=== PATIENT | female | born 1940 | race Caucasian/White ===

== ENCOUNTER 2017-06-21 09:21 | Outpatient (RCR) | payer MEDICARE, OTHER, SELFPAY ==
[2017-06-16 01:14] VITALS: BP 151/75; PULSE 62; RESP 16; TEMP 36.6
[2017-06-21 12:29] VITALS: BP 140/82; PULSE 66; RESP 18; TEMP 37
--- NOTE | 2017-06-21 14:23 | PCM.WC.PN ---
(1) Wound dehiscence, surgical Status: Chronic Current Visit: Yes Qualifiers: Encounter type: subsequent encounter (2) Wound, open, back Status: Chronic Current Visit: Yes Qualifiers: Encounter type: subsequent encounter Laterality: unspecified laterality Qualified Code(s): S21.209D - Unspecified open wound of unspecified back wall of thorax without penetration into thoracic cavity, subsequent encounter Code(s): S21.209A - Unspecified open wound of unspecified back wall of thorax without penetration into thoracic cavity, initial encounter Type of Wound Date of Service: 06/21/17 Chief Complaint: nonhealing surgical wound of lumbar spine History of Wound: Ijeoma is a 77 yo female that presents for evaluation and treatment of a nonhealing surgical wound dehiscence of her lumbar spine s/p spinal fusion revision on 04/25/17 at [facility]. Her recovery was complicated by anesthesia intolerance and development of pressure ulcers stage II on her buttocks as well as dehiscence of the wound with nonhealing at the distal end of the incision. She was transferred to inpatient Rehabilitation unit at [facility] after discharge from [facility] and discharged on 05/22/17 to home and will be getting continued care from Home Health for PT. The pressure ulcers healed during her stay at [facility] but the surgical wound did not. It was being treated with betadine and gauze. She was also started on Keflex 500 mg twice daily x 10 days and has two days left of treatment. Her denies any bleeding, only a small amount of drainage is present. Progress of Wound: Ijeoma is here in follow up for a surgical wound dehiscence. She tolerated the Natalee dressings and is healed today. She denies any fever or chills or drainage or erythema. - Physical Exam Vital Signs Temp Pulse Resp BP 98.6 F 66 18 140/82 H 06/21/17 12:29 06/21/17 12:29 06/21/17 12:29 06/21/17 12:29 General: Alert, Oriented x3, Cooperative, No apparent distress HEENT: Atraumatic, Normocephalic Oral: Moist Mucosa Skin: Ulcer/ Wound Wound Measurements and Assessment WC - Nurse 1 - General Ulcer Measurement Start: 06/21/17 12:29 Freq: Status: Active Protocol: Activity Type Activity Date Activity User E-Sign Co-Sign Detail Recorded Client Recorded Date Recorded By Document 06/21/17 12:29 [facility] [id number] 06/21/17 12:39 [facility] 06/21/17 12:29 Wound Center Nurse 1 [Ulcer Assessment Protocol: WC.WD.LOC] #1 LUMBAR INCISION DEHISCENCE -Combined with other wound No -Current Size (cm) - Length 0.1 -Current Size (cm) - Width 0.1 -Current Size (cm) - Depth 0.1 -Total Square Cm 0.01 -Epithelialization Large 67-100% -Tunneling No -Undermining/Tunneling No -Exudate Amt None Present (0 %) -Structure Exposed N/A -Texture (Kaitlin-wound Skin Appearance) Scarring -Moisture (Kaitlin-wound Skin Appearance Dry/Scaly ) -Color (Kaitlin-wound Skin Appearance) Assessed -Temperature (Kaitlin-wound Skin No Abnormality Appearance) (Pt Warm) -Tenderness on Palpation (Kaitlin-wound No Skin Appearance) -Ulcer Cleansing Rinsed/ Irrigated with Saline -Foul Odor after Cleansing No -Anesthetic Used 4% Lidocaine Solution - Nurse 2 - General Ulcer CM Notes Start: 06/21/17 12:29 Freq: Status: Active Protocol: Activity Type Activity Date Activity User E-Sign Co-Sign Detail Recorded Client Recorded Date Recorded By Document 06/21/17 12:56 [id number] 06/21/17 12:58 06/21/17 12:56 Wound Center Nurse 2 [Procedure/Treatment] -Time 12:57 -Correct Patient Yes -Correct Side, Site, Position Yes -Correct Procedure Yes -Procedure Performed Yes -Post Debridement Size (cm) - Length 0 -Post Debridement Size (cm) - Width 0 -Post Debridement Size (cm) - Depth 0 -Total Square Cm 0 -Wound/Ulcer Outcome Healed- Epithelialized -Ulcer Cleansing Rinsed/ Irrigated with Saline -Foul Odor after Cleansing No -Bioengineered Tissue No -Cetacaine [place] No -Topical Lidocaine (%) 5 -Bleeding Controlled with NA -Treatment Response Procedure Tolerated Well [See Physician Procedure note for Specifics] Pain Scale: 0-10 Numeric [Pain] -Is Patient Pain Free? Yes Psych/Mental Status: Normal Affect, Appropriate Debridement Note Post-Debridement Measurements/Treatment - Nurse 2 - General Ulcer CM Notes Start: 06/21/17 12:29 Freq: Status: Active Protocol: Activity Type Activity Date Activity User E-Sign Co-Sign Detail Recorded Client Recorded Date Recorded By Document 06/21/17 12:56 [id number] 06/21/17 12:58 06/21/17 12:56 Wound Center Nurse 2 #1 LUMBAR INCISION DEHISCENCE -Time 12:57 -Correct Patient Yes -Correct Side, Site, Position Yes -Correct Procedure Yes -Procedure Performed Yes -Post Debridement Size (cm) - Length 0 -Post Debridement Size (cm) - Width 0 -Post Debridement Size (cm) - Depth 0 -Total Square Cm 0 -Wound/Ulcer Outcome Healed- Epithelialized -Ulcer Cleansing Rinsed/ Irrigated with Saline -Foul Odor after Cleansing No -Bioengineered Tissue No -Cetacaine [place] No -Topical Lidocaine (%) 5 -Bleeding Controlled with NA -Treatment Response Procedure Tolerated Well Pain Scale: 0-10 Numeric Is Patient Pain Free? Yes Wound debrided: lumbar incision dehiscence Laterality: Not Applicable No debridement was completed today Assessment/Plan Active Problems Wound dehiscence, surgical (Chronic) Wound, open, back (Chronic) Assessment: surgical wound dehiscence of lumbar surgical wound Plan: Ijeoma'avery wound is healed today. Discussed using lotion to the area to avoid re-opening of the wound and advised her to call if she has any drainage or signs of dehiscence of the wound again. It has been a pleasure taking care of her. She will be discharged from the wound center and will return as needed.
--- NOTE | 2017-06-21 14:29 | PN.PCM_ITS ---
(1) Wound dehiscence, surgical Status: Chronic Current Visit: Yes Qualifiers: Encounter type: subsequent encounter (2) Wound, open, back Status: Chronic Current Visit: Yes Qualifiers: Encounter type: subsequent encounter Laterality: unspecified laterality Qualified Code(s): S21.209D - Unspecified open wound of unspecified back wall of thorax without penetration into thoracic cavity, subsequent encounter Code(s): S21.209A - Unspecified open wound of unspecified back wall of thorax without penetration into thoracic cavity, initial encounter Type of Wound Date of Service: 06/21/17 Chief Complaint: nonhealing surgical wound of lumbar spine History of Wound: Ijeoma is a 77 yo female that presents for evaluation and treatment of a nonhealing surgical wound dehiscence of her lumbar spine s/p spinal fusion revision on 04/25/17 at [facility]. Her recovery was complicated by anesthesia intolerance and development of pressure ulcers stage II on her buttocks as well as dehiscence of the wound with nonhealing at the distal end of the incision. She was transferred to inpatient Rehabilitation unit at [facility] after discharge from [facility] and discharged on 05/22/17 to home and will be getting continued care from Home Health for PT. The pressure ulcers healed during her stay at [facility] but the surgical wound did not. It was being treated with betadine and gauze. She was also started on Keflex 500 mg twice daily x 10 days and has two days left of treatment. Her denies any bleeding, only a small amount of drainage is present. Progress of Wound: Ijeoma is here in follow up for a surgical wound dehiscence. She tolerated the Natalee dressings and is healed today. She denies any fever or chills or drainage or erythema. - Physical Exam Vital Signs Temp Pulse Resp BP 98.6 F 66 18 140/82 H 06/21/17 12:29 06/21/17 12:29 06/21/17 12:29 06/21/17 12:29 General: Alert, Oriented x3, Cooperative, No apparent distress HEENT: Atraumatic, Normocephalic Oral: Moist Mucosa Skin: Ulcer/ Wound Wound Measurements and Assessment WC - Nurse 1 - General Ulcer Measurement Start: 06/21/17 12:29 Freq: Status: Active Protocol: Activity Type Activity Date Activity User E-Sign Co-Sign Detail Recorded Client Recorded Date Recorded By Document 06/21/17 12:29 [facility] [id number] 06/21/17 12:39 [facility] 06/21/17 12:29 Wound Center Nurse 1 [Ulcer Assessment Protocol: WC.WD.LOC] #1 LUMBAR INCISION DEHISCENCE -Combined with other wound No -Current Size (cm) - Length 0.1 -Current Size (cm) - Width 0.1 -Current Size (cm) - Depth 0.1 -Total Square Cm 0.01 -Epithelialization Large 67-100% -Tunneling No -Undermining/Tunneling No -Exudate Amt None Present (0 %) -Structure Exposed N/A -Texture (Kaitlin-wound Skin Appearance) Scarring -Moisture (Kaitlin-wound Skin Appearance Dry/Scaly ) -Color (Kaitlin-wound Skin Appearance) Assessed -Temperature (Kaitlin-wound Skin No Abnormality Appearance) (Pt Warm) -Tenderness on Palpation (Kaitlin-wound No Skin Appearance) -Ulcer Cleansing Rinsed/ Irrigated with Saline -Foul Odor after Cleansing No -Anesthetic Used 4% Lidocaine Solution - Nurse 2 - General Ulcer CM Notes Start: 06/21/17 12:29 Freq: Status: Active Protocol: Activity Type Activity Date Activity User E-Sign Co-Sign Detail Recorded Client Recorded Date Recorded By Document 06/21/17 12:56 [id number] 06/21/17 12:58 06/21/17 12:56 Wound Center Nurse 2 [Procedure/Treatment] -Time 12:57 -Correct Patient Yes -Correct Side, Site, Position Yes -Correct Procedure Yes -Procedure Performed Yes -Post Debridement Size (cm) - Length 0 -Post Debridement Size (cm) - Width 0 -Post Debridement Size (cm) - Depth 0 -Total Square Cm 0 -Wound/Ulcer Outcome Healed- Epithelialized -Ulcer Cleansing Rinsed/ Irrigated with Saline -Foul Odor after Cleansing No -Bioengineered Tissue No -Cetacaine [place] No -Topical Lidocaine (%) 5 -Bleeding Controlled with NA -Treatment Response Procedure Tolerated Well [See Physician Procedure note for Specifics] Pain Scale: 0-10 Numeric [Pain] -Is Patient Pain Free? Yes Psych/Mental Status: Normal Affect, Appropriate Debridement Note Post-Debridement Measurements/Treatment - Nurse 2 - General Ulcer CM Notes Start: 06/21/17 12:29 Freq: Status: Active Protocol: Activity Type Activity Date Activity User E-Sign Co-Sign Detail Recorded Client Recorded Date Recorded By Document 06/21/17 12:56 [id number] 06/21/17 12:58 06/21/17 12:56 Wound Center Nurse 2 #1 LUMBAR INCISION DEHISCENCE -Time 12:57 -Correct Patient Yes -Correct Side, Site, Position Yes -Correct Procedure Yes -Procedure Performed Yes -Post Debridement Size (cm) - Length 0 -Post Debridement Size (cm) - Width 0 -Post Debridement Size (cm) - Depth 0 -Total Square Cm 0 -Wound/Ulcer Outcome Healed- Epithelialized -Ulcer Cleansing Rinsed/ Irrigated with Saline -Foul Odor after Cleansing No -Bioengineered Tissue No -Cetacaine [place] No -Topical Lidocaine (%) 5 -Bleeding Controlled with NA -Treatment Response Procedure Tolerated Well Pain Scale: 0-10 Numeric Is Patient Pain Free? Yes Wound debrided: lumbar incision dehiscence Laterality: Not Applicable No debridement was completed today Assessment/Plan Active Problems Wound dehiscence, surgical (Chronic) Wound, open, back (Chronic) Assessment: surgical wound dehiscence of lumbar surgical wound Plan: Ijeoma'avery wound is healed today. Discussed using lotion to the area to avoid re-opening of the wound and advised her to call if she has any drainage or signs of dehiscence of the wound again. It has been a pleasure taking care of her. She will be discharged from the wound center and will return as needed.
== END 2017-07-14 23:59 ==
LOC: WC 09:21
PROVIDERS: Family Provider Family Medicine; PCP Family Medicine; Visit Provider Family Medicine
DX: T81.30XA Disruption of wound, unspecified, initial encounter (principal); Y83.8 Other surgical procedures as the cause of abnormal reaction of the patient, or of later complication, without mention of misadventure at the time of the procedure
CPT/HCPCS: 11042; 99213; G0463

== ENCOUNTER → 2017-09-19 15:33 | Outpatient (CLI) | payer MEDICARE, OTHER, SELFPAY ==
--- NOTE | 2017-09-19 15:36 | US_ITS ---
STUDY: SUPERFICIAL ULTRASOUND - LATERAL LEFT CALF REASON FOR EXAM: Female, 77 years old. Area of palpable mass/hardness in the lateral left calf. TECHNIQUE: A superficial ultrasound was performed with real-time and static alvarez-scale imaging. COMPARISON: None. FINDINGS: No discrete mass or fluid collection is demonstrated. Within the region of interest, there is fluid within the interstices of subcutaneous fat, consistent with edema. US/Ext Non Vasc Limited/Soft Tiss IMPRESSION: Subcutaneous edema in the area of interest. No discrete mass or fluid collection. Electronically Signed: Luís Pizarro MD at 4:36 EST , Service support ,
== END ==
PROVIDERS: Family Provider Family Medicine; PCP Family Medicine; Visit Provider Family Medicine
DX: R22.42 Localized swelling, mass and lump, left lower limb (principal)
CPT/HCPCS: 76882

== ENCOUNTER → 2017-10-30 09:58 | Outpatient (CLI) | payer MEDICARE, OTHER, SELFPAY ==
[2017-10-30 11:05] LABS: Absolute Lymphocyte Count 1.64 X10^3/ul (0.83-4.51); Absolute Neutrophil Count 3.9 X10^3/uL (2.0-7.7); Basophil# 0.04 X10^3/uL; Basophil% 0.6 % (0-1); Eosinophil# 0.25 X10^3/uL; Eosinophils% 3.7 % (0-5); Hematocrit 43.4 % (37-47); Lymphocyte # 1.64 X10^3/ul (4.0); Lymphocyte % 24.4 % (19-41); Mean Corp Hgb Conc 32.3 g/gl (32-36); Mean Corpuscular Hgb 29.8 pg (27.0-32.0); Mean Corpuscular Volume 92.3 fL (81-99); Mean Platelet Vol. 9.2 fl (6.2-12.0); Monocyte# 0.87 X10^3/uL; Monocyte% 12.9 % (0-10); Neutrophil # 3.86 X10^3/uL (2.7-7.7); Neutrophil % 57.4 % (47-70); Platelet Count 323 K/mm3 (150-450); RBC Distribution Width CV 16.5 % (11.6-14.6); RBC Distribution Width SD 54.6 fl (35.1-43.9); White Blood Count 6.7 K/mm3 (4.4-11.0)
[2017-10-30 11:07] LABS: POSITIVE COUNT NO; POSITIVE DIFFERENTIAL NO; POSITIVE MORPHOLOGY NO
[2017-10-30 11:28] LABS: Anion Gap 8 (5-15); BUN 25 mg/dL (7-18); BUN/Creat Ratio 20.5 RATIO (10-20); Calcium,Total 8.8 mg/dL (8.5-10.1); Chloride 110 mmol/L (98-107); Creatinine, Serum 1.22 mg/dL (0.55-1.02); EST Glomerular Filtration Rate 45 mL/min (>60); Est Glom Filt Rate - Afr Amer 55 mL/min (>60); Glucose 90 mg/dL (74-106); Iron 112 ug/dL (50-170); Potassium 3.9 mmol/L (3.5-5.1); Sodium Level 142 mmol/L (136-145)
== END ==
PROVIDERS: Family Provider Family Medicine; PCP Family Medicine; Visit Provider Family Medicine
DX: I10 Essential (primary) hypertension (principal); D50.9 Iron deficiency anemia, unspecified
CPT/HCPCS: 36415; 80048; 83540; 85025

== ENCOUNTER → 2017-11-14 13:19 | Outpatient (CLI) | payer MEDICARE, OTHER, SELFPAY ==
--- NOTE | 2017-11-14 13:21 | BI_ITS ---
MAMMOGRAPHY - BILATERAL SCREENING REASON FOR EXAM: Female, 77 years old. Routine annual screening examination. PERTINENT HISTORY: Daughter with breast cancer. TECHNIQUE: Digital bilateral breast emma (3D mammographic acquisition) in the CC and MLO projections. 2-D mediolateral oblique (MLO) and craniocaudad (CC) views of both breasts were obtained. CAD: Full Field Digital Mammography with Computer Added Detection was performed. COMPARISON: None. Baseline examination. FINDINGS: Breast Composition: The breasts are heterogeneously dense, which may obscure small masses. There are no dominant masses or suspicious calcifications. Small benign-appearing bilateral axillary lymph nodes. No other significant abnormalities are identified. BI/SCREENING MAMM (CAD), BILAT IMPRESSION: Negative screening mammogram. Yearly followup mammogram recommended. (A) ASSESSMENT CATEGORY: BIRADS Category 2: Benign. A letter regarding these results will be sent to the patient by the facility within 30 days. Approximately 10% of breast cancers are not detected by mammography. A normal mammogram should not delay biopsy of a clinically suspicious abnormality. [id number] Electronically Signed: Selvin Price MD at 10:09 EDT Tel [phone], Service support ,
--- NOTE | 2017-11-14 13:22 | BD_ITS ---
STUDY: DUAL ENERGY X-RAY ABSORPTIOMETRY / DXA REASON FOR EXAM: Female, 77 years old. Postmenopausal female. Smoking history. Takes Fosamax for 2 to 3 years. History of spinal fusion and left hip replacement. TECHNIQUE: Bone Mineral Density (BMD) measurements of bilateral forearm were obtained. COMPARISON: None. FINDINGS: Right Forearm: g/cm2 (0.790) / T-score (-1.1) / Z-score (1.6) Left Forearm: g/cm2 (0.799) / T-score (-1.0) / Z-score (1.7) BD/Dexa Bone Density/Append Skel IMPRESSION: The patient is considered osteopenic as outlined below according to World Joey Organization (WHO) criteria with a moderate fracture risk. Reference Information: The T-score is the number of standard deviations above or below the standard which is normal for young adults at their peak bone mineral density. The World Health Organization (WHO) interprets the T-scores as follows: Above -1 Normal bone density Between -1 and -2.5 Osteopenia Equal to / or below -2.5 Osteoporosis As a practical clinical guideline, osteopenia may be graded as follows: Mild -1 through -1.5 Moderate -1.6 through -2.0 Severe -2.1 through -2.4 The Z-score is the number of standard deviations above or below age-matched controls. A Z-score of less than -1.5 would be considered abnormal. References: 1. NIH Osteoporosis and Related Bone Diseases http://www.osteo.org 2. International Society for Clinical Densitometry http://www.iscd.org 3. National Osteoporosis Foundation http://www.nof.org Electronically Signed: Tato Garza DO at 9:05 EDT Tel [phone], Service support ,
== END ==
PROVIDERS: Family Provider Family Medicine; PCP Family Medicine; Visit Provider Nurse Practitioner Women's Health
DX: Z12.31 Encounter for screening mammogram for malignant neoplasm of breast (principal); N95.9 Unspecified menopausal and perimenopausal disorder
CPT/HCPCS: 77063; 77067; 77081

== ENCOUNTER 2017-12-20 10:00 | Outpatient (RCR) | payer MEDICARE, OTHER, SELFPAY ==
--- NOTE | 2017-11-06 16:27 | HP.PTEVAL_ITS ---
Patient's Visit Information DANAE KYLE is a 77 year old F referred to Physical Therapy by Out of Town Doctor with a diagnosis of POST LAMINECTOMY SYNDROME. Date of Evaluation: 11/06/17 Physical Therapist: Mirian Baeza - Visit Plan Frequency: 2-3x /Week Duration: 2 Weeks Plan: PATIENT IS 6 MONTHS PO LUMBAR FUSION T11 TO PELVIS. AQUATIC THERAPY FOR GAIT TRAINING, POSTURE CORRECTION/STRENGTHENING, INSTRUCTION IN APPROPRIATE BODY MECHANICS AND ACTIVITY MODIFICATIONS. DLS STARTING WITH A NEUTRAL SPINE PROGRESSING ROM TOLERATED. JUAN CARLOS LE ROM, STRETCHING AND STRENGTHENING. HEP INSTRUCTION. - Subjective Subjective: Diagnosis: POST LAMINECTOMY SYNDROME. Work/Leisure: RETIRED. Disability: NO. Present symptoms: LEFT KNEE PAIN. LOW BACK PAIN. LOW BACK DECREASED SENSATION/NUMBNESS. Present since: S/P 2ND LUMBAR SURGERY 05/03/[address] NARVAEZ. FIRST BACK SURGERY WAS [address] SWEETIE BURNS. Pain Scale: LBP: WORST 8/10, LEAST 0/10. LEFT KNEE: WORST 8/10, LEAST 0/10. Currently: LBP: 8/10, LEFT KNEE 0/10. Commenced as a result of: LOW BACK PROBLEMS AND LEFT KNEE PAIN STARTED FOR NO APPARENT REASON. DX'D WITH ARTHRITIS. Worse: GARDENING, UP AND DOWN STAIRS, CERTAIN LEG MVMTS, WALKING WITHOUT WALKER, BENDING, TWISTING. Better: SITTING IN STRAIGHT BACK CHAIR, SITTING ANYWHERE, LYING DOWN. MOIST HEAT. Disturbed sleep: NO. Previous history/Previous treatment: 2 BACK SURGERIES. PT. [facility]. NO PRIOR LEFT KNEE TREATMENTS. Coughing/sneezing/straining: NO. Gait: USING WALKER ALMOST ALL THE TIME BUT ROOM TO ROOM AT HOME WITHOUT IT SOMETIMES. TRIED CANE BUT LEFT LEG ISN'T STEADY ENOUGH TO USE CANE. LEFT KNEE FABIO. IT HURTS HER BACK AND KNEE TO WALK WITHOUT THE CANE. GETS OUT OF BREATH WALKING. Difficulty initiating urinatin: NO. Accidents: NO. Unexplained weight loss: NO. Imaging: X-RAYS OF BACK SINCE SURGERY AND SURGEON TOLD HER THAT HE SEES EXCELLENT HEALING. PMH: HTN, SLEEP APNEA, 2003 PATIENT HAD LYMPHOMA TREATED WITH CHEMO. NO RADIATION TREATMENT. RIGHT FOOT SURGERY. RIGHT TKR, LT, LEFT ARM FX. INCONTINENCE. OTHER: NO PAIN AFTER SURGERY UNTIL LAST WEEKEND WHEN SHE DID SOME GARDENING AND NOW SHE HAS LOW BACK PAIN. SOMETIMES THE PAIN IS SHARP. HAS NOT SEEN OR TALKED TO SURGEONS OFFICE SINCE. STATES SHE THINKS IT IS JUST MUSCLE PAIN. NOT TAKING ANY PAIN MEDICINE. LEFT KNEE NEEDS REPLACEMENT - MAYBE JANUARY. PATIENT HAS DONE WATER THERAPY IN THE PAST AND IS OPEN TO DOING IT AGAIN. PATIENT REPORTS HER LEFT LEG IS LONGER THAN THE RIGHT AND SHE IS HOPING THEY CAN FIX THAT WHEN SHE HAS THE LEFT KNEE REPLACED. - Objective Sitting Posture: POOR. Standing Posture: POOR. LLE LONGER THAN RIGHT. Lordosis: REDUCED. Active Correction of posture: NE. Other Observations: INDEP GAIT INTO PT WITH FWW. PATIENT IS SIGNIFICANTLY DEPENDENT ON WALKER FOR BALANCE. SHE WALKS WITHOUT AN ASSISTIVE DEVICE AT HOME SOME AND WHEN SHE AMBULATES IN THE TREATMENT ROOM WITHOUT AN ASSISTIVE DEVICE SHE IS VERY UNSAFE HAVING DIFFICULTY FULLY WEIGHT BEARING ON THE LLE. HER LLE BEING SIGNIFICANTLY LONGER THAN HER RIGHT CONTRIBUTES TO THE PROBLEM. SHE REPORTS SHE WAS WEARING A LIFT IN THE RIGHT SHOE BEFORE BACK SURGERY BUT SHE REMOVED IT AFTER SURGERY BECAUSE IT BECAME AWKWARD. Motor deficit: JUAN CARLOS LE STRENGTH IS GROSSLY 5/5 WITH MMT'ING EXCEPT HIPS GRADED 4-/5. Sensory deficit: JUAN CARLOS LE LIGHT TOUCH SENSATION IS INTACT AND SYMMETRICAL. ROM deficit: JUAN CARLOS LE ROM WFL. Dural Signs : NEGATIVE JUAN CARLOS LE DURAL SIGNS. Lumbar mvmt loss: flex - MOD. ext - YANDY. R SG - YANDY. L SG - YANDY. Core strength: POOR. Palpation: PATIENT HAS A LONG LOWER THORACIC, LUMBOSACRAL INCISION THAT IS WELL HEALED WITHOUT ANY SIGNS OF INFECTION. SHE IS NOT TENDER TO PALPATION. - Goals Goal 1:: DECREASE C/O LOW BACK AND LE SX'S. Goal Time Frame: 4-6 Weeks Goal 2:: IMPROVE STANDING, WALKING, ADL AND HOMEMAKING FUNCTION Goal Time Frame: 4-6 Weeks Goal 3:: INSTRUCT IN PROPHYLAXIS Goal Time Frame: 4-6 Weeks - Rehabilitation Potential Rehabilitation Potential: Fair - Anticipated Interventions Patient/Client Instruction: Educate patient on: Condition, Plan of Care, Risk Factors, Benefits of Fitness Program For the Purpose of:: To improve self management Therapeutic Exercise to Include: Strength training, Balance training, Body mechanics, Postural training, Gait and locomotor training, In an aquatic setting, Dynamic Lumbar Stabilization For the Purpose of:: To decrease pain, To improve muscle performance and motor function, To increase tolerance to activity/condition/position, To improve ability of physical actions for home/community/work/leisure, To improve gait and locomotor functions Thank you for the opportunity to evaluate your patient. For Medicare and Medicare HMO plans, please review the plan of care and approve it. It will need to be FAXED BACK to us at [phone] for Medicare purposes. Please let me know if there are questions or concerns regarding this plan of care. Physician Signature: Date:
--- NOTE | 2017-12-20 10:00 | DT_ITS ---
This patient was seen during an EMR downtime December 16, 2017 - December 23, 2017. This patient may have a combination of paper and electronic documentation or all paper documentation. All documentation is viewable within the e-chart portion of [facility] for each patient visit.
--- NOTE | 2018-01-08 14:28 | HP.PTDCSUM_ITS ---
HP - PT D/C Summary It has been my pleasure to treat DANAE KYLE under orders from Out of Town Doctor, for the diagnosis of POST LAMINECTOMY SYNDROME for a total of 6 visit(s) . Discharge Date: 01/08/18 Please see the following information for a summary of their discharge status. - Subjective Subjective: PATIENT REPORTS SHE IS SORE BUT NOT PAINFUL IN LOW BACK FROM WATER EX'S LAST VISIT. PATIENT REPORTS INCREASED POSTURAL AWARENESS/STRENGTH AND STRENGTH IN LEGS. LEFT TKR PENDING 12/24/17. - Overall Improvement % Improvement: 70 - Objective Objective/Function: THIS PATIENT DEMONSTRATES INDEP GAIT INTO PT WITH FWW. INDEP TRANSFER SIT TO STAND WITHOUT UE ASSIST. LUMBAR MVMT LOSS: FLEX - MIN, EXT - YANDY, LEFT SG - YANDY, RIGHT SG - MOD TO YANDY. PATIENT DENIES LBP WITH ROM TESTING SLS TESTING: ABLE TO BALANCE ON EA LE X > 10 SEC WITHOUT UE ASSIST - NO INCREASED PAIN REPORTED EVEN WITH SLS ON LLE TODAY. MMT: RIGHT LE 5/5 EXCEPT HIP GRADED 4/5. LLE 5/5 WITH MMT EXCEPT HIP 3+ TO 4-/5 AND LEFT KNEE ROM -8 DEG EXT TO 123 DEG FLEX IN SUPINE WITH A HEEL SLIDE. Due to electronic downtime procedure, the information from December 16 2017 through December 22 2017 was electronically scanned into the medical record - Goals Goal 1:: DECREASE C/O LOW BACK AND LE SX'S. Goal Progress: Goal Met Goal 2:: IMPROVE STANDING, WALKING, ADL AND HOMEMAKING FUNCTION Goal Progress: Goal Met Goal 3:: INSTRUCT IN PROPHYLAXIS Goal Progress: Goal Met - Plan Plan: D/C DUE TO L TKR PENDING 12/24/17. - D/C Information If there are questions or concerns regarding this patient's physical therapy, please feel free to call me at [phone]. Thank you for the referral of this patient. Sincerely, Mirian Baeza
== END 2017-12-20 19:00 | disposition home or self-care (01) ==
LOC: PT 10:00
PROVIDERS: Family Provider Family Medicine; PCP Family Medicine
DX: M96.1 Postlaminectomy syndrome, not elsewhere classified (principal)
CPT/HCPCS: 97113; 97162; 97164; 97530

== ENCOUNTER 2017-12-24 07:09 | Inpatient (IN) | payer MEDICARE, OTHER, SELFPAY ==
[2017-12-13 14:48] VITALS: BP 140/79; PULSE 53; RESP 18; TEMP 37; O2SAT 96; BMI 26.4
--- NOTE | 2017-12-13 14:54 | EKG12_ITS ---
Test Reason : Blood Pressure : / mmHG Vent. Rate : 047 BPM Atrial Rate : 047 BPM P-R Int : 192 ms QRS Dur : 086 ms QT Int : 474 ms P-R-T Axes : 051 039 052 degrees QTc Int : 419 ms Marked sinus bradycardia Possible Left atrial enlargement Abnormal ECG Confirmed by VERONICA FLORES ([id number]), society editor RASHAUN BURNS ([id number]) on 12/23/2017 6:47:59 PM Referred By: Anthony Barrios Confirmed By:VERONICA FLORES
[2017-12-24] VITALS (15 sets, daily range): BP systolic 134–156; BP diastolic 57–82; PULSE 46–74; RESP 16–18; TEMP 34.7–36.6; O2SAT 93–98; BMI 26.4
[2017-12-24] MEDS: oxyCODONE HCl Cr 10 MG Tablet PO (07:39)
[2017-12-24] MEDS: Acetaminophen 500 MG Tablet 1000 MG PO ×3 (07:39→21:50)
[2017-12-24] MEDS: Cefazolin 2 GM in 0.9% Normal Saline 100 ML IV (08:26)
--- NOTE | 2017-12-24 08:30 | RAD_ITS ---
STUDY: X-RAY - LEFT KNEE REASON FOR EXAM: Postop total knee replacement. TECHNIQUE: 2 view(s) of the knee. COMPARISON: Radiographs 05/16/2017. FINDINGS: There is a left total knee arthroplasty without evidence of complication. There is postoperative gas in the soft tissues. RAD/Knee 1 or 2 Views IMPRESSION: Uncomplicated left total knee arthroplasty. Electronically Signed: Miko Neville MD at 11:44 EDT Tel , Service support ,
[2017-12-24] MEDS: Famotidine 20 MG Tablet PO (12:35)
[2017-12-24] MEDS: Senna/Docusate Sodium 1 Tablet 2 TABLET PO ×2 (12:35→21:51)
[2017-12-24] MEDS: hydrALAZINE 25 MG Tablet PO ×2 (14:36→21:51)
[2017-12-24] MEDS: cloNIDine HCl 0.2 MG Tablet 0.1 MG PO ×2 (14:36→21:51)
[2017-12-24] MEDS: Gabapentin 600 MG Tablet PO ×2 (14:37→16:53)
[2017-12-24] MEDS: Tolterodine Tartrate 2 MG CAP.SA PO (14:37)
[2017-12-24] MEDS: Cefazolin 1 GM/50 ML BAG IV ×2 (15:40→23:13)
[2017-12-24] MEDS: oxyCODONE 5 MG Tablet PO ×2 (15:43→19:48)
[2017-12-24] MEDS: Atenolol 25 MG Tablet PO (21:51)
[2017-12-24] MEDS: Pantoprazole Sodium 20 MG Tablet PO (21:51)
[2017-12-25] VITALS (12 sets, daily range): BP systolic 132–195; BP diastolic 74–102; PULSE 45–60; RESP 16–18; TEMP 36.4–36.8; O2SAT 92–95
[2017-12-25] MEDS: oxyCODONE 5 MG Tablet PO ×4 (05:08→21:07)
[2017-12-25] MEDS: Acetaminophen 500 MG Tablet 1000 MG PO ×3 (05:08→21:06)
[2017-12-25 05:56] LABS: Hematocrit 37.4 % (37-47); Mean Corp Hgb Conc 32.1 g/gl (32-36); Mean Corpuscular Volume 93.5 fL (81-99); Mean Platelet Vol. 8.9 fl (6.2-12.0); Platelet Count 234 K/mm3 (150-450); RBC Distribution Width CV 14.4 % (11.6-14.6); RBC Distribution Width SD 49.4 fl (35.1-43.9); White Blood Count 9.2 K/mm3 (4.4-11.0)
[2017-12-25 06:03] LABS: Scan Indicated on CBC? Y/N NO
[2017-12-25 06:13] LABS: Anion Gap 8 (5-15); BUN 22 mg/dL (7-18); BUN/Creat Ratio 19.5 RATIO (10-20); Calcium,Total 8.4 mg/dL (8.5-10.1); Chloride 108 mmol/L (98-107); Creatinine, Serum 1.13 mg/dL (0.55-1.02); EST Glomerular Filtration Rate 49 mL/min (>60); Est Glom Filt Rate - Afr Amer 60 mL/min (>60); Estimated Creatinine Clearance 34.86 ml/min; Glucose 107 mg/dL (74-106); Potassium 4.1 mmol/L (3.5-5.1); Sodium Level 140 mmol/L (136-145)
[2017-12-25] MEDS: Senna/Docusate Sodium 1 Tablet 2 TABLET PO ×2 (08:33→21:06)
[2017-12-25] MEDS: Famotidine 20 MG Tablet PO (08:33)
[2017-12-25] MEDS: Pantoprazole Sodium 20 MG Tablet PO ×2 (08:33→21:06)
[2017-12-25] MEDS: Gabapentin 600 MG Tablet PO ×3 (08:33→16:21)
[2017-12-25] MEDS: Losartan Potassium 100 MG Tablet PO (08:33)
[2017-12-25] MEDS: Tolterodine Tartrate 2 MG CAP.SA PO (08:33)
[2017-12-25] MEDS: Multivitamins,Ther W-Minerals Tablet 1 TABLET PO (08:33)
[2017-12-25] MEDS: Aspirin 325 MG Tablet PO ×2 (08:33→16:21)
[2017-12-25] MEDS: Celecoxib 200 MG Capsule PO ×2 (08:33→21:07)
--- NOTE | 2017-12-25 09:28 | PCM.PN.ORT ---
Subjective: Patient is resting comfortably in chair at bedside during exam. No adverse events overnight. Pain has been well controlled in the left knee. She plans for discharge to home with her . She admits that she had some blood on her pad this morning. She denies any urinary burning, urgency, frequency. She is considering discharge to home today. Objective: Patient is alert and oriented ?3. No acute distress at rest. Breathing easily without respiratory distress. Inspection of left knee reveals a dressing with 1 spot of dry bloody drainage. Negative Anthony bilaterally. Sensation intact to light touch bilaterally. Pedal pulses present and equal bilaterally. Without signs of DVT. Neurovascularly intact. - Physical Exam Vital Signs Temp Pulse Resp BP Pulse Ox 97.6 F L 52 L 18 156/74 H 94 12/25/17 08:30 12/25/17 08:30 12/25/17 08:30 12/25/17 08:30 12/25/17 08:30 Oxygen Flow Rate (L/min) 3 Oxygen Delivery Method Room Air Weight: 69.7 kg Body Mass Index (BMI) 26.4 Intake and Output for Last 24 Hours 12/23/17 12/24/17 12/25/17 23:59 23:59 23:59 Intake Total 3529 / 3529 120 / 120 Output Total 1500 / 1500 Balance 2028 / 2028 120 / 120 Laboratory Tests Past 24 Hrs 12/25/17 12/25/17 05:30 05:30 WBC 9.2 RBC 4.00 L Hgb 12.0 Hct 37.4 MCV 93.5 MCH 30.0 MCHC 32.1 RDW 14.4 RDW Differential 49.4 H Plt Count 234 MPV 8.9 Sodium 140 Potassium 4.1 Chloride 108 H Carbon Dioxide 24.0 Anion Gap 8 BUN 22 H Creatinine 1.13 H Estim Creat Clear Calc 34.86 Est GFR (MDRD) Af Amer 60 Est GFR (MDRD) Non-Af 49 L BUN/Creatinine Ratio 19.5 Glucose 107 H Calcium 8.4 L Medical Necessity - Tobacco Use Smoking Status: Former smoker Assessment/Plan All Active Problems (Last Reviewed 11/06/17 @ 09:39 by Harriet Sanchez NP-C) Osteopenia (Acute) History of deep venous thrombosis (DVT) of distal vein of right lower extremity (Resolved) Postlaminectomy syndrome (Acute) 1. Status post left TKA; postop day #1 2. Continue OxyIR and Tylenol for pain control 3. DVT prophylaxis; bilateral teds, SCDs begin aspirin therapy 4. Begin PT/OT; weightbearing as tolerated left lower extremity with a walker 5. Encourage incentive spirometry 6. Continue discharge planning with case management. Consider discharge to home today if having adequate pain control moving well with physical therapy
--- NOTE | 2017-12-25 09:36 | PCM.DC.TKR ---
Discharge Diet: No Restrictions Discharge Activity: May Not Drive, May not drive while taking narcotic pain medications., Use Walker May shower in (days): 2 - Okay to shower over Mepilex dressing Ice area for (Minutes): 20 - every hour while awake. Weight Bearing Status: Weight bearing as tolerated Elevate: Operative Extremity Additional Activity Instructions:: Wear elastic stockings for 2 weeks after your surgery. See postoperative pink sheet Call your doctor if your incision/area has: Continuous Slow Oozing, Sudden Increased Bleeding, Increased Pain/ Swelling, Increased Redness, Foul Smelling Discharge Call your doctor if you observe: Fever of 101 or Higher, Coldness, Increased Pain, Numbness or Tingling, Change in Color, Calf discomfort, Uncontrolled pain Remove Dressing in (days):: 5 Cleanse incision/area with: Soap & Water Additional Dressing/Incision Instructions:: See postoperative pink sheet Allergies/Adverse Reactions: Allergies bisoprolol Allergy (Verified 12/13/17 14:22) Unknown levofloxacin [From Levaquin] Allergy (Verified 12/13/17 14:22) Unknown meloxicam Allergy (Verified 12/13/17 14:22) Unknown Sulfa (Sulfonamide Antibiotics) Allergy (Verified 12/13/17 14:22) Unknown CODEINE COUGH SYRUP Adverse Reaction (Uncoded 12/13/17 14:22) Other BP ELEVATION. PT STATES ABLE TO TAKE PAIN MEDS WITH CODEINE WITHOUT TROUBLES Medications to take at Discharge Atenolol [Tenormin (beta varun)] 25 mg PO QHS 05/10/14 Clonidine HCl [Catapres] 0.1 mg PO TID 05/10/14 Alendronate Sodium [Fosamax] 70 mg PO QWEEK 02/28/15 Cyanocobalamin [Vitamin B12] 1,000 mcg PO DAILY@0800 02/28/15 Gabapentin [Neurontin] 600 mg PO TID 02/28/15 Losartan Potassium [Cozaar] 100 mg PO DAILY 02/28/15 Multivitamins,Ther W-Minerals [Multivitamin With Minerals] 1 tab PO DAILY 02/28/15 Omeprazole [Prilosec] 20 mg PO BID 02/28/15 hydrALAZINE [Apresoline] 25 mg PO TID 02/28/15 furosemide 20 mg tablet 20 mg PO PRN PRN 07/04/17 antiarthritic combination no.2 900 mg tablet 1 mg PO BID 10/09/17 biotin 10,000 mcg capsule 10,000 mcg PO QDAY cap 11/06/17 estradiol 0.01% (0.1 mg/gram) vaginal cream 1 g VAGINAL .COMPLEX PRN g 11/06/17 Oxybutynin Chloride [Ditropan Xl] 5 mg PO QDAY 12/13/17 Acetaminophen [Tylenol] 1,000 mg PO Q8 #60 tab 12/25/17 Aspirin 325 mg PO BIDCM #28 tab 12/25/17 Oxycodone [Oxyir] 5 - 10 mg PO Q4H PRN PRN 7 Days #56 tablet 12/25/17 Senna/Docusate Sodium [Senokot-S] 2 tab PO BID #30 tab 12/25/17 The following prescriptions were given: Oxycodone [Oxyir] 5 - 10 mg PO Q4H PRN PRN 7 Days #56 tablet PRN Reason: Mod-Severe Pain (4-1010) Acetaminophen [Tylenol] 1,000 mg PO Q8 #60 tab Aspirin 325 mg PO BIDCM #28 tab Senna/Docusate Sodium [Senokot-S] 2 tab PO BID #30 tab Primary Care Physician: Jason Chinchilla MD [Primary Care Provider] -
--- NOTE | 2017-12-25 10:45 | CASEMGMT ---
HOMER GOODWIN Face to Face with patient for initial transition planning/care coordination assessment. HOMER GOODWIN introduced self and role at [facility]. Patient sitting in chair, alert and oriented. Patient willing to participate in assessment and is able to answer all questions appropriately. Care providers, pharmacy, and demographics verified. Patient lives with in 1 story home with 3 steps to enter home. Patient states she has a shower chair, raised toilet seat, cane, walker, grab bars, hip kit, and BiPap at home. Patient wishes to discharge home and is wanting outpatient therapy setup for at [facility]. HOMER GOODWIN called [facility] and requested order be faxed to [facility] for outpatient therapy. Patient states she has no further needs or concerns at this time. CM to follow for discharge planning needs that may arise. Disposition Plan: Patient to discharge home with outpatient therapy, family support, and follow-up plans in place.
[2017-12-25] MEDS: hydrALAZINE 25 MG Tablet PO ×2 (14:15→21:06)
[2017-12-25] MEDS: cloNIDine HCl 0.2 MG Tablet 0.1 MG PO ×2 (14:15→21:07)
--- NOTE | 2017-12-25 17:50 | NURSING ---
PT WITH HIGH BP SINCE 1410. BP MEDS GIVEN AT THIS TIME AND BP RECHECKED AND REMAINS HIGH. MOST RECENT BP 195/91 AROUND 1715. BABAR FRAZIER PAGE AND NOTIFIED. SHE ORDERED HOSPITALIST CONSULT FOR BP MANAGEMENT. ADMITTING HOSPITALIST PAGER PAGED DIRECTOR OF SOCIAL WORK. OZIEL CALLED BACK AROUND 1730. NOTIFIED OF CONSULT. HE WANTED TO KNOW IF IT WAS ROUTINE OR URGENT CONSULT. THIS RN UNSURE SINCE THIS WAS NOT CLARIFIED BY AIME FRAZIER. OZIEL STATED IF THIS IS ROUTINE THEN I HAVE 24 HOURS TO SEE PTS. IF IT IS URGENT THEN THE DOCTOR ORDERING THE CONSULT HAS TO CALL THE CONSULT DIRECTLY TO ANOTHER PHYSICIAN. AIME FRAZIER UPDATED AND WANTS TO KEEP CONSULT ROUTINE AND WILL UPDATE DR. WISE. IF FRANYD WANTS TO CHANGE THE CONSULT TO URGENT, HIMSELF OR AIME WILL CALL OZIEL. TELESALES PROFESSIONAL AND PATIENT UPDATED.
[2017-12-25] MEDS: hydrALAZINE 20 MG/ML Vial 10 MG IV (19:04)
[2017-12-25] MEDS: 0.9% NaCl Peripheral Flush Adult/Peds IV (19:04)
--- NOTE | 2017-12-25 19:05 | PCM.PROGNOTE ---
Subjective: Chief complaint: Consultation for elevated blood pressure postoperatively without a call from the admitting physician. Patient seen and examined. She denies any significant complaints except left knee pain. Denied headache or blurry vision. Denied chest pain shortness of breath. Denied abdominal pain, nausea vomiting. She did mention that usually, her blood pressures under control. According to nursing staff, her morning dose of clonidine was held because of bradycardia. At this time, blood pressure is 192/102, heart rate is 60. - Physical Exam General: Alert, Oriented x3, Cooperative, No apparent distress HEENT: Atraumatic, PERRLA, EOMI, Normocephalic Oral: Moist Mucosa, No Gingival or Mucosal Lesions/ Ulcerations Neck: Supple, No JVD, Negative Carotid Bruits, Trachea Midline, Thyroid Normal Size and Texture Lungs: Clear to auscultation, Normal air movement, No rhonchi, No wheeze, No rales Cardiovascular: Regular rate, Regular Rhythm, Normal S1, Normal S2, No murmurs Abdomen: Bowel Sounds Present, Soft, Non Tender, Non-Distended, No Hepato-splenomegaly Extremities: No clubbing, No cyanosis, No edema Skin: No rashes, No breakdown Lymphatic: No Cervical, Supraclavicular, or Inguinal Adenopathy Neurological: Cranial nerves II-XII grossly intact, Motor Exam 5/5 strength throughout Psych/Mental Status: Normal Affect, Appropriate, Alert and oriented to time, place, person, mood and affect Vital Signs Temp Pulse Resp BP Pulse Ox 97.6 F L 60 18 195/91 H 92 12/25/17 14:10 12/25/17 19:04 12/25/17 16:22 12/25/17 17:17 12/25/17 16:22 Oxygen Flow Rate (L/min) 3 Oxygen Delivery Method Room Air Weight: 153 lb 10.595 oz Body Mass Index (BMI) 26.4 Intake and Output for Last 24 Hours 12/23/17 12/24/17 12/25/17 23:59 23:59 23:59 Intake Total 3529 / 3529 840 / 840 Output Total 1500 / 1500 300 / 300 Balance 2028 / 2028 540 / 540 Laboratory Tests Past 24 Hrs 12/25/17 12/25/17 05:30 05:30 WBC 9.2 RBC 4.00 L Hgb 12.0 Hct 37.4 MCV 93.5 MCH 30.0 MCHC 32.1 RDW 14.4 RDW Differential 49.4 H Plt Count 234 MPV 8.9 Sodium 140 Potassium 4.1 Chloride 108 H Carbon Dioxide 24.0 Anion Gap 8 BUN 22 H Creatinine 1.13 H Estim Creat Clear Calc 34.86 Est GFR (MDRD) Af Amer 60 Est GFR (MDRD) Non-Af 49 L BUN/Creatinine Ratio 19.5 Glucose 107 H Calcium 8.4 L Medical Necessity - Tobacco Use Smoking Status: Former smoker Assessment/Plan This is a 77 years old female patient admitted for elective total knee replacement for osteoarthritis and I am seeing this patient in consultation postoperatively for elevated blood pressure. #1 uncontrolled hypertension: At this time, blood pressure is more than 190 systolic. She is asymptomatic. Denied headache chest pain shortness of breath, denied focal deficit. According to nursing staff, morning dose of clonidine was held and this is likely causing rebound hypertension. Also, left knee pain may be contributing to her elevated blood pressure. She is back on her home doses of clonidine as well as atenolol, hydralazine and losartan. Plan: We will give 1 dose of IV hydralazine 10 mg ?1, start IV hydralazine 10 mg every 4 hours as needed for systolic more than 160. #2 bradycardia: This is chronic, heart rate has been in the 50s. I think we can continue atenolol and clonidine unless heart rate dropped below 40 bpm or patient starts to have symptoms. #3 peripheral vascular disease: Continue aspirin. 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 #5 DVT prophylaxis: Continue full dose aspirin twice daily. This note was generated with [employer] dictation software. It may contain incorrect words, spelling, and punctuation that were not noted in checking the note before signing. Code Visit Inpatient E&M: 24183 Subs Hosp L2
[2017-12-25] MEDS: Atenolol 25 MG Tablet PO (21:07)
[2017-12-26] VITALS (7 sets, daily range): BP systolic 124–151; BP diastolic 72–84; PULSE 48–58; RESP 18; TEMP 36.4–36.5; O2SAT 90–95
[2017-12-26] MEDS: hydrALAZINE 25 MG Tablet PO ×2 (05:51→13:44)
[2017-12-26] MEDS: cloNIDine HCl 0.2 MG Tablet 0.1 MG PO ×2 (05:51→13:44)
[2017-12-26] MEDS: oxyCODONE 5 MG Tablet PO ×2 (05:51→12:27)
[2017-12-26] MEDS: Acetaminophen 500 MG Tablet 1000 MG PO ×2 (05:51→13:45)
[2017-12-26 06:14] LABS: Hematocrit 38.8 % (37-47); Hemoglobin 12.4 g/dl (12.0-15.0); Mean Corpuscular Hgb 30.4 pg (27.0-32.0); Mean Corpuscular Volume 95.1 fL (81-99); Mean Platelet Vol. 8.9 fl (6.2-12.0); Platelet Count 258 K/mm3 (150-450); RBC Distribution Width CV 14.6 % (11.6-14.6); RBC Distribution Width SD 49.2 fl (35.1-43.9); Red Blood Count 4.08 M/mm3 (4.2-5.4); White Blood Count 7.1 K/mm3 (4.4-11.0)
[2017-12-26 06:56] LABS: Scan Indicated on CBC? Y/N NO
--- NOTE | 2017-12-26 07:49 | PCM.PN.ORT ---
Subjective: Patient sitting at bedside eating breakfast. Patient has no complaints. Denies chest pain, shortness breath, calf pain, nausea vomiting. Patient states she is ready for discharge home. Objective: Dressings clean dry intact, vital signs labs within normal limits. Patient is afebrile neurovascular intact. Negative signs and symptoms of DVT. - Physical Exam General: Alert, Oriented x3, Cooperative HEENT: PERRLA Oral: Moist Mucosa Neurological: Cranial nerves II-XII grossly intact Psych/Mental Status: Normal Affect, Alert and oriented to time, place, person, mood and affect Vital Signs Temp Pulse Resp BP Pulse Ox 97.7 F L 57 L 18 126/84 H 94 12/26/17 05:48 12/26/17 05:51 12/26/17 05:48 12/26/17 05:48 12/26/17 05:48 Oxygen Flow Rate (L/min) 3 Oxygen Delivery Method CPAP Weight: 69.7 kg Body Mass Index (BMI) 26.4 Intake and Output for Last 24 Hours 12/24/17 12/25/17 12/26/17 23:59 23:59 23:59 Intake Total 3529 / 3529 1540 / 1540 240 / 240 Output Total 1500 / 1500 1500 / 1500 Balance 2028 / 2028 40 / 40 240 / 240 Laboratory Tests Past 24 Hrs 12/26/17 05:50 WBC 7.1 RBC 4.08 L Hgb 12.4 Hct 38.8 MCV 95.1 MCH 30.4 MCHC 32.0 RDW 14.6 RDW Differential 49.2 H Plt Count 258 MPV 8.9 Medical Necessity - Tobacco Use Smoking Status: Former smoker Assessment/Plan Status post left total knee Postop uncontrolled hypertension\well controlled\resolved Plan 1. Continue all pain medications as prescribed 2. Aspirin 325 mg 1 p.o. every 12 hours ?30 days for postop DVT prophylaxis 3. Continue with physical therapy outpatient 4. Follow-up as scheduled 5. Discharge home today
[2017-12-26] MEDS: Losartan Potassium 100 MG Tablet PO (08:03)
[2017-12-26] MEDS: Pantoprazole Sodium 20 MG Tablet PO (08:03)
[2017-12-26] MEDS: Famotidine 20 MG Tablet PO (08:03)
[2017-12-26] MEDS: Tolterodine Tartrate 2 MG CAP.SA PO (08:03)
[2017-12-26] MEDS: Multivitamins,Ther W-Minerals Tablet 1 TABLET PO (08:03)
[2017-12-26] MEDS: Aspirin 325 MG Tablet PO (08:03)
[2017-12-26] MEDS: Gabapentin 600 MG Tablet PO ×2 (08:03→12:27)
[2017-12-26] MEDS: Celecoxib 200 MG Capsule PO (08:03)
--- NOTE | 2017-12-26 13:16 | PCA ---
pt in therapy
== END 2017-12-26 13:51 | disposition home or self-care (01) | DRG 470 ==
PROVIDERS: Admitting Provider Orthopaedic Surgery; Family Provider Family Medicine; PCP Family Medicine; Visit Provider Internal Medicine
PROC: 0SRD0J9 Replacement of Left Knee Joint with Synthetic Substitute, Cemented, Open Approach (ICD-10-PCS; CPT 27447; principal; 2017-12-24 08:50)
DX: M17.12 Unilateral primary osteoarthritis, left knee (principal); C83.30 Diffuse large B-cell lymphoma, unspecified site; R00.1 Bradycardia, unspecified; I73.9 Peripheral vascular disease, unspecified; I10 Essential (primary) hypertension; M81.0 Age-related osteoporosis without current pathological fracture; K21.9 Gastro-esophageal reflux disease without esophagitis; G47.30 Sleep apnea, unspecified; Z87.891 Personal history of nicotine dependence; Z86.718 Personal history of other venous thrombosis and embolism; Z92.21 Personal history of antineoplastic chemotherapy; Z98.1 Arthrodesis status
CPT/HCPCS: 36415; 73560; 80048; 85027; 87081; 93005; 97116; 97162; 97165; 97530; 97535; 97802; C1776; J7120; A4216; J2405

== ENCOUNTER → 2018-03-18 08:09 | Outpatient (CLI) | payer MEDICARE, OTHER, SELFPAY ==
[2018-03-18 08:51] LABS: Absolute Lymphocyte Count 1.62 X10^3/ul (0.83-4.51); Absolute Neutrophil Count 3.2 X10^3/uL (2.0-7.7); Basophil# 0.04 X10^3/uL; Basophil% 0.7 % (0-1); Eosinophil# 0.27 X10^3/uL; Eosinophils% 4.7 % (0-5); Hematocrit 42.5 % (37-47); Hemoglobin 13.3 g/dl (12.0-15.0); Lymphocyte # 1.62 X10^3/ul (4.0); Lymphocyte % 28.2 % (19-41); Mean Corp Hgb Conc 31.3 g/gl (32-36); Mean Corpuscular Hgb 29.4 pg (27.0-32.0); Mean Platelet Vol. 8.9 fl (6.2-12.0); Monocyte# 0.64 X10^3/uL; Monocyte% 11.1 % (0-10); Neutrophil # 3.15 X10^3/uL (2.7-7.7); Platelet Count 260 K/mm3 (150-450); RBC Distribution Width CV 15.2 % (11.6-14.6); RBC Distribution Width SD 51.8 fl (35.1-43.9); Red Blood Count 4.52 M/mm3 (4.2-5.4); White Blood Count 5.7 K/mm3 (4.4-11.0)
[2018-03-18 08:54] LABS: POSITIVE COUNT NO; POSITIVE DIFFERENTIAL NO; POSITIVE MORPHOLOGY NO
[2018-03-18 09:24] LABS: Anion Gap 9 (5-15); BUN 24 mg/dL (7-18); BUN/Creat Ratio 23.8 RATIO (10-20); Chloride 107 mmol/L (98-107); Cholesterol 225 mg/dL (200); Creatinine, Serum 1.01 mg/dL (0.55-1.02); EST Glomerular Filtration Rate 56 mL/min (>60); Est Glom Filt Rate - Afr Amer 68 mL/min (>60); Ferritin 14 ng/mL (8-252); Glucose 91 mg/dL (74-106); High Density Lipoprotein 58 mg/dL; Iron 66 ug/dL (50-170); Sodium Level 143 mmol/L (136-145); Triglycerides 175 mg/dL; Very Low Density Lipoprotein 35 mg/dL (5-40)
[2018-03-19 08:41] LABS: Vitamin D,25 Hydroxy 28.9 ng/mL (29.95-100.01)
== END ==
PROVIDERS: Family Provider Family Medicine; PCP Family Medicine; Visit Provider Family Medicine
DX: I10 Essential (primary) hypertension (principal); E78.5 Hyperlipidemia, unspecified; D50.9 Iron deficiency anemia, unspecified; M81.0 Age-related osteoporosis without current pathological fracture
CPT/HCPCS: 36415; 80048; 80061; 82306; 82728; 83540; 85025

== ENCOUNTER 2018-04-07 19:00 | Emergency (ER) | payer MEDICARE, OTHER, SELFPAY ==
[2018-04-07 19:02] VITALS: BP 164/80; PULSE 58; RESP 19; TEMP 36.1; O2SAT 99; BMI 25.2
--- NOTE | 2018-04-07 20:20 | RAD_ITS ---
STUDY: X-RAY - LEFT KNEE REASON FOR EXAM: Female, 78 years old. Trauma, left knee pain TECHNIQUE: 2 view(s) of the knee. COMPARISON: Previous study of 12/24/2017 FINDINGS: Status post total left knee replacement changes are seen with implants appearing in good position. There is no evidence of implant loosening or new associated fracture or dislocation. RAD/Knee 1 or 2 Views IMPRESSION: Status post total left knee replacement changes seen with implants appearing in good position. There is no evidence of implant loosening or new associated fracture or dislocation. Electronically Signed: Anson Milian MD at 20:42 EDT , Service support ,
--- NOTE | 2018-04-07 20:20 | RAD_ITS ---
STUDY: X-RAY - RIGHT KNEE REASON FOR EXAM: Female, 78 years old. Trauma TECHNIQUE: 2 view(s) of the knee. COMPARISON: Prior study of 03/15/2015 FINDINGS: Status post total right knee replacement changes are seen with implants appearing in good position. There is no evidence of implant loosening or no associated fracture or dislocation. RAD/Knee 1 or 2 Views IMPRESSION: Status post total right knee replacement changes seen with implants appearing in good position. There is no evidence of implant loosening or no associated fracture or dislocation. Electronically Signed: Anson Milian MD at 20:59 EDT , Service support ,
--- NOTE | 2018-04-07 20:30 | RAD_ITS ---
STUDY: X-RAY CHEST REASON FOR EXAM: Female, 78 years old. Trauma, right-sided rib pain TECHNIQUE: PA and lateral views of the chest. COMPARISON: Prior study of 07/24/2016 FINDINGS: The lungs are clear and expanded. There is no demonstrated pleural abnormality. There is mild cardiac enlargement. Normal mediastinum and jonas. Normal visualized pulmonary arteries. Normal visualized aortic arch and descending thoracic aorta. Orthopedic hardware is seen in the visualized lower thoracic/upper lumbar region. There are several old bilateral healed rib fractures. No acute rib fracture is seen. There is no demonstrated abnormality of the visualized soft tissue structures of the upper abdomen. RAD/Chest PA and Lateral IMPRESSION: 1. Mild cardiomegaly. 2. Several old bilateral rib fractures are noted. 3. Orthopedic hardware seen in the visualized thoracolumbar spinal region. 4. There is no evidence of acute rib fracture, edema or pneumothorax, or pulmonary contusion. If an acute rib injury is clinically suspected, specific rib views are recommended for further evaluation. Electronically Signed: Anson Milian MD at 20:52 EDT , Service support ,
--- NOTE | 2018-04-07 21:44 | ED.VISSUMM ---
- ER Visit Summary Date of Service: 04/07/18 Chief Complaint: Fall History of Present Illness: The patient is a 78 F who presents after a fall that occurred today. Patient states she tripped and fell. Patient states she landed on her knees and also hit her right ribs. Patient states her pain is aching. Patient states she was able to stand and ambulate after the fall. Patient denies any shortness of breath. Patient denies any nausea or vomiting. Patient denies any paresthesias or weakness. Patient denies any other injuries. Patient denies any head injury or loss of consciousness. Physical Examination: Vital signs are stable. Patient is afebrile. Patient is in no acute distress. Oral mucosa is pink and moist. Neck is supple. Trachea is midline. There is no JVD noted. Heart was regular rate and rhythm. Lungs are clear and equal bilateral. There is good respiratory effort noted. There is tenderness over the right chest wall. There is no bony crepitance or step-off noted. Cranial nerves II through XII are intact. There are no focal motor or sensory deficits noted. Musculoskeletal exam reveals tenderness over the knees bilaterally. There are no effusions noted. There is no deformity noted. There is good range of motion of the knees bilaterally. The remaining physical exam is within normal limits. Test Results: X-rays of the knees bilaterally were obtained and did not show any acute fracture. PA and lateral chest x-ray was obtained. There is no acute rib fracture or pneumothorax. Emergency Department Course and Treatment: Patient was instructed to take Tylenol or ibuprofen as needed for any pain. Patient was instructed to continue using ice to the areas. Patient was instructed to follow-up with her primary care physician in 7-10 days. Patient understood and was agreeable with the plan. All questions were answered. Disposition: Discharged home Impression: Bilateral knee contusion, thoracic contusion This note was generated with [employer] dictation software. It may contain incorrect words, spelling, and punctuation that were not noted in review of the chart prior to signing ED Disposition - Plan for ED Patient: Disposition: Home or Assisted Living Chief Complaint: Fall Diagnosis: Contusion of left knee, initial encounter, Contusion of right knee, initial encounter, Contusion of thoracic wall Instructions: ED Contusion Lower Ext, ED Contusion Chest Wall, ED Mechanical Fall Referrals: Jason Chinchilla MD [Primary Care Provider] -
--- NOTE | 2018-04-07 21:47 | ED.DCSUM_ITS ---
- ER Visit Summary Date of Service: 04/07/18 Chief Complaint: Fall History of Present Illness: The patient is a 78 F who presents after a fall that occurred today. Patient states she tripped and fell. Patient states she landed on her knees and also hit her right ribs. Patient states her pain is aching. Patient states she was able to stand and ambulate after the fall. Patient denies any shortness of breath. Patient denies any nausea or vomiting. Patient denies any paresthesias or weakness. Patient denies any other injuries. Patient denies any head injury or loss of consciousness. Physical Examination: Vital signs are stable. Patient is afebrile. Patient is in no acute distress. Oral mucosa is pink and moist. Neck is supple. Trachea is midline. There is no JVD noted. Heart was regular rate and rhythm. Lungs are clear and equal bilateral. There is good respiratory effort noted. There is tenderness over the right chest wall. There is no bony crepitance or step- off noted. Cranial nerves II through XII are intact. There are no focal motor or sensory deficits noted. Musculoskeletal exam reveals tenderness over the knees bilaterally. There are no effusions noted. There is no deformity noted. There is good range of motion of the knees bilaterally. The remaining physical exam is within normal limits. Test Results: X-rays of the knees bilaterally were obtained and did not show any acute fracture. PA and lateral chest x-ray was obtained. There is no acute rib fracture or pneumothorax. Emergency Department Course and Treatment: Patient was instructed to take Tylenol or ibuprofen as needed for any pain. Patient was instructed to continue using ice to the areas. Patient was instructed to follow-up with her primary care physician in 7-10 days. Patient understood and was agreeable with the plan. All questions were answered. Disposition: Discharged home Impression: Bilateral knee contusion, thoracic contusion This note was generated with [employer] dictation software. It may contain incorrect words, spelling, and punctuation that were not noted in review of the chart prior to signing ED Disposition - Plan for ED Patient: Disposition: Home or Assisted Living Chief Complaint: Fall Diagnosis: Contusion of left knee, initial encounter, Contusion of right knee, initial encounter, Contusion of thoracic wall Instructions: ED Contusion Lower Ext, ED Contusion Chest Wall, ED Mechanical Fall Referrals: Jason Chinchilla MD [Primary Care Provider] -
== END 2018-04-07 21:59 | disposition home or self-care (01) ==
PROVIDERS: Emergency Provider Emergency Medicine; Family Provider Family Medicine; PCP Family Medicine
DX: S80.02XA Contusion of left knee, initial encounter (principal); S80.01XA Contusion of right knee, initial encounter; S20.221A Contusion of right back wall of thorax, initial encounter; W01.0XXA Fall on same level from slipping, tripping and stumbling without subsequent striking against object, initial encounter; Y93.89 Activity, other specified; Y92.89 Other specified places as the place of occurrence of the external cause; Y99.8 Other external cause status
CPT/HCPCS: 71046; 73560; 99282

== ENCOUNTER 2018-04-09 10:00 | Outpatient (RCR) | payer MEDICARE, OTHER, SELFPAY ==
--- NOTE | 2018-01-08 14:15 | HP.PTEVAL_ITS ---
Patient's Visit Information DANAE KYLE is a 77 year old F referred to Physical Therapy by Eunice Bowie with a diagnosis of S/P LEFT TKR 12/24/17. Date of Evaluation: 01/08/18 Physical Therapist: Mirian Baeza - Visit Plan Frequency: 2-3x /Week Duration: 4-6 Weeks Plan: *HISTORY OF MULTIPLE BACK SURGERIES*. CHECK INCISION. POSTURE CORRECTION /STRENGTHENING, INSTRUCTION IN APPROPRIATE BODY MECHANICS AND ACTIVITY MODIFICATIONS. GAIT TRAINING. CORE STRENGTHENING. JUAN CARLOS LLE ROM, STRETCHING AND STRENGTHENING. VASO. CP. HEP INSTRUCTION. - Subjective Subjective: PATIENT REPORTS HAVING HER KNEE SURGERY 12/24/17. SHE REPORTS SHE HAS HAD A LOT OF PROBLEMS WITH SWELLING. STATES SHE HAS BEEN DOING HER HEP WITH DIFFICULTY TWICE A DAY. DR. SILVESTRE DOES NOT SEEM TO BE CONCERNED ABOUT THE SWELLING PER PATIENT REPORT. PATIENT REPORTS SHE HAS A SPOT AT THE TOP OF HER INCISION THAT HAS BEEN VERY SORE SINCE SHE TWISTED ON HER KNEE SATURDAY NIGHT. SHE REPORTS SHE HAS NOT HAD ANY FEVER OR DRAINAGE FROM HER INCISION. LEFT KNEE PAIN RANGING 5/10 TO 8/10. SHE REPORTS DECREASED PAIN SITTING IN THE RECLINER AND PUTTING HER LEG UP AND THE PAIN MEDICINE HELPS. INCREASED PAIN WITH TWISTING AND WALKING AROUND A LOT AND DOING HER EX'S. PATIENT STATES MY BACK STILL FEELS GREAT. PMH: HTN, MOST RECENT BACK SURGERY WAS APR 2017. LEFT THR 2013. RIGHT TKR 2014. LYMPHOMA 2004. SOCIAL: LIVING WITH IN A HOME WITH EVERYTHING SHE NEEDS ON ONE FLOOR AND 3 STEPS INTO THE HOUSE. STATES SHE IS DOING FINE AT HOME WITH THE HELP OF HER . - Objective THIS PATIENT AMBULATES INDEP'LY INTO PT WITH A FWW SET JUST A LITTLE BIT TOO LOW FOR HER. SHE WALKS WITH DECREASED WEIGHT BEARING TIME ON THE LLE AND IS DEPENDENT ON THE WALKER FOR BALANCE. THIS PT RAISED HER WALKER ONE NOTCH AND PATIENT REPORTED A HUGE IMPROVEMENT WITH THE CHANGE. SHE DEMONSTRATED IMPROVED POSTURE WITH THE CHANGE. SHE REQUIES UE ASSIST TO TRANSFER FROM SIT TO STAND SAFELY. INDEP TRANSFER SIT TO SUPINE AND REVERSE BUT PATIENT HAS TO ASSIST THE LLE A LITTLE BIT WITH HER UE TO GET IT ON THE TABLE. LEFT KNEE ROM IN SUPINE WITH A HEEL SLIDE IS -9 DEG EXT TO 63 DEG FLEX. PASSIVE LEFT KNEE FLEXION IN SITTING = 68 DEG. SHE REALLY STRUGGLES TO DO A HEEL SLIDE. LEFT KNEE GIRTH MEASUREMENTS: 17.25 INCHES MID PATELLA, 14.25 AT DISTAL INCISION AND 17 INCHES AT PROXIMAL INCISION. LLE LIGHT TOUCH SENSATION APPEARS TO BE INTACT WITH TESTING BUT NOT TESTED DIRECTLY OVER INCISION. STRENGTH: RIGHT LE STRENGTH IS WFL. LLE STRENGTH: HIP 3-/5, KNEE EXT 2+/5, KNEE FLEX 2/5, ANKLE DORSIFLEX 4/5 , EHL 5/5. OTHER: NO OBVIOUS SIGNS OF INFECTION. LEFT KNEE IS WARM BUT NOT HOT TO THE TOUCH. INCISION COVERED. TREATMENT: PATIENT WAS SEEN TODAY FOR HEP PROGRESSION AND CHECK IN ADDITION TO EVAL. SHE DEMONSTRATES FAIR TECHNIQUE WITH AP'S, HS'S, QS'S, SLR'S, SEATED LAE'S AND SEATED KNEE FLEXION. CUEING NEEDED TO HOLD QUAD SET LONGER (5S), BEND OPPOSITE KNEE DURING SLR AND KEEP KNEE STRAIGHT POSSIBLE WITH SLR. INSTRUCTED PATIENT TO INCREASE HEP FROM 10 REPS 2 TIMES A DAY TO 2 SETS OF 10 3 TIMES A DAY TOLERATED. UP TO 74 DEG RIGHT KNEE FLEXION BY THE END OF THIS SESSION. - Goals Goal 1:: INDEP AND SAFE GAIT WITH LEAST ASSISTIVE DEVICE AND DEVIATIONS ON LEVEL SURFACES AND UP AND DOWN STEPS. Goal Time Frame: 4-6 Weeks Goal 2:: DECREASE LLE EDEMA Goal Time Frame: 4-6 Weeks Goal 3:: IMPROVE LLE FUNCTIONAL ROM Goal Time Frame: 4-6 Weeks Goal 4:: IMPROVE LLE FUNCTIONAL STRENGTH Goal Time Frame: 4-6 Weeks Goal 5:: DECREASE C/O LEFT KNEE PAIN Goal 6:: PATIENT WILL BE INDEP WITH A HEP FOR CONTINUED IMPROVEMENT ONCE FORMAL PT CONCLUDES. Goal Time Frame: 4-6 Weeks - Rehabilitation Potential Rehabilitation Potential: Good - Anticipated Interventions Patient/Client Instruction: Educate patient on: Condition, Plan of Care, Risk Factors, Benefits of Fitness Program For the Purpose of:: To improve self management Therapeutic Exercise to Include: Strength training, Body mechanics, Postural training, Flexibilty training, Gait and locomotor training, In an aquatic setting, Passive ROM, Active ROM Comment: AQUATIC THERAPY WHEN OK'D BY SURGEON. For the Purpose of:: To decrease pain, To increase ROM, To improve muscle performance and motor function, To increase tolerance to activity/condition/ position, To improve performance and independence with ADL's, To improve ability of physical actions for home/community/work/leisure, To improve gait and locomotor functions Manual Therapy Techniques to Include: Passive ROM For the Purpose of:: To increase ROM Cryotherapy (ice pack, ice massage): Yes Vasopneumatic device: Yes For the Purpose of:: To decrease pain, To decrease swelling/inflammation Thank you for the opportunity to evaluate your patient. For Medicare and Medicare HMO plans, please review the plan of care and approve it. It will need to be FAXED BACK to us at [phone] for Medicare purposes. Please let me know if there are questions or concerns regarding this plan of care. Physician Signature: Date:
--- NOTE | 2018-02-10 12:22 | HP.PTREVAL ---
Eunice Bowie, It has been my pleasure to treat DANAE KYLE over the last 10 visits for S/P LEFT TKR 12/24/17. Please see the progress note below for an update on the physical therapy plan of care! Subjective: PATIENT REPORTS SHE IS DOING BETTER BUT SHE WANTS TO BE ABLE TO WALK WITHOUT A CANE OR WALKER. PATIENT REPORTS SHE WENT BACK TO THE SURGEONS OFFICE LAST SATURDAY AND EUNICE THINKS EVERYTHING LOOKS GREAT. GENIA BANDAGE RECOMMENDED FOR SWELLING. OK TO GET IN WATER NOW. OK TO DRIVE. PATIENT REPORTS SHE HAS USED [facility] IN THE PAST FOR A RIGHT SHOE LIFT (09/19) BUT STOPPED USING IT AFTER BACK SURGERY BECAUSE DIDN'T FEEL SHE NEEDED IT. STATES SHE THINKS SHE MIGHT NEED A SHOE LIFT AGAIN AND TOLD EUNICE. STATES SHE WAS DIAGNOSSED WITH LEFT HIP BURSITIS AND EUNICE TOLD HER TO CALL FOR AN INJECTION NEEDED. PATIENT REPORTS SHE HAS BEEN USING A WALKER SINCE 2012. SHE REPORTS SHE FELT OK USING THE CANE WITH US IN HERE BUT IS AFRAID TO USE IT ON HER OWN YET. LEFT THIGH, KNEE AND LEG PAIN UP TO 10 AT ITS WORST NOW. A COUPLE TIMES IT HAS BEEN HARD TO GET TO SLEEP - IT CAN GET REALLY ACHY. Objective/Function: THIS PATIENT AMBULATES INDEP'LY INTO PT WITH A FWW AND GOOD BALANCE WITH THE WALKER. SHE HAS A SIGNIFICANT LEG LENGTH DISCREPANCY WITH HER LEFT LEG LONGER THAN THE RIGHT CAUSING HER TO HAVE A LIMP. IN STANDING SHE FREQUENTLY BENDS THE LEFT KNEE TO ACCOMODATE THE LEG LENGTH DISCREPANCY AND I BROUGHT THIS TO HER ATTENTION WE ARE TRYING TO GET FULL LEFT KNEE EXTENSION. SHE WALKED AROUND THE TREATMENT ROOM SLOWLY FURNITURE WALKING WITH GOOD BALANCE. LEFT KNEE ROM = -2 DEG EXT TO 103 DEG FLEX IN SUPINE WITH A HEEL SLIDE. LLE STRENGTH: HIP 3+/5, KNEE EXT 3-/5, KNEE FLEX 3-/5, ANKLE DORSIFLEX 5/5. HER INCISION LOOKS GOOD. SWELLING CONTINUES AND I ENCOURAGED HER TO TAKE EUNICE'S ADVICE AND START GENIA WRAPPING HER LEG SHE HAS NOT STARTED TO DO THIS YET. PATIENT IS MAKING GOOD PROGRESS TOWARD ALL PT GOALS. PATIENT REPORTS DR. CAIN REFERRED HER TO [facility] IN THE PAST FOR HER SHOE LIFT AND I ENCOURAGED HER TO DISCUSS WHEN AND IF TO CORRECT AGAIN WITH HIM. Plan Plan: CONTINUE PT DECREASING TO 2X'S A WEEK ENCOURAGING COMPLIANCE WITH HEP AND CONTINUING TO PROGRESS TOLERATED. *HISTORY OF MULTIPLE BACK SURGERIES*. POSTURE CORRECTION/STRENGTHENING, INSTRUCTION IN APPROPRIATE BODY MECHANICS AND ACTIVITY MODIFICATIONS. GAIT TRAINING. CORE STRENGTHENING. JUAN CARLOS LLE ROM, STRETCHING AND STRENGTHENING. VASO. CP. HEP INSTRUCTION. PATIENT WAS AGREEABLE TO THIS POC. Goals Goal 1:: INDEP AND SAFE GAIT WITH LEAST ASSISTIVE DEVICE AND DEVIATIONS ON LEVEL SURFACES AND UP AND DOWN STEPS. Goal Time Frame: 4-6 Weeks Goal Progress: Progressing Goal 2:: DECREASE LLE EDEMA Goal Time Frame: 4-6 Weeks Goal Progress: Progressing Goal 3:: IMPROVE LLE FUNCTIONAL ROM Goal Time Frame: 4-6 Weeks Goal Progress: Progressing Goal 4:: IMPROVE LLE FUNCTIONAL STRENGTH Goal Time Frame: 4-6 Weeks Goal Progress: Progressing Goal 5:: DECREASE C/O LEFT KNEE PAIN Goal Progress: Progressing Goal 6:: PATIENT WILL BE INDEP WITH A HEP FOR CONTINUED IMPROVEMENT ONCE FORMAL PT CONCLUDES. Goal Time Frame: 4-6 Weeks Goal Progress: Progressing Anticipated Interventions Patient/Client Instruction: Educate patient on: Condition, Plan of Care, Risk Factors, Benefits of Fitness Program For the Purpose of:: To improve self management Therapeutic Exercise to Include: Strength training, Body mechanics, Postural training, Flexibilty training, Gait and locomotor training, In an aquatic setting, Passive ROM, Active ROM Comment: AQUATIC THERAPY WHEN OK'D BY SURGEON. For the Purpose of:: To decrease pain, To increase ROM, To improve muscle performance and motor function, To increase tolerance to activity/condition/position, To improve performance and independence with ADL's, To improve ability of physical actions for home/community/work/leisure, To improve gait and locomotor functions Manual Therapy Techniques to Include: Passive ROM For the Purpose of:: To increase ROM Cryotherapy (ice pack, ice massage): Yes Vasopneumatic device: Yes For the Purpose of:: To decrease pain, To decrease swelling/inflammation Please do not hesitate to contact me at [phone] by phone or if you have questions or concerns regarding this new plan of care! Sincerely, Mirian Baeza
--- NOTE | 2018-03-13 11:10 | HP.PTREVAL_ITS ---
Eunice Bowie, It has been my pleasure to treat DANAE KYLE over the last 16 visits for S/ P LEFT TKR 12/24/17. Please see the progress note below for an update on the physical therapy plan of care! Subjective: PATIENT REPORTS SHE IS GETTING MUCH BETTER. SHE REPORTS HER STABILITY, HER ABILITY TO BEND HER KNEE, BEING ABLE TO DO STEPS WITH LESS PAIN AND WALKING WITHOUT THE WALKER OR EVEN THE CANE IS GETTING BETTER. PATIENT REPORTS SHE DOESN'T HAVE ANY CONCERNS. SHE IS GOING TO GO TO [email or web address] IN [place] WITH A PRESCRIPTION FOR HEEL LIFT TODAY. PATIENT REPORTS THAT THIS IS THE MOST STABLE SHE HAS FELT SINCE ABOUT 2012. SHE REPORTS SHE ISN'T USING THE CANE OR THE WALKER IN THE HOUSE NOW EXCEPT WHEN SHE GETS UP AT NIGHT. F/U SCHEDULE WITH KNEE SURGEON NEXT MONTH. LEFT KNEE PAIN AT WORST NOW IS 5/10. THE PAIN IS USUALLY ZERO. PATIENT REPORTS COMPLIANCE WITH HEP NOW. 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 HAS NOT HAD LEG LENGTH CORRECTION FOR ABOUT A YEAR NOW. Objective/Function: THIS PATIENT AMBULATES INDEP'LY INTO PT WITH A STRAIGHT CANE WITHOUT MUCH DEPENDENCE ON IT AND GOOD BALANCE. SHE STILL HAS A SIGNIFICANT LEG LENGTH DISCREPANCY WITH HER LEFT LEG LONGER THAN THE RIGHT CAUSING HER TO HAVE A LIMP BUT THIS IS BEING ADDRESSED AT [facility] TODAY. IN STANDING SHE FREQUENTLY BENDS THE LEFT KNEE TO ACCOMODATE THE LEG LENGTH DISCREPANCY BUT SHE IS MORE AWARE OF THIS NOW AND CORRECTS ABLE. SHE WALKED AROUND THE TREATMENT ROOM WITHOUT HER CANE WITH GOOD POSTURE AND WITH GOOD BALANCE (NOT REACHING FOR EXTERNAL SUPPORT). LEFT KNEE ROM = FULL EXT TO 106 DEG FLEX IN SUPINE WITH A HEEL SLIDE. RIGHT KNEE FLEX MEASURES 109 DEG FLEX TODAY. LLE STRENGTH: HIP 4-/5, KNEE EXT 3/5, KNEE FLEX 4-/5 (IN AVAILABLE ROM) , ANKLE DORSIFLEX 5/5. HER INCISION LOOKS GOOD. SHE HAS MODERATE SWELLING IN HER LEFT KNEE BUT THE SWELLING IN HER LOWER LEG IS MUCH IMPROVED. PATIENT IS MAKING GOOD PROGRESS TOWARD ALL PT GOALS AND IS MORE INDEP WITH HER EX PROGRAM NOW. SHE WOULD BENEFIT FROM CONTINUED PT 1X/WK X 4 WEEKS FOR EX PROGRESSION NEEDED PER CURRENT POC WORKING TOWARD SAME GOALS AND ALSO SHE ADJUSTS TO NEWLY CORRECTED LEG LENGTH DISCREPENCY AGAIN. Plan Plan: DECREASE TO 1X/WEEK X 4 WEEKS. Indep Exercise log in protocol folder.* *. CONTINUE TO PROGRESS TOLERATED. *HISTORY OF MULTIPLE BACK SURGERIES*. POSTURE CORRECTION/STRENGTHENING, INSTRUCTION IN APPROPRIATE BODY MECHANICS AND ACTIVITY MODIFICATIONS. GAIT TRAINING. CORE STRENGTHENING. JUAN CARLOS LLE ROM, STRETCHING AND STRENGTHENING. CP. HEP INSTRUCTION. PATIENT WAS AGREEABLE TO THIS POC. Goals Goal 1:: INDEP AND SAFE GAIT WITH LEAST ASSISTIVE DEVICE AND DEVIATIONS ON LEVEL SURFACES AND UP AND DOWN STEPS. Goal Time Frame: 4-6 Weeks Goal Progress: Progressing Goal 2:: DECREASE LLE EDEMA Goal Time Frame: 4-6 Weeks Goal Progress: Progressing Goal 3:: IMPROVE LLE FUNCTIONAL ROM Goal Time Frame: 4-6 Weeks Goal Progress: Progressing Goal 4:: IMPROVE LLE FUNCTIONAL STRENGTH Goal Time Frame: 4-6 Weeks Goal Progress: Progressing Goal 5:: DECREASE C/O LEFT KNEE PAIN Goal Progress: Progressing Goal 6:: PATIENT WILL BE INDEP WITH A HEP FOR CONTINUED IMPROVEMENT ONCE FORMAL PT CONCLUDES. Goal Time Frame: 4-6 Weeks Goal Progress: Progressing Anticipated Interventions Patient/Client Instruction: Educate patient on: Condition, Plan of Care, Risk Factors, Benefits of Fitness Program For the Purpose of:: To improve self management Therapeutic Exercise to Include: Strength training, Body mechanics, Postural training, Flexibilty training, Gait and locomotor training, In an aquatic setting, Passive ROM, Active ROM Comment: AQUATIC THERAPY WHEN OK'D BY SURGEON. For the Purpose of:: To decrease pain, To increase ROM, To improve muscle performance and motor function, To increase tolerance to activity/condition/ position, To improve performance and independence with ADL's, To improve ability of physical actions for home/community/work/leisure, To improve gait and locomotor functions Manual Therapy Techniques to Include: Passive ROM For the Purpose of:: To increase ROM Cryotherapy (ice pack, ice massage): Yes Vasopneumatic device: Yes For the Purpose of:: To decrease pain, To decrease swelling/inflammation Please do not hesitate to contact me at [phone] by phone or Fax: if you have questions or concerns regarding this new plan of care! Sincerely, Mirian Baeza
--- NOTE | 2018-04-09 11:28 | HP.PTDCSUM ---
HP - PT D/C Summary It has been my pleasure to treat DANAE KYLE under orders from Eunice Bowie, for the diagnosis of S/P LEFT TKR 12/24/17 for a total of 20 visit(s). Discharge Date: 04/09/18 Please see the following information for a summary of their discharge status. - Subjective Subjective: RIGHT SHOULDER AND CHEST ARE REALLY SORE SINCE TAKING A FALL SATURDAY AT HOME. STATES SHE GOT TANGLED UP IN HER CANE - SHE REPORTS SHE WAS IN A HURRY AND WASN'T PAYING ATTENTION AND SHE THINKS SHE GOT THE CANE TOO CLOSE TO HER FOOT. SHE REPORTS THIS HAPPENED AFTER HER HIP SURGERY TOO. WENT TO THE ED. REPORTS NOTHING IS BROKEN. PATIENT REPORTS SHE FEELS BETTER WALKING WITH THE LIFT ON HER SHOE NOW. PATIENT REPORTS SHE WAS HAVING A LOT OF KNEE PAIN BEFORE HER KNEE REPLACEMENT AND SHE REALLY ISN'T HAVING ANY PAIN NOW. STEPS ARE GOING GOOD WITH ONE HAND RAIL AND HER KNEE FEELS A LOT MORE STABLE NOW THAN IT DID BEFORE SURGERY. PATIENT REPORTS SHE REPORTS SHE DOES NOT WANT TO USE A WALKER. SHE REPORTS SHE FEEL WITH THE CANE THAT ISN'T STURDY AND SHE IS GOING TO PUT IT AWAY AND USE THE OTHER ONE. - Pain LEFT KNEE Pain Intensity (Out of 10): 0 - Overall Improvement % Improvement: 88 - Objective Objective/Function: ALL GOALS MET. UPON EXAM TODAY, PATIENT ANDREW'S INDEP AND SAFE GAIT WITH STRAIGHT CANE. SHE IS ABLE TO SLS ON EACH LEG WITHOUT UE ASSIST X >20 SEC AND WITHOUT C/O PAIN. SHE IS ABLE TO INDEP'LY TRANSFER FROM SIT TO STAND WITHOUT UE ASSIST AND DEMO'S INDEP GAIT IN THE TREATMENT ROOM WITHOUT AD WITHOUT LOB. SHE HAS FULL LEFT KNEE EXTENSION ROM TO 110 DEG FLEX IN SUPINE WITH A HEEL SLIDE. RIGHT LE STRENGTH IS WFL. LLE STRENGTH: HIP 4/5, KNEE EXT 4-/5, KNEE FLEX 4/5 (WITH MMT AT 80 DEG FLEX), ANKLE DORSIFLEX 5/5. MILD LEFT KNEE AND LEG EDEMA. LEFS SCORE HAS IMPROVED FROM 49 TO 54. SHE IS INDEP WITH HOME AND GYM EX PROGRAMS (WRITTEN INSTRUCTION GIVEN). - Goals Goal 1:: INDEP AND SAFE GAIT WITH LEAST ASSISTIVE DEVICE AND DEVIATIONS ON LEVEL SURFACES AND UP AND DOWN STEPS. Goal Progress: Goal Met Goal 2:: DECREASE LLE EDEMA Goal Progress: Goal Met Goal 3:: IMPROVE LLE FUNCTIONAL ROM Goal Progress: Progressing Goal 4:: IMPROVE LLE FUNCTIONAL STRENGTH Goal Progress: Goal Met Goal 5:: DECREASE C/O LEFT KNEE PAIN Goal Progress: Goal Met Goal 6:: PATIENT WILL BE INDEP WITH A HEP FOR CONTINUED IMPROVEMENT ONCE FORMAL PT CONCLUDES. Goal Progress: Goal Met - Plan Plan: D/C TO INDEP EX. PATIENT AGREEABLE. - D/C Information If there are questions or concerns regarding this patient's physical therapy, please feel free to call me at [phone]. Thank you for the referral of this patient. Sincerely, Mirian Baeza
== END 2018-04-09 19:00 | disposition home or self-care (01) ==
LOC: PT 10:00
PROVIDERS: Family Provider Family Medicine; PCP Family Medicine; Visit Provider Physician Assistant
DX: M17.12 Unilateral primary osteoarthritis, left knee (principal)
CPT/HCPCS: 97110; 97162; 97164; 97530

== ENCOUNTER → 2018-04-29 13:43 | Outpatient (CLI) | payer MEDICARE, OTHER, SELFPAY ==
--- NOTE | 2018-04-29 13:45 | ECHOD_ITS ---
Reason For Study: DYSPNEA Procedure This was a 2D Doppler, Color Flow transthoracic echocardiogram. The exam was of adequate technical quality. Exam performed in department. Left Ventricle Normal LV size. Moderate concentric left ventricular hypertrophy. Left ventricular systolic function is normal. The estimated ejection fraction is 65 %. There is evidence of diastolic dysfunction. No regional wall motion abnormalities noted. Right Ventricle Normal RV size. Normal systolic function. Atria The left atrium is severely enlarged. The right atrium is mildly enlarged. No doppler evidence for ASD. Mitral Valve There is no mitral annular calcification. Mild focal mitral valve calcification of the anterior leaflet. The mitral papillary muscle appears thickened and/or calcified. Mild (1+) mitral valve insufficiency. Tricuspid Valve Normal tricuspid valve. Mild tricuspid valve insufficiency. Right ventricular systolic pressure estimated to be 53 mmHg. Aortic Valve Trisinus/trileaflet aortic valve. Mild focal aortic valve calcification. Aortic valve sclerosis / mild aortic valve stenosis. Pulmonic Valve The pulmonic valve is not well visualized. Mild (1+) pulmonic valve insufficiency. Great Vessels Normal sized aortic root. Pericardium/Pleural No pericardial effusion. MMode/2D Measurements & Calculations LVIDd: 4.2 cm IVSd: 1.4 cm LVOT diam: 2.0 cm LVIDs: 3.1 cm LVPWd: 1.6 cm LVOT area: 3.1 cm2 RVDd: 3.2 cm FS: 27.0 % Ao root diam: 3.6 cm LAV(MOD-bp): 106.9 ml LVAd ap4: 31.1 cm2 LA dimension: 4.2 cm LAV(MOD-bp) Indexed: 60.6 ml/m2 EDV(MOD-sp4): 100.0 ml LAV(MOD-sp2): 104.1 ml EDV(sp4-el): 102.4 ml LAV(MOD-sp4): 109.7 ml LVAs ap4: 17.4 cm2 ESV(MOD-sp4): 37.6 ml ESV(sp4-el): 37.3 ml EF(MOD-sp4): 62.5 % EF(sp4-el): 63.6 % SV(MOD-sp4): 62.5 ml SV(sp4-el): 65.1 ml LA A4 area: 30.7 cm2 RA A4 area: 19.9 cm2 Time Measurements MV dec time: 0.39 sec Doppler Measurements & Calculations MV E max tremaine: 63.5 cm/sec Lat Peak E' Tremaine: 4.5 cm/sec Med Peak E' Tremaine: 3.0 cm/sec MV A max tremaine: 110.7 cm/sec E/E' lat: 14.3 E/E' med: 20.9 MV E/A: 0.57 Ao V2 max: 172.4 cm/sec LV V1 max: 110.5 cm/sec PA V2 max: 92.2 cm/sec Ao max P.9 mmHg LV V1 max P.9 mmHg CAROLIN(V,D): 2.0 cm2 TR max tremaine: 351.3 cm/sec TR max P.6 mmHg Interpretation Summary Left ventricular systolic function is normal. The estimated ejection fraction is 65 %. Moderate concentric left ventricular hypertrophy. The left atrium is severely enlarged. The right atrium is mildly enlarged. Mild focal mitral valve calcification of the anterior leaflet. The mitral papillary muscle appears thickened and/or calcified. Mild (1+) mitral valve insufficiency. Mild tricuspid valve insufficiency. Aortic valve sclerosis / mild aortic valve stenosis. Mild (1+) pulmonic valve insufficiency. Right ventricular systolic pressure estimated to be 53 mmHg. There is evidence of diastolic dysfunction. Ordering Physician: Lars Jameson/Trent Rosa Referring Physician: LOGAN EDMOND Performed By: Rosanne Tenorio, CHERYCS, RVT
== END ==
PROVIDERS: Family Provider Family Medicine; PCP Family Medicine; Referring Provider Nurse Practitioner Family; Visit Provider Nurse Practitioner Family
DX: I34.0 Nonrheumatic mitral (valve) insufficiency (principal); I35.0 Nonrheumatic aortic (valve) stenosis; R06.09 Other forms of dyspnea
CPT/HCPCS: 93306

== ENCOUNTER → 2018-05-12 12:46 | Outpatient (CLI) | payer MEDICARE, OTHER, SELFPAY ==
[2018-05-14 04:10] LABS: Cytoplasmic Ab (C-ANCA) <1:20 titer (Neg:<1:20)
[2018-05-14 10:23] LABS: CCP IgG Antibodies 5 units (0-19); Perinuclear Ab (P-ANCA) <1:20 titer (Neg:<1:20)
[2018-05-14 10:30] LABS: ANTINUCLEAR ANTIBODIES DIRECT Negative (Negative)
== END ==
PROVIDERS: Family Provider Family Medicine; PCP Family Medicine; Referring Provider Nurse Practitioner Acute Care; Visit Provider Nurse Practitioner Acute Care
DX: I27.20 Pulmonary hypertension, unspecified (principal)
CPT/HCPCS: 36415; 86038; 86200; 86225; 86235; 86256; 86431

== ENCOUNTER → 2018-05-16 09:53 | Outpatient (CLI) | payer MEDICARE, OTHER, SELFPAY ==
--- NOTE | 2018-05-16 09:56 | US_ITS ---
STUDY: RENAL ULTRASOUND - COMPLETE REASON FOR EXAM: Female, 78 years old. Urinary retention and incontinence TECHNIQUE: Ultrasound evaluation of the kidneys was performed with real-time and static busby-scale imaging. COMPARISON: None. FINDINGS: RIGHT KIDNEY: Normal location of the right kidney, which is normal in size. The right kidney measures 9.0 x 4.6 x 3.9 cm. There is a normal cortex of the right kidney. The renal cortex measures 1.1 cm. There is no right renal mass or cyst. There are no right renal calculi. There is no right hydronephrosis. DISTAL RIGHT URETER: There is non-visualization of the distal right ureter. There is no demonstrated right ureterovesical junction calculus. There is no demonstrated right ureteral jet. LEFT KIDNEY: Normal location of the left kidney, which is normal in size. The left kidney measures 9.2 x 5.5 x 4.6 cm. There is a normal cortex of the left kidney. The renal cortex measures 1.2 cm. There is no left renal mass or cyst. There are no left renal calculi. There is no left hydronephrosis. Bilateral small hyperechoic foci are present in both kidneys without associated shadowing. These may be nonobstructing renal stones measuring up to 4 mm on the right. DISTAL LEFT URETER: There is non-visualization of the distal left ureter. There is no demonstrated left ureterovesical junction calculus. There is a visualized left ureteral jet. BLADDER: The distended urinary bladder has a volume of 538.16 ml. The empty urinary bladder has a volume of 272.1 ml. There is a normal wall thickness of the distended urinary bladder. There is no demonstrated mass within the urinary bladder. There are no demonstrated bladder calculi. US/Kidney and Bladder IMPRESSION: Small bilateral nonobstructing renal calculi cannot be excluded. No hydronephrosis. Large post void residual in the bladder. Electronically Signed: Sam Jade MD at 1:29 EDT Tel , Service support ,
== END ==
PROVIDERS: Family Provider Family Medicine; PCP Family Medicine; Referring Provider Urology; Visit Provider Urology
DX: N39.41 Urge incontinence (principal); R33.9 Retention of urine, unspecified
CPT/HCPCS: 76770

== ENCOUNTER → 2018-05-22 10:38 | Outpatient (CLI) | payer MEDICARE, OTHER, SELFPAY ==
[2018-05-22 11:21] VITALS: PULSE 50; PULSE 51; PULSE 73; PULSE 74; PULSE 75; PULSE 77; O2SAT 90; O2SAT 91; O2SAT 94; O2SAT 96
--- NOTE | 2018-05-22 13:05 | PCM.PSN.6M ---
PSN 6 Minute Walk Test - 6 Minute Walk Test 6 Minute Walk Test: 6 Minute Walk Test PSN:6-Minute Walk Test Start: 05/22/18 11:21 Freq: Status: Active Protocol: RESP.6MINW Document 05/22/18 11:21 [facility] (Rec: 05/22/18 11:23 [facility] [id number]) 6 Minute Walk Test Date Performed 05/22/18 Time Performed 11:01 Height 5 ft 5 in Weight: 153 lb Weight in Pounds 153.[address]: Harriet Sanchez Assistive device used: Cane Pre-test Oxygen Delivery Method Room Air Pulse Ox (%) 96 Pulse Rate (60-100 beats/min) 50 L Dyspnea Tae Scale (0-10) 0 Exertion Tae Scale (6-20) 11 1st minute Oxygen Delivery Method Room Air Pulse Ox (%) 94 Pulse Rate (60-100 beats/min) 74 2nd minute Oxygen Delivery Method Room Air Pulse Ox (%) 91 Pulse Rate (60-100 beats/min) 77 3rd minute Oxygen Delivery Method Room Air Pulse Ox (%) 90 Pulse Rate (60-100 beats/min) 75 4th minute Oxygen Delivery Method Room Air Pulse Ox (%) 90 Pulse Rate (60-100 beats/min) 73 5th minute Oxygen Delivery Method Room Air Pulse Ox (%) 90 Pulse Rate (60-100 beats/min) 75 6th minute Oxygen Delivery Method Room Air Pulse Ox (%) 91 Pulse Rate (60-100 beats/min) 77 Post-test Oxygen Delivery Method Room Air Pulse Ox (%) 96 Pulse Rate (60-100 beats/min) 51 L Dyspnea Tae Scale (0-10) 0.5 Exertion Tae Scale (6-20) 13 Full Laps Walked 10 Partial Lap, Number of Tiles Walked 12 Total Distance Walked (ft) 602 - Interpretation Interpretation: The patient ambulated 602 feet over the course of 6 minutes beginning on room air with use of a cane. Pretesting oxygen saturation was noted to be 96% on room air. With ambulation, the emily oxygen saturation was 90%. This represents a significant exertional oxygen desaturation with a pulmonary limitation to exercise tolerance. - Recommendations Recommendations: There is no indication for the use of supplemental oxygen at this time. However, close interval follow-up is recommended, given the degree of oxygen desaturation noted during this study.
--- NOTE | 2018-06-03 12:34 | WT_ITS ---
PSN 6 Minute Walk Test - 6 Minute Walk Test 6 Minute Walk Test: 6 Minute Walk Test PSN:6-Minute Walk Test Start: 05/22/18 11:21 Freq: Status: Active Protocol: RESP.6MINW Document 05/22/18 11:21 [facility] (Rec: 05/22/18 11:23 [facility] [id number]) 6 Minute Walk Test Date Performed 05/22/18 Time Performed 11:01 Height 5 ft 5 in Weight: 153 lb Weight in Pounds 153.[address]: Harriet Sanchez Assistive device used: Cane Pre-test Oxygen Delivery Method Room Air Pulse Ox (%) 96 Pulse Rate (60-100 beats/min) 50 L Dyspnea Tae Scale (0-10) 0 Exertion Tae Scale (6-20) 11 1st minute Oxygen Delivery Method Room Air Pulse Ox (%) 94 Pulse Rate (60-100 beats/min) 74 2nd minute Oxygen Delivery Method Room Air Pulse Ox (%) 91 Pulse Rate (60-100 beats/min) 77 3rd minute Oxygen Delivery Method Room Air Pulse Ox (%) 90 Pulse Rate (60-100 beats/min) 75 4th minute Oxygen Delivery Method Room Air Pulse Ox (%) 90 Pulse Rate (60-100 beats/min) 73 5th minute Oxygen Delivery Method Room Air Pulse Ox (%) 90 Pulse Rate (60-100 beats/min) 75 6th minute Oxygen Delivery Method Room Air Pulse Ox (%) 91 Pulse Rate (60-100 beats/min) 77 Post-test Oxygen Delivery Method Room Air Pulse Ox (%) 96 Pulse Rate (60-100 beats/min) 51 L Dyspnea Tae Scale (0-10) 0.5 Exertion Tae Scale (6-20) 13 Full Laps Walked 10 Partial Lap, Number of Tiles Walked 12 Total Distance Walked (ft) 602 - Interpretation Interpretation: The patient ambulated 602 feet over the course of 6 minutes beginning on room air with use of a cane. Pretesting oxygen saturation was noted to be 96% on room air. With ambulation, the emily oxygen saturation was 90%. This represents a significant exertional oxygen desaturation with a pulmonary limitation to exercise tolerance. - Recommendations Recommendations: There is no indication for the use of supplemental oxygen at this time. However, close interval follow-up is recommended, given the degree of oxygen desaturation noted during this study.
== END ==
PROVIDERS: Family Provider Family Medicine; PCP Family Medicine; Referring Provider Nurse Practitioner Acute Care; Visit Provider Nurse Practitioner Acute Care
DX: I27.20 Pulmonary hypertension, unspecified (principal)
CPT/HCPCS: 94618

== ENCOUNTER → 2018-11-28 | Outpatient (CLI) | payer MEDICARE, OTHER, SELFPAY ==
[2018-10-06 13:41] VITALS: BMI 24.1
--- NOTE | 2018-11-28 12:27 | RAD_ITS ---
STUDY: X-RAY CHEST REASON FOR EXAM: Female, 78 years old. Shortness of breath, cough TECHNIQUE: PA and lateral views of the chest. COMPARISON: 07/24/2016 and 04/07/2018 FINDINGS: There is hyperinflation of the lungs consistent with chronic obstructive lung disease (COPD). No airspace consolidation. There is no demonstrated pleural abnormality. There is mild cardiac enlargement. Normal mediastinum and jonas. Normal visualized pulmonary arteries. Aortic stent graft is similar. There is demineralization of the osseous structures. Operative changes of the thoracolumbar spine again identified. Healed bilateral posterior rib fractures are again demonstrated. There are degenerative changes of the left shoulder. There is no demonstrated abnormality of the visualized soft tissue structures of the upper abdomen. Right renal artery stent is suspected. RAD/Chest PA and Lateral IMPRESSION: 1. Stable exam. No acute cardiopulmonary process. 2. Operative changes including thoracic aortic stent graft. Electronically Signed: Kai Chaudhary MD at 11:33 EDT , Service support ,
[2018-11-28 13:27] LABS: Anion Gap 5 (5-15); BUN 33 mg/dL (7-18); Calcium,Total 8.9 mg/dL (8.5-10.1); Chloride 110 mmol/L (98-107); EST Glomerular Filtration Rate 35 mL/min (>60); Est Glom Filt Rate - Afr Amer 43 mL/min (>60); Glucose 100 mg/dL (74-106); Potassium 3.5 mmol/L (3.5-5.1); Sodium Level 141 mmol/L (136-145)
== END | disposition home or self-care (01) ==
PROVIDERS: Family Provider Family Medicine; PCP Family Medicine; Referring Provider Family Medicine; Visit Provider Family Medicine
DX: R06.00 Dyspnea, unspecified (principal); I10 Essential (primary) hypertension; R05 Cough; I71.01 Dissection of thoracic aorta
CPT/HCPCS: 36415; 71046; 80048; 83880; 97110

== ENCOUNTER → 2018-12-10 | Outpatient (CLI) | payer MEDICARE, OTHER, SELFPAY ==
[2018-12-02 09:24] VITALS: BMI 24.1
[2018-12-10 18:17] LABS: Anion Gap 8 (5-15); BUN 51 mg/dL (7-18); BUN/Creat Ratio 28.7 RATIO (10-20); Calcium,Total 8.6 mg/dL (8.5-10.1); Chloride 108 mmol/L (98-107); Creatinine, Serum 1.78 mg/dL (0.55-1.02); EST Glomerular Filtration Rate 29 mL/min (>60); Est Glom Filt Rate - Afr Amer 35 mL/min (>60); Glucose 92 mg/dL (74-106); Potassium 3.6 mmol/L (3.5-5.1); Sodium Level 139 mmol/L (136-145)
[2018-12-10 18:26] LABS: BNP,B-Type NATRIURETIC PEPTIDE 121.2 pg/mL (0-100)
== END | disposition home or self-care (01) ==
LOC: LAB 16:56
PROVIDERS: Family Provider Family Medicine; PCP Family Medicine; Referring Provider Internal Medicine Cardiovascular Disease; Visit Provider Internal Medicine Cardiovascular Disease
DX: R06.00 Dyspnea, unspecified (principal)
CPT/HCPCS: 36415; 80048; 83880

== ENCOUNTER → 2018-12-24 | Outpatient (CLI) | payer MEDICARE, OTHER, SELFPAY ==
[2018-10-06 13:41] VITALS: BMI 24.1
[2018-12-02 09:24] VITALS: BMI 24.1
--- NOTE | 2018-12-24 14:27 | BI_ITS ---
MAMMOGRAPHY - BILATERAL SCREENING REASON FOR EXAM: Female, 78 years old. Routine annual screening examination. PERTINENT HISTORY: Daughter with breast cancer. History of lymphoma. TECHNIQUE: Digital bilateral breast dionicio (3D mammographic acquisition) in the CC and MLO projections. 2-D mediolateral oblique (MLO) and craniocaudad (CC) views of both breasts were obtained. CAD: Full Field Digital Mammography with Computer Added Detection was performed. COMPARISON: Comparison is made with prior examination dated November 14, 2017. FINDINGS: Breast Composition: The breasts are heterogeneously dense, which may obscure small masses. There are no dominant masses or suspicious calcifications. Stable scattered bilateral secretory calcification. No other significant abnormalities are identified. There has been no significant change since the prior study. BI/SCREEN MAMM (CAD) W/DIONICIO BILAT IMPRESSION: Stable bilateral screening mammogram. Yearly follow-up mammogram recommended. (A) ASSESSMENT CATEGORY: BIRADS Category 2: Benign. A letter regarding these results will be sent to the patient by the facility within 30 days. Approximately 10% of breast cancers are not detected by mammography. A normal mammogram should not delay biopsy of a clinically suspicious abnormality. [id number] Electronically Signed: Selvin Price, at 15:22 EDT , Service support ,
== END | disposition home or self-care (01) ==
LOC: OPBI 14:24
PROVIDERS: Family Provider Family Medicine; PCP Family Medicine; Referring Provider Obstetrics & Gynecology; Visit Provider Obstetrics & Gynecology
DX: Z12.31 Encounter for screening mammogram for malignant neoplasm of breast (principal); I71.01 Dissection of thoracic aorta
CPT/HCPCS: 77063; 77067; 97140; 97530

== ENCOUNTER → 2018-12-26 | Outpatient (CLI) | payer MEDICARE, OTHER, SELFPAY ==
[2018-12-02 09:24] VITALS: BMI 24.1
[2018-12-26 15:05] LABS: Anion Gap 8 (5-15); BUN 34 mg/dL (7-18); BUN/Creat Ratio 22.2 RATIO (10-20); Calcium,Total 9.1 mg/dL (8.5-10.1); Chloride 109 mmol/L (98-107); Creatinine, Serum 1.53 mg/dL (0.55-1.02); EST Glomerular Filtration Rate 35 mL/min (>60); Est Glom Filt Rate - Afr Amer 42 mL/min (>60); Glucose 111 mg/dL (74-106); Potassium 3.8 mmol/L (3.5-5.1); Sodium Level 141 mmol/L (136-145)
== END | disposition home or self-care (01) ==
LOC: LAB 14:18
PROVIDERS: Family Provider Family Medicine; PCP Family Medicine; Referring Provider Internal Medicine Cardiovascular Disease; Visit Provider Internal Medicine Cardiovascular Disease
DX: I34.0 Nonrheumatic mitral (valve) insufficiency (principal); I35.0 Nonrheumatic aortic (valve) stenosis
CPT/HCPCS: 36415; 80048

== ENCOUNTER → 2018-12-29 | Outpatient (CLI) | payer MEDICARE, OTHER, SELFPAY ==
[2018-12-02 09:24] VITALS: BMI 24.1
--- NOTE | 2018-12-29 10:10 | ECHOD_ITS ---
Reason For Study: Dyspnea/SOB Procedure This was a 2D Doppler, Color Flow transthoracic echocardiogram. Myocardial strain analysis was performed in this exam to aid in the assessment of cardiac function. Contrast injection was performed. Exam performed in department. Left Ventricle Normal LV size. Moderate concentric left ventricular hypertrophy. Left ventricular systolic function is normal. The estimated ejection fraction is 65 %. There is evidence of diastolic dysfunction. No regional wall motion abnormalities noted. Right Ventricle Normal RV size. Normal systolic function. Atria The left atrium is moderately enlarged. The right atrium is mildly enlarged. No doppler evidence for ASD. Mitral Valve There is no mitral annular calcification. Mild focal mitral valve calcification of the anterior leaflet. Trivial mitral valve insufficiency. Tricuspid Valve Normal tricuspid valve. Mild tricuspid valve insufficiency. Right ventricular systolic pressure estimated to be 49 mmHg. Aortic Valve Trisinus/trileaflet aortic valve. Mild diffuse aortic valve thickening. Mild focal aortic valve calcification. Aortic sclerosis, no stenosis. Pulmonic Valve The pulmonic valve is not well visualized. Trivial pulmonic valve insufficiency. Great Vessels Normal sized aortic root. Pericardium/Pleural No pericardial effusion. MMode/2D Measurements & Calculations LVIDd: 4.1 cm IVSd: 1.5 cm LVOT diam: 2.0 cm LVIDs: 2.4 cm LVPWd: 1.6 cm LVOT area: 3.0 cm2 RVDd: 3.3 cm FS: 41.5 % Ao root diam: 3.7 cm LAV(MOD-bp): 59.1 ml LA A4 area: 18.8 cm2 LA dimension: 4.2 cm LAV(MOD-bp) Indexed: 34.1 ml/m2 LAV(MOD-sp2): 77.3 ml LAV(MOD-sp4): 46.8 ml RA A4 area: 18.8 cm2 Time Measurements MV dec time: 0.42 sec Doppler Measurements & Calculations MV E max tremaine: 54.5 cm/sec Lat Peak E' Tremaine: 3.7 cm/sec Med Peak E' Tremaine: 4.4 cm/sec MV A max tremaine: 103.0 cm/sec E/E' lat: 14.5 E/E' med: 12.4 MV E/A: 0.53 MV V2 max: 143.4 cm/sec MV P1/2t max tremaine: 77.0 cm/sec Ao V2 max: 172.1 cm/sec MV max P.2 mmHg MV P1/2t: 181.0 msec Ao max P.8 mmHg MV V2 mean: 59.3 cm/sec MV dec slope: 124.7 cm/sec2 CAROLIN(V,D): 2.2 cm2 MV mean P.7 mmHg MV V2 VTI: 43.9 cm MVA(P1/2t): 1.2 cm2 LV V1 max: 123.7 cm/sec PA V2 max: 111.1 cm/sec PI end-d tremaine: 138.0 cm/sec LV V1 max P.1 mmHg TR max tremaine: 339.7 cm/sec TR max P.2 mmHg Interpretation Summary Left ventricular systolic function is normal. The estimated ejection fraction is 65 %. Moderate concentric left ventricular hypertrophy. The left atrium is moderately enlarged. The right atrium is mildly enlarged. Mild focal mitral valve calcification of the anterior leaflet. Trivial mitral valve insufficiency. Mild tricuspid valve insufficiency. Aortic sclerosis, no stenosis. Trivial pulmonic valve insufficiency. Right ventricular systolic pressure estimated to be 49 mmHg. There is evidence of diastolic dysfunction. Ordering Physician: Trent Rosa Referring Physician: Trent Rosa Performed By: Washington Starr RCS
== END | disposition home or self-care (01) ==
LOC: CVS 10:09
PROVIDERS: Family Provider Family Medicine; PCP Family Medicine; Referring Provider Internal Medicine Cardiovascular Disease; Visit Provider Internal Medicine Cardiovascular Disease
DX: I71.01 Dissection of thoracic aorta (principal)
CPT/HCPCS: 93306

== ENCOUNTER 2019-01-28 13:00 | Outpatient (RCR) | payer MEDICARE, OTHER, SELFPAY ==
[2018-08-15 11:42] VITALS: BMI 22.9
--- NOTE | 2018-09-26 10:50 | HP.PTEVAL ---
Patient's Visit Information DANAE KYLE is a 78 year old F referred to Physical Therapy by MICHELLE DEVINE with a diagnosis of aortic dissection. Date of Evaluation: 09/26/18 Physical Therapist: Newton Fong, MANT, OCS, CSCS - Visit Plan Frequency: 3x /Week Duration: 4-6 Weeks Plan: 3x/week for 4-6 weeks for : 1. teach gastroc and HS stretches for HEP. 2. Strengthen LE, posture and progress back to machines at . 3. Balance/gait increasing volume as back pain allows. Had stents in aorta via catheterization mid august and is weak form that and previous problems in July. 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 it was fixed adn in ICU for 14 days at [facility]. Also put stent in the aorta on 09/04. In and out of hospital last couple months. Home from hospital on 09/08/18. Now needs to be stronger and better balance. Using wh walker now but not needed prior (used cane). she had two TKA and back surgeries over the last 4 years. Feels like balance is off but no falls. Feels weak. Gets out of breath easy and cannot walk far. Has back pain when standing up too long. Had CT scan showing stent in aorta was fine. likely inflammed in back form stents. Standing is limited to 10 minutes due to back pain. Sleeping is good. Sitting is not painful. Sleeps about 7 hours which is normal for her. Takes meds 9x per day. Now lives with on one story, three steps to enter with railing and not difficult. Has basement with craft supplies and gets down there OK but very fatiguing especially to breathing. 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 Wants to get back to working out at , walking for fun/fitness. Active socially prior to these incidents. Is limtied in going out. Not driving yet due to weakness which makes her leary. Basic aDLS dress, shower, bathroom OK. Little bit of cleaing, avoiding lifting over 8 #(milk) due to precautions. Sees surgeon in December. Dr Rosa in October. Precautions are none except living heavy things. no dizzyness, no neuropathy. - Pain back pain Pain Intensity (Out of 10): 0 Pain Intensity Range: 0, 7 - Objective Trasnfers out of chair without UE, slowly. Hesitant walking and slow but does well even without walker, limited to about 300 feet without AD before needs to take a break due to fatiuge and mid back pain. Steps are reciprocal with one rail today. Slow and careful. LB AROM max limited in all motions(history of fusion) but not painful. C/S AROM WFL adn without pain today. reflexes patella and achilles 2/3. Sensation LE WNL to gross light touch. Strength LE 4-/5 without pain. HS and gastroc mod tight. UE AROM WFL and 4/5 strength without pain. coordination to reciprocal toe tap is slight deficits approp for age. OVERALL FATIGUES VERY EASILY AND FEELS UNSTEADY WITH AMBULATION AND QUICKER MOVEMENTS. - Balance Scores Functional Gait Assessment Score: 21 % Disability: 30.0000 CATSIB Score (Max score 120 seconds): 85 - Goals Goal 1:: Patient ambulate 600 feet with or without AD safe and I without back pain. Goal Time Frame: 4-6 Weeks Goal 2:: FGA score of 25/30 to diminish fall risk Goal Time Frame: 4-6 Weeks Goal 3:: Patient feel back to 90% normal activities including walking socailly and workout at [facility]. Goal Time Frame: 4-6 Weeks Goal 4:: <20% disability on LB oswestry. Goal Time Frame: 4-6 Weeks - Rehabilitation Potential Physical Therapy Diagnosis: weakness and imbalance after aortic dissection downtime frim catheterization. Rehabilitation Potential: Good - Anticipated Interventions Patient/Client Instruction: Educate patient on: Condition, Plan of Care For the Purpose of:: To decrease pain, To improve muscle performance and motor function, To improve ability to perform ADL's, To improve ability of physical actions for home/community/work/leisure Therapeutic Exercise to Include: Strength training, Balance training, Flexibilty training, Gait and locomotor training, Active ROM For the Purpose of:: To decrease pain, To improve muscle performance and motor function, To increase tolerance to activity/condition/position, To improve balance, To assume or resume ADL's Thank you for the opportunity to evaluate your patient. For Medicare and Medicare HMO plans, please review the plan of care and approve it. It will need to be FAXED BACK to us at [phone] for Medicare purposes. For Medicare only, by signing this I certify the plan of care. Please let me know if there are questions or concerns regarding this plan of care. Physician Signature: Date:
--- NOTE | 2018-10-17 13:20 | HP.PTREVAL ---
MICHELLE DEVINE, It has been my pleasure to treat DANAE KYLE over the last 10 visits for aortic dissection. Please see the progress note below for an update on the physical therapy plan of care! Subjective: Making progress. Things getting easier to do at home. Energy level is slowly improving but still has long way to go. Back pain not as bad but still hurts if stand too long, gone with NWB. Doing laundry and cleaning a little bit at home. taking 2 days to do laundry but I did it. HEP: Counter adn stretches and walking daily. No AD in small rooms at home, wh walker out except stores whcih require electric cart. Objective/Function: sit to stadn without arms slow btu I. FGA improving. SOB after 250 feet mild today. Toelrated the FGA today and no LOB, moving better adn SOB still main factor holding her back. Plan Plan: continue 3x/week for 3 weeks for LE postural strength and function progressing gait distances and steps. Goals Goal 1:: Patient ambulate 600 feet with or without AD safe and I without back pain. Goal Time Frame: 4-6 Weeks Goal Progress: 300 feet today. Goal 2:: FGA score of 25/30 to diminish fall risk Goal Time Frame: 4-6 Weeks Goal Progress: Progressing Goal 3:: Patient feel back to 90% normal activities including walking socailly and workout at I. Goal Time Frame: 4-6 Weeks Goal Progress: Progressing Goal 4:: <20% disability on LB oswestry. Goal Time Frame: 4-6 Weeks Goal Progress: Progressing slowly! Anticipated Interventions Patient/Client Instruction: Educate patient on: Condition, Plan of Care For the Purpose of:: To decrease pain, To improve muscle performance and motor function, To improve ability to perform ADL's, To improve ability of physical actions for home/community/work/leisure Therapeutic Exercise to Include: Strength training, Balance training, Flexibilty training, Gait and locomotor training, Active ROM For the Purpose of:: To decrease pain, To improve muscle performance and motor function, To increase tolerance to activity/condition/position, To improve balance, To assume or resume ADL's Please do not hesitate to contact me at [phone] by phone or if you have questions or concerns regarding this new plan of care! Sincerely, Newton Fong, DPT, OCS, CSCS
--- NOTE | 2018-11-12 11:27 | HP.PTREVAL ---
MICHELLE DEVINE, It has been my pleasure to treat DANAE KYLE over the last 19 visits for aortic dissection. Please see the progress note below for an update on the physical therapy plan of care! Subjective: Getting better. Feeling stronger because weights are improving. Activities are going well, less SOB. starting to walk in the house without walker. Standing can cause back pain if greater than 20 minutes. Sleep is fine. Still feels like she needs to be stronger adn get improved balance. Using wh walker all the time at home due to back pain more than balance. No back pain prior to this incident since back surgery years ago. walking and stretching at home and leg exercises at counter. No back exercises. Objective/Function: Walks slow but I without AD on firm surface, improving FGA. back pain is limiting factor after about 250 feet today including steps. steps require rail and reciprocal. Pt stays hunched over and this worsens as she walks further. Much better with walker. Stilla voids FW weight shift with function. LB aROM very limited in ext adn SB, full flexion, no motion reporoduces back pain which alleviates with sitting. MUCH BETTER OVERALL , PROGRESS LIMITED BY BACK PAIN AND APPROPRIATE TO CONTINUE WITH FAIR PROGNOSIS TO GAO. Plan Plan: 3x/week for 3-6 more weeks... 1. LB ROM progressing to HEP, NS DLS. 2. As back allows, functional progression of gait without AD, steps and balance with weight shifts. Goals Goal 1:: Patient ambulate 600 feet with or without AD safe and I without back pain. Goal Time Frame: 4-6 Weeks Goal Progress: met but pain limits. Goal 2:: FGA score of 25/30 to diminish fall risk Goal Time Frame: 4-6 Weeks Goal Progress: Progressing, approp Goal 3:: Patient feel back to 90% normal activities including walking socailly and workout at [facility]. Goal Time Frame: 4-6 Weeks Goal Progress: Progressing, approp. Goal 4:: <20% disability on LB oswestry. Goal Time Frame: 4-6 Weeks Goal Progress: not progress,LEFS today. Goal 5:: LBP limited to 1/10 with 600 feet walking and able to go in and out of PT without AD. Goal Time Frame: 2-4 Weeks Goal Progress: NEW GOAL Goal 6:: I approp LB HEP to limit problems with standing walking back pain. Goal Time Frame: 4-6 Weeks Goal Progress: NEW GOAL Anticipated Interventions Patient/Client Instruction: Educate patient on: Condition, Plan of Care For the Purpose of:: To decrease pain, To improve muscle performance and motor function, To improve ability to perform ADL's, To improve ability of physical actions for home/community/work/leisure Therapeutic Exercise to Include: Strength training, Balance training, Flexibilty training, Gait and locomotor training, Active ROM For the Purpose of:: To decrease pain, To improve muscle performance and motor function, To increase tolerance to activity/condition/position, To improve balance, To assume or resume ADL's Please do not hesitate to contact me at [phone] by phone or if you have questions or concerns regarding this new plan of care! Sincerely, Newton Fong, DPT, OCS, CSCS
--- NOTE | 2018-12-24 13:35 | HP.PTREVAL_ITS ---
MICHELLE DEVINE, It has been my pleasure to treat DANAE KYLE over the last 26 visits for aortic dissection. Please see the progress note below for an update on the physical therapy plan of care! Subjective: Fell a couple weeks ago after getting shoe on R foot with 3/4 inch lift. Shoe flipped her adn she tumbled down 5 [address] to [address]. No breaks , just bruises. Getting used to R shoe lif now. Was not using walker at the time but still is most of the time. Uses grocery cart at store. can walk short distances without it at home. Sleep is OK. Doing all activities outside of heavy house cleaning. Has to use swiffer to mop. Has to vaccuum in short spurts. Wants to be able to get back to walking for exercise and other good workouts. Balance and strength could still be better. Doing supine adn sitting and standing strength and stretches all tries 3x/week. Aff to [place] for visit [facility] next week. January 06 will see surgeon. Would love to have some more therapy. Objective/Function: Walks with L slight trrendelenberg. Able without AD but slow. Walks Mod I with wh walker. Trasnfers out of chair I. FGA is +1 over the last month despite her fall and shoe lift. Quads feel tight to patient but otherwise not painful. Exercises really helped this in the past. PT DOING WELL BUT HAD SET BACK WITH FALL. Goals appropriate with fair prognosis. Plan Plan: 3x/week for 3 weeks to teach machine based strengthening and progress to I with list.. Also continue gait balance. Goals Goal 1:: Patient ambulate 600 feet with or without AD safe and I without back pain. Goal Time Frame: 4-6 Weeks Goal Progress: setback with fall, approp Goal 2:: FGA score of 25/30 to diminish fall risk Goal Time Frame: 4-6 Weeks Goal Progress: Progressing, slowly. Goal 3:: Patient feel back to 90% normal activities including walking socailly and workout at I. Goal Time Frame: 4-6 Weeks Goal Progress: Progressing Goal 4:: <20% disability on LB oswestry. Goal Time Frame: 4-6 Weeks Goal Progress: not progress,LEFS today. Goal 5:: LBP limited to 1/10 with 600 feet walking and able to go in and out of PT without AD. Goal Time Frame: 2-4 Weeks Goal Progress: not yet due to set back Goal 6:: I approp LB HEP to limit problems with standing walking back pain. Goal Time Frame: 4-6 Weeks Goal Progress: Progressing, needs lo Anticipated Interventions Patient/Client Instruction: Educate patient on: Condition, Plan of Care For the Purpose of:: To decrease pain, To improve muscle performance and motor function, To improve ability to perform ADL's, To improve ability of physical actions for home/community/work/leisure Therapeutic Exercise to Include: Strength training, Balance training, Flexibilty training, Gait and locomotor training, Active ROM For the Purpose of:: To decrease pain, To improve muscle performance and motor function, To increase tolerance to activity/condition/position, To improve balance, To assume or resume ADL's Please do not hesitate to contact me at [phone] by phone or if you have questions or concerns regarding this new plan of care! Sincerely, Newton Fong, DPT, OCS, CSCS
--- NOTE | 2019-01-28 14:26 | HP.PTDCSUM ---
HP - PT D/C Summary It has been my pleasure to treat DANAE KYLE under orders from MICHELLE DEVINE, for the diagnosis of aortic dissection for a total of 36 visit(s). Discharge Date: 01/28/19 Please see the following information for a summary of their discharge status. - Subjective Subjective: I can do it on my own now. I still have some issues but should be able to contiue with ex I. Breathing difficulty is the hardest thing. LBP still requires rest for 5-10 minutes. Is doing everything she needs to do at home with meals, laundry, cleaning.Frequent rests required. Can't walk 1/4 mile yet. - Pain back pain Pain Intensity (Out of 10): 0 - Overall Improvement % Improvement: 50 - Objective Objective/Function: Walks I withotu AD limited to 150 feet by short breath and thigh fatigue, back doing OK. Needs UE on steps but does so reciprocally. Standing balance good. Slightly neuropathic gait pattern. Walks faster with the walker. - Goals Goal 1:: Patient ambulate 600 feet with or without AD safe and I without back pain. Goal Progress: limited by breath 150 ft Goal 2:: FGA score of 25/30 to diminish fall risk Goal Progress: Goal Met Goal 3:: Patient feel back to 90% normal activities including walking socailly and workout at [facility]. Goal Progress: Progressing Goal 4:: <20% disability on LB oswestry. Goal Progress: not met Goal 5:: LBP limited to 1/10 with 600 feet walking and able to go in and out of PT without AD. Goal Progress: Not Progressing, back Goal 6:: I approp LB HEP to limit problems with standing walking back pain. Goal Progress: met bola martinez. - Plan Plan: d/c - D/C Information Discharge Comments: Pt doing well with improved balance and gait. Will cotninue via [employer]. If there are questions or concerns regarding this patient's physical therapy, please feel free to call me at [phone]. Thank you for the referral of this patient. Sincerely, Newton Fong, DPT, OCS, CSCS
== END 2019-01-28 19:00 | disposition home or self-care (01) ==
LOC: PT 13:00
PROVIDERS: Family Provider Family Medicine; PCP Family Medicine
DX: I71.01 Dissection of thoracic aorta (principal)
CPT/HCPCS: 97110; 97140; 97162; 97530

== ENCOUNTER → 2019-01-28 | Outpatient (CLI) | payer MEDICARE, OTHER, SELFPAY ==
[2018-12-02 09:24] VITALS: BMI 24.1
[2019-01-28 17:07] LABS: Anion Gap 6 (5-15); BUN 25 mg/dL (7-18); Calcium,Total 9.1 mg/dL (8.5-10.1); Chloride 107 mmol/L (98-107); Creatinine, Serum 1.47 mg/dL (0.55-1.02); EST Glomerular Filtration Rate 36 mL/min (>60); Est Glom Filt Rate - Afr Amer 44 mL/min (>60); Glucose 86 mg/dL (74-106); Potassium 3.7 mmol/L (3.5-5.1); Sodium Level 138 mmol/L (136-145)
== END | disposition home or self-care (01) ==
LOC: LAB 15:00
PROVIDERS: Family Provider Family Medicine; PCP Family Medicine; Referring Provider Internal Medicine Cardiovascular Disease; Visit Provider Internal Medicine Cardiovascular Disease
DX: I10 Essential (primary) hypertension (principal); I71.01 Dissection of thoracic aorta
CPT/HCPCS: 36415; 80048; 97110; 97530

== ENCOUNTER → 2019-02-16 | Outpatient (CLI) | payer MEDICARE, OTHER, SELFPAY ==
[2018-12-02 09:24] VITALS: BMI 24.1
[2019-02-16 09:22] VITALS: PULSE 68; PULSE 70; PULSE 75; PULSE 76; PULSE 77; PULSE 78; PULSE 80; O2SAT 92; O2SAT 93; O2SAT 94; O2SAT 95
--- NOTE | 2019-02-16 10:01 | PCM.PSN.6M ---
PSN 6 Minute Walk Test - 6 Minute Walk Test 6 Minute Walk Test: 6 Minute Walk Test PSN:6-Minute Walk Test Start: 02/16/19 09:22 Freq: Status: Active Protocol: RESP.6MINW Document 02/16/19 09:22 LIZBETH (Rec: 02/16/19 09:24 LIZBETH [id number]) 6 Minute Walk Test Date Performed 02/16/19 Time Performed 09:00 Height 5 ft 5 in Weight: 67.132 kg Weight in Pounds 148.[address]: Jareth Joseph Assistive device used: Walker Pre-test Oxygen Delivery Method Room Air Pulse Ox (%) 94 Pulse Rate (60-100 beats/min) 68 Dyspnea Tae Scale (0-10) 0 Exertion Tae Scale (6-20) 6 1st minute Oxygen Delivery Method Room Air Pulse Ox (%) 95 Pulse Rate (60-100 beats/min) 80 2nd minute Oxygen Delivery Method Room Air Pulse Ox (%) 93 Pulse Rate (60-100 beats/min) 78 3rd minute Oxygen Delivery Method Room Air Pulse Ox (%) 92 Pulse Rate (60-100 beats/min) 75 4th minute Oxygen Delivery Method Room Air Pulse Ox (%) 92 Pulse Rate (60-100 beats/min) 77 5th minute Oxygen Delivery Method Room Air Pulse Ox (%) 94 Pulse Rate (60-100 beats/min) 76 6th minute Oxygen Delivery Method Room Air Pulse Ox (%) 92 Pulse Rate (60-100 beats/min) 77 Dyspnea Tae Scale (0-10) 2 Exertion Tae Scale (6-20) 13 Post-test Oxygen Delivery Method Room Air Pulse Ox (%) 94 Pulse Rate (60-100 beats/min) 70 Full Laps Walked 9 Partial Lap, Number of Tiles Walked 10 Total Distance Walked (ft) 541 - Interpretation Interpretation: The patient was able to ambulate only 541 feet over the course of 6 minutes on room air with the assistance of a walker and no breaks. The patient did desaturate as low as 92%, but no tachycardia was noted. These findings are consistent with a musculoskeletal limitation exercise tolerance. - Recommendations Recommendations: No supplemental oxygen is indicated at this time.
== END | disposition home or self-care (01) ==
LOC: PSN 09:03
PROVIDERS: Family Provider Family Medicine; PCP Family Medicine; Referring Provider Nurse Practitioner Acute Care; Visit Provider Nurse Practitioner Acute Care
DX: R06.00 Dyspnea, unspecified (principal)
CPT/HCPCS: 94618

== ENCOUNTER → 2019-02-17 | Outpatient (CLI) | payer MEDICARE, OTHER, SELFPAY ==
[2018-12-02 09:24] VITALS: BMI 24.1
--- NOTE | 2019-02-17 13:07 | PFTCOMP_ITS ---
COMPLETE PULMONARY FUNCTION TEST INTERPRETATION Brief HPI: Patient is an 79 year old female, currently under the care of myself, who presents to [facility] for complete pulmonary function tests secondary to diagnosis of dyspnea. Respiratory therapist reports good effort and reproducible results. Interpretation: Forced expiration spirometry shows a mild large airways obstructive ventilatory defect with an FEV1 of 86% predicted. There is no significant bronchodilator response by strict ATS criteria. Spirograms are of good quality and plateau slowly, indicating slowly emptying areas of the lungs. The respiratory flow volume loop shows decreased expiratory flow rates at all lung volumes consistent with airway obstruction. Lung volumes by body plethysmography show a normal total lung capacity at 5.29 L, 105% predicted. All other lung volumes are within normal limits. Diffusion capacity by carbon monoxide is at the lower limit of normal at 64% predicted. The airway resistance is elevated. No previous pulmonary function tests were available for review. Impression: Irreversible mild large airways obstructive ventilatory defect with a symmetric reduction diffusion capacity, and a pattern consistent with COPD.
== END | disposition home or self-care (01) ==
LOC: PSN 09:58
PROVIDERS: Family Provider Family Medicine; PCP Family Medicine; Referring Provider Nurse Practitioner Acute Care; Visit Provider Nurse Practitioner Acute Care
DX: R60.0 Localized edema (principal)
CPT/HCPCS: 94060; 94726; 94729

== ENCOUNTER → 2019-02-24 09:23 | Outpatient (CLI) | payer MEDICARE, OTHER, SELFPAY ==
[2018-12-02 09:24] VITALS: BMI 24.1
[2019-02-24 11:42] LABS: Anion Gap 8 (5-15); BUN 27 mg/dL (7-18); BUN/Creat Ratio 19.1 RATIO (10-20); Calcium,Total 8.9 mg/dL (8.5-10.1); Chloride 109 mmol/L (98-107); Creatinine, Serum 1.41 mg/dL (0.55-1.02); EST Glomerular Filtration Rate 38 mL/min (>60); Est Glom Filt Rate - Afr Amer 46 mL/min (>60); Glucose 110 mg/dL (74-106); Potassium 3.6 mmol/L (3.5-5.1); Sodium Level 143 mmol/L (136-145)
== END ==
PROVIDERS: Family Provider Family Medicine; PCP Family Medicine; Referring Provider Internal Medicine Cardiovascular Disease; Visit Provider Internal Medicine Cardiovascular Disease
DX: I34.0 Nonrheumatic mitral (valve) insufficiency (principal); I35.0 Nonrheumatic aortic (valve) stenosis
CPT/HCPCS: 36415; 80048

== ENCOUNTER 2019-02-27 17:57 | Emergency (ER) | payer MEDICARE, OTHER, SELFPAY ==
[2018-12-02 09:24] VITALS: BMI 24.1
[2019-02-27 17:59] VITALS: BP 149/72; PULSE 71; RESP 20; TEMP 36.6; O2SAT 94; BMI 24.6
--- NOTE | 2019-02-27 19:04 | ED.VIS.GEN ---
History of Present Illness Chief Complaint: Upper Extremity Injury Detail of Chief Complaint: Left wrist fracture Informant: Patient Onset: Yesterday Current Severity: Mild Maximum Severity: Mild Narrative: Patient had a trip and fall last evening and put her left hand out to catch herself. She called her PCP today who phoned in an order for left wrist x-ray. Patient received a phone call tonight that her wrist was broken and she needed to go to the emergency room. She denies any other injury from the fall. She is right-hand dominant. Past Medical History - Allergies and Home Meds Allergies/Adverse Reactions: Allergies bisoprolol Allergy (Verified 02/27/19 17:58) Unknown levofloxacin [From Levaquin] Allergy (Verified 02/27/19 17:58) Unknown meloxicam Allergy (Verified 02/27/19 17:58) Unknown Sulfa (Sulfonamide Antibiotics) Allergy (Verified 02/27/19 17:58) Unknown CODEINE COUGH SYRUP Adverse Reaction (Uncoded 02/27/19 17:58) Other BP ELEVATION. PT STATES ABLE TO TAKE PAIN MEDS WITH CODEINE WITHOUT TROUBLES Primary Care Physician: Jason Chinchilla MD [Primary Care Provider] - Doctors: Kendy Prior records reviewed: Yes Past Medical History: - - Reviewed Surgical History: - - Lumbar laminectomy/fusion 2014 Right carpal tunnel release Right total knee arthroplasty Left total hip arthroplasty, s/p revision lumbar laminectomy revision 04/25/17 Smoking Status: Former smoker - Family History Maternal Family History: Family History (Last Reviewed 12/02/18 @ 17:10 by KELLIE Ortiz) Mother CAD (coronary artery disease) Daughter Breast cancer Sister Breast cancer Father Brain aneurysm Family History: Reports: No pertinent history Paternal Family History: Family History (Last Reviewed 12/02/18 @ 17:10 by KELLIE Ortiz) Mother CAD (coronary artery disease) Daughter Breast cancer Sister Breast cancer Father Brain aneurysm Family History: Reports: No pertinent history Review of Systems General: Denies: Chills, Fever Eyes: Denies: Visual changes - bilaterally ENT: Denies: Bilateral ear pain Cardiovascular: Denies: Chest pain Respiratory: Denies: Dyspnea Gastrointestinal: Denies: Abdominal pain Genitourinary: Denies: Dysuria Musculoskeletal: Reports: Arthralgias, Extremity Pain Skin: Denies: Wounds Neurological: Denies: Headache, Weakness, Parasthesia Psych: Denies: Depression, Anxiety Hematologic: Denies: Easy bruising Allergy: Denies: Uticaria Physical Exam Vital Signs/Narrative: Vital Signs Temp Pulse Resp BP Pulse Ox 02/27/19 17:59 97.8 F 71 20 H 149/72 H 94 Inital Vital Signs reviewed: Yes General: Well nourished, Well developed Head: Normocephalic ENT: Moist mucous membranes Neck: Nontender Cardiovascular: Regular rate, Regular rhythm Respiratory: No distress Abdomen: Soft, Nontender Extremities: - - Tenderness to palpation along the radial aspect of the left wrist. Normal range of motion of all digits. Normal cap refill and sensation. No tenderness of the elbow or shoulder. Skin: Normal color Neurological: Alert, Oriented x3, Normal Strength, Normal Sensation Psychological: Normal affect Diagnostic/Tx/Re-eval - Medical Decision Making Outpatient x-rays are reviewed. There is a nondisplaced fracture of the distal radial metaphysis. AP Ortho-Glass splint is placed by myself. Following splint application patient has good cap refill distally and can wiggle fingers. She will follow up with [facility] whom she has seen in the past. Procedures - Upper Extremity Splints Upper Extremity Splint: Orthoglass Splint Fabrication: Fabricated Location: Left ED Disposition - Plan for ED Patient: Disposition: Home or Assisted Living Diagnosis: Left wrist fracture Instructions: FRACTURE, Wrist [General] Referrals: Scotty Anthony DO [STAFF PHYSICIAN] - 1 Week
== END 2019-02-27 19:10 | disposition home or self-care (01) ==
PROVIDERS: Emergency Provider Emergency Medicine; Family Provider Family Medicine; PCP Family Medicine
DX: S52.592A Other fractures of lower end of left radius, initial encounter for closed fracture (principal); M25.532 Pain in left wrist; Z87.891 Personal history of nicotine dependence; W01.0XXA Fall on same level from slipping, tripping and stumbling without subsequent striking against object, initial encounter; Y93.89 Activity, other specified; Y92.89 Other specified places as the place of occurrence of the external cause; Y99.8 Other external cause status
CPT/HCPCS: 29125; 73110; 99282

== ENCOUNTER → 2019-02-27 | Outpatient (CLI) | payer MEDICARE, OTHER, SELFPAY ==
[2018-12-02 09:24] VITALS: BMI 24.1
--- NOTE | 2019-02-27 14:11 | RAD_ITS ---
STUDY: X-RAY - LEFT WRIST REASON FOR EXAM: Female, 79 years old. Pain and swelling following a fall. TECHNIQUE: 3 view(s) of the wrist were obtained. COMPARISON: None. FINDINGS: There is evidence of a nondisplaced transverse fracture of the distal radial metaphysis with extension to the articular surface. Normal radiocarpal articulation. Normal distal radioulnar articulation. Normal carpal bones. Normal carpal articulations. There is degenerative arthrosis of the carpometacarpal articulation of the thumb. Normal second through fifth carpometacarpal articulations. Normal visualized metacarpal bones. Soft tissue swelling. RAD/Wrist min 3 Views IMPRESSION: Nondisplaced fracture of the distal radial metaphysis with extension to the articular surface. Soft tissue swelling. Electronically Signed: Selvin Price, at 14:32 EDT , Service support ,
== END | disposition home or self-care (01) ==
LOC: RAD 13:55
PROVIDERS: Family Provider Family Medicine; PCP Family Medicine; Referring Provider Family Medicine; Visit Provider Family Medicine
DX: M25.532 Pain in left wrist (principal)
CPT/HCPCS: 73110

== ENCOUNTER → 2019-04-01 | Outpatient (CLI) | payer MEDICARE, OTHER, SELFPAY ==
[2019-03-30 14:04] VITALS: BMI 25.0
[2019-04-01 14:27] LABS: Anion Gap 8 (5-15); BUN 27 mg/dL (7-18); BUN/Creat Ratio 19.7 RATIO (10-20); Calcium,Total 9.2 mg/dL (8.5-10.1); Chloride 109 mmol/L (98-107); Creatinine, Serum 1.37 mg/dL (0.55-1.02); EST Glomerular Filtration Rate 39 mL/min (>60); Est Glom Filt Rate - Afr Amer 48 mL/min (>60); Glucose 136 mg/dL (74-106); Potassium 3.6 mmol/L (3.5-5.1); Sodium Level 142 mmol/L (136-145)
== END | disposition home or self-care (01) ==
LOC: LAB 13:12
PROVIDERS: Family Provider Family Medicine; PCP Family Medicine; Referring Provider Internal Medicine Cardiovascular Disease; Visit Provider Internal Medicine Cardiovascular Disease
DX: I10 Essential (primary) hypertension (principal); I34.0 Nonrheumatic mitral (valve) insufficiency; I35.0 Nonrheumatic aortic (valve) stenosis
CPT/HCPCS: 36415; 80048

== ENCOUNTER 2019-04-13 17:44 | Emergency (ER) | payer MEDICARE, OTHER, SELFPAY ==
[2019-03-30 14:04] VITALS: BMI 25.0
[2019-04-13 17:45] VITALS: BP 152/69; PULSE 69; RESP 17; TEMP 36.4; O2SAT 96; BMI 24.5
--- NOTE | 2019-04-13 18:13 | ED.VISSUMM ---
- ER Visit Summary Date of Service: 04/13/19 Chief Complaint: The patient History of Present Illness: The patient is a 79 F who presents with constipation and rectal pain for the past 2 hours. Patient states that she has a history of rectal prolapse and is afraid to try and strain. Patient states she feels like she has a fecal impaction. Patient denies abdominal pain. Patient denies any nausea or vomiting. Patient denies any dysuria or hematuria. Patient has not tried any enemas at home. Physical Examination: Vital signs are stable. Patient is afebrile. Patient is in no acute distress. Oral mucosa is pink and moist. Neck is supple. Trachea is midline. There is no JVD noted. Heart was regular rate and rhythm. Lungs are clear and equal bilaterally. Abdomen is soft. Bowel sounds are normal. There is no tenderness. There is no guarding noted. Cranial nerves II through XII are intact. There are no focal motor or sensory deficits noted. Emergency Department Course and Treatment: Patient was disimpacted. Patient still felt the urge to defecate. Patient was given a soapsuds enema here in the emergency department. Patient was able to pass a little more stool. Patient was feeling better after this. She was instructed to follow-up with her primary care physician in 5 to 7 days. Patient was instructed to take stool softeners. Patient understood and was agreeable with the plan. All questions were answered. Disposition: Discharge home Impression: Fecal impaction This note was generated with [employer] dictation software. It may contain incorrect words, spelling, and punctuation that were not noted in review of the chart prior to signing ED Disposition - Plan for ED Patient: Disposition: Home or Assisted Living Diagnosis: Fecal impaction Instructions: FECAL IMPACTION, Treated, CONSTIPATION (Adult) Referrals: Jason Chinchilla MD [Primary Care Provider] - 5-7 Days Additional Instructions: You may take a stool softener such as Colace as needed.
[2019-04-13 19:47] VITALS: BP 145/76; PULSE 83; RESP 14; O2SAT 97
== END 2019-04-13 19:47 | disposition home or self-care (01) ==
PROVIDERS: Emergency Provider Emergency Medicine; Family Provider Family Medicine; PCP Family Medicine
DX: K56.41 Fecal impaction (principal); J44.9 Chronic obstructive pulmonary disease, unspecified; I10 Essential (primary) hypertension
CPT/HCPCS: 99284

== ENCOUNTER → 2019-05-15 | Outpatient (CLI) | payer MEDICARE, OTHER, SELFPAY ==
[2019-05-15 13:15] LABS: Anion Gap 8 (5-15); BUN 28 mg/dL (7-18); BUN/Creat Ratio 20.4 RATIO (10-20); Calcium,Total 9.1 mg/dL (8.5-10.1); Chloride 109 mmol/L (98-107); Creatinine, Serum 1.37 mg/dL (0.55-1.02); EST Glomerular Filtration Rate 39 mL/min (>60); Est Glom Filt Rate - Afr Amer 48 mL/min (>60); Glucose 101 mg/dL (74-106); Potassium 3.8 mmol/L (3.5-5.1); Sodium Level 140 mmol/L (136-145)
== END | disposition home or self-care (01) ==
LOC: LAB 11:36
PROVIDERS: Family Provider Family Medicine; PCP Family Medicine; Referring Provider Internal Medicine Cardiovascular Disease; Visit Provider Internal Medicine Cardiovascular Disease
DX: I10 Essential (primary) hypertension (principal); I34.0 Nonrheumatic mitral (valve) insufficiency; I35.0 Nonrheumatic aortic (valve) stenosis
CPT/HCPCS: 36415; 80048

== ENCOUNTER 2019-05-28 13:04 | Outpatient (RCR) | payer MEDICARE, OTHER, SELFPAY ==
[2019-05-18 10:51] VITALS: BMI 24.3
--- NOTE | 2019-05-28 13:53 | HP.PTEVAL_ITS ---
Patient's Visit Information DANAE KYLE is a 79 year old F referred to Physical Therapy by Out of Town Doctor with a diagnosis of Back pain. Date of Evaluation: 05/28/19 Physical Therapist: Newton Fong, MANT, OCS, CSCS - Visit Plan Frequency: 2x /Week Duration: 4-6 Weeks Plan: 2x/week for 4-6 weeks for pool therapy for. balance with gait. HS and gastroc stretching. LB spinal ROM as able. core and LE strength with posture adn progress to I. - Subjective Findings: Has back pain and surgeon thinks it is at top of fusion(2017) where aortic stent was placed and degenerative in nature. Has back pain daily 4/10 a nd can sit for 10 minutes adn it eases to 0/10 Comfortable at rest. Pain is worse on feet adn can only go 200-300 feet before it starts. 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 Pain is across mid back. Is fused up to T12. No specific back exercises. In gym working out 3x/week which does not make her worse. Legs feel really tight on the top and feel weak. July was in ICU for 14 days and legs have been weak since. Sleep is OK. Lives with , on one story with 3 to enter with rail and can do them. Uses wh walker most of time, not as much in small house and early in the day. Not employed. Spends day doing house chores adn grocery shop whcih takes forever. Basic ADLS are OK just slow adn can be painful if on feet. No numbness or neuropathy or dizzyness. Wears lift in R shoe as L leg is longer from hip surgery. - Pain Mid low back Pain Intensity (Out of 10): 4 Pain Intensity Range: 0, 4 - Objective L hip weak. Ambulates with wh walker mod I, without walker has unstable pelvis and SBA. SOB after 200 feet today. Steps are reciprocal with obviosu weakness in R hip and needs railing to pull on. Trasnfer chair and table I. Ankle and knee and hip aROM WFL. reflexes 2/3 patella and achilles. [place] LE WNL to gross light touch. Strength is 4/5 ankles, 4- knees adn 3+ hip ext adn flexion adn 4- abd B. LB AROM max limited in ext adn flexion in L/S(fully fused), SB max limited, none are tremendously painful. - Balance Scores Functional Gait Assessment Score: 20 % Disability: 33.3400 - Goals Goal 1:: I appropr HEP to minimize future problems with back pain. Goal Time Frame: 4-6 Weeks Goal 2:: LBP 2/10 at worst and walk 400 feet without increased pain. Goal Time Frame: 4-6 Weeks Goal 3:: Pt feel 50% better in overall pain level 10% better on oswestry disability Goal Time Frame: 4-6 Weeks - Rehabilitation Potential Physical Therapy Diagnosis: back pain Rehabilitation Potential: Fair - Anticipated Interventions Patient/Client Instruction: Educate patient on: Condition, Plan of Care For the Purpose of:: To decrease pain, To improve muscle performance and motor function, To increase tolerance to activity/condition/position, To improve ability of physical actions for home/community/work/leisure Therapeutic Exercise to Include: Strength training, Flexibilty training, Gait and locomotor training, In an aquatic setting, Passive ROM, Active ROM For the Purpose of:: To decrease pain, To increase ROM, To improve muscle performance and motor function, To improve ability of physical actions for home/community/work/leisure, To improve gait and locomotor functions Thank you for the opportunity to evaluate your patient. For Medicare and Medicare HMO plans, please review the plan of care and approve it. It will need to be FAXED BACK to us at [phone] for Medicare purposes. For Medicare only, by signing this I certify the plan of care. Please let me know if there are questions or concerns regarding this plan of care. Physician Signature: Date:
--- NOTE | 2019-07-23 09:52 | HP.PTDCNRP_ITS ---
HP - Discharge Summary (1) - Patient Information DANAE KYLE was seen in my office for initial evaluation on 05/28/19. The following Plan of Care was established for this patient: Initial Frequency: 2x /Week Initial Duration: 4-6 Weeks - Anticipated Interventions Patient/Client Instruction: Educate patient on: Condition, Plan of Care For the Purpose of:: To decrease pain, To improve muscle performance and motor f unction, To increase tolerance to activity/condition/position, To improve ability of physical actions for home/community/work/leisure Therapeutic Exercise to Include: Strength training, Flexibilty training, Gait and locomotor training, In an aquatic setting, Passive ROM, Active ROM For the Purpose of:: To decrease pain, To increase ROM, To improve muscle performance and motor function, To improve ability of physical actions for home/community/work/leisure, To improve gait and locomotor functions This patient was last seen in our office 05/28/19. Pertinent comments regarding their Physical therapy will appear below: Pt seen one visit and then cancelled due to being in hospital with pneumonia. Has been sent back with another chart and is being treated under that chart currently and will discontinue current chart. At this point I will be discontinuing this patient from physical therapy. I would be happy to see this patient again in the future if found appropriate by the physician. Thank you! Newton Fong, DPT, OCS, CSCS
== END 2019-05-28 19:00 | disposition home or self-care (01) ==
LOC: PT 13:04
PROVIDERS: Family Provider Family Medicine; PCP Family Medicine
DX: Z98.1 Arthrodesis status (principal)
CPT/HCPCS: 97162

== ENCOUNTER → 2019-06-04 12:19 | Outpatient (CLI) | payer MEDICARE, OTHER, SELFPAY ==
[2019-03-30 14:04] VITALS: BMI 25.0
[2019-05-18 10:51] VITALS: BMI 24.3
== END ==
PROVIDERS: Family Provider Family Medicine; PCP Family Medicine; Referring Provider Obstetrics & Gynecology; Visit Provider Obstetrics & Gynecology
DX: Z12.31 Encounter for screening mammogram for malignant neoplasm of breast (principal)

== ENCOUNTER → 2019-06-04 13:39 | Outpatient (CLI) | payer MEDICARE, OTHER, SELFPAY ==
[2019-06-04 13:00] VITALS: BMI 24.1
[2019-06-04 14:19] LABS: Absolute Lymphocyte Count 1.32 X10^3/uL (0.83-4.51); Absolute Neutrophil Count 7.2 X10^3/uL (2.0-7.7); Basophil# 0.08 X10^3/uL; Basophil% 0.8 % (0-1); Eosinophil# 0.18 X10^3/uL; Eosinophils% 1.8 % (0-5); Hematocrit 35.9 % (37-47); Hemoglobin 11.9 g/dL (12.0-15.0); Lymphocyte # 1.32 X10^3/ul (4.0); Lymphocyte % 13.1 % (19-41); Mean Corp Hgb Conc 33.1 g/dL (32-36); Mean Corpuscular Hgb 32.5 pg (27.0-32.0); Mean Corpuscular Volume 98.1 fL (81-99); Mean Platelet Vol. 8.5 fl (6.2-12.0); Monocyte# 0.95 X10^3/uL; Monocyte% 9.4 % (0-10); NRBC Flagged by Analyzer 0 % (0-5); Neutrophil # 7.16 X10^3/uL (2.7-7.7); Neutrophil % 70.7 % (47-70); Platelet Count 232 K/mm3 (150-450); RBC Distribution Width CV 14.8 % (11.6-14.6); Red Blood Count 3.66 M/mm3 (4.2-5.4); White Blood Count 10.1 K/mm3 (4.4-11.0)
[2019-06-04 14:37] LABS: ALB/GLOB Ratio 0.7 RATIO (0.9-2.4); AST(SGOT) 18 U/L (15-37); Alanine Aminotransfer ALT/SGPT 28 U/L (13-56); Albumin, Serum 2.9 g/dL (3.2-5.0); Alkaline Phosphatase 67 U/L (45-117); Amylase 49 U/L (25-115); Anion Gap 7 (5-15); BUN 29 mg/dL (7-18); BUN/Creat Ratio 21.2 RATIO (10-20); Calcium,Total 9.3 mg/dL (8.5-10.1); Chloride 111 mmol/L (98-107); Creatinine, Serum 1.37 mg/dL (0.55-1.02); EST Glomerular Filtration Rate 39 mL/min (>60); Est Glom Filt Rate - Afr Amer 48 mL/min (>60); Glucose 99 mg/dL (74-106); Lipase 145 U/L (73-393); Potassium 3.7 mmol/L (3.5-5.1); Protein, Total 6.9 g/dL (6.4-8.2); Sodium Level 142 mmol/L (136-145)
[2019-06-04 14:38] LABS: T4 Free Direct 0.89 ng/dL (0.76-1.46); Thyroid Stim Hormone (TSH) 1.37 uIU/mL (0.358-3.74)
== END ==
PROVIDERS: Family Provider Family Medicine; PCP Family Medicine; Referring Provider Obstetrics & Gynecology; Visit Provider Obstetrics & Gynecology
DX: R14.0 Abdominal distension (gaseous) (principal)
CPT/HCPCS: 36415; 80053; 82150; 82378; 83690; 84439; 84443; 85025; 86304

== ENCOUNTER 2019-06-08 11:29 | Inpatient (IN) | payer MEDICARE, OTHER, SELFPAY ==
[2019-06-04 13:00] VITALS: BMI 24.1
[2019-06-08] VITALS (15 sets, daily range): BP systolic 116–144; BP diastolic 57–72; PULSE 59–83; RESP 17–30; TEMP 36.8–38.5; O2SAT 88–96; BMI 24.3; BMI 23.9
--- NOTE | 2019-06-08 12:59 | EKG12_ITS ---
Test Reason : SOB Blood Pressure : / mmHG Vent. Rate : 063 BPM Atrial Rate : 063 BPM P-R Int : 158 ms QRS Dur : 092 ms QT Int : 422 ms P-R-T Axes : 040 054 054 degrees QTc Int : 431 ms Normal sinus rhythm Normal ECG Confirmed by NAUN RODRIGUEZ, TONI ([id number]), city editor MALLORIE LOGAN ([id number]) on 06/10/2019 11:27:31 AM Referred By: Newton Phillips Confirmed By:TONI MAGALLON MD
--- NOTE | 2019-06-08 13:03 | ED.VIS.DYS ---
History of Present Illness Chief Complaint: Cough Informant: Patient Onset: Days - 10 Timing: Continuous Quality: Dyspnea on exertion, Wheezing Associated Symptoms: Cough. Negative for: Green sputum, Post-nasal drainage, Rhinorrhea, Sore throat Chest Pain: None Narrative: Patient is an 79 year old female with extensive past medical history including COPD, HTN, aortic dissection, and HLD presenting with worsening shortness of breath. Patient states that she has had a cough for the past 10 days. It has been nonproductive. She was placed on a 10 day course of Cefdiner by her PCP as well as a medrol dose pack. She finished the antibiotics 2 days ago and the steroids 1 week ago. Today her shortness of breath significantly worsened. She also developed a fever. She was 89% on room air when she arrived. Patient does not wear O2 at baseline. Past Medical History - Allergies and Home Meds Allergies/Adverse Reactions: Allergies bisoprolol Allergy (Verified 06/08/19 11:30) Unknown levofloxacin [From Levaquin] Allergy (Verified 06/08/19 11:30) Unknown meloxicam Allergy (Verified 06/08/19 11:30) Unknown Sulfa (Sulfonamide Antibiotics) Allergy (Verified 06/08/19 11:30) Unknown CODEINE COUGH SYRUP Adverse Reaction (Uncoded 06/08/19 11:30) Other BP ELEVATION. PT STATES ABLE TO TAKE PAIN MEDS WITH CODEINE WITHOUT TROUBLES Past Medical History: - - COPD, HTN, aortic dissection, HLD, cystocele, rectocele, DARRIUS Surgical History: - - Lumbar laminectomy/fusion 2013 Right carpal tunnel release Right total knee arthroplasty Left total hip arthroplasty, s/p revision lumbar laminectomy revision 04/25/17 Lives: Spouse/ Significant Other Smoking Status: Former smoker - Family History Maternal Family History: Family History (Last Reviewed 06/08/19 @ 16:34 by Newton Phillips DO) Mother CAD (coronary artery disease) Daughter Breast cancer Sister Breast cancer Father Brain aneurysm Family History: Reports: No pertinent history Paternal Family History: Family History (Last Reviewed 06/08/19 @ 16:34 by Newton Phillips DO) Mother CAD (coronary artery disease) Daughter Breast cancer Sister Breast cancer Father Brain aneurysm Family History: Reports: No pertinent history Review of Systems General: Reports: Chills, Fever, Malaise. Denies: Sweats Eyes: Denies: Visual changes - bilaterally, Diplopia ENT: Denies: Rhinorrhea, Sore throat Cardiovascular: Denies: Chest pain, Palpitations Respiratory: Reports: Dyspnea, Cough. Denies: Sputum, Dyspnea on exertion Gastrointestinal: Denies: Abdominal pain, Nausea, Vomiting, Diarrhea, Melena, Hematochezia Genitourinary: Denies: Dysuria, Hematuria, Frequency Musculoskeletal: Denies: Back pain, Extremity Pain Skin: Denies: Rash, Wounds Neurological: Reports: Headache. Denies: Weakness, Numbness Physical Exam Vital Signs/Narrative: Vital Signs Temp Pulse Resp BP Pulse Ox 06/08/19 12:05 101.2 F H 76 28 H 125/72 H 94 06/08/19 11:30 101.3 F H 83 30 H 116/59 L 90 Inital Vital Signs reviewed: Yes General: Well nourished, Well developed, No Acute Distress Head: Normocephalic, Atraumatic Eyes: Perrl, EOMI ENT: Moist mucous membranes, No rhinorrhea Neck: Supple, Nontender, No JVD Cardiovascular: Regular rate, Regular rhythm, No murmurs Respiratory: No distress, Chest nontender, Rhonchi - bases, Wheezing, Decreased Air Movement. Negative for: Retractions Abdomen: Soft, Nontender, Nondistended, Normal bowel sounds Back: Nontender, Normal Inspection Extremities: Nontender, No edema Skin: Normal color, No rash Neurological: Alert, Oriented x3, Cranial nerves II-XII grossly intact, Normal Strength, Normal Sensation Psychological: Normal affect, Normal Mood Diagnostic/Tx/Re-eval Chest X-Ray - ED: 2 View, Read by ED Physician, Read by Radiologist, Right Infiltrate Clinical Impression(s) from Imaging Studies Chest X-Ray 06/08/19 13:42 IMPRESSION: Bilateral hilar adenopathy with patchy changes involving both bases new since the last study. Electronically Signed: Maci Cantor, at 14:37 EST Tel , Service support , Laboratory Data 06/08/19 06/08/19 06/08/19 12:00 12:00 12:00 WBC 16.3 H RBC 3.57 L Hgb 11.5 L Hct 34.9 L MCV 97.8 MCH 32.2 H MCHC 33.0 RDW Std Deviation 53.7 H RDW Coeff of Tom 14.8 H Plt Count 250 MPV 9.0 Immature Gran % (Auto) 3.100 H Neut % (Auto) 78.8 H Lymph % (Auto) 8.0 L Arroyo % (Auto) 9.1 Eos % (Auto) 0.4 Baso % (Auto) 0.6 Absolute Neuts (auto) 12.9 H Absolute Lymphs (auto) 1.30 Nucleated RBC % 0 PT 12.6 INR 1.0 APTT 22.9 L Sodium 142 Potassium 3.4 L Chloride 111 H Carbon Dioxide 23.0 Anion Gap 8 BUN 29 H Creatinine 1.51 H Estim Creat Clear Calc 26.29 Est GFR (MDRD) Af Amer 43 L Est GFR (MDRD) Non-Af 35 L BUN/Creatinine Ratio 19.2 Glucose 94 Lactic Acid Calcium 8.7 Total Bilirubin 0.50 AST 20 ALT 30 Alkaline Phosphatase 72 Total Protein 6.9 Albumin 2.9 L Globulin 4.0 Albumin/Globulin Ratio 0.7 L Urine Color Urine Clarity Urine pH Ur Specific [place] Urine Protein Urine Glucose (UA) Urine Ketones Urine Occult Blood Urine Nitrite Urine Bilirubin Urine Urobilinogen Ur Leukocyte Esterase Urine RBC Urine WBC Ur Squamous Epith Cells Urine Bacteria Urine Mucus 06/08/19 06/08/19 12:00 14:30 WBC RBC Hgb Hct MCV MCH MCHC RDW Std Deviation RDW Coeff of Tom Plt Count MPV Immature Gran % (Auto) Neut % (Auto) Lymph % (Auto) Arroyo % (Auto) Eos % (Auto) Baso % (Auto) Absolute Neuts (auto) Absolute Lymphs (auto) Nucleated RBC % PT INR APTT Sodium Potassium Chloride Carbon Dioxide Anion Gap BUN Creatinine Estim Creat Clear Calc Est GFR (MDRD) Af Amer Est GFR (MDRD) Non-Af BUN/Creatinine Ratio Glucose Lactic Acid 1.9 Calcium Total Bilirubin AST ALT Alkaline Phosphatase Total Protein Albumin Globulin Albumin/Globulin Ratio Urine Color Yellow Urine Clarity Clear Urine pH 5.0 Ur Specific Mesa 1.010 Urine Protein Negative Urine Glucose (UA) Normal Urine Ketones Negative Urine Occult Blood Negative Urine Nitrite Negative Urine Bilirubin Negative Urine Urobilinogen Normal Ur Leukocyte Esterase Negative Urine RBC 0 SEEN Urine WBC 0 SEEN Ur Squamous Epith Cells 0-5 SEEN Urine Bacteria 0 SEEN Urine Mucus 0 SEEN - Rhythm Strip Rhythm Strip: Sinus Rhythm Rate: 63 Ectopy: None - EKG Initial EKG Interpretation: Sinus Rhythm, - - Normal sinus rhythm at a rate of 63Normal intervalsNormal ST segmentsNormal axisNo significant change compared to prior EKG on 12/13/2017 Treatment - Dyspnea: Oxygen, Albuterol, Atrovent, Antibiotics, Steroid Repeat Evaluation: Improved - Medical Decision Making Patient is evaluated for fever and worsening shortness of breath. She is acutely hypoxic and requiring 4L NC. She does not wear O2 at home. She is wheezing so she is given aerosols and solumedrol. Patient has a leukocytosis, but is not clear if it is from her recent steroids or elevated due to infection. Lactate is normal. Creatine is elevated but at her baseline. Patient has multilobar pneumonia on CXR which fits her clinical picture. As she just completed a 10 day course of Cefdinir 2 days ago, she is placed on broad spectrum antibiotics (Vanc/Zosyn). She is admitted to medicine for further respiratory monitoring and treatment. She is agreeable with this plan. ED Disposition - Plan for ED Patient: Disposition: Acute Care Hospital [facility] Diagnosis: Pneumonia, COPD exacerbation, Hypoxia
[2019-06-08 13:17] LABS: Absolute Neutrophil Count 12.9 X10^3/uL (2.0-7.7); Basophil# 0.09 X10^3/uL; Basophil% 0.6 % (0-1); Eosinophil# 0.07 X10^3/uL; Eosinophils% 0.4 % (0-5); Hematocrit 34.9 % (37-47); Hemoglobin 11.5 g/dL (12.0-15.0); Mean Corpuscular Hgb 32.2 pg (27.0-32.0); Mean Corpuscular Volume 97.8 fL (81-99); Monocyte# 1.49 X10^3/uL; Monocyte% 9.1 % (0-10); NRBC Flagged by Analyzer 0 % (0-5); Neutrophil # 12.85 X10^3/uL (2.7-7.7); Neutrophil % 78.8 % (47-70); Platelet Count 250 K/mm3 (150-450); RBC Distribution Width CV 14.8 % (11.6-14.6); RBC Distribution Width SD 53.7 fl (35.1-43.9); Red Blood Count 3.57 M/mm3 (4.2-5.4); White Blood Count 16.3 K/mm3 (4.4-11.0)
[2019-06-08 13:20] LABS: Prothrombin Time (Protime)PT. 12.6 SECONDS (11.7-14.9)
[2019-06-08] MEDS: Ipratropium/Albuterol Sulfate 3 ML AMPUL.NEB INHALATION ×2 (13:20→23:43)
[2019-06-08] MEDS: Albuterol 2.5 MG/3 ML VIAL.NEB. INHALATION (13:20)
[2019-06-08 13:21] LABS: Partial Thromboplast Time 22.9 Seconds (24.1-36.2)
[2019-06-08 13:27] LABS: ALB/GLOB Ratio 0.7 RATIO (0.9-2.4); AST(SGOT) 20 U/L (15-37); Alanine Aminotransfer ALT/SGPT 30 U/L (13-56); Albumin, Serum 2.9 g/dL (3.2-5.0); Alkaline Phosphatase 72 U/L (45-117); Anion Gap 8 (5-15); BUN 29 mg/dL (7-18); BUN/Creat Ratio 19.2 RATIO (10-20); Calcium,Total 8.7 mg/dL (8.5-10.1); Chloride 111 mmol/L (98-107); Creatinine, Serum 1.51 mg/dL (0.55-1.02); EST Glomerular Filtration Rate 35 mL/min (>60); Est Glom Filt Rate - Afr Amer 43 mL/min (>60); Estimated Creatinine Clearance 26.29 ml/min; Glucose 94 mg/dL (74-106); Potassium 3.4 mmol/L (3.5-5.1); Protein, Total 6.9 g/dL (6.4-8.2); Sodium Level 142 mmol/L (136-145)
[2019-06-08 13:29] LABS: Lactic Acid 1.9 mmol/L (0.4-2.0)
[2019-06-08] MEDS: MethylPREDNISolone 125 MG/2 ML Vial IV (13:29)
[2019-06-08] MEDS: Acetaminophen 325 MG Tablet 650 MG PO (13:29)
--- NOTE | 2019-06-08 13:42 | RAD_ITS ---
STUDY: X-RAY CHEST REASON FOR EXAM: Female, 79 years old. TECHNIQUE: 2 views COMPARISON: November 28, 2018. FINDINGS: There are patchy changes involving both bases a new finding since the previous examination. The upper lung doherty are otherwise clear. There are enlarged hilar lymph nodes. This are more prominent than before. Aortic stent is seen from the midportion of the arch down to the level of diaphragm. No pleural effusion or pneumothorax identified. There are hardware transfixing the thoracolumbar spine. RAD/Chest PA and Lateral IMPRESSION: Bilateral hilar adenopathy with patchy changes involving both bases new since the last study. Electronically Signed: Maci Cantor, at 14:37 EST Tel , Service support ,
[2019-06-08 14:43] LABS: Bacteria 0 SEEN /hpf (None Seen); Mucous, Urine 0 SEEN /hpf (<or=2+); Red Blood Cells-Urine 0 SEEN /hpf (0-5); White Blood Cells 0 SEEN /hpf (0-5)
[2019-06-08 14:52] LABS: Color, Urine Yellow (Yellow); Glucose, Dipstick Normal (Normal); Ketone-Dipstick Negative (Negative); Leukocyte Esterase-Dipstick Negative /ul (Negative); Nitrite-Dipstick Negative (Negative); Occult Blood-Urine Negative /ul (Negative); Protein-Dipstick Negative (Negative); Urine Bilirubin Dipstick Negative (Negative); Urine Clarity Clear (Clear); Urine Urobilinogen Normal (Normal)
[2019-06-08 15:03] LABS: Squamous Epithelial Cells - UA 0-5 SEEN /hpf (5-10)
--- NOTE | 2019-06-08 15:27 | HP.PCM_ITS ---
<Marzena Reyes - Last Filed: 06/08/19 15:56> Problem List (1) Abdominal mass Status: Chronic Comment: check cbc cmp amylase lipase tsh free t4 ca [address] abdomen pelvis (2) Abdominal distension Status: Chronic Comment: check labs and imaging (3) Dissection of thoracic aorta Status: Chronic Comment: Status post TEVAR on 09/04/2018 at [facility] (4) Stage 1 mild COPD by GOLD classification Status: Chronic (5) History of stent insertion of renal artery Status: Chronic Comment: Bilateral 07/30/18 @ [facility] (6) Pulmonary hypertension Status: Acute Comment: RVSP 53 mmHg (7) Bilateral carotid bruits Status: Acute (8) Incontinence Status: Chronic Qualifiers: Incontinence type: urinary Urinary Incontinence type: mixed stress and urge incontinence Qualified Code(s): N39.46 - Mixed incontinence (9) Bradycardia Status: Chronic (10) Renal artery stenosis Status: Chronic Comment: Status post bilateral renal artery stenting on 07/30/2018 at [facility]; (11) Peripheral vascular disease Status: Chronic (12) Hyperlipemia, mixed Status: Chronic (13) Nonrheumatic mitral valve insufficiency Status: Chronic (14) Nonrheumatic aortic valve stenosis Status: Chronic (15) Essential (primary) hypertension Status: Chronic (16) GERD (gastroesophageal reflux disease) Status: Chronic Qualifiers: Esophagitis presence: without esophagitis Qualified Code(s): K21.9 - Gastro-esophageal reflux disease without esophagitis (17) DARRIUS (obstructive sleep apnea) Status: Chronic Comment: BiPAP 14/10 centimeters of water (18) 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 Comment: Status post R CHOP ?6 and maintenance rituximab ?5 years, now in remission (19) Nonhealing surgical wound Status: Resolved Qualifiers: Encounter type: subsequent encounter Qualified Code(s): T81.89XD - Other complications of procedures, not elsewhere classified, subsequent encounter (20) Wound dehiscence, surgical Status: Resolved Qualifiers: Encounter type: subsequent encounter Qualified Code(s): T81.31XD - Disruption of external operation (surgical) wound, not elsewhere classified, subsequent encounter (21) Wound, open, back Status: Resolved Qualifiers: Encounter type: subsequent encounter Laterality: unspecified laterality Qualified Code(s): S21.209D - Unspecified open wound of unspecified back wall of thorax without penetration into thoracic cavity, subsequent encounter History of Present Illness Date of Admission: 06/08/19 Chief Complaint: Shortness of breath, fever, cough. The patient is a 79 year old F who presents emergency room due to shortness of breath, fever and cough. Patient reports her symptoms have been ongoing for 10 days. Her breathing became much worse last evening. She reports her has had an upper respiratory infection for the past month. She recently completed 10-day course of cefdinir and prednisone however her symptoms have not improved. Patient reports she has been following with PSYCHIATRIC REGISTERED NURSE for abdominal distention. She denies abdominal pain or change in bowel habits. She reports her stomach has been distended for the past 2 years and is not worse from her baseline. She has a past medical history of hypertension, hyperlipidemia, DARRIUS, history of diffuse large cell lymphoma in remission, mild COPD, aortic diss ection, GERD. Past Medical History Past Medical History (Chronic Problems): Chronic Problems (Last Reviewed 06/04/19 @ 12:56 by Keri Covarrubias) COPD exacerbation (Chronic) Abdominal mass (Chronic) check cbc cmp amylase lipase tsh free t4 ca [address] abdomen pelvis Abdominal distension (Chronic) check labs and imaging Dissection of thoracic aorta (Chronic ~09/04/18) Status post TEVAR on 09/04/2018 at [facility] Stage 1 mild COPD by GOLD classification (Chronic) History of stent insertion of renal artery (Chronic ~07/30/18) Bilateral 07/30/18 @ [facility] Incontinence (Chronic) Bradycardia (Chronic) Renal artery stenosis (Chronic) Status post bilateral renal artery stenting on 07/30/2018 at [facility]; Peripheral vascular disease (Chronic) Hyperlipemia, mixed (Chronic) Nonrheumatic mitral valve insufficiency (Chronic) Nonrheumatic aortic valve stenosis (Chronic) Essential (primary) hypertension (Chronic) GERD (gastroesophageal reflux disease) (Chronic) DARRIUS (obstructive sleep apnea) (Chronic) BiPAP 14/10 centimeters of water 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) Status post R CHOP ?6 and maintenance rituximab ?5 years, now in remission Medical History: Medical History (Last Reviewed 06/04/19 @ 12:56 by Keri Covarrubias) Dissection of thoracic aorta (Acute) Onset Date: ~09/04/18 I71.01 Status post TEVAR on 09/04/2018 at [facility] History of stent insertion of renal artery (Chronic) Onset Date: ~07/30/18 Z98.890 Bilateral 07/30/18 @ [facility] Bilateral carotid bruits (Acute) R09.89 Incontinence (Chronic) R32 Bradycardia (Chronic) R00.1 Renal artery stenosis (Chronic) I70.1 Status post bilateral renal artery stenting on 07/30/2018 at [facility]; Peripheral vascular disease (Chronic) I73.9 Hyperlipemia, mixed (Chronic) E78.2 Nonrheumatic mitral valve insufficiency (Chronic) I34.0 Nonrheumatic aortic valve stenosis (Chronic) I35.0 Essential (primary) hypertension (Chronic) I10 GERD (gastroesophageal reflux disease) (Chronic) K21.9 DARRIUS (obstructive sleep apnea) (Chronic) G47.33 BiPAP 14/10 centimeters of water 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) Z85.72 Status post R CHOP ?6 and maintenance rituximab ?5 years, now in remission Nonhealing surgical wound (Chronic) T81.89XA Wound dehiscence, surgical (Chronic) Wound, open, back (Chronic) S21.209A Postlaminectomy syndrome M96.1 Status post T12, ileum fusion and L2, 3 decompression with drain placement on T12016 at [facility] Status post lumbar laminectomy fusion 2014 complicated by postlaminectomy syndrome Carotid bruit R09.89 History of deep venous thrombosis (DVT) of distal vein of right lower extremity Z86.718 Provoked in the setting of foot surgery, status post 6 months NOAC Allergies bisoprolol Allergy (Verified 06/08/19 11:30) Unknown levofloxacin [From Levaquin] Allergy (Verified 06/08/19 11:30) Unknown meloxicam Allergy (Verified 06/08/19 11:30) Unknown Sulfa (Sulfonamide Antibiotics) Allergy (Verified 06/08/19 11:30) Unknown CODEINE COUGH SYRUP Adverse Reaction (Uncoded 06/08/19 11:30) Other BP ELEVATION. PT STATES ABLE TO TAKE PAIN MEDS WITH CODEINE WITHOUT TROUBLES Home Medications: Ambulatory Orders Medication Instructions Recorded Alendronate Sodium [Fosamax] 70 mg PO PATINO 02/28/15 Multivitamins,Ther W-Minerals 1 tab PO DAILY 02/28/15 [Multivitamin With Minerals] biotin 10,000 mcg capsule 10,000 mcg PO TID cap 11/06/17 aspirin 81 mg tablet,delayed 81 mg PO DAILY 08/13/18 release clonidine HCl 0.3 mg tablet 0.3 mg PO TID tab 08/13/18 docusate sodium 100 mg tablet 100 mg PO DAILY 08/13/18 glucosamine 500 1 cap PO BID cap 08/13/18 av-fgypvpudn-enyaslnp comp 400 mg-D3 667 unit-C-Mn cap hydralazine 100 mg tablet 100 mg PO Q6H tab 08/13/18 labetalol 200 mg tablet 300 mg PO TID tab 08/13/18 nifedipine ER 90 mg 90 mg PO BID tab 08/13/18 tablet,extended release omega-3 fatty acids 1,000 mg 2,000 mg PO TID 08/13/18 capsule lorazepam 0.5 mg tablet 0.5 mg PO QHS PRN 10/06/18 lisinopril 10 mg tablet 10 mg PO DAILY@1200 12/01/18 vitamin B complex tablet 1 tab PO DAILY 12/01/18 Cyanocobalamin (Vitamin B-12) 5,000 mcg PO DAILY 06/08/19 [Vitamin B-12] Methylcellulose (with Sugar) 850 gm PO BID 06/08/19 [Citrucel Powder] Omeprazole 20 mg PO DAILY@1200 06/08/19 Surgical History: Surgical History (Last Reviewed 06/08/19 @ 15:52 by Marzena Reyes, ADAM-C) History of bunionectomy of right great toe Z98.890 History of left hip replacement Z96.642 History of partial hysterectomy Z98.890, Z90.710 [facility]A History of carpal tunnel release Z98.890 right hand, 08/2015 History of left knee replacement Z96.652 12/2017 Previous back surgery Z98.890 04/2017, redid previous fusion (S1-S4) and fused S1-T12, Dr. Aleksandar Moore at [facility] S/P lumbar fusion Z98.1 Status post right knee replacement Z96.651 Surgical History: - - Lumbar laminectomy/fusion 2013 Right carpal tunnel release Right total knee arthroplasty Left total hip arthroplasty, s/p revision lumbar laminectomy revision 04/25/17 Psychiatric History: No pertinent psych hx [employer] CHIEF History: No pertinent [employer] CHIE[employer] history Lives: Spouse/ Significant Other Smoking Status: Former smoker Alcohol: None Drugs: None - *Family History Maternal Family History: Family History (Last Reviewed 06/04/19 @ 12:56 by Keri Covarrubias) Mother CAD (coronary artery disease) Daughter Breast cancer Sister Breast cancer Father Brain aneurysm History Items: Hypertension Paternal Family History: Family History (Last Reviewed 06/04/19 @ 12:56 by Keri Covarrubias) Mother CAD (coronary artery disease) Daughter Breast cancer Sister Breast cancer Father Brain aneurysm History Items: Heart Disease Review of Systems Constitutional: Reports: Chills, Fever, Malaise HEENT: Denies: Head Aches, Sinus Congestion, Sinus Drainage Cardiovascular: Denies: Chest Pain, Edema, Palpitations, Syncope Respiratory: Reports: Cough, Shortness of Breath, Wheezing. Denies: Sputum production Gastrointestinal: Reports: - - Abdominal distention. Denies: Abdominal Pain, Nausea, Vomiting Genitourinary: Denies: Dysuria Musculoskeletal: Denies: Joint Pain, Joint Tenderness Skin: Denies: Rash, Wounds Neurological: Denies: Numbness, Tingling, Focal weakness Psychiatric: Denies: Anxiety, Depression, Homicidal Ideations, Suicidal Ideations Hematologic/ Lymphatic: Denies: Easy Bruising, Easy Bleeding VTE Information - Inpt Only VTE Present on Admission: No VTE Mechan Device Prophylaxis: None VTE Pharm Prophylaxis ordered?: Yes Patient Problems: Active and Suspected Problems (Last Reviewed 06/04/19 @ 12:56 by Keri Covarrubias) Pneumonia (Acute) - Physical Exam Vitals/I&O's: Vital Signs Temp Pulse Resp BP Pulse Ox 100.9 F H 68 25 H 128/59 H 94 06/08/19 15:00 06/08/19 15:00 06/08/19 15:00 06/08/19 15:00 06/08/19 15:00 Oxygen Flow Rate (L/min) 3 Oxygen Delivery Method Nasal Cannula Weight: 146 lb Body Mass Index (BMI) 24.3 General: Alert, Oriented x3, Cooperative HEENT: Atraumatic, PERRLA, EOMI, Normocephalic Oral: Dry Mucosa Neck: Supple, No JVD, Negative Carotid Bruits Lungs: Diminished, Rhonchi, Wheezes Cardiovascular: Regular rate, Regular Rhythm, Normal S1, Normal S2, No murmurs Abdomen: Bowel Sounds Present, Soft, Non Tender, Distended Extremities: No clubbing, No cyanosis, No edema, Capillary Refill Less than 3 Seconds Skin: No rashes, No breakdown Musculoskeletal: No Tenderness to Palpation of Joints or Extremities Neurological: Cranial nerves II-XII grossly intact, Neuro grossly intact Psych/Mental Status: Normal Affect, Appropriate Microbiology Past 72 Hours 06/08/19 14:00 Mucosa - Nose Influenza Types A,B Direct FA (MONIE) - Final Laboratory Results 06/08/19 12:00: WBC 16.3 H, RBC 3.57 L, Hgb 11.5 L, Hct 34.9 L, MCV 97.8, MCH 32.2 H, MCHC 33.0, RDW Std Deviation 53.7 H, RDW Coeff of Tom 14.8 H, Plt Count 250, MPV 9.0, Immature Gran % (Auto) 3.100 H, Neut % (Auto) 78.8 H, Lymph % (Auto) 8.0 L, [place] % (Auto) 9.1, Eos % (Auto) 0.4, Baso % (Auto) 0.6, Absolute Neuts (auto) 12.9 H, Absolute Lymphs (auto) 1.30, Nucleated RBC % 0 06/08/19 12:00: PT 12.6, INR 1.0, APTT 22.9 L 06/08/19 12:00: Sodium 142, Potassium 3.4 L, Chloride 111 H, Carbon Dioxide 23.0, Anion Gap 8, BUN 29 H, Creatinine 1.51 H, Estim Creat Clear Calc 26.29, Est GFR (MDRD) Af Amer 43 L, Est GFR (MDRD) Non-Af 35 L, BUN/Creatinine Ratio 19.2, Glucose 94, Calcium 8.7, Total Bilirubin 0.50, AST 20, ALT 30, Alkaline Phosphatase 72, Total Protein 6.9, Albumin 2.9 L, Globulin 4.0, Albumin/Globulin Ratio 0.7 L 06/08/19 12:00: Lactic Acid 1.9 06/08/19 14:30: Urine Color Yellow, Urine Clarity Clear, Urine pH 5.0, Ur Specific [place] 1.010, Urine Protein Negative, Urine Glucose (UA) Normal, Urine Ketones Negative, Urine Occult Blood Negative, Urine Nitrite Negative, Urine Bilirubin Negative, Urine Urobilinogen Normal, Ur Leukocyte Esterase Negative, Urine RBC 0 SEEN, Urine WBC 0 SEEN, Ur Squamous Epith Cells 0-5 SEEN, Urine Bacteria 0 SEEN, Urine Mucus 0 SEEN Current Medications Piperacillin Sod/Tazobactam (Sod 3.375 gm/ Sodium Chloride) 50 mls @ 100 mls/hr IV X1 ONE Stop: 06/08/19 15:28 Vancomycin HCl (Vancomycin) 1,000 mg in 200 mls @ 200 mls/hr IV X1 ONE Stop: 06/08/19 16:29 Assessment/Plan All Active Problems (Last Reviewed 06/04/19 @ 12:56 by Keri Covarrubias) Pneumonia (Acute) Pulmonary hypertension (Acute) Bilateral carotid bruits (Acute) Nonhealing surgical wound (Resolved) Wound dehiscence, surgical (Resolved) Wound, open, back (Resolved) 1. Acute sepsis secondary to community acquired pneumonia and exacerbation of COPD with associated acute hypoxic respiratory insufficiency-chest x-ray admission demonstrated bilateral pneumonia. IV azithromycin and IV Rocephin. Albuterol and DuoNeb aerosols. Check urine for strep and Legionella. Send sputum for culture. Blood cultures drawn in ER. Continue supplement oxygen to maintain O2 at or above 90%. Check respiratory panel. IV Solu-Medrol. 2. Abdominal distention-undergoing evaluation by PSYCHIATRIC REGISTERED NURSE. 3. Hypertension-stable, continue nifedipine, lisinopril, hydralazine, clonidine regimen. 4. Hyperlipidemia-continue statin. 5. Chronic kidney disease stage III-slightly above baseline, no acute kidney injury. IV fluids, trend BMP. 6. GERD-continue omeprazole regimen. 7. Osteoporosis-on Fosamax. 8. History of diffuse large cell lymphoma-In remission. 9. DARRIUS-continue home BiPAP regimen. 10. History of thoracic aortic dissection DVT prophylaxis-Lovenox subcu This patient was seen by KELLIE Escalera under the supervision of Dr. Phillips. <Newton Phillips - Last Filed: 06/08/19 16:42> Problem List (1) Pneumonia Status: Acute Qualifiers: Pneumonia type: due to unspecified organism Laterality: right Lung location: lower lobe of lung Qualified Code(s): J18.9 - Pneumonia, unspecified organism (2) COPD exacerbation Status: Chronic History of Present Illness The patient is a 79 year old F resents with a 1 day history of shortness of breath. Patient has been coughing for a month. Patient explained to the course of Ceftin ear as well as prednisone and not getting better but felt more short of breath this morning. Presented to the emergency room and had chest x-ray that showed infiltrates. [] Past Medical History Medical History: Medical History (Last Reviewed 06/08/19 @ 16:34 by Newton Phillips DO) Dissection of thoracic aorta (Chronic) Onset Date: ~09/04/18 I71.01 Status post TEVAR on 09/04/2018 at [facility] History of stent insertion of renal artery (Chronic) Onset Date: ~07/30/18 Z98.890 Bilateral 07/30/18 @ [facility] Bilateral carotid bruits (Acute) R09.89 Incontinence (Chronic) R32 Bradycardia (Chronic) R00.1 Renal artery stenosis (Chronic) I70.1 Status post bilateral renal artery stenting on 07/30/2018 at [facility]; Peripheral vascular disease (Chronic) I73.9 Hyperlipemia, mixed (Chronic) E78.2 Nonrheumatic mitral valve insufficiency (Chronic) I34.0 Nonrheumatic aortic valve stenosis (Chronic) I35.0 Essential (primary) hypertension (Chronic) I10 GERD (gastroesophageal reflux disease) (Chronic) K21.9 DARRIUS (obstructive sleep apnea) (Chronic) G47.33 BiPAP 14/10 centimeters of water 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) Z85.72 Status post R CHOP ?6 and maintenance rituximab ?5 years, now in remission Postlaminectomy syndrome M96.1 Status post T12, ileum fusion and L2, 3 decompression with drain placement on T12016 at [facility] Status post lumbar laminectomy fusion 2014 complicated by postlaminectomy syndrome Carotid bruit R09.89 History of deep venous thrombosis (DVT) of distal vein of right lower extremity Z86.718 Provoked in the setting of foot surgery, status post 6 months NOAC Nonhealing surgical wound (Resolved) T81.89XA Wound dehiscence, surgical (Resolved) Wound, open, back (Resolved) S21.209A Allergies bisoprolol Allergy (Verified 06/08/19 11:30) Unknown levofloxacin [From Levaquin] Allergy (Verified 06/08/19 11:30) Unknown meloxicam Allergy (Verified 06/08/19 11:30) Unknown Sulfa (Sulfonamide Antibiotics) Allergy (Verified 06/08/19 11:30) Unknown CODEINE COUGH SYRUP Adverse Reaction (Uncoded 06/08/19 11:30) Other BP ELEVATION. PT STATES ABLE TO TAKE PAIN MEDS WITH CODEINE WITHOUT TROUBLES Surgical History: Surgical History (Last Reviewed 06/08/19 @ 16:34 by Newton Phillips DO) History of bunionectomy of right great toe Z98.890 History of left hip replacement Z96.642 History of partial hysterectomy Z98.890, Z90.710 [facility]MEN[place]A History of carpal tunnel release Z98.890 right hand, 08/2015 History of left knee replacement Z96.652 12/2017 Previous back surgery Z98.890 04/2017, redid previous fusion (S1-S4) and fused S1-T12, Dr. Aleksandar Moore at [facility] S/P lumbar fusion Z98.1 Status post right knee replacement Z96.651 Surgical History: - Psychiatric History: No pertinent psych hx [employer] CHIEF History: No pertinent [employer]OOKB[employer] CHIEF history Lives: Spouse/ Significant Other Smoking Status: Former smoker Alcohol: None Drugs: None - *Family History Maternal Family History: Family History (Last Reviewed 06/08/19 @ 16:34 by Newton Phillips DO) Mother CAD (coronary artery disease) Daughter Breast cancer Sister Breast cancer Father Brain aneurysm Paternal Family History: Family History (Last Reviewed 06/08/19 @ 16:34 by Newton Phillips DO) Mother CAD (coronary artery disease) Daughter Breast cancer Sister Breast cancer Father Brain aneurysm Review of Systems Constitutional: Reports: Chills, Fever. Denies: Malaise HEENT: Denies: Head Aches, Sinus Congestion, Sinus Drainage Cardiovascular: Denies: Chest Pain, Edema, Palpitations, Syncope Respiratory: Reports: Cough, Shortness of Breath, Wheezing. Denies: Sputum production Gastrointestinal: Reports: -. Denies: Abdominal Pain, Nausea, Vomiting Genitourinary: Denies: Dysuria Musculoskeletal: Denies: Joint Pain, Joint Tenderness Skin: Denies: Rash, Wounds Neurological: Denies: Focal weakness, Numbness, Tingling Psychiatric: Denies: Anxiety, Depression, Homicidal Ideations, Suicidal Ideations Hematologic/ Lymphatic: Denies: Easy Bruising, Easy Bleeding Comment: All review systems otherwise negative except for as mentioned above and in HPI. VTE Information - Inpt Only VTE Present on Admission: No VTE Mechan Device Prophylaxis: None VTE Pharm Prophylaxis ordered?: Yes - Physical Exam Vitals/I&O's: Vital Signs Temp Pulse Resp BP Pulse Ox 38.3 C H 68 25 H 128/59 H 94 06/08/19 15:00 06/08/19 15:00 06/08/19 15:00 06/08/19 15:00 06/08/19 15:00 Oxygen Flow Rate (L/min) 3 Oxygen Delivery Method Nasal Cannula Weight: 66.224 kg Body Mass Index (BMI) 24.3 Intake and Output for Last 24 Hours 06/06/19 06/07/19 06/08/19 23:59 23:59 23:59 Intake Total 50 / 50 Balance 50 / 50 General: Alert, Oriented x3, Cooperative, - - On oxygen. No conversational dyspnea. No respiratory distress. HEENT: Atraumatic, Normocephalic Oral: Dry Mucosa Neck: No Nodes, Trachea Midline Lungs: Diminished, Rhonchi, Wheezes Cardiovascular: Regular rate, Regular Rhythm, Normal S1, Normal S2, No murmurs Abdomen: Bowel Sounds Present, Soft, Non Tender, Non-Distended Extremities: No edema, No Calf Tenderness Skin: No rashes, No breakdown Neurological: Muscle tone normal, Coordination normal Psych/Mental Status: Normal Affect, Appropriate Microbiology Past 72 Hours 06/08/19 14:00 Mucosa - Nose Influenza Types A,B Direct FA (MONIE) - Final Laboratory Results 06/08/19 12:00: WBC 16.3 H, RBC 3.57 L, Hgb 11.5 L, Hct 34.9 L, MCV 97.8, MCH 32.2 H, MCHC 33.0, RDW Std Deviation 53.7 H, RDW Coeff of Tom 14.8 H, Plt Count 250, MPV 9.0, Immature Gran % (Auto) 3.100 H, Neut % (Auto) 78.8 H, Lymph % (Auto) 8.0 L, [place] % (Auto) 9.1, Eos % (Auto) 0.4, Baso % (Auto) 0.6, Absolute Neuts (auto) 12.9 H, Absolute Lymphs (auto) 1.30, Nucleated RBC % 0 06/08/19 12:00: PT 12.6, INR 1.0, APTT 22.9 L 06/08/19 12:00: Sodium 142, Potassium 3.4 L, Chloride 111 H, Carbon Dioxide 23.0, Anion Gap 8, BUN 29 H, Creatinine 1.51 H, Estim Creat Clear Calc 26.29, Est GFR (MDRD) Af Amer 43 L, Est GFR (MDRD) Non-Af 35 L, BUN/Creatinine Ratio 19.2, Glucose 94, Calcium 8.7, Total Bilirubin 0.50, AST 20, ALT 30, Alkaline Phosphatase 72, Total Protein 6.9, Albumin 2.9 L, Globulin 4.0, Albumin/Globulin Ratio 0.7 L 06/08/19 12:00: Lactic Acid 1.9 06/08/19 14:30: Urine Color Yellow, Urine Clarity Clear, Urine pH 5.0, Ur Specific [place] 1.010, Urine Protein Negative, Urine Glucose (UA) Normal, Urine Ketones Negative, Urine Occult Blood Negative, Urine Nitrite Negative, Urine Bilirubin Negative, Urine Urobilinogen Normal, Ur Leukocyte Esterase Negative, Urine RBC 0 SEEN, Urine WBC 0 SEEN, Ur Squamous Epith Cells 0-5 SEEN, Urine Bacteria 0 SEEN, Urine Mucus 0 SEEN Chest x-ray reviewed and showed right pulmonary infiltrates. Assessment/Plan Patient seen and examined independently. Data reviewed. I agree with the above note by the nurse practitioner. Assessment: 1. Sepsis, present on admission: Met 3 of 4 Sirs criteria 2. Suspected pneumococcal pneumonia 3. Acute exacerbation of COPD 4. Abdominal distention, chronic 5. CKD 3 stable Plan: 1. Patient received vancomycin and Pipracil and/tazobactam in the emergency room. Patient has not been hospitalized. Patient did receive antibiotics as outpatient but we will treat her with azithromycin and ceftriaxone. 2. For COPD, patient will be on bronchodilators as well as methylprednisolone. 3. On oxygen, wean as tolerated. If patient still requiring oxygen when she is ready for discharge, check an amatory pulse ox to see if she would qualify for home oxygen. 4. Patient has been following with Dr. Bassett for the abdominal distention. On the , patient had a Ca1 25 and CEA performed, results of which are still pending. Patient states that she had a colonoscopy about 5 years ago that was normal but had something that was removed but apparently was not cancerous. 5. We will request records from Dr. Hamilton's office who performed the test. Patient is not sure about the follow-up offhand. Addressed CODE STATUS with the patient. Patient wishes to be full CODE STATUS and is okay with intubation for short-term purposes. 6. Check urinary antigens for Streptococcus Legionella. Check sputum culture. Respiratory viral panel. Code Visit Inpatient E&M: [id number] Init Hosp L3
--- NOTE | 2019-06-08 15:32 | NURSING ---
MED SURG JOPPERI PNEUMONIA, COPD EXAC
[2019-06-08] MEDS: Vancomycin IV 1,000 MG/200 ML BAG 200 MG IV (16:19)
[2019-06-08] MEDS: hydrALAZINE 50 MG Tablet 100 MG PO ×2 (18:26→23:03)
[2019-06-08] MEDS: cloNIDine HCl 0.2 MG Tablet 0.3 MG PO (22:58)
[2019-06-08] MEDS: guaiFENesin 1,200 MG Tablet 1200 MG PO (23:00)
[2019-06-08] MEDS: NIFEdipine 90 MG Tablet PO (23:00)
[2019-06-08] MEDS: Labetalol 200 MG Tablet 300 MG PO (23:01)
[2019-06-08] MEDS: 0.9% Saline Lock 10 ML Syringe IV (23:01)
[2019-06-09] VITALS (17 sets, daily range): BP systolic 109–126; BP diastolic 45–68; PULSE 60–81; RESP 18–20; TEMP 36.3–37.1; O2SAT 88–97
[2019-06-09] MEDS: Pantoprazole Sodium 20 MG Tablet PO ×2 (00:07→12:08)
[2019-06-09] MEDS: LORazepam 0.5 MG Tablet PO ×2 (00:08→21:00)
[2019-06-09 06:18] LABS: Absolute Lymphocyte Count 0.92 X10^3/uL (0.83-4.51); Absolute Neutrophil Count 17.5 X10^3/uL (2.0-7.7); Basophil# 0.05 X10^3/uL; Basophil% 0.3 % (0-1); Eosinophil# 0.13 X10^3/uL; Eosinophils% 0.7 % (0-5); Hematocrit 33.6 % (37-47); Lymphocyte # 0.92 X10^3/ul (4.0); Lymphocyte % 4.6 % (19-41); Mean Corp Hgb Conc 32.7 g/dL (32-36); Mean Corpuscular Volume 97.7 fL (81-99); Mean Platelet Vol. 8.8 fl (6.2-12.0); Monocyte# 0.92 X10^3/uL; Monocyte% 4.6 % (0-10); NRBC Flagged by Analyzer 0 % (0-5); Neutrophil # 17.48 X10^3/uL (2.7-7.7); Neutrophil % 87.5 % (47-70); POSITIVE MORPHOLOGY YES; Platelet Count 231 K/mm3 (150-450); RBC Distribution Width CV 14.9 % (11.6-14.6); RBC Distribution Width SD 53.5 fl (35.1-43.9); Red Blood Count 3.44 M/mm3 (4.2-5.4)
[2019-06-09 06:20] LABS: Differential Indicated SCAN CRITERIA MET
[2019-06-09 06:29] LABS: Anion Gap 9 (5-15); BUN 26 mg/dL (7-18); BUN/Creat Ratio 17.2 RATIO (10-20); Calcium,Total 8.4 mg/dL (8.5-10.1); Chloride 108 mmol/L (98-107); Creatinine, Serum 1.51 mg/dL (0.55-1.02); EST Glomerular Filtration Rate 35 mL/min (>60); Est Glom Filt Rate - Afr Amer 43 mL/min (>60); Estimated Creatinine Clearance 26.29 ml/min; Glucose 147 mg/dL (74-106); Magnesium 2.2 mg/dL (1.6-2.6); Potassium 3.8 mmol/L (3.5-5.1); Sodium Level 139 mmol/L (136-145)
[2019-06-09] MEDS: hydrALAZINE 50 MG Tablet 100 MG PO ×4 (06:40→23:30)
[2019-06-09] MEDS: cloNIDine HCl 0.2 MG Tablet 0.3 MG PO ×3 (06:41→21:00)
[2019-06-09] MEDS: Labetalol 200 MG Tablet 300 MG PO ×3 (06:42→21:00)
[2019-06-09] MEDS: 0.9% Saline Lock 10 ML Syringe IV ×2 (06:43→14:39)
[2019-06-09] MEDS: Enoxaparin 30 MG/0.3 ML Syringe SC (07:37)
[2019-06-09] MEDS: guaiFENesin 1,200 MG Tablet 1200 MG PO ×2 (07:38→21:00)
[2019-06-09] MEDS: Aspirin E.C. 81 MG Tablet PO (07:38)
[2019-06-09] MEDS: Vitamin B Comp W-C Capsule 1 CAP PO (07:38)
[2019-06-09] MEDS: Docusate Sodium 100 MG Capsule PO (07:38)
[2019-06-09] MEDS: Multivitamins,Ther W-Minerals Tablet 1 TABLET PO (07:38)
[2019-06-09] MEDS: NIFEdipine 90 MG Tablet PO ×2 (07:39→21:02)
[2019-06-09] MEDS: Ipratropium/Albuterol Sulfate 3 ML AMPUL.NEB INHALATION ×4 (07:52→19:30)
--- NOTE | 2019-06-09 09:27 | PCM.PROGNOTE ---
<Marzena Reyes - Last Filed: 06/09/19 09:56> Patient Problems: Active and Suspected Problems (Last Reviewed 06/08/19 @ 16:34 by Newton Phillips DO) Pneumonia (Acute) Hypoxia (Acute) Subjective: Patient seen and examined. Reports persistent nonproductive cough. Denies fever, chills overnight. Shortness of breath mildly improved. - Physical Exam Vitals/I&O's: Vital Signs Temp Pulse Resp BP Pulse Ox 97.9 F 66 20 H 126/66 H 97 06/09/19 06:46 06/09/19 07:53 06/09/19 07:53 06/09/19 06:46 06/09/19 06:46 Oxygen Flow Rate (L/min) 3 Oxygen Delivery Method Nasal Cannula Weight: 144 lb Body Mass Index (BMI) 23.9 Intake and Output for Last 24 Hours 06/07/19 06/08/19 06/09/19 23:59 23:59 23:59 Intake Total 400 / 400 655 / 655 Balance 400 / 400 655 / 655 General: Alert, Oriented x3, Cooperative HEENT: Atraumatic, PERRLA, EOMI, Normocephalic Oral: Dry Mucosa Neck: Supple, No JVD, Negative Carotid Bruits Lungs: Diminished, Rhonchi, Wheezes Cardiovascular: Regular rate, Regular Rhythm, Normal S1, Normal S2, No murmurs Abdomen: Bowel Sounds Present, Soft, Non Tender, Non-Distended Extremities: No clubbing, No cyanosis, No edema, Capillary Refill Less than 3 Seconds Skin: No rashes, No breakdown Musculoskeletal: No Tenderness to Palpation of Joints or Extremities Neurological: Cranial nerves II-XII grossly intact, Neuro grossly intact Psych/Mental Status: Normal Affect, Appropriate Microbiology Past 72 Hours 06/08/19 14:30 Urine, Clean Catch Legionella Antigen - Final 06/08/19 14:30 Urine Catheter - Catheter Streptococcus pneumoniae Antigen (M - Final 06/08/19 14:00 Mucosa - Nose Influenza Types A,B Direct FA (MONIE) - Final Laboratory Results 06/08/19 12:00: WBC 16.3 H, RBC 3.57 L, Hgb 11.5 L, Hct 34.9 L, MCV 97.8, MCH 32.2 H, MCHC 33.0, RDW Std Deviation 53.7 H, RDW Coeff of Tom 14.8 H, Plt Count 250, MPV 9.0, Immature Gran % (Auto) 3.100 H, Neut % (Auto) 78.8 H, Lymph % (Auto) 8.0 L, [place] % (Auto) 9.1, Eos % (Auto) 0.4, Baso % (Auto) 0.6, Absolute Neuts (auto) 12.9 H, Absolute Lymphs (auto) 1.30, Nucleated RBC % 0 06/08/19 12:00: PT 12.6, INR 1.0, APTT 22.9 L 06/08/19 12:00: Sodium 142, Potassium 3.4 L, Chloride 111 H, Carbon Dioxide 23.0, Anion Gap 8, BUN 29 H, Creatinine 1.51 H, Estim Creat Clear Calc 26.29, Est GFR (MDRD) Af Amer 43 L, Est GFR (MDRD) Non-Af 35 L, BUN/Creatinine Ratio 19.2, Glucose 94, Calcium 8.7, Total Bilirubin 0.50, AST 20, ALT 30, Alkaline Phosphatase 72, Total Protein 6.9, Albumin 2.9 L, Globulin 4.0, Albumin/Globulin Ratio 0.7 L 06/08/19 12:00: Lactic Acid 1.9 06/08/19 14:30: Urine Color Yellow, Urine Clarity Clear, Urine pH 5.0, Ur Specific [place] 1.010, Urine Protein Negative, Urine Glucose (UA) Normal, Urine Ketones Negative, Urine Occult Blood Negative, Urine Nitrite Negative, Urine Bilirubin Negative, Urine Urobilinogen Normal, Ur Leukocyte Esterase Negative, Urine RBC 0 SEEN, Urine WBC 0 SEEN, Ur Squamous Epith Cells 0-5 SEEN, Urine Bacteria 0 SEEN, Urine Mucus 0 SEEN 06/09/19 05:55: WBC 20.0 H, RBC 3.44 L, Hgb 11.0 L, Hct 33.6 L, MCV 97.7, MCH 32.0, MCHC 32.7, RDW Std Deviation 53.5 H, RDW Coeff of Tom 14.9 H, Plt Count 231, MPV 8.8, Immature Gran % (Auto) 2.300 H, Neut % (Auto) 87.5 H, Lymph % (Auto) 4.6 L, [place] % (Auto) 4.6, Eos % (Auto) 0.7, Baso % (Auto) 0.3, Absolute Neuts (auto) 17.5 H, Absolute Lymphs (auto) 0.92, Nucleated RBC % 0 06/09/19 05:55: Sodium 139, Potassium 3.8, Chloride 108 H, Carbon Dioxide 22.0, Anion Gap 9, BUN 26 H, Creatinine 1.51 H, Estim Creat Clear Calc 26.29, Est GFR (MDRD) Af Amer 43 L, Est GFR (MDRD) Non-Af 35 L, BUN/Creatinine Ratio 17.2, Glucose 147 H, Calcium 8.4 L, Magnesium 2.2 Current Medications Acetaminophen (Tylenol) 650 mg PO Q6H PRN PRN PRN Reason: Pain Score 1-3/Temp > 100.7 F Albuterol Sulfate (Ventolin Aerosols) 2.5 mg INHALATION Q2H PRN PRN PRN Reason: SHORTNESS OF BREATH Albuterol/Ipratropium (Duoneb) 3 ml INHALATION Q4H.RT [facility] Last Admin: 06/09/19 07:52 Dose: 3 ml Documented by: Alendronate Sodium (Fosamax) 70 mg PO PATINO [facility] Aspirin (Ecotrin) 81 mg PO DAILY@0800 [facility] Last Admin: 06/09/19 07:38 Dose: 81 mg Documented by: Clonidine (Catapres) 0.3 mg PO TID [facility] Last Admin: 06/09/19 06:41 Dose: 0.3 mg Documented by: Dextrose (D50w Syringe) 0 gm IV X1 PRN; Protocol PRN Reason: Hypoglycemia Docusate Sodium (Colace) 100 mg PO DAILY [facility] Last Admin: 06/09/19 07:38 Dose: 100 mg Documented by: Enoxaparin Sodium (Lovenox) 30 mg SC DAILY@1000 [facility] Last Admin: 06/09/19 07:37 Dose: 30 mg Documented by: Glucagon () 1 mg IM .X1 PRN PRN Reason: Hypoglycemia Guaifenesin (Mucinex) 1,200 mg PO BID [facility] Last Admin: 06/09/19 07:38 Dose: 1,200 mg Documented by: Hydralazine HCl (Apresoline) 100 mg PO Q6 [facility] Last Admin: 06/09/19 06:40 Dose: 100 mg Documented by: Azithromycin 500 mg/ Dextrose 255 mls @ 250 mls/hr IV Q24H [facility] Last Infusion: 06/09/19 00:07 Dose: Infused Documented by: Ceftriaxone Sodium 2 gm/ (Sodium Chloride) 50 mls @ 100 mls/hr IV Q24@1999 [facility] Last Infusion: 06/08/19 21:06 Dose: Infused Documented by: Labetalol HCl (Trandate) 300 mg PO TID [facility] Last Admin: 06/09/19 06:42 Dose: 300 mg Documented by: Lisinopril (Zestril) 10 mg PO DAILY@1200 [facility] Lorazepam (Ativan) 0.5 mg PO QHS PRN PRN Reason: ANXIETY Last Admin: 06/09/19 00:08 Dose: 0.5 mg Documented by: Methylcellulose (Citrucel) 2 gm PO BID [facility] Methylprednisolone (Solu-Medrol) 40 mg IV Q8 [facility] Last Admin: 06/09/19 06:43 Dose: 40 mg Documented by: Multivitamins (Allbee W/C Caplet, Thera B Comp/C) 1 capsule PO DAILY [facility] Last Admin: 06/09/19 07:38 Dose: 1 capsule Documented by: Multivitamins/Minerals (Multivitamin With Minerals) 1 tablet PO DAILYCM [facility] Last Admin: 06/09/19 07:38 Dose: 1 tablet Documented by: Nifedipine (Procardia Xl) 90 mg PO BID [facility] Last Admin: 06/09/19 07:39 Dose: 90 mg Documented by: Ondansetron HCl (Zofran) 4 mg IV Q8H PRN PRN PRN Reason: NAUSEA/VOMITING Pantoprazole Sodium (Protonix) 20 mg PO DAILY@1200 [facility] Last Admin: 06/09/19 00:07 Dose: 20 mg Documented by: Sodium Chloride () 10 - 40 ml IV UD PRN PRN Reason: SALINE FLUSH Last Admin: 06/09/19 06:43 Dose: 10 ml Documented by: Medical Necessity - Tobacco Use Smoking Status: Former smoker Tobacco Use: Cigarettes Assessment/Plan All Active Problems (Last Reviewed 06/08/19 @ 16:34 by Newton Phillips DO) Pneumonia (Acute) Hypoxia (Acute) Pulmonary hypertension (Acute) Bilateral carotid bruits (Acute) Nonhealing surgical wound (Resolved) Wound dehiscence, surgical (Resolved) Wound, open, back (Resolved) 1. Acute sepsis secondary to community acquired pneumonia and exacerbation of COPD with associated acute hypoxic respiratory insufficiency-chest x-ray admission demonstrated bilateral pneumonia. IV azithromycin and IV Rocephin. Albuterol and DuoNeb aerosols. Urine for strep and Legionella negative. Send sputum for culture. Blood cultures pending. Continue supplement oxygen to maintain O2 at or above 90%. Respiratory panel negative. Continue IV Solu-Medrol. Ambulatory pulse ox prior to discharge. PRN Tessalon Perles added for cough. 2. 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 Denies acute symptoms. Continue outpatient follow-up. 3. Hypertension-stable, continue nifedipine, lisinopril, hydralazine, clonidine regimen. 4. Hyperlipidemia-continue statin. 5. Chronic kidney disease stage III-slightly above baseline, no acute kidney injury. Trend BMP. 6. GERD-continue omeprazole regimen. 7. Osteoporosis-on Fosamax. 8. History of diffuse large cell lymphoma-In remission. 9. DARRIUS-continue home BiPAP regimen. 10. History of thoracic aortic dissection DVT prophylaxis-Lovenox subcu This patient was seen by KELLIE Escalera under the supervision of Dr. Sanchez. <Froy Sanchez F - Last Filed: 06/09/19 15:03> - Physical Exam Vitals/I&O's: Vital Signs Temp Pulse Resp BP Pulse Ox 98.6 F 76 20 H 115/45 L 94 06/09/19 12:04 06/09/19 14:49 06/09/19 14:49 06/09/19 12:04 06/09/19 12:04 Oxygen Flow Rate (L/min) 3 Oxygen Delivery Method Nasal Cannula Weight: 143 lb 15.39 oz Body Mass Index (BMI) 23.9 Intake and Output for Last 24 Hours 06/07/19 06/08/19 06/09/19 23:59 23:59 23:59 Intake Total 400 / 400 655 / 655 Balance 400 / 400 655 / 655 Microbiology Past 72 Hours 06/08/19 14:30 Urine, Clean Catch Urine Culture - Preliminary Culture exhibits no growth. 06/08/19 23:50 Mucosa - Nasopharyngeal Respiratory Panel (PCR) - Final 06/08/19 14:30 Urine, Clean Catch Legionella Antigen - Final 06/08/19 14:30 Urine Catheter - Catheter Streptococcus pneumoniae Antigen (M - Final 06/08/19 14:00 Mucosa - Nose Influenza Types A,B Direct FA (MONIE) - Final Laboratory Results 06/08/19 14:30: Urine RBC 0 SEEN, Urine WBC 0 SEEN, Ur Squamous Epith Cells 0-5 SEEN, Urine Bacteria 0 SEEN, Urine Mucus 0 SEEN 06/09/19 05:55: WBC 20.0 H, RBC 3.44 L, Hgb 11.0 L, Hct 33.6 L, MCV 97.7, MCH 32.0, MCHC 32.7, RDW Std Deviation 53.5 H, RDW Coeff of Tom 14.9 H, Plt Count 231, MPV 8.8, Immature Gran % (Auto) 2.300 H, Neut % (Auto) 87.5 H, Lymph % (Auto) 4.6 L, [place] % (Auto) 4.6, Eos % (Auto) 0.7, Baso % (Auto) 0.3, Absolute Neuts (auto) 17.5 H, Absolute Lymphs (auto) 0.92, Nucleated RBC % 0 06/09/19 05:55: Sodium 139, Potassium 3.8, Chloride 108 H, Carbon Dioxide 22.0, Anion Gap 9, BUN 26 H, Creatinine 1.51 H, Estim Creat Clear Calc 26.29, Est GFR (MDRD) Af Amer 43 L, Est GFR (MDRD) Non-Af 35 L, BUN/Creatinine Ratio 17.2, Glucose 147 H, Calcium 8.4 L, Magnesium 2.2 Current Medications Acetaminophen (Tylenol) 650 mg PO Q6H PRN PRN PRN Reason: Pain Score 1-3/Temp > 100.7 F Albuterol Sulfate (Ventolin Aerosols) 2.5 mg INHALATION Q2H PRN PRN PRN Reason: SHORTNESS OF BREATH Albuterol/Ipratropium (Duoneb) 3 ml INHALATION Q4H.RT [facility] Last Admin: 06/09/19 14:48 Dose: 3 ml Documented by: Alendronate Sodium (Fosamax) 70 mg PO PATINO [facility] Aspirin (Ecotrin) 81 mg PO DAILY@0800 [facility] Last Admin: 06/09/19 07:38 Dose: 81 mg Documented by: Benzonatate (Tessalon Perle) 100 mg PO TID PRN PRN PRN Reason: COUGH Last Admin: 06/09/19 10:10 Dose: 100 mg Documented by: Clonidine (Catapres) 0.3 mg PO TID [facility] Last Admin: 06/09/19 14:40 Dose: 0.3 mg Documented by: Dextrose (D50w Syringe) 0 gm IV X1 PRN; Protocol PRN Reason: Hypoglycemia Docusate Sodium (Colace) 100 mg PO DAILY [facility] Last Admin: 06/09/19 07:38 Dose: 100 mg Documented by: Enoxaparin Sodium (Lovenox) 30 mg SC DAILY@1000 [facility] Last Admin: 06/09/19 07:37 Dose: 30 mg Documented by: Glucagon () 1 mg IM .X1 PRN PRN Reason: Hypoglycemia Guaifenesin (Mucinex) 1,200 mg PO BID [facility] Last Admin: 06/09/19 07:38 Dose: 1,200 mg Documented by: Hydralazine HCl (Apresoline) 100 mg PO Q6 [facility] Last Admin: 06/09/19 13:06 Dose: 100 mg Documented by: Azithromycin 500 mg/ Dextrose 255 mls @ 250 mls/hr IV Q24H [facility] Last Infusion: 06/09/19 00:07 Dose: Infused Documented by: Ceftriaxone Sodium 2 gm/ (Sodium Chloride) 50 mls @ 100 mls/hr IV Q24@2000 [facility] Last Infusion: 06/08/19 21:06 Dose: Infused Documented by: Labetalol HCl (Trandate) 300 mg PO TID [facility] Last Admin: 06/09/19 14:39 Dose: 300 mg Documented by: Lisinopril (Zestril) 10 mg PO DAILY@1200 [facility] Last Admin: 06/09/19 12:12 Dose: 10 mg Documented by: Lorazepam (Ativan) 0.5 mg PO QHS PRN PRN Reason: ANXIETY Last Admin: 06/09/19 00:08 Dose: 0.5 mg Documented by: Methylcellulose (Citrucel) 2 gm PO BID [facility] Last Admin: 06/09/19 10:10 Dose: 2 gm Documented by: Methylprednisolone (Solu-Medrol) 40 mg IV Q8 [facility] Last Admin: 06/09/19 14:39 Dose: 40 mg Documented by: Multivitamins (Allbee W/C Caplet, Thera B Comp/C) 1 capsule PO DAILY [facility] Last Admin: 06/09/19 07:38 Dose: 1 capsule Documented by: Multivitamins/Minerals (Multivitamin With Minerals) 1 tablet PO DAILYCM [facility] Last Admin: 06/09/19 07:38 Dose: 1 tablet Documented by: Nifedipine (Procardia Xl) 90 mg PO BID [facility] Last Admin: 06/09/19 07:39 Dose: 90 mg Documented by: Ondansetron HCl (Zofran) 4 mg IV Q8H PRN PRN PRN Reason: NAUSEA/VOMITING Pantoprazole Sodium (Protonix) 20 mg PO DAILY@1200 [facility] Last Admin: 06/09/19 12:08 Dose: 20 mg Documented by: Sodium Chloride () 10 - 40 ml IV UD PRN PRN Reason: SALINE FLUSH Last Admin: 06/09/19 14:39 Dose: 10 ml Documented by: Code Visit Addendum: Dr. Sanchez I personally examined the patient and reviewed the chart. I agree with the above. 79-year-old female who presented to the hospital with shortness of breath. She had completed a course of Cefdinir and prednisone however her symptoms did not improve. She is currently being treated with azithromycin and Rocephin as well as prednisone for a COPD exacerbation. Chest x-ray shows new lower lobe infiltrates versus scarring as well as hilar adenopathy on both sides. On presentation she had a fever as well as leukocytosis and is currently being for an infectious etiology. She also has some URI-like symptoms with a runny nose and sneezing, however her respiratory panel is negative. We will continue to monitor on her current therapy and make adjustments as necessary. Inpatient E&M: 14620 [facility] Hosp L2
[2019-06-09] MEDS: Benzonatate 100 MG Capsule PO ×2 (10:10→17:38)
[2019-06-09] MEDS: Methylcellulose 2 GM Bottle PO ×2 (10:10→21:04)
--- NOTE | 2019-06-09 11:04 | CASEMGMT ---
Social Work Note SW completed Palliative Care Screening tool and spoke with pt regarding Palliative Care. SW educated pt on Palliative Care. Pt states interest in reviewing the information, denied referral at this time. Adrienne Mcclelland WELDER REPAIR, FORM BUILDING SUPERVISOR
--- NOTE | 2019-06-09 11:45 | CASEMGMT ---
RN CHRISTA Face to Face with patient for initial transition planning/care coordination assessment. RN CM introduced self and role at [facility]. Patient sitting in chair, alert and oriented, at bedside. Patient willing to participate in assessment and is able to answer all questions appropriately. Care providers, pharmacy, and demographics verified. Patient wishes to discharge home, denies need for home health at this time. Patient states she has no further needs or concerns at this time. CM to follow for discharge planning needs that may arise. 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 Patient independent at home. Transportation: self/ DME/HHC: Patient states she has shower chair, raised toilet, cane, walker, and bipap at home. Will monitor for home oxygen for at discharge. Disposition Plan: Patient to discharge home with family support and follow-up plans in place. Adrienne PICKERING, RN, CM
[2019-06-09] MEDS: Lisinopril 10 MG Tablet PO (12:12)
--- NOTE | 2019-06-09 14:09 | CHAPLAIN ---
Type of Pastoral Visit _x__ Initial Visit ___ Follow-up Visit ___ On-call Visit ___ General Patient Visit ___ Spiritual Assessment ___ Family Conference ___ Bereavement ___ Rapid Response ___ Code Blue ___ Other (describe below) Pastoral Care Referral From _x__ Patient ___ Family ___ Nurse ___ Physician ___ Ordnance Technician ___ Gang Tailer ___ Other (describe below) Sacrament/Intervention _x__ Active listening ___ Anointing ___ Anglican ___ Bereavement ___ Communion ___ Tawanna exploration ___ ___ Life review ___ Prayer ___ Reconciliation ___ Sacrament of Sick ___ Supportive presence ___ Wedding ___ Other (describe below) Pastoral Comments
--- NOTE | 2019-06-09 21:13 | CPS ---
Pt. has her own CPAP machine
[2019-06-10] VITALS (16 sets, daily range): BP systolic 99–135; BP diastolic 47–74; PULSE 61–78; RESP 16–20; TEMP 36.3–36.9; O2SAT 91–95
[2019-06-10 06:36] LABS: Hematocrit 32.4 % (37-47); Hemoglobin 10.5 g/dL (12.0-15.0); Mean Corp Hgb Conc 32.4 g/dL (32-36); Mean Corpuscular Hgb 31.9 pg (27.0-32.0); Mean Corpuscular Volume 98.5 fL (81-99); Mean Platelet Vol. 9.1 fl (6.2-12.0); Platelet Count 243 K/mm3 (150-450); RBC Distribution Width SD 54.8 fl (35.1-43.9); Red Blood Count 3.29 M/mm3 (4.2-5.4); White Blood Count 16.9 K/mm3 (4.4-11.0)
[2019-06-10] MEDS: hydrALAZINE 50 MG Tablet 100 MG PO ×3 (06:38→23:03)
[2019-06-10] MEDS: cloNIDine HCl 0.2 MG Tablet 0.3 MG PO ×3 (06:38→21:04)
[2019-06-10] MEDS: Labetalol 200 MG Tablet 300 MG PO ×3 (06:38→21:02)
[2019-06-10 06:54] LABS: Anion Gap 8 (5-15); BUN 34 mg/dL (7-18); BUN/Creat Ratio 22.7 RATIO (10-20); Calcium,Total 8.2 mg/dL (8.5-10.1); Chloride 115 mmol/L (98-107); EST Glomerular Filtration Rate 35 mL/min (>60); Est Glom Filt Rate - Afr Amer 43 mL/min (>60); Estimated Creatinine Clearance 26.47 ml/min; Glucose 144 mg/dL (74-106); Sodium Level 141 mmol/L (136-145)
[2019-06-10] MEDS: Ipratropium/Albuterol Sulfate 3 ML AMPUL.NEB INHALATION ×5 (07:00→23:00)
[2019-06-10] MEDS: Aspirin E.C. 81 MG Tablet PO (09:34)
[2019-06-10] MEDS: Multivitamins,Ther W-Minerals Tablet 1 TABLET PO (09:34)
[2019-06-10] MEDS: Vitamin B Comp W-C Capsule 1 CAP PO (09:34)
[2019-06-10] MEDS: Methylcellulose 2 GM Bottle PO ×2 (09:34→21:00)
[2019-06-10] MEDS: Docusate Sodium 100 MG Capsule PO (09:35)
[2019-06-10] MEDS: NIFEdipine 90 MG Tablet PO ×2 (09:35→21:03)
[2019-06-10] MEDS: Enoxaparin 30 MG/0.3 ML Syringe SC (09:35)
[2019-06-10] MEDS: guaiFENesin 1,200 MG Tablet 1200 MG PO (09:35)
[2019-06-10] MEDS: Benzonatate 100 MG Capsule PO (09:58)
[2019-06-10] MEDS: LORazepam 0.5 MG Tablet PO ×2 (09:58→20:59)
--- NOTE | 2019-06-10 10:27 | PN_ITS ---
Patient Problems: Active and Suspected Problems (Last Reviewed 06/08/19 @ 16:34 by Newton Phillips DO) Pneumonia (Acute) Hypoxia (Acute) Subjective: Feels lsightly better than yesterday, still with a nonproductive cough Vitals/I&O's: Vital Signs Temp Pulse Resp BP Pulse Ox 97.4 F L 70 18 116/67 91 06/10/19 08:28 06/10/19 10:23 06/10/19 10:23 06/10/19 08:28 06/10/19 10:23 Oxygen Flow Rate (L/min) 3 Oxygen Delivery Method Nasal Cannula Weight: 143 lb 15.39 oz Body Mass Index (BMI) 23.9 Intake and Output for Last 24 Hours 06/08/19 06/09/19 06/10/19 23:59 23:59 23:59 Intake Total 400 / 400 960 / 1550 640 / 640 Output Total 200 / 200 Balance 400 / 400 960 / 1550 440 / 440 General: Alert, Oriented x3, Cooperative, No apparent distress HEENT: Atraumatic, PERRLA, EOMI, Normocephalic Oral: Moist Mucosa Neck: Supple, No JVD Lungs: Diminished, Rhonchi, Wheezes Cardiovascular: Regular rate, Regular Rhythm, Normal S1, Normal S2, No murmurs Abdomen: Soft, Non Tender, Non-Distended, No Hepato-splenomegaly Extremities: No edema, Capillary Refill Less than 3 Seconds Skin: No rashes, No breakdown Neurological: Neuro grossly intact, Sensory exam intact to light touch and pain Psych/Mental Status: Normal Affect, Appropriate Microbiology Past 72 Hours 06/08/19 14:30 Urine, Clean Catch Urine Culture - Preliminary Culture exhibits no growth. 06/08/19 23:50 Mucosa - Nasopharyngeal Respiratory Panel (PCR) - Final 06/08/19 14:30 Urine, Clean Catch Legionella Antigen - Final 06/08/19 14:30 Urine Catheter - Catheter Streptococcus pneumoniae Antigen (M - Final 06/08/19 14:00 Mucosa - Nose Influenza Types A,B Direct FA (MONIE) - Final Laboratory Results 06/10/19 06:18: WBC 16.9 H, RBC 3.29 L, Hgb 10.5 L, Hct 32.4 L, MCV 98.5, MCH 31.9, MCHC 32.4, RDW Std Deviation 54.8 H, RDW Coeff of Tom 15.0 H, Plt Count 243, MPV 9.1 06/10/19 06:18: Sodium 141, Potassium 4.0, Chloride 115 H, Carbon Dioxide 18.0 L , Anion Gap 8, BUN 34 H, Creatinine 1.50 H, Estim Creat Clear Calc 26.47, Est GFR (MDRD) Af Amer 43 L, Est GFR (MDRD) Non-Af 35 L, BUN/Creatinine Ratio 22.7 H , Glucose 144 H, Calcium 8.2 L Current Medications Acetaminophen (Tylenol) 650 mg PO Q6H PRN PRN PRN Reason: Pain Score 1-3/Temp > 100.7 F Albuterol Sulfate (Ventolin Aerosols) 2.5 mg INHALATION Q2H PRN PRN PRN Reason: SHORTNESS OF BREATH Albuterol/Ipratropium (Duoneb) 3 ml INHALATION Q4H.RT [facility] Last Admin: 06/10/19 10:23 Dose: 3 ml Documented by: Alendronate Sodium (Fosamax) 70 mg PO PATINO [facility] Aspirin (Ecotrin) 81 mg PO DAILY@0800 [facility] Last Admin: 06/10/19 09:34 Dose: 81 mg Documented by: Benzonatate (Tessalon Perle) 100 mg PO TID PRN PRN PRN Reason: COUGH Last Admin: 06/10/19 09:58 Dose: 100 mg Documented by: Clonidine (Catapres) 0.3 mg PO TID [facility] Last Admin: 06/10/19 06:38 Dose: 0.3 mg Documented by: Dextrose (D50w Syringe) 0 gm IV X1 PRN; Protocol PRN Reason: Hypoglycemia Docusate Sodium (Colace) 100 mg PO DAILY [facility] Last Admin: 06/10/19 09:35 Dose: 100 mg Documented by: Enoxaparin Sodium (Lovenox) 30 mg SC DAILY@1000 [facility] Last Admin: 06/10/19 09:35 Dose: 30 mg Documented by: Glucagon () 1 mg IM .X1 PRN PRN Reason: Hypoglycemia Guaifenesin (Mucinex) 1,200 mg PO BID [facility] Last Admin: 06/10/19 09:35 Dose: 1,200 mg Documented by: Hydralazine HCl (Apresoline) 100 mg PO Q6 [facility] Last Admin: 06/10/19 06:38 Dose: 100 mg Documented by: Azithromycin 500 mg/ Dextrose 255 mls @ 250 mls/hr IV Q24H [facility] Last Infusion: 06/09/19 22:06 Dose: Infused Documented by: Ceftriaxone Sodium 2 gm/ (Sodium Chloride) 50 mls @ 100 mls/hr IV Q24@2000 [facility] Last Infusion: 06/09/19 20:23 Dose: Infused Documented by: Labetalol HCl (Trandate) 300 mg PO TID [facility] Last Admin: 06/10/19 06:38 Dose: 300 mg Documented by: Lisinopril (Zestril) 10 mg PO DAILY@1200 [facility] Last Admin: 06/09/19 12:12 Dose: 10 mg Documented by: Lorazepam (Ativan) 0.5 mg PO QHS PRN PRN Reason: ANXIETY Last Admin: 06/10/19 09:58 Dose: 0.5 mg Documented by: Methylcellulose (Citrucel) 2 gm PO BID [facility] Last Admin: 06/10/19 09:34 Dose: 2 gm Documented by: Methylprednisolone (Solu-Medrol) 40 mg IV Q8 [facility] Last Admin: 06/10/19 06:39 Dose: 40 mg Documented by: Multivitamins (Allbee W/C Caplet, Thera B Comp/C) 1 capsule PO DAILY [facility] Last Admin: 06/10/19 09:34 Dose: 1 capsule Documented by: Multivitamins/Minerals (Multivitamin With Minerals) 1 tablet PO DAILYCM [facility] Last Admin: 06/10/19 09:34 Dose: 1 tablet Documented by: Nifedipine (Procardia Xl) 90 mg PO BID [facility] Last Admin: 06/10/19 09:35 Dose: 90 mg Documented by: Ondansetron HCl (Zofran) 4 mg IV Q8H PRN PRN PRN Reason: NAUSEA/VOMITING Pantoprazole Sodium (Protonix) 20 mg PO DAILY@1200 [facility] Last Admin: 06/09/19 12:08 Dose: 20 mg Documented by: Sodium Chloride () 10 - 40 ml IV UD PRN PRN Reason: SALINE FLUSH Last Admin: 06/09/19 14:39 Dose: 10 ml Documented by: STROKE Vital Signs/Narrative: Vital Signs Temp Pulse Resp BP BP Pulse Ox 06/10/19 10:23 70 18 91 11/27/19 08:28 97.4 F L 61 18 116/67 95 06/10/19 07:00 65 18 93 06/10/19 06:38 71 135/72 H 06/10/19 06:37 71 135/72 H 95 Medical Necessity - Tobacco Use Smoking Status: Former smoker Tobacco Use: Cigarettes Assessment/Plan All Active Problems (Last Reviewed 06/08/19 @ 16:34 by Newton Phillips DO) Pneumonia (Acute) Hypoxia (Acute) Pulmonary hypertension (Acute) Bilateral carotid bruits (Acute) Nonhealing surgical wound (Resolved) Wound dehiscence, surgical (Resolved) Wound, open, back (Resolved) 1. Sepsis 2/2 CAP/Acute hypoxic resp insufficiency 2/2 to CAP and COPD exacerbation - C/w IV steroids - C/w rocephin and azithromycin - C/w duonebs - Blood cultures pending, urine ags are negative - C/w mucinex and tessalon perles 2. HTN/HLD - SBP is stable - C/w home medications 3. CKD 3 - Renal function is stable - will monitor 4. GERD - stable - c/w PPI 5. Osteoporosis - Stable - C/w fosamax DVT: Lovenox Code Visit Inpatient E&M: 54133 Subs Hosp L2
[2019-06-10] MEDS: Pantoprazole Sodium 20 MG Tablet PO (12:08)
[2019-06-10] MEDS: Acetaminophen 325 MG Tablet 650 MG PO (13:09)
--- NOTE | 2019-06-10 13:50 | CASEMGMT ---
LW/POA forms not on file. SW notified pt, asked her to bring them in as able after she is discharged from the hospital. Pt states understanding. HUSSAIN Nolasco
[2019-06-10] MEDS: guaiFENesin/Codeine 5 ML UDC PO (17:12)
--- NOTE | 2019-06-10 21:52 | NURSING ---
pt returned from the bathroom. pt becomes sob with min exertion
[2019-06-11] VITALS (16 sets, daily range): BP systolic 125–144; BP diastolic 55–75; PULSE 68–94; RESP 18–20; TEMP 36.7–36.9; O2SAT 88–96
[2019-06-11] MEDS: hydrALAZINE 50 MG Tablet 100 MG PO ×3 (05:15→18:15)
[2019-06-11] MEDS: Labetalol 200 MG Tablet 300 MG PO ×3 (05:15→21:54)
[2019-06-11] MEDS: cloNIDine HCl 0.2 MG Tablet 0.3 MG PO ×3 (05:17→21:52)
[2019-06-11 06:05] LABS: Absolute Lymphocyte Count 1.05 X10^3/uL (0.83-4.51); Absolute Neutrophil Count 13.5 X10^3/uL (2.0-7.7); Basophil# 0.03 X10^3/uL; Basophil% 0.2 % (0-1); Hematocrit 32.4 % (37-47); Hemoglobin 10.4 g/dL (12.0-15.0); Lymphocyte # 1.05 X10^3/ul (4.0); Lymphocyte % 6.6 % (19-41); Mean Corp Hgb Conc 32.1 g/dL (32-36); Mean Corpuscular Hgb 31.7 pg (27.0-32.0); Mean Corpuscular Volume 98.8 fL (81-99); Mean Platelet Vol. 9.1 fl (6.2-12.0); Monocyte# 0.63 X10^3/uL; Monocyte% 3.9 % (0-10); NRBC Flagged by Analyzer 0 % (0-5); Neutrophil # 13.54 X10^3/uL (2.7-7.7); Neutrophil % 84.5 % (47-70); Platelet Count 270 K/mm3 (150-450); RBC Distribution Width CV 15.1 % (11.6-14.6); RBC Distribution Width SD 55.1 fl (35.1-43.9); Red Blood Count 3.28 M/mm3 (4.2-5.4)
[2019-06-11 06:27] LABS: Anion Gap 9 (5-15); BUN 45 mg/dL (7-18); BUN/Creat Ratio 27.6 RATIO (10-20); Calcium,Total 8.1 mg/dL (8.5-10.1); Chloride 114 mmol/L (98-107); Creatinine, Serum 1.63 mg/dL (0.55-1.02); EST Glomerular Filtration Rate 32 mL/min (>60); Est Glom Filt Rate - Afr Amer 39 mL/min (>60); Estimated Creatinine Clearance 24.36 ml/min; Glucose 137 mg/dL (74-106); Potassium 3.9 mmol/L (3.5-5.1); Sodium Level 143 mmol/L (136-145)
[2019-06-11] MEDS: Ipratropium/Albuterol Sulfate 3 ML AMPUL.NEB INHALATION ×4 (07:10→19:56)
--- NOTE | 2019-06-11 08:27 | PCM.PN.HOSP ---
Patient Problems: Active and Suspected Problems (Last Reviewed 06/08/19 @ 16:34 by Newton Phillips DO) Pneumonia (Acute) Hypoxia (Acute) Reason for Visit: Follow-up; community-acquired pneumonia and COPD with acute exacerbation Subjective: Patient is an 79-year-old lady with multiple comorbidities admitted with progressive shortness of breath and assessment of sepsis secondary to a combination of community-acquired pneumonia as well as COPD made admitted to regular nursing floor for subsequent management Objective: GENERAL: cooperative HEENT: Atraumatic; EYES; Anicteric, Normal Conjunctiva NECK; supple, normal thyroid, RESPIRATORY: Diminished to auscultation CARDIOVASCULAR: Regular S1 S2, GI: soft, normoactive bowel sounds, : No Renal angle tenderness; EXTREMITIES: No edema, no clubbing, MUSCULOSKELETAL: no muscle waisting NEURO: Awake; no lateralizing signs. SKIN: No Rash PSYCH; Flat affect Vitals/I&O's: Vital Signs Temp Pulse Resp BP Pulse Ox 98.1 F 72 18 143/71 H 94 06/11/19 05:03 06/11/19 05:15 06/11/19 05:03 06/11/19 05:03 06/11/19 05:03 Oxygen Flow Rate (L/min) 3 Oxygen Delivery Method CPAP Weight: 65.3 kg Body Mass Index (BMI) 23.9 Intake and Output for Last 24 Hours 06/09/19 06/10/19 06/11/19 23:59 23:59 23:59 Intake Total 960 / 1550 1845 / 1845 840 / 840 Output Total 200 / 200 Balance 960 / 1550 1645 / 1645 840 / 840 Microbiology Past 72 Hours 06/08/19 14:30 Urine, Clean Catch Urine Culture - Final Culture exhibits no growth. 06/08/19 12:00 Blood Culture (Wb) - Right Forearm Blood Culture - Preliminary No growth in 48 hours. 06/08/19 12:00 Blood Culture (Wb) - Anticubital Left Blood Culture - Preliminary No growth in 48 hours. 06/08/19 23:50 Mucosa - Nasopharyngeal Respiratory Panel (PCR) - Final 06/08/19 14:30 Urine, Clean Catch Legionella Antigen - Final 06/08/19 14:30 Urine Catheter - Catheter Streptococcus pneumoniae Antigen (M - Final 06/08/19 14:00 Mucosa - Nose Influenza Types A,B Direct FA (MONIE) - Final Laboratory Results 06/11/19 05:25: WBC 16.0 H, RBC 3.28 L, Hgb 10.4 L, Hct 32.4 L, MCV 98.8, MCH 31.7, MCHC 32.1, RDW Std Deviation 55.1 H, RDW Coeff of Tom 15.1 H, Plt Count 270, MPV 9.1, Immature Gran % (Auto) 4.800 H, Neut % (Auto) 84.5 H, Lymph % (Auto) 6.6 L, Cecil % (Auto) 3.9, Eos % (Auto) 0.0, Baso % (Auto) 0.2, Absolute Neuts (auto) 13.5 H, Absolute Lymphs (auto) 1.05, Nucleated RBC % 0 06/11/19 05:25: Sodium 143, Potassium 3.9, Chloride 114 H, Carbon Dioxide 20.0 L, Anion Gap 9, BUN 45 H, Creatinine 1.63 H, Estim Creat Clear Calc 24.36, Est GFR (MDRD) Af Amer 39 L, Est GFR (MDRD) Non-Af 32 L, BUN/Creatinine Ratio 27.6 H, Glucose 137 H, Calcium 8.1 L Current Medications Acetaminophen (Tylenol) 650 mg PO Q6H PRN PRN PRN Reason: Pain Score 1-3/Temp > 100.7 F Last Admin: 06/10/19 13:09 Dose: 650 mg Documented by: Albuterol Sulfate (Ventolin Aerosols) 2.5 mg INHALATION Q2H PRN PRN PRN Reason: SHORTNESS OF BREATH Albuterol/Ipratropium (Duoneb) 3 ml INHALATION Q4H.RT [facility] Last Admin: 06/11/19 07:10 Dose: 3 ml Documented by: Alendronate Sodium (Fosamax) 70 mg PO PATINO SYL Aspirin (Ecotrin) 81 mg PO DAILY@0800 [facility] Last Admin: 06/10/19 09:34 Dose: 81 mg Documented by: Benzonatate (Tessalon Perle) 100 mg PO TID PRN PRN PRN Reason: COUGH Last Admin: 06/10/19 09:58 Dose: 100 mg Documented by: Clonidine (Catapres) 0.3 mg PO TID [facility] Last Admin: 06/11/19 05:17 Dose: 0.3 mg Documented by: Dextrose (D50w Syringe) 0 gm IV X1 PRN; Protocol PRN Reason: Hypoglycemia Docusate Sodium (Colace) 100 mg PO DAILY [facility] Last Admin: 06/10/19 09:35 Dose: 100 mg Documented by: Enoxaparin Sodium (Lovenox) 30 mg SC DAILY@1000 [facility] Last Admin: 06/10/19 09:35 Dose: 30 mg Documented by: Glucagon () 1 mg IM .X1 PRN PRN Reason: Hypoglycemia Guaifenesin/Codeine Phosphate (Robitussin Ac) 5 ml PO Q6H PRN PRN PRN Reason: COUGH Last Admin: 06/10/19 17:12 Dose: 5 ml Documented by: Hydralazine HCl (Apresoline) 100 mg PO Q6 [facility] Last Admin: 06/11/19 05:15 Dose: 100 mg Documented by: Azithromycin 500 mg/ Dextrose 255 mls @ 250 mls/hr IV Q24H [facility] Last Infusion: 06/10/19 22:04 Dose: Infused Documented by: Ceftriaxone Sodium 2 gm/ (Sodium Chloride) 50 mls @ 100 mls/hr IV Q24@2000 [facility] Last Infusion: 06/10/19 20:06 Dose: Infused Documented by: Labetalol HCl (Trandate) 300 mg PO TID [facility] Last Admin: 06/11/19 05:15 Dose: 300 mg Documented by: Lisinopril (Zestril) 10 mg PO DAILY@1200 [facility] Last Admin: 06/10/19 11:40 Dose: Not Given Documented by: Lorazepam (Ativan) 0.5 mg PO QHS PRN PRN Reason: ANXIETY Last Admin: 06/10/19 09:58 Dose: 0.5 mg Documented by: Methylcellulose (Citrucel) 2 gm PO BID [facility] Last Admin: 06/10/19 21:00 Dose: 2 gm Documented by: Methylprednisolone (Solu-Medrol) 40 mg IV Q8 [facility] Last Admin: 06/11/19 05:18 Dose: 40 mg Documented by: Multivitamins (Allbee W/C Caplet, Thera B Comp/C) 1 capsule PO DAILY [facility] Last Admin: 06/10/19 09:34 Dose: 1 capsule Documented by: Multivitamins/Minerals (Multivitamin With Minerals) 1 tablet PO DAILYCM [facility] Last Admin: 06/10/19 09:34 Dose: 1 tablet Documented by: Nifedipine (Procardia Xl) 90 mg PO BID [facility] Last Admin: 06/10/19 21:03 Dose: 90 mg Documented by: Ondansetron HCl (Zofran) 4 mg IV Q8H PRN PRN PRN Reason: NAUSEA/VOMITING Pantoprazole Sodium (Protonix) 20 mg PO DAILY@1200 [facility] Last Admin: 06/10/19 12:08 Dose: 20 mg Documented by: Sodium Chloride () 10 - 40 ml IV UD PRN PRN Reason: SALINE FLUSH Last Admin: 06/09/19 14:39 Dose: 10 ml Documented by: STROKE Vital Signs/Narrative: Vital Signs Temp Pulse Resp BP Pulse Ox 06/11/19 05:15 72 06/11/19 05:03 98.1 F 72 18 143/71 H 94 Medical Necessity - Tobacco Use Smoking Status: Former smoker Tobacco Use: Cigarettes Assessment/Plan All Active Problems (Last Reviewed 06/08/19 @ 16:34 by Newton Phillips DO) Pneumonia (Acute) Hypoxia (Acute) Pulmonary hypertension (Acute) Bilateral carotid bruits (Acute) Nonhealing surgical wound (Resolved) Wound dehiscence, surgical (Resolved) Wound, open, back (Resolved) Patient is an 79-year-old lady with multiple comorbidities admitted with progressive shortness of breath and assessment of sepsis secondary to a combination of community-acquired pneumonia as well as COPD made admitted to regular nursing floor for subsequent management 1. Sepsis secondary to pneumonia ~ Suspected to be secondary to streptococci pneumonia, Blood and sputum cultures sent. Patient placed on Rocephin and Zithromax and placed on oxygen titrated to keep also is greater than 90 2. COPD with acute exacerbation ~Precipitated by above management as described above in addition to systemic steroids and aerosol treatment 3. Acute respiratory insufficiency ~Secondary to #1 and #2 patient currently on supplemental oxygen which is being weaned off 4. Hypertension ~ blood pressure controlled, home medications continued with dose adjustment as needed 5. Dyslipidemia ~patient is on statin therapy, continued at home dose 6. Peripheral vascular disease ~Patient currently on aspirin 7. History of diffuse large cell lymphoma ~ with previous chemo currently in remission 8. Osteoporosis ~On Fosamax 9. Obstructive sleep apnea ~Patient is on BiPAP at home 10. Thoracic aortic dissection in August 2018 ~Currently stable 11. Physical deconditioning Secondary to above requested for PT OT eval and protective services social worker to assist with discharge planning. Had a discussion with patient regarding disposition her preference will be either to rehab or to TCU 12. DVT prophylaxis ~ on enoxaparin Active Medications Acetaminophen (Tylenol) 650 mg PO Q6H PRN PRN PRN Reason: Pain Score 1-3/Temp > 100.7 F Last Admin: 06/10/19 13:09 Dose: 650 mg Documented by: Albuterol Sulfate (Ventolin Aerosols) 2.5 mg INHALATION Q2H PRN PRN PRN Reason: SHORTNESS OF BREATH Albuterol/Ipratropium (Duoneb) 3 ml INHALATION Q4H.RT [facility] Last Admin: 06/11/19 07:10 Dose: 3 ml Documented by: Alendronate Sodium (Fosamax) 70 mg PO PATINO SYL Aspirin (Ecotrin) 81 mg PO DAILY@0800 [facility] Last Admin: 06/11/19 08:57 Dose: 81 mg Documented by: Benzonatate (Tessalon Perle) 100 mg PO TID PRN PRN PRN Reason: COUGH Last Admin: 06/11/19 09:06 Dose: 100 mg Documented by: Clonidine (Catapres) 0.3 mg PO TID [facility] Last Admin: 06/11/19 05:17 Dose: 0.3 mg Documented by: Dextrose (D50w Syringe) 0 gm IV X1 PRN; Protocol PRN Reason: Hypoglycemia Docusate Sodium (Colace) 100 mg PO DAILY [facility] Last Admin: 06/11/19 08:58 Dose: 100 mg Documented by: Enoxaparin Sodium (Lovenox) 30 mg SC DAILY@1000 [facility] Last Admin: 06/11/19 08:58 Dose: 30 mg Documented by: Glucagon () 1 mg IM .X1 PRN PRN Reason: Hypoglycemia Guaifenesin/Codeine Phosphate (Robitussin Ac) 5 ml PO Q6H PRN PRN PRN Reason: COUGH Last Admin: 06/11/19 09:06 Dose: 5 ml Documented by: Hydralazine HCl (Apresoline) 100 mg PO Q6 [facility] Last Admin: 06/11/19 05:15 Dose: 100 mg Documented by: Azithromycin 500 mg/ Dextrose 255 mls @ 250 mls/hr IV Q24H [facility] Last Infusion: 06/10/19 22:04 Dose: Infused Documented by: Ceftriaxone Sodium 2 gm/ (Sodium Chloride) 50 mls @ 100 mls/hr IV Q24@2000 [facility] Last Infusion: 06/10/19 20:06 Dose: Infused Documented by: Labetalol HCl (Trandate) 300 mg PO TID [facility] Last Admin: 06/11/19 05:15 Dose: 300 mg Documented by: Lisinopril (Zestril) 10 mg PO DAILY@1200 [facility] Last Admin: 06/10/19 11:40 Dose: Not Given Documented by: Lorazepam (Ativan) 0.5 mg PO QHS PRN PRN Reason: ANXIETY Last Admin: 06/10/19 09:58 Dose: 0.5 mg Documented by: Methylcellulose (Citrucel) 2 gm PO BID [facility] Last Admin: 06/11/19 08:57 Dose: 2 gm Documented by: Methylprednisolone (Solu-Medrol) 40 mg IV Q8 [facility] Last Admin: 06/11/19 05:18 Dose: 40 mg Documented by: Multivitamins (Allbee W/C Caplet, Thera B Comp/C) 1 capsule PO DAILY [facility] Last Admin: 06/11/19 08:57 Dose: 1 capsule Documented by: Multivitamins/Minerals (Multivitamin With Minerals) 1 tablet PO DAILYCM [facility] Last Admin: 06/11/19 08:57 Dose: 1 tablet Documented by: Nifedipine (Procardia Xl) 90 mg PO BID [facility] Last Admin: 06/11/19 08:58 Dose: 90 mg Documented by: Ondansetron HCl (Zofran) 4 mg IV Q8H PRN PRN PRN Reason: NAUSEA/VOMITING Pantoprazole Sodium (Protonix) 20 mg PO DAILY@1200 [facility] Last Admin: 06/10/19 12:08 Dose: 20 mg Documented by: Sodium Chloride () 10 - 40 ml IV UD PRN PRN Reason: SALINE FLUSH Last Admin: 06/09/19 14:39 Dose: 10 ml Documented by: Clinical Impression(s) from Imaging Studies Chest X-Ray 06/08/19 13:42 IMPRESSION: Bilateral hilar adenopathy with patchy changes involving both bases new since the last study. Electronically Signed: Maci Cantor, at 14:37 EST Tel , Service support , Code Visit Inpatient E&M: 71211 Subs Hosp L2
[2019-06-11] MEDS: Methylcellulose 2 GM Bottle PO ×2 (08:57→21:54)
[2019-06-11] MEDS: Multivitamins,Ther W-Minerals Tablet 1 TABLET PO (08:57)
[2019-06-11] MEDS: Aspirin E.C. 81 MG Tablet PO (08:57)
[2019-06-11] MEDS: Vitamin B Comp W-C Capsule 1 CAP PO (08:57)
[2019-06-11] MEDS: Docusate Sodium 100 MG Capsule PO (08:58)
[2019-06-11] MEDS: NIFEdipine 90 MG Tablet PO ×2 (08:58→21:52)
[2019-06-11] MEDS: Enoxaparin 30 MG/0.3 ML Syringe SC (08:58)
[2019-06-11] MEDS: Benzonatate 100 MG Capsule PO (09:06)
[2019-06-11] MEDS: guaiFENesin/Codeine 5 ML UDC PO ×2 (09:06→18:18)
[2019-06-11] MEDS: Lisinopril 10 MG Tablet PO (12:56)
[2019-06-11] MEDS: Pantoprazole Sodium 20 MG Tablet PO (12:56)
[2019-06-11] MEDS: 0.9% Saline Lock 10 ML Syringe IV (14:55)
[2019-06-11] MEDS: Acetaminophen 325 MG Tablet 650 MG PO (18:20)
[2019-06-11] MEDS: LORazepam 0.5 MG Tablet PO (22:36)
[2019-06-12] VITALS (11 sets, daily range): BP systolic 118–138; BP diastolic 55–76; PULSE 71–88; RESP 18–20; TEMP 36.8; O2SAT 90–98
[2019-06-12] MEDS: hydrALAZINE 50 MG Tablet 100 MG PO ×3 (00:18→12:43)
[2019-06-12 06:02] LABS: Hematocrit 33.3 % (37-47); Hemoglobin 10.6 g/dL (12.0-15.0); Mean Corp Hgb Conc 31.8 g/dL (32-36); Mean Corpuscular Hgb 31.4 pg (27.0-32.0); Mean Corpuscular Volume 98.5 fL (81-99); Mean Platelet Vol. 8.9 fl (6.2-12.0); POSITIVE COUNT YES; POSITIVE MORPHOLOGY YES; Platelet Count 294 K/mm3 (150-450); RBC Distribution Width CV 15.1 % (11.6-14.6); RBC Distribution Width SD 54.6 fl (35.1-43.9); Red Blood Count 3.38 M/mm3 (4.2-5.4); White Blood Count 13.3 K/mm3 (4.4-11.0)
[2019-06-12 06:20] LABS: Anion Gap 9 (5-15); BUN 37 mg/dL (7-18); BUN/Creat Ratio 27.2 RATIO (10-20); Calcium,Total 8.5 mg/dL (8.5-10.1); Chloride 112 mmol/L (98-107); Creatinine, Serum 1.36 mg/dL (0.55-1.02); EST Glomerular Filtration Rate 40 mL/min (>60); Est Glom Filt Rate - Afr Amer 48 mL/min (>60); Estimated Creatinine Clearance 29.19 ml/min; Glucose 121 mg/dL (74-106); Magnesium 2.3 mg/dL (1.6-2.6); Potassium 4.2 mmol/L (3.5-5.1); Sodium Level 142 mmol/L (136-145)
[2019-06-12] MEDS: Labetalol 200 MG Tablet 300 MG PO ×2 (06:42→13:43)
[2019-06-12] MEDS: cloNIDine HCl 0.2 MG Tablet 0.3 MG PO ×2 (06:43→13:44)
[2019-06-12] MEDS: Ipratropium/Albuterol Sulfate 3 ML AMPUL.NEB INHALATION ×2 (06:54→10:53)
[2019-06-12 07:00] LABS: Lymphocyte 14 % (19-41); Metamyelocyte 6 % (0-1); Monocyte 5 % (0-10); Myelocyte 1 (0-0); Neutrophil-Band 9 % (0-5); Neutrophil-Segmented 65 % (47-70); Total Cells Counted 100 (MANUAL DIFF)
[2019-06-12 07:01] LABS: Differential Indicated MANUAL DIFF
[2019-06-12 07:02] LABS: Absolute Neutrophil Count 9.8 X10^3/uL (2.0-7.7); Neutrophil # 9.84 X10^3/uL (2.7-7.7)
[2019-06-12 07:03] LABS: Absolute Lymphocyte Count 1.86 X10^3/uL (0.83-4.51); Lymphocyte # 1.86 X10^3/ul (4.0); Platelet Estimate ADEQUATE (ADEQ); Red Cell Morphology NORM C+C NORMAL (NORM C&C)
--- NOTE | 2019-06-12 07:24 | PCM.PN.HOSP ---
Patient Problems: Active and Suspected Problems (Last Reviewed 06/08/19 @ 16:34 by Newton Phillips DO) Pneumonia (Acute) Hypoxia (Acute) Reason for Visit: Follow-up community-acquired pneumonia Subjective: Patient seen admits to some improvement in her overall condition. However still remains on oxygen. Did discuss with patient once more regarding disposition her preference will be to go to either the rehab unit or the TCU. Consult subsequently placed to case management Objective: GENERAL: cooperative HEENT: Atraumatic; EYES; Anicteric, Normal Conjunctiva NECK; supple, normal thyroid, RESPIRATORY: Diminished to auscultation CARDIOVASCULAR: Regular S1 S2, GI: soft, normoactive bowel sounds, : No Renal angle tenderness; EXTREMITIES: No edema, no clubbing, MUSCULOSKELETAL: no muscle waisting NEURO: Awake; no lateralizing signs. SKIN: No Rash PSYCH; Flat affect Vitals/I&O's: Vital Signs Temp Pulse Resp BP Pulse Ox 98.3 F 76 18 138/73 H 96 06/12/19 03:40 06/12/19 06:43 06/12/19 03:40 06/12/19 06:43 06/12/19 03:40 Oxygen Flow Rate (L/min) 2 Oxygen Delivery Method Room Air Weight: 65.3 kg Body Mass Index (BMI) 23.9 Intake and Output for Last 24 Hours 06/10/19 06/11/19 06/12/19 23:59 23:59 23:59 Intake Total 1845 / 1845 2185 / 2185 500 / 500 Output Total 200 / 200 Balance 1645 / 1645 2185 / 2185 500 / 500 Microbiology Past 72 Hours 06/08/19 14:30 Urine, Clean Catch Urine Culture - Final Culture exhibits no growth. 06/08/19 12:00 Blood Culture (Wb) - Right Forearm Blood Culture - Preliminary No growth in 48 hours. 06/08/19 12:00 Blood Culture (Wb) - Anticubital Left Blood Culture - Preliminary No growth in 48 hours. 06/08/19 23:50 Mucosa - Nasopharyngeal Respiratory Panel (PCR) - Final Laboratory Results 06/12/19 05:30: WBC 13.3 H, RBC 3.38 L, Hgb 10.6 L, Hct 33.3 L, MCV 98.5, MCH 31.4, MCHC 31.8 L, RDW Std Deviation 54.6 H, RDW Coeff of Tom 15.1 H, Plt Count 294, MPV 8.9, Neut % (Auto) Not Reportable, Absolute Neuts (auto) 9.8 H, Absolute Lymphs (auto) 1.86, Total Counted 100, Neutrophils % (Manual) 65, Band Neutrophils % 9 H, Lymphocytes % (Manual) 14 L, Monocytes % (Manual) 5, Metamyelocytes % 6 H, Myelocytes % 1 H, Diff Path Review November, Platelet Estimate ADEQUATE, RBC Morphology NORM C+C 06/12/19 05:30: Sodium 142, Potassium 4.2, Chloride 112 H, Carbon Dioxide 21.0, Anion Gap 9, BUN 37 H, Creatinine 1.36 H, Estim Creat Clear Calc 29.19, Est GFR (MDRD) Af Amer 48 L, Est GFR (MDRD) Non-Af 40 L, BUN/Creatinine Ratio 27.2 H, Glucose 121 H, Calcium 8.5, Magnesium 2.3 Current Medications Acetaminophen (Tylenol) 650 mg PO Q6H PRN PRN PRN Reason: Pain Score 1-3/Temp > 100.7 F Last Admin: 06/11/19 18:20 Dose: 650 mg Documented by: Albuterol Sulfate (Ventolin Aerosols) 2.5 mg INHALATION Q2H PRN PRN PRN Reason: SHORTNESS OF BREATH Albuterol/Ipratropium (Duoneb) 3 ml INHALATION Q4H.RT [facility] 234 BEDS AT [facility] Last Admin: 06/12/19 06:54 Dose: 3 ml Documented by: Alendronate Sodium (Fosamax) 70 mg PO PATINO [facility] 234 BEDS AT [facility] Aspirin (Ecotrin) 81 mg PO DAILY@0800 [facility] 234 BEDS AT [facility] Last Admin: 06/11/19 08:57 Dose: 81 mg Documented by: Benzonatate (Tessalon Perle) 100 mg PO TID PRN PRN PRN Reason: COUGH Last Admin: 06/11/19 09:06 Dose: 100 mg Documented by: Clonidine (Catapres) 0.3 mg PO TID [facility] 234 BEDS AT [facility] Last Admin: 06/12/19 06:43 Dose: 0.3 mg Documented by: Dextrose (D50w Syringe) 0 gm IV X1 PRN; Protocol PRN Reason: Hypoglycemia Docusate Sodium (Colace) 100 mg PO DAILY [facility] 234 B[facility]S [facility] Last Admin: 06/11/19 08:58 Dose: 100 mg Documented by: Enoxaparin Sodium (Lovenox) 30 mg SC DAILY@1000 [facility] 234 [facility]S [facility] Last Admin: 06/11/19 08:58 Dose: 30 mg Documented by: Glucagon () 1 mg IM .X1 PRN PRN Reason: Hypoglycemia Guaifenesin/Codeine Phosphate (Robitussin Ac) 5 ml PO Q6H PRN PRN PRN Reason: COUGH Last Admin: 06/11/19 18:18 Dose: 5 ml Documented by: Hydralazine HCl (Apresoline) 100 mg PO Q6 [facility] 234 [facility]S [facility] Last Admin: 06/12/19 06:43 Dose: 100 mg Documented by: Azithromycin 500 mg/ Dextrose 255 mls @ 250 mls/hr IV Q24H [facility] 234 BEDS AT [facility] Last Infusion: 06/11/19 23:40 Dose: Infused Documented by: Ceftriaxone Sodium 2 gm/ (Sodium Chloride) 50 mls @ 100 mls/hr IV Q24@2000 [facility] 234 BEDS AT [facility] Last Infusion: 06/11/19 20:50 Dose: Infused Documented by: Labetalol HCl (Trandate) 300 mg PO TID [facility] 234 [facility]S [facility] Last Admin: 06/12/19 06:42 Dose: 300 mg Documented by: Lisinopril (Zestril) 10 mg PO DAILY@1200 [facility] 234 [facility]S [facility] Last Admin: 06/11/19 12:56 Dose: 10 mg Documented by: Lorazepam (Ativan) 0.5 mg PO QHS PRN PRN Reason: ANXIETY Last Admin: 06/11/19 22:36 Dose: 0.5 mg Documented by: Methylcellulose (Citrucel) 2 gm PO BID [facility] 234 BEDS [facility] Last Admin: 06/11/19 21:54 Dose: 2 gm Documented by: Methylprednisolone (Solu-Medrol) 40 mg IV Q8 [facility] 234 B[facility]S AT [facility] Last Admin: 06/12/19 06:42 Dose: 40 mg Documented by: Multivitamins (Allbee W/C Caplet, Thera B Comp/C) 1 capsule PO DAILY [facility] 234 [facility]S [facility] Last Admin: 06/11/19 08:57 Dose: 1 capsule Documented by: Multivitamins/Minerals (Multivitamin With Minerals) 1 tablet PO DAILYCM [facility] 234 BEDS AT [facility] Last Admin: 06/11/19 08:57 Dose: 1 tablet Documented by: Nifedipine (Procardia Xl) 90 mg PO BID [facility] 234 BEDS AT [facility] Last Admin: 06/11/19 21:52 Dose: 90 mg Documented by: Ondansetron HCl (Zofran) 4 mg IV Q8H PRN PRN PRN Reason: NAUSEA/VOMITING Pantoprazole Sodium (Protonix) 20 mg PO DAILY@1200 [facility] Last Admin: 06/11/19 12:56 Dose: 20 mg Documented by: Sodium Chloride () 10 - 40 ml IV UD PRN PRN Reason: SALINE FLUSH Last Admin: 06/11/19 14:55 Dose: 10 ml Documented by: STROKE Vital Signs/Narrative: Vital Signs Temp Pulse Resp BP BP Pulse Ox 06/12/19 06:43 76 138/73 H 06/12/19 06:41 76 138/73 H 06/12/19 03:40 98.3 F 72 18 133/71 H 96 Medical Necessity - Tobacco Use Smoking Status: Former smoker Tobacco Use: Cigarettes Assessment/Plan All Active Problems (Last Reviewed 06/08/19 @ 16:34 by Newton Phillips DO) Pneumonia (Acute) Hypoxia (Acute) Pulmonary hypertension (Acute) Bilateral carotid bruits (Acute) Nonhealing surgical wound (Resolved) Wound dehiscence, surgical (Resolved) Wound, open, back (Resolved) Patient is an 79-year-old lady with multiple comorbidities admitted with progressive shortness of breath and assessment of sepsis secondary to a combination of community-acquired pneumonia as well as COPD made admitted to regular nursing floor for subsequent management 1. Sepsis secondary to pneumonia ~ Suspected to be secondary to streptococci pneumonia, Blood and sputum cultures sent. Patient placed on Rocephin and Zithromax and placed on oxygen titrated to keep also is greater than 90 ?06/12/2019: Patient improving clinically however still remains on oxygen 2. COPD with acute exacerbation ~Precipitated by above management as described above in addition to systemic steroids and aerosol treatment 3. Acute respiratory insufficiency ~Secondary to #1 and #2 patient currently on supplemental oxygen which is being weaned off 4. Hypertension ~ blood pressure controlled, home medications continued with dose adjustment as needed 5. Dyslipidemia ~patient is on statin therapy, continued at home dose 6. Peripheral vascular disease ~Patient currently on aspirin 7. History of diffuse large cell lymphoma ~ with previous chemo currently in remission 8. Osteoporosis ~On Fosamax 9. Obstructive sleep apnea ~Patient is on BiPAP at home 10. Thoracic aortic dissection in August 2018 ~Currently stable 11. Physical deconditioning Secondary to above requested for PT OT eval and social worker palliative care to assist with discharge planning. Had a discussion with patient regarding disposition her preference will be either to rehab or to TCU 12. DVT prophylaxis ~ on enoxaparin Code Visit Inpatient E&M: [id number] Subs Hosp L2
[2019-06-12] MEDS: Multivitamins,Ther W-Minerals Tablet 1 TABLET PO (08:09)
[2019-06-12] MEDS: Enoxaparin 30 MG/0.3 ML Syringe SC (08:09)
[2019-06-12] MEDS: Vitamin B Comp W-C Capsule 1 CAP PO (08:09)
[2019-06-12] MEDS: NIFEdipine 90 MG Tablet PO (08:09)
[2019-06-12] MEDS: Docusate Sodium 100 MG Capsule PO (08:10)
[2019-06-12] MEDS: Aspirin E.C. 81 MG Tablet PO (08:10)
--- NOTE | 2019-06-12 09:37 | CASEMGMT ---
Addendum entered by Adrienne Mcclelland 06/12/19 10:37: SW received message from Kamilla stating pt is bale to discharge to TCU today. Physician updated. Pt updated. Plan: TCU today FAYE Tong Original Note: Social Work Note SW received consult that pt is interested in RU or TCU. Pt doesn't have qualifying diagnosis for RU and TCU does have a bed available today. KAT placed a call to Kamilla with TCU and provided referral. Kamilla states she will need to review pt's medications. SW in to speak with pt. Pt states she prefers RU. SW explained that for RU pt has to have qualifying diagnosis and pt doesn't have a qualifying diagnosis. Pt agreeable to TCU. KAT informed pt that this worker made referral to TCU and is waiting to hear back if they are able to accept pt. Pt states understanding. Plan: TCU pending acceptance FAYE Tong
--- NOTE | 2019-06-12 10:03 | DS.PCM_ITS ---
Discharge Date and Diagnosis - Problem List Patient Problems: Active and Suspected Problems (Last Reviewed 06/08/19 @ 16:34 by Newton Phillips DO) Pneumonia (Acute) Hypoxia (Acute) Date of Admission: 06/08/19 Date of Discharge: 06/12/19 - Primary Discharge Diagnosis Active and Suspected Problems (Last Reviewed 06/08/19 @ 16:34 by Newton Phillips DO) Pneumonia (Acute) Hypoxia (Acute) - Secondary Discharge Diagnosis Chronic Problems (Last Reviewed 06/08/19 @ 16:34 by Newton Phillips DO) COPD exacerbation (Chronic) Abdominal mass (Chronic) check cbc cmp amylase lipase tsh free t4 ca [address] abdomen pelvis Abdominal distension (Chronic) check labs and imaging Dissection of thoracic aorta (Chronic ~09/04/18) Status post TEVAR on 09/04/2018 at [facility] Stage 1 mild COPD by GOLD classification (Chronic) History of stent insertion of renal artery (Chronic ~07/30/18) Bilateral 07/30/18 @ [facility] Incontinence (Chronic) Bradycardia (Chronic) Renal artery stenosis (Chronic) Status post bilateral renal artery stenting on 07/30/2018 at [facility]; Peripheral vascular disease (Chronic) Hyperlipemia, mixed (Chronic) Nonrheumatic mitral valve insufficiency (Chronic) Nonrheumatic aortic valve stenosis (Chronic) Essential (primary) hypertension (Chronic) GERD (gastroesophageal reflux disease) (Chronic) DARRIUS (obstructive sleep apnea) (Chronic) BiPAP 14/10 centimeters of water 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 Electronically Signed: Ariasnany Sakshi, at 14:37 EST Tel , Service support , Summary of Care Provided: Patient is an 79-year-old lady with multiple comorbidities admitted with progressive shortness of breath and assessment of sepsis secondary to a combination of community-acquired pneumonia as well as COPD made admitted to regular nursing floor for subsequent management 1. Sepsis secondary to pneumonia ~ Suspected to be secondary to streptococci pneumonia, Blood and sputum cultures sent. Patient placed on Rocephin and Zithromax and placed on oxygen titrated to keep also is greater than 90 and did improve clinically was discharged to halfway facility once insurance precertification was obtained. 2. COPD with acute exacerbation ~Precipitated by above management as described above in addition to systemic steroids and aerosol treatment 3. Acute respiratory insufficiency ~Secondary to #1 and #2 oxygen titrated to keep saturation greater than 90 4. Hypertension ~ blood pressure controlled, home medications continued with dose adjustment as needed 5. Dyslipidemia ~patient is on statin therapy, continued at home dose 6. Peripheral vascular disease ~Patient currently on aspirin 7. History of diffuse large cell lymphoma ~ with previous chemo currently in remission 8. Osteoporosis ~On Fosamax 9. Obstructive sleep apnea ~Patient is on BiPAP at home 10. Thoracic aortic dissection in August 2018 ~Currently stable 11. Physical deconditioning Secondary to above; transferred to halfway facility to continue with her recovery 12. DVT prophylaxis ~ on enoxaparin Patient Problems: Active and Suspected Problems (Last Reviewed 06/08/19 @ 16:34 by Newton Phililps DO) Pneumonia (Acute) Hypoxia (Acute) Objective: GENERAL: cooperative HEENT: Atraumatic; EYES; Anicteric, Normal Conjunctiva NECK; supple, normal thyroid, RESPIRATORY: Diminished to auscultation CARDIOVASCULAR: Regular S1 S2, GI: soft, normoactive bowel sounds, : No Renal angle tenderness; EXTREMITIES: No edema, no clubbing, MUSCULOSKELETAL: no muscle waisting NEURO: Awake; no lateralizing signs. SKIN: No Rash PSYCH; Flat affect - Physical Exam Vitals/I&O's: Vital Signs Temp Pulse Resp BP Pulse Ox 98.3 F 80 20 H 138/73 H 90 06/12/19 03:40 06/12/19 07:58 06/12/19 07:20 06/12/19 06:43 06/12/19 07:34 Oxygen Flow Rate (L/min) 2 Oxygen Delivery Method Nasal Cannula Weight: 65.3 kg Body Mass Index (BMI) 23.9 Intake and Output for Last 24 Hours 06/10/19 06/11/19 06/12/19 23:59 23:59 23:59 Intake Total 1845 / 1845 2185 / 2185 500 / 500 Output Total 200 / 200 Balance 1645 / 1645 2185 / 2185 500 / 500 Microbiology Past 72 Hours 06/08/19 14:30 Urine, Clean Catch Urine Culture - Final Culture exhibits no growth. 06/08/19 12:00 Blood Culture (Wb) - Right Forearm Blood Culture - Preliminary No growth in 48 hours. 06/08/19 12:00 Blood Culture (Wb) - Anticubital Left Blood Culture - Preliminary No growth in 48 hours. 06/08/19 23:50 Mucosa - Nasopharyngeal Respiratory Panel (PCR) - Final Laboratory Results 06/12/19 05:30: WBC 13.3 H, RBC 3.38 L, Hgb 10.6 L, Hct 33.3 L, MCV 98.5, MCH 31.4, MCHC 31.8 L, RDW Std Deviation 54.6 H, RDW Coeff of Tom 15.1 H, Plt Count 294, MPV 8.9, Neut % (Auto) Not Reportable, Absolute Neuts (auto) 9.8 H, Absolute Lymphs (auto) 1.86, Total Counted 100, Neutrophils % (Manual) 65, Band Neutrophils % 9 H, Lymphocytes % (Manual) 14 L, Monocytes % (Manual) 5, Metamyelocytes % 6 H, Myelocytes % 1 H, Diff Path Review November, Platelet Estimate ADEQUATE, RBC Morphology NORM C+C 06/12/19 05:30: Sodium 142, Potassium 4.2, Chloride 112 H, Carbon Dioxide 21.0, Anion Gap 9, BUN 37 H, Creatinine 1.36 H, Estim Creat Clear Calc 29.19, Est GFR (MDRD) Af Amer 48 L, Est GFR (MDRD) Non-Af 40 L, BUN/Creatinine Ratio 27.2 H, Glucose 121 H, Calcium 8.5, Magnesium 2.3 Current Medications Acetaminophen (Tylenol) 650 mg PO Q6H PRN PRN PRN Reason: Pain Score 1-3/Temp > 100.7 F Last Admin: 06/11/19 18:20 Dose: 650 mg Documented by: Albuterol Sulfate (Ventolin Aerosols) 2.5 mg INHALATION Q2H PRN PRN PRN Reason: SHORTNESS OF BREATH Albuterol/Ipratropium (Duoneb) 3 ml INHALATION Q4H.RT SYL Last Admin: 06/12/19 06:54 Dose: 3 ml Documented by: Alendronate Sodium (Fosamax) 70 mg PO PATINO [facility] Aspirin (Ecotrin) 81 mg PO DAILY@0800 [facility] Last Admin: 06/12/19 08:10 Dose: 81 mg Documented by: Benzonatate (Tessalon Perle) 100 mg PO TID PRN PRN PRN Reason: COUGH Last Admin: 06/11/19 09:06 Dose: 100 mg Documented by: Clonidine (Catapres) 0.3 mg PO TID [facility] Last Admin: 06/12/19 06:43 Dose: 0.3 mg Documented by: Dextrose (D50w Syringe) 0 gm IV X1 PRN; Protocol PRN Reason: Hypoglycemia Docusate Sodium (Colace) 100 mg PO DAILY [facility] Last Admin: 06/12/19 08:10 Dose: 100 mg Documented by: Enoxaparin Sodium (Lovenox) 30 mg SC DAILY@1000 [facility] Last Admin: 06/12/19 08:09 Dose: 30 mg Documented by: Glucagon () 1 mg IM .X1 PRN PRN Reason: Hypoglycemia Guaifenesin/Codeine Phosphate (Robitussin Ac) 5 ml PO Q6H PRN PRN PRN Reason: COUGH Last Admin: 06/11/19 18:18 Dose: 5 ml Documented by: Hydralazine HCl (Apresoline) 100 mg PO Q6 [facility] Last Admin: 06/12/19 06:43 Dose: 100 mg Documented by: Azithromycin 500 mg/ Dextrose 255 mls @ 250 mls/hr IV Q24H [facility] Last Infusion: 06/11/19 23:40 Dose: Infused Documented by: Ceftriaxone Sodium 2 gm/ (Sodium Chloride) 50 mls @ 100 mls/hr IV Q24@2000 [facility] Last Infusion: 06/11/19 20:50 Dose: Infused Documented by: Labetalol HCl (Trandate) 300 mg PO TID [facility] Last Admin: 06/12/19 06:42 Dose: 300 mg Documented by: Lisinopril (Zestril) 10 mg PO DAILY@1200 [facility] Last Admin: 06/11/19 12:56 Dose: 10 mg Documented by: Lorazepam (Ativan) 0.5 mg PO QHS PRN PRN Reason: ANXIETY Last Admin: 06/11/19 22:36 Dose: 0.5 mg Documented by: Methylcellulose (Citrucel) 2 gm PO BID [facility] Last Admin: 06/11/19 21:54 Dose: 2 gm Documented by: Methylprednisolone (Solu-Medrol) 40 mg IV Q8 [facility] Last Admin: 06/12/19 06:42 Dose: 40 mg Documented by: Multivitamins (Allbee W/C Caplet, Thera B Comp/C) 1 capsule PO DAILY [facility] Last Admin: 06/12/19 08:09 Dose: 1 capsule Documented by: Multivitamins/Minerals ([facility] Minerals) [facility] Last Admin: 06/12/19 08:09 Dose: 1 tablet Documented by: Nifedipine (Procardia Xl) 90 mg PO BID [facility] Last Admin: 06/12/19 08:09 Dose: 90 mg Documented by: Ondansetron HCl (Zofran) 4 mg IV Q8H PRN PRN PRN Reason: NAUSEA/VOMITING Pantoprazole Sodium (Protonix) 20 mg PO DAILY@1200 [facility] Last Admin: 06/11/19 12:56 Dose: 20 mg Documented by: Sodium Chloride () 10 - 40 ml IV UD PRN PRN Reason: SALINE FLUSH Last Admin: 06/11/19 14:55 Dose: 10 ml Documented by: Discharge Diet: Low fat/ Low Cholesterol Discharge Activity: Return to Normal Activity Home Medications: Medications to take at Discharge Alendronate Sodium [Fosamax] 70 mg PO PATINO 02/28/15 Multivitamins,Ther W-Minerals [Multivitamin With Minerals] 1 tab PO DAILY 02/28/15 biotin 10,000 mcg capsule 10,000 mcg PO TID cap 11/06/17 aspirin 81 mg tablet,delayed release 81 mg PO DAILY 08/13/18 clonidine HCl 0.3 mg tablet 0.3 mg PO TID tab 08/13/18 docusate sodium 100 mg tablet 100 mg PO DAILY 08/13/18 glucosamine 500 [id number] comp 400 mg-D3 667 unit-C-Mn cap 1 cap PO BID cap 08/13/18 hydralazine 100 mg tablet 100 mg PO Q6H tab 08/13/18 labetalol 200 mg tablet 300 mg PO TID tab 08/13/18 nifedipine ER 90 mg tablet,extended release 90 mg PO BID tab 08/13/18 omega-3 fatty acids 1,000 mg capsule 2,000 mg PO TID 08/13/18 lisinopril 10 mg tablet 10 mg PO DAILY@1200 0520/19 vitamin B complex tablet 1 tab PO DAILY 12/01/18 Cyanocobalamin (Vitamin B-12) [Vitamin B-12] 5,000 mcg PO DAILY 06/08/19 Methylcellulose (with Sugar) [Citrucel Powder] 850 gm PO BID 06/08/19 Omeprazole 20 mg PO DAILY@1200 06/08/19 Acetaminophen [Tylenol Tablet] 650 mg PO Q6H PRN PRN tab 06/12/19 Albuterol Aerosols [Ventolin Aerosols] 2.5 mg INHALATION Q2H PRN PRN vial.neb. 06/12/19 Benzonatate [Tessalon Perle] 100 mg PO TID PRN PRN cap 06/12/19 Cefdinir [Omnicef [equiv]] 300 mg PO Q12H #14 cap 06/12/19 Docusate Sodium [Colace] 100 mg PO DAILY cap 06/12/19 Guaifenesin/Codeine [Robitussin AC] 5 ml PO Q6H PRN PRN udc 06/12/19 Lorazepam [Ativan] 0.5 mg PO QHS PRN 5 Days #5 tab 06/12/19 Prednisone 20 mg PO BID #10 tab 06/12/19 Following Prescrptions Were Given to Patient: Lorazepam [Ativan] 0.5 mg PO QHS PRN 5 Days #5 tab PRN Reason: Anxiety Prescription Printed Cefdinir [Omnicef [equiv]] 300 mg PO Q12H #14 cap Prescription Printed Prednisone 20 mg PO BID #10 tab Prescription Printed Primary Care Physician: Jason Chinchilla MD [Primary Care Provider] - Please follow up with your Primary Care Physician in: IN 1-2 WEEKS Disposition: Care Home facility Minutes spent on discharge:: 45 Patient Condition:: Stable Medical Necessity - Tobacco Use Smoking Status: Former smoker Tobacco Use: Cigarettes Meaningful Use Info Meaningful Use Diagnoses (Choose all that apply): None applicable Code Visit Inpatient E&M: 01972 Disch Hosp
--- NOTE | 2019-06-12 10:03 | PCM.TXEXTCAR ---
- Diet 06/08/19 17:31 Diet: Regular Diet Food consistency:: Regular Liquid Consistency:: Regular/Thin - Routine Orders/Code Status O2 Frequency: PRN Keep PO Greater than or Equal to (%): 90 Code Status: Full Code - Therapies Physical Therapy: Eval and Treat Occupational Therapy: Eval and Treat - Allergies/Procedures Done in Hospital Allergies/Adverse Reactions: Allergies bisoprolol Allergy (Verified 06/08/19 11:30) Unknown levofloxacin [From Levaquin] Allergy (Verified 06/08/19 11:30) Unknown meloxicam Allergy (Verified 06/08/19 11:30) Unknown Sulfa (Sulfonamide Antibiotics) Allergy (Verified 06/08/19 11:30) Unknown CODEINE COUGH SYRUP Adverse Reaction (Uncoded 06/08/19 11:30) Other BP ELEVATION. PT STATES ABLE TO TAKE PAIN MEDS WITH CODEINE WITHOUT TROUBLES - Type of Care/Length of Stay Estimated LOS: Convalescent Care Less Than 30 days Type of Care Needed: Skilled Rehab Potential: Good Prognosis: Good - Additional Orders/Day of Discharge Day of Discharge: 06/12/19 - Dietary and Speech Recommendations Dietitian Recommendations/Changes: Cardiac/low sodium diet as needed. - Follow Up Care Primary Care Physician: Jason Chinchilla MD [Primary Care Provider] - Please follow up with your Primary Care Physician in: IN 2 WEEKS
[2019-06-12] MEDS: Methylcellulose 2 GM Bottle PO (10:29)
--- NOTE | 2019-06-12 11:07 | NURSING ---
Report called to [facility]ab[facility] CORONEL in TCU.
[2019-06-12] MEDS: Lisinopril 10 MG Tablet PO (12:40)
[2019-06-12] MEDS: Pantoprazole Sodium 20 MG Tablet PO (12:41)
[2019-06-12] MEDS: 0.9% Saline Lock 10 ML Syringe IV (13:46)
[2019-06-12 14:23] LABS: Pathologist Review Reviewed
== END 2019-06-12 14:07 | disposition skilled nursing facility (03) | DRG 871 ==
LOC: ED 12:15 → MS3 16:21
PROVIDERS: Family Medicine; Nurse Practitioner Family; Emergency Provider Emergency Medicine; Family Provider Family Medicine; PCP Family Medicine; Visit Provider Internal Medicine
DX: A41.9 Sepsis, unspecified organism (principal); J15.4 Pneumonia due to other streptococci; J44.1 Chronic obstructive pulmonary disease with (acute) exacerbation; C83.30 Diffuse large B-cell lymphoma, unspecified site; J44.0 Chronic obstructive pulmonary disease with (acute) lower respiratory infection; N18.3 Chronic kidney disease, stage 3 (moderate); I12.9 Hypertensive chronic kidney disease with stage 1 through stage 4 chronic kidney disease, or unspecified chronic kidney disease; M81.0 Age-related osteoporosis without current pathological fracture; G47.33 Obstructive sleep apnea (adult) (pediatric); R09.02 Hypoxemia; R06.89 Other abnormalities of breathing; I73.9 Peripheral vascular disease, unspecified; E78.2 Mixed hyperlipidemia; K21.9 Gastro-esophageal reflux disease without esophagitis; Z79.83 Long term (current) use of bisphosphonates; Z87.891 Personal history of nicotine dependence; Z86.79 Personal history of other diseases of the circulatory system; Z79.82 Long term (current) use of aspirin; Z98.1 Arthrodesis status
CPT/HCPCS: 36415; 71046; 80048; 80053; 81001; 83605; 83735; 85025; 85027; 85610; 85730; 87040; 87086; 87449; 87633; 87804; 93005; 94640; 97110; 97116; 97162; 97166; 97530; 99251; 99283; J7030; A4216; G0463; J0696

== ENCOUNTER 2019-06-12 14:38 | Inpatient (IN) | payer MEDICARE, OTHER, SELFPAY ==
[2019-06-08 16:46] VITALS: BMI 23.9
[2019-06-12 14:40] VITALS: O2SAT 95
[2019-06-12 15:00] VITALS: BP 147/75; PULSE 81; RESP 16; TEMP 37.1; O2SAT 91; BMI 25.5; BMI 25.6
--- NOTE | 2019-06-12 15:24 | NURSING ---
Pt arrived at 14:20 from [facility]
[2019-06-12 17:44] VITALS: PULSE 81
[2019-06-12] MEDS: Methylcellulose 2 GM Bottle PO (17:44)
[2019-06-12] MEDS: predniSONE 20 MG Tablet PO (17:44)
[2019-06-12] MEDS: hydrALAZINE 50 MG Tablet 100 MG PO ×2 (17:44→23:11)
[2019-06-12] MEDS: Cefdinir 300 MG Capsule PO (17:44)
[2019-06-12] MEDS: NIFEdipine 90 MG Tablet PO (17:46)
[2019-06-12] MEDS: guaiFENesin/Codeine 5 ML UDC PO (20:34)
[2019-06-12 20:35] VITALS: PULSE 78
--- NOTE | 2019-06-12 20:50 | HP.PCM_ITS ---
<Axel Payne - Last Filed: 06/13/19 12:42> Problem List (1) Debility Status: Acute (2) Pneumonia Status: Acute (3) COPD exacerbation Status: Chronic (4) Hypoxia Status: Acute (5) Abdominal mass Status: Chronic Comment: check cbc cmp amylase lipase tsh free t4 ca [address] abdomen pelvis (6) Dissection of thoracic aorta Status: Chronic Comment: Status post TEVAR on 09/04/2018 at [facility] (7) Stage 1 mild COPD by GOLD classification Status: Chronic (8) History of stent insertion of renal artery Status: Chronic Comment: Bilateral 07/30/18 @ [facility] (9) Pulmonary hypertension Status: Acute Comment: RVSP 53 mmHg (10) Bilateral carotid bruits Status: Acute (11) Incontinence Status: Chronic (12) Hyperlipemia, mixed Status: Chronic (13) Nonrheumatic mitral valve insufficiency Status: Chronic (14) Nonrheumatic aortic valve stenosis Status: Chronic (15) Essential (primary) hypertension Status: Chronic (16) GERD (gastroesophageal reflux disease) Status: Chronic (17) DARRIUS (obstructive sleep apnea) Status: Chronic Comment: BiPAP 14/10 centimeters of water (18) 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 Comment: Status post R CHOP ?6 and maintenance rituximab ?5 years, now in remission History of Present Illness Date of Admission: 06/12/19 Chief Complaint: Here for rehabilitation, strengthening, prior to discharge home with The patient is a 79 year old F with below past medical history who presented to [facility] emergency department on 06/08/2019 with complaints of shortness of breath. 06-08-2019?chest x-ray showed bilateral hilar adenopathy with patchy changes involving both bases which is new when compared to prior study. Assessment of sepsis secondary to combination of community acquired pneumonia as well as COPD. Blood and sputum cultures sent and patient managed on the regular nursing floor with Rocephin and Zithromax and placed on oxygen to keep saturations greater than 90. Routine aerosols and systemic steroids given for COPD exacerbation. Acute respiratory insufficiency secondary to pneumonia and COPD exacerbation, patient placed on supplemental O2 06-08-2019?respiratory panel negative, Legionella antigen negative, strep pneumo antigen negative, urine culture negative, blood culture negative. 06-12-2019 patient admitted to TCU with debility, here for rehabilitation and strengthening prior to being discharged home with . Patient currently denies any acute concerns, states that she is still short of breath and having a nonproductive cough, however her symptoms are gradually improving. Does note that an abdominal mass was found by her [employer] [facility] and that a CT is ordered to be performed as an outpatient in the next couple of weeks. Past Medical History Past Medical History (Chronic Problems): Chronic Problems (Last Reviewed 06/08/19 @ 16:34 by Newton Phillips DO) COPD exacerbation (Chronic) Abdominal mass (Chronic) check cbc cmp amylase lipase tsh free t4 ca [address] abdomen pelvis Abdominal distension (Chronic) check labs and imaging Dissection of thoracic aorta (Chronic ~09/04/18) Status post TEVAR on 09/04/2018 at [facility] Stage 1 mild COPD by GOLD classification (Chronic) History of stent insertion of renal artery (Chronic ~07/30/18) Bilateral 07/30/18 @ [facility] Incontinence (Chronic) Bradycardia (Chronic) Renal artery stenosis (Chronic) Status post bilateral renal artery stenting on 07/30/2018 at [facility]; Peripheral vascular disease (Chronic) Hyperlipemia, mixed (Chronic) Nonrheumatic mitral valve insufficiency (Chronic) Nonrheumatic aortic valve stenosis (Chronic) Essential (primary) hypertension (Chronic) GERD (gastroesophageal reflux disease) (Chronic) DARRIUS (obstructive sleep apnea) (Chronic) BiPAP 14/10 centimeters of water 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) Status post R CHOP ?6 and maintenance rituximab ?5 years, now in remission Medical History: Medical History (Last Reviewed 06/08/19 @ 16:34 by Newton Phillips DO) Dissection of thoracic aorta (Chronic) Onset Date: ~09/04/18 I71.01 Status post TEVAR on 09/04/2018 at [facility] History of stent insertion of renal artery (Chronic) Onset Date: ~07/30/18 Z98.890 Bilateral 07/30/18 @ [facility] Bilateral carotid bruits (Acute) R09.89 Incontinence (Chronic) R32 Bradycardia (Chronic) R00.1 Renal artery stenosis (Chronic) I70.1 Status post bilateral renal artery stenting on 07/30/2018 at [facility]; Peripheral vascular disease (Chronic) I73.9 Hyperlipemia, mixed (Chronic) E78.2 Nonrheumatic mitral valve insufficiency (Chronic) I34.0 Nonrheumatic aortic valve stenosis (Chronic) I35.0 Essential (primary) hypertension (Chronic) I10 GERD (gastroesophageal reflux disease) (Chronic) K21.9 DARRIUS (obstructive sleep apnea) (Chronic) G47.33 BiPAP 14/10 centimeters of water 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) Z85.72 Status post R CHOP ?6 and maintenance rituximab ?5 years, now in remission Postlaminectomy syndrome M96.1 Status post T12, ileum fusion and L2, 3 decompression with drain placement on T12016 at [facility] Status post lumbar laminectomy fusion 2013 complicated by postlaminectomy syndrome Carotid bruit R09.89 History of deep venous thrombosis (DVT) of distal vein of right lower extremity Z86.718 Provoked in the setting of foot surgery, status post 6 months NOAC Nonhealing surgical wound (Resolved) T81.89XA Wound dehiscence, surgical (Resolved) Wound, open, back (Resolved) S21.209A Allergies bisoprolol Allergy (Verified 06/08/19 11:30) Unknown levofloxacin [From Levaquin] Allergy (Verified 06/08/19 11:30) Unknown meloxicam Allergy (Verified 06/08/19 11:30) Unknown Sulfa (Sulfonamide Antibiotics) Allergy (Verified 06/08/19 11:30) Unknown CODEINE COUGH SYRUP Adverse Reaction (Uncoded 06/08/19 11:30) Other BP ELEVATION. PT STATES ABLE TO TAKE PAIN MEDS WITH CODEINE WITHOUT TROUBLES Home Medications: Ambulatory Orders Medication Instructions Recorded Alendronate Sodium [Fosamax] 70 mg PO PATINO 02/28/15 Multivitamins,Ther W-Minerals 1 tab PO DAILY 02/28/15 [Multivitamin With Minerals] biotin 10,000 mcg capsule 10,000 mcg PO TID cap 11/06/17 aspirin 81 mg tablet,delayed 81 mg PO DAILY 08/13/18 release clonidine HCl 0.3 mg tablet 0.3 mg PO TID tab 08/13/18 docusate sodium 100 mg tablet 100 mg PO DAILY 08/13/18 glucosamine 500 1 cap PO BID cap 08/13/18 kt-[id number] comp 400 mg-D3 667 unit-C-Mn cap hydralazine 100 mg tablet 100 mg PO Q6H tab 08/13/18 labetalol 200 mg tablet 300 mg PO TID tab 08/13/18 nifedipine ER 90 mg 90 mg PO BID tab 08/13/18 tablet,extended release omega-3 fatty acids 1,000 mg 2,000 mg PO TID 08/13/18 capsule lisinopril 10 mg tablet 10 mg PO DAILY@1200 12/01/18 vitamin B complex tablet 1 tab PO DAILY 12/01/18 Cyanocobalamin (Vitamin B-12) 5,000 mcg PO DAILY 06/08/19 [Vitamin B-12] Methylcellulose (with Sugar) 850 gm PO BID 06/08/19 [Citrucel Powder] Omeprazole 20 mg PO DAILY@1200 06/08/19 Acetaminophen [Tylenol Tablet] 650 mg PO Q6H PRN PRN tab 06/12/19 Albuterol Aerosols [Ventolin 2.5 mg INHALATION Q2H PRN PRN 06/12/19 Aerosols] vial.neb. Benzonatate [Tessalon Perle] 100 mg PO TID PRN PRN cap 06/12/19 Cefdinir [Omnicef [equiv]] 300 mg PO Q12H 06/12/19 Docusate Sodium [Colace] 100 mg PO DAILY 06/12/19 Guaifenesin/Codeine [Robitussin AC] 5 ml PO Q6H PRN PRN udc 06/12/19 Lorazepam [Ativan] 0.5 mg PO QHS PRN 5 Days #5 tab 06/12/19 Prednisone 20 mg PO BID 06/12/19 Surgical History: Surgical History (Last Reviewed 06/08/19 @ 16:34 by Newton Phillips DO) History of bunionectomy of right great toe Z98.890 History of left hip replacement Z96.642 History of partial hysterectomy Z98.890, Z90.710 [facility] History of carpal tunnel release Z98.890 right hand, 08/2015 History of left knee replacement Z96.652 12/2017 Previous back surgery Z98.890 04/2017, redid previous fusion (S1-S4) and fused S1-T12, Dr. 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 Smoking Status: Former smoker - *Family History Maternal Family History: Family History (Last Reviewed 06/08/19 @ 16:34 by Newton Phillips DO) Mother CAD (coronary artery disease) Daughter Breast cancer Sister Breast cancer Father Brain aneurysm History Items: Hypertension Paternal Family History: Family History (Last Reviewed 06/08/19 @ 16:34 by Newton Phillips DO) Mother CAD (coronary artery disease) Daughter Breast cancer Sister Breast cancer Father Brain aneurysm History Items: Heart Disease Review of Systems Constitutional: Denies: Anorexia, Chills, Fever, Malaise, Weight Change HEENT: Denies: Head Aches, Sinus Congestion, Sinus Drainage Cardiovascular: Denies: Chest Pain, Orthopnea, Palpitations Respiratory: Reports: Cough, Shortness of Breath, Shortness of breath upon exertion. Denies: Shortness of breath at rest, Sputum production, Wheezing Gastrointestinal: Denies: Abdominal Pain, Nausea, Vomiting Genitourinary: Denies: Dysuria Musculoskeletal: Reports: - - generalized weakness. Denies: Joint Pain, Joint Tenderness Skin: Denies: Rash, Wounds Neurological: Denies: Numbness, Tingling, Focal weakness Psychiatric: Denies: Anxiety, Depression, Homicidal Ideations, Suicidal Ideations Hematologic/ Lymphatic: Denies: Easy Bruising, Easy Bleeding VTE Information - Inpt Only VTE Present on Admission: No VTE Mechan Device Prophylaxis: None VTE Pharm Prophylaxis ordered?: Yes Patient Problems: Active and Suspected Problems (Last Reviewed 06/08/19 @ 16:34 by Newton Phillips DO) Debility (Acute) - Physical Exam Vitals/I&O's: Vital Signs Temp Pulse Resp BP Pulse Ox 98.8 F 81 16 147/75 H 91 06/12/19 15:00 06/12/19 17:44 06/12/19 15:00 06/12/19 15:00 06/12/19 15:00 Oxygen Delivery Method Room Air Weight: 153 lb 10.595 oz Body Mass Index (BMI) 25.5 Intake and Output for Last 24 Hours 06/10/19 06/11/19 06/12/19 23:59 23:59 23:59 Intake Total 240 / 240 Balance 240 / 240 General: Alert, Oriented x3, Cooperative, No apparent distress HEENT: Atraumatic, PERRLA, EOMI, Normocephalic Oral: Moist Mucosa Neck: Supple, No JVD, Negative Carotid Bruits Lungs: No rhonchi, No rales, Diminished - bilateral bases, Wheezes - expiratory wheezing Cardiovascular: Regular rate, Normal S1, Normal S2, No murmurs Abdomen: Bowel Sounds Present, Soft, Non Tender, Distended, Hernia - Umbilicus Extremities: Capillary Refill Less than 3 Seconds, Edema - +1 pitting bilateral lower extremities Skin: No rashes, No breakdown Musculoskeletal: No Tenderness to Palpation of Joints or Extremities Lymphatic: No Cervical, Supraclavicular, or Inguinal Adenopathy Neurological: Cranial nerves II-XII grossly intact, Neuro grossly intact Psych/Mental Status: Normal Affect, Appropriate Current Medications Acetaminophen (Tylenol) 650 mg PO Q6H PRN PRN PRN Reason: Pain Score 1-3/Temp > 100.7 F Albuterol Sulfate (Ventolin Aerosols) 2.5 mg INHALATION Q2H PRN PRN PRN Reason: SHORTNESS OF BREATH Alendronate Sodium (Fosamax) 70 mg PO Patino@0600 [facility] Aspirin (Ecotrin) 81 mg PO DAILY [facility] Benzonatate (Tessalon Perle) 100 mg PO TID PRN PRN PRN Reason: COUGH Cefdinir (Omnicef [Equiv]) 300 mg PO Q12H [facility] Stop: 06/19/19 06:01 Last Admin: 06/12/19 17:44 Dose: 300 mg Documented by: Clonidine (Catapres) 0.3 mg PO 0600,1400,2200 [facility] Docusate Sodium (Colace) 100 mg PO DAILY [facility] Guaifenesin/Codeine Phosphate (Robitussin Ac) 5 ml PO Q6H PRN PRN PRN Reason: COUGH Last Admin: 06/12/19 20:34 Dose: 5 ml Documented by: Hydralazine HCl (Apresoline) 100 mg PO Q6 [facility] Last Admin: 06/12/19 17:44 Dose: 100 mg Documented by: Labetalol HCl (Trandate) 300 mg PO 0600,1400,2200 [facility] Lisinopril (Zestril) 10 mg PO DAILY@1200 [facility] Lorazepam (Ativan) 0.5 mg PO QHS PRN PRN Reason: ANXIETY Methylcellulose (Citrucel) 2 gm PO BID [facility] Last Admin: 06/12/19 17:44 Dose: 2 gm Documented by: Multivitamins/Minerals (Multivitamin With Minerals) 1 tablet PO DAILY@0800 [facility] Nifedipine (Procardia Xl) 90 mg PO BID [facility] Last Admin: 06/12/19 17:46 Dose: 90 mg Documented by: Pantoprazole Sodium (Protonix) 20 mg PO 1200 SYL Prednisone () 20 mg PO BID [facility] Stop: 06/17/19 06:01 Last Admin: 06/12/19 17:44 Dose: 20 mg Documented by: Tuberculin PPD (Tubersol, Aplisol, Ppd) 5 tu ID [id number] ONE Stop: 06/13/19 10:01 Tuberculin PPD (Tubersol, Aplisol, Ppd) 5 tu ID X1 ONE Stop: 06/20/19 10:01 Assessment/Plan All Active Problems (Last Reviewed 06/08/19 @ 16:34 by Newton Phillips, ) Pneumonia (Acute) Hypoxia (Acute) Debility (Acute) Pulmonary hypertension (Acute) Bilateral carotid bruits (Acute) Nonhealing surgical wound (Resolved) Wound dehiscence, surgical (Resolved) Wound, open, back (Resolved) This is an 79 year old female with below past medical history hospitalized for CAP, sepsis, and COPD exacerbation will be admitted to TCU with debility, here for rehabilitation, strengthening, prior to being discharged home with . * Debility?PT/OT. * Pain?acetaminophen 650 every 6 hours as needed pain (1?10) * Bowel?MiraLAX, senna, Dulcolax as needed * Adult immunization?administered Prevnar 13, Pneumovax 23, Fluzone as necessary * DVT prophylaxis?Lovenox 30 mg due to history CKD * Sepsis secondary to pneumonia?Omnicef, monitor periodic CBCs, recent blood cultures negative. * COPD with acute exacerbation?continue prednisone, as needed DuoNeb aerosols, PRN Tessalon and cough syrup with codeine * Acute respiratory insufficiency?supplemental O2 to keep sats greater than 90% * Obstructive sleep apnea?continue home BiPAP therapy * Hypertension?continue current home regimen of current antihypertensives * Peripheral vascular disease?continue aspirin, does take as needed furosemide at home for lower extremity edema, will order if edema worsens * History of diffuse large cell lymphoma?with previous chemo currently in remission * Osteoporosis?continue with Fosamax * Thoracic aortic dissection August 2018?currently stable without any complaints at this time * Anxiety?PRN lorazepam * GERD?continue with PPI pantoprazole. * Abdominal distention?CT ordered by [employer] [facility] to be done as an outpatient Discussed patient and plan of care with Dr. Jenkins and she agrees. <Isrrael Carty Chi - Last Filed: 06/15/19 08:21> History of Present Illness The patient is a 79 year old F [] Past Medical History Medical History: Medical History (Last Reviewed 06/08/19 @ 16:34 by Newton Phillips DO) Dissection of thoracic aorta (Chronic) Onset Date: ~09/04/18 I71.01 Status post TEVAR on 09/04/2018 at [facility] History of stent insertion of renal artery (Chronic) Onset Date: ~07/30/18 Z98.890 Bilateral 07/30/18 @ [facility] Bilateral carotid bruits (Acute) R09.89 Incontinence (Chronic) R32 Bradycardia (Chronic) R00.1 Renal artery stenosis (Chronic) I70.1 Status post bilateral renal artery stenting on 07/30/2018 at [facility]; Peripheral vascular disease (Chronic) I73.9 Hyperlipemia, mixed (Chronic) E78.2 Nonrheumatic mitral valve insufficiency (Chronic) I34.0 Nonrheumatic aortic valve stenosis (Chronic) I35.0 Essential (primary) hypertension (Chronic) I10 GERD (gastroesophageal reflux disease) (Chronic) K21.9 DARRIUS (obstructive sleep apnea) (Chronic) G47.33 BiPAP 14/10 centimeters of water 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) Z85.72 Status post R CHOP ?6 and maintenance rituximab ?5 years, now in remission Postlaminectomy syndrome M96.1 Status post T12, ileum fusion and L2, 3 decompression with drain placement on T12016 at [facility] Status post lumbar laminectomy fusion 2013 complicated by postlaminectomy syndrome Carotid bruit R09.89 History of deep venous thrombosis (DVT) of distal vein of right lower extremity Z86.718 Provoked in the setting of foot surgery, status post 6 months NOAC Nonhealing surgical wound (Resolved) T81.89XA Wound dehiscence, surgical (Resolved) Wound, open, back (Resolved) S21.209A Allergies bisoprolol Allergy (Verified 06/08/19 11:30) Unknown levofloxacin [From Levaquin] Allergy (Verified 06/08/19 11:30) Unknown meloxicam Allergy (Verified 06/08/19 11:30) Unknown Sulfa (Sulfonamide Antibiotics) Allergy (Verified 06/08/19 11:30) Unknown CODEINE COUGH SYRUP Adverse Reaction (Uncoded 06/08/19 11:30) Other BP ELEVATION. PT STATES ABLE TO TAKE PAIN MEDS WITH CODEINE WITHOUT TROUBLES Surgical History: Surgical History (Last Reviewed 06/08/19 @ 16:34 by Newton Phillips DO) History of bunionectomy of right great toe Z98.890 History of left hip replacement Z96.642 History of partial hysterectomy Z98.890, Z90.710 [facility] History of carpal tunnel release Z98.890 right hand, 08/2015 History of left knee replacement Z96.652 12/2017 Previous back surgery Z98.890 04/2017, redid previous fusion (S1-S4) and fused S1-T12, Dr. Aleksandar Moore at [facility] S/P lumbar fusion Z98.1 Status post right knee replacement Z96.651 - *Family History Maternal Family History: Family History (Last Reviewed 06/08/19 @ 16:34 by Newton Phillips DO) Mother CAD (coronary artery disease) Daughter Breast cancer Sister Breast cancer Father Brain aneurysm Paternal Family History: Family History (Last Reviewed 06/08/19 @ 16:34 by Newton Phillips DO) Mother CAD (coronary artery disease) Daughter Breast cancer Sister Breast cancer Father Brain aneurysm - Physical Exam Vitals/I&O's: Vital Signs Temp Pulse Resp BP Pulse Ox 98.4 F 76 18 141/74 H 92 06/14/19 14:06 06/15/19 06:17 06/14/19 19:15 06/15/19 06:17 06/14/19 20:44 Oxygen Flow Rate (L/min) 92 Oxygen Delivery Method Room Air Weight: 69.7 kg Body Mass Index (BMI) 25.5 Intake and Output for Last 24 Hours 06/13/19 06/14/19 06/15/19 23:59 23:59 23:59 Intake Total 380 / 380 960 / 960 Balance 380 / 380 960 / 960 Current Medications Acetaminophen (Tylenol) 650 mg PO Q6H PRN PRN PRN Reason: Pain Score 1-3/Temp > 100.7 F Albuterol Sulfate (Ventolin Aerosols) 2.5 mg INHALATION Q2H PRN PRN PRN Reason: SHORTNESS OF BREATH Last Admin: 06/13/19 15:24 Dose: 2.5 mg Documented by: Albuterol/Ipratropium (Duoneb) 3 ml INHALATION Q6H.RT [facility] Last Admin: 06/15/19 07:30 Dose: Not Given Documented by: Alendronate Sodium (Fosamax) 70 mg PO Patino@0600 [facility] Last Admin: 06/14/19 05:41 Dose: 70 mg Documented by: Aspirin (Ecotrin) 81 mg PO DAILY [facility] Last Admin: 06/15/19 06:17 Dose: 81 mg Documented by: Benzonatate (Tessalon Perle) 100 mg PO TID PRN PRN PRN Reason: COUGH Bisacodyl (Dulcolax) 10 mg PO DAILY PRN PRN Reason: Constipation Calamine/Phenol (Calmoseptine Ointment) 1 applic TOPICAL 0600,2200 [facility]; Protocol Last Admin: 06/15/19 06:20 Dose: 1 applicatio Documented by: Cefdinir (Omnicef [Equiv]) 300 mg PO Q12H [facility] Stop: 06/19/19 06:01 Last Admin: 06/15/19 06:17 Dose: 300 mg Documented by: Clonidine (Catapres) 0.3 mg PO 0600,1400,2200 [facility] Last Admin: 06/15/19 06:17 Dose: 0.3 mg Documented by: Enoxaparin Sodium (Lovenox) 40 mg SC DAILY [facility] Last Admin: 06/15/19 06:20 Dose: 40 mg Documented by: Guaifenesin/Codeine Phosphate (Robitussin Ac) 5 ml PO Q6H PRN PRN PRN Reason: COUGH Last Admin: 06/14/19 17:21 Dose: 5 ml Documented by: Hydralazine HCl (Apresoline) 100 mg PO Q6 [facility] Last Admin: 06/15/19 06:17 Dose: 100 mg Documented by: Labetalol HCl (Trandate) 300 mg PO 0600,1400,2200 [facility] Last Admin: 06/15/19 06:16 Dose: 300 mg Documented by: Lisinopril (Zestril) 10 mg PO DAILY@1200 [facility] Last Admin: 06/14/19 11:39 Dose: 10 mg Documented by: Lorazepam (Ativan) 0.5 mg PO QHS PRN PRN Reason: ANXIETY Last Admin: 06/14/19 23:42 Dose: 0.5 mg Documented by: Methylcellulose (Citrucel) 2 gm PO BID [facility] Last Admin: 06/15/19 06:14 Dose: 2 gm Documented by: Multi-Ingredient Cream (Eucerin) 1 applic TOPICAL QHS [facility]; Protocol Last Admin: 06/14/19 21:06 Dose: 1 applicatio Documented by: Multivitamins/Minerals (Multivitamin With Minerals) 1 tablet PO DAILY@0800 [facility] Last Admin: 06/14/19 07:47 Dose: 1 tablet Documented by: Nifedipine (Procardia Xl) 90 mg PO BID [facility] Last Admin: 06/15/19 06:17 Dose: 90 mg Documented by: Nystatin (Mycostatin Powder) 1 applic TOPICAL 0600,2200 [facility]; Protocol Last Admin: 06/15/19 06:21 Dose: 1 applicatio Documented by: Pantoprazole Sodium (Protonix) 20 mg PO 1200 [facility] Last Admin: 06/14/19 11:39 Dose: 20 mg Documented by: Prednisone () 20 mg PO BID [facility] Stop: 06/17/19 06:01 Last Admin: 06/15/19 06:17 Dose: 20 mg Documented by: Senna (Senokot) 1 tablet PO BID [facility] Last Admin: 06/15/19 06:17 Dose: 1 tablet Documented by: Tuberculin PPD (Tubersol, Aplisol, Ppd) 5 tu ID [id number] ONE Stop: 06/20/19 10:01 Assessment/Plan I interviewed and examined resident independently and agree with plan as documented above.
[2019-06-12] MEDS: Labetalol 200 MG Tablet 300 MG PO (21:05)
[2019-06-12] MEDS: cloNIDine HCl 0.2 MG Tablet 0.3 MG PO (21:05)
--- NOTE | 2019-06-12 22:51 | NURSING ---
Admission information reviewed with PRE PRESS PROOFER, N.O. entered.
[2019-06-12 23:11] VITALS: BP 132/74; PULSE 70
[2019-06-12] MEDS: LORazepam 0.5 MG Tablet PO (23:11)
[2019-06-13] VITALS (9 sets, daily range): BP systolic 125–164; BP diastolic 61–69; PULSE 69–86; RESP 18–22; TEMP 37; O2SAT 90–93
[2019-06-13] MEDS: NIFEdipine 90 MG Tablet PO ×2 (06:25→17:39)
[2019-06-13] MEDS: Methylcellulose 2 GM Bottle PO ×2 (06:25→17:39)
[2019-06-13] MEDS: predniSONE 20 MG Tablet PO ×2 (06:26→17:39)
[2019-06-13] MEDS: cloNIDine HCl 0.2 MG Tablet 0.3 MG PO ×3 (06:26→21:00)
[2019-06-13] MEDS: Cefdinir 300 MG Capsule PO ×2 (06:26→17:39)
[2019-06-13] MEDS: Labetalol 200 MG Tablet 300 MG PO ×3 (06:27→21:00)
[2019-06-13] MEDS: hydrALAZINE 50 MG Tablet 100 MG PO ×3 (06:27→17:39)
[2019-06-13] MEDS: Senna Tablet 1 TABLET PO ×2 (06:33→17:39)
[2019-06-13] MEDS: Enoxaparin 30 MG/0.3 ML Syringe SC (06:34)
[2019-06-13] MEDS: Aspirin E.C. 81 MG Tablet PO (06:35)
[2019-06-13 07:21] LABS: Hematocrit 35.5 % (37-47); Hemoglobin 11.6 g/dL (12.0-15.0); Mean Corp Hgb Conc 32.7 g/dL (32-36); Mean Corpuscular Hgb 32.1 pg (27.0-32.0); Mean Corpuscular Volume 98.3 fL (81-99); Mean Platelet Vol. 8.8 fl (6.2-12.0); POSITIVE COUNT YES; POSITIVE MORPHOLOGY YES; Platelet Count 308 K/mm3 (150-450); RBC Distribution Width CV 14.7 % (11.6-14.6); RBC Distribution Width SD 53.3 fl (35.1-43.9); Red Blood Count 3.61 M/mm3 (4.2-5.4); White Blood Count 15.3 K/mm3 (4.4-11.0)
[2019-06-13 07:33] LABS: Differential Indicated MANUAL DIFF
[2019-06-13 07:57] LABS: Lymphocyte 10 % (19-41); Metamyelocyte 3 % (0-1); Monocyte 5 % (0-10); Myelocyte 7 (0-0); Neutrophil-Band 2 % (0-5); Neutrophil-Segmented 72 % (47-70); Platelet Estimate ADEQUATE (ADEQ); Promyelocyte 1 (0-0); Red Cell Morphology NORM C+C NORMAL (NORM C&C); Total Cells Counted 100 (MANUAL DIFF)
[2019-06-13 08:00] LABS: Absolute Lymphocyte Count 1.53 X10^3/uL (0.83-4.51); Absolute Neutrophil Count 11.3 X10^3/uL (2.0-7.7)
[2019-06-13 08:03] LABS: Anion Gap 10 (5-15); BUN 34 mg/dL (7-18); BUN/Creat Ratio 26.8 RATIO (10-20); Calcium,Total 8.8 mg/dL (8.5-10.1); Chloride 108 mmol/L (98-107); Creatinine, Serum 1.27 mg/dL (0.55-1.02); EST Glomerular Filtration Rate 43 mL/min (>60); Est Glom Filt Rate - Afr Amer 52 mL/min (>60); Estimated Creatinine Clearance 31.26 ml/min; Glucose 147 mg/dL (74-106); Potassium 3.9 mmol/L (3.5-5.1); Sodium Level 140 mmol/L (136-145)
[2019-06-13] MEDS: Menthol/Lanolin/Calamine/Znox 113 GM Tube 1 APPLIC TOPICAL ×2 (09:17→21:02)
[2019-06-13] MEDS: Multivitamins,Ther W-Minerals Tablet 1 TABLET PO (09:17)
[2019-06-13] MEDS: Nystatin Powder 15gm Bottle 1 APPLIC TOPICAL ×2 (09:17→21:02)
[2019-06-13] MEDS: Tuberculin,Purif.prot.deriv. 50 TU/ML Vial 5 ML ID (11:07)
[2019-06-13] MEDS: Pantoprazole Sodium 20 MG Tablet PO (11:11)
[2019-06-13] MEDS: Lisinopril 10 MG Tablet PO (11:11)
[2019-06-13] MEDS: Ipratropium/Albuterol Sulfate 3 ML AMPUL.NEB INHALATION ×2 (11:48→19:51)
[2019-06-13] MEDS: guaiFENesin/Codeine 5 ML UDC PO ×2 (11:59→19:46)
[2019-06-13] MEDS: Albuterol 2.5 MG/3 ML VIAL.NEB. INHALATION (15:24)
--- NOTE | 2019-06-13 15:52 | NURSING ---
per resp therapy pt sat 88% on RA, crackles to bilat bases. oxygen applied at 1 liter, Axel Payne NP updated, new order to make duonebs scheduled. Pickle and I.S. given. pt able to demonstrate correct use of both.
[2019-06-13] MEDS: LORazepam 0.5 MG Tablet PO (21:53)
[2019-06-14] VITALS (10 sets, daily range): BP systolic 121–157; BP diastolic 63–76; PULSE 65–92; RESP 16–20; TEMP 36.9; O2SAT 90–92
[2019-06-14] MEDS: hydrALAZINE 50 MG Tablet 100 MG PO ×5 (00:06→23:42)
[2019-06-14] MEDS: Aspirin E.C. 81 MG Tablet PO (05:40)
[2019-06-14] MEDS: NIFEdipine 90 MG Tablet PO ×2 (05:40→17:20)
[2019-06-14] MEDS: Methylcellulose 2 GM Bottle PO ×2 (05:40→17:20)
[2019-06-14] MEDS: predniSONE 20 MG Tablet PO ×2 (05:40→17:20)
[2019-06-14] MEDS: Enoxaparin 30 MG/0.3 ML Syringe SC (05:40)
[2019-06-14] MEDS: Senna Tablet 1 TABLET PO ×2 (05:41→17:20)
[2019-06-14] MEDS: Labetalol 200 MG Tablet 300 MG PO ×3 (05:41→21:04)
[2019-06-14] MEDS: cloNIDine HCl 0.2 MG Tablet 0.3 MG PO ×3 (05:41→21:03)
[2019-06-14] MEDS: Cefdinir 300 MG Capsule PO ×2 (05:41→17:20)
[2019-06-14] MEDS: Alendronate Sodium 70 MG Tablet PO (05:41)
[2019-06-14] MEDS: Nystatin Powder 15gm Bottle 1 APPLIC TOPICAL ×2 (05:47→21:06)
[2019-06-14] MEDS: Menthol/Lanolin/Calamine/Znox 113 GM Tube 1 APPLIC TOPICAL ×2 (05:47→21:05)
[2019-06-14 05:58] LABS: Hematocrit 34.7 % (37-47); Hemoglobin 11.3 g/dL (12.0-15.0); Mean Corp Hgb Conc 32.6 g/dL (32-36); Mean Corpuscular Hgb 31.9 pg (27.0-32.0); Mean Platelet Vol. 8.8 fl (6.2-12.0); POSITIVE COUNT YES; POSITIVE MORPHOLOGY YES; Platelet Count 298 K/mm3 (150-450); RBC Distribution Width CV 14.7 % (11.6-14.6); RBC Distribution Width SD 53.7 fl (35.1-43.9); Red Blood Count 3.54 M/mm3 (4.2-5.4); White Blood Count 17.1 K/mm3 (4.4-11.0)
[2019-06-14 06:24] LABS: Differential Indicated MANUAL DIFF
[2019-06-14 06:41] LABS: Basophil 1 % (0-1); Lymphocyte 13 % (19-41); Metamyelocyte 4 % (0-1); Monocyte 3 % (0-10); Myelocyte 3 (0-0); Neutrophil-Band 4 % (0-5); Neutrophil-Segmented 72 % (47-70); Total Cells Counted 100 (MANUAL DIFF)
[2019-06-14 06:42] LABS: Platelet Estimate ADEQUATE (ADEQ); Red Cell Morphology NORM C+C NORMAL (NORM C&C)
[2019-06-14 06:44] LABS: Absolute Lymphocyte Count 2.22 X10^3/uL (0.83-4.51); Lymphocyte # 2.22 X10^3/ul (4.0)
[2019-06-14 06:45] LABS: Neutrophil # 13.02 X10^3/uL (2.7-7.7)
[2019-06-14] MEDS: Ipratropium/Albuterol Sulfate 3 ML AMPUL.NEB INHALATION ×3 (07:35→19:15)
--- NOTE | 2019-06-14 07:35 | CPS ---
Patient working on PEP therapy on own.
[2019-06-14] MEDS: Multivitamins,Ther W-Minerals Tablet 1 TABLET PO (07:47)
[2019-06-14] MEDS: guaiFENesin/Codeine 5 ML UDC PO ×2 (09:57→17:21)
[2019-06-14] MEDS: Pantoprazole Sodium 20 MG Tablet PO (11:39)
[2019-06-14] MEDS: Lisinopril 10 MG Tablet PO (11:39)
--- NOTE | 2019-06-14 20:37 | NURSING ---
Axel Payne NP called into unit. NO to increase Lovenox to 40 daily.
--- NOTE | 2019-06-14 22:46 | PCA ---
patient did not want to get washed up tonight stating she is getting a shower in the morning with therapy. She did brush teeth
[2019-06-14] MEDS: LORazepam 0.5 MG Tablet PO (23:42)
[2019-06-15] VITALS (8 sets, daily range): BP systolic 112–142; BP diastolic 52–74; PULSE 67–86; RESP 18–20; TEMP 36.5; O2SAT 94
[2019-06-15] MEDS: Methylcellulose 2 GM Bottle PO ×2 (06:14→17:34)
[2019-06-15] MEDS: Labetalol 200 MG Tablet 300 MG PO ×3 (06:16→21:26)
[2019-06-15] MEDS: cloNIDine HCl 0.2 MG Tablet 0.3 MG PO ×3 (06:17→21:25)
[2019-06-15] MEDS: hydrALAZINE 50 MG Tablet 100 MG PO ×3 (06:17→17:35)
[2019-06-15] MEDS: predniSONE 20 MG Tablet PO ×2 (06:17→17:35)
[2019-06-15] MEDS: NIFEdipine 90 MG Tablet PO ×2 (06:17→17:36)
[2019-06-15] MEDS: Aspirin E.C. 81 MG Tablet PO (06:17)
[2019-06-15] MEDS: Senna Tablet 1 TABLET PO ×2 (06:17→17:37)
[2019-06-15] MEDS: Cefdinir 300 MG Capsule PO ×2 (06:17→17:34)
[2019-06-15] MEDS: Menthol/Lanolin/Calamine/Znox 113 GM Tube 1 APPLIC TOPICAL ×2 (06:20→21:31)
[2019-06-15] MEDS: Enoxaparin 40 MG/0.4 ML Syringe SC (06:20)
[2019-06-15] MEDS: Nystatin Powder 15gm Bottle 1 APPLIC TOPICAL ×2 (06:21→21:30)
[2019-06-15] MEDS: Multivitamins,Ther W-Minerals Tablet 1 TABLET PO (08:45)
[2019-06-15] MEDS: Pantoprazole Sodium 20 MG Tablet PO (11:17)
[2019-06-15] MEDS: Lisinopril 10 MG Tablet PO (11:17)
[2019-06-15 12:30] LABS: Pathologist Review Reviewed
[2019-06-15 12:32] LABS: Pathologist Review Reviewed
[2019-06-15] MEDS: guaiFENesin/Codeine 5 ML UDC PO (13:41)
--- NOTE | 2019-06-15 13:43 | NURSING ---
CALLED RT FOR BREATHING TREATMENT
[2019-06-15] MEDS: Ipratropium/Albuterol Sulfate 3 ML AMPUL.NEB INHALATION ×2 (13:51→18:49)
[2019-06-15] MEDS: LORazepam 0.5 MG Tablet PO (21:24)
[2019-06-16] VITALS (10 sets, daily range): BP systolic 128–165; BP diastolic 56–71; PULSE 66–79; RESP 16–24; TEMP 37.1; O2SAT 90–94
[2019-06-16] MEDS: hydrALAZINE 50 MG Tablet 100 MG PO ×5 (00:19→22:49)
[2019-06-16] MEDS: Senna Tablet 1 TABLET PO (06:00)
[2019-06-16] MEDS: NIFEdipine 90 MG Tablet PO ×2 (06:00→16:55)
[2019-06-16] MEDS: Enoxaparin 40 MG/0.4 ML Syringe SC (06:00)
[2019-06-16] MEDS: Cefdinir 300 MG Capsule PO ×2 (06:00→16:54)
[2019-06-16] MEDS: predniSONE 20 MG Tablet PO ×2 (06:00→16:55)
[2019-06-16] MEDS: Aspirin E.C. 81 MG Tablet PO (06:01)
[2019-06-16] MEDS: Labetalol 200 MG Tablet 300 MG PO ×3 (06:01→22:47)
[2019-06-16] MEDS: cloNIDine HCl 0.2 MG Tablet 0.3 MG PO ×3 (06:01→22:48)
[2019-06-16] MEDS: Nystatin Powder 15gm Bottle 1 APPLIC TOPICAL ×2 (06:02→22:49)
[2019-06-16] MEDS: Menthol/Lanolin/Calamine/Znox 113 GM Tube 1 APPLIC TOPICAL ×2 (06:03→22:49)
[2019-06-16] MEDS: Ipratropium/Albuterol Sulfate 3 ML AMPUL.NEB INHALATION ×3 (06:50→20:25)
--- NOTE | 2019-06-16 06:50 | CPS ---
Patient working on PEP therapy on own.
[2019-06-16] MEDS: Multivitamins,Ther W-Minerals Tablet 1 TABLET PO (08:02)
[2019-06-16] MEDS: Methylcellulose 2 GM Bottle PO (11:23)
[2019-06-16] MEDS: Pantoprazole Sodium 20 MG Tablet PO (11:24)
[2019-06-16] MEDS: Lisinopril 10 MG Tablet PO (11:25)
--- NOTE | 2019-06-16 13:30 | CPS ---
Patient working on PEP therapy on own.
--- NOTE | 2019-06-16 14:26 | PHA.CONS_ITS ---
<Kelli Banks - Last Filed: 06/16/19 14:26> Progress Note - Pharmacy Subjective: TCU Admission Objective: Allergies bisoprolol Allergy (Verified 06/08/19 11:30) Unknown levofloxacin [From Levaquin] Allergy (Verified 06/08/19 11:30) Unknown meloxicam Allergy (Verified 06/08/19 11:30) Unknown Sulfa (Sulfonamide Antibiotics) Allergy (Verified 06/08/19 11:30) Unknown CODEINE COUGH SYRUP Adverse Reaction (Uncoded 06/08/19 11:30) Other BP ELEVATION. PT STATES ABLE TO TAKE PAIN MEDS WITH CODEINE WITHOUT TROUBLES Current Medications Generic Name Dose Route Start Last Admin Trade Name Freq PRN Reason Stop Dose Admin Acetaminophen 650 mg 06/12/19 15:27 Tylenol PO Q6H PRN PRN Pain Score 1-3/Temp > 100.7 F Albuterol Sulfate 2.5 mg 06/12/19 22:14 06/13/19 15:24 Ventolin Aerosols INHALATION 2.5 mg Q2H PRN PRN Administration SHORTNESS OF BREATH Albuterol/Ipratropium 3 ml 06/13/19 19:00 06/16/19 13:30 Duoneb INHALATION 3 ml Q6H.RT SYL Administration Alendronate Sodium 70 mg 06/14/19 06:00 06/14/19 05:41 Fosamax PO 70 mg Hernandes@0600 SYL Administration Aspirin 81 mg 06/13/19 06:00 06/16/19 06:01 Ecotrin PO 81 mg DAILY SYL Administration Benzonatate 100 mg 06/12/19 15:27 Tessalon Perle PO TID PRN PRN COUGH Bisacodyl 10 mg 06/12/19 22:02 Dulcolax PO DAILY PRN Constipation Calamine/Phenol 1 applic 06/13/19 06:00 06/16/19 06:03 Calmoseptine Ointment TOPICAL 1 applicatio 0600,2200 SYL Administration Protocol Cefdinir 300 mg 06/12/19 18:00 06/16/19 06:00 Omnicef [Equiv] PO 06/19/19 06:01 300 mg Q12H SYL Administration Clonidine 0.3 mg 06/12/19 22:00 06/16/19 13:51 Catapres PO 0.3 mg 0600,1400,2200 SYL Administration Enoxaparin Sodium 40 mg 06/15/19 06:00 06/16/19 06:00 Lovenox SC 40 mg DAILY SYL Administration Guaifenesin/Codeine Phosphate 5 ml 06/12/19 15:27 06/15/19 13:41 Robitussin Ac PO 5 ml Q6H PRN PRN Administration COUGH Hydralazine HCl 100 mg 06/12/19 18:00 06/16/19 11:23 Apresoline PO 100 mg Q6 SYL Administration Labetalol HCl 300 mg 06/12/19 22:00 06/16/19 13:52 Trandate PO 300 mg 0600,1400,2200 SYL Administration Lisinopril 10 mg 06/13/19 12:00 06/16/19 11:25 Zestril PO 10 mg DAILY@1200 SYL Administration Lorazepam 0.5 mg 06/12/19 15:27 06/15/19 21:24 Ativan PO 0.5 mg QHS PRN Administration ANXIETY Methylcellulose 2 gm 06/12/19 18:00 06/16/19 11:23 Citrucel PO 2 gm BID SYL Administration Multi-Ingredient Cream 1 applic 06/13/19 22:00 06/15/19 21:30 Eucerin TOPICAL 1 applicatio QHS [facility] Administration Protocol Multivitamins/Minerals 1 tablet 06/13/19 08:00 06/16/19 08:02 Multivitamin With Minerals PO 1 tablet DAILY@0800 SYL Administration Nifedipine 90 mg 06/12/19 18:00 06/16/19 06:00 Procardia Xl PO 90 mg BID SYL Administration Nutritional Formula (Lactose Free) 120 ml 06/16/19 06:00 06/16/19 06:00 Ensure Enlive PO 120 ml DAILY SYL Administration Nystatin 1 applic 06/13/19 06:00 06/16/19 06:02 Mycostatin Powder TOPICAL 1 applicatio 599,0 [facility] Administration Protocol Pantoprazole Sodium 20 mg 06/13/19 12:00 06/16/19 11:24 Protonix PO 20 mg 1200 SYL Administration Prednisone 20 mg 06/12/19 18:00 06/16/19 06:00 PO 06/17/19 06:01 20 mg BID SYL Administration Senna 1 tablet 06/13/19 06:00 06/16/19 13:49 Senokot PO Not Given BID SYL Tuberculin PPD 5 tu 06/20/19 10:00 Tubersol, Aplisol, Ppd ID 06/20/19 10:01 X1 ONE Problem List (Last Reviewed 06/08/19 @ 16:34 by Newton Phillips DO) Debility (Acute) Vital Signs Temp Pulse Resp BP Pulse Ox 97.7 F L 79 18 145/65 H 90 06/15/19 15:50 06/16/19 13:53 06/16/19 13:30 06/16/19 13:53 06/16/19 13:30 Oxygen Flow Rate (L/min) 1 Oxygen Delivery Method Room Air Weight: 69.7 kg Body Mass Index (BMI) 25.5 Sodium 140 mmol/L (136-145) 06/13/19 06:56 Potassium 3.9 mmol/L (3.5-5.1) 06/13/19 06:56 Chloride 108 mmol/L (98-107) H 06/13/19 06:56 Carbon Dioxide 22.0 mmol/L (21.0-32.0) 06/13/19 06:56 Anion Gap 10 (5-15) 06/13/19 06:56 BUN 34 mg/dL (7-18) H 06/13/19 06:56 Creatinine 1.27 mg/dL (0.55-1.02) H 06/13/19 06:56 Est GFR (MDRD) Af Amer 52 mL/min (>60) L 06/13/19 06:56 Est GFR (MDRD) Non-Af 43 mL/min (>60) L 06/13/19 06:56 BUN/Creatinine Ratio 26.8 RATIO (10-20) H 06/13/19 06:56 Glucose 147 mg/dL (74-106) H 06/13/19 06:56 Assessment/Plan: *1. Pain: acetaminophen 650mg PO Q6H PRN pain (1-3/10) or Temp >100.7F. Please consider increasing pain scale to include 4-10. Thanks. 2. Sepsis secondary to pneumonia: cefdinir 300mg PO Q12H thru 06/19/19. Please continue to monitor for S/S of infection and renal function. *3. COPD with acute exacerbation: prednisone 20mg PO BID thru 06/17/19, ipratropium/albuterol nebulized solution 3mL inhalation Q6H.RT, albuterol nebulized solution 2.5mg inhalation Q2H PRN SOB/wheezing, benzonatate 100mg PO TID PRN cough, and guaifenesin/codeine 5mL PO Q6H PRN cough. Patient is refusing Duoneb doses during the night so please consider changing to Q6HWA.RT. Please add instructions on if benzonatate or guaifenesin/codeine should be given first or second line for cough. Thanks. Please continue to monitor for wheezing and increased blood glucose. 4. DVT prophylaxis: enoxaparin 30mg SC daily. Please continue to monitor for S/S of bleeding, platelets and renal function. 5. Hypertension: hydralazine 100mg PO Q6H, labetalol 300mg PO TID, lisinopril 10mg PO daily, clonidine 0.3mg PO TID, nifedipine 90mg PO BID. Please continue to monitor BP, HR and renal function. 6. Peripheral vascular disease: aspirin 81mg PO DAILYCM. Please continue to mo nitor for S/S of bleeding. 7. Osteoporosis: alendronate 70mg PO on Saturday. Please continue to monitor for jaw pain and GI disturbance. 8. GERD: pantoprazole 20mg PO daily. Please continue to monitor for S/S of GERD. 9. Overall nutrition: multivitamin 1T PO DAILYCM. Please continue to monitor. Psychotropic Medications: *1. Anxiety: lorazepam 0.5mg PO QHS PRN anxiety. Patient has received 4/4 possible doses. Please consider scheduling QHS if clinically appropriate. Please consider GDR by 01/01 if clinically appropriate. *Unnecessary Medications: methylcellulose 2gm PO BID. I did not see a documented indication for this medication. Please consider D/C if clinically appropriate. Bowel Regimen: senna 1T PO BID and bisacodyl 10mg PO daily PRN constipation. Please continue to monitor for constipation and PRN usage. Date of Note:: 06/16/19 - Provider Comments Provider responsibility: Provider responsible to enter orders to implement recommendations <Isrrael Carty Chi - Last Filed: 06/16/19 17:26> Progress Note - Pharmacy Subjective: [] Objective: Allergies bisoprolol Allergy (Verified 06/08/19 11:30) Unknown levofloxacin [From Levaquin] Allergy (Verified 06/08/19 11:30) Unknown meloxicam Allergy (Verified 06/08/19 11:30) Unknown Sulfa (Sulfonamide Antibiotics) Allergy (Verified 06/08/19 11:30) Unknown CODEINE COUGH SYRUP Adverse Reaction (Uncoded 06/08/19 11:30) Other BP ELEVATION. PT STATES ABLE TO TAKE PAIN MEDS WITH CODEINE WITHOUT TROUBLES Current Medications Generic Name Dose Route Start Last Admin Trade Name Freq PRN Reason Stop Dose Admin Acetaminophen 650 mg 06/12/19 15:27 Tylenol PO Q6H PRN PRN Pain Score 1-3/Temp > 100.7 F Albuterol Sulfate 2.5 mg 06/12/19 22:14 06/13/19 15:24 Ventolin Aerosols INHALATION 2.5 mg Q2H PRN PRN Administration SHORTNESS OF BREATH Albuterol/Ipratropium 3 ml 06/13/19 19:00 06/16/19 13:30 Duoneb INHALATION 3 ml Q6H.RT SYL Administration Alendronate Sodium 70 mg 06/14/19 06:00 06/14/19 05:41 Fosamax PO 70 mg Hernandes@0600 SYL Administration Aspirin 81 mg 06/13/19 06:00 06/16/19 06:01 Ecotrin PO 81 mg DAILY SYL Administration Benzonatate 100 mg 06/12/19 15:27 Tessalon Perle PO TID PRN PRN COUGH Bisacodyl 10 mg 06/12/19 22:02 Dulcolax PO DAILY PRN Constipation Calamine/Phenol 1 applic 06/13/19 06:00 06/16/19 06:03 Calmoseptine Ointment TOPICAL 1 applicatio 0600,2200 SYL Administration Protocol Cefdinir 300 mg 06/12/19 18:00 06/16/19 16:54 Omnicef [Equiv] PO 06/19/19 06:01 300 mg Q12H SYL Administration Clonidine 0.3 mg 06/12/19 22:00 06/16/19 13:51 Catapres PO 0.3 mg 0600,1400,2200 SYL Administration Enoxaparin Sodium 40 mg 06/15/19 06:00 06/16/19 06:00 Lovenox SC 40 mg DAILY SYL Administration Guaifenesin/Codeine Phosphate 5 ml 06/12/19 15:27 06/16/19 16:58 Robitussin Ac PO 5 ml Q6H PRN PRN Administration COUGH Hydralazine HCl 100 mg 06/12/19 18:00 06/16/19 16:55 Apresoline PO 100 mg Q6 SYL Administration Labetalol HCl 300 mg 06/12/19 22:00 06/16/19 13:52 Trandate PO 300 mg 0600,1400,2200 SYL Administration Lisinopril 10 mg 06/13/19 12:00 06/16/19 11:25 Zestril PO 10 mg DAILY@1200 SYL Administration Lorazepam 0.5 mg 06/12/19 15:27 06/15/19 21:24 Ativan PO 0.5 mg QHS PRN Administration ANXIETY Methylcellulose 2 gm 06/12/19 18:00 06/16/19 16:53 Citrucel PO Not Given BID [facility] Multi-Ingredient Cream 1 applic 06/13/19 22:00 06/15/19 21:30 Eucerin TOPICAL 1 applicatio QHS [facility] Administration Protocol Multivitamins/Minerals 1 tablet 06/13/19 08:00 06/16/19 08:02 Multivitamin With Minerals PO 1 tablet DAILY@0800 SYL Administration Nifedipine 90 mg 06/12/19 18:00 06/16/19 16:55 Procardia Xl PO 90 mg BID SYL Administration Nutritional Formula (Lactose Free) 120 ml 06/16/19 06:00 06/16/19 06:00 Ensure Enlive PO 120 ml DAILY [facility] Administration Nystatin 1 applic 06/13/19 06:00 06/16/19 06:02 Mycostatin Powder TOPICAL 1 applicatio 0600,2200 [facility] Administration Protocol Pantoprazole Sodium 20 mg 06/13/19 12:00 06/16/19 11:24 Protonix PO 20 mg 1200 SYL Administration Prednisone 20 mg 06/12/19 18:00 06/16/19 16:55 PO 06/17/19 06:01 20 mg BID SYL Administration Senna 1 tablet 06/13/19 06:00 06/16/19 13:49 Senokot PO Not Given BID [facility] Tuberculin PPD 5 tu 06/20/19 10:00 Tubersol, Aplisol, Ppd ID 06/20/19 10:01 X1 ONE Problem List (Last Reviewed 06/08/19 @ 16:34 by Newton Phillips DO) Debility (Acute) Vital Signs Temp Pulse Resp BP Pulse Ox 98.8 F 75 24 H 165/63 H 91 06/16/19 16:00 06/16/19 16:55 06/16/19 16:00 06/16/19 16:00 06/16/19 16:00 Oxygen Flow Rate (L/min) 1 Oxygen Delivery Method Room Air Weight: 69.7 kg Body Mass Index (BMI) 25.5 Sodium 140 mmol/L (136-145) 06/13/19 06:56 Potassium 3.9 mmol/L (3.5-5.1) 06/13/19 06:56 Chloride 108 mmol/L (98-107) H 06/13/19 06:56 Carbon Dioxide 22.0 mmol/L (21.0-32.0) 06/13/19 06:56 Anion Gap 10 (5-15) 06/13/19 06:56 BUN 34 mg/dL (7-18) H 06/13/19 06:56 Creatinine 1.27 mg/dL (0.55-1.02) H 06/13/19 06:56 Est GFR (MDRD) Af Amer 52 mL/min (>60) L 06/13/19 06:56 Est GFR (MDRD) Non-Af 43 mL/min (>60) L 06/13/19 06:56 BUN/Creatinine Ratio 26.8 RATIO (10-20) H 06/13/19 06:56 Glucose 147 mg/dL (74-106) H 06/13/19 06:56 Assessment/Plan: Psychotropic Medications: Unnecessary Medications: Bowel Regimen: - Provider Comments Provider responsibility: Provider responsible to enter orders to implement recommendations Provider Comments to Recommendations by Pharmacy: Agree
--- NOTE | 2019-06-16 16:20 | NURSING ---
PER THERAPY, PT ALLOWED UP AB [facility]OTT IN ROOM. IN HALLS AND STAFF IS ALLOWED TO WALK PT. REPORTED TO HOMER AREVALO
[2019-06-16] MEDS: guaiFENesin/Codeine 5 ML UDC PO (16:58)
[2019-06-16] MEDS: LORazepam 0.5 MG Tablet PO (23:23)
[2019-06-17] VITALS (11 sets, daily range): BP systolic 112–156; BP diastolic 54–76; PULSE 60–77; RESP 16; TEMP 37.1; O2SAT 90–94
[2019-06-17] MEDS: hydrALAZINE 50 MG Tablet 100 MG PO ×4 (06:02→23:08)
[2019-06-17] MEDS: predniSONE 20 MG Tablet PO (06:03)
[2019-06-17] MEDS: NIFEdipine 90 MG Tablet PO ×2 (06:03→17:27)
[2019-06-17] MEDS: cloNIDine HCl 0.2 MG Tablet 0.3 MG PO ×3 (06:03→21:07)
[2019-06-17] MEDS: Aspirin E.C. 81 MG Tablet PO (06:03)
[2019-06-17] MEDS: Cefdinir 300 MG Capsule PO ×2 (06:03→17:26)
[2019-06-17] MEDS: Menthol/Lanolin/Calamine/Znox 113 GM Tube 1 APPLIC TOPICAL ×2 (06:04→21:11)
[2019-06-17] MEDS: Enoxaparin 40 MG/0.4 ML Syringe SC (06:05)
[2019-06-17] MEDS: Nystatin Powder 15gm Bottle 1 APPLIC TOPICAL ×2 (06:05→21:09)
[2019-06-17] MEDS: Labetalol 200 MG Tablet 300 MG PO ×3 (06:06→21:07)
[2019-06-17] MEDS: Multivitamins,Ther W-Minerals Tablet 1 TABLET PO (07:58)
--- NOTE | 2019-06-17 11:18 | CASEMGMT ---
Addendum entered by Cinda Morley 06/17/19 16:53: Pt discharging home on aerosols. Ordered nebulizer through [employer]. Will deliver to home. Original Note: Social Work IDT met with patient and for care plan meeting. Discussed patient's progress in therapy. Pt is adlib in room, independent with all ADLs, modified independence for walking 300 ft FWW, SBA with 5 steps. Pt lives at home with and the plan is for pt to continue to travel. Pt praises staff and great stay in TCU. Explained Medicare coverage. Pt is ready to DC home - IDT agreeable to DC 06/18 and return to [facility] for outpatient PT. No DME needs. Plan: DC home 06/18 with [facility] outpatient PT NIKHIL PorterW
[2019-06-17] MEDS: Lisinopril 10 MG Tablet PO (11:26)
[2019-06-17] MEDS: Pantoprazole Sodium 20 MG Tablet PO (11:27)
[2019-06-17] MEDS: Ipratropium/Albuterol Sulfate 3 ML AMPUL.NEB INHALATION ×2 (12:46→19:14)
--- NOTE | 2019-06-17 20:23 | DCINST_ITS ---
- Discharge Diagnoses Current Active Problems: Current Active and Chronic Problems (Last Reviewed 06/08/19 @ 16:34 by Newton Phillips DO) Debility (Acute) You will use the following diet at home:: No restrictions, Regular Your food should be the consistency of: Regular Your liquids should be the consistency of: Regular/Thin Discharge Activity: Return to Normal Activity, May Shower, Use Walker Weight Bearing Status: Weight bearing as tolerated Call your doctor if you observe: Fever of 101 or Higher, Inability to urinate, Inability to have a bowel movement, Shortness of breath, Chest pain, U ncontrolled pain Allergies/Adverse Reactions: Allergies bisoprolol Allergy (Verified 06/08/19 11:30) Unknown levofloxacin [From Levaquin] Allergy (Verified 06/08/19 11:30) Unknown meloxicam Allergy (Verified 06/08/19 11:30) Unknown Sulfa (Sulfonamide Antibiotics) Allergy (Verified 06/08/19 11:30) Unknown CODEINE COUGH SYRUP Adverse Reaction (Uncoded 06/08/19 11:30) Other BP ELEVATION. PT STATES ABLE TO TAKE PAIN MEDS WITH CODEINE WITHOUT TROUBLES Medications to take at Discharge Alendronate Sodium [Fosamax] 70 mg PO PATINO 02/28/15 Multivitamins,Ther W-Minerals [Multivitamin With Minerals] 1 tab PO DAILY 02/28/15 biotin 10,000 mcg capsule 10,000 mcg PO TID cap 11/06/17 aspirin 81 mg tablet,delayed release 81 mg PO DAILY 08/13/18 clonidine HCl 0.3 mg tablet 0.3 mg PO TID tab 08/13/18 docusate sodium 100 mg tablet 100 mg PO DAILY 08/13/18 glucosamine 500 [id number] comp 400 mg-D3 667 unit-C-Mn cap 1 cap PO BID cap 08/13/18 hydralazine 100 mg tablet 100 mg PO Q6H tab 08/13/18 labetalol 200 mg tablet 300 mg PO TID tab 08/13/18 nifedipine ER 90 mg tablet,extended release 90 mg PO BID tab 08/13/18 omega-3 fatty acids 1,000 mg capsule 2,000 mg PO TID 08/13/18 lisinopril 10 mg tablet 10 mg PO DAILY@1200 12/01/18 vitamin B complex tablet 1 tab PO DAILY 12/01/18 Cyanocobalamin (Vitamin B-12) [Vitamin B-12] 5,000 mcg PO DAILY 06/08/19 Methylcellulose (with Sugar) [Citrucel Powder] 850 gm PO BID 06/08/19 Omeprazole 20 mg PO DAILY@1200 06/08/19 Acetaminophen [Tylenol Tablet] 650 mg PO Q6H PRN PRN tab 06/12/19 Docusate Sodium [Colace] 100 mg PO DAILY 06/12/19 Lorazepam [Ativan] 0.5 mg PO QHS PRN 5 Days #5 tab 06/12/19 Cefdinir [Omnicef [equiv]] 300 mg PO Q12H #3 cap 06/17/19 Guaifenesin/Codeine [Robitussin AC] 5 ml PO Q6H PRN PRN #250 ml 06/17/19 Menthol/Lanolin/Calamine/Znox [Calmoseptine Ointment] 1 applic TOPICAL 0600,2200 tube 06/17/19 Mineral Oil/Petrolatum,White [Eucerin] 1 applic TOPICAL QHS jar 06/17/19 Nystatin Powder [Mycostatin Powder] 1 applic TOPICAL 0600,2200 bottle 06/17/19 The following prescriptions were given: Cefdinir [Omnicef [equiv]] 300 mg PO Q12H #3 cap Transmission Status: Pending to [facility]/pharmacy #[id number] Guaifenesin/Codeine [Robitussin AC] 5 ml PO Q6H PRN PRN #250 ml PRN Reason: Cough Transmission Status: Received by [facility]/pharmacy #[id number] Primary Care Physician: Jason Chinchilla MD [Primary Care Provider] - Please follow up with your Primary Care Physician in: 1 week. Test Results: Test results from this visit will be discussed in further detail at your follow- up appointment, if applicable. Proposed Discharge Date: 06/18/19
[2019-06-17 20:24] LABS: Hematocrit 34.2 % (37-47); Hemoglobin 11.1 g/dL (12.0-15.0); Mean Corp Hgb Conc 32.5 g/dL (32-36); Mean Corpuscular Hgb 31.8 pg (27.0-32.0); Mean Platelet Vol. 8.7 fl (6.2-12.0); POSITIVE COUNT YES; POSITIVE MORPHOLOGY YES; Platelet Count 317 K/mm3 (150-450); RBC Distribution Width SD 53.8 fl (35.1-43.9); Red Blood Count 3.49 M/mm3 (4.2-5.4); White Blood Count 14.9 K/mm3 (4.4-11.0)
--- NOTE | 2019-06-17 20:24 | PCM.DC.SUM ---
Discharge Date and Diagnosis - Problem List Patient Problems: Active and Suspected Problems (Last Reviewed 06/08/19 @ 16:34 by Newton Phillips DO) Debility (Acute) Date of Admission: 06/12/19 Date of Discharge: 06/18/19 - Primary Discharge Diagnosis Active and Suspected Problems (Last Reviewed 06/08/19 @ 16:34 by Newton Phillips DO) Debility (Acute) - Secondary Discharge Diagnosis Chronic Problems (Last Reviewed 06/08/19 @ 16:34 by Newton Phillips DO) COPD exacerbation (Chronic) Abdominal mass (Chronic) check cbc cmp amylase lipase tsh free t4 ca [address] abdomen pelvis Abdominal distension (Chronic) check labs and imaging Dissection of thoracic aorta (Chronic ~09/04/18) Status post TEVAR on 09/04/2018 at [facility] Stage 1 mild COPD by GOLD classification (Chronic) History of stent insertion of renal artery (Chronic ~07/30/18) Bilateral 07/30/18 @ [facility] Incontinence (Chronic) Bradycardia (Chronic) Renal artery stenosis (Chronic) Status post bilateral renal artery stenting on 07/30/2018 at [facility]; Peripheral vascular disease (Chronic) Hyperlipemia, mixed (Chronic) Nonrheumatic mitral valve insufficiency (Chronic) Nonrheumatic aortic valve stenosis (Chronic) Essential (primary) hypertension (Chronic) GERD (gastroesophageal reflux disease) (Chronic) DARRIUS (obstructive sleep apnea) (Chronic) BiPAP 14/10 centimeters of water 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) Status post R CHOP ?6 and maintenance rituximab ?5 years, now in remission Hospital Course and Treatment Imaging Results: 06/12/19 15:35 Diet: Regular Diet Food consistency:: Regular Liquid Consistency:: Regular/Thin Labs (Last 48 Hours) 06/17/19 06/17/19 18:26 20:10 WBC Cancelled Pending Corrected WBC Cancelled RBC Cancelled Pending Hgb Cancelled Pending Hct Cancelled Pending MCV Cancelled Pending MCH Cancelled Pending MCHC Cancelled Pending RDW Std Deviation Cancelled Pending RDW Coeff of Tom Cancelled Pending Plt Count Cancelled Pending MPV Cancelled Immature Gran % (Auto) Cancelled Neut % (Auto) Cancelled Pending Lymph % (Auto) Cancelled Graves % (Auto) Cancelled Eos % (Auto) Cancelled Baso % (Auto) Cancelled Absolute Neuts (auto) Cancelled Pending Absolute Lymphs (auto) Cancelled Total Counted Cancelled Neutrophils % (Manual) Cancelled Band Neutrophils % Cancelled Lymphocytes % (Manual) Cancelled Monocytes % (Manual) Cancelled Eosinophils % (Manual) Cancelled Basophils % (Manual) Cancelled Metamyelocytes % Cancelled Myelocytes % Cancelled Promyelocytes % Cancelled Blast Cells % Cancelled Plasma Cell % (Manual) Cancelled Other Cells % Cancelled Nucleated RBC % Cancelled Nucleated RBCs/100 WBC Cancelled Differential Comment Cancelled Diff Path Review Cancelled Hypersegmented Neuts Cancelled Atypical Lymphocytes Cancelled Reactive Lymphocytes Cancelled Smudge Cells Cancelled Toxic Granulation Cancelled Toxic Vacuolation Cancelled Dohle Bodies Cancelled Michael Rods Cancelled Platelet Estimate Cancelled Plt Morphology Comment Cancelled RBC Morphology Cancelled Polychromasia Cancelled Hypochromasia Cancelled Poikilocytosis Cancelled Basophilic Stippling Cancelled Anisocytosis Cancelled Microcytosis Cancelled Macrocytosis Cancelled Spherocytes Cancelled Sickle Cells Cancelled Target Cells Cancelled Tear Drop Cells Cancelled Ovalocytes Cancelled Stomatocytes Cancelled Mcdonald-La Sal Bodies Cancelled Paolo Cells Cancelled Bite Cells Cancelled Crenated Cell Cancelled Acanthocytes (Spur) Cancelled Rouleaux Cancelled Schistocytes Cancelled Operations: None Procedures: None Summary of Care Provided: The patient is a 79 year old Female with below past medical history hospitalized for CAP, sepsis, and COPD exacerbation will be admitted to TCU with debility, here for rehabilitation, strengthening, prior to being discharged home with . Discharge home with , outpatient PT at [facility]. Patient Problems: Active and Suspected Problems (Last Reviewed 06/08/19 @ 16:34 by Newton Phillips DO) Debility (Acute) - Physical Exam Vitals/I&O's: Vital Signs Temp Pulse Resp BP Pulse Ox 98.8 F 70 16 153/70 H 90 06/17/19 15:18 06/17/19 19:15 06/17/19 19:15 06/17/19 17:26 06/17/19 19:15 Oxygen Flow Rate (L/min) 1 Oxygen Delivery Method Room Air Weight: 66.366 kg Body Mass Index (BMI) 25.5 Intake and Output for Last 24 Hours 06/15/19 06/16/19 06/17/19 23:59 23:59 23:59 Intake Total 480 / 480 600 / 600 820 / 820 Balance 480 / 480 600 / 600 820 / 820 Laboratory Results 06/17/19 18:26: WBC Cancelled, Corrected WBC Cancelled, RBC Cancelled, Hgb Cancelled, Hct Cancelled, MCV Cancelled, MCH Cancelled, MCHC Cancelled, RDW Std Deviation Cancelled, RDW Coeff of Tom Cancelled, Plt Count Cancelled, MPV Cancelled, Immature Gran % (Auto) Cancelled, Neut % (Auto) Cancelled, Lymph % (Auto) Cancelled, Graves % (Auto) Cancelled, Eos % (Auto) Cancelled, Baso % (Auto) Cancelled, Absolute Neuts (auto) Cancelled, Absolute Lymphs (auto) Cancelled, Total Counted Cancelled, Neutrophils % (Manual) Cancelled, Band Neutrophils % Cancelled, Lymphocytes % (Manual) Cancelled, Monocytes % (Manual) Cancelled, Eosinophils % (Manual) Cancelled, Basophils % (Manual) Cancelled, Metamyelocytes % Cancelled, Myelocytes % Cancelled, Promyelocytes % Cancelled, Blast Cells % Cancelled, Plasma Cell % (Manual) Cancelled, Other Cells % Cancelled, Nucleated RBC % Cancelled, Nucleated RBCs/100 WBC Cancelled, Differential Comment Cancelled, Diff Path Review Cancelled, Hypersegmented Neuts Cancelled, Atypical Lymphocytes Cancelled, Reactive Lymphocytes Cancelled, Smudge Cells Cancelled, Toxic Granulation Cancelled, Toxic Vacuolation Cancelled, Dohle Bodies Cancelled, Michael Rods Cancelled, Platelet Estimate Cancelled, Plt Morphology Comment Cancelled, RBC Morphology Cancelled, Polychromasia Cancelled, Hypochromasia Cancelled, Poikilocytosis Cancelled, Basophilic Stippling Cancelled, Anisocytosis Cancelled, Microcytosis Cancelled, Macrocytosis Cancelled, Spherocytes Cancelled, Sickle Cells Cancelled, Target Cells Cancelled, Tear Drop Cells Cancelled, Ovalocytes Cancelled, Stomatocytes Cancelled, Mcdonald-La Sal Bodies Cancelled, Paolo Cells Cancelled, Bite Cells Cancelled, Crenated Cell Cancelled, Acanthocytes (Spur) Cancelled, Rouleaux Cancelled, Schistocytes Cancelled 06/17/19 20:10: WBC Pending, RBC Pending, Hgb Pending, Hct Pending, MCV Pending, MCH Pending, MCHC Pending, RDW Std Deviation Pending, RDW Coeff of Tom Pending, Plt Count Pending, Neut % (Auto) Pending, Absolute Neuts (auto) Pending Current Medications Acetaminophen (Tylenol) 650 mg PO Q6H PRN PRN PRN Reason: Pain Score 1-3/Temp > 100.7 F Albuterol Sulfate (Ventolin Aerosols) 2.5 mg INHALATION Q2H PRN PRN PRN Reason: SHORTNESS OF BREATH Last Admin: 06/13/19 15:24 Dose: 2.5 mg Documented by: Albuterol/Ipratropium (Duoneb) 3 ml INHALATION Q6H.RT [facility] Last Admin: 06/17/19 19:14 Dose: 3 ml Documented by: Alendronate Sodium (Fosamax) 70 mg PO Patino@0600 [facility] Last Admin: 06/14/19 05:41 Dose: 70 mg Documented by: Aspirin (Ecotrin) 81 mg PO DAILY [facility] Last Admin: 06/17/19 06:03 Dose: 81 mg Documented by: Benzonatate (Tessalon Perle) 100 mg PO TID PRN PRN PRN Reason: COUGH Bisacodyl (Dulcolax) 10 mg PO DAILY PRN PRN Reason: Constipation Calamine/Phenol (Calmoseptine Ointment) 1 applic TOPICAL 0600,2200 [facility]; Protocol Last Admin: 06/17/19 06:04 Dose: 1 applicatio Documented by: Cefdinir (Omnicef [Equiv]) 300 mg PO Q12H [facility] Stop: 06/19/19 06:01 Last Admin: 06/17/19 17:26 Dose: 300 mg Documented by: Clonidine (Catapres) 0.3 mg PO 0600,1400,2200 [facility] Last Admin: 06/17/19 15:02 Dose: 0.3 mg Documented by: Enoxaparin Sodium (Lovenox) 40 mg SC DAILY [facility] Last Admin: 06/17/19 06:05 Dose: 40 mg Documented by: Guaifenesin/Codeine Phosphate (Robitussin Ac) 5 ml PO Q6H PRN PRN PRN Reason: COUGH Last Admin: 06/16/19 16:58 Dose: 5 ml Documented by: Hydralazine HCl (Apresoline) 100 mg PO Q6 [facility] Last Admin: 06/17/19 17:26 Dose: 100 mg Documented by: Labetalol HCl (Trandate) 300 mg PO 0600,1400,2200 [facility] Last Admin: 06/17/19 15:01 Dose: 300 mg Documented by: Lisinopril (Zestril) 10 mg PO DAILY@1200 [facility] Last Admin: 06/17/19 11:26 Dose: 10 mg Documented by: Lorazepam (Ativan) 0.5 mg PO QHS PRN PRN Reason: ANXIETY Last Admin: 06/16/19 23:23 Dose: 0.5 mg Documented by: Methylcellulose (Citrucel) 2 gm PO BID [facility] Last Admin: 06/17/19 18:24 Dose: Not Given Documented by: Multi-Ingredient Cream (Eucerin) 1 applic TOPICAL QHS [facility]; Protocol Last Admin: 06/16/19 22:48 Dose: 1 applicatio Documented by: Multivitamins/Minerals (Multivitamin With Minerals) 1 tablet PO DAILY@0800 [facility] Last Admin: 06/17/19 07:58 Dose: 1 tablet Documented by: Nifedipine (Procardia Xl) 90 mg PO BID [facility] Last Admin: 06/17/19 17:27 Dose: 90 mg Documented by: Nutritional Formula (Lactose Free) (Ensure Enlive) 120 ml PO DAILY [facility] Last Admin: 06/17/19 06:06 Dose: 120 ml Documented by: Nystatin (Mycostatin Powder) 1 applic TOPICAL 0600,2200 [facility]; Protocol Last Admin: 06/17/19 06:05 Dose: 1 applicatio Documented by: Pantoprazole Sodium (Protonix) 20 mg PO 1200 [facility] Last Admin: 06/17/19 11:27 Dose: 20 mg Documented by: Senna (Senokot) 1 tablet PO BID [facility] Last Admin: 06/17/19 17:27 Dose: Not Given Documented by: Tuberculin PPD (Tubersol, Aplisol, Ppd) 5 tu ID X1 ONE Stop: 06/20/19 10:01 Discharge Diet: No Restrictions Discharge Activity: Return to Normal Activity, May Shower, Use Walker Weight Bearing Status: Weight bearing as tolerated Call your doctor if you observe: Fever of 101 or Higher, Inability to urinate, Inability to have a bowel movement, Shortness of breath, Chest pain, Uncontrolled pain Home Medications: Medications to take at Discharge Alendronate Sodium [Fosamax] 70 mg PO PATINO 02/28/15 Multivitamins,Ther W-Minerals [Multivitamin With Minerals] 1 tab PO DAILY 02/28/15 biotin 10,000 mcg capsule 10,000 mcg PO TID cap 11/06/17 aspirin 81 mg tablet,delayed release 81 mg PO DAILY 08/13/18 clonidine HCl 0.3 mg tablet 0.3 mg PO TID tab 08/13/18 docusate sodium 100 mg tablet 100 mg PO DAILY 08/13/18 glucosamine 500 we-zfvgugnxq-kqleiror comp 400 mg-D3 667 unit-C-Mn cap 1 cap PO BID cap 08/13/18 hydralazine 100 mg tablet 100 mg PO Q6H tab 08/13/18 labetalol 200 mg tablet 300 mg PO TID tab 08/13/18 nifedipine ER 90 mg tablet,extended release 90 mg PO BID tab 08/13/18 omega-3 fatty acids 1,000 mg capsule 2,000 mg PO TID 08/13/18 lisinopril 10 mg tablet 10 mg PO DAILY@1200 12/01/18 vitamin B complex tablet 1 tab PO DAILY 12/01/18 Cyanocobalamin (Vitamin B-12) [Vitamin B-12] 5,000 mcg PO DAILY 06/08/19 Methylcellulose (with Sugar) [Citrucel Powder] 850 gm PO BID 06/08/19 Omeprazole 20 mg PO DAILY@1200 06/08/19 Acetaminophen [Tylenol Tablet] 650 mg PO Q6H PRN PRN tab 06/12/19 Docusate Sodium [Colace] 100 mg PO DAILY 06/12/19 Lorazepam [Ativan] 0.5 mg PO QHS PRN 5 Days #5 tab 06/12/19 Cefdinir [Omnicef [equiv]] 300 mg PO Q12H #3 cap 06/17/19 Guaifenesin/Codeine [Robitussin AC] 5 ml PO Q6H PRN PRN #250 ml 06/17/19 Menthol/Lanolin/Calamine/Znox [Calmoseptine Ointment] 1 applic TOPICAL 0600,2200 tube 06/17/19 Mineral Oil/Petrolatum,White [Eucerin] 1 applic TOPICAL QHS jar 12/04/19 Nystatin Powder [Mycostatin Powder] 1 applic TOPICAL 0600,2200 bottle 06/17/19 Following Prescrptions Were Given to Patient: Cefdinir [Omnicef [equiv]] 300 mg PO Q12H #3 cap Transmission Status: Pending to [id number] Guaifenesin/Codeine [Robitussin AC] 5 ml PO Q6H PRN PRN #250 ml PRN Reason: Cough Transmission Status: Received by [id number] Primary Care Physician: Jason Chinchilla MD [Primary Care Provider] - Please follow up with your Primary Care Physician in: 1 week. Disposition: Home Minutes spent on discharge:: 30 Patient Condition:: Stable Medical Necessity - Tobacco Use Smoking Status: Former smoker Meaningful Use Info Meaningful Use Diagnoses (Choose all that apply): None applicable
[2019-06-17 20:31] LABS: Differential Indicated MANUAL DIFF
[2019-06-17 21:07] LABS: Differential Comment SCANNED
[2019-06-17 21:12] LABS: Eosinophil 1 % (0-5); Lymphocyte 14 % (19-41); Monocyte 6 % (0-10); Neutrophil-Band 6 % (0-5); Neutrophil-Segmented 73 % (47-70); Total Cells Counted 100 (MANUAL DIFF)
[2019-06-17 21:13] LABS: Platelet Estimate ADEQUATE (ADEQ); Red Cell Morphology NORM C+C NORMAL (NORM C&C)
[2019-06-17 21:17] LABS: Absolute Lymphocyte Count 2.09 X10^3/uL (0.83-4.51); Absolute Neutrophil Count 11.8 X10^3/uL (2.0-7.7)
[2019-06-17] MEDS: LORazepam 0.5 MG Tablet PO (21:17)
[2019-06-18] MEDS: cloNIDine HCl 0.2 MG Tablet 0.3 MG PO (06:20)
[2019-06-18] MEDS: Methylcellulose 2 GM Bottle PO (06:20)
[2019-06-18] MEDS: Labetalol 200 MG Tablet 300 MG PO (06:20)
[2019-06-18] MEDS: Cefdinir 300 MG Capsule PO (06:20)
[2019-06-18] MEDS: NIFEdipine 90 MG Tablet PO (06:20)
[2019-06-18] MEDS: Aspirin E.C. 81 MG Tablet PO (06:20)
[2019-06-18] MEDS: Menthol/Lanolin/Calamine/Znox 113 GM Tube 1 APPLIC TOPICAL (06:21)
[2019-06-18 06:22] VITALS: BP 138/64; PULSE 66
[2019-06-18] MEDS: hydrALAZINE 50 MG Tablet 100 MG PO (06:22)
[2019-06-18] MEDS: Nystatin Powder 15gm Bottle 1 APPLIC TOPICAL (06:23)
[2019-06-18 07:20] VITALS: PULSE 59; RESP 18; O2SAT 90
[2019-06-18] MEDS: Ipratropium/Albuterol Sulfate 3 ML AMPUL.NEB INHALATION (07:20)
[2019-06-18] MEDS: Multivitamins,Ther W-Minerals Tablet 1 TABLET PO (07:53)
[2019-06-18 09:37] LABS: Pathologist Review Reviewed
[2019-06-18 10:04] VITALS: BP 101/54; PULSE 66; RESP 16; TEMP 36.7; O2SAT 95
[2019-06-18 10:28] VITALS: PULSE 66; RESP 16; O2SAT 95
--- NOTE | 2019-06-24 08:42 | MDS.RN ---
Information for the mds was obtained from review of the clinical record, interview of resident, staff, and direct observation of resident's care.
== END 2019-06-18 11:14 | disposition home or self-care (01) | DRG 190 ==
LOC: TCU 14:46
PROVIDERS: Nurse Practitioner Family; Admitting Provider Family Medicine Geriatric Medicine; Family Provider Family Medicine; PCP Family Medicine; Referring Provider Family Medicine Geriatric Medicine; Visit Provider Family Medicine Geriatric Medicine
DX: J44.0 Chronic obstructive pulmonary disease with (acute) lower respiratory infection (principal); J18.9 Pneumonia, unspecified organism; C83.30 Diffuse large B-cell lymphoma, unspecified site; J44.1 Chronic obstructive pulmonary disease with (acute) exacerbation; I27.20 Pulmonary hypertension, unspecified; E78.2 Mixed hyperlipidemia; I10 Essential (primary) hypertension; K21.9 Gastro-esophageal reflux disease without esophagitis; G47.33 Obstructive sleep apnea (adult) (pediatric); I73.9 Peripheral vascular disease, unspecified; Z87.891 Personal history of nicotine dependence; F41.9 Anxiety disorder, unspecified; R19.00 Intra-abdominal and pelvic swelling, mass and lump, unspecified site
CPT/HCPCS: 36415; 80048; 85025; 94640; 94667; 94668; 97110; 97116; 97162; 97165; 97530; 97535; 97802; 99251; G0463

== ENCOUNTER → 2019-06-24 12:09 | Outpatient (CLI) | payer MEDICARE, OTHER, SELFPAY ==
[2019-06-12 15:00] VITALS: BMI 25.5
[2019-06-24 12:56] LABS: Anion Gap 8 (5-15); BUN 28 mg/dL (7-18); BUN/Creat Ratio 18.2 RATIO (10-20); Calcium,Total 9.4 mg/dL (8.5-10.1); Chloride 110 mmol/L (98-107); Creatinine, Serum 1.54 mg/dL (0.55-1.02); EST Glomerular Filtration Rate 34 mL/min (>60); Est Glom Filt Rate - Afr Amer 42 mL/min (>60); Glucose 104 mg/dL (74-106); Potassium 3.5 mmol/L (3.5-5.1); Sodium Level 142 mmol/L (136-145)
== END ==
PROVIDERS: Family Provider Family Medicine; PCP Family Medicine; Referring Provider Internal Medicine Cardiovascular Disease; Visit Provider Internal Medicine Cardiovascular Disease
DX: I10 Essential (primary) hypertension (principal)
CPT/HCPCS: 36415; 80048

== ENCOUNTER → 2019-06-25 16:46 | Outpatient (CLI) | payer MEDICARE, OTHER, SELFPAY ==
[2019-06-08 16:46] VITALS: BMI 23.9
[2019-06-12 15:00] VITALS: BMI 25.5
--- NOTE | 2019-06-25 16:47 | CT_ITS ---
STUDY: CT ABDOMEN AND PELVIS WITH CONTRAST REASON FOR EXAM: Female, 79 years old. Abdominal distention. RADIATION DOSAGE (If Supplied By Facility): CTDIvol = ( 19.63 ) mGy, DLP = ( 1032.25 ) mGycm TECHNIQUE: Transaxial images were obtained from the dome of the diaphragm to the symphysis pubis with oral contrast. 100ML ISOVUE 370 AND ORAL was administered. Sagittal and coronal images were reconstructed. Individualized dose optimization techniques were used for this CT. COMPARISON: Comparison is made with prior examination dated July 21, 2014. FINDINGS: Minimal increased markings at the lung bases suggests mild scarring. The patient is status post covered stenting of the distal thoracic aorta and proximal abdominal aorta at the level of the diaphragmatic hiatus. The visualized portions of the heart are within normal limits. Stable 5 cm x 3.3 cm cyst with dense calcification along its medial wall. Sludge or small gallstones seen within the dependent portion of the gallbladder. Normal spleen. Normal pancreas. Normal bilateral adrenal glands. New 1.4 cm cyst in the lateral midportion of the right kidney as well as a 1 cm cyst inferiorly. Normal left kidney. Residual food particles are seen within the stomach. Normal small intestine. Large amount of fecal material is seen throughout the colon. The appendix is visualized and appears normal. There is diffuse atherosclerotic calcification of the abdominal aorta, without a demonstrated aneurysm. Normal inferior vena cava. Normal retroperitoneum. Distended urinary bladder. There is absence of the uterus consistent with a prior hysterectomy. Normal abdominal wall. The patient is status post interpedicular screw and one fixation involving entire lumbar spine with persistent anterior listhesis of L3 on L4. The patient is also status post left hip replacement. CT/Abdomen/Pelvis WITH Contrast IMPRESSION: Small gallstones versus sludge in the dependent portion of the gallbladder lumen. Large amount of fecal material is seen throughout the colon. Prior fusion involving the lumbar spine. Small right renal cysts. Electronically Signed: Selvin Price, at 13:55 EST , Service support ,
== END ==
PROVIDERS: Family Provider Family Medicine; PCP Family Medicine; Referring Provider Obstetrics & Gynecology; Visit Provider Obstetrics & Gynecology
DX: R14.0 Abdominal distension (gaseous) (principal)
CPT/HCPCS: 74177; Q9967; A4216

== ENCOUNTER → 2019-07-31 11:16 | Outpatient (CLI) | payer MEDICARE, OTHER, SELFPAY ==
[2019-06-12 15:00] VITALS: BMI 25.5
[2019-07-31 12:05] LABS: Anion Gap 7 (5-15); BUN 28 mg/dL (7-18); BUN/Creat Ratio 20.4 RATIO (10-20); Calcium,Total 9.3 mg/dL (8.5-10.1); Chloride 107 mmol/L (98-107); Creatinine, Serum 1.37 mg/dL (0.55-1.02); EST Glomerular Filtration Rate 39 mL/min (>60); Est Glom Filt Rate - Afr Amer 48 mL/min (>60); Glucose 101 mg/dL (74-106); Potassium 3.9 mmol/L (3.5-5.1); Sodium Level 139 mmol/L (136-145)
== END ==
PROVIDERS: PCP Family Medicine; Referring Provider Internal Medicine Cardiovascular Disease; Visit Provider Internal Medicine Cardiovascular Disease
DX: I34.0 Nonrheumatic mitral (valve) insufficiency (principal); I35.0 Nonrheumatic aortic (valve) stenosis
CPT/HCPCS: 36415; 80048

== ENCOUNTER → 2019-08-19 14:01 | Outpatient (CLI) | payer MEDICARE, OTHER, SELFPAY ==
[2019-06-12 15:00] VITALS: BMI 25.5
[2019-08-21 15:19] LABS: Cancer Antigen 125 22.8 U/mL (0.0-38.1); Carcinoembryonic Antigen 4.1 ng/mL (0.0-4.7)
== END ==
PROVIDERS: PCP Family Medicine; Referring Provider Obstetrics & Gynecology; Visit Provider Obstetrics & Gynecology
DX: R97.0 Elevated carcinoembryonic antigen [CEA] (principal); R53.81 Other malaise
CPT/HCPCS: 36415; 82378; 86304; 97110

== ENCOUNTER 2019-08-26 10:30 | Outpatient (RCR) | payer MEDICARE, OTHER, SELFPAY ==
[2019-06-12 15:00] VITALS: BMI 25.5
--- NOTE | 2019-06-30 12:48 | HP.PTEVAL ---
Patient's Visit Information DANAE KYLE is a 79 year old F referred to Physical Therapy by Isrrael Carty MD with a diagnosis of Debility. Date of Evaluation: 06/30/19 Physical Therapist: Newton Fong, DPT, OCS, CSCS - Visit Plan Frequency: 2-3x /Week Duration: 4-6 Weeks Plan: 2-3x/week for 4- weeks but patient will be out of town for two weeks at the holidays. Will start with 3 visits prior to her departure to try adn get her I with a standing ex protocol for LE and core with pics as safety allows prior to leaving as wella s gastroc and HS stretches..(She will do seated exercise she learned at the [facility] immediately and I added seated VOR to that regimen 60 sec 2x/day. I will recheck balance and status upon return and consider progressing to gym ex or possibly pool if back pain has returned after vacation. - Subjective Findings: Previous therapy got interrupted as she spent 11 days in hospital with pneumonia. Got out Jun 18. Been home making Pik[employer] and [employer] cards and staying busy walking. No pain. Feels weak in legs. This limits her activity. Next day after on feet tooo much is exhausted adn gets jittery. Sleeping well. Using wh walker all the time. Was in therapy last month for back pain after seeing surgeon adn recommending water therapy but those were mostly cancelled due to pneumonia. Back pain hurts mostly if stadn too long 4/10 in LBP. Gone with sitting. Balance is not great and she needs it for 4 years due to balance. Basic ADLs are getting done just fatiguing. Has three steps into house and a basement with 14 steps with wears her out coming up. Has not been doing exercises at home but was given sitting LE exercises and pulling on band in hosptial. Is a [employer] gym member adn wants to get back to that gym workout.(bike, hip machines, leg press, knee flexion adn ext, BOSU ball, step ups and stretches, row and pull down.) Does nto feel like she can do them completely safely on her own yet. - Objective L hip still slightly higher than R despite heel lift on R. Walks 250 feet today without walker but is slow and labored adn gets fatigued easy without walker. Does much better and safe with wh walker another 200 feet today. Chitra out of chair needing UE. steps require two rails whcih she has at home and SOB at top of 10 steps. LE strength in hips 4-, knees 4/5 adn ankles 4-. tightness present in gastroc and HS moderately. Sensation normal to gross light touch in LE but has somewhat of a neuropathic gait pattern not liking to shift weight through forefoot. reflexes 1/3 patella and achilles B. LB AROM limited more by balance then motion and not painful today. - Balance Scores Functional Gait Assessment Score: 16 % Disability: 46.6700 CATSIB Score (Max score 120 seconds): 82 - Goals Goal 1:: FGA to diminish fall risk Goal Time Frame: 4-6 Weeks Goal 2:: Pt climb steps without SOB and using one railing safely. Goal Time Frame: 4-6 Weeks Goal 3:: Pt feel 50% better in ability to get around Goal Time Frame: 4-6 Weeks Goal 4:: Pt back to I gym based workout without back pain. Goal Time Frame: 4-6 Weeks - Rehabilitation Potential Physical Therapy Diagnosis: Weakness and imbalance. Rehabilitation Potential: Good - Anticipated Interventions Patient/Client Instruction: Educate patient on: Condition, Plan of Care For the Purpose of:: To increase tolerance to activity/condition/position, To improve ability of physical actions for home/community/work/leisure, To improve gait and locomotor functions Therapeutic Exercise to Include: Strength training, Flexibilty training, Gait and locomotor training, Passive ROM, Active ROM For the Purpose of:: To improve muscle performance and motor function, To increase tolerance to activity/condition/position, To improve ability of physical actions for home/community/work/leisure, To improve safety Thank you for the opportunity to evaluate your patient. For Medicare and Medicare HMO plans, please review the plan of care and approve it. It will need to be FAXED BACK to us at [phone] for Medicare purposes. For Medicare only, by signing this I certify the plan of care. Please let me know if there are questions or concerns regarding this plan of care. Physician Signature: Date:
--- NOTE | 2019-07-30 11:50 | HP.PTREVAL ---
Isrrael Carty MD, It has been my pleasure to treat DANAE KYLE over the last 4 visits for Debility. Please see the progress note below for an update on the physical therapy plan of care! Subjective: Still gets out of breath easily. Takes frequent breaks with counter exercises whcih she did while on vacation Objective/Function: Pts vaation has caused her to not be in therapy regularly. She has been doing HEP and has made some small improvements with feeling more steady and less tired but still fatigues way too easy. +3 on FGA but still super tired at end of testing especially steps. Recovers quickly from SOB. Appropriate to continue P[facility] fair prognosis Plan Plan: 3x/week x 3 weeks for. gait and balance for conditioning including steps. please add one or two LE/postural gym machines per visit to wean back to her previous gym workout. Goals Goal 1:: FGA to diminish fall risk Goal Time Frame: 4-6 Weeks Goal Progress: Progressing Goal 2:: Pt climb steps without SOB and using one railing safely. Goal Time Frame: 4-6 Weeks Goal Progress: one rail, still SOB Goal 3:: Pt feel 50% better in ability to get around Goal Time Frame: 4-6 Weeks Goal Progress: Progressing Goal 4:: Pt back to I gym based workout without back pain. Goal Time Frame: 4-6 Weeks Goal Progress: not yet. Anticipated Interventions Patient/Client Instruction: Educate patient on: Condition, Plan of Care For the Purpose of:: To increase tolerance to activity/condition/position, To improve ability of physical actions for home/community/work/leisure, To improve gait and locomotor functions Therapeutic Exercise to Include: Strength training, Flexibilty training, Gait and locomotor training, Passive ROM, Active ROM For the Purpose of:: To improve muscle performance and motor function, To increase tolerance to activity/condition/position, To improve ability of physical actions for home/community/work/leisure, To improve safety Please do not hesitate to contact me at [phone] by phone or if you have questions or concerns regarding this new plan of care! Sincerely, Newton Fong, DPT, OCS, CSCS
--- NOTE | 2019-10-20 13:36 | HP.PT.NRP ---
DANAE KYLE was seen in my office for initial evaluation on 06/30/19. The following Plan of Care was established for this patient: Initial Frequency: 2-3x /Week Initial Duration: 4-6 Weeks Patient/Client Instruction: Educate patient on: Condition, Plan of Care For the Purpose of:: To increase tolerance to activity/condition/position, To improve ability of physical actions for home/community/work/leisure, To improve gait and locomotor functions Therapeutic Exercise to Include: Strength training, Flexibilty training, Gait and locomotor training, Passive ROM, Active ROM For the Purpose of:: To improve muscle performance and motor function, To increase tolerance to activity/condition/position, To improve ability of physical actions for home/community/work/leisure, To improve safety This patient was last seen in our office 08/26/19. Pertinent comments regarding their Physical therapy will appear below: Pt seen 12 visits of POC but cancelled the last 4 without rescheduling. At this point, it has been nearly two months adn I will discontinue due to nonattendance. At this point I will be discontinuing this patient from physical therapy. I would be happy to see this patient again in the future if found appropriate by the physician. Thank you! Newton Fong, DPT, OCS, CSCS
== END 2019-08-26 19:00 | disposition home or self-care (01) ==
LOC: PT 10:30
PROVIDERS: Family Provider Family Medicine; PCP Family Medicine; Referring Provider Family Medicine Geriatric Medicine; Visit Provider Family Medicine Geriatric Medicine
DX: R53.81 Other malaise (principal)
CPT/HCPCS: 97110; 97116; 97162; 97530

== ENCOUNTER → 2019-08-27 | Outpatient (CLI) | payer MEDICARE, OTHER, SELFPAY ==
[2019-06-12 15:00] VITALS: BMI 25.5
--- NOTE | 2019-08-27 16:37 | MRI_ITS ---
STUDY: MRI LUMBAR SPINE WITHOUT CONTRAST REASON FOR EXAM: Female, 79 years old. Incontinence TECHNIQUE: Standardized fat and water weighted pulse sequences were obtained in the sagittal and axial planes. COMPARISON: 25 June 2019, 23 September 2015 FINDINGS: #Is intact. There is grade 1 degenerative anterolisthesis of L4 on L5, less than 5 mm. There are multilevel pedicular screws from T12 to S1 bilaterally. There are decompression laminectomies from L1 through S1. There is a large dorsal CSF signal fluid collection measuring 8-9 cm extending at the levels of from L1 to L4. Conus medullaris terminates at L1. Cauda equina is normal. Thecal sac is widely patent at all levels. There are multilevel various degree foraminal stenoses which are difficult to evaluate due to metallic hardware. MRI/Spine Lumbar (Routine) IMPRESSION: 1. L1-S1 pedicular hardware fusion. 2. L1-L4 decompressive laminectomies with patent thecal sac. 3. 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 Numerous surgical referral is advised. Electronically Signed: Juan Vazquez, at 17:53 EST Tel , Service support ,
== END | disposition home or self-care (01) ==
LOC: MRI 16:19
PROVIDERS: PCP Family Medicine; Referring Provider Urology; Visit Provider Urology
DX: N39.41 Urge incontinence (principal); R19.5 Other fecal abnormalities; Z98.1 Arthrodesis status
CPT/HCPCS: 72148

== ENCOUNTER → 2019-09-11 | Outpatient (CLI) | payer MEDICARE, OTHER, SELFPAY ==
[2019-08-31 10:16] VITALS: BMI 25.5
--- NOTE | 2019-09-11 12:40 | RAD_ITS ---
STUDY: X-RAY CHEST REASON FOR EXAM: Female, 79 years old. Fever and cough TECHNIQUE: PA and lateral views of the chest. COMPARISON: 06/08/2019 FINDINGS: There is hyperinflation of the lungs consistent with chronic obstructive lung disease (COPD). There is no demonstrated pleural abnormality. Normal size heart. Normal mediastinum and jonas. Normal visualized pulmonary arteries. Aortic stent graft noted Degenerative and postsurgical changes noted in the thoracic and lumbar spine. Normal visualized ribs, clavicles, and shoulders. There is no demonstrated abnormality of the visualized soft tissue structures of the upper abdomen. RAD/Chest PA and Lateral IMPRESSION: Hyperexpanded lungs, no superimposed acute pulmonary process Electronically Signed: Lexx Luciano MD at 13:57 EST , Service support ,
== END | disposition home or self-care (01) ==
LOC: RAD 12:26
PROVIDERS: PCP Family Medicine; Referring Provider Family Medicine; Visit Provider Family Medicine
DX: B34.9 Viral infection, unspecified (principal)
CPT/HCPCS: 71046

== ENCOUNTER → 2020-03-01 | Outpatient (CLI) | payer MEDICARE, OTHER, SELFPAY ==
[2019-08-31 10:16] VITALS: BMI 25.5
--- NOTE | 2020-03-01 14:21 | US_ITS ---
HISTORY: URINARY RETENTION ADDITIONAL HISTORY: None provided. COMPARISON: CT 06/25/2019. Ultrasound 05/16/2018 TECHNIQUE: Ultrasound of the kidneys and bladder performed with grayscale and color Doppler imaging. FINDINGS: RIGHT KIDNEY: 9.6 x 3.3 x 3.6 cm LEFT KIDNEY: 7.6 x 3.9 x 4.2 cm. Posterior medial left renal atrophy. ECHOGENICITY: Unremarkable. HYDRONEPHROSIS: None. CALCULI: None. RENAL LESIONS: 16 mm simple appearing right renal cyst. No further evaluation or follow-up warranted based upon consensus guidelines. BLADDER: Decompressed and therefore not evaluated. URETERAL JETS: Not visualized. US/Kidney and Bladder IMPRESSION: No acute renal abnormality is sonographically apparent. Left renal atrophy similar to previous CT. Right renal cyst. at 2339 Reported and signed by: Gila Manley MD Electronically Signed: Gila Manley MD at 23:39 EDT Tel , Service support ,
[2020-03-01 15:36] LABS: Hematocrit 34.7 % (37-47); Hemoglobin 10.9 g/dL (12.0-15.0); Mean Corp Hgb Conc 31.4 g/dL (32-36); Mean Corpuscular Hgb 30.4 pg (27.0-32.0); Mean Corpuscular Volume 96.9 fL (81-99); Mean Platelet Vol. 8.8 fl (6.2-12.0); Platelet Count 282 K/mm3 (150-450); RBC Distribution Width CV 14.9 % (11.6-14.6); RBC Distribution Width SD 52.2 fl (35.1-43.9); Red Blood Count 3.58 M/mm3 (4.2-5.4); White Blood Count 8.1 K/mm3 (4.4-11.0)
[2020-03-01 16:33] LABS: Anion Gap 6 (5-15); BUN 22 mg/dL (7-18); BUN/Creat Ratio 15.4 RATIO (10-20); Calcium,Total 9.3 mg/dL (8.5-10.1); Chloride 111 mmol/L (98-107); Creatinine, Serum 1.43 mg/dL (0.55-1.02); EST Glomerular Filtration Rate 37 mL/min (>60); Est Glom Filt Rate - Afr Amer 45 mL/min (>60); Glucose 93 mg/dL (74-106); Potassium 3.9 mmol/L (3.5-5.1); Sodium Level 141 mmol/L (136-145)
== END | disposition home or self-care (01) ==
PROVIDERS: PCP Family Medicine; Referring Provider Urology; Visit Provider Urology
DX: R33.9 Retention of urine, unspecified (principal)
CPT/HCPCS: 36415; 76770; 80048; 85027

== ENCOUNTER → 2020-03-29 11:00 | Outpatient (CLI) | payer MEDICARE, OTHER, SELFPAY ==
[2019-08-31 10:16] VITALS: BMI 25.5
[2020-03-07 10:42] VITALS: BMI 25.5
--- NOTE | 2020-03-29 12:10 | EKG12_ITS ---
Test Reason : PRE OP Blood Pressure : / mmHG Vent. Rate : 057 BPM Atrial Rate : 057 BPM P-R Int : 204 ms QRS Dur : 098 ms QT Int : 442 ms P-R-T Axes : 056 056 048 degrees QTc Int : 430 ms Sinus bradycardia Otherwise normal ECG Confirmed by AUDIE RODRIGUEZ, CODI ([id number]), image editor MARCELLA BEYER ([id number]) on 03/30/2020 11:13:46 AM Referred By: Vivian Cross Confirmed By:CODI BRONSON MD
[2020-03-29 13:16] LABS: AST(SGOT) 27 U/L (15-37); Alanine Aminotransfer ALT/SGPT 36 U/L (13-56); Albumin, Serum 3.2 g/dL (3.2-5.0); Alkaline Phosphatase 76 U/L (45-117); Bilirubin, Direct 0.09 mg/dL (0.00-0.30); Globulin 4.2 g/dL (2.2-4.2); Protein, Total 7.4 g/dL (6.4-8.2)
[2020-03-29 13:23] LABS: International Normalized Ratio 0.9; Partial Thromboplast Time 25.8 Seconds (24.1-36.2); Prothrombin Time (Protime)PT. 11.9 SECONDS (11.7-14.9)
== END ==
PROVIDERS: Anesthesiology; PCP Family Medicine; Referring Provider Urology; Visit Provider Urology
DX: Z11.59 Encounter for screening for other viral diseases (principal)
CPT/HCPCS: 36415; 80076; 85610; 85730; 87635; 93005; C9803; U0003

== ENCOUNTER 2020-05-28 07:33 | Emergency (ER) | payer MEDICARE, OTHER, SELFPAY ==
[2020-03-07 10:42] VITALS: BMI 25.5
[2020-05-28 07:35] VITALS: BP 207/79; PULSE 63; RESP 15; TEMP 36.3; O2SAT 97; BMI 25.4
--- NOTE | 2020-05-28 08:00 | RAD_ITS ---
STUDY: X-RAY CHEST REASON FOR EXAM: Female, 80 years old. patient states and quot;pill went down the wrong pipe and quot;, is having hard time catching breath TECHNIQUE: Single AP portable view of the chest. COMPARISON: 09/03/2019 FINDINGS: The lungs are clear and expanded. There is no demonstrated pleural abnormality. There is moderate cardiac enlargement. Normal mediastinum and jonas. Normal visualized pulmonary arteries. Stent graft in the descending thoracic aorta. Normal visualized thoracic spine. There is degenerative osteoarthritis of the bilateral shoulders. There is no demonstrated abnormality of the visualized soft tissue structures of the upper abdomen. RAD/Chest 1 View IMPRESSION: No change from 09/11/2019. Electronically Signed: Kyler Fuller MD at 8:21 EST Tel , Service support ,
--- NOTE | 2020-05-28 08:00 | ED.VIS.GEN ---
History of Present Illness Chief Complaint: Foreign Body Narrative: Patient presents with history of choking, she was taking 2 of her blood pressure medications this morning and felt the medications did not go down correctly. She then started coughing. She called the ambulance. Her symptoms have now resolved. She has no change in her voice she has no shortness of breath she has no abdominal pain no nausea or vomiting. She did cough or gag the pill fragments out. Review of systems: General: No loss of consciousness ENT: No dry mouth, no change in voice Cardiovascular: Denies: Chest pain, Palpitations Respiratory: Denies: Dyspnea, Cough Gastrointestinal: No Abdominal pain, Nausea, or vomiting Neurological: Denies: Headache, Weakness Physical exam General: Well nourished, Well developed, No Acute Distress, slightly anxious appearing Head: Normocephalic, Atraumatic Eyes: Conjunctiva not pale ENT: Moist mucous membranes, normal voice Neck: Supple, Nontender, No lymphadenopathy Cardiovascular: Regular rate, Regular rhythm Respiratory: No distress, CTA bilaterally Abdomen: Soft, Nontender, Nondistended Back: Nontender, Normal Inspection. Negative for: CVA tenderness Extremities: Nontender, No edema Skin: Normal color, No rash Neurological: Alert, Normal Strength, Normal Sensation Past Medical History - Allergies and Home Meds Allergies/Adverse Reactions: Allergies bisoprolol Allergy (Verified 05/28/20 07:40) Unknown levofloxacin [From Levaquin] Allergy (Verified 05/28/20 07:40) Unknown meloxicam Allergy (Verified 05/28/20 07:40) Unknown Sulfa (Sulfonamide Antibiotics) Allergy (Verified 05/28/20 07:40) Unknown CODEINE COUGH SYRUP Adverse Reaction (Uncoded 05/28/20 07:40) Other BP ELEVATION. PT STATES ABLE TO TAKE PAIN MEDS WITH CODEINE WITHOUT TROUBLES Primary Care Physician: Jason Chinchilla MD [Primary Care Provider] - Past Medical History: - - Hypertension, GERD, history of descending aortic dissection Surgical History: - Smoking Status: Former smoker - Family History Maternal Family History: Family History (Last Reviewed 03/07/20 @ 09:53 by Andreia Wolf) Mother CAD (coronary artery disease) Daughter Breast cancer Sister Breast cancer Father Brain aneurysm Family History: Reports: Hypertension Paternal Family History: Family History (Last Reviewed 03/07/20 @ 09:53 by Andreia Wolf) Mother CAD (coronary artery disease) Daughter Breast cancer Sister Breast cancer Father Brain aneurysm Family History: Reports: Heart Disease Physical Exam Vital Signs/Narrative: Vital Signs Temp Pulse Resp BP Pulse Ox 05/28/20 07:35 97.3 F L 63 15 207/79 H 97 Diagnostic/Tx/Re-eval Chest X-Ray - ED: 1 View, Read by ED Physician, - - Chest x-ray read by emergency doctor shows prior hardware in her lumbar spine. There is a descending aortic stent. The lung doherty are normal. - Medical Decision Making Patient has a normal emergency department x-ray she appears well she is able to drink water she has clear lungs bilaterally. I reassured her and I will discharge her in stable condition. ED Disposition - Plan for ED Patient: Disposition: Home or Assisted Living Diagnosis: Choking episode Instructions: ED Choking Adult Referrals: Jason Chinchilla MD [Primary Care Provider] - 1 Week
[2020-05-28 08:25] VITALS: BP 199/78; PULSE 62; RESP 15; O2SAT 96
== END 2020-05-28 08:46 | disposition home or self-care (01) ==
LOC: ED 08:15
PROVIDERS: Emergency Provider Emergency Medicine; PCP Family Medicine
DX: R09.89 Other specified symptoms and signs involving the circulatory and respiratory systems (principal); K21.9 Gastro-esophageal reflux disease without esophagitis; I10 Essential (primary) hypertension; Z79.899 Other long term (current) drug therapy; Z87.891 Personal history of nicotine dependence
CPT/HCPCS: 71045; 99284

== ENCOUNTER → 2020-06-17 13:56 | Outpatient (CLI) | payer MEDICARE, OTHER, SELFPAY ==
[2020-03-07 10:42] VITALS: BMI 25.5
[2020-06-15 13:53] VITALS: BMI 24.6
--- NOTE | 2020-06-17 13:58 | BI_ITS ---
MAMMOGRAPHY - BILATERAL SCREENING REASON FOR EXAM: Female, 80 years old. Routine annual screening examination. PERTINENT HISTORY: Daughter with breast cancer. TECHNIQUE: Digital bilateral breast dionicio (3D mammographic acquisition) in the CC and MLO projections. 2-D mediolateral oblique (MLO) and craniocaudad (CC) views of both breasts were obtained. CAD: Full Field Digital Mammography with Computer Added Detection was performed. COMPARISON: Comparison is made with prior study dated 12/24/2018 and 11/14/2017. FINDINGS: Breast Composition: The breasts are heterogeneously dense, which may obscure small masses. There are no dominant masses or suspicious calcifications. Stable benign-appearing bilateral axillary lymph nodes. No other significant abnormalities are identified. There has been no significant change since the prior study. BI/SCREEN MAMM (CAD) W/DIONICIO BILAT IMPRESSION: Stable bilateral screening mammogram. Yearly follow-up mammogram recommended. (A) ASSESSMENT CATEGORY: BIRADS Category 2: Benign. A letter regarding these results will be sent to the patient by the facility within 30 days. Approximately 10% of breast cancers are not detected by mammography. A normal mammogram should not delay biopsy of a clinically suspicious abnormality. [id number] Electronically Signed: Selvin Price, at 14:41 EST , Service support ,
== END ==
PROVIDERS: PCP Family Medicine; Referring Provider Obstetrics & Gynecology; Visit Provider Obstetrics & Gynecology
DX: Z12.31 Encounter for screening mammogram for malignant neoplasm of breast (principal)
CPT/HCPCS: 77063; 77067

== ENCOUNTER 2020-08-04 13:44 | Outpatient (RCR) | payer MEDICARE, OTHER, SELFPAY ==
[2020-06-15 13:53] VITALS: BMI 24.6
== END 2020-08-04 23:59 ==
LOC: IMMUN 13:44
PROVIDERS: PCP Family Medicine; Visit Provider Family Medicine
DX: Z23 Encounter for immunization (principal)
CPT/HCPCS: 0011A; 0012A; 91301

== ENCOUNTER 2020-11-14 11:00 | Outpatient (RCR) | payer MEDICARE, OTHER, SELFPAY ==
[2020-06-15 13:53] VITALS: BMI 24.6
--- NOTE | 2020-10-26 10:12 | HP.OTEVAL_ITS ---
Patient's Visit Information DANAE KYLE is a 80 year old F, referred to Occupational Therapy by Dr. Elias Kwok MD, with a diagnosis of right primary osterarthritis cmc joint. Date of Evaluation: 10/26/20 Occupational Therapist: Guera Cedeño, OTR/[place], CHT - Subjective This 80 year old female was seen for OT eval with dx of right unilateral primary osteoarthritis of first carpometacarpal joint. pt states the last month she has had increased pain, thumb contimes to be painful at night. pt states she does get pain and numbness with leaning on her UE and she needs to do this for support due to her back and LE weakness. pt would like to know what she can do to limit pain if her right hand with ADLs and IADsl - ADLs Dressing: Pants, Shoes Fasteners: Zippers Bathing: Squeeze shampoo bottle Kitchen: Peel fruits & vegetables, Open jars, Open bottle caps - Pain right hand 0 Pain Intensity Range: 6 - ROM Wrist: right 45/30 left 55/50 CMC: right 15 left 20 MP: right 45 left 50 IP: right 60 left 65 - Strength Chief Cardiopulmonary Technologist: right 30# left 40# Lateral Pinch: right 10# left 12# Tripod Pinch: right 4# left 6# - Special Tests CMC Grind: positive - Quick DASH-Disab of Arm,Shoulder& Hand Quick DASH Score: 63.6350 - Goals Goal:: pt will demo a increase in right wrist ROM by 15* or greater to increase pts ind. with ADls and IADls by d/c Goal:: pt will report pain no greater than 1/10 with use of right UE with ADls and IADls by d/c Goal:: pt will demo understanding of joint protection by d/c to decrease stress on joints with daily tasks. pt will demo understanding of ad. eq. to use with A DLs to increase pts ind. with daily tasks as cooking/cleaning etc. Goal:: Pt will demo ind. Donning/doffing of custom orthosis by end of 1st session. Pt will demonstrate understanding of orthosis use and precautions by end of 1st session and demonstrate knowledge of returning to clinic if orthosis needs adj. to increase comfort by end of 1st session. - Rehabilitation General Assessment: pt demo with limited ROM/weakness and pain of right wrist/hand limiting pts ind. with ADls and IADls. Pt demo with right CMC shoulder sign with MP hyper-ext. pt would benefit from skilled OT services 1x week for 3 weeks to ensure orthosis is providing protection and support for daily tasks, as well as ed. pt on joint protection and ad. eq. to incrase her ind. with bathing/dressing and cooking tasks. Today therapist river. custom right hand thumb spica- ed. pt on use and care- pt demo understanding and agree to POC. Rehabilitation Potential: Good - Anticipated Interventions A/AAROM/PROM, Strengthening, Triggerpoint Release, Modalities, Orthoses, Joint Protection/Energy Conservation, Ergonomic Education, ADL Training, Education re assistive Equipment, Education re Diagnosis - Visit Plan Frequency: 1-2x /Week Duration: 4 Weeks TEXT: Thank you for the opportunity to evaluate your patient. For Medicare and Medicare HMO plans, please review the plan of care and approve it. It will need to be FAXED BACK to us at [phone] for Medicare purposes. Please let me know if there are questions or concerns regarding this plan of care. Physician Signature: Date:
== END 2020-11-14 19:00 | disposition home or self-care (01) ==
LOC: OT 11:00
PROVIDERS: PCP Family Medicine; Referring Provider Specialist; Visit Provider Specialist
DX: M18.11 Unilateral primary osteoarthritis of first carpometacarpal joint, right hand (principal); M19.032 Primary osteoarthritis, left wrist; M19.031 Primary osteoarthritis, right wrist
CPT/HCPCS: 97035; 97166; 97530; 97760; 97763

== ENCOUNTER → 2020-11-14 12:05 | Outpatient (CLI) | payer MEDICARE, OTHER, SELFPAY ==
[2020-06-15 13:53] VITALS: BMI 24.6
--- NOTE | 2020-11-14 12:12 | RAD_ITS ---
STUDY: X-RAY - LEFT SHOULDER REASON FOR EXAM: Left shoulder pain, no specific injury. TECHNIQUE: 5 view(s) of the shoulder. COMPARISON: None. FINDINGS: There are marginal osteophytes, subchondral eburnation and severe joint space narrowing of the glenohumeral articulation. There is acromioclavicular arthrosis. Normal acromion. Normal humeral head and visualized proximal humerus. There is an intra-articular body in the axillary bursa. There is a stent graft in the thoracic aorta. RAD/Shoulder min 2 Views IMPRESSION: Glenohumeral arthrosis with intra-articular body. Acromioclavicular arthrosis. Electronically Signed: Miko Neville MD at 13:16 EDT Tel , Service support ,
== END ==
PROVIDERS: PCP Family Medicine; Referring Provider Family Medicine; Visit Provider Family Medicine
DX: M25.512 Pain in left shoulder (principal)
CPT/HCPCS: 73030

== ENCOUNTER → 2020-12-05 14:31 | Outpatient (CLI) | payer MEDICARE, OTHER, SELFPAY ==
[2020-06-15 13:53] VITALS: BMI 24.6
--- NOTE | 2020-12-05 14:34 | RAD_ITS ---
STUDY: X-RAY CHEST REASON FOR EXAM: Female, 80 years old. COUGH TECHNIQUE: PA and lateral views of the chest. COMPARISON: 05/28/2020 FINDINGS: The lungs are clear and expanded. There is no demonstrated pleural abnormality. Normal size heart. Normal mediastinum and jonas. Normal visualized pulmonary arteries. Stent graft in the descending thoracic aorta. Normal visualized thoracic spine. Normal visualized ribs, clavicles, and shoulders. There is no demonstrated abnormality of the visualized soft tissue structures of the upper abdomen. RAD/Chest PA and Lateral IMPRESSION: No active disease. Electronically Signed: Kyler Fullre MD at 8:06 EDT Tel , Service support ,
== END ==
PROVIDERS: PCP Family Medicine; Referring Provider Family Medicine; Visit Provider Family Medicine
DX: J45.909 Unspecified asthma, uncomplicated (principal)
CPT/HCPCS: 71046

== ENCOUNTER → 2020-12-27 08:56 | Outpatient (CLI) | payer MEDICARE, OTHER, SELFPAY ==
[2020-06-15 13:53] VITALS: BMI 24.6
--- NOTE | 2020-12-27 09:30 | RAD_ITS ---
PROCEDURE: Fluoroscopic guided left shoulder Injection DATE: 12/27/2020. INDICATION: Female, 80 years old. Chronic left shoulder pain. PHYSICIAN: Selvin Price M.D. MEDICATIONS: 12 mg of BETAMETHASONE and 4 cc of 1% LIDOCAINE. 2% Lidocaine administered subcutaneously for local anesthesia. ACCESS SITE: Left shoulder. NEEDLE: 22-gauge spinal needle. FLUOROSCOPY TIME (if supplied): (0:46) minutes/seconds. One image was obtained. FINDINGS: The risks, benefits, and alternatives to the procedure were explained to the patient. The specific risks of bleeding, infection, and neurovascular injury were detailed and accepted. Witnessed informed consent was obtained. A 22-gauge spinal needle was positioned under radiographic fluoroscopic localization. Approximately 2 cc of ISOVUE-300 instilled for localization purposes. Medication was then injected. The patient tolerated the procedure well without any immediate complications. RAD/Inj/Asp Marito Jt Should/Hip/Knee IMPRESSION: 1. Successful fluoroscopic guided left shoulder injection. Electronically Signed: Selvin Price MD at 10:18 EDT , Service support ,
== END ==
PROVIDERS: PCP Family Medicine; Referring Provider Specialist; Visit Provider Specialist
DX: M19.012 Primary osteoarthritis, left shoulder (principal)
CPT/HCPCS: 20610; 77002; Q9967; J0702

== ENCOUNTER 2021-01-19 17:00 | Outpatient (RCR) | payer MEDICARE, OTHER, SELFPAY ==
[2020-06-15 13:53] VITALS: BMI 24.6
--- NOTE | 2020-11-22 11:51 | HP.PTEVAL ---
Patient's Visit Information DANAE KYLE is a 80 year old F referred to Physical Therapy by Juancarlos Lazcano PA-C with a diagnosis of L shoulder OA. Date of Evaluation: 11/22/20 Physical Therapist: Newton Fong, DPT, OCS, CSCS - Visit Plan Frequency: 2x /Week Duration: 4-6 Weeks Plan: 2x/week for 4-6 weeks(3 to start) for. instruction and monitor of non damaging ROM exerciss to shoulder and mobs as needed for pain. Stretch pectorals. strengthen RC and posture without pain and progressing to HEP. MH, mobs Es if needed for pain. - Subjective Uses walker for gait. Is here for shoulder L as she has OA. Certain movements cause pain to L shoulder reaching out or back. Is comfortable at rest in neutral position. Pain to 6/10 with reaching and lingers sometimes if she overdoes it. using cream to ehp with pain. Use MH which helps. Is R handed. L shoulder has been hurting for a couple months. Doctor gave cortisone shot which helped a little for a day or two. Needs shoulder replacement but not desired at this point. Basic ADLs are modified to dress but can do it unless real irritated. Cooks and showers I. Cleaning house is interrupted as she cannto vaccuum easily but can sweep and dust with R UE. Not employed. Hobbies include scrap booking and cardmaking which she can do for an hour then needs a break. - Pain L shoulder Pain Intensity (Out of 10): 0 Pain Intensity Range: 0, 6 - Objective Walks mod I with walker mostly pushing it into PT . Transitions I. Scapular ROM WFL and symmetrical. Posture is FW head and slightly anterior protracted scap. Tender at G-H joint line anteriorlya dn posteiorly. Cervical aROM wFL and painfree. Shoulder AROM R WNL, L is 145 flexion and 145 abd with slight discomfort. Ext rotation is 45 L and 60 R. Ir is slightly painful L and L5 vs L2 R. reflexes 2/3 bi and tri. Sensation UE WNL to gross lgiht touch. Strength shoulders 3+ IR/ER B without pain. flexion 3+ B. abd 3 L and 3+ R with L pain. bi and tric 4- B without pain. - ext rotation lag test. - sulcus. - drop arm. slight + L scour of shoulder. - Goals Goal 1:: I approp HEp to manage OA of L houlder Goal Time Frame: 4-6 Weeks Goal 2:: Pt feel 505 better in L shoulder with pain no worse than 3/10 Goal Time Frame: 4-6 Weeks Goal 3:: Hobbies at home without increased pain Goal Time Frame: 4-6 Weeks - Rehabilitation Potential Physical Therapy Diagnosis: L shoulder OA with some pain. Rehabilitation Potential: Fair - Anticipated Interventions Patient/Client Instruction: Educate patient on: Condition, Plan of Care For the Purpose of:: To decrease pain, To increase ROM Therapeutic Exercise to Include: Strength training, Postural training, Flexibilty training, Passive ROM, Active ROM, Scapular Strength/Stabilization For the Purpose of:: To decrease pain, To increase ROM, To improve muscle performance and motor function, To increase tolerance to activity/condition/position Manual Therapy Techniques to Include: Mobilization For the Purpose of:: To decrease pain, To increase ROM TENS: Yes Thermo therapy (hot pack): Yes For the Purpose of:: To decrease pain Thank you for the opportunity to evaluate your patient. For Medicare and Medicare HMO plans, please review the plan of care and approve it. It will need to be FAXED BACK to us at [phone] for Medicare purposes. For Medicare only, by signing this I certify the plan of care. Please let me know if there are questions or concerns regarding this plan of care. Physician Signature: Date:
--- NOTE | 2020-12-21 13:17 | HP.PTREVAL ---
Juancarlos Lazcano PA-C, It has been my pleasure to treat DANAE KYLE over the last 7 visits for L shoulder OA. Please see the progress note below for an update on the physical therapy plan of care! Subjective: Getting better. Motion in L shoulder feels much better. Less pain and moving better. Still limited in lifting heavy up high. Can get hand behind back now. Doing exercises at home with stick and circles on wall and shoulder rolls all for ROM. Has band at home. Wants to continue more therapy. Objective/Function: 160 AROM L shouldr flexion 60 ext rotation adn to L4 IR. Srength is 4-/5 in shoulder with pain with abduction adn slightly flexion at 90. Otherwsie looking adn feeling much better. Plan Plan: continue HEP, f/u 3 weeks for d/c if doing well, may need to progress to elevation ex. Call prior if worsens. Will have injection with doctor prior. Goals Goal 1:: I approp HEp to manage OA of L chantal Goal Time Frame: 4-6 Weeks Goal Progress: Goal Met Goal 2:: Pt feel 505 better in L shoulder with pain no worse than 3/10 Goal Time Frame: 4-6 Weeks Goal Progress: Goal Met Goal 3:: Hobbies at home without increased pain Goal Time Frame: 4-6 Weeks Goal Progress: Progressing Anticipated Interventions Patient/Client Instruction: Educate patient on: Condition, Plan of Care For the Purpose of:: To decrease pain, To increase ROM Therapeutic Exercise to Include: Strength training, Postural training, Flexibilty training, Passive ROM, Active ROM, Scapular Strength/Stabilization For the Purpose of:: To decrease pain, To increase ROM, To improve muscle performance and motor function, To increase tolerance to activity/condition/position Manual Therapy Techniques to Include: Mobilization For the Purpose of:: To decrease pain, To increase ROM TENS: Yes Thermo therapy (hot pack): Yes For the Purpose of:: To decrease pain Please do not hesitate to contact me at [phone] by phone or if you have questions or concerns regarding this new plan of care! Sincerely, Newton Fong, DPT, OCS, CSCS
--- NOTE | 2021-01-19 17:21 | HP.PTDCSUM ---
It has been my pleasure to treat DANAE KYLE referred by Juancarlos Lazcano PA-C, with the diagnosis of L shoulder OA for a total of 8 visit(s). Discharge Date: 01/19/21 Please see the following information for a summary of their discharge status. Subjective: Got an injection in shoulder and that has helped. Was sore yesterday but that may have been due to weather. Otherwise it has been pretty good. Exercises are going well at home. Soreness range form 5 /10 in L shouder and most days 0-1/10. sleep is good. No appointment with doctor soon. Activities at home are ot limited due to shoulder. Back does limit her at times if can't hold on to walker. Exercises 2x15 with exercises daily. L shoulder Pain Intensity (Out of 10): 0 % Improvement: 95 Objective/Function: Full aROM with just some slowness with abd L shoulder. strength 4-/5 without increased pain flexion, er, ir, ext, abd but abd does have some crepitus. Walking well and safe with walker pushing vs WB. Goal 1:: I approp HEp to manage OA of L houlder Goal Progress: Goal Met Goal 2:: Pt feel 505 better in L shoulder with pain no worse than 3/10 Goal Progress: Goal Met Goal 3:: Hobbies at home without increased pain Goal Progress: Goal Met shoulder. Plan: d/c to HEP If there are questions or concerns regarding this patient's physical therapy, please feel free to call me at [phone]. Thank you for the referral of this patient. Sincerely, Newton Fong, DPT, OCS, CSCS
== END 2021-01-19 19:00 | disposition home or self-care (01) ==
LOC: PT 17:00
PROVIDERS: PCP Family Medicine; Referring Provider Physician Assistant; Visit Provider Physician Assistant
DX: M19.012 Primary osteoarthritis, left shoulder (principal)
CPT/HCPCS: 97110; 97161; 97164; 97530

== ENCOUNTER → 2021-07-13 13:43 | Outpatient (CLI) | payer MEDICARE, OTHER, SELFPAY ==
--- NOTE | 2021-07-13 13:44 | BI_ITS ---
MAMMOGRAPHY - BILATERAL SCREENING 3-D TOMOSYNTHESIS REASON FOR EXAM: Female, 81 years old. screening for breast cancer PERTINENT HISTORY: No significant family history. TECHNIQUE: 2-D mammograms and 3-D Tomosynthesis of the breast (s) were performed. CAD was performed. COMPARISON: 06/17/2020 FINDINGS: The breast composition is heterogeneously dense that can obscure small breast masses. Scattered benign calcifications are seen. No dense spiculated masses or suspicious microcalcifications are identified. No architectural distortion is identified. There is no skin thickening or retraction. There has been no significant change since the prior study. BI/SCRN MAMM (CAD)W/DIONICIO BILAT IMPRESSION: No mammographic signs of malignancy. Routine yearly mammograms recommended. ASSESSMENT CATEGORY: BIRADS Category 1: Negative. A letter regarding these results will be sent to the patient by the facility within 30 days. FOLLOW UP RECOMMENDATION: Yearly follow up mammogram recommended. (A) Approximately 10% of breast cancers are not detected by mammography. A normal mammogram should not delay biopsy of a clinically suspicious abnormality. Electronically Signed: Kyler Fuller MD at 15:02 EST Tel , Service support ,
--- NOTE | 2021-07-13 14:06 | BD_ITS ---
STUDY: DUAL ENERGY X-RAY ABSORPTIOMETRY / DXA REASON FOR EXAM: Female, 81 years old. hx osteopenia TECHNIQUE: Bone Mineral Density (BMD) measurements of right hip and right wrist were obtained. COMPARISON: Comparison is made with prior study dated 11/14/2017. FINDINGS: Right Femur Total: g/cm2 (0.636) / T-score (-2.5) / Z-score (-0.3) Right Femoral Neck: g/cm2 (0.541) / T-score (-2.8) / Z-score (-0.3) Right Forearm: g/cm2 (0.532) / T-score (-0.9) / Z-score (2.5) The T-Scores on the most recent prior examination were: Right Femur Total: which represents an improvement of 6.3%. BD/Dexa Bone Density Study IMPRESSION: The patient is considered osteoporotic as outlined below according to World Joey Organization (WHO) criteria with a high fracture risk. There has been worsening of bone density since the previous examination. Reference Information: The T-score is the number of standard deviations above or below the standard which is normal for young adults at their peak bone mineral density. The World Health Organization (WHO) interprets the T-scores as follows: Above -1 Normal bone density Between -1 and -2.5 Osteopenia Equal to / or below -2.5 Osteoporosis As a practical clinical guideline, osteopenia may be graded as follows: Mild -1 through -1.5 Moderate -1.6 through -2.0 Severe -2.1 through -2.4 The Z-score is the number of standard deviations above or below age-matched controls. A Z-score of less than -1.5 would be considered abnormal. References: 1. NIH Osteoporosis and Related Bone Diseases www osteo.org 2. International Society for Clinical Densitometry www iscd.org 3. National Osteoporosis Foundation www nof.org Electronically Signed: Selvin Price MD at 9:42 EST , Service support ,
== END ==
PROVIDERS: PCP Family Medicine; Visit Provider Nurse Practitioner Women's Health
DX: Z12.31 Encounter for screening mammogram for malignant neoplasm of breast (principal); Z78.0 Asymptomatic menopausal state; M81.0 Age-related osteoporosis without current pathological fracture
CPT/HCPCS: 77063; 77067; 77080

== ENCOUNTER → 2021-12-06 | Outpatient (CLI) | payer MEDICARE, SELFPAY ==
--- NOTE | 2021-12-06 12:06 | US_ITS ---
INDICATION: NODULES ON CT EXAMINATION: Ultrasound US Thyroid (eg thyroid, parathyroid, parotid) TECHNIQUE: Anderson scale and color doppler imaging was performed of the thyroid gland. COMPARISON: None. FINDINGS: RIGHT THYROID LOBE: 4.9 x 2.5 x 2.5 cm. Heterogeneous echotexture with normal vascularity. [Multiple thyroid nodules. 2 largest as follow: * 2.6 x 1.9 x 1.7 cm right upper pole thyroid nodule is predominantly solid, hyperechoic, wider than tall, has smooth margins, no calcifications and internal vascularity (TIRADS 3). * 1.1 x 1.0 x 0.6 cm right mid to lower thyroid nodule is mixed cystic and solid, anechoic, wider than tall, has smooth margins, no calcifications and no internal vascularity (TIRADS 1). LEFT THYROID LOBE: 5.3 x 1.4 x 2.2 cm. Heterogeneous echotexture with normal vascularity. [Multiple thyroid nodules. 2 largest as follow: * 0.9 x 0.7 x 0.8 cm left mid thyroid nodule is mixed cystic and solid, anechoic, wider than tall, has smooth margins, no calcifications, and no internal vascularity (TIRADS 1). * 1.7 x 1.5 x 1.6 cm left mid to lower thyroid nodule is mixed cystic and solid with isoechoic solid components. It is minimally taller than wide, has smooth borders, no calcifications, no internal vascularity (TIRADS 4). ISTHMUS: 2 m. No thyroid nodules are present. US/Thyroid IMPRESSION: Multiple bilateral thyroid nodules as detailed above. Although findings likely related to a multinodular goiter, biopsy of the the right TIRADS 3 and left TIRADS 4 nodule is recommended per TIRADS criteria. Electronically Signed: Win Angel, at 9:19 EDT ,
== END | disposition home or self-care (01) ==
PROVIDERS: PCP Family Medicine; Referring Provider Family Medicine; Visit Provider Family Medicine
DX: E04.2 Nontoxic multinodular goiter (principal)
CPT/HCPCS: 76536

== ENCOUNTER 2021-12-08 09:27 | Outpatient (RCR) | payer MEDICARE, SELFPAY ==
--- NOTE | 2021-12-08 10:16 | HP.PTEVAL_ITS ---
Patient's Visit Information DANAE KYLE is a 81 year old F referred to Physical Therapy by MARSHAL DAVIES with a diagnosis of Lumbar and thoracic stenosis. Date of Evaluation: 12/08/21 Physical Therapist: Newton Fong, MANT, OCS, CSCS - Visit Plan Frequency: 3x /Week Duration: 4-6 Weeks Plan: 3x/week for 3-4 weeks for. 1. teach and progress back ROM and LE quad and HS stretching ex. 2. Gym based core adn LE and postural strengtheing taught for I silver sneakers usage. - Subjective My back brings me here. Had aortic disection and put stent in aorta. Had f/u with vascular doctor and catscan said all is fine but had back pain history r elieved by surgery(fusion t12) in 2017 but stent caused back pain to return. Referred to spine surgeon. she saw nurse practitioner who ordered CT myelogram and results were a screw loose, surgeon said there is a loose screw but not surgical in his opinion. Gave order for PT to see if it would help. Was already on hemp gummy nightly and oxycodone 5 mg nightly. Pain is worse at end of day, standing long time makes her worse. Lying on MH for 20 minutes helps. Pain is in mid back under shoulder blades and gets up to 7/10. uses walker to get around as it helps her get further. Does not use wh walker all the time at home. No arm or leg symptoms. No numbness or tingling. No falls. Sleep is good. Not employed. Spends day hanging/walking puppy down the street. Enjoys making cards and scrapbooking all in sitting. No regular exercises for back - Pain mid back pain Pain Intensity (Out of 10): 0 Pain Intensity Range: 0, 7 - Objective Uses wh walker to get around most of time, trasnfers I, I with gait modified. Steps recirpocal with two rails mod I.Can walk short distances without walker safely wihtout pain today.Lb AROM into thoracic is max limited in extension, min limited in flexion, SB and rotations max limited. No tenderness in soft tissue of spine but stiff feeeling and PA pressure to lumbar and thoracic vertebrae are slightly uncomfortable. quads and hip flexors and HS all max tight. with a -40 90/90 test B. - slump and - SLR test. core strength is 3/5 and much difficulty rolling due to weakness vs pain. LE strength 4/5 without myotomal problems. reflexes 2/3 B patella and achilles. Sensation WNL to gross light touch in LE. - Balance/Special Test Scores Functional Gait Assessment Score: 23 % Disability: 23.3400 Oswestry Low Back Score: 10 - Goals Goal 1:: Pain 2/10 at worst and 75% better. Goal Time Frame: 4-6 Weeks Goal 2:: I management of condition for HEp to minimize pain(gym and NS) Goal Time Frame: 4-6 Weeks Goal 3:: Stadn to do dishes at home without increased pain. Goal Time Frame: 4-6 Weeks Goal 4:: < 5/10 score on oswestry Goal Time Frame: 4-6 Weeks - Rehabilitation Potential Physical Therapy Diagnosis: Degenerative changes in spine leading to pain, stiffness and diminished funciton. Rehabilitation Potential: Fair - Anticipated Interventions Patient/Client Instruction: Educate patient on: Condition, Plan of Care For the Purpose of:: To decrease pain, To decrease swelling/inflammation, To improve muscle performance and motor function, To improve ability to perform ADL's Therapeutic Exercise to Include: Strength training, Postural training, Flexibilty training, Passive ROM, Active ROM, Dynamic Lumbar Stabilization, Scapular Strength/Stabilization For the Purpose of:: To decrease pain, To increase ROM, To improve muscle performance and motor function, To increase tolerance to activity/condition/position, To improve ability of physical actions for home/community/work/leisure Thank you for the opportunity to evaluate your patient. For Medicare and Medicare HMO plans, please review the plan of care and approve it. It will need to be FAXED BACK to us at [phone] for Medicare purposes. For Medicare only, by signing this I certify the plan of care. Please let me know if there are questions or concerns regarding this plan of care. Physician Signature: Da te:
--- NOTE | 2022-01-18 16:28 | HP.PT.NRP ---
DANAE KYLE was seen in my office for initial evaluation on 12/08/21. The following Plan of Care was established for this patient: Initial Frequency: 3x /Week Initial Duration: 4-6 Weeks Patient/Client Instruction: Educate patient on: Condition, Plan of Care For the Purpose of:: To decrease pain, To decrease swelling/inflammation, To improve muscle performance and motor function, To improve ability to perform ADL's Therapeutic Exercise to Include: Strength training, Postural training, Flexibilty training, Passive ROM, Active ROM, Dynamic Lumbar Stabilization, Scapular Strength/Stabilization For the Purpose of:: To decrease pain, To increase ROM, To improve muscle performance and motor function, To increase tolerance to activity/condition/position, To improve ability of physical actions for home/community/work/leisure This patient was last seen in our office 12/08/21. Pertinent comments regarding their Physical therapy will appear below: Pt seen for initial evaluation and POC was established. Approval received but patient did not return calls to schedule visits. at this point, it has been over 5 weeks and I will discontinue due to nonattendance. At this point I will be discontinuing this patient from physical therapy. I would be happy to see this patient again in the future if found appropriate by the physician. Thank you! Newton Fong, DPT, OCS, CSCS Balance/Gait/Functional tests - Balance/Special Test Scores Functional Gait Assessment Score: 23 % Disability: 23.3400 Oswestry Low Back Score: 10
== END 2021-12-08 19:00 | disposition home or self-care (01) ==
LOC: PT 09:27
PROVIDERS: PCP Family Medicine
DX: M48.02 Spinal stenosis, cervical region (principal); M48.04 Spinal stenosis, thoracic region; M48.061 Spinal stenosis, lumbar region without neurogenic claudication; T84.216D Breakdown (mechanical) of internal fixation device of vertebrae, subsequent encounter; X58.XXXD Exposure to other specified factors, subsequent encounter; M41.125 Adolescent idiopathic scoliosis, thoracolumbar region
CPT/HCPCS: 97162

== ENCOUNTER 2021-12-25 18:22 | Emergency (ER) | payer MEDICARE, SELFPAY ==
[2021-12-25] VITALS (8 sets, daily range): BP systolic 143–160; BP diastolic 62–72; PULSE 65–82; RESP 14–22; TEMP 37.2–37.7; O2SAT 88–96; BMI 25.3
--- NOTE | 2021-12-25 19:40 | EKG12_ITS ---
Test Reason : EXTREMITY PAIN Blood Pressure : / mmHG Vent. Rate : 068 BPM Atrial Rate : 068 BPM P-R Int : 182 ms QRS Dur : 086 ms QT Int : 394 ms P-R-T Axes : 041 037 047 degrees QTc Int : 418 ms Normal sinus rhythm Normal ECG Confirmed by AUDIE RODRIGUEZ, CODI ([id number]), publishing editor MARCELLA BEYER ([id number]) on 12/27/2021 9:58:33 AM Referred By: BB Confirmed By:CODI BRONSON MD
--- NOTE | 2021-12-25 19:42 | EX.ED.UPPERE ---
HPI History of Present Illness Chief Complaint: Upper Extremity Injury Informant: patient and spouse/S.O. Onset/Context/Timing Onset: Yesterday Context: Gradual Onset Timing: Continuous Quality of Pain: Aching Location: L shoulder Current Severity: Severe Maximum Severity: Severe Worsened by: movement Relieved by: oxycodone a little Associated Symptoms Associated Symptoms: Positive for Loss of Funtion; Negative for Parasthesia and Weakness Narrative Narrative: Patient was spontaneous onset of pain in her left shoulder yesterday that has progressively gotten worse. She states she rode in the car to [place] which is less than an hour away, was holding their dog with her arm, but she did not have severe pain yesterday just became more severe today as it has progressed. She developed a fever today somewhere between 100-101, she denies any other symptoms. She did not take anything for the temperature which is down now. She states the only issue she has had with the left shoulder was some arthritis she was diagnosed with 2 or 3 years ago when she had an issue in that shoulder and went to see orthopedics Dr. Kwok but she has had no issues since then until now. Siavz-dcgc-vemxhbzo. No injuries to it. 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) Essential (primary) hypertension GERD (gastroesophageal reflux disease) History of deep venous thrombosis (DVT) of distal vein of right lower extremity History of stent insertion of renal artery (~07/30/18) Hyperlipemia, mixed Incontinence Nonhealing surgical wound Nonrheumatic aortic valve stenosis Nonrheumatic mitral valve insufficiency DARRIUS (obstructive sleep apnea) Osteoporosis Peripheral vascular disease Postlaminectomy syndrome Renal artery stenosis Wound dehiscence, surgical Wound, open, back Home Medications alendronate 70 mg PO PATINO 02/28/15 [History Last Taken 06/07/19] multivitamin,bn-sgqo-jnhjhdot 1 tab PO DAILY 02/28/15 [History Last Taken 06/08/19] biotin 10,000 mcg capsule 10,000 mcg PO TID cap 11/06/17 [History Last Taken 06/08/19] aspirin 81 mg tablet,delayed release 81 mg PO DAILY 08/13/18 [History Last Taken 06/08/19] clonidine HCl 0.3 mg tablet 0.3 mg PO TID tab 08/13/18 [History Last Taken 06/08/19] docusate sodium 100 mg tablet 100 mg PO DAILY 08/13/18 [History Last Taken 06/08/19] glucosamine 500 gx-icvzthtlq-hwunqrab comp 400 mg-D3 667 unit-C-Mn cap 1 cap PO BID cap 08/13/18 [History Last Taken 06/08/19] hydralazine 100 mg tablet 100 mg PO Q6H tab 08/13/18 [History Last Taken 06/08/19] labetalol 200 mg tablet 300 mg PO TID tab 08/13/18 [History Last Taken 06/08/19] omega-3 fatty acids 1,000 mg capsule 2,000 mg PO TID 08/13/18 [History Last Taken 06/08/19] lisinopril 10 mg tablet 10 mg PO DAILY@1200 12/01/18 [History Last Taken 06/07/19] cyanocobalamin (vitamin B-12) 5,000 mcg PO DAILY 06/08/19 [History Last Taken 06/08/19] omeprazole 20 mg PO DAILY@1200 06/08/19 [History Last Taken 06/07/19] lorazepam 0.5 mg PO QHS PRN 5 Days #5 tab 06/12/19 [Rx Last Taken Unknown] acetaminophen 650 mg PO Q6H PRN PRN 03/29/20 [History Last Taken Unknown] tramadol 50 mg PO Q6H PRN PRN 03/29/20 [History Last Taken Unknown] ascorbate calcium (vitamin C) 500 mg tablet 500 mg PO DAILY 06/19/21 [History Last Taken Unknown] cholecalciferol (vitamin D3) 50 mcg (2,000 unit) capsule 50 mcg PO DAILY 06/19/21 [History Last Taken Unknown] estradiol 1 g VAGINAL 2XW 06/19/21 [History Last Taken Unknown] furosemide 20 mg tablet 20 mg PO BID PRN 06/19/21 [History Last Taken Unknown] methylcellulose (with sugar) oral powder 850 g PO BID 06/19/21 [History Last Taken Unknown] zinc 50 mg tablet 50 mg PO DAILY 06/19/21 [History Last Taken Unknown] amlodipine 10 mg tablet See Rx Instructions .ROUTE .COMPLEX #90 tablet 09/14/21 [Rx Last Taken Unknown] oxycodone 5 mg PO 12/25/21 [History Last Taken Unknown] Allergy/AdvReac Type Severity Reaction Status Date / Time bisoprolol Allergy bleeding Verified 12/25/21 18:25 levofloxacin [From Levaquin] Allergy anxiety Verified 12/25/21 18:25 meloxicam Allergy bleeding Verified 12/25/21 18:25 Sulfa (Sulfonamide Allergy hives Verified 12/25/21 18:25 Antibiotics) CODEINE COUGH SYRUP AdvReac Other Uncoded 12/25/21 18:25 Family History Mother CAD (coronary artery disease) <65 Daughter Breast cancer Sister Breast cancer Father , at age 53 Brain aneurysm Surgical History History of bunionectomy of right great toe History of carpal tunnel release History of left hip replacement History of left knee replacement History of partial hysterectomy Previous back surgery S/P lumbar fusion Status post right knee replacement Social History Smoking Status: Former smoker alcohol intake: current alcohol intake frequency: a few times a month substance use type: does not use caffeine: Yes Type: coffee Number of servings: 1 what type of physical activity do you participate in: walking and weight training frequency: 3-4 times per week duration: 60-90 minutes/day seatbelt use: always do you feel safe at home: Yes additional social history: -Matthew CRISTAL BEE ED Constitutional Constitutional ED: Reports as per HPI, chills, fever(s) and malaise Eyes Eyes: Denies change in vision or diplopia ENT ENT ED: Denies rhinorrhea or sore throat Cardiovascular Cardiovascular: Denies chest pain or palpitations Respiratory/Chest Respiratory/Chest: Denies cough or dyspnea Gastrointestinal Gastrointestinal: Denies abdominal pain, diarrhea, nausea or vomiting Genitourinary Genitourinary ED: Denies dysuria or hematuria Musculoskeletal Musculoskeletal: Reports extremity pain; Denies neck pain Integumentary Denies Abrasions, rash or wounds Neurologic Neurologic: Denies paresthesias or weakness Psychiatric Psychiatric: Denies anxiety or suicidal thoughts EXAM Physical Exam Const Vital Signs: 12/25/21 18:28 12/25/21 19:33 Temperature 99.6 F H Temperature Source Oral Pulse Rate 82 Respiratory Rate 18 14 Blood Pressure 146/62 H Blood Pressure Mean 90 Pulse Ox 93 Oxygen Delivery Method Room Air Positive well nourished and well developed General Appearance ED: well developed and NAD HEENT Reports moist mucous membranes normocephalic and atraumatic Eyes PERRL and EOMs intact bilaterally Neck full ROM and supple Resp normal respiratory effort and clear to auscultation bilaterally Cardio regular rate, regular rhythm and no murmurs GI non-tender and non-distended Auscultation: normoactive bowel sounds Palpation: soft Back/Spine normal ROM and normal to inspection General Back: other FROM Extremity normal to inspection Extremity Narrative: Left shoulder: Very limited range of motion in all directions due to pain, even very little movement causes discomfort. Shoulder is warm but not excessively so. No overlying erythema. Most of the tenderness is subacromial. She also has anterior tenderness, less over the acromion and clavicle and AC joint. Neurovascularly intact distally. General Extremety ED: Yes tenderness; Negative for edema or pulses abnormal General Extremity: Negative for edema or pulses abnormal Neuro oriented x3, no focal motor deficits and no sensory deficits noted Sensorium / Orientation: alert Motor Exam: strength 5/5 throughout Psych mental status grossly normal and thought process normal Skin no wounds Rashes: no rashes MDM MDM MDM Narrative Medical decision making narrative: As I discussed with this patient, I would advise ruling out septic arthritis given the context and no obvious etiology of the discomfort. This involves an arthrocentesis of the left shoulder which we discussed would be from a subacromial approach. Discussed all the risks and benefits with her she was amenable to it and consented. No fluid was able to be obtained, and 2 view x-ray of the left shoulder my interpretation shows nothing acute, with a narrow joint space and nothing distended, both of which are inconsistent with an acute septic arthritis. She was given morphine for pain which helped temporarily. The rest of her work-up was noted, she does not have a leukocytosis, her CRP is a little elevated, however with an ESR of 10 within normal limits, this is 98% sensitive ruling out acute septic arthritis, and given this and comfortable sending the patient home, she already has oxycodone to use at home, supportive care advised and follow-up with orthopedics, I also did a urinalysis and a 1 view chest x-ray which on my interpretation is negative for any acute infiltrates/abnormality, radiology in agreement, looking for reasons for her fever that she had earlier. They were both normal. I was going to place the patient on 1 week of meloxicam to see if that also would help her left shoulder pain, however it is on her allergy list. Lab Data Attestation: I reviewed the patient's lab results. Rhythm Strip Rhythm Strip: Sinus Rhythm Rate: 70 Ectopy: None EKG Initial EKG: Attestation: I personally reviewed and interpreted this EKG as follows: Interpretation: Sinus Rhythm and No Acute Injury Pattern Comments: Normal EKG Procedures Other Procedures Procedure(s): Left shoulder arthrocentesis: After informed consent from the patient, sterile freezing spray was used at the surface at the posterior aspect of the subacromial area, after Betadine prep. A inserted a 1 inch 21-gauge needle in several different directions including hitting bone, there was no fluid to be aspirated. Tolerated well no complications. Discharge Plan Triage Chief Complaint: Upper Extremity Injury ED Provider: Yusuf Beavers Dx/Rx/DC Orders Clinical Impression: Acute pain of left shoulder, Fever Instructions: ED Shoulder Pain, Uncertain Cause Prescriptions: No Action biotin 10,000 mcg capsule 10,000 mcg PO TID RF: 0 docusate sodium 100 mg tablet 100 mg PO DAILY RF: 0 aspirin [Adult Low Dose Aspirin] 81 mg tablet,delayed release (DR/EC) 81 mg PO DAILY RF: 0 labetalol 200 mg tablet 300 mg PO TID RF: 0 clonidine HCl 0.3 mg tablet 0.3 mg PO TID RF: 0 hydralazine 100 mg tablet 100 mg PO Q6H RF: 0 omega-3 fatty acids [Fish Oil Concentrate] 1,000 mg capsule 2,000 mg PO TID RF: 0 glucosamine 500 zh-mvkmjxukp-xnozhgst comp 400 mg-D3 667 unit-C-Mn cap 500-400-667 mg-mg-unit capsule 1 cap PO BID RF: 0 lisinopril 10 mg tablet 10 mg PO DAILY@1200 RF: 0 furosemide 20 mg tablet 20 mg PO BID PRNRF: 0 estradiol [Estrace] 0.01 % (0.1 mg/gram) cream 1 g vaginal 2XW RF: 0 zinc 50 mg tablet 50 mg PO DAILY RF: 0 cholecalciferol (vitamin D3) 50 mcg (2,000 unit) capsule 50 mcg PO DAILY RF: 0 ascorbate calcium (vitamin C) 500 mg tablet 500 mg PO DAILY RF: 0 alendronate 70 MG tablet 70 mg PO PATINO RF: 0 multivitamin,xr-enns-ovuychfs 1 TABLET tablet 1 tab PO DAILY RF: 0 omeprazole 20 MG capsule,delayed release(DR/EC) 20 mg PO DAILY@1200 RF: 0 cyanocobalamin (vitamin B-12) 5,000 MCG capsule 5,000 mcg PO DAILY RF: 0 lorazepam 0.5 mg tablet 0.5 mg PO QHS PRN (Reason: Anxiety) 5 Days Qty: 5 RF: 0 methylcellulose (with sugar) Powder 850 g PO BID RF: 0 acetaminophen 325 MG tablet 650 mg PO Q6H PRN PRN (Reason: Pain Or Fever) RF: 0 tramadol 50 MG tablet 50 mg PO Q6H PRN PRN (Reason: Pain Or Fever) RF: 0 oxycodone 5 mg tablet 5 mg PO RF: 0 amlodipine 10 mg tablet See Rx Instructions .ROUTE .COMPLEX Qty: 90 RF: 3 Primary Care Provider: Jason Chinchilla Referrals: Federico Guthrie MD [STAFF PHYSICIAN] - 3-5 Days Jason Chinchilla MD [Primary Care Provider] - Disposition Disposition: Home, Self Care
[2021-12-25 20:07] LABS: Absolute Lymphocyte Count 1.47 X10^3/uL (0.83-4.51); Absolute Neutrophil Count 7.6 X10^3/uL (2.0-7.7); Basophil# 0.05 X10^3/uL; Basophil% 0.5 % (0-1); Eosinophil# 0.39 X10^3/uL; Eosinophils% 3.6 % (0-5); Hematocrit 35.2 % (37-47); Hemoglobin 11.6 g/dL (12.0-15.0); Lymphocyte # 1.47 X10^3/ul (0.83-4.51); Lymphocyte % 13.5 % (19-41); Mean Corpuscular Hgb 30.8 pg (27.0-32.0); Mean Corpuscular Volume 93.4 fL (81-99); Mean Platelet Vol. 8.5 fl (6.2-12.0); Monocyte# 1.32 X10^3/uL; Monocyte% 12.2 % (0-10); NRBC Flagged by Analyzer 0 % (0-5); Neutrophil # 7.55 X10^3/uL (2.7-7.7); Neutrophil % 69.5 % (47-70); Platelet Count 297 K/mm3 (150-450); RBC Distribution Width CV 14.2 % (11.6-14.6); RBC Distribution Width SD 48.7 fl (35.1-43.9); Red Blood Count 3.77 M/mm3 (4.2-5.4); White Blood Count 10.9 K/mm3 (4.4-11.0)
[2021-12-25 20:22] LABS: International Normalized Ratio 0.9; Prothrombin Time (Protime)PT. 11.6 SECONDS (11.7-14.9)
[2021-12-25 20:30] LABS: ALB/GLOB Ratio 0.7 RATIO (0.9-2.4); AST(SGOT) 20 U/L (15-37); Alanine Aminotransfer ALT/SGPT 32 U/L (13-56); Albumin, Serum 2.9 g/dL (3.2-5.0); Alkaline Phosphatase 71 U/L (45-117); Anion Gap 6 (5-15); BUN 27 mg/dL (7-18); BUN/Creat Ratio 20.3 RATIO (10-20); Calcium,Total 8.9 mg/dL (8.5-10.1); Chloride 110 mmol/L (98-107); Creatinine, Serum 1.33 mg/dL (0.55-1.02); EST Glomerular Filtration Rate 40 mL/min (>60); Est Glom Filt Rate - Afr Amer 49 mL/min (>60); Estimated Creatinine Clearance 26.51 ml/min; Globulin 4.3 g/dL (2.2-4.2); Glucose 101 mg/dL (74-106); Potassium 3.7 mmol/L (3.5-5.1); Protein, Total 7.2 g/dL (6.4-8.2); Sodium Level 140 mmol/L (136-145)
[2021-12-25 20:43] LABS: Lactic Acid 0.8 mmol/L (0.4-1.9)
--- NOTE | 2021-12-25 21:15 | RAD_ITS ---
STUDY: XR Shoulder Min 2 Views REASON FOR EXAM: Female, 81 years old. pain TECHNIQUE: XR Shoulder Min 2 Views LEFT COMPARISON: None. FINDINGS: There is severe degenerative arthrosis of the glenohumeral articulation. There is degenerative arthrosis of the acromioclavicular joint without inferior osseous spur formation. Normal acromion. Normal humeral head and visualized proximal humerus. The soft tissue structures are unremarkable. Normal visualized pulmonary apex. RAD/Shoulder min 2 Views IMPRESSION: There are no acute findings of the shoulder. Electronically Signed: Mejia Hayes MD at 21:47 EDT ,
--- NOTE | 2021-12-25 21:15 | RAD_ITS ---
STUDY: X-RAY CHEST REASON FOR EXAM: Female, 81 years old. fever TECHNIQUE: XR Chest 1 View COMPARISON: 5.24. FINDINGS: Thoracic stent graft. Thoracolumbar spinal fixation hardware. Normal size heart. Normal mediastinum and jonas. Normal visualized pulmonary arteries. There is atherosclerotic calcification of the aortic arch with tortuosity. There are diffuse degenerative changes of the visualized thoracic spine. There is degenerative osteoarthritis of the bilateral shoulders. There is no demonstrated abnormality of the visualized soft tissue structures of the upper abdomen. RAD/Chest 1 View (Portable) IMPRESSION: There are no acute findings. Electronically Signed: Mejia Hayes MD at 21:49 EDT ,
[2021-12-25 21:53] LABS: Erythrocyte Sedimentation Rate 20 mm/hr (0-30)
[2021-12-25] MEDS: Morphine 2 MG/ML Syringe IV ×2 (22:01→23:03)
[2021-12-25 22:36] LABS: Mucous, Urine 0 SEEN /hpf (<or=2+); Red Blood Cells-Urine 0 SEEN /hpf (0-5)
[2021-12-25 22:45] LABS: Color, Urine Yellow (Yellow); Glucose, Dipstick Normal (Normal); Ketone-Dipstick Negative (Negative); Leukocyte Esterase-Dipstick 25 /ul (Negative); Nitrite-Dipstick Negative (Negative); Occult Blood-Urine Negative /ul (Negative); Protein-Dipstick 15 mg/dl (Negative); Urine Bilirubin Dipstick Negative (Negative); Urine Clarity Clear (Clear); Urine Urobilinogen Normal (Normal)
[2021-12-25 23:06] LABS: Bacteria RARE /hpf (None Seen); Squamous Epithelial Cells - UA 0-5 SEEN /hpf (5-10); White Blood Cells 0-5 SEEN /hpf (0-5); Yeast-Urine RARE /hpf (None Seen)
== END 2021-12-25 23:51 | disposition home or self-care (01) ==
PROVIDERS: Emergency Provider Emergency Medicine; PCP Family Medicine; Visit Provider Emergency Medicine
DX: M25.512 Pain in left shoulder (principal); R50.9 Fever, unspecified; I10 Essential (primary) hypertension; G47.33 Obstructive sleep apnea (adult) (pediatric); Z87.891 Personal history of nicotine dependence; Z79.899 Other long term (current) drug therapy; Z86.718 Personal history of other venous thrombosis and embolism
CPT/HCPCS: 71045; 73030; 80053; 81001; 83605; 85025; 85610; 85652; 86140; 87040; 93005; 96374; 96376; 99284; A4216

== ENCOUNTER → 2022-01-11 | Outpatient (CLI) | payer MEDICARE, SELFPAY ==
--- NOTE | 2022-01-11 08:05 | ASPS_PTH ---
PATIENT: DANAE KYLE LOC: [facility] U#:[id number] AGE/SX: 81/F ROOM: RE01/11/[address]: Dr. Jung Pineda MD : [id number] BED: DIS: 01/11/2022 SPEC #: [id number] RECD: 01/11/22 11:21 STATUS: ESSIE SHULTZHever #: [id number] ALLISON: 01/11/22 08:[address]: Jung Pineda DEPT: CYTOLOGY RECD BY: María Puente ENTERED: 01/11/22 12:06 SP TYPE: ASPIRATION OTHR DR: Dr. Jason Chinchilla MD Tissues: A - Thyroid gland, NOS B - Thyroid gland, NOS Procedures: Special Stain Group II Cytology Other HEADER OPERATION: Bilateral thyroid fine needle aspiration PRE-OP DIAGNOSIS: Bilateral thyroid nodules TISSUE SUBMITTED: A ? Right thyroid x6 slides, B ? Left thyroid x6 slides DIAGNOSIS CYTOLOGY A. Right thyroid nodule, fine needle aspiration (smears): Consistent with benign follicular/colloid nodule with focal cystic changes (Tipton category II). Adequate for evaluation. B. Left thyroid nodule, fine needle aspiration (smears): Consistent with benign follicular/colloid nodule with focal cystic changes (Tipton category II). Adequate for evaluation. CHRISTOPHER:teri 01/12/2022 COMMENT Correlation with clinical, radiologic findings and appropriate follow up are necessary. CYTOLOGY STUDY Slides are reviewed. CYTOLOGY GROSS A - Received are six smears labeled with the patient's name and designated per the requisition as right thyroid. Submitted for staining. B - Received are six smears labeled with the patient's name and designated per the requisition as left thyroid. Submitted for staining. / teri 01/11/2022 TC:5 CPT: 53880 x2
== END | disposition home or self-care (01) ==
LOC: LABSPEC 11:33
PROVIDERS: PCP Family Medicine; Visit Provider Surgery
DX: E04.2 Nontoxic multinodular goiter (principal)
CPT/HCPCS: 88161; 88313

== ENCOUNTER 2022-06-20 14:00 | Outpatient (RCR) | payer MEDICARE, SELFPAY ==
--- NOTE | 2022-05-14 11:41 | HP.PTEVAL ---
Patient's Visit Information DANAE KYLE is a 82 year old F referred to Physical Therapy by PARAG DAVIES with a diagnosis of Chronic Low back pain. Date of Evaluation: 05/14/22 Physical Therapist: Newton Fong, DPT, OCS, CSCS - Visit Plan Frequency: 2-3x /Week Duration: 4-6 Weeks Plan: 3x/we3ek for 4-6 for. 1. NS LB posture and strengthening core and LE, rollout and stretch B quads. 2. stretch LB flexion, MH, TENs , Lossings traction. 3. General strength to tolerance with NS position. - Subjective Back for LBP. Therapy interrupted in November due to toe infection, Same pain she was here for 5 months ago. Pain is up to 7/10 in LB, worse with stand and walk, dishes laundry. Wh walker cuts down on pain and uses it for balance as well as pain. Pain is in mid back undeer shoulder blades, no arm or leg synmptoms. L shoulder also hurts as it is bone on bone and it needs an injection. She will call on that today. Sleep is great. With hemp gummy. Spends day cleaning up around house, cooking breakfast. Takes care of puppy and feeds him. Reads and does craft sitting. No exercises at home except for her shoulder. Live with and he is home most of time. Basic ADLs are getting done on her own. Pain is 0/10 sitting or lying. Has railing at home and does steps. - Pain back Pain Intensity (Out of 10): 0 Pain Intensity Range: 0, 8 - Objective Walks with a wh walker I today. Trasnfers I bed and chair. Walks short distances without walker safely but more painful. LB AROM extension painful and max limited, flexion mod limited, max limited SB. reflexes 1/3 patella and achilles. Quads mod tight. Sensation feet is diminished to gross light touch but good from ankles up. Strength LE 4-/5 without myotomal abnormalities. Tender to PA pressure [id number]. Soft tissue is not bad. - SLR, - SLump - Balance/Special Test Scores Oswestry Low Back Score: 13 - Goals Goal 1:: Pt I in management of condition with ex to limit pain Goal Time Frame: 4-6 Weeks Goal 2:: Pain 0-3/10 with dishes and ambulation 50 feet Goal Time Frame: 4-6 Weeks Goal 3:: Pt feel 50% better over all in activity and back pain Goal Time Frame: 4-6 Weeks Goal 4:: Oswestry score 8 or better. Goal Time Frame: 4-6 Weeks - Rehabilitation Potential Physical Therapy Diagnosis: Likely stenosis in nature with pain limiting WB funciton Rehabilitation Potential: Fair - Anticipated Interventions Patient/Client Instruction: Educate patient on: Condition, Plan of Care For the Purpose of:: To decrease pain, To increase ROM, To improve muscle performance and motor function, To increase tolerance to activity/condition/position, To improve ability of physical actions for home/community/work/leisure, To improve gait and locomotor functions Therapeutic Exercise to Include: Strength training, Postural training, Flexibilty training, Dynamic Lumbar Stabilization For the Purpose of:: To decrease pain, To increase ROM, To improve muscle performance and motor function, To increase tolerance to activity/condition/position, To improve ability of physical actions for home/community/work/leisure, To improve gait and locomotor functions Manual Therapy Techniques to Include: Mobilization, Soft tissue mobilization For the Purpose of:: To decrease pain, To increase ROM, To improve muscle performance and motor function TENS: Yes Thermo therapy (hot pack): Yes Pelvic traction supine: Yes For the Purpose of:: To increase ROM, To improve muscle performance and motor function Thank you for the opportunity to evaluate your patient. For Medicare and Medicare HMO plans, please review the plan of care and approve it. It will need to be FAXED BACK to us at [phone] for Medicare purposes. For Medicare only, by signing this I certify the plan of care. Please let me know if there are questions or concerns regarding this plan of care. Physician Signature: Date:
--- NOTE | 2022-06-20 14:30 | HP.PTREVAL_ITS ---
PARAG DAVIES, It has been my pleasure to treat DANAE KYLE over the last 13 visits for Chronic Low back pain. Please see the progress note below for an update on the physical therapy plan of care! Subjective: Doing well and much improved back pain but legs still feel stiff and thinks she needs more therapy. Side press ex hurt her shoulder and back last time. Back 50% better and still gets some pain with activities. Sitting is OK and walking with walker is not bad. HEP: doing regularly and stretches legs, NS exercises. No f/u with doctor scheduled. sleeping is not an issue. 2/3/4 toes on L foot are painful when standing too long. Using walker much of time later in day, mornings are a little better in am. Wants to work on gym p [place]. Objective/Function: LB AROM ext mod limited and pianful centrally, flexion and SB are full and without pain but still stiff especially in legs. Walking mod I with wh walker today and trasnfers I. Goals still appropriate and fair prognosis to I workout in gym Plan Plan: 2x/week x 2-4 weeks to work toward I gym program for core, LE adn postural strength with NS position. Balance/Gait/Functional tests - Balance/Special Test Scores Oswestry Low Back Score: 9 Goals Goal 1:: Pt I in management of condition with ex to limit pain Goal Time Frame: 4-6 Weeks Goal Progress: Progressing Goal 2:: Pain 0-3/10 with dishes and ambulation 50 feet Goal Time Frame: 4-6 Weeks Goal Progress: Progressing Goal 3:: Pt feel 50% better over all in activity and back pain Goal Time Frame: 4-6 Weeks Goal Progress: Goal Met Goal 4:: Oswestry score 8 or better. Goal Time Frame: 4-6 Weeks Goal Progress: Progressing Goal 5:: Pt compliant with daily workout at home and to I workout in gym for strengthening. Goal Time Frame: 2-4 Weeks Goal Progress: NEW GOAL Anticipated Interventions Patient/Client Instruction: Educate patient on: Condition, Plan of Care For the Purpose of:: To decrease pain, To increase ROM, To improve muscle performance and motor function, To increase tolerance to activity/condition/position, To improve ability of physical actions for home/community/work/leisure, To improve gait and locomotor functions Therapeutic Exercise to Include: Strength training, Postural training, Flexibilty training, Dynamic Lumbar Stabilization For the Purpose of:: To decrease pain, To increase ROM, To improve muscle performance and motor function, To increase tolerance to activity/condition/position, To improve ability of physical actions for home/community/work/leisure, To improve gait and locomotor functions Manual Therapy Techniques to Include: Mobilization, Soft tissue mobilization For the Purpose of:: To decrease pain, To increase ROM, To improve muscle performance and motor function TENS: Yes Thermo therapy (hot pack): Yes Pelvic traction supine: Yes For the Purpose of:: To increase ROM, To improve muscle performance and motor function Please do not hesitate to contact me at [phone] by phone or if you have questions or concerns regarding this new plan of care! Sincerely, Newton Fong, DPT, OCS, CSCS
--- NOTE | 2022-09-24 08:42 | HP.PT.NRP ---
DANAE KYLE was seen in my office for initial evaluation on 05/14/22. The following Plan of Care was established for this patient: Initial Frequency: 2-3x /Week Initial Duration: 4-6 Weeks Patient/Client Instruction: Educate patient on: Condition, Plan of Care For the Purpose of:: To decrease pain, To increase ROM, To improve muscle performance and motor function, To increase tolerance to activity/condition/position, To improve ability of physical actions for home/community/work/leisure, To improve gait and locomotor functions Therapeutic Exercise to Include: Strength training, Postural training, Flexibilty training, Dynamic Lumbar Stabilization For the Purpose of:: To decrease pain, To increase ROM, To improve muscle performance and motor function, To increase tolerance to activity/condition/position, To improve ability of physical actions for home/community/work/leisure, To improve gait and locomotor functions Manual Therapy Techniques to Include: Mobilization, Soft tissue mobilization For the Purpose of:: To decrease pain, To increase ROM, To improve muscle performance and motor function TENS: Yes Thermo therapy (hot pack): Yes Pelvic traction supine: Yes For the Purpose of:: To increase ROM, To improve muscle performance and motor function This patient was last seen in our office 06/20/22. Pertinent comments regarding their Physical therapy will appear below: Pt seen 13 visits and was 50% better. She did not attend any further visits but has been sent back and is currently being treated with a new chart. I will disocnitnue this chart at this time. At this point I will be discontinuing this patient from physical therapy. I would be happy to see this patient again in the future if found appropriate by the physician. Thank you! Newton Fong, DPT, OCS, CSCS Balance/Gait/Functional tests - Balance/Special Test Scores Oswestry Low Back Score: 9
== END 2022-06-20 19:00 | disposition home or self-care (01) ==
LOC: PT 14:00
PROVIDERS: PCP Family Medicine
DX: M54.50 Low back pain, unspecified (principal); G89.29 Other chronic pain
CPT/HCPCS: 97110; 97162; 97164

== ENCOUNTER 2022-07-24 12:05 | Inpatient (IN) | payer MEDICARE, SELFPAY ==
[2022-07-24] VITALS (21 sets, daily range): BP systolic 129–177; BP diastolic 64–113; PULSE 71–91; RESP 12–33; TEMP 36.4–37.9; O2SAT 21–98; BMI 28.6; BMI 23.8
--- NOTE | 2022-07-24 12:36 | ED.VIS.DYS ---
HPI History of Present Illness Chief Complaint: Shortness of Breath Detail of Chief Complaint: Cough and URI symptoms for 4 days. Informant: patient and spouse/S.O. Onset/Context/Timing Onset: Days Context: gradual Timing: Continuous Current Severity: Moderate Maximum Severity: Moderate Worsened by: Coughing Associated Symptoms cough, fever and chills Chest Pain: Positive for None Narrative Narrative: 82-year-old female history of aortic dissection for which she needed a stent also renal stents. Mild COPD and prior history of DVT years ago after surgery. She is not on any home oxygen she uses BiPAP at night for sleep apnea. Both her and her have had recent URI symptoms. They were COVID-negative at home. He had an ER visit was discharged home. She has now had symptoms last 4 days. And has become short of breath. Fevers in the low 100s. Nausea and vomiting today. No diarrhea or dysuria. Nonproductive cough. No chest pain or hemoptysis. No leg pain or swelling. 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) Essential (primary) hypertension GERD (gastroesophageal reflux disease) History of deep venous thrombosis (DVT) of distal vein of right lower extremity History of stent insertion of renal artery (~07/30/18) History of stent insertion of renal artery Hyperlipemia, mixed Incontinence Multinodular goiter (nontoxic) Nonhealing surgical wound Nonrheumatic aortic valve stenosis Nonrheumatic mitral valve insufficiency DARRIUS (obstructive sleep apnea) Osteoporosis Peripheral vascular disease Postlaminectomy syndrome Renal artery stenosis Wound dehiscence, surgical Wound, open, back Home Medications biotin 10,000 mcg capsule 10,000 mcg PO TID SUPPLEMENT 11/06/17 [History Last Taken 07/23/22] aspirin 81 mg tablet,delayed release (Adult Low Dose Aspirin) 81 mg PO DAILY HEART HEALTH 08/13/18 [History Last Taken 07/23/22] clonidine HCl 0.3 mg tablet 0.3 mg PO TID BLOOD PRESSURE 08/13/18 [History Last Taken 07/23/22] docusate sodium 100 mg tablet 100 mg PO 4X/DAY Constipation 08/13/18 [History Last Taken 07/23/22] hydralazine 100 mg tablet 100 mg PO Q6H BLOOD PRESSURE 08/13/18 [History Last Taken 07/24/22] labetalol 200 mg tablet 300 mg PO TID BLOOD PRESSURE 08/13/18 [History Last Taken 07/23/22] lisinopril 10 mg tablet 10 mg PO DAILY blood pressure 12/01/18 [History Last Taken 07/23/22] cyanocobalamin (vitamin B-12) 5,000 mcg capsule 5,000 mcg PO DAILY supplement 06/08/19 [History Last Taken 07/23/22] omeprazole 20 mg capsule,delayed release 20 mg PO DAILY acid reflux 06/08/19 [History Last Taken 07/23/22] lorazepam 0.5 mg tablet 0.5 mg PO QHS PRN Anxiety 5 days #5 tabs 06/12/19 [Rx Last Taken Unknown] ascorbate calcium (vitamin C) 500 mg tablet 500 mg PO DAILY SUPPLEMENT 06/19/21 [History Last Taken 07/23/22] cholecalciferol (vitamin D3) 50 mcg (2,000 unit) capsule 50 mcg PO DAILY SUPPLEMENT 06/19/21 [History Last Taken 07/23/22] estradiol 0.01% (0.1 mg/gram) vaginal cream (Estrace) 1 g vaginal SUWE 06/19/21 [History Last Taken 07/15/22] methylcellulose (with sugar) oral powder 850 g PO BID constipation 06/19/21 [History Last Taken 07/23/22] zinc 50 mg tablet 50 mg PO DAILY SUPPLEMENT 06/19/21 [History Last Taken 07/23/22] oxycodone 5 mg tablet 5 mg PO QHS PAIN 12/25/21 [History Last Taken 07/23/22] alendronate 70 mg tablet 70 mg PO PATINO BONES 12/29/21 [History Last Taken 07/22/22] Glucosamine Chondroitin 1 tab PO/SL BID supplement 07/24/22 [History Last Taken 07/24/22] acetaminophen 650 mg tablet,extended release 650 mg PO Q8H PRN Pain 07/24/22 [History Last Taken Unknown] amlodipine 10 mg tablet 10 mg PO DAILY BLOOD PRESSURE 07/24/22 [History Last Taken 07/23/22] multivitamin 1 tab PO DAILY HEALTH MAINTENANCE 07/24/22 [History Last Taken 07/24/22] omega-3 fatty acids 1,000 mg capsule 5,000 mg PO DAILY SUPPLEMENT 07/24/22 [History Last Taken 07/23/22] turmeric root extract 500 mg tablet 500 mg PO DAILY SUPPLEMENT 07/24/22 [History Last Taken 07/24/22] vibegron 75 mg tablet (Gemtesa) 75 mg PO DAILY 07/24/22 [History Last Taken 07/23/22] Allergy/AdvReac Type Severity Reaction Status Date / Time bisoprolol Allergy bleeding Verified 07/24/22 12:06 levofloxacin [From Levaquin] Allergy anxiety Verified 07/24/22 12:06 meloxicam Allergy bleeding Verified 07/24/22 12:06 Sulfa (Sulfonamide Allergy hives Verified 07/24/22 12:06 Antibiotics) codeine AdvReac Other Verified 07/24/22 12:06 Family History Mother CAD (coronary artery disease) <65 Daughter Breast cancer Sister Breast cancer Father , at age 53 Brain aneurysm Heart disease Daughter Cancer Thyroid Cancer Surgical History History of bunionectomy of right great toe History of carpal tunnel release History of cataract surgery History of left hip replacement History of left knee replacement History of open reduction and internal fixation (ORIF) procedure History of partial hysterectomy Previous back surgery S/P lumbar fusion S/P thyroid biopsy (~12/2021) Status post right knee replacement Social History Smoking Status: Former smoker alcohol intake: current alcohol intake frequency: a few times a month substance use type: does not use caffeine: Yes Type: coffee Number of servings: 1 what type of physical activity do you participate in: walking and weight training frequency: 3-4 times per week duration: 60-90 minutes/day seatbelt use: always do you feel safe at home: Yes additional social history: -Matthew BEE ROS ED ROS Narrative Cough. Fever. Chills. Shortness of breath. Review of Systems ROS Unobtainable: Denies due to encephalopathy Constitutional Constitutional ED: Reports chills and fever(s) Eyes Eyes: Denies blurry vision Cardiovascular Cardiovascular: Denies chest pain Respiratory/Chest Respiratory/Chest: Reports cough and dyspnea Gastrointestinal Gastrointestinal: Reports nausea and vomiting; Denies abdominal pain, constipation, diarrhea or melena Genitourinary Genitourinary ED: Denies dysuria or hematuria Musculoskeletal Musculoskeletal: Denies arthralgias Integumentary Denies abscess Neurologic Neurologic: Denies headache(s) Psychiatric Psychiatric: Denies anxiety Endocrine Endocrinology: Denies cold intolerance Hematologic/Lymphatic Hematologic/Lymphatic: Denies easy bleeding Allergic/Immunologic Allergic/Immunologic ED: Denies mouth swelling or tongue swelling EXAM Physical Exam Narrative Exam Narrative: 82-year-old female blood pressure 177 113. Pulse of 91. Her pulse ox on room air is only 83% on 4 L is 90%. She is obviously hypoxic on room air and even on oxygen. H EENT exam unremarkable. Neck nontender. No JVD. Lungs coarse breath sounds bilaterally. Expiratory wheezes bilaterally. No rales or rhonchi. Heart regular rhythm rate about 90. No murmur. Abdomen soft nontender. Normal bowel sounds no peritoneal signs. Moving all 4 extremities. Calves nontender without edema or cords. Neurologically she is awake and alert with no focal motor deficits. Answering questions following commands. Clinically patient looks like she has a viral syndrome possibly influenza or COVID versus pneumonia. Const Vital Signs: 07/24/22 12:06 07/24/22 12:10 07/24/22 12:13 Temperature 99.2 F H Temperature Source Temporal Pulse Rate 91 87 Respiratory Rate 16 24 H Respiratory Effort Respiratory Pattern Blood Pressure 177/113 H Blood Pressure Mean 134 Pulse Ox 83 90 Oxygen Delivery Method Room Air Nasal Cannula Oxygen Flow Rate (L/min) 4 07/24/22 12:17 07/24/22 12:45 07/24/22 12:57 Temperature Temperature Source Pulse Rate 77 74 Respiratory Rate 24 H 21 H Respiratory Effort Short of Breath Respiratory Pattern Tachypnea Blood Pressure 135/83 H Blood Pressure Mean 100 Pulse Ox 89 Oxygen Delivery Method Nasal Cannula Oxygen Flow Rate (L/min) 5 07/24/22 13:33 07/24/22 15:00 Temperature 97.6 F L Temperature Source Temporal Pulse Rate 79 83 Respiratory Rate 18 28 H Respiratory Effort Respiratory Pattern Blood Pressure 162/92 H 151/69 H Blood Pressure Mean 115 96 Pulse Ox 94 84 Oxygen Delivery Method Nasal Cannula Nasal Cannula Oxygen Flow Rate (L/min) 6 6 Positive well nourished and well developed; Negative for obese, cachectic, contractures or unkempt General Appearance ED: well developed and NAD; Negative for unkempt, cachectic, contractures or pallor Nutritional Appearance: Negative for cachectic or obese HEENT Reports moist mucous membranes Negative for atraumatic, trauma or tenderness Eyes PERRL and EOMs intact bilaterally General Eye ED: Negative for pale conjunctiva or scleral icterus Neck no lymphadenopathy, supple, no meningeal signs and no JVD General: Negative for tenderness Lymph Lymphatic: Negative for other Chest Wall Chest: Negative for other Resp normal respiratory effort and No clear to auscultation bilaterally Auscultation: wheezes; Negative for rales or rhonchi Cardio regular rate, regular rhythm, S1 normal heart sound, S2 normal heart sound and no murmurs Rate: Negative for bradycardia or tachycardic Rhythm: Negative for abnormal rhythm GI non-tender, non-distended and no masses Inspection: Negative for other Auscultation: normoactive bowel sounds Palpation: soft; Negative for tender or guarding Back/Spine no CVA tenderness and normal to inspection General Back: Negative for CVA tenderness Extremity normal to inspection General Extremety ED: Negative for edema or tenderness General Extremity: Negative for edema Neuro oriented x3 and CN's II-XII intact bilaterally Sensorium / Orientation: alert, oriented to person, oriented to place and oriented to time; Negative for orientation impaired, confused, lethargic or stuporous Speech: speech normal Motor Exam: strength 5/5 throughout Psych Appearance: Negative for unkempt Attitude: No agitated Mood & Affect: Negative for depressed or anxious Thought Process: normal thought process Skin no wounds General Skin Exam: Negative for jaundice or pallor Lesions: no lesions Rashes: no rashes Trauma: Negative for abrasion or laceration MDM MDM MDM Narrative Medical decision making narrative: 82-year-old female URI symptoms differential include pneumonia, COVID, influenza versus other viral syndromes. Rule out cardiac etiology which clinically I do not think that is the case. She has had fever, chills and a cough. Chest x-ray and labs are being obtained along with a COVID and influenza swab. She is wheezing she will be treated with IV Solu-Medrol DuoNeb and albuterol aerosols. Patient is hypoxic and may need to be admitted. She is also being treated with IV fluids because she had nausea and vomiting today. Repeat exam at 230 patient doing well. Improved post aerosol and steroids. I went over all test results of both her and her . Given her age, her leukocytosis, and her hypoxia with her diagnosis of right upper lobe pneumonia I think she needs to be admitted. She will be treated with IV Rocephin and Zithromax. Hospitalist is on page. Lab Data Attestation: I reviewed the patient's lab results. Lab results narrative: CBC shows a white count of 25,000. H&H 13 and 41. Platelets 339. 85% neutrophils. Electrolytes show a gap of 18. BUN 31 creatinine 1.69. Glucose 105. Lactic acid is normal 1.4. Chest x-ray shows a right upper lobe pneumonia. Rapid COVID-negative. Influenza swab negative. Labs: Laboratory Results - last 24 hr 07/24/22 07/24/22 07/24/22 12:45 12:45 12:50 WBC 25.6 H RBC 4.26 Hgb 13.2 Hct 41.1 MCV 96.5 MCH 31.0 MCHC 32.1 RDW Std Deviation 51.5 H RDW Coeff of Tom 14.6 Plt Count 339 MPV 9.1 Immature Gran % (Auto) 2.600 H Neut % (Auto) 85.0 H Lymph % (Auto) 5.2 L [place] % (Auto) 6.4 Eos % (Auto) 0.5 Baso % (Auto) 0.3 Absolute Neuts (auto) 21.7 H Absolute Lymphs (auto) 1.34 Nucleated RBC % 0 Differential Comment SCANNED Diff Path Review May foll Sodium 136 Potassium 3.8 Chloride 105 Carbon Dioxide 23.0 Anion Gap 8 BUN 31 H Creatinine 1.69 H Estim Creat Clear Calc 17.80 Est GFR (MDRD) Af Amer 37 L Est GFR (MDRD) Non-Af 31 L BUN/Creatinine Ratio 18.3 Glucose 105 Lactic Acid 1.4 Calcium 10.0 Radiography Chest X-Ray - ED: 1 View, 2 View, Read by ED Physician, Heart, Mediastinum, Bony Structures, Chronic Changes and Right Infiltrate Diagnostic Testing: Clinical Impression(s) from Imaging Studies Chest X-Ray 07/24/22 13:35 IMPRESSION: New opacity in the right upper lobe suggestive of a pneumonic infiltration. Radiographic follow-up is recommended. Electronically Signed: Selvin Price MD at 14:13 EST , Chest x-ray, portable, single view interpreted by myself the radiologist shows a right upper lobe density consistent with a right upper lobe pneumonia. Prior aortic stenting from her prior detox from the dissection. Rhythm Strip Rhythm Strip: Sinus Rhythm Rate: 83 Ectopy: PVC(s) EKG Initial EKG: Attestation: I personally reviewed and interpreted this EKG as follows: Interpretation: Sinus Rhythm and No Acute Injury Pattern Comments: Normal sinus rhythm rate 83. PVCs. No signs of ST elevation DC Discharge Plan Dx/Rx/DC Orders Clinical Impression: Pneumonia, Hypoxia, Leukocytosis, History of aortic dissection Disposition Disposition: Acute Care Hospital [facility]
[2022-07-24] MEDS: 0.9% Normal Saline 1,000 ML 999 ML IV (12:44)
[2022-07-24] MEDS: MethylPREDNISolone 125 MG/2 ML Vial IV (12:44)
[2022-07-24] MEDS: Ipratropium/Albuterol Sulfate 3 ML AMPUL.NEB INHALATION ×2 (12:55→21:51)
[2022-07-24] MEDS: Albuterol 2.5 MG/3 ML VIAL.NEB. INHALATION (12:55)
[2022-07-24 12:58] LABS: Absolute Lymphocyte Count 1.34 X10^3/uL (0.83-4.51); Absolute Neutrophil Count 21.7 X10^3/uL (2.0-7.7); Basophil# 0.07 X10^3/uL; Basophil% 0.3 % (0-1); Eosinophil# 0.13 X10^3/uL; Eosinophils% 0.5 % (0-5); Hematocrit 41.1 % (37-47); Hemoglobin 13.2 g/dL (12.0-15.0); Lymphocyte # 1.34 X10^3/ul (0.83-4.51); Lymphocyte % 5.2 % (19-41); Mean Corp Hgb Conc 32.1 g/dL (32-36); Mean Corpuscular Volume 96.5 fL (81-99); Mean Platelet Vol. 9.1 fl (6.2-12.0); Monocyte# 1.63 X10^3/uL; Monocyte% 6.4 % (0-10); NRBC Flagged by Analyzer 0 % (0-5); Neutrophil # 21.72 X10^3/uL (2.7-7.7); POSITIVE DIFFERENTIAL YES; Platelet Count 339 K/mm3 (150-450); RBC Distribution Width CV 14.6 % (11.6-14.6); RBC Distribution Width SD 51.5 fl (35.1-43.9); Red Blood Count 4.26 M/mm3 (4.2-5.4); White Blood Count 25.6 K/mm3 (4.4-11.0)
[2022-07-24 13:02] LABS: Differential Indicated SCAN CRITERIA MET
[2022-07-24 13:04] LABS: Anion Gap 8 (5-15); BUN 31 mg/dL (7-18); BUN/Creat Ratio 18.3 RATIO (10-20); Chloride 105 mmol/L (98-107); Creatinine, Serum 1.69 mg/dL (0.55-1.02); EST Glomerular Filtration Rate 31 mL/min (>60); Est Glom Filt Rate - Afr Amer 37 mL/min (>60); Glucose 105 mg/dL (74-106); Potassium 3.8 mmol/L (3.5-5.1); Sodium Level 136 mmol/L (136-145)
[2022-07-24 13:29] LABS: Lactic Acid 1.4 mmol/L (0.4-1.9)
--- NOTE | 2022-07-24 13:35 | RAD_ITS ---
STUDY: X-RAY CHEST REASON FOR EXAM: Female, 82 years old. Hypoxia . Nausea and body aches. General illness. TECHNIQUE: Single AP portable view of the chest. COMPARISON: Comparison is made with prior study dated 12/25/2021. FINDINGS: EKG electrodes are seen. New opacity seen in the right upper lobe. This most likely represents consolidation in the right upper lobe. Radiographic follow-up is recommended. There is no demonstrated pleural abnormality. There is mild cardiac enlargement. Normal mediastinum and jonas. There is prominence of the pulmonary hilar arteries without peripheral pulmonary vascular congestion, suggesting pulmonary hypertension. Endoluminal stent grafting of the aortic knob and the descending thoracic aorta. There are diffuse degenerative changes of the visualized thoracic spine. Prior fusion of the lower thoracic and upper lumbar spines. There is degenerative osteoarthritis of the bilateral shoulders. There is no demonstrated abnormality of the visualized soft tissue structures of the upper abdomen. RAD/Chest 1 View (Portable) IMPRESSION: New opacity in the right upper lobe suggestive of a pneumonic infiltration. Radiographic follow-up is recommended. Electronically Signed: Selvin Price MD at 14:13 EST ,
[2022-07-24 13:51] LABS: Differential Comment SCANNED
[2022-07-24] MEDS: Ceftriaxone 1 GM/50 ML BAG IV (14:55)
--- NOTE | 2022-07-24 15:00 | HP.PCM.HOS_ITS ---
HPI - General General Date of Admission: 07/24/22 Date of Service: 07/24/22 Chief Complaint: Dyspnea, recent URI type symptoms, worsening. 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, Diffuse large cell lymphoma in remission, DARRIUS on BIPAP q HS, PVD, Former tobacco use, Hx Multinodular nontoxic goiter, COPD who presents to the [facility] ED on 07/24/22 with history of persistent cough and URI type symptoms (low-grade temperatures, chills, sore throat, frontal mild headache, cough without marked sputum, body aches, nausea, emesis, diarrhea) x 4 days with fever and chills with also her having similar symptoms with home negative COVID testings with recent ED evaluations with discharge to home however she has become increasingly short of breath with fevers low-grade with a ssociated nausea and emesis and no marked productive sputum but given ongoing prompted ED evaluation. Work-up in the ED included T99.2, heart rate initially 91 with most recent repeat 79, BP 177/113 initially with most recent repeat 160/92, respiratory rate initially 16 with 83% on room air eventually requiring 6 L nasal cannula to maintain 94% oxygenation and upon evaluation transitioning to 15 L high flow, CBC with WC 25.6, hemoglobin 13.2, platelet 339 with significant left shift, BMP with BUN/current 31/1.69, lactic acid 1.4 otherwise unremarkable, rapid COVID and influenza antigens negative, chest x-ray with new opacity in the right upper lobe suggestive of pneumonic infiltration, EKG with sinus rhythm with PVCs with no acute evidence of ischemia. In the ED patient ministered Solu-Medrol 125 mg IV x1, DuoNeb therapy as well as albuterol, 1 L normal saline bolus, azithromycin and Rocephin therapies. PENDING SALE TO [facility] Medical History Bilateral carotid bruits Bradycardia Carotid bruit Diffuse large cell lymphoma in remission Dissection of thoracic aorta (~09/04/18) Essential (primary) hypertension GERD (gastroesophageal reflux disease) History of deep venous thrombosis (DVT) of distal vein of right lower extremity History of stent insertion of renal artery (~07/30/18) History of stent insertion of renal artery Hyperlipemia, mixed Incontinence Multinodular goiter (nontoxic) Nonhealing surgical wound Nonrheumatic aortic valve stenosis Nonrheumatic mitral valve insufficiency DARRIUS (obstructive sleep apnea) Osteoporosis Peripheral vascular disease Postlaminectomy syndrome Renal artery stenosis Wound dehiscence, surgical Wound, open, back Home Medications biotin 10,000 mcg capsule 10,000 mcg PO TID SUPPLEMENT 11/06/17 [History Last Taken 07/23/22] aspirin 81 mg tablet,delayed release (Adult Low Dose Aspirin) 81 mg PO DAILY HEART HEALTH 08/13/18 [History Last Taken 07/23/22] clonidine HCl 0.3 mg tablet 0.3 mg PO TID BLOOD PRESSURE 08/13/18 [History Last Taken 07/23/22] docusate sodium 100 mg tablet 100 mg PO 4X/DAY Constipation 08/13/18 [History Last Taken 07/23/22] hydralazine 100 mg tablet 100 mg PO Q6H BLOOD PRESSURE 08/13/18 [History Last Taken 07/24/22] labetalol 200 mg tablet 300 mg PO TID BLOOD PRESSURE 08/13/18 [History Last Taken 07/23/22] lisinopril 10 mg tablet 10 mg PO DAILY blood pressure 12/01/18 [History Last Taken 07/23/22] cyanocobalamin (vitamin B-12) 5,000 mcg capsule 5,000 mcg PO DAILY supplement 1 08/08/18 [History Last Taken 07/23/22] omeprazole 20 mg capsule,delayed release 20 mg PO DAILY acid reflux 06/08/19 [History Last Taken 07/23/22] lorazepam 0.5 mg tablet 0.5 mg PO QHS PRN Anxiety 5 days #5 tabs 06/12/19 [Rx Last Taken Unknown] ascorbate calcium (vitamin C) 500 mg tablet 500 mg PO DAILY SUPPLEMENT 06/19/21 [History Last Taken 07/23/22] cholecalciferol (vitamin D3) 50 mcg (2,000 unit) capsule 50 mcg PO DAILY SUPPLEMENT 06/19/21 [History Last Taken 07/23/22] estradiol 0.01% (0.1 mg/gram) vaginal cream (Estrace) 1 g vaginal SUWE 06/19/21 [History Last Taken 07/15/22] methylcellulose (with sugar) oral powder 850 g PO BID constipation 06/19/21 [History Last Taken 07/23/22] zinc 50 mg tablet 50 mg PO DAILY SUPPLEMENT 06/19/21 [History Last Taken 07/23/22] oxycodone 5 mg tablet 5 mg PO QHS PAIN 12/25/21 [History Last Taken 07/23/22] alendronate 70 mg tablet 70 mg PO PATINO BONES 12/29/21 [History Last Taken 07/22/22] Glucosamine Chondroitin 1 tab PO/SL BID supplement 07/24/22 [History Last Taken 07/24/22] acetaminophen 650 mg tablet,extended release 650 mg PO Q8H PRN Pain 07/24/22 [History Last Taken Unknown] amlodipine 10 mg tablet 10 mg PO DAILY BLOOD PRESSURE 07/24/22 [History Last Taken 07/23/22] multivitamin 1 tab PO DAILY HEALTH MAINTENANCE 07/24/22 [History Last Taken 07/24/22] omega-3 fatty acids 1,000 mg capsule 5,000 mg PO DAILY SUPPLEMENT 07/24/22 [History Last Taken 07/23/22] turmeric root extract 500 mg tablet 500 mg PO DAILY SUPPLEMENT 07/24/22 [History Last Taken 07/24/22] Allergy/AdvReac Type Severity Reaction Status Date / Time bisoprolol Allergy bleeding Verified 07/24/22 12:06 levofloxacin [From Levaquin] Allergy anxiety Verified 07/24/22 12:06 meloxicam Allergy bleeding Verified 07/24/22 12:06 Sulfa (Sulfonamide Allergy hives Verified 07/24/22 12:06 Antibiotics) codeine AdvReac Other Verified 07/24/22 12:06 Family History Mother CAD (coronary artery disease) <65 Daughter Breast cancer Sister Breast cancer Father , at age 53 Brain aneurysm Heart disease Daughter Cancer Thyroid Cancer Surgical History History of bunionectomy of right great toe History of carpal tunnel release History of cataract surgery History of left hip replacement History of left knee replacement History of open reduction and internal fixation (ORIF) procedure History of partial hysterectomy Previous back surgery S/P lumbar fusion S/P thyroid biopsy (~12/2021) Status post right knee replacement Social History Smoking Status: Former smoker alcohol intake: current alcohol intake frequency: a few times a month substance use type: does not use caffeine: Yes Type: coffee Number of servings: 1 what type of physical activity do you participate in: walking and weight training frequency: 3-4 times per week duration: 60-90 minutes/day seatbelt use: always do you feel safe at home: Yes additional social history: -Matthew BEE Narrative Admission Review of Systems: CONSTITUTIONAL: No weight loss, + fever, chills, weakness or fatigue. HEENT: + Congestion, rhinorrhea, sore throat. Eyes: No visual loss, blurred vision, double vision or yellow sclerae. Ears, Nose, Throat: No hearing loss, sneezing. SKIN: No rash or itching, lesions, wounds. CARDIOVASCULAR: No chest pain, chest pressure or chest discomfort, palpitations, edema, orthopnea, syncopal events. RESPIRATORY:+ shortness of breath, cough without marked sputum, wheezing, No hemoptysis. GASTROINTESTINAL: + anorexia, nausea, vomiting, diarrhea, No abdominal pain, melena, BRBPR. GENITOURINARY: No dysuria, frequency, urgency or retention. NEUROLOGICAL: + headache, No dizziness, syncope, paralysis, ataxia, numbness or tingling in the extremities, focal weakness, change in bowel or bladder control, seizure. MUSCULOSKELETAL: + muscle, back pain, joint pain or stiffness. HEMATOLOGIC: No anemia, bleeding or bruising. LYMPHATICS: No enlarged nodes. No history of splenectomy. PSYCHIATRIC: No history of depression or anxiety. ENDOCRINOLOGIC: No reports of sweating, cold or heat intolerance. No polyuria or polydipsia. ALLERGIES: + history of hives, rhinitis. Vital Signs Vital Signs Vital Signs: 07/24/22 12:06 07/24/22 12:10 07/24/22 12:13 Temperature 99.2 F H Temperature Source Temporal Pulse Rate 91 87 Respiratory Rate 16 24 H Respiratory Effort Respiratory Pattern Blood Pressure 177/113 H Blood Pressure Mean 134 Pulse Ox 83 90 Oxygen Delivery Method Room Air Nasal Cannula Oxygen Flow Rate (L/min) 4 07/24/22 12:17 07/24/22 12:45 07/24/22 12:57 Temperature Temperature Source Pulse Rate 77 74 Respiratory Rate 24 H 21 H Respiratory Effort Short of Breath Respiratory Pattern Tachypnea Blood Pressure 135/83 H Blood Pressure Mean 100 Pulse Ox 89 Oxygen Delivery Method Nasal Cannula Oxygen Flow Rate (L/min) 5 07/24/22 13:33 Temperature Temperature Source Pulse Rate 79 Respiratory Rate 18 Respiratory Effort Respiratory Pattern Blood Pressure 162/92 H Blood Pressure Mean 115 Pulse Ox 94 Oxygen Delivery Method Nasal Cannula Oxygen Flow Rate (L/min) 6 Weight Weight: 146 lb 12.8 oz Body Mass Index (BMI) 28.6 Physical Exam Narrative Physical Examination: General: Awake, alert, oriented x 3 and cooperative, seated upright in the ED bed, fatigued and ill-appearing, increased respiratory rate with accessory muscle usage, currently requesting RT to place on continuous BiPAP given worsening status has had transition just recently to 15 L high flow. Skin: Normal color, normal turgor, no icterus, no cyanosis except occasional staged ecchymoses. HEENT: AT/NC, EOMI, PERRLA, dry MM, no carotid bruits or JVD noted. Lungs: Significantly diminished, greater bases, mildly coarse upper airway, right greater than left, diffuse mild soft and expiratory wheezing but more than anything very poor air movement, increased respiratory rate with some accessory muscle usage, evidence of distress, currently placing on BiPAP. Heart: Tachycardic with regular rhythm; no gallop, rub audible. Abdomen: Soft, NTTP, ND, distant normal BS, no HSM. Extremities: No cyanosis, clubbing, or edema. Neurological: Patient awake, alert, oriented as noted, cognitive function intact; pupils equally reactive to light and accommodation, cranial nerves II- XII grossly normal, moving all 4 extremities, no focal deficits, strength severely global decrease secondary to acute presentation as noted. Psychiatric: Affect appears fatigued, ill-appearing, worsening respiratory status, no acute evidence of depressive or anxiety feelings. Results Lab / Micro Data Result Diagrams: 07/24/22 12:45 07/24/22 12:45 Labs: Laboratory Results - last 24 hr 07/24/22 12:45: WBC 25.6 H, RBC 4.26, Hgb 13.2, Hct 41.1, MCV 96.5, MCH 31.0, MCHC 32.1, RDW Std Deviation 51.5 H, RDW Coeff of Tom 14.6, Plt Count 339, MPV 9.1, Immature Gran % (Auto) 2.600 H, Neut % (Auto) 85.0 H, Lymph % (Auto) 5.2 L, [place] % (Auto) 6.4, Eos % (Auto) 0.5, Baso % (Auto) 0.3, Absolute Neuts (auto) 21.7 H, Absolute Lymphs (auto) 1.34, Nucleated RBC % 0, Differential Comment SCANNED, Diff Path Review November07/24/22 12:45: Sodium 136, Potassium 3.8, Chloride 105, Carbon Dioxide 23.0, Anion Gap 8, BUN 31 H, Creatinine 1.69 H, Estim Creat Clear Calc 17.80, Est GFR (MDRD) Af Amer 37 L, Est GFR (MDRD) Non-Af 31 L, BUN/Creatinine Ratio 18.3, Glucose 105, Calcium 10.0 07/24/22 12:50: Lactic Acid 1.4 Micro: Microbiology 07/24/22 12:45 Nasal Secretion SARS-CoV-2 & FLU Antigen (Rapid) - Final Rhythm Strip Rhythm Strip: Sinus Rhythm Rate: 83 Ectopy: PVC(s) Radiology Impression Chest X-Ray 07/24/22 13:35 IMPRESSION: New opacity in the right upper lobe suggestive of a pneumonic infiltration. Radiographic follow-up is recommended. 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, Diffuse large cell lymphoma in remission, DARRIUS on BIPAP q HS, PVD, Former tobacco use, Hx Multinodular nontoxic goiter, [employer] who presents to the [facility] ED on 07/24/22 with history of persistent cough and URI type symptoms (low-grade temperatures, chills, sore throat, frontal mild headache, cough without marked sputum, body aches, nausea, emesis, diarrhea) x 4 days with fever and chills with also her having similar symptoms with home negative COVID testings with recent ED evaluations with discharge to home however she has become increasingly short of breath with fevers low-grade with associated nausea and emesis and no marked productive sputum but given ongoing prompted ED evaluation. #1. Acute Hypoxic Respiratory Failure secondary to Acute RUL Pneumonia and Acute on Chronic COPD Exacerbation: Will admit to PCU given high oxygen usage in case of transition to BIPAP needs and was concerning appearance upon ED presentation, placing on BiPAP now following ED evaluation, ABG requested, continue ATC duonebs, PRN albuterol, maintained on IV Rocephin and Azithromycin, HOB, IS parameters w/ pending sputum culture, full respiratory viral panel, COVID PCR and urine antigens. Bld cx x 2 obtained in the ED. #2. Chronic Kidney Disease Stage III, unclear subtype: Admission BUN/Cr 31/1.69, baseline renal function 1.3-1.6, repeat BMP in AM. #3. Hypertension: Continue home regimen including amlodipine, clonidine, hydralazine, labetalol, lisinopril, PRN hydralazine. #4. Hyperlipidemia: Not on statin therapy, defer to outpatient. #5. History of renal artery stenosis: Status post PCI, continue aspirin, hypertensive regimen, currently not on statin therapy per list, awaiting clarification. #6. History of VTE: Patient with history DVT right lower extremity, not currently chronic anticoagulant therapy, notes were used remotely. #7. DARRIUS: BiPAP nightly however currently using continuous given acute presentation, worsening. #8. History diffuse large cell lymphoma: Considered in remission, encourage continued outpatient follow-up with oncology as previously arranged for continued monitoring. #9. Anxiety: We will can you patient home low-dose as needed lorazepam however given her advanced age certainly potentially an SSRI or alternate regimen might be more appropriate. #10. GERD: We will continue patient home PPI. #11. DVT prophylaxis: SCDs, Lovenox. #12. CODE status: Patient HCPOA is patient's and potentially her daughter Stacy as well secondary and living will is currently in place. Discussed CODE status at length including difference between FULL code, DNR-CCA and DNR-CC status. Following discussions about the differences in these status, requested Full. Advanced Care Planning Face to Face Time: 18 minutes. Admission Evaluation Time spent evaluating chart, patient history, patient evaluation, care planning and discussion with specialists: 75 minutes. Charges/Coding Visit Charges Inpatient E&M: 77733 Init Hosp L3 Procedures Hospitalists Procedures: 70611 Advncd Care Plan 30 Min
--- NOTE | 2022-07-24 15:01 | NURSING ---
DR POE FOR DR SANDOVAL
--- NOTE | 2022-07-24 15:09 | NURSING ---
PCU WHITE HYPOXIA, PNEUMONIA, COPD FLARE
--- NOTE | 2022-07-24 15:21 | ED.RN ---
Dr. Rust stated no need for blood cultures ordered.
[2022-07-24 15:46] LABS: Allen Test Positive; Base Excess -4 mmol/L (-2 to +2); Bicarbonate 20.7 mmol/L (22-26); Blood Gas Specimen Type ART; Comment 24/12; FI02 70; Mode BiLevel; O2 Delivery Device BiPAP; PEEP 7; PO2 55 mmHG (75-100); RR 12; SITE L Radial; SO2 89 % (95-99); Total Carbon Dioxide 22 mmol/L; Vt 450; pCO2 30.7 mmHg (35-45); pH 7.44 (7.35-7.45)
[2022-07-24 17:45] LABS: Procalcitonin 3.54 ng/mL (0.00-0.09)
[2022-07-24] MEDS: hydrALAZINE 50 MG Tablet 100 MG PO ×2 (17:52→22:59)
[2022-07-24] MEDS: Docusate Sodium 100 MG Capsule PO ×2 (17:53→22:41)
[2022-07-24] MEDS: Acetaminophen 325 MG Tablet 650 MG PO (17:57)
[2022-07-24] MEDS: LORazepam 0.5 MG Tablet PO (17:57)
[2022-07-24] MEDS: Labetalol 100 MG Tablet 300 MG PO (22:41)
[2022-07-24] MEDS: Methylcellulose 2 GM Bottle PO (22:41)
[2022-07-24] MEDS: guaiFENesin 1,200 MG Tablet 1200 MG PO (22:41)
[2022-07-24] MEDS: cloNIDine HCl 0.1 MG Tablet 0.3 MG PO (22:42)
[2022-07-24] MEDS: oxyCODONE 5 MG Tablet PO (22:44)
[2022-07-25] VITALS (20 sets, daily range): BP systolic 110–135; BP diastolic 55–72; PULSE 64–73; RESP 12–28; TEMP 36.2–37.6; O2SAT 92–97
[2022-07-25] MEDS: 0.9% Saline Lock 10 ML Syringe IV ×2 (05:47→21:46)
[2022-07-25] MEDS: Labetalol 100 MG Tablet 300 MG PO ×3 (05:47→21:45)
[2022-07-25] MEDS: hydrALAZINE 50 MG Tablet 100 MG PO ×2 (05:47→17:23)
[2022-07-25] MEDS: cloNIDine HCl 0.1 MG Tablet 0.3 MG PO ×3 (05:47→21:45)
[2022-07-25 06:42] LABS: Absolute Neutrophil Count 16.9 X10^3/uL (2.0-7.7); Basophil# 0.05 X10^3/uL; Basophil% 0.3 % (0-1); Eosinophil# 0.18 X10^3/uL; Eosinophils% 0.9 % (0-5); Hemoglobin 11.2 g/dL (12.0-15.0); Lymphocyte % 5.1 % (19-41); Mean Corp Hgb Conc 32.9 g/dL (32-36); Mean Corpuscular Hgb 31.5 pg (27.0-32.0); Mean Corpuscular Volume 95.8 fL (81-99); Mean Platelet Vol. 8.8 fl (6.2-12.0); Monocyte# 0.96 X10^3/uL; Monocyte% 4.9 % (0-10); NRBC Flagged by Analyzer 0 % (0-5); Neutrophil # 16.89 X10^3/uL (2.7-7.7); Neutrophil % 86.4 % (47-70); Platelet Count 260 K/mm3 (150-450); RBC Distribution Width CV 14.5 % (11.6-14.6); RBC Distribution Width SD 51.6 fl (35.1-43.9); Red Blood Count 3.55 M/mm3 (4.2-5.4); White Blood Count 19.6 K/mm3 (4.4-11.0)
[2022-07-25] MEDS: Ipratropium/Albuterol Sulfate 3 ML AMPUL.NEB INHALATION ×4 (07:06→19:32)
[2022-07-25 07:10] LABS: ALB/GLOB Ratio 0.4 RATIO (0.9-2.4); AST(SGOT) 31 U/L (15-37); Alanine Aminotransfer ALT/SGPT 60 U/L (13-56); Albumin, Serum 2.1 g/dL (3.2-5.0); Alkaline Phosphatase 128 U/L (45-117); Anion Gap 6 (5-15); BUN 31 mg/dL (7-18); Calcium,Total 8.9 mg/dL (8.5-10.1); Chloride 105 mmol/L (98-107); Creatinine, Serum 1.35 mg/dL (0.55-1.02); EST Glomerular Filtration Rate 40 mL/min (>60); Est Glom Filt Rate - Afr Amer 48 mL/min (>60); Estimated Creatinine Clearance 27.91 ml/min; Globulin 4.7 g/dL (2.2-4.2); Glucose 135 mg/dL (74-106); Potassium 3.6 mmol/L (3.5-5.1); Protein, Total 6.8 g/dL (6.4-8.2); Sodium Level 135 mmol/L (136-145)
[2022-07-25] MEDS: guaiFENesin 1,200 MG Tablet 1200 MG PO ×2 (08:47→21:45)
[2022-07-25] MEDS: Lisinopril 10 MG Tablet PO (08:47)
[2022-07-25] MEDS: Methylcellulose 2 GM Bottle PO ×2 (08:47→21:46)
[2022-07-25] MEDS: Enoxaparin 30 MG/0.3 ML Syringe SC (08:47)
[2022-07-25] MEDS: Aspirin E.C. 81 MG Tablet PO (08:47)
[2022-07-25] MEDS: Pantoprazole Sodium 20 MG Tablet PO (08:47)
[2022-07-25] MEDS: amLODIPine 10 MG Tablet PO (08:47)
[2022-07-25] MEDS: Docusate Sodium 100 MG Capsule PO ×4 (08:47→21:45)
[2022-07-25] MEDS: Ceftriaxone 1 GM/50 ML BAG IV (08:48)
--- NOTE | 2022-07-25 10:00 | CASEMGMT ---
RN CHRISTA Face to Face with patient for initial transition planning/care coordination assessment. RN CM introduced self and role at [facility]. Patient lying in bed, alert and oriented. Patient willing to participate in assessment and is able to answer all questions appropriately. Care providers, pharmacy, and demographics verified. Patient wishes to discharge home, will monitor for HHC. Patient states he has no further needs or concerns at this time. CM to follow for discharge planning needs that may arise. PCP: [facility] Specialists: Jake, pulmonologis; Shelley, jesseist Preferred Pharmacy: [facility] Insurance: [employer] Prescription Benefit: yes Living Will/HPOA: yes, Matthew Yanes LNOK: Living Arrangements: Patient lives with in a 2 story home with bed and bath on first floor, 3 steps to enter the home. Patient states she is independent at home. Transportation: self, DME/HHC: Patient has shower chair, raised toilet, cane, walker, grab bars, bipap, and pulse ox at home. Discussed possible home oxygen at discharge and DME agencies, patient prefers [employer]. No previous HHC or SNF. Disposition Plan: Patient to discharge home with family support and follow-up plans in place. Will monitor for possible HHC and home oxygen at discharge. Adrienne PICKERING, RN, CM
--- NOTE | 2022-07-25 10:30 | PN.HOSP_ITS ---
Subjective Subjective Follow-up pneumonia ? Patient is an 82-year-old lady admitted with shortness of breath imaging studies obtained on admission did show New opacity in the right upper lobe suggestive of a pneumonic infiltration.. Admitted to a monitored bed for subsequent management Objective Data Objective Data Vital Signs: Vital Signs Temp Pulse Resp BP Pulse Ox O2 Del Method O2 Flow Rate 97.9 F 71 22 H 128/64 H 94 Bi-pap 6 07/25/22 04:00 07/25/22 07:09 07/25/22 07:09 07/25/22 05:47 07/25/22 07:09 07/25/22 04:00 07/24/22 15:00 FiO2 50 07/25/22 07:09 Oxygen Flow Rate (L/min) 6 Oxygen Delivery Method Bi-pap Weight: 65.9 kg Body Mass Index (BMI) 23.8 Intake & Output: Intake and Output for Last 24 Hours 07/23/22 07/24/22 07/25/22 23:59 23:59 23:59 Intake Total 1305 / 1305 50 / 50 Output Total 250 / 250 Balance 1305 / 1305 -200 / -200 Lab / Micro Data Result Diagrams: 07/25/22 06:20 07/25/22 06:20 Labs: Laboratory Results - last 24 hr 07/24/22 12:45: WBC 25.6 H, RBC 4.26, Hgb 13.2, Hct 41.1, MCV 96.5, MCH 31.0, MCHC 32.1, RDW Std Deviation 51.5 H, RDW Coeff of Tom 14.6, Plt Count 339, MPV 9.1, Immature Gran % (Auto) 2.600 H, Neut % (Auto) 85.0 H, Lymph % (Auto) 5.2 L, [place] % (Auto) 6.4, Eos % (Auto) 0.5, Baso % (Auto) 0.3, Absolute Neuts (auto) 21.7 H, Absolute Lymphs (auto) 1.34, Nucleated RBC % 0, Differential Comment SCANNED, Diff Path Review November07/24/22 12:45: Sodium 136, Potassium 3.8, Chloride 105, Carbon Dioxide 23.0, Anion Gap 8, BUN 31 H, Creatinine 1.69 H, Estim Creat Clear Calc 17.80, Est GFR (MDRD) Af Amer 37 L, Est GFR (MDRD) Non-Af 31 L, BUN/Creatinine Ratio 18.3, Glucose 105, Calcium 10.0 07/24/22 12:50: Lactic Acid 1.4 07/24/22 16:20: COVID-19 (PATIT) Not Detected 07/24/22 16:39: Procalcitonin 3.54 H 07/25/22 06:20: WBC 19.6 H, RBC 3.55 L, Hgb 11.2 L, Hct 34.0 L, MCV 95.8, MCH 31.5, MCHC 32.9, RDW Std Deviation 51.6 H, RDW Coeff of Tom 14.5, Plt Count 260, MPV 8.8, Immature Gran % (Auto) 2.400 H, Neut % (Auto) 86.4 H, Lymph % (Auto) 5.1 L, [place] % (Auto) 4.9, Eos % (Auto) 0.9, Baso % (Auto) 0.3, Absolute Neuts (auto) 16.9 H, Absolute Lymphs (auto) 1.00, Nucleated RBC % 0 07/25/22 06:20: Sodium 135 L, Potassium 3.6, Chloride 105, Carbon Dioxide 24.0, Anion Gap 6, BUN 31 H, Creatinine 1.35 H, Estim Creat Clear Calc 27.91, Est GFR (MDRD) Af Amer 48 L, Est GFR (MDRD) Non-Af 40 L, BUN/Creatinine Ratio 23.0 H, Glucose 135 H, Calcium 8.9, Total Bilirubin 0.50, AST 31, ALT 60 H, Alkaline Phosphatase 128 H, Total Protein 6.8, Albumin 2.1 L, Globulin 4.7 H, Albumin/Globulin Ratio 0.4 L Micro: Microbiology 07/25/22 01:14 Urine, Clean Catch Streptococcus pneumoniae Antigen (M - Final Streptococcus pneumonia Ag 07/25/22 01:14 Urine, Clean Catch Legionella Antigen - Final 07/24/22 16:20 Mucosa - Nasopharyngeal Respiratory Panel (PCR) - Final 07/24/22 12:45 Nasal Secretion SARS-CoV-2 & FLU Antigen (Rapid) - Final ABG Data ABG results: ABG 07/24/22 15:38 Specimen Type ART Sample Site L Radial pH 7.44 Bicarbonate Actual 20.7 L Total CO2 22 Base Excess -4 L O2 Saturation 89 L O2 % 70 ABG pCO2 30.7 L ABG pO2 55 L Jaylon Test Positive Respiration Rate 12 O2 Delivery Device BiPAP Vent Mode BiLevel Tidal Volume 450 POC PEEP 7 Clinical Comments 07/07 Radiography Diagnostic Testing: Radiology Impression Chest X-Ray 07/24/22 13:35 IMPRESSION: New opacity in the right upper lobe suggestive of a pneumonic infiltration. Radiographic follow-up is recommended. Electronically Signed: Selvin Price MD at 14:13 EST , Rhythm Strip Rhythm Strip: Sinus Rhythm Rate: 83 Ectopy: PVC(s) Physical Exam Narrative GENERAL: cooperative HEENT: Atraumatic; normocephalic EYES; Anicteric, Normal Conjunctiva NECK; supple, normal thyroid, RESPIRATORY: Diminished to auscultation CARDIOVASCULAR: Regular S1 S2, GI: soft, normoactive bowel sounds, : No Renal angle tenderness; EXTREMITIES: No edema, no clubbing, MUSCULOSKELETAL: no muscle wasting NEURO: Awake; no lateralizing signs. SKIN: No Rash PSYCH; Flat affect Assessment & Plan Assessment/Plan (1) Pneumonia: (2) Hypoxia: PLAN: Plan Patient is an 82-year-old lady admitted with shortness of breath imaging studies obtained on admission did show New opacity in the right upper lobe suggestive of a pneumonic infiltration.. Admitted to a monitored bed for subsequent management 1. Acute hypoxia secondary to combination of COPD and pneumonia ? Patient was placed on BiPAP admitted to a monitored bed BiPAP has since been weand off 2. Pneumonia - Suspected to be secondary to streptococcal pneumonia, Blood and sputum cultures sent. Patient placed on Rocephin and Zithromax and placed on oxygen t itrated to keep Pulse Ox greater than 90 3. COPD with acute exacerbation ? Patient was managed with noninvasive ventilation as stated above in addition to systemic steroid and bronchodilator treatment 4. Essential hypertension ? Patient blood pressure controlled on amlodipine, labetalol and lisinopril did continue 5. GERD ? Patient is on omeprazole substituted with Protonix in the hospital 6. Obstructive sleep apnea ? 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 Renal artery stenosis ? With previous PCI currently stable 1. Previous history of aortic dissection ? Status post intervention which he states 9. History of diffuse large cell lymphoma - currently in remission 10. DVT prophylaxis ? SC Lovenox Time spent in the patient's overall evaluation,decision-making process, review of diagnostic data, adjustment of management, discussion with other providers, nursing nursing and ancillary staff involved in patient's care documentation, 40 Minutes
[2022-07-25] MEDS: Ensure Plus High Protein 120 ML LIQUID PO ×2 (12:03→17:22)
[2022-07-25] MEDS: oxyCODONE 5 MG Tablet PO (21:45)
[2022-07-25] MEDS: MELATONIN 3 MG TABLET PO (22:38)
[2022-07-26] VITALS (20 sets, daily range): BP systolic 112–150; BP diastolic 51–94; PULSE 59–83; RESP 12–28; TEMP 36.3–36.8; O2SAT 91–96
[2022-07-26] MEDS: hydrALAZINE 50 MG Tablet 100 MG PO ×5 (00:05→23:41)
[2022-07-26] MEDS: cloNIDine HCl 0.1 MG Tablet 0.3 MG PO ×3 (05:23→22:16)
[2022-07-26] MEDS: Labetalol 100 MG Tablet 300 MG PO ×3 (05:23→22:17)
[2022-07-26] MEDS: 0.9% Saline Lock 10 ML Syringe IV ×3 (05:24→13:22)
[2022-07-26] MEDS: Ipratropium/Albuterol Sulfate 3 ML AMPUL.NEB INHALATION ×4 (07:03→19:10)
--- NOTE | 2022-07-26 07:56 | CPS ---
removed from bipap and placed on 5 lpm nc.
[2022-07-26 09:21] LABS: Pathologist Review Reviewed
[2022-07-26] MEDS: Ceftriaxone 1 GM/50 ML BAG IV (09:40)
[2022-07-26] MEDS: Ensure Plus High Protein 120 ML LIQUID PO ×3 (09:44→18:16)
[2022-07-26] MEDS: Methylcellulose 2 GM Bottle PO ×2 (09:44→22:16)
[2022-07-26] MEDS: amLODIPine 10 MG Tablet PO (09:45)
[2022-07-26] MEDS: Enoxaparin 30 MG/0.3 ML Syringe SC (09:45)
[2022-07-26] MEDS: Docusate Sodium 100 MG Capsule PO ×4 (09:45→22:16)
[2022-07-26] MEDS: guaiFENesin 1,200 MG Tablet 1200 MG PO ×2 (09:45→22:17)
[2022-07-26] MEDS: Aspirin E.C. 81 MG Tablet PO (09:45)
[2022-07-26] MEDS: Lisinopril 10 MG Tablet PO (09:46)
[2022-07-26] MEDS: Pantoprazole Sodium 20 MG Tablet PO (09:46)
--- NOTE | 2022-07-26 10:05 | PCM.PN.HOSP ---
Subjective Subjective Follow-up pneumonia ? Patient seen still requiring supplemental oxygen currently 5 L/min flow to maintain adequate saturation. Patient urine antigen test came back positive for streptococcal pneumonia. Objective Data Objective Data Vital Signs: Vital Signs Temp Pulse Resp BP Pulse Ox O2 Del Method O2 Flow Rate 97.7 F L 59 L 18 124/51 H 96 Nasal Cannula 5 07/26/22 09:00 07/26/22 09:00 07/26/22 09:00 07/26/22 09:00 07/26/22 09:00 07/26/22 09:00 07/26/22 09:00 FiO2 35 07/26/22 05:19 Oxygen Flow Rate (L/min) 5 Oxygen Delivery Method Nasal Cannula Weight: 64.9 kg Body Mass Index (BMI) 23.8 Intake & Output: Intake and Output for Last 24 Hours 07/24/22 07/25/22 07/26/22 23:59 23:59 23:59 Intake Total 1305 / 1305 305 / 545 240 / 240 Output Total 250 / 650 400 / 400 Balance 1305 / 1305 55 / -105 -160 / -160 Lab / Micro Data Result Diagrams: 07/25/22 06:20 07/25/22 06:20 Labs: Laboratory Results - last 24 hr 07/24/22 12:45: Diff Path Review Reviewed Micro: Microbiology 07/25/22 01:14 Urine, Clean Catch Streptococcus pneumoniae Antigen (M - Final Streptococcus pneumonia Ag 07/25/22 01:14 Urine, Clean Catch Legionella Antigen - Final 07/24/22 16:20 Mucosa - Nasopharyngeal Respiratory Panel (PCR) - Final 07/24/22 12:45 Nasal Secretion SARS-CoV-2 & FLU Antigen (Rapid) - Final Rhythm Strip Rhythm Strip: Sinus Rhythm Rate: 83 Ectopy: PVC(s) Physical Exam Narrative GENERAL: cooperative HEENT: Atraumatic; normocephalic EYES; Anicteric, Normal Conjunctiva NECK; supple, normal thyroid, RESPIRATORY: Diminished to auscultation CARDIOVASCULAR: Regular S1 S2, GI: soft, normoactive bowel sounds, : No Renal angle tenderness; EXTREMITIES: No edema, no clubbing, MUSCULOSKELETAL: no muscle wasting NEURO: Awake; no lateralizing signs. SKIN: No Rash PSYCH; Flat affect Assessment & Plan Assessment/Plan (1) Pneumonia: (2) Hypoxia: PLAN: Plan Patient is an 82-year-old lady admitted with shortness of breath imaging studies obtained on admission did show New opacity in the right upper lobe suggestive of a pneumonic infiltration.. Admitted to a monitored bed for subsequent management 1. Acute hypoxia secondary to combination of COPD and pneumonia ? Patient was placed on BiPAP admitted to a monitored bed BiPAP has since been weand off -07/26/2022; Patient seen still requiring supplemental oxygen currently 5 L/min flow to maintain adequate saturation. Patient urine antigen test came back positive for streptococcal pneumonia. 2. Pneumonia pneumonia with streptococcal pneumonia - Suspected to be secondary to streptococcal pneumonia, Blood and sputum cultures sent. Patient placed on Rocephin and Zithromax and placed on oxygen titrated to keep Pulse Ox greater than 90 ? 07/26/2022; patient tested positive for streptococcal pneumonia antigen 3. COPD with acute exacerbation ? Patient was managed with noninvasive ventilation as stated above in addition to systemic steroid and bronchodilator treatment 4. Essential hypertension ? Patient blood pressure controlled on amlodipine, labetalol and lisinopril did continue 5. GERD ? Patient is on omeprazole substituted with Protonix in the hospital 6. Obstructive sleep apnea ? 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 Renal artery stenosis ? With previous PCI currently stable 1. Previous history of aortic dissection ? Status post intervention which he states 9. History of diffuse large cell lymphoma - currently in remission 10. DVT prophylaxis ? SC Lovenox Time spent in the patient's overall evaluation,decision-making process, review of diagnostic data, adjustment of management, discussion with other providers, nursing nursing and ancillary staff involved in patient's care documentation, 38 Minutes Charges/Coding Visit Charges Inpatient E&M: 95263 Subs Hosp L2
[2022-07-26] MEDS: Acetaminophen 325 MG Tablet 650 MG PO (22:17)
[2022-07-26] MEDS: oxyCODONE 5 MG Tablet PO (22:17)
[2022-07-26] MEDS: cycloBENZAPRine HCl 10 MG Tablet PO (23:40)
[2022-07-26] MEDS: LORazepam 0.5 MG Tablet PO (23:43)
[2022-07-27] VITALS (15 sets, daily range): BP systolic 119–161; BP diastolic 66–75; PULSE 68–80; RESP 18–21; TEMP 36.5–36.7; O2SAT 92–95
[2022-07-27] MEDS: cloNIDine HCl 0.1 MG Tablet 0.3 MG PO ×3 (04:59→20:47)
[2022-07-27] MEDS: Labetalol 100 MG Tablet 300 MG PO ×3 (04:59→20:49)
[2022-07-27] MEDS: hydrALAZINE 50 MG Tablet 100 MG PO ×3 (04:59→17:04)
[2022-07-27] MEDS: 0.9% Saline Lock 10 ML Syringe IV ×2 (05:00→20:49)
[2022-07-27] MEDS: Ipratropium/Albuterol Sulfate 3 ML AMPUL.NEB INHALATION ×4 (07:05→19:42)
[2022-07-27] MEDS: Lisinopril 10 MG Tablet PO (09:26)
[2022-07-27] MEDS: Pantoprazole Sodium 20 MG Tablet PO (09:26)
[2022-07-27] MEDS: guaiFENesin 1,200 MG Tablet 1200 MG PO ×2 (09:27→20:47)
[2022-07-27] MEDS: Enoxaparin 30 MG/0.3 ML Syringe SC (09:27)
[2022-07-27] MEDS: Ensure Plus High Protein 120 ML LIQUID PO ×2 (09:27→17:05)
[2022-07-27] MEDS: Methylcellulose 2 GM Bottle PO ×2 (09:27→20:47)
[2022-07-27] MEDS: Aspirin E.C. 81 MG Tablet PO (09:27)
[2022-07-27] MEDS: amLODIPine 10 MG Tablet PO (09:27)
[2022-07-27] MEDS: Docusate Sodium 100 MG Capsule PO ×4 (09:27→20:47)
--- NOTE | 2022-07-27 10:23 | PCM.PN.HOSP ---
Subjective Subjective F/U Acute hypoxia Patient seen still remains significantly hypoxic. Order CT of the chest for further evaluation. Case was discussed with patient's daughter who did express concern about possible mold in the house. Also requested consultation with pulmonary medicine consult has been placed Objective Data Objective Data Vital Signs: Vital Signs Temp Pulse Resp BP Pulse Ox O2 Del Method O2 Flow Rate 97.9 F 68 18 153/74 H 93 Nasal Cannula 4 07/27/22 08:27 07/27/22 08:27 07/27/22 08:27 07/27/22 08:27 07/27/22 08:40 07/27/22 08:40 07/27/22 08:40 FiO2 35 07/26/22 23:02 Oxygen Flow Rate (L/min) 4 Oxygen Delivery Method Nasal Cannula Weight: 63.7 kg Body Mass Index (BMI) 23.8 Intake & Output: Intake and Output for Last 24 Hours 07/25/22 07/26/22 07/27/22 23:59 23:59 23:59 Intake Total 305 / 545 1305 / 1305 120 / 120 Output Total 250 / 650 1000 / 1000 350 / 350 Balance 55 / -105 305 / 305 -230 / -230 Lab / Micro Data Result Diagrams: 07/25/22 06:20 07/25/22 06:20 Micro: Microbiology 07/25/22 01:14 Urine, Clean Catch Streptococcus pneumoniae Antigen (M - Final Streptococcus pneumonia Ag 07/25/22 01:14 Urine, Clean Catch Legionella Antigen - Final 07/24/22 16:20 Mucosa - Nasopharyngeal Respiratory Panel (PCR) - Final 07/24/22 12:45 Nasal Secretion SARS-CoV-2 & FLU Antigen (Rapid) - Final Rhythm Strip Rhythm Strip: Sinus Rhythm Rate: 83 Ectopy: PVC(s) Physical Exam Narrative GENERAL: cooperative but appears ill looking HEENT: Atraumatic; normocephalic EYES; Anicteric, Normal Conjunctiva NECK; supple, normal thyroid, RESPIRATORY: Diminished to auscultation CARDIOVASCULAR: Regular S1 S2, GI: soft, normoactive bowel sounds, : No Renal angle tenderness; EXTREMITIES: No edema, no clubbing, MUSCULOSKELETAL: no muscle wasting NEURO: Awake; no lateralizing signs. SKIN: No Rash PSYCH; Flat affect Assessment & Plan Assessment/Plan (1) Pneumonia: (2) Hypoxia: PLAN: Plan Patient is an 82-year-old lady admitted with shortness of breath imaging studies obtained on admission did show New opacity in the right upper lobe suggestive of a pneumonic infiltration.. Admitted to a monitored bed for subsequent management 1. Acute hypoxia secondary to combination of COPD and pneumonia ? Patient was placed on BiPAP admitted to a monitored bed BiPAP has since been weand off -07/26/2022; Patient seen still requiring supplemental oxygen currently 5 L/min flow to maintain adequate saturation. Patient urine antigen test came back positive for streptococcal pneumonia. -07/27/2022; Patient seen still remains significantly hypoxic. Order CT of the chest for further evaluation. Case was discussed with patient's daughter who did express concern about possible mold in the house. Also requested consultation with pulmonary medicine consult has been placed 2. Pneumonia pneumonia with streptococcal pneumonia - Suspected to be secondary to streptococcal pneumonia, Blood and sputum cultures sent. Patient placed on Rocephin and Zithromax and placed on oxygen titrated to keep Pulse Ox greater than 90 ? 07/26/2022; patient tested positive for streptococcal pneumonia antigen 3. COPD with acute exacerbation ? Patient was managed with noninvasive ventilation as stated above in addition to systemic steroid and bronchodilator treatment 4. Essential hypertension ? Patient blood pressure controlled on amlodipine, labetalol and lisinopril did continue 5. GERD ? Patient is on omeprazole substituted with Protonix in the hospital 6. Obstructive sleep apnea ? 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 Renal artery stenosis ? With previous PCI currently stable 1. Previous history of aortic dissection ? Status post intervention which he states 9. History of diffuse large cell lymphoma - currently in remission 10. DVT prophylaxis ? SC Lovenox 11. Physical deconditioning - Requested for PT OT eval and social sciences lecturer to assist with discharge planning Time spent in the patient's overall evaluation,decision-making process, review of diagnostic data, adjustment of management, discussion with other providers, nursing nursing and ancillary staff involved in patient's care documentation, 40 Minutes Charges/Coding Visit Charges Inpatient E&M: 91429 Subs Hosp L2
--- NOTE | 2022-07-27 11:00 | CASEMGMT ---
RN CM in to discuss possible HHC. A list of HHC providers including quality and resource use data and consistent with the patient?s preferred geographical region, medical needs, and insurance network were provided from the [facility] Guide. Patient to review list and provide preferences. CM will continue to follow this patient and plan for a safe discharge.
[2022-07-27] MEDS: Ceftriaxone 1 GM/50 ML BAG IV (11:22)
--- NOTE | 2022-07-27 13:14 | CT_ITS ---
INDICATION: Fever and cough, history of large cell lymphoma and thoracic aortic dissection EXAMINATION: CT CHEST WITHOUT CONTRAST - CT Chest W/O Contrast Injection TECHNIQUE: Helically acquired images were obtained of the chest. A radiation dose optimization technique was used for this scan. IV Contrast dosage and agent: None. COMPARISON: Chest x-ray from 07/24/2022, previous CT scan from 2014 FINDINGS: LUNGS, PLEURA AND LARGE AIRWAYS: Lung windows show the lungs to be hyperexpanded. There is a poorly defined pleural-based opacification in the right upper lobe. There are air bronchograms suggesting this may be an inflammatory process but a neoplastic process needs to be excluded. This could easily represent a neoplasm with postobstructive infiltrate or atelectasis. There is also a suspicious pleural-based noncalcified nodule in the superior medial right lower lobe on axial image 52 measuring 1.54 x 1.20 cm. Linear atelectatic changes noted in the lung bases. No demonstrated effusion or pneumothorax. THYROID: Stable low-density thyroid nodules, larger on the right than the left. HEART AND PERICARDIUM: Heart size is normal. No pericardial effusion. CORONARY ARTERIES: Coronary artery calcification is seen. VESSELS: There is aneurysmal dilatation of the ascending thoracic aorta at 4.0 cm. I cannot assess for dissection without IV contrast. There is a small amount of low-density fluid around the ascending aorta as well. A stent has been placed in the aortic arch and descending thoracic aorta, no complications are noted. MEDIASTINUM AND SANDRA: There are enlarged mediastinal and perihilar lymph nodes measuring up to 1.22 cm in short axis dimension. These have increased in both size and number since the previous study. Esophagus is unremarkable. No hiatal hernia. UPPER ABDOMEN: Limited cuts through the upper abdomen do not show a suspicious abnormality. There is diffuse atherosclerosis and the hepatic flexure projects between the anterior edge of the liver and the peritoneal surface. BONES: Bony structures show degenerative change, surgical hardware in the lumbar spine and free of complication CT/Chest without Contrast IMPRESSION: Poorly-defined pleural-based opacification in the right upper lobe with air bronchograms. This could represent an infiltrate perhaps due to aspiration, but in a patient with known lymphoma, a metastatic lesion needs to be excluded. Suspicious 1.5 x 1.20 cm pleural-based nodule in the medial superior right lower lobe concerning for metastasis Mildly hyperexpanded lungs with chronic interstitial changes and bibasilar atelectasis. 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 I cannot assess for endoleak or dissection without IV contrast Borderline-enlarged mediastinal and perihilar lymph nodes measuring up to 1.22 cm in short axis dimension. These have increased in size and number since the previous study. Degenerative bony changes Electronically Signed: Lexx Luciano MD at 14:24 EST ,
--- NOTE | 2022-07-27 13:26 | CASEMGMT ---
Physician spoke with patient's daughter and she feels patient would benefit from going somewhere. SW met with patient. Introduced self and role at [facility]. SW asked patient if she feels she will be okay at home or if she needs to go somewhere short term for rehab. Patient said she thinks she will be fine at home. SW explained to patient that her daughter is concerned about her going home and she would like her to go somewhere for rehab. Patient said she knows why her daughter thinks that. They are trying to figure out if they have black mold. Patient said she will talk with her daughter. Gisell JARVIS
[2022-07-27] MEDS: BENZOCAINE/MENTHOL 1 LOZENGE MUCOUS MEM (15:13)
[2022-07-27] MEDS: oxyCODONE 5 MG Tablet PO (20:47)
[2022-07-27] MEDS: Acetaminophen 325 MG Tablet 650 MG PO (20:50)
[2022-07-27] MEDS: cycloBENZAPRine HCl 10 MG Tablet PO (20:51)
[2022-07-27] MEDS: MELATONIN 3 MG TABLET PO (20:51)
--- NOTE | 2022-07-27 23:45 | CPS ---
on home Bipap
[2022-07-28] VITALS (18 sets, daily range): BP systolic 119–171; BP diastolic 51–85; PULSE 46–79; RESP 15–20; TEMP 36.4–36.9; O2SAT 90–100
[2022-07-28] MEDS: hydrALAZINE 50 MG Tablet 100 MG PO ×5 (00:05→23:40)
[2022-07-28] MEDS: cloNIDine HCl 0.1 MG Tablet 0.3 MG PO ×3 (06:40→20:27)
[2022-07-28] MEDS: Labetalol 100 MG Tablet 300 MG PO ×3 (06:40→20:27)
[2022-07-28] MEDS: Ipratropium/Albuterol Sulfate 3 ML AMPUL.NEB INHALATION ×4 (07:20→20:32)
--- NOTE | 2022-07-28 07:22 | EX.PCM.CONCC ---
Assessment & Plan Assessment/Plan (1) Pneumonia: (2) Hypoxia: PLAN: Plan RECOMMENDATIONS: 1. Continue ceftriaxone as ordered. 2. Continue scheduled bronchodilators and steroids. 3. Wean supplemental oxygen to maintain saturations at or above 90%. 4. Encourage incentive spirometer use and mobilize patient as tolerated. 5. Perform walking oximetry prior to consideration for discharge home. 6. Recommend follow-up chest imaging in 6 to 8 weeks after completion of antibiotic treatment course. 7. Follow-up in the pulmonary medicine clinic within 2 weeks of discharge. IMPRESSIONS: 1. Shortness of breath and hypoxemia secondary to pneumococcal pneumonia The patient has a known history of mild obstructive lung disease, but does not have a supplemental oxygen requirement at her baseline. Her chest imaging did demonstrate a right upper lobe infiltrate with a positive streptococcal urinary antigen. The patient has been maintained on antimicrobials along with bronchodilators and steroids. She is clinically improving, currently only requiring 3 L/min of supplemental oxygen. I would not change any medical therapy at this time. I would, however, recommend follow-up chest imaging be completed 6 to 8 weeks post completion of her antibiotic treatment course. 2. History of obstructive sleep apnea Continue nocturnal Pap therapy per home regimen. 3. Hypertension/hyperlipidemia/history of diffuse large B-cell lymphoma in remission/GERD/anxiety Complicates care, management, recovery and prognosis. Continue home medications as indicated. This note was generated with [employer] dictation software. It may contain incorrect words, spelling, and punctuation that were not noted in checking the note before signing. HPI Consult Data Date of Consult: 07/29/22 HPI Narrative Reason for Consultation: Pneumonia with hypoxemia HPI Narrative: The patient is an 82-year-old female, with a history as outlined below, who presented to the emergency department via EMS on July 24 with productive cough, shortness of breath, nausea and vomiting. The patient has a reported history of mild obstructive lung disease and sleep apnea. On presentation to the emergency department, the patient was documented to have a temperature of 99.2 ?F. She was otherwise hemodynamically stable. Initial laboratory evaluation revealed an elevated white blood cell count of 25,000. Chemistry profile was notable for a creatinine of 1.69. Lactate was within normal limits. COVID testing was negative. Initial chest x-ray demonstrated a right upper lobe infiltrate. The patient was placed on antimicrobials, bronchodilators and steroids. She was admitted to the progressive care unit for further management. CT imaging of the chest completed on July 27 demonstrated a right upper lobe opacification with air bronchograms. There was also a noncalcified nodule in the medial right lower lobe measuring approximately 1.5 cm. Atelectasis static changes were noted in the left lung base. [facility] [place] Medical History Bilateral carotid bruits Bradycardia Carotid bruit Diffuse large cell lymphoma in remission Dissection of thoracic aorta (~09/04/18) Essential (primary) hypertension GERD (gastroesophageal reflux disease) History of deep venous thrombosis (DVT) of distal vein of right lower extremity History of stent insertion of renal artery (~07/30/18) History of stent insertion of renal artery Hyperlipemia, mixed Incontinence Multinodular goiter (nontoxic) Nonhealing surgical wound Nonrheumatic aortic valve stenosis Nonrheumatic mitral valve insufficiency DARRIUS (obstructive sleep apnea) Osteoporosis Peripheral vascular disease Postlaminectomy syndrome Renal artery stenosis Wound dehiscence, surgical Wound, open, back Home Medications biotin 10,000 mcg capsule 10,000 mcg PO TID SUPPLEMENT 11/06/17 [History Last Taken 07/23/22] aspirin 81 mg tablet,delayed release (Adult Low Dose Aspirin) 81 mg PO DAILY HEART HEALTH 08/13/18 [History Last Taken 07/23/22] clonidine HCl 0.3 mg tablet 0.3 mg PO TID BLOOD PRESSURE 08/13/18 [History Last Taken 07/23/22] docusate sodium 100 mg tablet 100 mg PO 4X/DAY Constipation 08/13/18 [History Last Taken 07/23/22] hydralazine 100 mg tablet 100 mg PO Q6H BLOOD PRESSURE 08/13/18 [History Last Taken 07/24/22] labetalol 200 mg tablet 300 mg PO TID BLOOD PRESSURE 08/13/18 [History Last Taken 07/23/22] lisinopril 10 mg tablet 10 mg PO DAILY blood pressure 12/01/18 [History Last Taken 07/23/22] cyanocobalamin (vitamin B-12) 5,000 mcg capsule 5,000 mcg PO DAILY supplement 06/08/19 [History Last Taken 07/23/22] omeprazole 20 mg capsule,delayed release 20 mg PO DAILY acid reflux 06/08/19 [History Last Taken 07/23/22] lorazepam 0.5 mg tablet 0.5 mg PO QHS PRN Anxiety 5 days #5 tabs 06/12/19 [Rx Last Taken Unknown] ascorbate calcium (vitamin C) 500 mg tablet 500 mg PO DAILY SUPPLEMENT 06/19/21 [History Last Taken 07/23/22] cholecalciferol (vitamin D3) 50 mcg (2,000 unit) capsule 50 mcg PO DAILY SUPPLEMENT 06/19/21 [History Last Taken 07/23/22] estradiol 0.01% (0.1 mg/gram) vaginal cream (Estrace) 1 g vaginal SUWE 06/19/21 [History Last Taken 07/15/22] methylcellulose (with sugar) oral powder 850 g PO BID constipation 06/19/21 [History Last Taken 07/23/22] zinc 50 mg tablet 50 mg PO DAILY SUPPLEMENT 06/19/21 [History Last Taken 07/23/22] oxycodone 5 mg tablet 5 mg PO QHS PAIN 12/25/21 [History Last Taken 07/23/22] alendronate 70 mg tablet 70 mg PO PATINO BONES 12/29/21 [History Last Taken 07/22/22] Glucosamine Chondroitin 1 tab PO/SL BID supplement 07/24/22 [History Last Taken 07/24/22] acetaminophen 650 mg tablet,extended release 650 mg PO Q8H PRN Pain 07/24/22 [History Last Taken Unknown] amlodipine 10 mg tablet 10 mg PO DAILY BLOOD PRESSURE 07/24/22 [History Last Taken 07/23/22] multivitamin 1 tab PO DAILY HEALTH MAINTENANCE 07/24/22 [History Last Taken 07/24/22] omega-3 fatty acids 1,000 mg capsule 5,000 mg PO DAILY SUPPLEMENT 07/24/22 [History Last Taken 07/23/22] turmeric root extract 500 mg tablet 500 mg PO DAILY SUPPLEMENT 07/24/22 [History Last Taken 07/24/22] Allergy/AdvReac Type Severity Reaction Status Date / Time bisoprolol Allergy bleeding Verified 07/24/22 12:06 levofloxacin [From Levaquin] Allergy anxiety Verified 07/24/22 12:06 meloxicam Allergy bleeding Verified 07/24/22 12:06 Sulfa (Sulfonamide Allergy hives Verified 07/24/22 12:06 Antibiotics) codeine AdvReac Other Verified 07/24/22 12:06 Family History Mother CAD (coronary artery disease) <65 Daughter Breast cancer Sister Breast cancer Father , at age 53 Brain aneurysm Heart disease Daughter Cancer Thyroid Cancer Surgical History History of bunionectomy of right great toe History of carpal tunnel release History of cataract surgery History of left hip replacement History of left knee replacement History of open reduction and internal fixation (ORIF) procedure History of partial hysterectomy Previous back surgery S/P lumbar fusion S/P thyroid biopsy (~12/2021) Status post right knee replacement Social History Smoking Status: Former smoker alcohol intake: current alcohol intake frequency: a few times a month substance use type: does not use caffeine: Yes Type: coffee Number of servings: 1 what type of physical activity do you participate in: walking and weight training frequency: 3-4 times per week duration: 60-90 minutes/day seatbelt use: always do you feel safe at home: Yes additional social history: -Matthew Physical Exam Const alert, oriented x3 and no apparent distress General Appearance: cooperative HEENT normocephalic and head/scalp atraumatic Eyes PERRL, EOMs intact bilaterally and conjunctivae normal Neck supple General: trachea midline Chest inspection of chest normal Resp normal respiratory effort Auscultation: diminished lung sounds; Negative for rales, rhonchi or wheezes Cardio regular rate and regular rhythm GI normal to inspection, nondistended, normoactive bowel sounds Extremity no clubbing, cyanosis or edema Skin no rashes or lesions noted Neuro oriented x3, CN's II-XII intact bilaterally, moves all extremities and no focal motor deficits Psych cooperative and affect normal Lab / Micro Data Result Diagrams: 07/28/22 06:33 07/28/22 06:33 Rhythm Strip Rhythm Strip: Sinus Rhythm Rate: 83 Ectopy: PVC(s) Radiology Impression Chest CT 07/27/22 13:14 IMPRESSION: Poorly-defined pleural-based opacification in the right upper lobe with air bronchograms. This could represent an infiltrate perhaps due to aspiration, but in a patient with known lymphoma, a metastatic lesion needs to be excluded. Suspicious 1.5 x 1.20 cm pleural-based nodule in the medial superior right lower lobe concerning for metastasis Mildly hyperexpanded lungs with chronic interstitial changes and bibasilar atelectasis. 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 I cannot assess for endoleak or dissection without IV contrast Borderline-enlarged mediastinal and perihilar lymph nodes measuring up to 1.22 cm in short axis dimension. These have increased in size and number since the previous study. Degenerative bony changes Electronically Signed: Lexx Luciano MD at 14:24 EST , Charges/Coding Visit Charges Inpatient E&M: 24926 Init Hosp L3
[2022-07-28 08:13] LABS: Hematocrit 37.7 % (37-47); Hemoglobin 11.9 g/dL (12.0-15.0); Mean Corp Hgb Conc 31.6 g/dL (32-36); Mean Corpuscular Hgb 30.4 pg (27.0-32.0); Mean Corpuscular Volume 96.2 fL (81-99); Mean Platelet Vol. 8.8 fl (6.2-12.0); POSITIVE COUNT YES; POSITIVE MORPHOLOGY YES; Platelet Count 331 K/mm3 (150-450); RBC Distribution Width CV 13.9 % (11.6-14.6); RBC Distribution Width SD 50.1 fl (35.1-43.9); Red Blood Count 3.92 M/mm3 (4.2-5.4); White Blood Count 10.3 K/mm3 (4.4-11.0)
[2022-07-28 08:28] LABS: Anion Gap 9 (5-15); BUN 41 mg/dL (7-18); BUN/Creat Ratio 35.3 RATIO (10-20); Calcium,Total 8.8 mg/dL (8.5-10.1); Chloride 107 mmol/L (98-107); Creatinine, Serum 1.16 mg/dL (0.55-1.02); EST Glomerular Filtration Rate 47 mL/min (>60); Est Glom Filt Rate - Afr Amer 57 mL/min (>60); Estimated Creatinine Clearance 32.49 ml/min; Glucose 109 mg/dL (74-106); Magnesium 2.2 mg/dL (1.6-2.6); Potassium 3.8 mmol/L (3.5-5.1); Sodium Level 139 mmol/L (136-145)
[2022-07-28 08:54] LABS: Differential Indicated MANUAL DIFF
[2022-07-28 09:06] LABS: Lymphocyte 9 % (19-41); Metamyelocyte 10 % (0-1); Monocyte 7 % (0-10); Myelocyte 17 % (0-0); Neutrophil-Segmented 57 % (47-70); Total Cells Counted 100 (MANUAL DIFF)
[2022-07-28 09:08] LABS: Platelet Estimate ADEQUATE (ADEQ)
[2022-07-28 09:11] LABS: Absolute Lymphocyte Count 0.93 X10^3/uL (0.83-4.51); Absolute Neutrophil Count 5.9 X10^3/uL (2.0-7.7)
[2022-07-28] MEDS: Pantoprazole Sodium 20 MG Tablet PO (09:17)
[2022-07-28] MEDS: Docusate Sodium 100 MG Capsule PO ×4 (09:17→20:27)
[2022-07-28] MEDS: Aspirin E.C. 81 MG Tablet PO (09:17)
[2022-07-28] MEDS: guaiFENesin 1,200 MG Tablet 1200 MG PO ×2 (09:17→20:27)
[2022-07-28] MEDS: Lisinopril 10 MG Tablet PO (09:18)
[2022-07-28] MEDS: Methylcellulose 2 GM Bottle PO ×2 (09:18→20:31)
[2022-07-28] MEDS: Enoxaparin 30 MG/0.3 ML Syringe SC (09:18)
[2022-07-28] MEDS: amLODIPine 10 MG Tablet PO (09:18)
[2022-07-28] MEDS: Ceftriaxone 1 GM/50 ML BAG IV (09:27)
[2022-07-28] MEDS: Ensure Plus High Protein 120 ML LIQUID PO ×3 (09:28→17:33)
[2022-07-28 09:29] LABS: Red Cell Morphology NORM C+C NORMAL (NORM C&C)
--- NOTE | 2022-07-28 11:01 | NURSING ---
Stacy and Anita can information regarding patient.
--- NOTE | 2022-07-28 12:45 | PN.HOSP_ITS ---
Subjective Subjective Follow-up pneumonia Patient seen clinical condition continues to improve. Was seen in consultation by Dr. Pettit with pulmonary medicine is noted recommendations reviewed. Case was also discussed with patient and her daughter patient is agreeable to being discharged to a fpc facility when medically ready given how physically deconditioned she is Objective Data Objective Data Vital Signs: Vital Signs Temp Pulse Resp BP Pulse Ox O2 Del Method O2 Flow Rate 98.4 F 77 20 H 164/75 H 94 Nasal Cannula 3 07/28/22 09:10 07/28/22 11:10 07/28/22 11:10 07/28/22 09:10 07/28/22 09:10 07/28/22 09:10 07/28/22 09:10 FiO2 35 07/26/22 23:02 Oxygen Flow Rate (L/min) 3 Oxygen Delivery Method Nasal Cannula Weight: 64.8 kg Body Mass Index (BMI) 23.8 Intake & Output: Intake and Output for Last 24 Hours 07/26/22 07/27/22 07/28/22 23:59 23:59 23:59 Intake Total 1305 / 1305 845 / 965 290 / 290 Output Total 1000 / 1000 750 / 1200 600 / 600 Balance 305 / 305 95 / -235 -310 / -310 Lab / Micro Data Result Diagrams: 07/28/22 06:33 07/28/22 06:33 Labs: Laboratory Results - last 24 hr 07/28/22 06:33: WBC 10.3, RBC 3.92 L, Hgb 11.9 L, Hct 37.7, MCV 96.2, MCH 30.4, MCHC 31.6 L, RDW Std Deviation 50.1 H, RDW Coeff of Tom 13.9, Plt Count 331, MPV 8.8, Neut % (Auto) Not Reportable, Absolute Neuts (auto) 5.9, Absolute Lymphs (auto) 0.93, Total Counted 100, Neutrophils % (Manual) 57, Lymphocytes % (Manual) 9 L, Monocytes % (Manual) 7, Metamyelocytes % 10 H, Myelocytes % 17 H, Diff Path Review May foll, Platelet Estimate ADEQUATE, RBC Morphology NORM C+C 07/28/22 06:33: Sodium 139, Potassium 3.8, Chloride 107, Carbon Dioxide 23.0, Anion Gap 9, BUN 41 H, Creatinine 1.16 H, Estim Creat Clear Calc 32.49, Est GFR (MDRD) Af Amer 57 L, Est GFR (MDRD) Non-Af 47 L, BUN/Creatinine Ratio 35.3 H, Glucose 109 H, Calcium 8.8, Phosphorus 2.0 L, Magnesium 2.2 Micro: Microbiology 07/25/22 01:14 Urine, Clean Catch Streptococcus pneumoniae Antigen (M - Final Streptococcus pneumonia Ag 07/25/22 01:14 Urine, Clean Catch Legionella Antigen - Final 07/24/22 16:20 Mucosa - Nasopharyngeal Respiratory Panel (PCR) - Final 07/24/22 12:45 Nasal Secretion SARS-CoV-2 & FLU Antigen (Rapid) - Final Radiography Diagnostic Testing: Radiology Impression Chest CT 07/27/22 13:14 IMPRESSION: Poorly-defined pleural-based opacification in the right upper lobe with air bronchograms. This could represent an infiltrate perhaps due to aspiration, but in a patient with known lymphoma, a metastatic lesion needs to be excluded. Suspicious 1.5 x 1.20 cm pleural-based nodule in the medial superior right lower lobe concerning for metastasis Mildly hyperexpanded lungs with chronic interstitial changes and bibasilar atelectasis. 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 I cannot assess for endoleak or dissection without IV contrast Borderline-enlarged mediastinal and perihilar lymph nodes measuring up to 1.22 cm in short axis dimension. These have increased in size and number since the previous study. Degenerative bony changes Electronically Signed: Lexx Luciano MD at 14:24 EST , Rhythm Strip Rhythm Strip: Sinus Rhythm Rate: 83 Ectopy: PVC(s) Physical Exam Narrative GENERAL: cooperative but appears ill looking HEENT: Atraumatic; normocephalic EYES; Anicteric, Normal Conjunctiva NECK; supple, normal thyroid, RESPIRATORY: Diminished to auscultation CARDIOVASCULAR: Regular S1 S2, GI: soft, normoactive bowel sounds, : No Renal angle tenderness; EXTREMITIES: No edema, no clubbing, MUSCULOSKELETAL: no muscle wasting NEURO: Awake; no lateralizing signs. SKIN: No Rash PSYCH; Flat affect Assessment & Plan Assessment/Plan (1) Pneumonia: (2) Hypoxia: PLAN: Plan Patient is an 82-year-old lady admitted with shortness of breath imaging branden dies obtained on admission did show New opacity in the right upper lobe suggestive of a pneumonic infiltration.. Admitted to a monitored bed for subsequent management 1. Acute hypoxia secondary to combination of COPD and pneumonia ? Patient was placed on BiPAP admitted to a monitored bed BiPAP has since been weand off -07/26/2022; Patient seen still requiring supplemental oxygen currently 5 L/min flow to maintain adequate saturation. Patient urine antigen test came back positive for streptococcal pneumonia. -07/27/2022; Patient seen still remains significantly hypoxic. Order CT of the chest for further evaluation. Case was discussed with patient's daughter who did express concern about possible mold in the house. Also requested consultation with pulmonary medicine consult has been placed -07/28/2022 patient seen clinical condition continues to improve. Was seen in consultation by Dr. Pettit with pulmonary medicine is noted recommendations reviewed. Patient down to 3 L flow per minute oxygen 2. Pneumonia pneumonia with streptococcal pneumonia - Suspected to be secondary to streptococcal pneumonia, Blood and sputum cultures sent. Patient placed on Rocephin and Zithromax and placed on oxygen titrated to keep Pulse Ox greater than 90 ? 07/26/2022; patient tested positive for streptococcal pneumonia antigen 3. COPD with acute exacerbation ? Patient was managed with noninvasive ventilation as stated above in addition to systemic steroid and bronchodilator treatment 4. Essential hypertension ? Patient blood pressure controlled on amlodipine, labetalol and lisinopril did continue 5. GERD ? Patient is on omeprazole substituted with Protonix in the hospital 6. Obstructive sleep apnea ? 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 Renal artery stenosis ? With previous PCI currently stable 1. Previous history of aortic dissection ? Status post intervention which he states 9. History of diffuse large cell lymphoma - currently in remission 10. DVT prophylaxis ? SC Lovenox 11. Physical deconditioning - Requested for PT OT eval and social media strategist to assist with discharge planning Time spent in the patient's overall evaluation,decision-making process, review of diagnostic data, adjustment of management, discussion with other providers, nursing nursing and ancillary staff involved in patient's care documentation, 38 Minutes Charges/Coding Visit Charges Inpatient E&M: 63757 Subs Hosp L2
--- NOTE | 2022-07-28 15:09 | CASEMGMT ---
KAT Note KAT met with patient and introduced herself and role as [facility] Active Directory Engineer. KAT inquired about patient's plan for discharge. Patient was alert and sitting in her chair and participated in conversation. Patient stated she talked to her family about SNF and was interested in [facility] TCU. KAT explained TCU admission's staff would need to be contacted to verify bed availability. KAT provided patient with a list of SNFs in [facility] in network with patient's insurance. Patient was receptive but explained she would need time to review the list to select her second choice as TCU was the only SNF she discussed with her family. KAT will continue to follow. KAT Roberts left for admissions staff of TCU to determine bed availability. Plan: SNF pending acceptance and precert, first choice TCU Yen TEJEDA, MATHEUS
[2022-07-28] MEDS: Acetaminophen 325 MG Tablet 650 MG PO (20:26)
[2022-07-28] MEDS: oxyCODONE 5 MG Tablet PO (20:26)
[2022-07-28] MEDS: cycloBENZAPRine HCl 10 MG Tablet PO (20:27)
[2022-07-28] MEDS: MELATONIN 3 MG TABLET PO (20:27)
[2022-07-28] MEDS: 0.9% Saline Lock 10 ML Syringe IV (20:28)
[2022-07-29] VITALS (16 sets, daily range): BP systolic 142–180; BP diastolic 73–86; PULSE 58–79; RESP 16–20; TEMP 36.4–36.9; O2SAT 93–97
[2022-07-29] MEDS: Methylcellulose 2 GM Bottle PO (05:11)
[2022-07-29] MEDS: hydrALAZINE 50 MG Tablet 100 MG PO ×4 (05:11→23:15)
[2022-07-29] MEDS: 0.9% Saline Lock 10 ML Syringe IV ×2 (05:12→20:23)
[2022-07-29] MEDS: Labetalol 100 MG Tablet 300 MG PO ×3 (05:12→20:24)
[2022-07-29] MEDS: cloNIDine HCl 0.1 MG Tablet 0.3 MG PO ×3 (05:12→20:24)
[2022-07-29] MEDS: Ipratropium/Albuterol Sulfate 3 ML AMPUL.NEB INHALATION ×4 (07:15→20:18)
[2022-07-29 07:33] LABS: Hematocrit 36.2 % (37-47); Hemoglobin 11.5 g/dL (12.0-15.0); Mean Corp Hgb Conc 31.8 g/dL (32-36); Mean Corpuscular Hgb 30.7 pg (27.0-32.0); Mean Corpuscular Volume 96.5 fL (81-99); Mean Platelet Vol. 8.8 fl (6.2-12.0); POSITIVE COUNT YES; POSITIVE MORPHOLOGY YES; Platelet Count 349 K/mm3 (150-450); RBC Distribution Width CV 13.8 % (11.6-14.6); RBC Distribution Width SD 49.1 fl (35.1-43.9); Red Blood Count 3.75 M/mm3 (4.2-5.4); White Blood Count 13.8 K/mm3 (4.4-11.0)
--- NOTE | 2022-07-29 07:38 | PN.CC_ITS ---
Assessment & Plan Assessment/Plan (1) Pneumonia: (2) Hypoxia: PLAN: Plan RECOMMENDATIONS: 1. Continue ceftriaxone as ordered. 2. Continue scheduled bronchodilators and steroids. 3. Wean supplemental oxygen to maintain saturations at or above 90%. 4. Encourage incentive spirometer use and mobilize patient as tolerated. 5. Perform walking oximetry prior to consideration for discharge home. 6. Recommend follow-up chest imaging in 6 to 8 weeks after completion of antibiotic treatment course. 7. Follow-up in the pulmonary medicine clinic within 2 weeks of discharge. IMPRESSIONS: 1. Shortness of breath and hypoxemia secondary to pneumococcal pneumonia The patient has a known history of mild obstructive lung disease, but does not have a supplemental oxygen requirement at her baseline. Her chest imaging did demonstrate a right upper lobe infiltrate with a positive streptococcal urinary antigen. The patient has been maintained on antimicrobials along with bronchodilators and steroids. She is clinically improving, currently only requiring 3 L/min of supplemental oxygen. I would not change any medical therapy at this time. I would, however, recommend follow-up chest imaging be completed 6 to 8 weeks post completion of her antibiotic treatment course. 2. History of obstructive sleep apnea Continue nocturnal Pap therapy per home regimen. 3. Hypertension/hyperlipidemia/history of diffuse large B-cell lymphoma in remission/GERD/anxiety Complicates care, management, recovery and prognosis. Continue home medications as indicated. This note was generated with [employer] dictation software. It may contain incorrect words, spelling, and punctuation that were not noted in checking the note before signing. Subjective Subjective The patient was seen and examined at the bedside this morning. Events from the last 24 hours have been reviewed. The patient is currently afebrile, he modynamically stable and maintaining appropriate oxygen saturations on 3 L/min via nasal cannula. Overall, the patient feels much improved from a respiratory perspective. Objective Data Objective Data The patient's most recent lab work, culture data and imaging studies have all been personally reviewed. Urinary antigen for Streptococcus pneumonia was positive on July 25. Vital Signs: Vital Signs Temp Pulse Resp BP Pulse Ox O2 Del Method O2 Flow Rate 98.5 F 61 20 H 165/79 H 96 CPAP 3 07/29/22 05:09 07/29/22 05:11 07/29/22 05:09 07/29/22 05:09 07/29/22 05:09 07/29/22 05:09 07/29/22 05:09 FiO2 35 07/26/22 23:02 Oxygen Flow Rate (L/min) 3 Oxygen Delivery Method CPAP Weight: 143 lb 4.807 oz Body Mass Index (BMI) 23.8 Intake & Output: Intake and Output for Last 24 Hours 07/27/22 07/28/22 07/29/22 23:59 23:59 23:59 Intake Total 845 / 965 1210 / 1210 Output Total 750 / 1200 1350 / 1350 Balance 95 / -235 -140 / -140 Lab / Micro Data Attestation: I reviewed the patient's lab results. Result Diagrams: 07/29/22 06:52 07/28/22 06:33 Labs: Laboratory Results - last 24 hr 07/28/22 06:33: WBC 10.3, RBC 3.92 L, Hgb 11.9 L, Hct 37.7, MCV 96.2, MCH 30.4, MCHC 31.6 L, RDW Std Deviation 50.1 H, RDW Coeff of Tom 13.9, Plt Count 331, MPV 8.8, Neut % (Auto) Not Reportable, Absolute Neuts (auto) 5.9, Absolute Lymphs (auto) 0.93, Total Counted 100, Neutrophils % (Manual) 57, Lymphocytes % (Manual) 9 L, Monocytes % (Manual) 7, Metamyelocytes % 10 H, Myelocytes % 17 H, Diff Path Review November, Platelet Estimate ADEQUATE, RBC Morphology NORM C+C 07/28/22 06:33: Sodium 139, Potassium 3.8, Chloride 107, Carbon Dioxide 23.0, Anion Gap 9, BUN 41 H, Creatinine 1.16 H, Estim Creat Clear Calc 32.49, Est GFR (MDRD) Af Amer 57 L, Est GFR (MDRD) Non-Af 47 L, BUN/Creatinine Ratio 35.3 H, Glucose 109 H, Calcium 8.8, Phosphorus 2.0 L, Magnesium 2.2 Micro: Microbiology 07/25/22 01:14 Urine, Clean Catch Streptococcus pneumoniae Antigen (M - Final Streptococcus pneumonia Ag 07/25/22 01:14 Urine, Clean Catch Legionella Antigen - Final 07/24/22 16:20 Mucosa - Nasopharyngeal Respiratory Panel (PCR) - Final 07/24/22 12:45 Nasal Secretion SARS-CoV-2 & FLU Antigen (Rapid) - Final Rhythm Strip Rhythm Strip: Sinus Rhythm Rate: 83 Ectopy: PVC(s) Physical Exam Const alert, oriented x3 and no apparent distress General Appearance: cooperative HEENT normocephalic and head/scalp atraumatic Eyes PERRL, EOMs intact bilaterally and conjunctivae normal Neck supple General: trachea midline Chest inspection of chest normal Resp normal respiratory effort Auscultation: diminished lung sounds; Negative for rales, rhonchi or wheezes Cardio regular rate and regular rhythm GI normal to inspection, nondistended, normoactive bowel sounds Extremity no clubbing, cyanosis or edema Skin no rashes or lesions noted Neuro oriented x3, CN's II-XII intact bilaterally, moves all extremities and no focal motor deficits Psych cooperative and affect normal Charges/Coding Visit Charges Inpatient E&M: 80958 Subs Hosp L2
[2022-07-29 07:52] LABS: Differential Indicated MANUAL DIFF
--- NOTE | 2022-07-29 07:52 | PN.HOSP_ITS ---
Subjective Subjective Follow-up pneumonia Patient seen continues to improve clinically oxygen requirement down to 2 L/min flow rate WBC count remains elevated Objective Data Objective Data Vital Signs: Vital Signs Temp Pulse Resp BP Pulse Ox O2 Del Method O2 Flow Rate 98.5 F 61 20 H 165/79 H 96 CPAP 3 07/29/22 05:09 07/29/22 05:11 07/29/22 05:09 07/29/22 05:09 07/29/22 05:09 07/29/22 05:09 07/29/22 05:09 FiO2 35 07/26/22 23:02 Oxygen Flow Rate (L/min) 3 Oxygen Delivery Method CPAP Weight: 65 kg Body Mass Index (BMI) 23.8 Intake & Output: Intake and Output for Last 24 Hours 07/27/22 07/28/22 07/29/22 23:59 23:59 23:59 Intake Total 845 / 965 1210 / 1210 Output Total 750 / 1200 1350 / 1350 Balance 95 / -235 -140 / -140 Lab / Micro Data Result Diagrams: 07/29/22 06:52 07/29/22 06:52 Labs: Laboratory Results - last 24 hr 07/28/22 06:33: WBC 10.3, RBC 3.92 L, Hgb 11.9 L, Hct 37.7, MCV 96.2, MCH 30.4, MCHC 31.6 L, RDW Std Deviation 50.1 H, RDW Coeff of Tom 13.9, Plt Count 331, MPV 8.8, Neut % (Auto) Not Reportable, Absolute Neuts (auto) 5.9, Absolute Lymphs (auto) 0.93, Total Counted 100, Neutrophils % (Manual) 57, Lymphocytes % (Manual) 9 L, Monocytes % (Manual) 7, Metamyelocytes % 10 H, Myelocytes % 17 H, Diff Path Review November, Platelet Estimate ADEQUATE, RBC Morphology NORM C+C 07/28/22 06:33: Sodium 139, Potassium 3.8, Chloride 107, Carbon Dioxide 23.0, Anion Gap 9, BUN 41 H, Creatinine 1.16 H, Estim Creat Clear Calc 32.49, Est GFR (MDRD) Af Amer 57 L, Est GFR (MDRD) Non-Af 47 L, BUN/Creatinine Ratio 35.3 H, Glucose 109 H, Calcium 8.8, Phosphorus 2.0 L, Magnesium 2.2 07/29/22 06:52: WBC 13.8 H, RBC 3.75 L, Hgb 11.5 L, Hct 36.2 L, MCV 96.5, MCH 30.7, MCHC 31.8 L, RDW Std Deviation 49.1 H, RDW Coeff of Tom 13.8, Plt Count 349, MPV 8.8, Neut % (Auto) Not Reportable Micro: Microbiology 07/25/22 01:14 Urine, Clean Catch Streptococcus pneumoniae Antigen (M - Final Streptococcus pneumonia Ag 07/25/22 01:14 Urine, Clean Catch Legionella Antigen - Final 07/24/22 16:20 Mucosa - Nasopharyngeal Respiratory Panel (PCR) - Final 07/24/22 12:45 Nasal Secretion SARS-CoV-2 & FLU Antigen (Rapid) - Final Rhythm Strip Rhythm Strip: Sinus Rhythm Rate: 83 Ectopy: PVC(s) Physical Exam Narrative GENERAL: cooperative but appears ill looking HEENT: Atraumatic; normocephalic EYES; Anicteric, Normal Conjunctiva NECK; supple, normal thyroid, RESPIRATORY: Diminished to auscultation CARDIOVASCULAR: Regular S1 S2, GI: soft, normoactive bowel sounds, : No Renal angle tenderness; EXTREMITIES: No edema, no clubbing, MUSCULOSKELETAL: no muscle wasting NEURO: Awake; no lateralizing signs. SKIN: No Rash PSYCH; Flat affect Assessment & Plan Assessment/Plan (1) Pneumonia: (2) Hypoxia: PLAN: Plan Patient is an 82-year-old lady admitted with shortness of breath imaging studies obtained on admission did show New opacity in the right upper lobe suggestive of a pneumonic infiltration.. Admitted to a monitored bed for subsequent management 1. Acute hypoxia secondary to combination of COPD and pneumonia ? Patient was placed on BiPAP admitted to a monitored bed BiPAP has since been weand off -07/26/2022; Patient seen still requiring supplemental oxygen currently 5 L/min flow to maintain adequate saturation. Patient urine antigen test came back positive for streptococcal pneumonia. -07/27/2022; Patient seen still remains significantly hypoxic. Order CT of the chest for further evaluation. Case was discussed with patient's daughter who did express concern about possible mold in the house. Also requested consultation with pulmonary medicine consult has been placed -07/28/2022 patient seen clinical condition continues to improve. Was seen in consultation by Dr. Pettit with pulmonary medicine is noted recommendations reviewed. Patient down to 3 L flow per minute oxygen -07/29/2022 Patient seen continues to improve clinically oxygen requirement down to 2 L/min flow rate WBC count remains elevated 2. Pneumonia pneumonia with streptococcal pneumonia - Suspected to be secondary to streptococcal pneumonia, Blood and sputum cultures sent. Patient placed on Rocephin and Zithromax and placed on oxygen titrated to keep Pulse Ox greater than 90 ? 07/26/2022; patient tested positive for streptococcal pneumonia antigen 3. COPD with acute exacerbation ? Patient was managed with noninvasive ventilation as stated above in addition to systemic steroid and bronchodilator treatment 4. Essential hypertension ? Patient blood pressure controlled on amlodipine, labetalol and lisinopril did continue 5. GERD ? Patient is on omeprazole substituted with Protonix in the hospital 6. Obstructive sleep apnea ? 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 Renal artery stenosis ? With previous PCI currently stable 1. Previous history of aortic dissection ? Status post intervention with a stent in the thoracic aorta 9. History of diffuse large cell lymphoma - currently in remission; did discuss CT findings (Poorly-defined pleural-based opacification in the right upper lobe with air bronchograms. This could represent an infiltrate perhaps due to aspiration,but in a patient with known lymphoma, a metastatic lesion needs to beexcluded. Suspicious 1.5 x 1.20 cm pleural-based nodule in the medial superior right lower lobe concerning for metastasis)with patient's daughter and the need to follow-up for further work-up as outpatient 10. DVT prophylaxis ? SC Lovenox 11. Physical deconditioning - Requested for PT OT eval and nursing home social worker to assist with discharge planning Time spent in the patient's overall evaluation,decision-making process, review of diagnostic data, adjustment of management, discussion with other providers, nursing nursing and ancillary staff involved in patient's care documentation, 38 Minutes Charges/Coding Visit Charges Inpatient E&M: 74577 Subs Hosp L2
[2022-07-29 07:57] LABS: Anion Gap 8 (5-15); BUN 37 mg/dL (7-18); BUN/Creat Ratio 35.9 RATIO (10-20); Calcium,Total 8.2 mg/dL (8.5-10.1); Chloride 105 mmol/L (98-107); Creatinine, Serum 1.03 mg/dL (0.55-1.02); EST Glomerular Filtration Rate 54 mL/min (>60); Est Glom Filt Rate - Afr Amer 66 mL/min (>60); Estimated Creatinine Clearance 36.59 ml/min; Glucose 145 mg/dL (74-106); Potassium 3.9 mmol/L (3.5-5.1); Sodium Level 135 mmol/L (136-145)
[2022-07-29] MEDS: Aspirin E.C. 81 MG Tablet PO (08:34)
[2022-07-29] MEDS: Docusate Sodium 100 MG Capsule PO ×4 (08:35→20:24)
[2022-07-29] MEDS: Ensure Plus High Protein 120 ML LIQUID PO ×3 (08:35→17:07)
[2022-07-29] MEDS: guaiFENesin 1,200 MG Tablet 1200 MG PO ×2 (08:35→20:24)
[2022-07-29] MEDS: Enoxaparin 30 MG/0.3 ML Syringe SC (08:35)
[2022-07-29] MEDS: Pantoprazole Sodium 20 MG Tablet PO (08:36)
[2022-07-29] MEDS: amLODIPine 10 MG Tablet PO (08:36)
[2022-07-29] MEDS: Lisinopril 10 MG Tablet PO (08:37)
[2022-07-29] MEDS: Ceftriaxone 1 GM/50 ML BAG IV (10:06)
[2022-07-29 10:16] LABS: Lymphocyte 15 % (19-41); Metamyelocyte 2 % (0-1); Monocyte 10 % (0-10); Myelocyte 9 % (0-0); Neutrophil-Segmented 64 % (47-70); Total Cells Counted 100 (MANUAL DIFF)
[2022-07-29 10:18] LABS: Platelet Estimate ADEQUATE (ADEQ); Red Cell Morphology NORM C+C NORMAL (NORM C&C)
[2022-07-29 10:19] LABS: Absolute Neutrophil Count 8.8 X10^3/uL (2.0-7.7)
[2022-07-29 10:20] LABS: Absolute Lymphocyte Count 2.07 X10^3/uL (0.83-4.51)
[2022-07-29] MEDS: oxyCODONE 5 MG Tablet PO (20:24)
[2022-07-29] MEDS: MELATONIN 3 MG TABLET PO (20:24)
[2022-07-29] MEDS: Acetaminophen 325 MG Tablet 650 MG PO (20:25)
[2022-07-29] MEDS: cycloBENZAPRine HCl 10 MG Tablet PO (20:25)
[2022-07-30] VITALS (19 sets, daily range): BP systolic 118–179; BP diastolic 75–86; PULSE 60–82; RESP 16–21; TEMP 36.5–36.8; O2SAT 87–95
[2022-07-30] MEDS: Methylcellulose 2 GM Bottle PO ×2 (05:00→20:38)
[2022-07-30] MEDS: cloNIDine HCl 0.1 MG Tablet 0.3 MG PO ×3 (05:00→20:39)
[2022-07-30] MEDS: hydrALAZINE 50 MG Tablet 100 MG PO ×4 (05:00→23:22)
[2022-07-30] MEDS: Labetalol 100 MG Tablet 300 MG PO ×3 (05:00→20:39)
[2022-07-30] MEDS: 0.9% Saline Lock 10 ML Syringe IV (05:00)
[2022-07-30 06:37] LABS: Hematocrit 36.3 % (37-47); Hemoglobin 11.8 g/dL (12.0-15.0); Mean Corp Hgb Conc 32.5 g/dL (32-36); Mean Corpuscular Hgb 31.1 pg (27.0-32.0); Mean Corpuscular Volume 95.5 fL (81-99); Mean Platelet Vol. 8.8 fl (6.2-12.0); POSITIVE COUNT YES; POSITIVE MORPHOLOGY YES; Platelet Count 378 K/mm3 (150-450); RBC Distribution Width CV 13.8 % (11.6-14.6); White Blood Count 16.7 K/mm3 (4.4-11.0)
[2022-07-30 06:53] LABS: Differential Indicated MANUAL DIFF
[2022-07-30 07:02] LABS: Anion Gap 7 (5-15); BUN 36 mg/dL (7-18); BUN/Creat Ratio 30.8 RATIO (10-20); Calcium,Total 8.5 mg/dL (8.5-10.1); Chloride 107 mmol/L (98-107); Creatinine, Serum 1.17 mg/dL (0.55-1.02); EST Glomerular Filtration Rate 47 mL/min (>60); Est Glom Filt Rate - Afr Amer 57 mL/min (>60); Estimated Creatinine Clearance 32.21 ml/min; Glucose 148 mg/dL (74-106); Platelet Estimate ADEQUATE (ADEQ); Potassium 4.1 mmol/L (3.5-5.1); Red Cell Morphology NORM C+C NORMAL (NORM C&C); Sodium Level 137 mmol/L (136-145)
[2022-07-30 07:04] LABS: Absolute Lymphocyte Count 2.01 X10^3/uL (0.83-4.51); Absolute Neutrophil Count 10.9 X10^3/uL (2.0-7.7); Lymphocyte 12 % (19-41); Metamyelocyte 1 % (0-1); Monocyte 9 % (0-10); Myelocyte 11 % (0-0); Neutrophil-Band 3 % (0-5); Neutrophil-Segmented 62 % (47-70); Promyelocyte 1 % (0-0); Total Cells Counted 100 (MANUAL DIFF)
[2022-07-30] MEDS: Ipratropium/Albuterol Sulfate 3 ML AMPUL.NEB INHALATION ×4 (07:19→19:43)
--- NOTE | 2022-07-30 08:28 | PCM.PN.INT ---
Assessment & Plan Assessment/Plan (1) Pneumonia: (2) Hypoxia: PLAN: Plan RECOMMENDATIONS: 1. Continue ceftriaxone as ordered. Complete a 7 to 10-day course of antibiotics 2. Continue scheduled bronchodilators. Transition to p.o. prednisone and wean over 12 to 14 days 3. Obtain a walking oximetry today 4. Encourage incentive spirometer use and mobilize patient as tolerated. 5. Recommend follow-up chest imaging in 6 to 8 weeks after completion of antibiotic treatment course. 6. Potential discharge. Follow-up in the pulmonary medicine clinic within 2 weeks of discharge. IMPRESSIONS: 1. Acute hypoxic respiratory insufficiency secondary to pneumococcal pneumonia The patient has a known history of mild obstructive lung disease, but does not have a supplemental oxygen requirement at her baseline. Her chest imaging did demonstrate a right upper lobe infiltrate with a positive streptococcal urinary antigen. The patient has been maintained on antimicrobials along with bronchodilators. Transition to p.o. prednisone and wean over 12 to 14 days. Patient likely requires a 7 to 10-day course of antibiotics in total given dense infiltrate. I would, however, recommend follow-up chest imaging be completed 6 to 8 weeks post completion of her antibiotic treatment course. 2. History of obstructive sleep apnea Continue nocturnal Pap therapy per home regimen. 3. Hypertension/hyperlipidemia/history of diffuse large B-cell lymphoma in remission/GERD/anxiety Complicates care, management, recovery and prognosis. Continue home medications as indicated. This note was generated with [employer] dictation software. It may contain incorrect words, spelling, and punctuation that were not noted in checking the note before signing. Subjective Subjective Patient feels much improved compared to previous. Patient has been able to be weaned to room air overnight and did not require oxygen bleed into her BiPAP. Objective Data Objective Data Vital Signs: Vital Signs Temp Pulse Resp BP Pulse Ox O2 Del Method O2 Flow Rate 36.5 C L 71 18 179/81 H 95 Room Air 1 07/30/22 04:50 07/30/22 07:35 07/30/22 07:35 07/30/22 04:50 07/30/22 08:11 07/30/22 08:11 07/29/22 20:25 FiO2 35 07/26/22 23:02 Oxygen Flow Rate (L/min) 1 Oxygen Delivery Method Room Air Weight: 64.4 kg Body Mass Index (BMI) 23.8 Intake & Output: Intake and Output for Last 24 Hours 07/28/22 07/29/22 07/30/22 23:59 23:59 23:59 Intake Total 1210 / 1210 1530 / 1530 120 / 120 Output Total 1350 / 1350 550 / 550 250 / 250 Balance -140 / -140 980 / 980 -130 / -130 Lab / Micro Data Attestation: I reviewed the patient's lab results. Result Diagrams: 07/30/22 05:55 07/30/22 05:55 Labs: Laboratory Results - last 24 hr 07/29/22 06:52: Absolute Neuts (auto) 8.8 H, Absolute Lymphs (auto) 2.07, Total Counted 100, Neutrophils % (Manual) 64, Lymphocytes % (Manual) 15 L, Monocytes % (Manual) 10, Metamyelocytes % 2 H, Myelocytes % 9 H, Diff Path Review May mehran, Platelet Estimate ADEQUATE, RBC Morphology NORM C+C 07/30/22 05:55: WBC 16.7 H, RBC 3.80 L, Hgb 11.8 L, Hct 36.3 L, MCV 95.5, MCH 31.1, MCHC 32.5, RDW Std Deviation 49.0 H, RDW Coeff of Otm 13.8, Plt Count 378, MPV 8.8, Neut % (Auto) Not Reportable, Absolute Neuts (auto) 10.9 H, Absolute Lymphs (auto) 2.01, Total Counted 100, Neutrophils % (Manual) 62, Band Neutrophils % 3, Lymphocytes % (Manual) 12 L, Monocytes % (Manual) 9, Metamyelocytes % 1, Myelocytes % 11 H, Promyelocytes % 1 H, Diff Path Review May mehran, Platelet Estimate ADEQUATE, RBC Morphology NORM C+C 07/30/22 05:55: Sodium 137, Potassium 4.1, Chloride 107, Carbon Dioxide 23.0, Anion Gap 7, BUN 36 H, Creatinine 1.17 H, Estim Creat Clear Calc 32.21, Est GFR (MDRD) Af Amer 57 L, Est GFR (MDRD) Non-Af 47 L, BUN/Creatinine Ratio 30.8 H, Glucose 148 H, Calcium 8.5 Micro: Microbiology 07/25/22 01:14 Urine, Clean Catch Streptococcus pneumoniae Antigen (M - Final Streptococcus pneumonia Ag 07/25/22 01:14 Urine, Clean Catch Legionella Antigen - Final 07/24/22 16:20 Mucosa - Nasopharyngeal Respiratory Panel (PCR) - Final 07/24/22 12:45 Nasal Secretion SARS-CoV-2 & FLU Antigen (Rapid) - Final Rhythm Strip Rhythm Strip: Sinus Rhythm Rate: 60 Ectopy: None Physical Exam Const alert, oriented x3 and no apparent distress General Appearance: cooperative HEENT normocephalic and head/scalp atraumatic HEENT Narrative: On room air during my evaluation. No conversational dyspnea. Eyes PERRL, EOMs intact bilaterally and conjunctivae normal Neck supple General: trachea midline Chest inspection of chest normal Resp normal respiratory effort Auscultation: diminished lung sounds; Negative for rales, rhonchi or wheezes Cardio regular rate, regular rhythm, S1 normal heart sound, S2 normal heart sound, no murmurs, no rub and no gallops GI normal to inspection, nondistended, normoactive bowel sounds Extremity no clubbing, cyanosis or edema Skin no rashes or lesions noted Neuro oriented x3, CN's II-XII intact bilaterally, moves all extremities and no focal motor deficits Psych cooperative and affect normal Charges/Coding Visit Charges Inpatient E&M: 17309 Subs Hosp L2
[2022-07-30] MEDS: Enoxaparin 40 MG/0.4 ML Syringe SC (09:12)
[2022-07-30] MEDS: Pantoprazole Sodium 20 MG Tablet PO (09:13)
[2022-07-30] MEDS: guaiFENesin 1,200 MG Tablet 1200 MG PO ×2 (09:13→20:39)
[2022-07-30] MEDS: Docusate Sodium 100 MG Capsule PO ×4 (09:13→20:38)
[2022-07-30] MEDS: amLODIPine 10 MG Tablet PO (09:13)
[2022-07-30] MEDS: Aspirin E.C. 81 MG Tablet PO (09:13)
[2022-07-30] MEDS: predniSONE 20 MG Tablet 40 MG PO (09:13)
[2022-07-30] MEDS: Lisinopril 10 MG Tablet PO (09:13)
[2022-07-30] MEDS: Ceftriaxone 1 GM/50 ML BAG IV (09:20)
--- NOTE | 2022-07-30 11:49 | PN.HOSP_ITS ---
Subjective Subjective Doing well, no issues overnight, doing better than when she came in. Objective Data Objective Data Vital Signs: Vital Signs Temp Pulse Resp BP Pulse Ox O2 Del Method O2 Flow Rate 97.9 F 82 19 H 141/75 H 92 Room Air 2 07/30/22 09:00 07/30/22 10:58 07/30/22 10:58 07/30/22 09:00 07/30/22 09:00 07/30/22 09:00 07/30/22 08:28 FiO2 35 07/26/22 23:02 Oxygen Flow Rate (L/min) [ 2 AMBULATING with Oxygen #2] Oxygen Flow Rate (L/min) [ 2 AMBULATING with Oxygen #1] Oxygen Flow Rate (L/min) 1 Oxygen Delivery Method Room Air Weight: 141 lb 15.643 oz Body Mass Index (BMI) 23.8 Intake & Output: Intake and Output for Last 24 Hours 07/29/22 07/30/22 07/31/22 03:59 03:59 03:59 Intake Total 1090 / 1090 1530 / 1530 170 / 170 Output Total 900 / 900 550 / 550 250 / 250 Balance 190 / 190 980 / 980 -80 / -80 Lab / Micro Data Result Diagrams: 07/30/22 05:55 07/30/22 05:55 Labs: Laboratory Results - last 24 hr 07/30/22 05:55: WBC 16.7 H, RBC 3.80 L, Hgb 11.8 L, Hct 36.3 L, MCV 95.5, MCH 31.1, MCHC 32.5, RDW Std Deviation 49.0 H, RDW Coeff of Tom 13.8, Plt Count 378, MPV 8.8, Neut % (Auto) Not Reportable, Absolute Neuts (auto) 10.9 H, Absolute Lymphs (auto) 2.01, Total Counted 100, Neutrophils % (Manual) 62, Band Neutrophils % 3, Lymphocytes % (Manual) 12 L, Monocytes % (Manual) 9, Metamyelocytes % 1, Myelocytes % 11 H, Promyelocytes % 1 H, Diff Path Review November, Platelet Estimate ADEQUATE, RBC Morphology NORM C+C 07/30/22 05:55: Sodium 137, Potassium 4.1, Chloride 107, Carbon Dioxide 23.0, Anion Gap 7, BUN 36 H, Creatinine 1.17 H, Estim Creat Clear Calc 32.21, Est GFR (MDRD) Af Amer 57 L, Est GFR (MDRD) Non-Af 47 L, BUN/Creatinine Ratio 30.8 H, G lucose 148 H, Calcium 8.5 Micro: Microbiology 07/25/22 01:14 Urine, Clean Catch Streptococcus pneumoniae Antigen (M - F inal Streptococcus pneumonia Ag 07/25/22 01:14 Urine, Clean Catch Legionella Antigen - Final 07/24/22 16:20 Mucosa - Nasopharyngeal Respiratory Panel (PCR) - Final 07/24/22 12:45 Nasal Secretion SARS-CoV-2 & FLU Antigen (Rapid) - Final Rhythm Strip Rhythm Strip: Sinus Rhythm Rate: 60 Ectopy: None Physical Exam Narrative General: Alert, Oriented x3, Cooperative, No apparent distress HEENT: Atraumatic, PERRLA, EOMI, Normocephalic Oral: Moist Mucosa Neck: Supple, No JVD Lungs: Diminished, Normal air movement, No rhonchi, No wheeze, No rales Cardiovascular: Regular rate, Regular Rhythm, Normal S1, Normal S2, No murmurs Abdomen: Soft, Non Tender, Non-Distended, No Hepato-splenomegaly Extremities: No edema, Capillary Refill Less than 3 Seconds Skin: No rashes, No breakdown Musculoskeletal: No Tenderness to Palpation of Joints or Extremities Neurological: Cranial nerves II-XII grossly intact, Motor Exam 5/5 strength throughout, Sensory exam intact to light touch and pain Psych/Mental Status: Normal Affect, Appropriate Assessment & Plan Assessment/Plan (1) Pneumonia: (2) Hypoxia: PLAN: Plan 1. Acute hypoxia secondary to combination of COPD exacerbation and streptococcal pneumonia/DARRIUS ? Patient was placed on BiPAP admitted to a monitored bed BiPAP has since been weand off -07/26/2022; Patient seen still requiring supplemental oxygen currently 5 L/min flow to maintain adequate saturation. Patient urine antigen test came back positive for streptococcal pneumonia. -07/27/2022; Patient seen still remains significantly hypoxic. Order CT of the chest for further evaluation. Case was discussed with patient's daughter who did express concern about possible mold in the house. Also requested consultation with pulmonary medicine consult has been placed -07/28/2022 patient seen clinical condition continues to improve. Was seen in consultation by Dr. Pettit with pulmonary medicine is noted recommendations reviewed. Patient down to 3 L flow per minute oxygen -07/29/2022 Patient seen continues to improve clinically oxygen requirement down to 2 L/min flow rate WBC count remains elevated 07/30/2022: Continue with antibiotics for streptococcal pneumonia, she is current ly on room air at rest and needs 2 L with ambulation, continue with prednisone appreciate pulmonology's input. Continue with her BiPAP. Patient by PT/OT, possible discharge to SNF pending pre-CERT 2. HTN/renal artery stenosis/history of aortic dissection ? She did have a previous PCI to her renal artery as well as repair of her aorta ? Continue with her blood pressure medications 3. GERD ? Stable ? Continue with PPI 4. History of VTE ? She did have a DVT in her right lower extremity, she has completed Elase and 5. History of diffuse large cell lymphoma - currently in remission; did discuss CT findings (Poorly-defined pleural-based opacification in the right upper lobe with air bronchograms. This could represent an infiltrate perhaps due to aspiration,but in a patient with known l ymphoma, a metastatic lesion needs to beexcluded. Suspicious 1.5 x 1.20 cm pleural-based nodule in the medial superior right lower lobe concerning for metastasis) with patient's daughter and the need to follow-up for further work- up as outpatient DVT: Link Charges/Coding Visit Charges Inpatient E&M: 50081 Subs Hosp L2
[2022-07-30] MEDS: Ensure Plus High Protein 120 ML LIQUID PO ×2 (13:16→19:00)
[2022-07-30 13:35] LABS: Pathologist Review Reviewed
--- NOTE | 2022-07-30 13:35 | CASEMGMT ---
SW was notified by Emilie with TCU that she will not have a bed for patient. KAT met with patient and let her know that there are no beds in TCU. Patient's next choice was [place] [facility]. KAT explained to patient that SW will make a referral to [place] [facility]. KAT also explained to patient that it is possible her insurance could deny her to go to a [place] [facility] facility. Patient verbalized understanding. Patient feels if she gets denied she will probably be okay to go home. KAT sent a referral to [place] [facility]. Gisell Brown POLL WATCHER MATHEUS
[2022-07-30 13:36] LABS: Pathologist Review Reviewed
--- NOTE | 2022-07-30 13:55 | CASEMGMT ---
Addendum entered by Gisell Brown 07/30/22 14:13: SW notified patient of TCU bed availability. Gisell JARVIS Original Note: SW received a call from Emilie and she will have a bed in TCU. KAT asked [facility] to disregard referral. SW will notify patient that TCU does have a bed for her. Plan: [facility] TCU pending insurance approval. Gisell JARVIS
[2022-07-30] MEDS: cycloBENZAPRine HCl 10 MG Tablet PO (20:42)
[2022-07-30] MEDS: oxyCODONE 5 MG Tablet PO (20:42)
[2022-07-30] MEDS: MELATONIN 3 MG TABLET PO (20:42)
[2022-07-30] MEDS: Acetaminophen 325 MG Tablet 650 MG PO (20:43)
[2022-07-31] VITALS (13 sets, daily range): BP systolic 141–173; BP diastolic 72–84; PULSE 58–75; RESP 16–18; TEMP 36.9; O2SAT 89–95
--- NOTE | 2022-07-31 00:46 | CPS ---
Pt on own cpap machine from home, Room air. No o2 needed. 93% on room air.
[2022-07-31] MEDS: hydrALAZINE 50 MG Tablet 100 MG PO ×2 (05:43→13:54)
[2022-07-31] MEDS: cloNIDine HCl 0.1 MG Tablet 0.3 MG PO ×2 (05:44→13:54)
[2022-07-31] MEDS: Labetalol 100 MG Tablet 300 MG PO ×2 (05:45→13:56)
[2022-07-31 06:44] LABS: Anion Gap 8 (5-15); BUN 39 mg/dL (7-18); BUN/Creat Ratio 32.8 RATIO (10-20); Calcium,Total 8.8 mg/dL (8.5-10.1); Chloride 106 mmol/L (98-107); Creatinine, Serum 1.19 mg/dL (0.55-1.02); EST Glomerular Filtration Rate 46 mL/min (>60); Est Glom Filt Rate - Afr Amer 56 mL/min (>60); Estimated Creatinine Clearance 31.67 ml/min; Glucose 111 mg/dL (74-106); Potassium 3.8 mmol/L (3.5-5.1); Sodium Level 138 mmol/L (136-145)
[2022-07-31] MEDS: Ipratropium/Albuterol Sulfate 3 ML AMPUL.NEB INHALATION ×2 (07:28→11:11)
--- NOTE | 2022-07-31 08:11 | PN.CC_ITS ---
Assessment & Plan Assessment/Plan (1) Pneumonia: (2) Hypoxia: PLAN: Plan RECOMMENDATIONS: 1. Continue ceftriaxone as ordered. Complete a 7 to 10-day course of antibiotics 2. Continue scheduled bronchodilators. Wean prednisone over 12 to 14 days 3. Obtain a walking oximetry today. Okay to discharge from a pulmonary perspective, with supplemental oxygen if indicated 4. Encourage incentive spirometer use and mobilize patient as tolerated. 5. Recommend follow-up chest imaging in 6 to 8 weeks after completion of antibiotic treatment course. 6. Potential discharge. Follow-up in the pulmonary medicine clinic within 2 weeks of discharge. IMPRESSIONS: 1. Acute hypoxic respiratory insufficiency secondary to pneumococcal pne umonia The patient has a known history of mild obstructive lung disease, but does not have a supplemental oxygen requirement at her baseline. Her chest imaging did demonstrate a right upper lobe infiltrate with a positive streptococcal urinary antigen. The patient has been maintained on antimicrobials along with bronchodilators. Transitioned to p.o. prednisone and wean over 12 to 14 days. Patient likely requires a 7 to 10-day course of antibiotics in total given dense infiltrate. I would, however, recommend follow-up chest imaging be completed 6 to 8 weeks post completion of her antibiotic treatment course. Patient can likely be discharged today from a pulmonary perspective, with supplemental oxygen if indicated. Cessation of oxygen can be arranged as an outpatient. 2. History of obstructive sleep apnea Continue nocturnal Pap therapy per home regimen. 3. Hypertension/hyperlipidemia/history of diffuse large B-cell lymphoma in remission/GERD/anxiety Complicates care, management, recovery and prognosis. Continue home medications as indicated. This note was generated with [employer] dictation software. It may contain incorrect words, spelling, and punctuation that were not noted in checking the note before signing. Subjective Subjective Patient did well overnight. Patient has been tolerating room air with did require 2 L/min with activity yesterday. Patient did tolerate BiPAP overnight. Patient's blood pressures have been on the higher side, but she is not reporting any headaches or focal neurologic deficits. Objective Data Objective Data Vital Signs: Vital Signs Temp Pulse Resp BP Pulse Ox O2 Del Method O2 Flow Rate 36.9 C 58 L 18 151/75 H 92 Bi-pap 2 07/31/22 07:35 07/31/22 07:35 07/31/22 07:35 07/31/22 07:35 07/31/22 07:35 07/31/22 07:35 07/30/22 08:28 FiO2 35 07/26/22 23:02 Oxygen Flow Rate (L/min) [ 2 AMBULATING with Oxygen #2] Oxygen Flow Rate (L/min) [ 2 AMBULATING with Oxygen #1] Oxygen Flow Rate (L/min) 1 Oxygen Delivery Method Bi-pap Weight: 64.2 kg Body Mass Index (BMI) 23.8 Intake & Output: Intake and Output for Last 24 Hours 07/29/22 07/30/22 07/31/22 23:59 23:59 23:59 Intake Total 1530 / 1530 1430 / 1430 Output Total 550 / 550 1100 / 1100 800 / 800 Balance 980 / 980 330 / 330 -800 / -800 Lab / Micro Data Attestation: I reviewed the patient's lab results. Result Diagrams: 07/30/22 05:55 07/31/22 05:45 Labs: Laboratory Results - last 24 hr 07/29/22 06:52: Diff Path Review Reviewed 07/30/22 05:55: Diff Path Review Reviewed 07/31/22 05:45: Sodium 138, Potassium 3.8, Chloride 106, Carbon Dioxide 24.0, Anion Gap 8, BUN 39 H, Creatinine 1.19 H, Estim Creat Clear Calc 31.67, Est GFR (MDRD) Af Amer 56 L, Est GFR (MDRD) Non-Af 46 L, BUN/Creatinine Ratio 32.8 H, Glucose 111 H, Calcium 8.8 Micro: Microbiology 07/25/22 01:14 Urine, Clean Catch Streptococcus pneumoniae Antigen (M - Final Streptococcus pneumonia Ag 07/25/22 01:14 Urine, Clean Catch Legionella Antigen - Final 07/24/22 16:20 Mucosa - Nasopharyngeal Respiratory Panel (PCR) - Final 07/24/22 12:45 Nasal Secretion SARS-CoV-2 & FLU Antigen (Rapid) - Final Rhythm Strip Rhythm Strip: Sinus Rhythm Rate: 60 Ectopy: None Physical Exam Const alert, oriented x3 and no apparent distress General Appearance: cooperative HEENT normocephalic and head/scalp atraumatic HEENT Narrative: On room air during my evaluation. No conversational dyspnea. Eyes PERRL, EOMs intact bilaterally and conjunctivae normal Neck supple General: trachea midline Chest inspection of chest normal Resp normal respiratory effort Auscultation: diminished lung sounds; Negative for rales, rhonchi or wheezes Cardio regular rate, regular rhythm, S1 normal heart sound, S2 normal heart sound, no murmurs, no rub and no gallops GI normal to inspection, nondistended, normoactive bowel sounds Extremity no clubbing, cyanosis or edema Skin no rashes or lesions noted Neuro oriented x3, CN's II-XII intact bilaterally, moves all extremities and no focal motor deficits Psych cooperative and affect normal Charges/Coding Visit Charges Inpatient E&M: 90991 Subs Hosp L2
[2022-07-31] MEDS: guaiFENesin 1,200 MG Tablet 1200 MG PO (08:23)
[2022-07-31] MEDS: Pantoprazole Sodium 20 MG Tablet PO (08:23)
[2022-07-31] MEDS: Docusate Sodium 100 MG Capsule PO ×2 (08:23→13:56)
[2022-07-31] MEDS: amLODIPine 10 MG Tablet PO (08:23)
[2022-07-31] MEDS: Aspirin E.C. 81 MG Tablet PO (08:24)
[2022-07-31] MEDS: Lisinopril 10 MG Tablet PO (08:24)
[2022-07-31] MEDS: Enoxaparin 40 MG/0.4 ML Syringe SC (08:24)
[2022-07-31] MEDS: predniSONE 20 MG Tablet 40 MG PO (08:24)
[2022-07-31 09:22] LABS: Pathologist Review Reviewed
--- NOTE | 2022-07-31 11:26 | CASEMGMT ---
Physician spoke with patient this am and patient would like to go home now. Physician told patient we will see how she does with therapy and decide. Patient walked 200' with PT at contact guard. SW went to patient's room. Patient confirmed she would prefer to go home with home health. Patient's was discharged with [facility] and she would also like [facility]. SW told her SW will check into it. SW notified Emilie in TCU to cancel referral. SW called [facility] and made a referral. SW also notified physician patient can be discharged home with home health. Await response from . Plan: d/c home with home health pending acceptance. Gisell JARVIS
--- NOTE | 2022-07-31 11:30 | DCINST_ITS ---
Discharge Instructions Diet Discharge Diet: Low fat / Low cholesterol Activity Discharge Activity: Return to Normal Activity Dressing / Incision Call your doctor if you observe: Fever of 101 or Higher, Shortness of breath, Dizziness, Fainting spells, Swelling in the ankles, Chest pain and Increased palpitations (irregular heartbeat) Follow Up Care Test Results: Test results from this visit will be discussed in further detail at your follow- up appointment, if applicable. Discharge Plan Admission Admit Date/Time: 07/24/22 15:02 Attending Provider: Froy Sanchez Primary Care Provider: Jason Chinchilla Consulting Providers: Madai Newsome ; Jareth Joseph ; Jai Pettit ; Gonzales Bradshaw ; Ramón Alarcon ; Harriet Sancehz NP ; Be Mejias Discharge Orders/Prescriptions Prescriptions: New prednisone 20 mg Tablet 40 mg PO BREAKFAST 5 Days Qty: 10 0RF cefdinir 300 mg capsule 300 mg PO BID 4 Days Qty: 8 0RF Continued biotin 10,000 mcg capsule 10,000 mcg PO TID docusate sodium 100 mg tablet 100 mg PO 4X/DAY aspirin [Adult Low Dose Aspirin] 81 mg tablet,delayed release (DR/EC) 81 mg PO DAILY labetalol 200 mg tablet 300 mg PO TID clonidine HCl 0.3 mg tablet 0.3 mg PO TID hydralazine 100 mg tablet 100 mg PO Q6H lisinopril 10 mg tablet 10 mg PO DAILY estradiol [Estrace] 0.01 % (0.1 mg/gram) cream 1 g vaginal SUWE zinc 50 mg tablet 50 mg PO DAILY cholecalciferol (vitamin D3) 50 mcg (2,000 unit) capsule 50 mcg PO DAILY ascorbate calcium (vitamin C) 500 mg tablet 500 mg PO DAILY alendronate 70 mg tablet 70 mg PO PATINO omeprazole 20 MG capsule,delayed release(DR/EC) 20 mg PO DAILY cyanocobalamin (vitamin B-12) 5,000 MCG capsule 5,000 mcg PO DAILY lorazepam 0.5 mg tablet 0.5 mg PO QHS PRN (Reason: Anxiety) 5 Days Qty: 5 0RF methylcellulose (with sugar) Powder 850 g PO BID oxycodone 5 mg tablet 5 mg PO QHS amlodipine 10 mg tablet 10 mg PO DAILY multivitamin Tablet 1 tab PO DAILY omega-3 fatty acids 1,000 mg Capsule 5,000 mg PO DAILY acetaminophen 650 mg Tablet Extended Release 650 mg PO Q8H PRN (Reason: Pain) turmeric root extract 500 mg Tablet 500 mg PO DAILY Glucosamine Chondroitin 1 tab PO/SL BID Referrals / Follow Up: Jason Chinchilla MD [Primary Care Provider] - Within 1 Week Disposition Disposition (needs filled in before D/C Order can be placed): Home Health Service
--- NOTE | 2022-07-31 12:30 | CASEMGMT ---
[facility] can accept patient and will be out tomorrow. SW notified patient and RN. Plan: d/c home with [facility] [place], PT, and OT Gisell JARVIS
--- NOTE | 2022-07-31 13:39 | DS.PCM_ITS ---
Providers Date of Admission: 07/24/22 Primary Care Physician: Dr. Jason Chinchilla MD Consultations 07/27/22 13:23 Consult: Customer Service Cashier / Pulmonary Medicine Routine Consulting Provider: Pulmonary Medicine rocio [place] Reason for Consult: HYPOXIA EMERGENT Consult: No MD Notified: Yes Date Notified: 07/27/22 Time Notified: 13:23 Method of Notification: Text Reason For Visit: RESPIRATORY FAILURE, COPD EXAC, PNA Diagnosis Discharge Diagnosis (1) Pneumonia: Status: Acute Code(s): J18.9 - Pneumonia, unspecified organism (2) Hypoxia: Status: Acute Code(s): R09.02 - Hypoxemia Plan 1. Acute hypoxia secondary to combination of COPD exacerbation and streptococcal pneumonia/DARRIUS ? Patient was placed on BiPAP admitted to a monitored bed BiPAP has since been weand off -07/26/2022; Patient seen still requiring supplemental oxygen currently 5 L/min flow to maintain adequate saturation. Patient urine antigen test came back positive for streptococcal pneumonia. -07/27/2022; Patient seen still remains significantly hypoxic. Order CT of the chest for further evaluation. Case was discussed with patient's daughter who did express concern about possible mold in the house. Also requested consultation with pulmonary medicine consult has been placed -07/28/2022 patient seen clinical condition continues to improve. Was seen in consultation by Dr. Pettit with pulmonary medicine is noted recommendations reviewed. Patient down to 3 L flow per minute oxygen -07/29/2022 Patient seen continues to improve clinically oxygen requirement down to 2 L/min flow rate WBC count remains elevated 07/30/2022: Continue with antibiotics for streptococcal pneumonia, she is currently on room air at rest and needs 2 L with ambulation, continue with prednisone appreciate pulmonology's input. Continue with her BiPAP. Patient by PT/OT, possible discharge to SNF pending pre-CERT 2. HTN/renal artery stenosis/history of aortic dissection ? She did have a previous PCI to her renal artery as well as repair of her aorta ? Continue with her blood pressure medications 3. GERD ? Stable ? Continue with PPI 4. History of VTE ? She did have a DVT in her right lower extremity, she has completed Elase and 5. History of diffuse large cell lymphoma - currently in remission; did discuss CT findings (Poorly-defined pleural-based opacification in the right upper lobe with air bronchograms. This could represent an infiltrate perhaps due to aspiration,but in a patient with known lymphoma, a metastatic lesion needs to beexcluded. Suspicious 1.5 x 1.20 cm pleural-based nodule in the medial superior right lower lobe concerning for metastasis) with patient's daughter and the need to follow-up for further work- up as outpatient DVT: Lovenox Medications at Discharge Home Medications biotin 10,000 mcg capsule 10,000 mcg PO TID SUPPLEMENT 11/06/17 aspirin 81 mg tablet,delayed release (Adult Low Dose Aspirin) 81 mg PO DAILY HEART HEALTH 08/13/18 clonidine HCl 0.3 mg tablet 0.3 mg PO TID BLOOD PRESSURE 08/13/18 docusate sodium 100 mg tablet 100 mg PO 4X/DAY Constipation 08/13/18 hydralazine 100 mg tablet 100 mg PO Q6H BLOOD PRESSURE 08/13/18 labetalol 200 mg tablet 300 mg PO TID BLOOD PRESSURE 08/13/18 lisinopril 10 mg tablet 10 mg PO DAILY blood pressure 12/01/18 cyanocobalamin (vitamin B-12) 5,000 mcg capsule 5,000 mcg PO DAILY supplement 06/08/19 omeprazole 20 mg capsule,delayed release 20 mg PO DAILY acid reflux 06/08/19 lorazepam 0.5 mg tablet 0.5 mg PO QHS PRN Anxiety 5 days #5 tabs 06/12/19 ascorbate calcium (vitamin C) 500 mg tablet 500 mg PO DAILY SUPPLEMENT 06/19/21 cholecalciferol (vitamin D3) 50 mcg (2,000 unit) capsule 50 mcg PO DAILY SUPPLEMENT 06/19/21 estradiol 0.01% (0.1 mg/gram) vaginal cream (Estrace) 1 g vaginal SUWE 06/19/21 methylcellulose (with sugar) oral powder 850 g PO BID constipation 06/19/21 zinc 50 mg tablet 50 mg PO DAILY SUPPLEMENT 06/19/21 oxycodone 5 mg tablet 5 mg PO QHS PAIN 12/25/21 alendronate 70 mg tablet 70 mg PO PATINO BONES 12/29/21 Glucosamine Chondroitin 1 tab PO/SL BID supplement 07/24/22 acetaminophen 650 mg tablet,extended release 650 mg PO Q8H PRN Pain 07/24/22 amlodipine 10 mg tablet 10 mg PO DAILY BLOOD PRESSURE 07/24/22 multivitamin 1 tab PO DAILY HEALTH MAINTENANCE 01/10/23 omega-3 fatty acids 1,000 mg capsule 5,000 mg PO DAILY SUPPLEMENT 07/24/22 turmeric root extract 500 mg tablet 500 mg PO DAILY SUPPLEMENT 07/24/22 cefdinir 300 mg capsule 300 mg PO BID 4 days #8 caps 07/31/22 prednisone 20 mg tablet 40 mg PO BREAKFAST 5 days #10 tabs 07/31/22 Hospital Course Operations None Procedures None Summary of Care Provided Minutes Spent on Discharge: 36 Hospital Course: Per HPI: The patient is an 82 y/o F w/ PMHx: CKD stage III unclear subtype, Hx VTE DVT RLE, Hx renal artery stenosis s/p PCI, HTN, HLD, Hx Dissection thoracic aortic status post intervention with stent, Diffuse large cell lymphoma in remission, DARRIUS on BIPAP q HS, PVD, Former tobacco use, Hx Multinodular nontoxic goiter, COPD who presents to the [facility] ED on 07/24/22 with history of persistent cough and URI type symptoms (low-grade temperatures, chills, sore throat, frontal mild headache, cough without marked sputum, body aches, nausea, emesis, diarrhea) x 4 days with fever and chills with also her having similar symptoms with home negative COVID testings with recent ED evaluations with discharge to home however she has become increasingly short of breath with fevers low-grade with associated nausea and emesis and no marked productive sputum but given ongoing prompted ED evaluation. Work-up in the ED included T99.2, heart rate initially 91 with most recent repeat 79, BP 177/113 initially with most recent repeat 160/92, respiratory rate initially 16 with 83% on room air eventually requiring 6 L nasal cannula to maintain 94% oxygenation and upon evaluation transitioning to 15 L high flow, CBC with WC 25.6, hemoglobin 13.2, platelet 339 with significant left shift, BMP with BUN/current 31/1.69, lactic acid 1.4 otherwise unremarkable, rapid COVID and influenza antigens negative, chest x-ray with new opacity in the right upper lobe suggestive of pneumonic infiltration, EKG with sinus rhythm with PVCs with no acute evidence of ischemia.? In the ED patient ministered Solu-Medrol 125 mg IV x1, DuoNeb therapy as well as albuterol, 1 L normal saline bolus, azithromycin and Rocephin therapies. Hospital Course: 1.? Acute hypoxia secondary to combination of COPD exacerbation and streptococcal pneumonia/DARRIUS ? Patient was placed on BiPAP admitted to a monitored bed BiPAP has since been weand off -07/26/2022; Patient seen still requiring supplemental oxygen currently 5 L/min flow to maintain adequate saturation.? Patient urine antigen test came back positive for streptococcal pneumonia. -07/27/2022; Patient seen still remains significantly hypoxic.? Order CT of the chest for further evaluation.? Case was discussed with patient's daughter who did express concern about possible mold in the house.? Also requested consultation with pulmonary medicine consult has been placed -07/28/2022 patient seen clinical condition continues to improve.? Was seen in consultation by Dr. Pettit with pulmonary medicine is noted recommendations reviewed.? Patient down to 3 L flow per minute oxygen -07/29/2022 Patient seen continues to improve clinically oxygen requirement down to 2 L/min flow rate WBC count remains elevated 07/30/2022: Continue with antibiotics for streptococcal pneumonia, she is currently on room air at rest and needs 2 L with ambulation, continue with prednisone appreciate pulmonology's input.? Continue with her BiPAP.? Patient by PT/OT, possible discharge to SNF pending pre-CERT ? 07/31/2022: She did not require any oxygen with ambulation today, and with physical therapy she did not require any placement at a SNF, she is able to go home with home health. Will complete a total of 10 days of antibiotics, and will transition her to cefdinir secondary to the strep urine antigen in her urine secondary to her streptococcal pneumonia. We will also give her 5 more days of p.o. prednisone given her admission for COPD exacerbation. I discussed with her the plan for discharge today and she expressed understanding of the risk benefits going home and would like to go home today. 2.? HTN/renal artery stenosis/history of aortic dissection ? She did have a previous PCI to her renal artery as well as repair of her aorta ? Continue with her blood pressure medications 3.? GERD ? Stable ? Continue with PPI 4.? History of VTE ? She did have a DVT in her right lower extremity, she has completed Eliquis 5.? History of diffuse large cell lymphoma - currently in remission; did discuss CT findings (Poorly-defined pleural-based opacification in the right upper lobe with air bronchograms. This could represent an infiltrate perhaps due to aspiration,but in a patient with known lymphoma, a metastatic lesion needs to beexcluded. Suspicious 1.5 x 1.20 cm pleural-based nodule in the medial superior right lower lobe concerning for metastasis) with patient's daughter and the need to follow-up for further work- up as outpatient Physical Exam Narrative General: Alert, Oriented x3, Cooperative, No apparent distress HEENT: Atraumatic, PERRLA, EOMI, Normocephalic Oral: Moist Mucosa Neck: Supple, No JVD Lungs: Diminished, Normal air movement, No rhonchi, No wheeze, No rales Cardiovascular: Regular rate, Regular Rhythm, Normal S1, Normal S2, No murmurs Abdomen: Soft, Non Tender, Non-Distended, No Hepato-splenomegaly Extremities: No edema, Capillary Refill Less than 3 Seconds Skin: No rashes, No breakdown Musculoskeletal: No Tenderness to Palpation of Joints or Extremities Neurological: Cranial nerves II-XII grossly intact, Motor Exam 5/5 strength throughout, Sensory exam intact to light touch and pain Psych/Mental Status: Normal Affect, Appropriate Weight / BMI Weight Weight: 141 lb 8.588 oz Body Mass Index (BMI) 23.8 ABG / Lab / Microbiology Data Result Diagrams: 07/30/22 05:55 07/31/22 05:45 Laboratory: Laboratory Results - last 24 hr 07/28/22 06:33: Diff Path Review Reviewed 07/31/22 05:45: Sodium 138, Potassium 3.8, Chloride 106, Carbon Dioxide 24.0, Anion Gap 8, BUN 39 H, Creatinine 1.19 H, Estim Creat Clear Calc 31.67, Est GFR (MDRD) Af Amer 56 L, Est GFR (MDRD) Non-Af 46 L, BUN/Creatinine Ratio 32.8 H, Glucose 111 H, Calcium 8.8 Microbiology: Microbiology 07/25/22 01:14 Urine, Clean Catch Streptococcus pneumoniae Antigen (M - Final Streptococcus pneumonia Ag 07/25/22 01:14 Urine, Clean Catch Legionella Antigen - Final 07/24/22 16:20 Mucosa - Nasopharyngeal Respiratory Panel (PCR) - Final 07/24/22 12:45 Nasal Secretion SARS-CoV-2 & FLU Antigen (Rapid) - Final D/C Instructions Discharge Diet: Low fat / Low cholesterol Call your doctor if you observe: Fever of 101 or Higher, Shortness of breath, Dizziness, Fainting spells, Swelling in the ankles, Chest pain and Increased palpitations (irregular heartbeat) Meaningful Use Info Meaningful Use Diagnoses (Choose all that apply): None applicable Discharge Plan Admission Admit Date/Time: 07/24/22 15:02 Attending Provider: Froy Sanchez Primary Care Provider: Jason Chinchilla Consulting Providers: Madai Newsome ; Jareth Joseph ; Jai Pettit ; Gonzales Bradshaw ; Ramón Alarcon ; Harriet Sanchez NP ; Be Mejias Discharge Orders/Prescriptions Prescriptions: New prednisone 20 mg Tablet 40 mg PO BREAKFAST 5 Days Qty: 10 0RF cefdinir 300 mg capsule 300 mg PO BID 4 Days Qty: 8 0RF Continued biotin 10,000 mcg capsule 10,000 mcg PO TID docusate sodium 100 mg tablet 100 mg PO 4X/DAY aspirin [Adult Low Dose Aspirin] 81 mg tablet,delayed release (DR/EC) 81 mg PO DAILY labetalol 200 mg tablet 300 mg PO TID clonidine HCl 0.3 mg tablet 0.3 mg PO TID hydralazine 100 mg tablet 100 mg PO Q6H lisinopril 10 mg tablet 10 mg PO DAILY estradiol [Estrace] 0.01 % (0.1 mg/gram) cream 1 g vaginal SUWE zinc 50 mg tablet 50 mg PO DAILY cholecalciferol (vitamin D3) 50 mcg (2,000 unit) capsule 50 mcg PO DAILY ascorbate calcium (vitamin C) 500 mg tablet 500 mg PO DAILY alendronate 70 mg tablet 70 mg PO PATINO omeprazole 20 MG capsule,delayed release(DR/EC) 20 mg PO DAILY cyanocobalamin (vitamin B-12) 5,000 MCG capsule 5,000 mcg PO DAILY lorazepam 0.5 mg tablet 0.5 mg PO QHS PRN (Reason: Anxiety) 5 Days Qty: 5 0RF methylcellulose (with sugar) Powder 850 g PO BID oxycodone 5 mg tablet 5 mg PO QHS amlodipine 10 mg tablet 10 mg PO DAILY multivitamin Tablet 1 tab PO DAILY omega-3 fatty acids 1,000 mg Capsule 5,000 mg PO DAILY acetaminophen 650 mg Tablet Extended Release 650 mg PO Q8H PRN (Reason: Pain) turmeric root extract 500 mg Tablet 500 mg PO DAILY Glucosamine Chondroitin 1 tab PO/SL BID Referrals / Follow Up: Jason Chinchilla MD [Primary Care Provider] - Within 1 Week (Please call office to schedule an appt with Dr. Chinchilla. ) Disposition Disposition (needs filled in before D/C Order can be placed): Home Health Service Charges/Coding Visit Charges Inpatient E&M: 32531 Disch Hosp >30min
[2022-07-31] MEDS: Ensure Plus High Protein 120 ML LIQUID PO (13:53)
[2022-07-31] MEDS: Cefdinir 300 MG Capsule PO (13:55)
--- NOTE | 2022-07-31 15:11 | PHA.DC.MC ---
Pharmacy Service has performed discharge medication reconciliation and counseling for this patient. 1. CEFDINIR 300MG PO BID X 4 DAYS 2. PREDNISONE 40MG PO DAILY X 5 DAYS The patient's discharge medication list was reviewed for discrepancies and discrepancies were resolved. Home Medications biotin 10,000 mcg capsule 10,000 mcg PO TID SUPPLEMENT 11/06/17 aspirin 81 mg tablet,delayed release (Adult Low Dose Aspirin) 81 mg PO DAILY HEART HEALTH 08/13/18 clonidine HCl 0.3 mg tablet 0.3 mg PO TID BLOOD PRESSURE 08/13/18 docusate sodium 100 mg tablet 100 mg PO 4X/DAY Constipation 08/13/18 hydralazine 100 mg tablet 100 mg PO Q6H BLOOD PRESSURE 08/13/18 labetalol 200 mg tablet 300 mg PO TID BLOOD PRESSURE 08/13/18 lisinopril 10 mg tablet 10 mg PO DAILY blood pressure 12/01/18 cyanocobalamin (vitamin B-12) 5,000 mcg capsule 5,000 mcg PO DAILY supplement 06/08/19 omeprazole 20 mg capsule,delayed release 20 mg PO DAILY acid reflux 06/08/19 lorazepam 0.5 mg tablet 0.5 mg PO QHS PRN Anxiety 5 days #5 tabs 06/12/19 ascorbate calcium (vitamin C) 500 mg tablet 500 mg PO DAILY SUPPLEMENT 06/19/21 cholecalciferol (vitamin D3) 50 mcg (2,000 unit) capsule 50 mcg PO DAILY SUPPLEMENT 06/19/21 estradiol 0.01% (0.1 mg/gram) vaginal cream (Estrace) 1 g vaginal SUWE 06/19/21 methylcellulose (with sugar) oral powder 850 g PO BID constipation 06/19/21 zinc 50 mg tablet 50 mg PO DAILY SUPPLEMENT 06/19/21 oxycodone 5 mg tablet 5 mg PO QHS PAIN 12/25/21 alendronate 70 mg tablet 70 mg PO PATINO BONES 12/29/21 Glucosamine Chondroitin 1 tab PO/SL BID supplement 07/24/22 acetaminophen 650 mg tablet,extended release 650 mg PO Q8H PRN Pain 07/24/22 amlodipine 10 mg tablet 10 mg PO DAILY BLOOD PRESSURE 07/24/22 multivitamin 1 tab PO DAILY HEALTH MAINTENANCE 07/24/22 omega-3 fatty acids 1,000 mg capsule 5,000 mg PO DAILY SUPPLEMENT 07/24/22 turmeric root extract 500 mg tablet 500 mg PO DAILY SUPPLEMENT 07/24/22 cefdinir 300 mg capsule 300 mg PO BID 4 days #8 caps 07/31/22 prednisone 20 mg tablet 40 mg PO BREAKFAST 5 days #10 tabs 07/31/22 The patient was counseled on the following discharge medications and changes in medications for homegoing were reviewed. The Reason for Use, instructions for use, and potential side effects were reviewed for all new medications. The patient's questions regarding all of their medications were answered. The patient was able to verbally demonstrate an understanding of their discharge medications.
== END 2022-07-31 15:41 | disposition home health service (06) | DRG 193 ==
LOC: ED 14:42 → PCU 15:42
PROVIDERS: Internal Medicine; Admitting Provider Family Medicine; Emergency Provider Emergency Medicine; PCP Family Medicine; Visit Provider Family Medicine
DX: J13 Pneumonia due to Streptococcus pneumoniae (principal); J96.01 Acute respiratory failure with hypoxia; J44.0 Chronic obstructive pulmonary disease with (acute) lower respiratory infection; J44.1 Chronic obstructive pulmonary disease with (acute) exacerbation; N18.30 Chronic kidney disease, stage 3 unspecified; I70.1 Atherosclerosis of renal artery; I12.9 Hypertensive chronic kidney disease with stage 1 through stage 4 chronic kidney disease, or unspecified chronic kidney disease; E78.2 Mixed hyperlipidemia; K21.9 Gastro-esophageal reflux disease without esophagitis; G47.33 Obstructive sleep apnea (adult) (pediatric); F41.9 Anxiety disorder, unspecified; Z20.822 Contact with and (suspected) exposure to COVID-19; Z79.83 Long term (current) use of bisphosphonates; Z87.891 Personal history of nicotine dependence; Z79.82 Long term (current) use of aspirin; Z85.72 Personal history of non-Hodgkin lymphomas
CPT/HCPCS: 36415; 36600; 71045; 71250; 80048; 80053; 82803; 83605; 83735; 84100; 84145; 85025; 87428; 87449; 87633; 87635; 93005; 94002; 94003; 94640; 94667; 94668; 94762; 97110; 97116; 97162; 97166; 97530; 97535; 97802; 99285; J7030; J7040; J7050; A4216; U0003; U0005

== ENCOUNTER → 2022-08-13 | Outpatient (CLI) | payer MEDICARE, SELFPAY ==
--- NOTE | 2022-08-13 14:59 | BI_ITS ---
MAMMOGRAPHY - BILATERAL SCREENING REASON FOR EXAM: Female, 82 years old. Routine annual screening examination. PERTINENT HISTORY: Daughter with breast cancer. Sister with breast cancer. TECHNIQUE: Digital bilateral breast dionicio (3D mammographic acquisition) in the CC and MLO projections. 2-D mediolateral oblique (MLO) and craniocaudad (CC) views of both breasts were obtained. CAD: Full Field Digital Mammography with Computer Added Detection was performed. COMPARISON: Comparison is made with prior study dated 07/13/2021 and 06/17/2020. FINDINGS: Breast Composition: The breasts are heterogeneously dense, which may obscure small masses. There are no dominant masses or suspicious calcifications. Stable secretory calcification. Stable benign-appearing bilateral axillary lymph nodes. No other significant abnormalities are identified. There has been no significant change since the prior study. BI/SCRN MAMM (CAD)W/DIONICIO BILAT IMPRESSION: Stable bilateral screening mammogram. Yearly follow-up mammogram recommended. (A) ASSESSMENT CATEGORY: BIRADS Category 2: Benign. A letter regarding these results will be sent to the patient by the facility within 30 days. Approximately 10% of breast cancers are not detected by mammography. A normal mammogram should not delay biopsy of a clinically suspicious abnormality. [id number] Electronically Signed: Selvin Price MD at 15:34 EST ,
== END | disposition home or self-care (01) ==
LOC: OPBI 14:58
PROVIDERS: PCP Family Medicine; Visit Provider Nurse Practitioner Women's Health
DX: Z12.31 Encounter for screening mammogram for malignant neoplasm of breast (principal); Z80.3 Family history of malignant neoplasm of breast
CPT/HCPCS: 77063; 77067

== ENCOUNTER → 2022-08-30 | Outpatient (CLI) | payer MEDICARE, SELFPAY ==
--- NOTE | 2022-08-30 14:59 | CT_ITS ---
STUDY: CT CHEST WITHOUT CONTRAST REASON FOR EXAM: Female, 82 years old. Follow multiple nodules RADIATION DOSAGE (If Supplied By Facility): CTDIvol = ( 6.47 ) mGy, DLP = ( 218.68 ) mGycm TECHNIQUE: Transaxial imaging was performed without the administration of intravenous contrast material. Multiplanar coronal and sagittal images were reformatted. Individualized dose optimization techniques were used for this CT. COMPARISON: Comparison is made with prior study dated 07/27/2022. FINDINGS: CHEST Heterogeneous enlargement of the right lobe of the thyroid with no focal calcifications. Mild linear scarring in the upper lobes. There is a 5.6 mm noncalcified nodule in the right upper lobe as seen on axial image #61. The previously seen infiltrates in the posterior aspect of the right upper lobe as well as in both lower lobes have resolved. No new infiltrate is seen. There is no demonstrated pleural abnormality. There are calcifications of the coronary arteries. There are multiple small lymph nodes within the mediastinum, which are normal in size and morphology most compatible with reactive lymph hyperplasia. Normal hilar regions. Normal unenhanced pulmonary arteries. There is atherosclerotic calcification of the aortic arch with tortuosity and elongation of the aortic arch and descending thoracic aorta. Endoluminal stent graft is seen at the level of the aortic arch and descending thoracic aorta. This is unchanged. There are multi-level degenerative changes of the thoracic spine. Multiple gallstones. CT/Chest without Contrast IMPRESSION: 5.6 mm noncalcified nodule in the right upper lobe as seen on axial image #61. The previously seen infiltrates have resolved. Minimal residual linear scarring persist in both upper lobes. Electronically Signed: Selvin Price MD at 14:25 EST ,
== END | disposition home or self-care (01) ==
LOC: CT 14:54
PROVIDERS: PCP Internal Medicine; Referring Provider Nurse Practitioner Acute Care; Visit Provider Nurse Practitioner Acute Care
DX: R91.8 Other nonspecific abnormal finding of lung field (principal)
CPT/HCPCS: 71250

== ENCOUNTER → 2022-09-19 | Outpatient (CLI) | payer MEDICARE, SELFPAY ==
--- NOTE | 2022-09-19 06:24 | ECHOD_ITS ---
Reason For Study: SAUCEDO Procedure This was a 2D Doppler, Color Flow transthoracic echocardiogram. Exam performed in department. Left Ventricle Moderate concentric left ventricular hypertrophy. Normal LV size. The left ventricular ejection fraction is 65 %. Stage 2 diastolic dysfunction. Right Ventricle Normal right ventricle. Atria The left atrium is moderately enlarged. Normal right atrium. Mitral Valve Mild diffuse mitral valve thickening. Trivial mitral valve insufficiency. Tricuspid Valve Mild tricuspid valve insufficiency. Right ventricular systolic pressure estimated to be 55 mmHg. Moderate pulmonary hypertension. Aortic Valve Moderate focal aortic valve calcification. Mild (1+) aortic valve insufficiency. Pulmonic Valve The pulmonic valve is not well visualized. Great Vessels Mildly dilated aortic root. Pericardium/Pleural Trivial pericardial effusion. MMode/2D Measurements & Calculations LVIDd: 4.4 cm IVSd: 1.7 cm LVOT diam: 2.0 cm LVIDs: 2.7 cm LVPWd: 1.8 cm LVOT area: 3.1 cm2 RVDd: 3.4 cm FS: 37.5 % Ao root diam: 3.5 cm LAV(MOD-sp4): 88.2 ml LVAd ap4: 22.1 cm2 LVLd ap4: 7.4 cm EDV(MOD-sp4): 54.5 ml EDV(sp4-el): 56.2 ml LVAs ap4: 11.4 cm2 LVLs ap4: 6.0 cm ESV(MOD-sp4): 20.0 ml ESV(sp4-el): 18.5 ml EF(MOD-sp4): 63.2 % EF(sp4-el): 67.1 % SV(MOD-sp4): 34.4 ml SV(sp4-el): 37.7 ml LA A4 area: 27.8 cm2 LA dimension(2D): 4.6 cm RA A4 area: 21.0 cm2 Time Measurements MV dec time: 0.32 sec Doppler Measurements & Calculations MV E max tremaine: 68.1 cm/sec Lat Peak E' Tremaine: 4.4 cm/sec Med Peak E' Tremaine: 2.5 cm/sec MV A max tremaine: 128.1 cm/sec E/E' lat: 15.6 E/E' med: 27.0 MV E/A: 0.53 MV V2 max: 120.8 cm/sec Ao V2 max: 188.3 cm/sec MV max P.8 mmHg MV dec slope: 211.5 cm/sec2 Ao max P.2 mmHg MV V2 mean: 57.4 cm/sec Ao V2 mean: 125.3 cm/sec MV mean P.6 mmHg Ao mean P.9 mmHg MV V2 VTI: 37.6 cm Ao V2 VTI: 40.7 cm AV (velocity ratio): 0.79 MVA(VTI): 2.7 cm2 CAROLIN(I,D): 2.5 cm2 CAROLIN(V,D): 2.2 cm2 LV V1 max: 131.9 cm/sec SV(LVOT): 100.3 ml PA V2 max: 140.2 cm/sec LV V1 max P.0 mmHg PA V2 mean: 87.3 cm/sec LV V1 mean P.4 mmHg LV V1 mean: 85.1 cm/sec LV V1 VTI: 32.3 cm TR max tremaine: 335.6 cm/sec TR max P.1 mmHg ECHO/Echo Complete Interpretation Summary Moderate concentric left ventricular hypertrophy. The left ventricular ejection fraction is 65 %. Stage 2 diastolic dysfunction. The left atrium is moderately enlarged. Mild diffuse mitral valve thickening. Right ventricular systolic pressure estimated to be 55 mmHg. Moderate pulmonary hypertension. Mild (1+) aortic valve insufficiency. Mildly dilated aortic root. Trivial pericardial effusion. Ordering Physician: Roberta Ayala Referring Physician: Roberta Ayala Performed By: Araceli Aleman RCS
[2022-09-19 07:14] LABS: Absolute Lymphocyte Count 1.85 X10^3/uL (0.83-4.51); Absolute Neutrophil Count 4.4 X10^3/uL (2.0-7.7); Basophil# 0.07 X10^3/uL; Basophil% 0.9 % (0-1); Eosinophil# 0.25 X10^3/uL; Eosinophils% 3.4 % (0-5); Hematocrit 39.7 % (37-47); Hemoglobin 12.5 g/dL (12.0-15.0); Lymphocyte # 1.85 X10^3/ul (0.83-4.51); Lymphocyte % 25.1 % (19-41); Mean Corp Hgb Conc 31.5 g/dL (32-36); Mean Corpuscular Hgb 30.4 pg (27.0-32.0); Mean Corpuscular Volume 96.6 fL (81-99); Mean Platelet Vol. 8.8 fl (6.2-12.0); Monocyte# 0.72 X10^3/uL; Monocyte% 9.8 % (0-10); NRBC Flagged by Analyzer 0 % (0-5); Neutrophil # 4.39 X10^3/uL (2.7-7.7); Neutrophil % 59.4 % (47-70); Platelet Count 289 K/mm3 (150-450); RBC Distribution Width CV 14.8 % (11.6-14.6); RBC Distribution Width SD 52.6 fl (35.1-43.9); Red Blood Count 4.11 M/mm3 (4.2-5.4); White Blood Count 7.4 K/mm3 (4.4-11.0)
[2022-09-19 07:37] LABS: Cholesterol 221 mg/dL (200); High Density Lipoprotein 62 mg/dL; Triglycerides 167 mg/dL; Very Low Density Lipoprotein 33 mg/dL (5-40)
[2022-09-19 08:30] LABS: Vitamin D,25 Hydroxy 82.4 ng/mL
--- NOTE | 2022-09-19 09:50 | STRESSREP_ITS ---
Stress Test Report Date: 09/19/2022 Procedure: Pharmacologic stress nuclear imaging study Indications: Dyspnea on exertion Consent: Per the patient Procedure: The patient underwent pharmacologic (Regadenoson 0.4mg ) evaluation with a peak heart rate of 93 beats per minute (68%predicted maximal heart rate) and a peak blood pressure of 168/80 mmHg. The baseline ECG demonstrated normal sinus. The peak pharmacologic ECG demonstrated no ischemic changes. There were no cardiac dysrhythmias pretest, during pharmacologic infusion, or recovery. There was no complaint of chest discomfort during pharmacologic infusion or recovery. The patient was injected with 11.5 millicuries of technetium 99m Cardiolite and subsequently rest SPECT Cardiolite nuclear imaging was obtained in the horizontal long, vertical long, and short axis views. The patient underwent pharmacologic (Regadenoson) evaluation. The patient was injected with 35 millicuries of technetium 99m Cardiolite and subsequently stress SPECT Cardiolite nuclear imaging was obtained in the horizontal long, vertical long, and short axis views. A gated Cardiolite study at peak stress was obtained. The examination was stopped secondary to completion of protocol. Rest and stress SPECT Cardiolite nuclear imaging status post realignment, normalization, and attenuation correction demonstrate uniform tracer uptake. There is end systolic thickening and brightening. The gated Cardiolite study demonstrates myocardial thickening and inward wall motion. The reported LVEF is 72%. Impression: 1. Pharmacologic (Regadenoson) evaluation 2. Peak pharmacologic ECG with no ischemic changes. 3. There were no cardiac dysrhythmias pretest, during pharmacologic infusion, or recovery. 5. No fixed or reversible perfusion defects noted. 6. The gated Cardiolite study reports an LVEF of 72%. This note was generated with [employer] software. It may contain incorrect words, spelling, and punctuation that were not noted in checking the note before signing.
== END | disposition home or self-care (01) ==
PROVIDERS: PCP Internal Medicine; Referring Provider Internal Medicine Cardiovascular Disease; Visit Provider Internal Medicine Cardiovascular Disease
DX: I10 Essential (primary) hypertension (principal); I71.019 Dissection of thoracic aorta, unspecified; I70.1 Atherosclerosis of renal artery; E78.5 Hyperlipidemia, unspecified; I70.90 Unspecified atherosclerosis; M81.0 Age-related osteoporosis without current pathological fracture; I35.0 Nonrheumatic aortic (valve) stenosis; I34.0 Nonrheumatic mitral (valve) insufficiency; R06.02 Shortness of breath; R09.89 Other specified symptoms and signs involving the circulatory and respiratory systems; R00.1 Bradycardia, unspecified
CPT/HCPCS: 36415; 78452; 80061; 82306; 85025; 93017; 93306; A9500; A4216; J2785

== ENCOUNTER 2022-10-01 13:30 | Outpatient (RCR) | payer MEDICARE, SELFPAY ==
--- NOTE | 2022-08-27 10:41 | HP.PTEVAL_ITS ---
Patient's Visit Information DANAE KYLE is a 82 year old F referred to Physical Therapy by Dr. Jason Chinchilla MD with a diagnosis of weakness and reduced mobility. Date of Evaluation: 08/27/22 Physical Therapist: Newton Fong DPT, OCS, CSCS - Visit Plan Frequency: 3x /Week Duration: 4-6 Weeks Plan: 3x/week for 4 weeks for. 1. teach home based strength for LE adn progress to I. 2. walking balance steps and without walker to work on funcitonal balance(likely will not progress away from walker funcitonally). 3. gym ex as time allows to work toward I gym program for LE and postural strengvth and conditioning. Ensure O2 sats stay good or give rest as patient has COPD. - Subjective Got pneumonia in July, In hospital 8 days.. had PT last May and did well and got to HEP. Pneumonia took it out of her. Now legs feel weak and gets SOB quickly. Mildly unsteady. using wh walker all the time except in kitchen and needed it prior. Sleeping is good. No pain. No falls. Have neuropathy but not sure why. Longstanding. Activities include making cards and scrap book and can still do those. Has 14 steps to craft room with two railing. Can do it but is SOB coming up and does it one step at a t jas. Basic ADLs are going i ncluding dressing and shower and bathroom. Had home PT for 3 weeks after d/c - Objective rest so2 sat is 93% and 78 HR. after walk and steps 89% and 93 HR. Back to baseline at 2.5 minutes rest. Walks with wh walker mod I. Steps with two rails reciprocally and SOB after session but able. Trasnfers are I. LE AROM WFL, sensation in feet at deficit to gross light touch and two point discrimination. reflexes 0/3 achilles and 1/3 patella. 11 sec on FTSTS - Balance/Special Test Scores Functional Gait Assessment Score: 21 % Disability: 30.0000 Lower Extremity Functional Score: 39 TUG Test Time Seconds: 16 30 Second Chair Rise Test Seconds: 10 - Goals Goal 1:: FGA without walker. Goal Time Frame: 4-6 Weeks Goal 2:: 12 on 30 sec sit to stand and 10.5 on FSSTS test to be in line with others her age mobiliity emmanuel. Goal Time Frame: 4-6 Weeks Goal 3:: Pt feel back to baseline strength adn mobility as prior to pneumonia Goal Time Frame: 4-6 Weeks - Rehabilitation Potential Physical Therapy Diagnosis: deconditioned form pneumonia making thing slower at home and more labored. Rehabilitation Potential: Good - Anticipated Interventions Patient/Client Instruction: Educate patient on: Condition, Plan of Care For the Purpose of:: To improve muscle performance and motor function, To increase tolerance to activity/condition/position, To improve gait and locomotor functions Therapeutic Exercise to Include: Strength training, Endurance training, Balance training, Postural training, Gait and locomotor training, Passive ROM, Active ROM For the Purpose of:: To improve muscle performance and motor function, To increase tolerance to activity/condition/position, To improve ability of physical actions for home/community/work/leisure, To improve gait and locomotor functions, To improve balance, To improve safety with gait Thank you for the opportunity to evaluate your patient. For Medicare and Medicare HMO plans, please review the plan of care and approve it. It will need to be FAXED BACK to us at [phone] for Medicare purposes. For Medicare only, by signing this I certify the plan of care. Please let me know if there are questions or concerns regarding this plan of care. Physician Signature: Date:
--- NOTE | 2022-10-01 14:15 | HP.PTDCSUM ---
It has been my pleasure to treat DANAE KYLE referred by Dr. Jason Chinchilla MD, with the diagnosis of weakness and reduced mobility for a total of 13 visit(s). Discharge Date: 10/01/22 Please see the following information for a summary of their discharge status. Subjective: I pulled muscle in my back yesterday. Getting back to normal. 60%. Still needs to continue workout at home and she knows that. Will also come 2x/week for Silver sneakers. % Improvement: 60 Objective/Function: FTSTS adn 30 sec sit to stand not done today due to back pain from last night. Pt declined and treated with TENS and MH to LB in sitting for pain. Pt wishes to be done with PT and will continue via HEP and gym and contact doctor if back pain does not get better. Goal 1:: FGA without walker. Goal Progress: Not Progressing Goal 2:: 12 on 30 sec sit to stand and 10.5 on FSSTS test to be in line with others her age mobiliity emmanuel. Goal Progress: NOt tested Goal 3:: Pt feel back to baseline strength adn mobility as prior to pneumonia Goal Progress: 60%, ready to be on own Plan: d/c If there are questions or concerns regarding this patient's physical therapy, please feel free to call me at [phone]. Thank you for the referral of this patient. Sincerely, Newton Fong, DPT, OCS, CSCS Balance/Gait/Functional tests - Balance/Special Test Scores Functional Gait Assessment Score: 21 % Disability: 30.0000 Lower Extremity Functional Score: 44 TUG Test Time Seconds: 16 Tug Test: <20 sec.=mostly independent 30 Second Chair Rise Test Seconds: 10
== END 2022-10-01 19:00 | disposition home or self-care (01) ==
LOC: PT 13:30
PROVIDERS: PCP Family Medicine; Referring Provider Family Medicine; Visit Provider Family Medicine
DX: R53.1 Weakness (principal); R68.89 Other general symptoms and signs; Z74.09 Other reduced mobility
CPT/HCPCS: 97110; 97162; 97164

== ENCOUNTER 2022-10-02 10:20 | Emergency (ER) | payer MEDICARE, SELFPAY ==
[2022-10-02 10:22] VITALS: BP 189/108; PULSE 67; RESP 18; TEMP 36.1; O2SAT 98
--- NOTE | 2022-10-02 10:37 | CT_ITS ---
INDICATION: BACK PAIN WITH HISTORY OF AORTIC SURGERY EXAMINATION: CTA CHEST, ABDOMEN AND PELVIS WITH CONTRAST - TECHNIQUE: A CTA of the chest, abdomen, and pelvis is obtained with sagittal and coronal reconstructed MIP views. Three-dimensional surface rendered sequence of the thoracic and abdominal aorta was obtained. A radiation dose optimization technique was used for this scan. 100 mL of Isovue-370. Oral contrast: None. COMPARISON: CT dated July 27, 2022 FINDINGS: CT CHEST: THORACIC AORTA: There is a stable dense within the aortic arch and descending thoracic aorta There is atheromatous disease. ABDOMINAL AORTA: No aneurysm or dissection. There is atheromatous disease. There are opacified bilateral renal artery stents in place. The iliac arteries are unremarkable. LUNGS: There is minimal stable atelectasis and/or scarring within the right middle lobe. There is no new focal consolidation. MEDIASTINUM: The thyroid gland is normal. No mediastinal or hilar adenopathy. The pulmonary arteries are enlarged. HEART: Heart is normal size. No pericardial effusion. There are coronary artery calcifications. CT ABDOMEN AND PELVIS: LIVER: There is a stable round low attenuation focus with coarse peripheral calcifications within the right hepatic lobe. There is an additional 6 stable subcentimeter low-attenuation focus within the right hepatic lobe. GALLBLADDER: The CBD is normal. Normal gallbladder. SPLEEN: Normal. PANCREAS: No masses or inflammation. ADRENAL GLANDS: There is stable prominence of the adrenal gland may be secondary to hypertrophy. KIDNEYS AND URETERS: There are bilateral renal cysts. No hydronephrosis or nephrolithiasis. STOMACH: Normal. SMALL BOWEL: No abnormal distention of the small bowel. MESENTERY: No mesenteric inflammation. No ascites. COLON: There is a moderate amount of stool throughout the colon. No significant diverticulosis, masses or inflammation. The colon otherwise is normal. There is a large fatty ileocecal valve. APPENDIX: The appendix is visualized and normal. IVC: Normal. RETROPERITONEUM: No retroperitoneal lymphadenopathy. PELVIC STRUCTURES: Normal bladder. There is a pessary in place. SOFT TISSUES ABDOMEN: The anterior abdominal wall is normal. SOFT TISSUE CHEST: The extrathoracic soft tissues are normal. BONES: There are degenerative changes of the thoracic and lumbar spine. There are bilateral pedicle screws and posterior spinal rods at T12-S1. The vertebral body heights are preserved. The alignment is anatomic. No suspicious bony lesions are seen. There is a left total hip arthroplasty in place. CT/CTA Chst, Abd, Pel W and/or WO IMPRESSION: Enlarged pulmonary arteries, may be secondary to pulmonary artery hypertension. Stable thoracic aorta stent. Atherosclerosis. Moderate amount of stool throughout the colon. Degenerative changes of the thoracic and lumbar spine. Postsurgical changes of the thoracic and lumbar spine. Electronically Signed: Kelle Amador MD at 12:51 EDT ,
[2022-10-02 10:40] VITALS: BMI 24.6
--- NOTE | 2022-10-02 10:44 | EDS_ITS ---
HPI History of Present Illness Chief Complaint: Back Narrative Narrative: Patient presents with back pain that started yesterday. She tells me it is quite intense. It is nontraumatic. She has no abdominal pain, she has chronic urinary frequency which has not changed. She has no diarrhea or constipation. She has no radiation of the pain to her legs, no weakness in her legs or numbness. 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) Essential (primary) hypertension GERD (gastroesophageal reflux disease) History of deep venous thrombosis (DVT) of distal vein of right lower extremity Incontinence Multinodular goiter (nontoxic) Nonhealing surgical wound Nonrheumatic aortic valve stenosis Nonrheumatic mitral valve insufficiency DARRIUS (obstructive sleep apnea) Osteoporosis Peripheral vascular disease Pessary maintenance Postlaminectomy syndrome Pulmonary hypertension Renal artery stenosis Stage 1 mild COPD by GOLD classification Thoracic spondylosis without myelopathy Thyroid nodule Wound dehiscence, surgical Wound, open, back Home Medications aspirin 81 mg tablet,delayed release (Adult Low Dose Aspirin) 81 mg PO DAILY HEART HEALTH 08/13/18 [History Last Taken 07/23/22] clonidine HCl 0.3 mg tablet 0.3 mg PO TID BLOOD PRESSURE 08/13/18 [History Last Taken 07/23/22] hydralazine 100 mg tablet 100 mg PO Q6H BLOOD PRESSURE 08/13/18 [History Last Taken 07/24/22] labetalol 200 mg tablet 300 mg PO TID BLOOD PRESSURE 08/13/18 [History Last Taken 07/23/22] lisinopril 10 mg tablet 10 mg PO DAILY blood pressure 12/01/18 [History Last Taken 07/23/22] cyanocobalamin (vitamin B-12) 5,000 mcg capsule 5,000 mcg PO DAILY supplement 06/08/19 [History Last Taken 07/23/22] omeprazole 20 mg capsule,delayed release 20 mg PO DAILY acid reflux 06/08/19 [History Last Taken 07/23/22] cholecalciferol (vitamin D3) 50 mcg (2,000 unit) capsule 50 mcg PO DAILY SUPPLEMENT 06/19/21 [History Last Taken 07/23/22] zinc 50 mg tablet 50 mg PO DAILY SUPPLEMENT 06/19/21 [History Last Taken 07/23/22] oxycodone 5 mg tablet 5 mg PO QHS PAIN 12/25/21 [History Last Taken 07/23/22] alendronate 70 mg tablet 70 mg PO PATINO BONES 12/29/21 [History Last Taken 07/22/22] amlodipine 10 mg tablet 10 mg PO DAILY BLOOD PRESSURE 07/24/22 [History Last Taken 07/23/22] multivitamin 1 tab PO DAILY HEALTH MAINTENANCE 07/24/22 [History Last Taken 07/24/22] turmeric root extract 500 mg tablet 500 mg PO DAILY SUPPLEMENT 07/24/22 [History Last Taken 07/24/22] acetaminophen 650 mg tablet,extended release 650 mg PO Q6H PRN Pain 09/11/22 [History Last Taken Unknown] calcium citrate 250 mg PO BID 09/11/22 [History Last Taken Unknown] docusate sodium 100 mg tablet 100 mg PO 4X/DAY PRN Constipation 09/11/22 [History Last Taken Unknown] furosemide 20 mg tablet (Lasix) 20 mg PO DAILY PRN edema 09/11/22 [History Last Taken Unknown] lorazepam 0.5 mg tablet 0.5 mg PO DAILY PRN Anxiety 09/11/22 [History Last Taken Unknown] methylcellulose (laxative) (Citrucel Sugar Free oral powder) 2 g PO BID 09/11/22 [History Last Taken Unknown] omega-3 fatty acids 1,000 mg capsule 1,000 mg PO TID SUPPLEMENT 09/11/22 [History Last Taken Unknown] Delta 8 Hemp Gummy PO DAILY 09/12/22 [History Last Taken Unknown] antiarthritic combination no.2 900 mg tablet (glucosamine-chondroitin) 900 mg PO BID 09/12/22 [History Last Taken Unknown] biotin 10,000 mcg capsule 10,000 mcg PO TID SUPPLEMENT 09/12/22 [History Last Taken Unknown] hydrocodone-acetaminophen 5-325mg 5mg-325mg 1 tab PO Q4H PRN PRN Pain 3 days #12 TABLETS 10/02/22 [Rx Last Taken Unknown] Allergy/AdvReac Type Severity Reaction Status Date / Time bisoprolol Allergy bleeding Verified 10/02/22 10:25 levofloxacin [From Levaquin] Allergy anxiety Verified 10/02/22 10:25 meloxicam Allergy bleeding Verified 10/02/22 10:25 Sulfa (Sulfonamide Allergy hives Verified 10/02/22 10:25 Antibiotics) codeine AdvReac Other Verified 10/02/22 10:25 Family History Mother CAD (coronary artery disease) <65 Daughter Breast cancer Sister Breast cancer Father , at age 53 Brain aneurysm Heart disease Daughter Cancer Thyroid Cancer Uncle Myocardial infarction Uncle Myocardial infarction Surgical History History of bunionectomy of right great toe History of carpal tunnel release History of cataract surgery History of left hip replacement History of left knee replacement History of open reduction and internal fixation (ORIF) procedure History of partial hysterectomy History of stent insertion of renal artery (~07/30/18) Hx of repair of dissecting thoracic aortic aneurysm, Micah type B (~09/04/18) Previous back surgery S/P lumbar fusion S/P thyroid biopsy (~12/2021) Status post right knee replacement Social History household members: spouse current occupational status: 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 Smoking Status: Former smoker quit date: 07/15/74 pack-years: 9 Electronic Cigarette Use: not used alcohol intake: current alcohol intake frequency: a few times a month substance use type: does not use caffeine: Yes Type: coffee Number of servings: 1 what type of physical activity do you participate in: walking and weight training frequency: 3-4 times per week duration: 60-90 minutes/day seatbelt use: always do you feel safe at home: Yes additional social history: -Matthew BEE [facility]RI[facility] ED ROS Narrative Past medical history: Reviewed Medications: Reviewed Social history: Lives with her Review of systems: All systems negative except as indicated General: No fever Neck: No neck pain Cardiovascular: No chest pain Respiratory: No shortness of breath or cough Gastrointestinal: No abdominal pain, nausea vomiting or diarrhea Genitourinary: No dysuria Musculoskeletal: Back pain as in HPI Skin: No rash Neurological: No memory loss, confusion or any focal weakness Psych: No recent behavioral changes EXAM Physical Exam Narrative Exam Narrative: Physical exam General: Patient appears somewhat uncomfortable Head: Normocephalic, Atraumatic Eyes: Conjunctiva not pale ENT: Moist mucous membranes Neck: Supple, Nontender, No lymphadenopathy Cardiovascular: Regular rate, Regular rhythm Respiratory: No distress, CTA bilaterally Abdomen: Soft, Nontender, Nondistended no mass. Back: Lower thoracic and upper lumbar pain its not midline its paraspinal I can somewhat reproduce it. Extremities: Nontender, No edema Skin: Normal color, No rash Neurological: Normal bilateral reflexes in patellar's and Achilles. Normal plantarflexion dorsiflexion both feet and great toes Psychological: Normal affect Const Vital Signs: 10/02/22 10:22 10/02/22 12:31 Temperature 96.9 F L Temperature Source Temporal Pulse Rate 67 Respiratory Rate 18 Blood Pressure 189/108 H Blood Pressure Mean 135 Pulse Ox 98 95 Oxygen Delivery Method Room Air Room Air MDM MDM MDM Narrative Medical decision making narrative: A. Problems addressed. Patient has nontraumatic back pain that is new and she has a history of dissection, I did think about aortic dissection and this was not found on the CT angiogram, I also thought about cauda equina however patient has no signs or symptoms with no red flags. She does not have a UTI or kidney stones. She has degenerative changes of the spine on CT and this is likely the cause of her pain. She has a normal neurological exam MRI is not warranted at this time. She improved with analgesia and I will give her analgesia for home. Her blood pressure was also elevated this could be due to pain however she is told to watch it and follow-up with her PCP. B. Amount and/or complexity of the data 1. CBC and CMP as well as urinalysis were interpreted by me I discussed the patient with her friend and neighbor who was in the room C. Risk of complications and/or morbidity Differential diagnosis: See above I have thought about admitting the patient, in fact I talked to her and her friend who is here also her neighbor in the room about some sort of rehab or inpatient and at this time she think she can be safely discharged as long as she has analgesia for home. This sounds reasonable. Lab Data Labs: Laboratory Results - last 24 hr 10/02/22 10/02/22 10/02/22 10:50 10:50 11:35 WBC 9.4 RBC 4.15 L Hgb 12.9 Hct 40.0 MCV 96.4 MCH 31.1 MCHC 32.3 RDW Std Deviation 51.3 H RDW Coeff of Tom 14.6 Plt Count 295 MPV 8.6 Immature Gran % (Auto) 2.200 H Neut % (Auto) 72.6 H Lymph % (Auto) 13.5 L [place] % (Auto) 8.9 Eos % (Auto) 2.4 Baso % (Auto) 0.4 Absolute Neuts (auto) 6.8 Absolute Lymphs (auto) 1.26 Nucleated RBC % 0 Differential Comment SCANNED Sodium 142 Potassium 3.4 L Chloride 108 H Carbon Dioxide 28.0 Anion Gap 6 BUN 23 H Creatinine 1.19 H Estim Creat Clear Calc 31.67 Est GFR (MDRD) Af Amer 56 L Est GFR (MDRD) Non-Af 46 L BUN/Creatinine Ratio 19.3 Glucose 125 H Calcium 9.7 Total Bilirubin 0.50 AST 18 ALT 28 Alkaline Phosphatase 61 Total Protein 7.5 Albumin 3.3 Globulin 4.2 Albumin/Globulin Ratio 0.8 L Urine Color Yellow Urine Clarity Clear Urine pH 7.0 Ur Specific [place] 1.010 Urine Protein 30 H Urine Glucose (UA) Normal Urine Ketones Negative Urine Occult Blood Negative Urine Nitrite Negative Urine Bilirubin Negative Urine Urobilinogen Normal Ur Leukocyte Esterase 25 H Urine RBC 0 SEEN Urine WBC 0-5 SEEN Ur Squamous Epith Cells 0-5 SEEN Urine Bacteria 0 SEEN Urine Mucus 0 SEEN Radiography Diagnostic Testing: Clinical Impression(s) from Imaging Studies Chest/Abdomen/Pelvis CTA 10/02/22 10:37 IMPRESSION: Enlarged pulmonary arteries, may be secondary to pulmonary artery hypertension. Stable thoracic aorta stent. Atherosclerosis. Moderate amount of stool throughout the colon. Degenerative changes of the thoracic and lumbar spine. Postsurgical changes of the thoracic and lumbar spine. Electronically Signed: Kelle Amador MD at 12:51 EDT , Discharge Plan Triage Chief Complaint: Back ED Provider: Trent Davis Dx/Rx/DC Orders Clinical Impression: Back pain, History of aortic dissection, Hypertension Instructions: Relieving Back Pain, Back Safety Bed, Medicine for Pain Prescriptions: New hydrocodone-acetaminophen 5-325 mg tablet 1 tab PO Q4H PRN PRN (Reason: Pain) 3 Days Qty: 12 0RF No Action biotin 10,000 mcg capsule 10,000 mcg PO TID aspirin [Adult Low Dose Aspirin] 81 mg tablet,delayed release (DR/EC) 81 mg PO DAILY labetalol 200 mg tablet 300 mg PO TID clonidine HCl 0.3 mg tablet 0.3 mg PO TID hydralazine 100 mg tablet 100 mg PO Q6H docusate sodium 100 mg tablet 100 mg PO 4X/DAY PRN (Reason: Constipation) lisinopril 10 mg tablet 10 mg PO DAILY zinc 50 mg tablet 50 mg PO DAILY cholecalciferol (vitamin D3) 50 mcg (2,000 unit) capsule 50 mcg PO DAILY furosemide [Lasix] 20 mg tablet 20 mg PO DAILY PRN (Reason: edema) calcium citrate 250 mg calcium tablet 250 mg PO BID Citrucel Sugar Free Powder 2 g PO BID lorazepam 0.5 mg tablet 0.5 mg PO DAILY PRN (Reason: Anxiety) glucosamine-chondroitin 900 mg tablet 900 mg PO BID Delta 8 Hemp Gummy PO DAILY alendronate 70 mg tablet 70 mg PO PATINO omeprazole 20 MG capsule,delayed release(DR/EC) 20 mg PO DAILY cyanocobalamin (vitamin B-12) 5,000 MCG capsule 5,000 mcg PO DAILY oxycodone 5 mg tablet 5 mg PO QHS amlodipine 10 mg tablet 10 mg PO DAILY multivitamin Tablet 1 tab PO DAILY turmeric root extract 500 mg Tablet 500 mg PO DAILY acetaminophen 650 mg tablet extended release 650 mg PO Q6H PRN (Reason: Pain) omega-3 fatty acids 1,000 mg capsule 1,000 mg PO TID Primary Care Provider: Natasha Louis Referrals: Natasha Louis MD [Primary Care Provider] - 3-5 Days Disposition Disposition: Home, Self Care
[2022-10-02] MEDS: Ondansetron 4 MG/2 ML Vial IV (10:57)
[2022-10-02] MEDS: Morphine 4 MG/ML Syringe IV (10:57)
[2022-10-02 10:59] LABS: Absolute Lymphocyte Count 1.26 X10^3/uL (0.83-4.51); Absolute Neutrophil Count 6.8 X10^3/uL (2.0-7.7); Basophil# 0.04 X10^3/uL; Basophil% 0.4 % (0-1); Eosinophil# 0.22 X10^3/uL; Eosinophils% 2.4 % (0-5); Hemoglobin 12.9 g/dL (12.0-15.0); Lymphocyte # 1.26 X10^3/ul (0.83-4.51); Lymphocyte % 13.5 % (19-41); Mean Corp Hgb Conc 32.3 g/dL (32-36); Mean Corpuscular Hgb 31.1 pg (27.0-32.0); Mean Corpuscular Volume 96.4 fL (81-99); Mean Platelet Vol. 8.6 fl (6.2-12.0); Monocyte# 0.83 X10^3/uL; Monocyte% 8.9 % (0-10); NRBC Flagged by Analyzer 0 % (0-5); Neutrophil % 72.6 % (47-70); POSITIVE MORPHOLOGY YES; Platelet Count 295 K/mm3 (150-450); RBC Distribution Width CV 14.6 % (11.6-14.6); RBC Distribution Width SD 51.3 fl (35.1-43.9); Red Blood Count 4.15 M/mm3 (4.2-5.4); White Blood Count 9.4 K/mm3 (4.4-11.0)
[2022-10-02 11:00] LABS: Differential Indicated SCAN CRITERIA MET
[2022-10-02 11:13] LABS: ALB/GLOB Ratio 0.8 RATIO (0.9-2.4); AST(SGOT) 18 U/L (15-37); Alanine Aminotransfer ALT/SGPT 28 U/L (13-56); Albumin, Serum 3.3 g/dL (3.2-5.0); Alkaline Phosphatase 61 U/L (45-117); Anion Gap 6 (5-15); BUN 23 mg/dL (7-18); BUN/Creat Ratio 19.3 RATIO (10-20); Calcium,Total 9.7 mg/dL (8.5-10.1); Chloride 108 mmol/L (98-107); Creatinine, Serum 1.19 mg/dL (0.55-1.02); EST Glomerular Filtration Rate 46 mL/min (>60); Est Glom Filt Rate - Afr Amer 56 mL/min (>60); Estimated Creatinine Clearance 31.67 ml/min; Globulin 4.2 g/dL (2.2-4.2); Glucose 125 mg/dL (74-106); Potassium 3.4 mmol/L (3.5-5.1); Protein, Total 7.5 g/dL (6.4-8.2); Sodium Level 142 mmol/L (136-145)
[2022-10-02 11:33] LABS: Differential Comment SCANNED
[2022-10-02 11:41] LABS: Bacteria 0 SEEN /hpf (None Seen); Mucous, Urine 0 SEEN /hpf (<or=2+); Red Blood Cells-Urine 0 SEEN /hpf (0-5)
[2022-10-02 11:47] LABS: Color, Urine Yellow (Yellow); Glucose, Dipstick Normal (Normal); Ketone-Dipstick Negative (Negative); Leukocyte Esterase-Dipstick 25 /ul (Negative); Nitrite-Dipstick Negative (Negative); Occult Blood-Urine Negative /ul (Negative); Protein-Dipstick 30 mg/dl (Negative); Urine Bilirubin Dipstick Negative (Negative); Urine Clarity Clear (Clear); Urine Urobilinogen Normal (Normal)
[2022-10-02 11:57] LABS: Squamous Epithelial Cells - UA 0-5 SEEN /hpf (5-10); White Blood Cells 0-5 SEEN /hpf (0-5)
[2022-10-02 12:31] VITALS: O2SAT 95
[2022-10-02 13:32] VITALS: BP 181/72; PULSE 68; RESP 18; O2SAT 94
== END 2022-10-02 13:32 | disposition home or self-care (01) ==
PROVIDERS: Emergency Provider Emergency Medicine; PCP Internal Medicine; Visit Provider Emergency Medicine
DX: M54.9 Dorsalgia, unspecified (principal); J44.9 Chronic obstructive pulmonary disease, unspecified; M47.816 Spondylosis without myelopathy or radiculopathy, lumbar region; M47.814 Spondylosis without myelopathy or radiculopathy, thoracic region; I10 Essential (primary) hypertension; Z87.891 Personal history of nicotine dependence
CPT/HCPCS: 71275; 74174; 80053; 81001; 85025; 96361; 96374; 96375; 99285; J7030; Q9967; A4216; J2405

== ENCOUNTER 2022-12-30 12:40 | Emergency (ER) | payer MEDICARE, SELFPAY ==
[2022-12-30 12:40] VITALS: BP 109/86; PULSE 67; RESP 16; TEMP 36.6; O2SAT 95
[2022-12-30 12:42] VITALS: BMI 26.4
--- NOTE | 2022-12-30 13:09 | EX.ED.GENINJ ---
HPI <EMILEE Chaudhari - Last Filed: 12/30/22 13:33> History of Present Illness Chief Complaint: Laceration Narrative Narrative: Patient presenting today due to a wound on her left guido that she got after she was playing with her dog yesterday and the dog accidentally scratched her leg. She did clean the area really well last night but wanted to come in to be evaluated. She reports her tetanus is not up-to-date. She is not on any blood thinners. She denies any other injury. 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) Essential (primary) hypertension GERD (gastroesophageal reflux disease) History of deep venous thrombosis (DVT) of distal vein of right lower extremity Incontinence Multinodular goiter (nontoxic) Nonhealing surgical wound Nonrheumatic aortic valve stenosis Nonrheumatic mitral valve insufficiency DARRIUS (obstructive sleep apnea) Osteoporosis Peripheral vascular disease Pessary maintenance Postlaminectomy syndrome Pulmonary hypertension Renal artery stenosis Stage 1 mild COPD by GOLD classification Thoracic spondylosis without myelopathy Thyroid nodule Wound dehiscence, surgical Wound, open, back Home Medications aspirin 81 mg tablet,delayed release (Adult Low Dose Aspirin) 81 mg PO DAILY HEART HEALTH 08/13/18 [History Last Taken 07/23/22] clonidine HCl 0.3 mg tablet 0.3 mg PO TID BLOOD PRESSURE 08/13/18 [History Last Taken 07/23/22] hydralazine 100 mg tablet 100 mg PO Q6H BLOOD PRESSURE 08/13/18 [History Last Taken 07/24/22] labetalol 200 mg tablet 300 mg PO TID BLOOD PRESSURE 08/13/18 [History Last Taken 07/23/22] lisinopril 10 mg tablet 10 mg PO DAILY blood pressure 12/01/18 [History Last Taken 07/23/22] cyanocobalamin (vitamin B-12) 5,000 mcg capsule 5,000 mcg PO DAILY supplement 06/08/19 [History Last Taken 07/23/22] omeprazole 20 mg capsule,delayed release 20 mg PO DAILY acid reflux 06/08/19 [History Last Taken 07/23/22] cholecalciferol (vitamin D3) 50 mcg (2,000 unit) capsule 50 mcg PO DAILY SUPPLEMENT 06/19/21 [History Last Taken 07/23/22] zinc 50 mg tablet 50 mg PO DAILY SUPPLEMENT 06/19/21 [History Last Taken 07/23/22] alendronate 70 mg tablet 70 mg PO PATINO BONES 12/29/21 [History Last Taken 07/22/22] amlodipine 10 mg tablet 10 mg PO DAILY BLOOD PRESSURE 07/24/22 [History Last Taken 07/23/22] multivitamin 1 tab PO DAILY HEALTH MAINTENANCE 07/24/22 [History Last Taken 07/24/22] turmeric root extract 500 mg tablet 500 mg PO DAILY SUPPLEMENT 07/24/22 [History Last Taken 07/24/22] acetaminophen 650 mg tablet,extended release 650 mg PO Q6H PRN Pain 09/11/22 [History Last Taken Unknown] calcium citrate 250 mg PO BID 09/11/22 [History Last Taken Unknown] docusate sodium 100 mg tablet 100 mg PO 4X/DAY PRN Constipation 09/11/22 [History Last Taken Unknown] furosemide 20 mg tablet (Lasix) 20 mg PO DAILY PRN edema 09/11/22 [History Last Taken Unknown] lorazepam 0.5 mg tablet 0.5 mg PO DAILY PRN Anxiety 09/11/22 [History Last Taken Unknown] methylcellulose (laxative) (Citrucel Sugar Free oral powder) 2 g PO BID 09/11/22 [History Last Taken Unknown] omega-3 fatty acids 1,000 mg capsule 1,000 mg PO TID SUPPLEMENT 09/11/22 [History Last Taken Unknown] Delta 8 Hemp Gummy PO DAILY 09/12/22 [History Last Taken Unknown] antiarthritic combination no.2 900 mg tablet (glucosamine-chondroitin) 900 mg PO BID 09/12/22 [History Last Taken Unknown] biotin 10,000 mcg capsule 10,000 mcg PO TID SUPPLEMENT 09/12/22 [History Last Taken Unknown] cyclobenzaprine 10 mg tablet 10 mg PO TID PRN muscle spasm #30 tabs 10/10/22 [Rx Last Taken Unknown] dexamethasone 0.5 mg/5 mL oral elixir 0.5 mg (5 mL) PO TID #237 mL 12/13/22 [Rx Last Taken Unknown] cephalexin 500 mg capsule 500 mg PO Q6 5 days #20 CAPSULES 12/30/22 [Rx Last Taken Unknown] Allergy/AdvReac Type Severity Reaction Status Date / Time bisoprolol Allergy bleeding Verified 12/30/22 12:43 levofloxacin [From Levaquin] Allergy anxiety Verified 12/30/22 12:43 meloxicam Allergy bleeding Verified 12/30/22 12:43 Sulfa (Sulfonamide Allergy hives Verified 12/30/22 12:43 Antibiotics) codeine AdvReac Other Verified 12/30/22 12:43 Family History Mother CAD (coronary artery disease) <65 Daughter Breast cancer Sister Breast cancer Father , at age 53 Brain aneurysm Heart disease Daughter Cancer Thyroid Cancer Uncle Myocardial infarction Uncle Myocardial infarction Surgical History History of bunionectomy of right great toe History of carpal tunnel release History of cataract surgery History of left hip replacement History of left knee replacement History of open reduction and internal fixation (ORIF) procedure History of partial hysterectomy History of stent insertion of renal artery (~07/30/18) Hx of repair of dissecting thoracic aortic aneurysm, [place] type B (~09/04/18) Previous back surgery S/P lumbar fusion S/P thyroid biopsy (~12/2021) Status post right knee replacement Social History household members: spouse current occupational status: 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 Smoking Status: Former smoker quit date: 07/15/74 pack-years: 9 Electronic Cigarette Use: not used alcohol intake: current alcohol intake frequency: a few times a month substance use type: does not use caffeine: Yes Type: coffee Number of servings: 1 what type of physical activity do you participate in: walking and weight training frequency: 3-4 times per week duration: 60-90 minutes/day seatbelt use: always do you feel safe at home: Yes additional social history: -Matthew BEE <EMILEE Chaudhari - Last Filed: 12/30/22 13:33> [facility] ED Constitutional Constitutional ED: Denies chills or fever(s) Cardiovascular Cardiovascular: Denies chest pain Respiratory/Chest Respiratory/Chest: Denies cough or dyspnea Gastrointestinal Gastrointestinal: Denies abdominal pain, nausea or vomiting Musculoskeletal Musculoskeletal: Denies arthralgias or myalgias Integumentary Reports laceration EXAM <EMILEE Chaudhari - Last Filed: 12/30/22 13:33> Physical Exam Const Vital Signs: 12/30/22 12:40 Temperature 98 F Temperature Source Temporal Pulse Rate 67 Respiratory Rate 16 Blood Pressure 109/86 H Blood Pressure Mean 93 Pulse Ox 95 Oxygen Delivery Method Room Air Positive well nourished, well developed and no apparent distress General Appearance ED: well developed HEENT Reports normocephalic and head/scalp atraumatic Mouth ED: Yes moist mucous membranes normal Eyes PERRL and EOMs intact bilaterally Neck full ROM and supple Chest Wall inspection of chest normal Resp normal respiratory effort and clear to auscultation bilaterally Cardio regular rate and regular rhythm GI soft to palpation, non-tender, non-distended and no masses Back/Spine normal ROM and normal to inspection Extremity full ROM Extremity Narrative: Skin tear to the anterior aspect of the L guido. About 4 inches in length. Neuro oriented x3, CN's II-XII intact bilaterally, moves all extremities, no focal motor deficits and no sensory deficits noted Sensorium / Orientation: awake and alert Psych mental status grossly normal and thought process normal Skin no rashes or lesions noted and no wounds <Dr. Joey Couch, DO - Last Filed: 12/30/22 22:35> Physical Exam Const Vital Signs: 12/30/22 12:40 Temperature 98 F Temperature Source Temporal Pulse Rate 67 Respiratory Rate 16 Blood Pressure 109/86 H Blood Pressure Mean 93 Pulse Ox 95 Oxygen Delivery Method Room Air MDM <EMILEE Chaudhari - Last Filed: 12/30/22 13:33> [facility] Narrative Medical decision making narrative: Patient presenting with a skin tear on her left guido that she got from her dog's nails when they were playing yesterday. She is not on any blood thinners, the area is not actively bleeding. It is about 4 inches in length. Area was cleaned with chlorhexidine and irrigated. Bacitracin ointment was applied and the wound was bandaged. I have educated patient on signs of infection to look out for. Because the wound was made from a dog's nails, I will place her on a few days of Keflex to prevent infection. Tetanus has been updated here. She will be discharged home in stable condition and is comfortable with plan. She is to follow-up with PCP <Dr. Joey Couch, DO - Last Filed: 12/30/22 22:35> [facility] Narrative Medical decision making narrative: Patient presenting with a skin tear on her left guido that she got from her dog's nails when they were playing yesterday. She is not on any blood thinners, the area is not actively bleeding. It is about 4 inches in length. Area was cleaned with chlorhexidine and irrigated. Bacitracin ointment was applied and the wound was bandaged. I have educated patient on signs of infection to look out for. Because the wound was made from a dog's nails, I will place her on a few days of Keflex to prevent infection. Tetanus has been updated here. She will be discharged home in stable condition and is comfortable with plan. She is to follow-up with PCP This patient was seen with a PA/[employer] WORK[employer] Individually assessed they patient including history and physical. I have reviewed everything on the chart that is available and agree with the documentation provided by the PA/[employer] WORKER including discussion about the assessment, treatment plan, discussion, and return precautions. Patient with bleeding wound that is been there overnight. Patient has a skin tear that would be amenable to sutures, however it is also been since yesterday so we would likely be able to place that he. The wound was irrigated and cleaned and a dressing was placed. She is given wound care directions and return precautions. Discharge Plan Triage Chief Complaint: Laceration ED Midlevel Provider: Mei Landers ED Provider: Joey Couch Dx/Rx/DC Orders Clinical Impression: Skin tear Instructions: ED Laceration Extremity Prescriptions: New cephalexin 500 mg capsule 500 mg PO Q6 5 Days Qty: 20 0RF No Action biotin 10,000 mcg capsule 10,000 mcg PO TID aspirin [Adult Low Dose Aspirin] 81 mg tablet,delayed release (DR/EC) 81 mg PO DAILY labetalol 200 mg tablet 300 mg PO TID clonidine HCl 0.3 mg tablet 0.3 mg PO TID hydralazine 100 mg tablet 100 mg PO Q6H docusate sodium 100 mg tablet 100 mg PO 4X/DAY PRN (Reason: Constipation) lisinopril 10 mg tablet 10 mg PO DAILY zinc 50 mg tablet 50 mg PO DAILY cholecalciferol (vitamin D3) 50 mcg (2,000 unit) capsule 50 mcg PO DAILY furosemide [Lasix] 20 mg tablet 20 mg PO DAILY PRN (Reason: edema) calcium citrate 250 mg calcium tablet 250 mg PO BID Citrucel Sugar Free Powder 2 g PO BID lorazepam 0.5 mg tablet 0.5 mg PO DAILY PRN (Reason: Anxiety) glucosamine-chondroitin 900 mg tablet 900 mg PO BID Delta 8 Hemp Gummy PO DAILY cyclobenzaprine 10 mg tablet 10 mg PO TID PRN (Reason: muscle spasm) Qty: 30 0RF dexamethasone 0.5 mg/5 mL elixir 0.5 mg PO TID Qty: 237 0RF Rx Instructions: 5 mL swish and spit three to four times daily. Keep the medication in the mouth for five minutes prior to spitting it out. Do not rinse afterward and avoid eating or drinking for 30 minutes. alendronate 70 mg tablet 70 mg PO PATINO omeprazole 20 MG capsule,delayed release(DR/EC) 20 mg PO DAILY cyanocobalamin (vitamin B-12) 5,000 MCG capsule 5,000 mcg PO DAILY amlodipine 10 mg tablet 10 mg PO DAILY multivitamin Tablet 1 tab PO DAILY turmeric root extract 500 mg Tablet 500 mg PO DAILY acetaminophen 650 mg tablet extended release 650 mg PO Q6H PRN (Reason: Pain) omega-3 fatty acids 1,000 mg capsule 1,000 mg PO TID Primary Care Provider: Natasha Louis Referrals: Natasha Louis MD [Primary Care Provider] - 5-7 Days Activity Restrictions/Additional Instructions: When out in public, keep area covered with antibiotic ointment and bandage. You can leave it open to air at home. Wash it daily with soap and water. Follow-up with PCP and return for any concerns for infection. Take antibiotic as prescribed. Disposition Disposition: Home, Self Care Discharge Date/Time: 12/30/22 13:41
[2022-12-30] MEDS: Diphth,Pertuss(Acell),Tet Vac 0.5 ML Vial IM (13:22)
== END 2022-12-30 13:41 | disposition home or self-care (01) ==
PROVIDERS: Emergency Provider Student in an Organized Health Care Education/Training Program; PCP Internal Medicine; Visit Provider Student in an Organized Health Care Education/Training Program
DX: S81.812A Laceration without foreign body, left lower leg, initial encounter (principal); J44.9 Chronic obstructive pulmonary disease, unspecified; I10 Essential (primary) hypertension; Z87.891 Personal history of nicotine dependence; Z23 Encounter for immunization; W26.8XXA Contact with other sharp object(s), not elsewhere classified, initial encounter
CPT/HCPCS: 90471; 90715; 99282

== ENCOUNTER → 2023-01-09 | Outpatient (CLI) | payer MEDICARE, SELFPAY ==
--- NOTE | 2023-01-09 11:34 | US_ITS ---
STUDY: SUPERFICIAL ULTRASOUND - LEFT ANTERIOR TIBIA. REASON FOR EXAM: Female, 82 years old. Leg injury, assess for abscess TECHNIQUE: A superficial ultrasound was performed with real-time and static alvarez-scale imaging. COMPARISON: None. FINDINGS: A superficial wound is seen at the site of concern. There is a 1.4 cm x 0.9 cm x 0.3 cm irregular fluid collection in the medial to the overlying wound. This may represent either resolving hematoma or possible abscess. US/Ext Non Vasc Limited/Soft Tiss IMPRESSION: 1.4 cm x 0.9 cm x 0.3 cm irregular fluid collection in the medial aspect of the wound. This may represent either a resolving hematoma or possible early abscess. Electronically Signed: Selvin Price MD at 15:26 EDT ,
== END | disposition home or self-care (01) ==
LOC: US 11:33
PROVIDERS: PCP Internal Medicine; Referring Provider Internal Medicine; Visit Provider Internal Medicine
DX: S89.92XA Unspecified injury of left lower leg, initial encounter (principal); X58.XXXA Exposure to other specified factors, initial encounter
CPT/HCPCS: 76882

== ENCOUNTER → 2023-01-11 | Outpatient (CLI) | payer MEDICARE, SELFPAY ==
--- NOTE | 2023-01-11 10:02 | VDLE_ITS ---
Reason For Study: Left leg pain RIGHT LEFT CFV is compressible, spontaneous, phasic, GSV is normal. competent and demonstrates normal CFV is compressible, spontaneous, phasic, augmentation. competent, and demonstrates normal Procedure augmentation. This is a venous duplex using B-mode, color FV is compressible, spontaneous, phasic, flow and spectral Doppler. competent and demonstrates normal Exam performed in department. augmentation. A preliminary report was called and/or faxed POP V is compressible, spontaneous, phasic, to Wendy CORONEL. competent and demonstrates normal augmentation. T/P Trunk is compressible. PTV is compressible. LT PerV is compressible. Acute deep vein thrombosis is noted in the Soleus V. It is dilated and NONCOMPRESSIBLE. VL/Venous Duplex US, Unilateral Interpretation Summary Acute deep venous thrombosis left soleus vein Patent and compressible left great saphenous vein Normal flow patterns right common femoral vein Ordering Physician: Natasha Louis Referring Physician: Natasha Louis Performed By: Adrienne Andrews RVT
== END | disposition home or self-care (01) ==
LOC: CVS 10:01
PROVIDERS: PCP Internal Medicine; Visit Provider Internal Medicine
DX: M79.605 Pain in left leg (principal)
CPT/HCPCS: 93971

== ENCOUNTER 2023-01-18 17:04 | Emergency (ER) | payer MEDICARE, SELFPAY ==
[2023-01-18 17:04] VITALS: BP 151/83; PULSE 65; RESP 22; TEMP 36.5; O2SAT 96; BMI 25.4
--- NOTE | 2023-01-18 17:24 | EDS_ITS ---
HPI History of Present Illness HPI Narrative: Patient presents with redness and swelling to her left lower leg that has been constant for the last 10 days. Patient states that her dog scratched her 10 days ago. Patient states she came to the emergency department the day after it occurred because it occurred late at night. Patient states that it was too old to be sutured at that time. Patient was given a tetanus booster at that time. Patient followed up with her primary care physician after that and was given a prescription for doxycycline. Patient states she completed the doxycycline. Patient states the swelling and redness became worse after finishing the doxycycline. Patient denies any fevers or chills. Patient denies any discharge or drainage. Patient describes her pain as burning. Patient states it is worse with walking. 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) Essential (primary) hypertension GERD (gastroesophageal reflux disease) History of deep venous thrombosis (DVT) of distal vein of right lower extremity Incontinence Multinodular goiter (nontoxic) Nonhealing surgical wound Nonrheumatic aortic valve stenosis Nonrheumatic mitral valve insufficiency DARRIUS (obstructive sleep apnea) Osteoporosis Peripheral vascular disease Pessary maintenance Postlaminectomy syndrome Pulmonary hypertension Renal artery stenosis Stage 1 mild COPD by GOLD classification Thoracic spondylosis without myelopathy Thyroid nodule Wound dehiscence, surgical Wound, open, back Home Medications aspirin 81 mg tablet,delayed release (Adult Low Dose Aspirin) 81 mg PO DAILY HEART HEALTH 08/13/18 [History Last Taken 07/23/22] clonidine HCl 0.3 mg tablet 0.3 mg PO TID BLOOD PRESSURE 08/13/18 [History Last Taken 07/23/22] hydralazine 100 mg tablet 100 mg PO Q6H BLOOD PRESSURE 08/13/18 [History Last Taken 07/24/22] labetalol 200 mg tablet 300 mg PO TID BLOOD PRESSURE 08/13/18 [History Last Taken 07/23/22] lisinopril 10 mg tablet 10 mg PO DAILY blood pressure 12/01/18 [History Last Taken 07/23/22] cyanocobalamin (vitamin B-12) 5,000 mcg capsule 5,000 mcg PO DAILY supplement 06/08/19 [History Last Taken 07/23/22] omeprazole 20 mg capsule,delayed release 20 mg PO DAILY acid reflux 06/08/19 [History Last Taken 07/23/22] cholecalciferol (vitamin D3) 50 mcg (2,000 unit) capsule 50 mcg PO DAILY SUPPLEMENT 06/19/21 [History Last Taken 07/23/22] zinc 50 mg tablet 50 mg PO DAILY SUPPLEMENT 06/19/21 [History Last Taken 07/23/22] alendronate 70 mg tablet 70 mg PO PATINO BONES 12/29/21 [History Last Taken 07/22/22] amlodipine 10 mg tablet 10 mg PO DAILY BLOOD PRESSURE 07/24/22 [History Last Taken 07/23/22] multivitamin 1 tab PO DAILY HEALTH MAINTENANCE 07/24/22 [History Last Taken 07/24/22] turmeric root extract 500 mg tablet 500 mg PO DAILY SUPPLEMENT 07/24/22 [History Last Taken 07/24/22] acetaminophen 650 mg tablet,extended release 650 mg PO Q6H PRN Pain 09/11/22 [History Last Taken Unknown] calcium citrate 250 mg PO BID 09/11/22 [History Last Taken Unknown] docusate sodium 100 mg tablet 100 mg PO 4X/DAY PRN Constipation 09/11/22 [History Last Taken Unknown] furosemide 20 mg tablet (Lasix) 20 mg PO DAILY PRN edema 09/11/22 [History Last Taken Unknown] methylcellulose (laxative) (Citrucel Sugar Free oral powder) 2 g PO BID 09/11/22 [History Last Taken Unknown] omega-3 fatty acids 1,000 mg capsule 1,000 mg PO TID SUPPLEMENT 09/11/22 [ History Last Taken Unknown] Delta 8 Hemp Gummy PO DAILY 09/12/22 [History Last Taken Unknown] antiarthritic combination no.2 900 mg tablet (glucosamine-chondroitin) 900 mg PO BID 09/12/22 [History Last Taken Unknown] biotin 10,000 mcg capsule 10,000 mcg PO TID SUPPLEMENT 09/12/22 [History Last Taken Unknown] cyclobenzaprine 10 mg tablet 10 mg PO TID PRN muscle spasm #30 tabs 10/10/22 [Rx Last Taken Unknown] dexamethasone 0.5 mg/5 mL oral elixir 0.5 mg (5 mL) PO TID #237 mL 01/02/23 [Rx Last Taken Unknown] gabapentin 300 mg capsule 300 mg PO BID 01/02/23 [History Last Taken Unknown] lorazepam 0.5 mg tablet 0.5 mg PO DAILY PRN Anxiety #30 tabs 01/02/23 [Rx Last Taken Unknown] pravastatin 40 mg tablet 40 mg PO QHS #30 tabs 01/10/23 [Rx Last Taken Unknown] apixaban 5 mg (74 tabs) tablets in a dose pack ([employer] DVT-PE Treat 30D Start) See Rx Instructions PO PER PKG DIR #74 tabs 01/11/23 [Rx Last Taken Unknown] acyclovir 400 mg tablet 400 mg PO TID 01/18/23 [History Last Taken Unknown] amoxicillin 875 mg-potassium clavulanate 125 mg tablet 875 mg (0.875 x 875-125 mg) PO Q12H #20 TABLETS 01/18/23 [Rx Last Taken Unknown] Allergy/AdvReac Type Severity Reaction Status Date / Time bisoprolol Allergy bleeding Verified 01/18/23 16:27 levofloxacin [From Levaquin] Allergy anxiety Verified 01/18/23 16:27 meloxicam Allergy bleeding Verified 01/18/23 16:27 Sulfa (Sulfonamide Allergy hives Verified 01/18/23 16:27 Antibiotics) codeine AdvReac Other Verified 01/18/23 16:27 Family History Mother CAD (coronary artery disease) <65 Daughter Breast cancer Sister Breast cancer Father , at age 53 Brain aneurysm Heart disease Daughter Cancer Thyroid Cancer Uncle Myocardial infarction Uncle Myocardial infarction Surgical History History of bunionectomy of right great toe History of carpal tunnel release History of cataract surgery History of left hip replacement History of left knee replacement History of open reduction and internal fixation (ORIF) procedure History of partial hysterectomy History of stent insertion of renal artery (~07/30/18) Hx of repair of dissecting thoracic aortic aneurysm, Micah type B (~09/04/18) Previous back surgery S/P lumbar fusion S/P thyroid biopsy (~12/2021) Status post right knee replacement Social History household members: spouse current occupational status: 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 Smoking Status: Former smoker quit date: 07/15/74 pack-years: 9 Electronic Cigarette Use: not used alcohol intake: current alcohol intake frequency: a few times a month substance use type: does not use caffeine: Yes Type: coffee Number of servings: 1 what type of physical activity do you participate in: walking and weight training frequency: 3-4 times per week duration: 60-90 minutes/day seatbelt use: always do you feel safe at home: Yes additional social history: -Matthew ROS ROS ED Constitutional Constitutional ED: Denies chills or fever(s) Eyes Eyes: Denies blurry vision or change in vision ENT ENT ED: Denies rhinorrhea or sore throat Cardiovascular Cardiovascular: Denies chest pain or palpitations Respiratory/Chest Respiratory/Chest: Denies cough or dyspnea Gastrointestinal Gastrointestinal: Denies nausea or vomiting Genitourinary Genitourinary ED: Denies dysuria or hematuria Musculoskeletal Musculoskeletal: Denies back pain or neck pain Integumentary Denies abscess or rash Neurologic Neurologic: Denies headache(s) or weakness Allergic/Immunologic Allergic/Immunologic ED: Denies mouth swelling or urticaria EXAM Physical Exam Const Vital Signs: 01/18/23 17:04 Temperature 97.7 F L Temperature Source Temporal Pulse Rate 65 Respiratory Rate 22 H Blood Pressure 151/83 H Blood Pressure Mean 105 Pulse Ox 96 Oxygen Delivery Method Room Air Positive well nourished and well developed General Appearance ED: well developed and NAD HEENT Reports moist mucous membranes Neck full ROM and supple Extremity Extremity Narrative: There is a 6 cm L-shaped healing laceration over the anteromedial aspect of the left lower leg. There is some mild erythema. There is no discharge or drainage. There are some mild edema around the wound. There is mild warmth. There is no calf tenderness. There is no pain with dorsiflexion of the ankle. Posterior tibial pulses are equal bilaterally. Sensation was intact to light touch bilaterally in the lower extremities. Strength is 5/5 bilateral in the lower extremities. Neuro oriented x3, CN's II-XII intact bilaterally, moves all extremities and no sensory deficits noted Sensorium / Orientation: alert Motor Exam: strength 5/5 throughout Psych mental status grossly normal MDM MDM MDM Narrative Medical decision making narrative: Differential diagnosis includes cellulitis, delayed wound healing, sepsis, and wound infection. CBC will be obtained to assess for leukocytosis and anemia. Basic metabolic profile will be obtained to assess for electrolyte abnormality and renal function. Lab Data Attestation: I reviewed the patient's lab results. Lab results narrative: CBC was reviewed. There is a mild anemia with a hemoglobin of 11.6 and hematocrit 36.8. Basic metabolic profile was reviewed. BUN was slightly elevated at 30 and creatinine was slightly elevated at 1.19. These are co nsistent with prior results. Anion gap was normal at 2. Labs: Laboratory Results - last 24 hr 01/18/23 17:35 WBC 8.5 RBC 3.82 L Hgb 11.6 L Hct 36.8 L MCV 96.3 MCH 30.4 MCHC 31.5 L RDW Std Deviation 54.8 H RDW Coeff of Tom 15.6 H Plt Count 295 MPV 8.6 Immature Gran % (Auto) 2.200 H Neut % (Auto) 69.9 Lymph % (Auto) 17.3 L [place] % (Auto) 8.7 Eos % (Auto) 1.3 Baso % (Auto) 0.6 Absolute Neuts (auto) 6.0 Absolute Lymphs (auto) 1.47 Nucleated RBC % 0 Treatment and Re-Evaluation Narrative: Patient was given a dose of Unasyn here. Patient was advised of her findings. Patient was given a prescription for Augmentin. Patient was instructed to follow-up with her primary care physician in 5 to 7 days. Patient understood and was agreeable with the plan. All questions were answered. Discharge Plan Triage Chief Complaint: Wound ED Provider: Newton Jaimes Dx/Rx/DC Orders Clinical Impression: Cellulitis of left lower leg, Wound of left lower extremity Instructions: ED Cellulitis Prescriptions: New amoxicillin-pot clavulanate [amoxicillin-pot clavulanate] 875-125 mg tablet 875 mg PO Q12H Qty: 20 0RF No Action biotin 10,000 mcg capsule 10,000 mcg PO TID aspirin [Adult Low Dose Aspirin] 81 mg tablet,delayed release (DR/EC) 81 mg PO DAILY labetalol 200 mg tablet 300 mg PO TID clonidine HCl 0.3 mg tablet 0.3 mg PO TID hydralazine 100 mg tablet 100 mg PO Q6H docusate sodium 100 mg tablet 100 mg PO 4X/DAY PRN (Reason: Constipation) lisinopril 10 mg tablet 10 mg PO DAILY zinc 50 mg tablet 50 mg PO DAILY cholecalciferol (vitamin D3) 50 mcg (2,000 unit) capsule 50 mcg PO DAILY furosemide [Lasix] 20 mg tablet 20 mg PO DAILY PRN (Reason: edema) calcium citrate 250 mg calcium tablet 250 mg PO BID Citrucel Sugar Free Powder 2 g PO BID glucosamine-chondroitin 900 mg tablet 900 mg PO BID Delta 8 Hemp Gummy PO DAILY cyclobenzaprine 10 mg tablet 10 mg PO TID PRN (Reason: muscle spasm) Qty: 30 0RF pravastatin 40 mg tablet 40 mg PO QHS Qty: 30 0RF gabapentin 300 mg capsule 300 mg PO BID dexamethasone 0.5 mg/5 mL elixir 0.5 mg PO TID Qty: 237 0RF Rx Instructions: 5 mL swish and spit three to four times daily. Keep the medication in the mouth for five minutes prior to spitting it out. Do not rinse afterward and avoid eating or drinking for 30 minutes. lorazepam 0.5 mg tablet 0.5 mg PO DAILY PRN (Reason: Anxiety) Qty: 30 0RF acyclovir 400 mg tablet 400 mg PO TID alendronate 70 mg tablet 70 mg PO PATINO omeprazole 20 MG capsule,delayed release(DR/EC) 20 mg PO DAILY cyanocobalamin (vitamin B-12) 5,000 MCG capsule 5,000 mcg PO DAILY amlodipine 10 mg tablet 10 mg PO DAILY multivitamin Tablet 1 tab PO DAILY turmeric root extract 500 mg Tablet 500 mg PO DAILY acetaminophen 650 mg tablet extended release 650 mg PO Q6H PRN (Reason: Pain) omega-3 fatty acids 1,000 mg capsule 1,000 mg PO TID Eliquis DVT-PE Treat 30D Start 5 mg (74 tabs) tablets,dose pack See Rx Instructions PO PER PKG DIR Qty: 74 0RF Rx Instructions: PO PER PKG DIR Primary Care Provider: Natasha Louis Referrals: Natasha Louis MD [Primary Care Provider] - 5-7 Days Disposition Disposition: Home, Self Care
[2023-01-18 18:00] LABS: Absolute Lymphocyte Count 1.47 X10^3/uL (0.83-4.51); Basophil# 0.05 X10^3/uL; Basophil% 0.6 % (0-1); Eosinophil# 0.11 X10^3/uL; Eosinophils% 1.3 % (0-5); Hematocrit 36.8 % (37-47); Hemoglobin 11.6 g/dL (12.0-15.0); Lymphocyte # 1.47 X10^3/ul (0.83-4.51); Lymphocyte % 17.3 % (19-41); Mean Corp Hgb Conc 31.5 g/dL (32-36); Mean Corpuscular Hgb 30.4 pg (27.0-32.0); Mean Corpuscular Volume 96.3 fL (81-99); Mean Platelet Vol. 8.6 fl (6.2-12.0); Monocyte# 0.74 X10^3/uL; Monocyte% 8.7 % (0-10); NRBC Flagged by Analyzer 0 % (0-5); Neutrophil # 5.95 X10^3/uL (2.7-7.7); Neutrophil % 69.9 % (47-70); Platelet Count 295 K/mm3 (150-450); RBC Distribution Width CV 15.6 % (11.6-14.6); RBC Distribution Width SD 54.8 fl (35.1-43.9); Red Blood Count 3.82 M/mm3 (4.2-5.4); White Blood Count 8.5 K/mm3 (4.4-11.0)
--- NOTE | 2023-01-18 18:04 | ED.RN ---
called pharmacy to inquire about sending antibiotic
[2023-01-18 18:24] LABS: Anion Gap 2 (5-15); BUN 30 mg/dL (7-18); BUN/Creat Ratio 25.2 RATIO (10-20); Calcium,Total 8.7 mg/dL (8.5-10.1); Chloride 108 mmol/L (98-107); Creatinine, Serum 1.19 mg/dL (0.55-1.02); EST Glomerular Filtration Rate 46 mL/min (>60); Est Glom Filt Rate - Afr Amer 56 mL/min (>60); Estimated Creatinine Clearance 30.39 ml/min; Glucose 110 mg/dL (74-106); Potassium 3.9 mmol/L (3.5-5.1); Sodium Level 139 mmol/L (136-145)
[2023-01-18 19:36] VITALS: BP 165/71; PULSE 56; RESP 16; TEMP 37; O2SAT 95
== END 2023-01-18 20:06 | disposition home or self-care (01) ==
PROVIDERS: Emergency Provider Emergency Medicine; PCP Internal Medicine; Visit Provider Emergency Medicine
DX: L03.116 Cellulitis of left lower limb (principal); J44.9 Chronic obstructive pulmonary disease, unspecified; Z87.891 Personal history of nicotine dependence; I10 Essential (primary) hypertension; Z79.01 Long term (current) use of anticoagulants; S81.812D Laceration without foreign body, left lower leg, subsequent encounter; W26.8XXD Contact with other sharp object(s), not elsewhere classified, subsequent encounter
CPT/HCPCS: 80048; 85025; 96365; 96366; 99283; J7050; A4216; J0295

== ENCOUNTER 2023-02-08 09:00 | Outpatient (RCR) | payer MEDICARE, SELFPAY ==
[2023-01-25 09:41] VITALS: BP 133/72; PULSE 64; RESP 18; TEMP 36.3; BMI 26.2
--- NOTE | 2023-01-25 13:35 | PCM.WC.HP ---
History of Present Illness Date of Service: 01/25/23 Chief Complaint: nonhealing traumatic wound of left guido History of Wound: Ijeoma is an 82 yo female that presents for evaluation and treatment of a nonhealing traumatic wound of her left guido that occurred from a skin tear while she was playing with her dog. This occurred on January 04, 2023. She was seen in ER and treated for cellulitis and DVT. She has 3 days left of treatment of Augmentin. She is on Eliquis for treatment of the DVT. She has a h/o aortic aneurysm with repair and smoking history with mild COPD. She also has a h/o renal artery stenosis. She has been using Adaptic and nonadherent dressing and gauze to wound except when she was home and she left it open to air. She has pain and edema L leg. Does not wear compression typically. Has mild edema to right lower leg as well. She denies odor, erythema, fever, chills. 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) Essential (primary) hypertension GERD (gastroesophageal reflux disease) History of deep venous thrombosis (DVT) of distal vein of right lower extremity Incontinence Multinodular goiter (nontoxic) Nonhealing surgical wound Nonrheumatic aortic valve stenosis Nonrheumatic mitral valve insufficiency DRARIUS (obstructive sleep apnea) Osteoporosis Peripheral vascular disease Pessary maintenance Postlaminectomy syndrome Pulmonary hypertension Renal artery stenosis Stage 1 mild COPD by GOLD classification Thoracic spondylosis without myelopathy Thyroid nodule Wound dehiscence, surgical Wound, open, back Home Medications aspirin 81 mg tablet,delayed release (Adult Low Dose Aspirin) 81 mg PO DAILY HEART HEALTH 08/13/18 [History Last Taken 07/23/22] clonidine HCl 0.3 mg tablet 0.3 mg PO TID BLOOD PRESSURE 08/13/18 [History Last Taken 07/23/22] hydralazine 100 mg tablet 100 mg PO Q6H BLOOD PRESSURE 08/13/18 [History Last Taken 07/24/22] labetalol 200 mg tablet 300 mg PO TID BLOOD PRESSURE 08/13/18 [History Last Taken 07/23/22] lisinopril 10 mg tablet 10 mg PO DAILY blood pressure 12/01/18 [History Last Taken 07/23/22] cyanocobalamin (vitamin B-12) 5,000 mcg capsule 5,000 mcg PO DAILY supplement 06/08/19 [History Last Taken 07/23/22] omeprazole 20 mg capsule,delayed release 20 mg PO DAILY acid reflux 06/08/19 [History Last Taken 07/23/22] cholecalciferol (vitamin D3) 50 mcg (2,000 unit) capsule 50 mcg PO DAILY SUPPLEMENT 06/19/21 [History Last Taken 07/23/22] zinc 50 mg tablet 50 mg PO DAILY SUPPLEMENT 06/19/21 [History Last Taken 07/23/22] alendronate 70 mg tablet 70 mg PO PATINO BONES 12/29/21 [History Last Taken 07/22/22] amlodipine 10 mg tablet 10 mg PO DAILY BLOOD PRESSURE 07/24/22 [History Last Taken 07/23/22] multivitamin 1 tab PO DAILY HEALTH MAINTENANCE 07/24/22 [History Last Taken 07/24/22] turmeric root extract 500 mg tablet 500 mg PO DAILY SUPPLEMENT 07/24/22 [History Last Taken 07/24/22] calcium citrate 250 mg PO BID 09/11/22 [History Last Taken Unknown] docusate sodium 100 mg tablet 100 mg PO 4X/DAY PRN Constipation 09/11/22 [History Last Taken Unknown] furosemide 20 mg tablet (Lasix) 20 mg PO DAILY PRN edema 09/11/22 [History Last Taken Unknown] omega-3 fatty acids 1,000 mg capsule 1,000 mg PO TID SUPPLEMENT 09/11/22 [History Last Taken Unknown] Delta 8 Hemp Gummy PO DAILY 09/12/22 [History Last Taken Unknown] antiarthritic combination no.2 900 mg tablet (glucosamine-chondroitin) 900 mg PO BID 09/12/22 [History Last Taken Unknown] biotin 10,000 mcg capsule 10,000 mcg PO TID SUPPLEMENT 09/12/22 [History Last Taken Unknown] cyclobenzaprine 10 mg tablet 10 mg PO TID PRN muscle spasm #30 tabs 10/10/22 [Rx Last Taken Unknown] gabapentin 300 mg capsule 300 mg PO BID 01/02/23 [History Last Taken Unknown] lorazepam 0.5 mg tablet 0.5 mg PO DAILY PRN Anxiety #30 tabs 01/02/23 [Rx Last Taken Unknown] pravastatin 40 mg tablet 40 mg PO QHS #30 tabs 01/10/23 [Rx Last Taken Unknown] apixaban 5 mg (74 tabs) tablets in a dose pack (Eliquis DVT-PE Treat 30D Start) See Rx Instructions PO PER PKG DIR #74 tabs 01/11/23 [Rx Last Taken Unknown] acyclovir 400 mg tablet 400 mg PO TID 01/18/23 [History Last Taken Unknown] amoxicillin 875 mg-potassium clavulanate 125 mg tablet 875 mg (0.875 x 875-125 mg) PO Q12H #20 TABLETS 01/18/23 [Rx Last Taken Unknown] Allergy/AdvReac Type Severity Reaction Status Date / Time bisoprolol Allergy bleeding Verified 01/18/23 16:27 levofloxacin [From Levaquin] Allergy anxiety Verified 01/18/23 16:27 meloxicam Allergy bleeding Verified 01/18/23 16:27 Sulfa (Sulfonamide Allergy hives Verified 01/18/23 16:27 Antibiotics) codeine AdvReac Other Verified 01/18/23 16:27 Family History Mother CAD (coronary artery disease) <65 Daughter Breast cancer Sister Breast cancer Father , at age 53 Brain aneurysm Heart disease Daughter Cancer Thyroid Cancer Uncle Myocardial infarction Uncle Myocardial infarction Surgical History History of bunionectomy of right great toe History of carpal tunnel release History of cataract surgery History of left hip replacement History of left knee replacement History of open reduction and internal fixation (ORIF) procedure History of partial hysterectomy History of stent insertion of renal artery (~07/30/18) Hx of repair of dissecting thoracic aortic aneurysm, Micah type B (~09/04/18) Previous back surgery S/P lumbar fusion S/P thyroid biopsy (~12/2021) Status post right knee replacement Social History household members: spouse current occupational status: 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 Smoking Status: Former smoker quit date: 07/15/74 pack-years: 9 Electronic Cigarette Use: not used alcohol intake: current alcohol intake frequency: a few times a month substance use type: does not use caffeine: Yes Type: coffee Number of servings: 1 what type of physical activity do you participate in: walking and weight training frequency: 3-4 times per week duration: 60-90 minutes/day seatbelt use: always do you feel safe at home: Yes additional social history: -Matthew BEE Constitutional Constitutional: Denies chills, fatigue or fever(s) Eyes Eyes: Denies blurry vision, change in vision or loss of vision ENT HEENT: Denies dysphagia, hearing loss or sore throat Cardiovascular Cardiovascular: Denies chest pain, edema or palpitations Respiratory/Chest Respiratory/Chest: Denies dry cough, dyspnea, dyspnea on exertion, productive cough or wheezing Gastrointestinal Gastrointestinal: Denies diarrhea, nausea or vomiting Genitourinary Genitourinary: Denies dysuria or polyuria Musculoskeletal Musculoskeletal: Denies arthralgias, joint stiffness or muscle weakness Integumentary Integumentary: Reports erythema and wounds Neurologic Neurologic: Denies dizziness, memory loss or weakness Psychiatric Psychiatric: Denies homicidal ideation or suicidal ideation Endocrine Endocrinology: Denies polydipsia, polyphagia or polyuria Hematologic/Lymphatic Hematologic/Lymphatic: Denies easy bleeding or easy bruising Allergic/Immunologic Allergic/Immunologic: Denies throat swelling, tongue swelling or urticaria Vital Signs Vital Signs Vital Signs: 01/25/23 09:41 Temperature 97.3 F L Temperature Source Temporal Pulse Rate 64 Respiratory Rate 18 Blood Pressure 133/72 H Blood Pressure Mean 92 Blood Pressure Source Monitor Blood Pressure Position Semi-Fowlers Blood Pressure Location Left Arm Weight Weight: 69.4 kg Body Mass Index (BMI) 26.2 Physical Exam Const alert, oriented x3 and no apparent distress General Appearance: cooperative and comfortable HEENT normocephalic and head/scalp atraumatic Resp normal respiratory effort Effort and Inspection: able to speak in complete sentences Cardio regular rate and regular rhythm Skin Wounds: wounds noted Wound Narrative: as in clinical panel Psych mental status grossly normal, thought process normal, cooperative and affect normal Debridement Note Debridement Note Wound debrided: left guido Laterality: Left Type of Debridement: Excisional debridement Anesthesia Used: 4% Lidocaine Solution, 5% Lidocaine Gel and Cetacaine Depth: Down to and including healthy tissue and in the subcutaneous layer Percentage of wound debrided: 100 Instrument Used: 5mm curette, #15 blade and Forceps Tissue Removed: Yellow slough, devitalized tissue Severity: Fat Layer Exposed Amount of bleeding with debridement: Mild Bleeding Controlled with: Pressure and Compression and gauze Patient tolerated procedure: Patient tolerated procedure well Post-Debridement Measurements and Additional Note: Post-Debridement Measurements/Treatment - Nurse 1 - General Ulcer Assessment Start: 01/25/23 09:37 Freq: Status: Active Protocol: PHONG.LOWEXT Activity Type Activity Date Activity User E-sign Co-sign Detail Recorded Client Recorded Date Recorded By Document 01/25/23 09:41 [id number] 01/25/23 09:56 KAREN 01/25/23 09:41 - Today's Visit Information Type of service Initial Visit Arrival Mode Ambulatory, Walker Patient Identification Verified (Name & Yes ) Patient Requires Transmission-Based No Precautions Height and Weight Height 5 ft 4 in Weight 69.4 kg Weight in Pounds 153.0 lbs Body Mass Index (BMI) 26.2 BMI Classification Overweight BSA - Dashawn 1.75 Vital Signs Temperature (97.8 F-99.1 F) 97.3 F L Temperature Source Temporal Pulse Rate (60-100) 64 Pulse Location Monitor Respiratory Rate (12-18) 18 Respiratory rate source Observation Blood Pressure (90/60-120/80) 133/72 H Blood Pressure Mean 92 Source Monitor Position Semi-Fowlers Blood Pressure Location Left Arm History Since Last Visit- (Skip if this is Patient's initial visit) Left Footwear Regular Shoe Right Footwear Regular Shoe Pain Scale: 0-10 Numeric Is Patient Pain Free? Yes Lower Extremity Assessment/ Foot Assessment/ Toe Nail Assessment Right -Posterior Tibial Palpable Yes -Posterior Tibial Doppler Monophasic -Dorsalis Pedis Palpable Yes -Dorsalis Pedis Doppler Monophasic -Extremity Color Normal -Hair Growth on Legs No -Hair Growth on Toes No -Temperature of Extremity Warm -Capillary Refill Less than 3 Seconds -Dependent Rubor No -Blanched when Elevated Yes -Thick Yes -Discolored No -Deformed No -Improper Length & Hygeine No Left -Posterior Tibial Palpable No -Posterior Tibial Doppler Monophasic -Dorsalis Pedis Palpable No -Dorsalis Pedis Doppler Monophasic -Extremity Color Red -Hair Growth on Legs Yes -Hair Growth on Toes No -Temperature of Extremity Warm -Capillary Refill Less than 3 Seconds -Dependent Rubor Yes -Blanched when Elevated Yes -Thick Yes -Discolored No -Deformed No -Improper Length & Hygeine No Communication Assessment Preferred language Vietnamese Management Instructor Required No Able to Read Yes Able to Write Yes Right Hearing Abillity Normal Left Hearing Abillity Normal Visual Assistive Devices Glasses Teaching Assessment Preferences Verbal,Written, Audio/Visual, Demonstration Barriers to Learning None Readiness To Learn Good Willingness to Engage in Self Management Med Activies Readiness to Engage in Self Management Med Activities Anxiety Level Calm Cooperation Cooperative Perception Coherent Interest in Health Problem Asks Questions Education Importance Acknowledges Need Does Patient Smoke tobacco or other No substances Smoking Status Former smoker Is Patient Diabetic No Functional Assessment Recent Decline in Ability to Perform Denies Any Declines Assistive Device With Patient Yes List Device(s) with Patient walker Culture/Catholic/Electric Golf Cart Repairer Electric Golf Cart Repairer to contact place of uatsdin No Teaching: Wound Center Signs & Symptoms of Infection -Person Taught Patient -Teaching Method Discussion, Demonstration -Response to teaching Return demonstration, Verbalize understanding [facility] Orientation/ Contacting Physician -Person Taught Patient -Teaching Method Discussion, Demonstration -Response to teaching Return demonstration, Verbalize understanding - Nurse 1 - General Ulcer Measurement Start: 01/25/23 09:37 Freq: Status: Active Protocol: Activity Type Activity Date Activity User E-sign Co-sign Detail Recorded Client Recorded Date Recorded By Document 01/25/23 09:41 [id number] 01/25/23 09:56 01/25/23 09:41 Wound Center Nurse 1 2-left guido -Combined with other wound No -Current Size (cm) - Length 3.6 -Current Size (cm) - Width 2.8 -Current Size (cm) - Depth 0.2 -Total Square Cm 10.08 -Photo Taken Yes -Epithelialization None Present -Tunneling No -Undermining/Tunneling No -Circular Undermining No -Classification - Thickness Unclassifiable (Eschar Covered ) -Exudate Amt Small -Exudate Type Serosanguineous -Wound Margin Flat & Intact -Granulation Amt Small (1-33%) -Slough/Fibrin Yes -Necrosis Amt Large (67-100%) -Necrotic Tissue Type Eschar -Structure Exposed N/A -Texture (Kaitlin-wound Skin Appearance) Assessed, Localized Edema -Moisture (Kaitlin-wound Skin Appearance) Assessed,Dry/ Scaly -Color (Kaitlin-wound Skin Appearance) Assessed, Erythema -Temperature (Kaitlin-wound Skin No Abnormality Appearance) (Pt Warm) -Tenderness on Palpation (Kaitlin-wound No Skin Appearance) -Ulcer Cleansing Wound Cleanser -Foul Odor after Cleansing No -Anesthetic Used 5% Lidocaine Gel Lower Limb Edema Present Yes Right Calf (cm) 31.7 Right Ankle (cm) 23.3 Left Calf (cm) 34.7 Left Ankle (cm) 20.2 WC - Nurse 2 - General Ulcer CM Notes Start: 01/25/23 09:37 Freq: Status: Active Protocol: Activity Type Activity Date Activity User E-sign Co-sign Detail Recorded Client Recorded Date Recorded By Document 01/25/23 10:15 MW [id number] 01/25/23 10:46 MW 01/25/23 10:15 Wound Center Nurse 2 2-left guido -Time 10:17 -Correct Patient Yes -Correct Side, Site, Position Yes -Correct Procedure Yes -Procedure Performed Yes -Type of Procedure Debridement -Clinical Debridement Subcutaneous -Tissue Removed Subcutaneous -Post Debridement (cm) - Length 3.9 -Post Debridement (cm) - Width 2.5 -Post Debridement (cm) - Depth 0.2 -Total Square (Post) (cm) 9.75 -Area of Debridement (cm) - Length 3.9 -Area of Debridement (cm) - Width 2.5 -Total Square (Area) (cm) 9.75 -Tunneling No -Undermining/Tunneling Yes -Undermining/Tunneling Starts (O'clock 9 ) -Undermining/Tunneling Ends (O'clock) 10 -Maximum Distance (cm) 0.2 -Circular Undermining No -Wound/Ulcer Outcome Not Healed -Ulcer Cleansing Rinsed/ Irrigated with Saline -Foul Odor after Cleansing No -Bioengineered Tissue No -Bleeding Controlled with Pressure -Treatment Response Procedure Tolerated Well -Offloading No -Debridement - Subq, 1st 20sq cm Yes Pain Scale: 0-10 Numeric Is Patient Pain Free? Yes WC - Nurse 3 - General Ulcer D/C NN Start: 01/25/23 09:37 Freq: Status: Active Protocol: Activity Type Activity Date Activity User E-sign Co-sign Detail Recorded Client Recorded Date Recorded By Document 01/25/23 10:56 DL [id number] 01/25/23 10:57 DL 01/25/23 10:56 Wound Care Center Nurse 3 2-left guido -Ulcer Cleansing Rinsed/ Irrigated with Saline -Foul Odor after Cleansing No -Primary Dressing Applied Aquacel Extra, Mepilex Border, NonAdherent Contact Layer -Aquacel Extra 1 -Mepilex Border 1 Right -Tubular Bandage Single Layer -Size of Tubigrip Used Size D -Size D ($) 1 Left -Tubular Bandage Single Layer -Size of Tubigrip Used Size D -Size D ($) 1 Pain Scale: 0-10 Numeric Is Patient Pain Free? Yes WC - Visit Discharge Discharge Condition Stable Ambulatory Status Ambulatory, Wheelchair Transportation Private Auto Medication Reconcilliation completed & Yes provided to patient/care provider Clinical Summary of Care Provided Yes Assessment/Plan Assessment/Plan (1) Wound of left lower extremity: CODE(S): S81.802A - Unspecified open wound, left lower leg, initial encounter QUALIFIERS: Encounter type: subsequent encounter Qualified Code(s): S81.802D - Unspecified open wound, left lower leg, subsequent encounter (2) Peripheral vascular disease: CODE(S): I73.9 - Peripheral vascular disease, unspecified (3) Atherosclerotic vascular disease: CODE(S): I70.90 - Unspecified atherosclerosis (4) Essential (primary) hypertension: CODE(S): I10 - Essential (primary) hypertension (5) Non-healing wound of left lower extremity: CODE(S): S81.802A - Unspecified open wound, left lower leg, initial encounter PLAN: Plan Debridement performed today in clinic as annotated above. At home wound-care instructions: Will have her dress her wound with Adaptic and Aquacel and cover with silicone foam bordered dressing. Will have her wear tubigrip compression to both legs. She will change dressings daily and wash with soap and water. Keep dressing clean and dry. Complete current antibiotic treatment. Off-loading: The patient was instructed to avoid pressure and friction on the affected areas. Reposition every 2 hours at minimum. Avoid prolonged standing and/or dangling of legs. When seated, feet should be elevated at chest level. Frequent ambulation is encouraged. Diet: Patient encouraged to increase protein intake while taking caution to avoid high carbohydrate and/or sugar intake. Labs/cultures/imaging: Consider arterial testing if not progressing, given her history of vascular disease and monophasic pulses in her ankles/feet. Follow-up: Return in 1 week for wound care follow up. Return sooner or report to the emergency room should symptoms worsen, or new symptoms arise. Note: [employer] speech recognition rotary shear cutter software was used to create portions of this document. Sound-alike and misspelled words, as well as other rotary shear cutter errors may be contained in the documentation.
[2023-02-01 12:13] VITALS: BP 135/75; PULSE 59; RESP 18; TEMP 36.4; BMI 26.2
--- NOTE | 2023-02-08 08:24 | PCM.WC.PN ---
History of Present Illness Date of Service: 02/01/23 Chief Complaint: nonhealing traumatic wound of left guido History of Wound: Ijeoma is an 82 yo female that presents for evaluation and treatment of a nonhealing traumatic wound of her left guido that occurred from a skin tear while she was playing with her dog. This occurred on January 04, 2023. She was seen in ER and treated for cellulitis and DVT. She has 3 days left of treatment of Augmentin. She is on Eliquis for treatment of the DVT. She has a h/o aortic aneurysm with repair and smoking history with mild COPD. She also has a h/o renal artery stenosis. She has been using Adaptic and nonadherent dressing and gauze to wound except when she was home and she left it open to air. She has pain and edema L leg. Does not wear compression typically. Has mild edema to right lower leg as well. She denies odor, erythema, fever, chills. Subjective Subjective Ijeoma returns today for follow up of a nonhealing wound of her left guido. She is tolerating treatment with Aquacel and adaptic and foam dressing. She denies any increased pain, odor, edema, erythema, fever or chills. Objective Data Objective Data Vital Signs: Vital Signs Temp Pulse Resp BP 97.5 F L 59 L 18 135/75 H 02/01/23 12:13 02/01/23 12:13 02/01/23 12:13 02/01/23 12:13 Weight: 69.4 kg Body Mass Index (BMI) 26.2 Physical Exam Const alert, oriented x3 and no apparent distress General Appearance: cooperative and comfortable HEENT normocephalic and head/scalp atraumatic Resp normal respiratory effort Effort and Inspection: able to speak in complete sentences Cardio regular rate and regular rhythm Skin Wounds: wounds noted Wound Narrative: as in clinical panel Psych mental status grossly normal, thought process normal, cooperative and affect normal Debridement Note Debridement Note Wound debrided: left guido Laterality: Left Type of Debridement: Excisional debridement Anesthesia Used: 4% Lidocaine Solution, 5% Lidocaine Gel and Cetacaine Depth: Down to and including healthy tissue and in the subcutaneous layer Percentage of wound debrided: 100 Instrument Used: 5mm curette, #15 blade and Forceps Tissue Removed: Yellow slough, devitalized tissue Severity: Fat Layer Exposed Amount of bleeding with debridement: Mild Bleeding Controlled with: Pressure and Compression and gauze Patient tolerated procedure: Patient tolerated procedure well Post-Debridement Measurements and Additional Note: Post-Debridement Measurements/Treatment WC - Nurse 1 - General Ulcer Assessment Start: 01/25/23 09:37 Freq: Status: Active Protocol: STANLEY Activity Type Activity Date Activity User E-sign Co-sign Detail Recorded Client Recorded Date Recorded By Document 01/25/23 09:41 JF [id number] 01/25/23 09:56 JF Document 02/01/23 12:13 RB [id number] 02/01/23 12:23 RB 01/25/23 02/01/23 09:41 12:13 WC - Today's Visit Information Type of service Initial Visit Follow-up Visit (Physician/CONTENT MANAGER ) Arrival Mode Ambulatory, Ambulatory Walker Transfer Assistance None Patient Identification Verified (Name & Yes Yes ) Patient Requires Transmission-Based No No Precautions Height and Weight Height 5 ft 4 in Weight 69.4 kg Weight in Pounds 153.0 lbs Body Mass Index (BMI) 26.2 26.2 BMI Classification Overweight Overweight BSA - Dashawn 1.75 Vital Signs Temperature (97.8 F-99.1 F) 97.3 F L 97.5 F L Temperature Source Temporal Temporal Pulse Rate (60-100) 64 59 L Pulse Location Monitor Monitor Respiratory Rate (12-18) 18 18 Respiratory rate source Observation Observation Blood Pressure (90/60-120/80) 133/72 H 135/75 H Blood Pressure Mean (mm Hg) 92 95 Source Monitor Monitor Position Semi-Fowlers Semi-Fowlers Blood Pressure Location Left Arm Left Arm History Since Last Visit- (Skip if this is Patient's initial visit) Have you changed medications since your No last visit? Any new allergies or adverse reactions No Had a fall/change in ADL's that may No increase risk of falls Signs or symptoms of abuse and/or No neglect since last visit Have you been in the hospital since your No last visit? Has dressing in place as prescribed Yes Has compression in place as prescribed Yes Has offloadiing in place as prescribed No Experienced any changes in pain level or No management Left Footwear Regular Shoe Right Footwear Regular Shoe Pain Scale: 0-10 Numeric Is Patient Pain Free? Yes Yes Lower Extremity Assessment/ Foot Assessment/ Toe Nail Assessment Right -Posterior Tibial Palpable Yes -Posterior Tibial Doppler Monophasic -Dorsalis Pedis Palpable Yes -Dorsalis Pedis Doppler Monophasic -Extremity Color Normal -Hair Growth on Legs No -Hair Growth on Toes No -Temperature of Extremity Warm -Capillary Refill Less than 3 Seconds -Dependent Rubor No -Blanched when Elevated Yes -Thick Yes -Discolored No -Deformed No -Improper Length & Hygeine No Left -Posterior Tibial Palpable No -Posterior Tibial Doppler Monophasic -Dorsalis Pedis Palpable No -Dorsalis Pedis Doppler Monophasic -Extremity Color Red -Hair Growth on Legs Yes -Hair Growth on Toes No -Temperature of Extremity Warm -Capillary Refill Less than 3 Seconds -Dependent Rubor Yes -Blanched when Elevated Yes -Thick Yes -Discolored No -Deformed No -Improper Length & Hygeine No Communication Assessment Preferred language [place] Maintenance Instructor Required No Able to Read Yes Able to Write Yes Right Hearing Abillity Normal Left Hearing Abillity Normal Visual Assistive Devices Glasses Teaching Assessment Preferences Verbal,Written, Audio/Visual, Demonstration Barriers to Learning None Readiness To Learn Good Willingness to Engage in Self Management Med Activies Readiness to Engage in Self Management Med Activities Anxiety Level Calm Cooperation Cooperative Perception Coherent Interest in Health Problem Asks Questions Education Importance Acknowledges Need Does Patient Smoke tobacco or other No substances Smoking Status Former smoker Is Patient Diabetic No Functional Assessment Recent Decline in Ability to Perform Denies Any Declines Assistive Device With Patient Yes List Device(s) with Patient walker Culture/Yazdanism/Financial Supervisor Financial Supervisor to contact place of scientologist No Teaching: Wound Center Signs & Symptoms of Infection -Person Taught Patient -Teaching Method Discussion, Demonstration -Response to teaching Return demonstration, Verbalize understanding [facility] Orientation/ Contacting Physician -Person Taught Patient -Teaching Method Discussion, Demonstration -Response to teaching Return demonstration, Verbalize understanding - Nurse 1 - General Ulcer Measurement Start: 01/25/23 09:37 Freq: Status: Active Protocol: Activity Type Activity Date Activity User E-sign Co-sign Detail Recorded Client Recorded Date Recorded By Document 01/25/23 09:41 KAREN [id number] 01/25/23 09:56 JF Document 02/01/23 12:13 RB [id number] 02/01/23 12:23 RB 01/25/23 02/01/23 09:41 12:13 Wound Center Nurse 1 2-left guido -Combined with other wound No No -Current Size (cm) - Length 3.6 3.9 -Current Size (cm) - Width 2.8 2.5 -Current Size (cm) - Depth 0.2 0.3 -Total Square Cm 10.08 9.75 -Photo Taken Yes Yes -Epithelialization None Present -Tunneling No No -Undermining/Tunneling No No -Circular Undermining No No -Classification - Thickness Unclassifiable (Eschar Covered ) -Exudate Amt Small Large -Exudate Type Serosanguineous Serosanguineous -Wound Margin Flat & Intact Thickened & Rolled Under -Granulation Amt Small (1-33%) Medium (34-66%) -Granulation Quality [place] -Slough/Fibrin Yes Yes -Necrosis Amt Large (67-100%) Medium (34-66%) -Necrotic Tissue Type Eschar Adherent Slough -Structure Exposed N/A N/A -Texture (Kaitlin-wound Skin Appearance) Assessed, Assessed, Localized Edema Scarring -Moisture (Kaitlin-wound Skin Appearance) Assessed,Dry/ Assessed Scaly -Color (Kaitlin-wound Skin Appearance) Assessed, Assessed, Erythema Hemosiderin Staining -Temperature (Kaitlin-wound Skin No Abnormality No Abnormality Appearance) (Pt Warm) (Pt Warm) -Tenderness on Palpation (Kaitlin-wound No No Skin Appearance) -Ulcer Cleansing Wound Cleanser Wound Cleanser -Foul Odor after Cleansing No No -Anesthetic Used 5% Lidocaine 5% Lidocaine Gel Gel Lower Limb Edema Present Yes Yes Right Calf (cm) 31.7 Right Ankle (cm) 23.3 Left Calf (cm) 34.7 33.5 Left Ankle (cm) 20.2 20 WC - Nurse 2 - General Ulcer CM Notes Start: 01/25/23 09:37 Freq: Status: Active Protocol: Activity Type Activity Date Activity User E-sign Co-sign Detail Recorded Client Recorded Date Recorded By Document 01/25/23 10:15 MW [id number] 01/25/23 10:46 MW Document 02/01/23 12:52 MW [id number] 02/01/23 13:11 MW 01/25/23 02/01/23 10:15 12:52 Wound Center Nurse 2 2-left guido -Time 10:17 12:55 -Correct Patient Yes Yes -Correct Side, Site, Position Yes Yes -Correct Procedure Yes Yes -Procedure Performed Yes Yes -Type of Procedure Debridement Debridement -Clinical Debridement Subcutaneous Subcutaneous -Tissue Removed Subcutaneous Subcutaneous -Post Debridement (cm) - Length 3.9 4.0 -Post Debridement (cm) - Width 2.5 2.5 -Post Debridement (cm) - Depth 0.2 0.2 -Total Square (Post) (cm) 9.75 10.00 -Area of Debridement (cm) - Length 3.9 4.0 -Area of Debridement (cm) - Width 2.5 2.5 -Total Square (Area) (cm) 9.75 10.00 -Tunneling No No -Undermining/Tunneling Yes No -Undermining/Tunneling Starts (O'clock 9 ) -Undermining/Tunneling Ends (O'clock) 10 -Maximum Distance (cm) 0.2 -Circular Undermining No No -Wound/Ulcer Outcome Not Healed Not Healed -Ulcer Cleansing Rinsed/ Rinsed/ Irrigated with Irrigated with Saline Saline -Foul Odor after Cleansing No No -Bioengineered Tissue No No -Bleeding Controlled with Pressure Pressure -Treatment Response Procedure Procedure Tolerated Well Tolerated Well -Offloading No No -Debridement - Subq, 1st 20sq cm Yes Yes Pain Scale: 0-10 Numeric Is Patient Pain Free? Yes Yes - Nurse 3 - General Ulcer D/C NN Start: 01/25/23 09:37 Freq: Status: Active Protocol: Activity Type Activity Date Activity User E-sign Co-sign Detail Recorded Client Recorded Date Recorded By Document 01/25/23 10:56 DL [id number] 01/25/23 10:57 DL Document 02/01/23 13:22 RB [id number] 02/01/23 13:26 RB 01/25/23 02/01/23 10:56 13:22 Wound Care Center Nurse 3 2-left guido -Ulcer Cleansing Rinsed/ Rinsed/ Irrigated with Irrigated with Saline Saline -Foul Odor after Cleansing No -Primary Dressing Applied Aquacel Extra, Mepilex Border, Mepilex Border, NonAdherent NonAdherent Contact Layer Contact Layer -Other Dressing aquacel extra -Aquacel Extra 1 -Mepilex Border 1 1 Right -Tubular Bandage Single Layer Single Layer -Size of Tubigrip Used Size D Size D -Size D ($) 1 1 Left -Tubular Bandage Single Layer Single Layer -Size of Tubigrip Used Size D Size D -Size D ($) 1 1 Treatment Response Procedure Tolerated Well Pain Scale: 0-10 Numeric Is Patient Pain Free? Yes Yes WC - Visit Discharge Discharge Condition Stable Stable Ambulatory Status Ambulatory, Ambulatory, Wheelchair Walker Transportation Private Auto Private Auto Medication Reconcilliation completed & Yes No provided to patient/care provider Clinical Summary of Care Provided Yes Yes Assessment/Plan Assessment/Plan (1) Wound of left lower extremity: CODE(S): S81.802A - Unspecified open wound, left lower leg, initial encounter QUALIFIERS: Encounter type: subsequent encounter Qualified Code(s): S81.802D - Unspecified open wound, left lower leg, subsequent encounter (2) Peripheral vascular disease: CODE(S): I73.9 - Peripheral vascular disease, unspecified (3) Atherosclerotic vascular disease: CODE(S): I70.90 - Unspecified atherosclerosis (4) Essential (primary) hypertension: CODE(S): I10 - Essential (primary) hypertension (5) Non-healing wound of left lower extremity: CODE(S): S81.802A - Unspecified open wound, left lower leg, initial encounter PLAN: Plan Debridement performed today in clinic as annotated above. At home wound-care instructions: Will have her dress her wound with Adaptic and Aquacel and cover with silicone foam bordered dressing. Will have her wear tubigrip compression to both legs. She will change dressings daily and wash with soap and water. Keep dressing clean and dry. Off-loading: The patient was instructed to avoid pressure and friction on the affected areas. Reposition every 2 hours at minimum. Avoid prolonged standing and/or dangling of legs. When seated, feet should be elevated at chest level. Frequent ambulation is encouraged. Diet: Patient encouraged to increase protein intake while taking caution to avoid high carbohydrate and/or sugar intake. Labs/cultures/imaging: Consider arterial testing if not progressing, given her history of vascular disease and monophasic pulses in her ankles/feet. Follow-up: Return in 1 week for wound care follow up. Return sooner or report to the emergency room should symptoms worsen, or new symptoms arise. Note: [employer] speech recognition sailmaker software was used to create portions of this document. Sound-alike and misspelled words, as well as other sailmaker errors may be contained in the documentation.
[2023-02-08 09:13] VITALS: BP 160/71; PULSE 65; RESP 18; TEMP 36.1; BMI 26.2
--- NOTE | 2023-02-08 12:49 | PCM.WC.PN ---
History of Present Illness Date of Service: 02/08/23 Chief Complaint: nonhealing traumatic wound of left guido History of Wound: Ijeoma is an 82 yo female that presents for evaluation and treatment of a nonhealing traumatic wound of her left guido that occurred from a skin tear while she was playing with her dog. This occurred on January 04, 2023. She was seen in ER and treated for cellulitis and DVT. She has 3 days left of treatment of Augmentin. She is on Eliquis for treatment of the DVT. She has a h/o aortic aneurysm with repair and smoking history with mild COPD. She also has a h/o renal artery stenosis. She has been using Adaptic and nonadherent dressing and gauze to wound except when she was home and she left it open to air. She has pain and edema L leg. Does not wear compression typically. Has mild edema to right lower leg as well. She denies odor, erythema, fever, chills. Subjective Subjective Ijeoma returns today for follow up of a nonhealing wound of her left guido. She is tolerating treatment with Aquacel and adaptic and foam dressing. She denies any increased pain, odor, edema, erythema, fever or chills. Objective Data Objective Data Vital Signs: Vital Signs Temp Pulse Resp BP 97 F L 65 18 160/71 H 02/08/23 09:13 02/08/23 09:13 02/08/23 09:13 02/08/23 09:13 Weight: 69.4 kg Body Mass Index (BMI) 26.2 Physical Exam Const alert, oriented x3 and no apparent distress General Appearance: cooperative and comfortable HEENT normocephalic and head/scalp atraumatic Resp normal respiratory effort Effort and Inspection: able to speak in complete sentences Cardio regular rate and regular rhythm Skin Wounds: wounds noted Wound Narrative: as in clinical panel Psych mental status grossly normal, thought process normal, cooperative and affect normal Debridement Note Debridement Note Wound debrided: left guido Laterality: Left Type of Debridement: Excisional debridement Anesthesia Used: 4% Lidocaine Solution, 5% Lidocaine Gel and Cetacaine Depth: Down to and including healthy tissue and in the subcutaneous layer Percentage of wound debrided: 100 Instrument Used: 5mm curette Tissue Removed: Yellow slough, devitalized tissue Severity: Fat Layer Exposed Amount of bleeding with debridement: Mild Bleeding Controlled with: Pressure and Compression and gauze Patient tolerated procedure: Patient tolerated procedure well Post-Debridement Measurements and Additional Note: Post-Debridement Measurements/Treatment WC - Nurse 1 - General Ulcer Assessment Start: 01/25/23 09:37 Freq: Status: Active Protocol: STANLEY Activity Type Activity Date Activity User E-sign Co-sign Detail Recorded Client Recorded Date Recorded By Document 01/25/23 09:41 [id number] 01/25/23 09:56 JF Document 02/01/23 12:13 RB [id number] 02/01/23 12:23 RB Document 02/08/23 09:13 RB [id number] 02/08/23 09:16 RB 01/25/23 02/01/23 02/08/23 09:41 12:13 09:13 WC - Today's Visit Information Type of service Initial Visit Follow-up Visit Follow-up Visit (Physician/PHOTOLETTERING MACHINE OPERATOR (Physician/PHOTOLETTERING MACHINE OPERATOR ) ) Arrival Mode Ambulatory, Ambulatory Ambulatory Walker Transfer Assistance None None Patient Identification Verified (Name & Yes Yes Yes ) Patient Requires Transmission-Based No No No Precautions Height and Weight Height 5 ft 4 in Weight 69.4 kg Weight in Pounds 153.0 lbs Body Mass Index (BMI) 26.2 26.2 26.2 BMI Classification Overweight Overweight Overweight BSA - Dashawn 1.75 Vital Signs Temperature (97.8 F-99.1 F) 97.3 F L 97.5 F L 97 F L Temperature Source Temporal Temporal Temporal Pulse Rate (60-100) 64 59 L 65 Pulse Location Monitor Monitor Monitor Respiratory Rate (12-18) 18 18 18 Respiratory rate source Observation Observation Observation Blood Pressure (90/60-120/80) 133/72 H 135/75 H 160/71 H Blood Pressure Mean (mm Hg) 92 95 100 Source Monitor Monitor Monitor Position Semi-Fowlers Semi-Fowlers Semi-Fowlers Blood Pressure Location Left Arm Left Arm Left Arm History Since Last Visit- (Skip if this is Patient's initial visit) Have you changed medications since your No No last visit? Any new allergies or adverse reactions No No Had a fall/change in ADL's that may No No increase risk of falls Signs or symptoms of abuse and/or No No neglect since last visit Have you been in the hospital since your No No last visit? Has dressing in place as prescribed Yes Yes Has compression in place as prescribed Yes No Has offloadiing in place as prescribed No No Experienced any changes in pain level or No No management Left Footwear Regular Shoe Right Footwear Regular Shoe Pain Scale: 0-10 Numeric Is Patient Pain Free? Yes Yes Yes Lower Extremity Assessment/ Foot Assessment/ Toe Nail Assessment Right -Posterior Tibial Palpable Yes -Posterior Tibial Doppler Monophasic -Dorsalis Pedis Palpable Yes -Dorsalis Pedis Doppler Monophasic -Extremity Color Normal -Hair Growth on Legs No -Hair Growth on Toes No -Temperature of Extremity Warm -Capillary Refill Less than 3 Seconds -Dependent Rubor No -Blanched when Elevated Yes -Thick Yes -Discolored No -Deformed No -Improper Length & Hygeine No Left -Posterior Tibial Palpable No -Posterior Tibial Doppler Monophasic -Dorsalis Pedis Palpable No -Dorsalis Pedis Doppler Monophasic -Extremity Color Red -Hair Growth on Legs Yes -Hair Growth on Toes No -Temperature of Extremity Warm -Capillary Refill Less than 3 Seconds -Dependent Rubor Yes -Blanched when Elevated Yes -Thick Yes -Discolored No -Deformed No -Improper Length & Hygeine No Communication Assessment Preferred language Singaporean Director Of Event Management Required No Able to Read Yes Able to Write Yes Right Hearing Abillity Normal Left Hearing Abillity Normal Visual Assistive Devices Glasses Teaching Assessment Preferences Verbal,Written, Audio/Visual, Demonstration Barriers to Learning None Readiness To Learn Good Willingness to Engage in Self Management Med Activies Readiness to Engage in Self Management Med Activities Anxiety Level Calm Cooperation Cooperative Perception Coherent Interest in Health Problem Asks Questions Education Importance Acknowledges Need Does Patient Smoke tobacco or other No substances Smoking Status Former smoker Is Patient Diabetic No Functional Assessment Recent Decline in Ability to Perform Denies Any Declines Assistive Device With Patient Yes List Device(s) with Patient walker Culture/Yazidi/Dope House Operator Helper Dope House Operator Helper to contact place of scientology No Teaching: Wound Center Signs & Symptoms of Infection -Person Taught Patient -Teaching Method Discussion, Demonstration -Response to teaching Return demonstration, Verbalize understanding [facility] Orientation/ Contacting Physician -Person Taught Patient -Teaching Method Discussion, Demonstration -Response to teaching Return demonstration, Verbalize understanding - Nurse 1 - General Ulcer Measurement Start: 01/25/23 09:37 Freq: Status: Active Protocol: Activity Type Activity Date Activity User E-sign Co-sign Detail Recorded Client Recorded Date Recorded By Document 01/25/23 09:41 [id number] 01/25/23 09:56 Document 02/01/23 12:13 RB [id number] 02/01/23 12:23 RB Document 02/08/23 09:13 RB [id number] 02/08/23 09:16 RB 01/25/23 02/01/23 02/08/23 09:41 12:13 09:13 Wound Center Nurse 1 2-left guido -Combined with other wound No No No -Current Size (cm) - Length 3.6 3.9 3.5 -Current Size (cm) - Width 2.8 2.5 2.3 -Current Size (cm) - Depth 0.2 0.3 0.2 -Total Square Cm 10.08 9.75 8.05 -Photo Taken Yes Yes -Epithelialization None Present -Tunneling No No No -Undermining/Tunneling No No No -Circular Undermining No No No -Classification - Thickness Unclassifiable (Eschar Covered ) -Exudate Amt Small Large Medium -Exudate Type Serosanguineous Serosanguineous Serosanguineous -Wound Margin Flat & Intact Thickened & Distinct, Rolled Under Outline Attached -Granulation Amt Small (1-33%) Medium (34-66%) Medium (34-66%) -Granulation Quality [place] -Slough/Fibrin Yes Yes Yes -Necrosis Amt Large (67-100%) Medium (34-66%) Medium (34-66%) -Necrotic Tissue Type Eschar Adherent Slough Adherent Slough -Structure Exposed N/A N/A N/A -Texture (Kaitlin-wound Skin Appearance) Assessed, Assessed, Assessed, Localized Edema Scarring Friable -Moisture (Kaitlin-wound Skin Appearance) Assessed,Dry/ Assessed Assessed Scaly -Color (Kaitlin-wound Skin Appearance) Assessed, Assessed, Assessed Erythema Hemosiderin Staining -Temperature (Kaitlin-wound Skin No Abnormality No Abnormality No Abnormality Appearance) (Pt Warm) (Pt Warm) (Pt Warm) -Tenderness on Palpation (Kaitlin-wound No No No Skin Appearance) -Ulcer Cleansing Wound Cleanser Wound Cleanser Wound Cleanser -Foul Odor after Cleansing No No No -Anesthetic Used 5% Lidocaine 5% Lidocaine 5% Lidocaine Gel Gel Gel Lower Limb Edema Present Yes Yes Right Calf (cm) 31.7 Right Ankle (cm) 23.3 Left Calf (cm) 34.7 33.5 Left Ankle (cm) 20.2 20 WC - Nurse 2 - General Ulcer CM Notes Start: 01/25/23 09:37 Freq: Status: Active Protocol: Activity Type Activity Date Activity User E-sign Co-sign Detail Recorded Client Recorded Date Recorded By Document 01/25/23 10:15 MW [id number] 01/25/23 10:46 MW Document 02/01/23 12:52 MW [id number] 02/01/23 13:11 MW Document 02/08/23 09:45 MW [id number] 02/08/23 09:56 MW 01/25/23 02/01/23 02/08/23 10:15 12:52 09:45 Wound Center Nurse 2 2-left guido -Time 10:17 12:55 09:46 -Correct Patient Yes Yes Yes -Correct Side, Site, Position Yes Yes Yes -Correct Procedure Yes Yes Yes -Procedure Performed Yes Yes Yes -Type of Procedure Debridement Debridement Debridement -Clinical Debridement Subcutaneous Subcutaneous Subcutaneous -Tissue Removed Subcutaneous Subcutaneous Subcutaneous -Post Debridement (cm) - Length 3.9 4.0 3.7 -Post Debridement (cm) - Width 2.5 2.5 2.4 -Post Debridement (cm) - Depth 0.2 0.2 0.2 -Total Square (Post) (cm) 9.75 10.00 8.88 -Area of Debridement (cm) - Length 3.9 4.0 3.7 -Area of Debridement (cm) - Width 2.5 2.5 2.4 -Total Square (Area) (cm) 9.75 10.00 8.88 -Tunneling No No No -Undermining/Tunneling Yes No No -Undermining/Tunneling Starts (O'clock 9 ) -Undermining/Tunneling Ends (O'clock) 10 -Maximum Distance (cm) 0.2 -Circular Undermining No No No -Wound/Ulcer Outcome Not Healed Not Healed Not Healed -Ulcer Cleansing Rinsed/ Rinsed/ Rinsed/ Irrigated with Irrigated with Irrigated with Saline Saline Saline -Foul Odor after Cleansing No No No -Bioengineered Tissue No No No -Bleeding Controlled with Pressure Pressure Silver Nitrate -Treatment Response Procedure Procedure Procedure Not Tolerated Well Tolerated Well Tolerated Well -Offloading No No No -Debridement - Subq, 1st 20sq cm Yes Yes Yes Pain Scale: 0-10 Numeric Is Patient Pain Free? Yes Yes Yes WC - Nurse 3 - General Ulcer D/C NN Start: 01/25/23 09:37 Freq: Status: Active Protocol: Activity Type Activity Date Activity User E-sign Co-sign Detail Recorded Client Recorded Date Recorded By Document 01/25/23 10:56 DL [id number] 01/25/23 10:57 DL Document 02/01/23 13:22 RB [id number] 02/01/23 13:26 RB Document 02/08/23 09:56 MW [id number] 02/08/23 10:02 MW 01/25/23 02/01/23 02/08/23 10:56 13:22 09:56 Wound Care Center Nurse 3 2-left guido -Ulcer Cleansing Rinsed/ Rinsed/ Rinsed/ Irrigated with Irrigated with Irrigated with Saline Saline Saline -Foul Odor after Cleansing No No -Negative Pressure Wound Therapy N/A -Primary Dressing Applied Aquacel Extra, Mepilex Border, Aquacel Extra, Mepilex Border, NonAdherent Mepilex Border, NonAdherent Contact Layer NonAdherent Contact Layer Contact Layer -Other Dressing aquacel extra -Aquacel Extra 1 1 -Mepilex Border 1 1 1 Right -Tubular Bandage Single Layer Single Layer -Size of Tubigrip Used Size D Size D -Size D ($) 1 1 Left -Lotion applied to leg before No compression wrap -Tubular Bandage Single Layer Single Layer -Size of Tubigrip Used Size D Size D -Size D ($) 1 1 -Other single layer tubigrip Treatment Response Procedure Procedure Tolerated Well Tolerated Well Pain Scale: 0-10 Numeric Is Patient Pain Free? Yes Yes Yes Teaching: Wound Center Dressing Your Wound -Person Taught Patient -Teaching Method Demonstration -Response to teaching Verbalize understanding WC - Visit Discharge Discharge Condition Stable Stable Stable Ambulatory Status Ambulatory, Ambulatory, Ambulatory, Wheelchair Walker Walker Transportation Private Auto Private Auto Private Auto Accompanied by self Medication Reconcilliation completed & Yes No No provided to patient/care provider Clinical Summary of Care Provided Yes Yes Yes Assessment/Plan Assessment/Plan (1) Wound of left lower extremity: CODE(S): S81.802A - Unspecified open wound, left lower leg, initial encounter QUALIFIERS: Encounter type: subsequent encounter Qualified Code(s): S81.802D - Unspecified open wound, left lower leg, subsequent encounter (2) Peripheral vascular disease: CODE(S): I73.9 - Peripheral vascular disease, unspecified (3) Atherosclerotic vascular disease: CODE(S): I70.90 - Unspecified atherosclerosis (4) Essential (primary) hypertension: CODE(S): I10 - Essential (primary) hypertension (5) Non-healing wound of left lower extremity: CODE(S): S81.802A - Unspecified open wound, left lower leg, initial encounter PLAN: Plan Debridement performed today in clinic as annotated above. At home wound-care instructions: Her wound is improving. Will have her dress her wound with Adaptic and Aquacel and cover with silicone foam bordered dressing. Will have her wear tubigrip compression to both legs. She will change dressings daily and wash with soap and water. Keep dressing clean and dry. Off-loading: The patient was instructed to avoid pressure and friction on the affected areas. Reposition every 2 hours at minimum. Avoid prolonged standing and/or dangling of legs. When seated, feet should be elevated at chest level. Frequent ambulation is encouraged. Diet: Patient encouraged to increase protein intake while taking caution to avoid high carbohydrate and/or sugar intake. Labs/cultures/imaging: Consider arterial testing if not progressing, given her history of vascular disease and monophasic pulses in her ankles/feet. Follow-up: Return in 1-2 weeks for wound care follow up. Return sooner or report to the emergency room should symptoms worsen, or new symptoms arise. Note: [employer] speech recognition electroslag welding machine operator software was used to create portions of this document. Sound-alike and misspelled words, as well as other electroslag welding machine operator errors may be contained in the documentation.
== END 2023-02-11 23:59 | disposition home or self-care (01) ==
LOC: WC 09:00
PROVIDERS: PCP Internal Medicine; Referring Provider Internal Medicine; Visit Provider Family Medicine
DX: I73.9 Peripheral vascular disease, unspecified (principal); J44.9 Chronic obstructive pulmonary disease, unspecified; S81.812A Laceration without foreign body, left lower leg, initial encounter; R60.0 Localized edema; Z79.83 Long term (current) use of bisphosphonates; Z79.82 Long term (current) use of aspirin; I10 Essential (primary) hypertension; Z87.891 Personal history of nicotine dependence; X58.XXXA Exposure to other specified factors, initial encounter; Z79.899 Other long term (current) drug therapy; Z79.01 Long term (current) use of anticoagulants; Z86.718 Personal history of other venous thrombosis and embolism
CPT/HCPCS: 11042; 99203; G0463

== ENCOUNTER 2023-03-08 10:15 | Outpatient (RCR) | payer MEDICARE, SELFPAY ==
[2023-02-12 00:41] VITALS: BP 160/71; PULSE 65; RESP 18; TEMP 36.1; BMI 26.2
[2023-02-15 11:11] VITALS: BP 130/67; PULSE 63; RESP 16; TEMP 36.3; BMI 26.2
--- NOTE | 2023-02-15 13:41 | PN.PCM_ITS ---
History of Present Illness Date of Service: 02/15/23 Chief Complaint: nonhealing traumatic wound of left guido History of Wound: Ijeoma is an 82 yo female that presents for evaluation and treatment of a nonhealing traumatic wound of her left guido that occurred from a skin tear while she was playing with her dog. This occurred on January 04, 2023. She was seen in ER and treated for cellulitis and DVT. She has 3 days left of treatment of Augmentin. She is on Eliquis for treatment of the DVT. She has a h/o aortic aneurysm with repair and smoking history with mild COPD. She also has a h/o renal artery stenosis. She has been using Adaptic and nonadherent dressing and gauze to wound except when she was home and she left it open to air. She has pain and edema L leg. Does not wear compression typically. Has mild edema to right lower leg as well. She denies odor, erythema, fever, chills. Subjective Subjective Ijeoma returns today for follow up of a nonhealing wound of her left guido. She is tolerating treatment with Aquacel and adaptic and foam dressing. She denies any increased pain, odor, edema, erythema, fever or chills. Objective Data Objective Data Vital Signs: Vital Signs Temp Pulse Resp BP 97.4 F L 63 16 130/67 H 02/15/23 11:11 02/15/23 11:11 02/15/23 11:11 02/15/23 11:11 Weight: 69.4 kg Body Mass Index (BMI) 26.2 Physical Exam Const alert, oriented x3 and no apparent distress General Appearance: cooperative and comfortable HEENT normocephalic and head/scalp atraumatic Resp normal respiratory effort Effort and Inspection: able to speak in complete sentences Cardio regular rate and regular rhythm Skin Wounds: wounds noted Wound Narrative: as in clinical panel Psych mental status grossly normal, thought process normal, cooperative and affect normal Debridement Note Debridement Note Wound debrided: left guido Laterality: Left Type of Debridement: Excisional debridement Anesthesia Used: 4% Lidocaine Solution, 5% Lidocaine Gel and Cetacaine Depth: Down to and including healthy tissue and in the subcutaneous layer Percentage of wound debrided: 100 Instrument Used: 5mm curette Tissue Removed: Yellow slough, devitalized tissue Severity: Fat Layer Exposed Amount of bleeding with debridement: Mild Bleeding Controlled with: Pressure and Compression and gauze Patient tolerated procedure: Patient tolerated procedure well Post-Debridement Measurements and Additional Note: Post-Debridement Measurements/Treatment - Nurse 1 - General Ulcer Assessment Start: 02/15/23 11:11 Freq: Status: Active Protocol: STANLEY Activity Type Activity Date Activity User E-sign Co-sign Detail Recorded Client Recorded Date Recorded By Document 02/15/23 11:11 KAREN [id number] 02/15/23 11:13 KAREN 02/15/23 11:11 WC - Today's Visit Information Type of service Follow-up Visit (Physician/DISHWASHING MACHINE OPERATOR ) Arrival Mode Ambulatory, Walker Patient Identification Verified (Name & Yes ) Patient Requires Transmission-Based No Precautions Safety Precautions NA Height and Weight Body Mass Index (BMI) 26.2 BMI Classification Overweight Vital Signs Temperature (97.8 F-99.1 F) 97.4 F L Temperature Source Temporal Pulse Rate (60-100) 63 Pulse Location Monitor Respiratory Rate (12-18) 16 Respiratory rate source Observation Blood Pressure (90/60-120/80) 130/67 H Blood Pressure Mean (mm Hg) 88 Source Monitor Position Semi-Fowlers Blood Pressure Location Left Arm History Since Last Visit- (Skip if this is Patient's initial visit) Have you changed medications since your No last visit? Any new allergies or adverse reactions No Had a fall/change in ADL's that may No increase risk of falls Signs or symptoms of abuse and/or No neglect since last visit Have you been in the hospital since your No last visit? Has dressing in place as prescribed Yes Has compression in place as prescribed Yes Has offloadiing in place as prescribed N/A Experienced any changes in pain level or No management Left Footwear Regular Shoe Right Footwear Regular Shoe Pain Scale: 0-10 Numeric Is Patient Pain Free? Yes - Nurse 1 - General Ulcer Measurement Start: 02/15/23 11:11 Freq: Status: Active Protocol: Activity Type Activity Date Activity User E-sign Co-sign Detail Recorded Client Recorded Date Recorded By Document 02/15/23 11:11 KAREN [id number] 02/15/23 11:13 KAREN 02/15/23 11:11 Wound Center Nurse 1 2-left guido -Combined with other wound No -Current Size (cm) - Length 3.6 -Current Size (cm) - Width 2.0 -Current Size (cm) - Depth 0.2 -Total Square Cm 7.20 -Photo Taken Yes -Epithelialization Small 1-33% -Tunneling No -Undermining/Tunneling No -Circular Undermining No -Exudate Amt Medium -Exudate Type Serosanguineous -Wound Margin Flat & Intact -Granulation Amt None Present (0 %) -Slough/Fibrin Yes -Necrosis Amt Large (67-100%) -Necrotic Tissue Type Adherent Slough -Texture (Kaitlin-wound Skin Appearance) Not Assessed -Moisture (Kaitlin-wound Skin Appearance) Assessed,Dry/ Scaly -Color (Kaitlin-wound Skin Appearance) Assessed, Hemosiderin Staining -Temperature (Kaitlin-wound Skin No Abnormality Appearance) (Pt Warm) -Tenderness on Palpation (Kaitlin-wound No Skin Appearance) -Ulcer Cleansing Wound Cleanser -Foul Odor after Cleansing No -Anesthetic Used 5% Lidocaine Gel Lower Limb Edema Present Yes Left Calf (cm) 30.6 Left Ankle (cm) 19.5 WC - Nurse 2 - General Ulcer CM Notes Start: 02/15/23 11:11 Freq: Status: Active Protocol: Activity Type Activity Date Activity User E-sign Co-sign Detail Recorded Client Recorded Date Recorded By Document 02/15/23 12:03 MW [id number] 02/15/23 12:17 MW 02/15/23 12:03 Wound Center Nurse 2 2-left guido -Time 12:04 -Correct Patient Yes -Correct Side, Site, Position Yes -Correct Procedure Yes -Procedure Performed Yes -Type of Procedure Debridement -Clinical Debridement Subcutaneous -Tissue Removed Subcutaneous -Post Debridement (cm) - Length 3.5 -Post Debridement (cm) - Width 2.1 -Post Debridement (cm) - Depth 0.2 -Total Square (Post) (cm) 7.35 -Area of Debridement (cm) - Length 3.5 -Area of Debridement (cm) - Width 2.1 -Total Square (Area) (cm) 7.35 -Tunneling No -Undermining/Tunneling No -Circular Undermining No -Wound/Ulcer Outcome Not Healed -Ulcer Cleansing Rinsed/ Irrigated with Saline -Foul Odor after Cleansing No -Bioengineered Tissue No -Bleeding Controlled with Pressure -Treatment Response Procedure Tolerated Well -Offloading No -Debridement - Subq, 1st 20sq cm Yes Pain Scale: 0-10 Numeric Is Patient Pain Free? Yes - Nurse 3 - General Ulcer D/C NN Start: 02/15/23 11:11 Freq: Status: Active Protocol: Activity Type Activity Date Activity User E-sign Co-sign Detail Recorded Client Recorded Date Recorded By Document 02/15/23 12:31 RB [id number] 02/15/23 12:33 RB 02/15/23 12:31 Wound Care Center Nurse 3 2-left guido -Ulcer Cleansing Rinsed/ Irrigated with Saline -Primary Dressing Applied Mepilex Border, NonAdherent Contact Layer, Promogran -Mepilex Border 1 -Promogran 2 Left -Other single layer D Treatment Response Procedure Tolerated Well Pain Scale: 0-10 Numeric Is Patient Pain Free? Yes WC - Visit Discharge Discharge Condition Stable Ambulatory Status Ambulatory, Walker Transportation Private Auto Medication Reconcilliation completed & No provided to patient/care provider Clinical Summary of Care Provided Yes Assessment/Plan Assessment/Plan (1) Wound of left lower extremity: CODE(S): S81.802A - Unspecified open wound, left lower leg, initial encounter QUALIFIERS: Encounter type: subsequent encounter Qualified Code(s): S81.802D - Unspecified open wound, left lower leg, subsequent encounter (2) Peripheral vascular disease: CODE(S): I73.9 - Peripheral vascular disease, unspecified (3) Atherosclerotic vascular disease: CODE(S): I70.90 - Unspecified atherosclerosis (4) Essential (primary) hypertension: CODE(S): I10 - Essential (primary) hypertension (5) Non-healing wound of left lower extremity: CODE(S): S81.802A - Unspecified open wound, left lower leg, initial encounter PLAN: Plan Debridement performed today in clinic as annotated above. At home wound-care instructions: Her wound is improving. Will have her dress her wound with Adaptic and Promogran and cover with silicone foam bordered dressing. Will have her wear tubigrip compression to both legs. She will change dressings daily and wash with soap and water. Keep dressing clean and dry. Off-loading: The patient was instructed to avoid pressure and friction on the affected areas. Reposition every 2 hours at minimum. Avoid prolonged standing and/or dangling of legs. When seated, feet should be elevated at chest level. Frequent ambulation is encouraged. Diet: Patient encouraged to increase protein intake while taking caution to avoid high carbohydrate and/or sugar intake. Labs/cultures/imaging: Consider arterial testing if not progressing, given her history of vascular disease and monophasic pulses in her ankles/feet. Follow-up: Return in 2 weeks for wound care follow up. Return sooner or report to the emergency room should symptoms worsen, or new symptoms arise. Note: [employer] speech recognition gear generator set up operator software was used to create portions of this document. Sound-alike and misspelled words, as well as other gear generator set up operator errors may be contained in the documentation.
[2023-03-01 10:40] VITALS: BP 108/53; PULSE 55; RESP 20; TEMP 36.4; BMI 26.2
--- NOTE | 2023-03-01 14:19 | PCM.WC.PN ---
History of Present Illness Date of Service: 03/01/23 Chief Complaint: nonhealing traumatic wound of left guido History of Wound: Ijeoma is an 82 yo female that presents for evaluation and treatment of a nonhealing traumatic wound of her left guido that occurred from a skin tear while she was playing with her dog. This occurred on January 04, 2023. She was seen in ER and treated for cellulitis and DVT. She has 3 days left of treatment of Augmentin. She is on Eliquis for treatment of the DVT. She has a h/o aortic aneurysm with repair and smoking history with mild COPD. She also has a h/o renal artery stenosis. She has been using Adaptic and nonadherent dressing and gauze to wound except when she was home and she left it open to air. She has pain and edema L leg. Does not wear compression typically. Has mild edema to right lower leg as well. She denies odor, erythema, fever, chills. Subjective Subjective Ijeoma returns today for follow up of a nonhealing wound of her left guido. She is tolerating treatment with Promogran and adaptic and foam dressing. She denies any increased pain, odor, edema, erythema, fever or chills. Objective Data Objective Data Vital Signs: Vital Signs Temp Pulse Resp BP 97.5 F L 55 L 20 H 108/53 L 03/01/23 10:40 03/01/23 10:40 03/01/23 10:40 03/01/23 10:40 Weight: 69.4 kg Body Mass Index (BMI) 26.2 Physical Exam Const alert, oriented x3 and no apparent distress General Appearance: cooperative and comfortable HEENT normocephalic and head/scalp atraumatic Resp normal respiratory effort Effort and Inspection: able to speak in complete sentences Cardio regular rate and regular rhythm Skin Wounds: wounds noted Wound Narrative: as in clinical panel Psych mental status grossly normal, thought process normal, cooperative and affect normal Debridement Note Debridement Note Wound debrided: left guido Laterality: Left Type of Debridement: Excisional debridement Anesthesia Used: 4% Lidocaine Solution, 5% Lidocaine Gel and Cetacaine Depth: Down to and including healthy tissue and in the subcutaneous layer Percentage of wound debrided: 100 Instrument Used: 5mm curette Tissue Removed: Yellow slough, devitalized tissue Severity: Fat Layer Exposed Amount of bleeding with debridement: Mild Bleeding Controlled with: Pressure and Compression and gauze Patient tolerated procedure: Patient tolerated procedure well Post-Debridement Measurements and Additional Note: Post-Debridement Measurements/Treatment PHONG - Nurse 1 - General Ulcer Assessment Start: 02/15/23 11:11 Freq: Status: Active Protocol: STANLEY Activity Type Activity Date Activity User E-sign Co-sign Detail Recorded Client Recorded Date Recorded By Document 02/15/23 11:11 JF [id number] 02/15/23 11:13 JF Document 03/01/23 10:40 DL [id number] 03/01/23 10:48 DL 02/15/23 03/01/23 11:11 10:40 WC - Today's Visit Information Type of service Follow-up Visit Follow-up Visit (Physician/DESIGN SUPERVISOR (Physician/DESIGN SUPERVISOR ) ) Arrival Mode Ambulatory, Ambulatory, Walker Walker Transfer Assistance None Patient Identification Verified (Name & Yes Yes ) Patient Requires Transmission-Based No No Precautions Safety Precautions NA Height and Weight Body Mass Index (BMI) 26.2 26.2 BMI Classification Overweight Overweight Vital Signs Temperature (97.8 F-99.1 F) 97.4 F L 97.5 F L Temperature Source Temporal Temporal Pulse Rate (60-100) 63 55 L Pulse Location Monitor Monitor Respiratory Rate (12-18) 16 20 H Respiratory rate source Observation Observation Blood Pressure (90/60-120/80) 130/67 H 108/53 L Blood Pressure Mean (mm Hg) 88 71 Source Monitor Monitor Position Semi-Fowlers Blood Pressure Location Left Arm History Since Last Visit- (Skip if this is Patient's initial visit) Have you changed medications since your No No last visit? Any new allergies or adverse reactions No No Had a fall/change in ADL's that may No No increase risk of falls Signs or symptoms of abuse and/or No No neglect since last visit Have you been in the hospital since your No No last visit? Has dressing in place as prescribed Yes Yes Has compression in place as prescribed Yes Yes Has offloadiing in place as prescribed N/A N/A Experienced any changes in pain level or No No management Left Footwear Regular Shoe Right Footwear Regular Shoe Pain Scale: 0-10 Numeric Is Patient Pain Free? Yes Yes PHONG Campos Nurse 1 - General Ulcer Measurement Start: 02/15/23 11:11 Freq: Status: Active Protocol: Activity Type Activity Date Activity User E-sign Co-sign Detail Recorded Client Recorded Date Recorded By Document 02/15/23 11:11 [id number] 02/15/23 11:13 JF Document 03/01/23 10:40 DL [id number] 03/01/23 10:48 DL 02/15/23 03/01/23 11:11 10:40 Wound Center Nurse 1 2-left guido -Combined with other wound No -Current Size (cm) - Length 3.6 2.8 -Current Size (cm) - Width 2.0 1.9 -Current Size (cm) - Depth 0.2 0.1 -Total Square Cm 7.20 5.32 -Photo Taken Yes -Epithelialization Small 1-33% -Tunneling No -Undermining/Tunneling No -Circular Undermining No -Exudate Amt Medium Medium -Exudate Type Serosanguineous Serosanguineous -Wound Margin Flat & Intact Distinct, Outline Attached -Granulation Amt None Present (0 Medium (34-66%) %) -Granulation Quality Red -Slough/Fibrin Yes -Necrosis Amt Large (67-100%) Medium (34-66%) -Necrotic Tissue Type Adherent Slough Adherent Slough -Structure Exposed N/A -Texture (Kaitlin-wound Skin Appearance) Not Assessed Scarring -Moisture (Kaitlin-wound Skin Appearance) Assessed,Dry/ No Abnormality Scaly -Color (Kaitlin-wound Skin Appearance) Assessed, Hemosiderin Hemosiderin Staining Staining -Temperature (Kaitlin-wound Skin No Abnormality No Abnormality Appearance) (Pt Warm) (Pt Warm) -Tenderness on Palpation (Kaitlin-wound No No Skin Appearance) -Ulcer Cleansing Wound Cleanser Soap and Water -Foul Odor after Cleansing No No -Anesthetic Used 5% Lidocaine 5% Lidocaine Gel Gel Lower Limb Edema Present Yes Left Calf (cm) 30.6 29 Left Ankle (cm) 19.5 18.8 WC - Nurse 2 - General Ulcer CM Notes Start: 02/15/23 11:11 Freq: Status: Active Protocol: Activity Type Activity Date Activity User E-sign Co-sign Detail Recorded Client Recorded Date Recorded By Document 02/15/23 12:03 MW [id number] 02/15/23 12:17 MW Document 03/01/23 11:04 MW Desktop 08/18/23 11:15 MW 02/15/23 03/01/23 12:03 11:04 Wound Center Nurse 2 2-left guido -Time 12:04 11:05 -Correct Patient Yes Yes -Correct Side, Site, Position Yes Yes -Correct Procedure Yes Yes -Procedure Performed Yes Yes -Type of Procedure Debridement Debridement -Clinical Debridement Subcutaneous Subcutaneous -Tissue Removed Subcutaneous Subcutaneous -Post Debridement (cm) - Length 3.5 2.5 -Post Debridement (cm) - Width 2.1 1.6 -Post Debridement (cm) - Depth 0.2 0.2 -Total Square (Post) (cm) 7.35 4.00 -Area of Debridement (cm) - Length 3.5 2.5 -Area of Debridement (cm) - Width 2.1 1.6 -Total Square (Area) (cm) 7.35 4.00 -Tunneling No No -Undermining/Tunneling No No -Circular Undermining No No -Wound/Ulcer Outcome Not Healed Not Healed -Ulcer Cleansing Rinsed/ Rinsed/ Irrigated with Irrigated with Saline Saline -Foul Odor after Cleansing No No -Bioengineered Tissue No No -Bleeding Controlled with Pressure Pressure -Treatment Response Procedure Procedure Tolerated Well Tolerated Well -Offloading No No -Debridement - Subq, 1st 20sq cm Yes Yes Pain Scale: 0-10 Numeric Is Patient Pain Free? Yes Yes WC - Nurse 3 - General Ulcer D/C NN Start: 02/15/23 11:11 Freq: Status: Active Protocol: Activity Type Activity Date Activity User E-sign Co-sign Detail Recorded Client Recorded Date Recorded By Document 02/15/23 12:31 RB [id number] 02/15/23 12:33 RB Document 03/01/23 11:28 RB [id number] 03/01/23 11:30 RB 02/15/23 03/01/23 12:31 11:28 Wound Care Center Nurse 3 2-left guido -Ulcer Cleansing Rinsed/ Irrigated with Saline -Primary Dressing Applied Mepilex Border, Mepilex Border, NonAdherent Promogran Contact Layer, Promogran -Mepilex Border 1 1 -Promogran 2 1 Right -Tubular Bandage Single Layer -Size of Tubigrip Used Size D -Size D ($) 1 Left -Tubular Bandage Single Layer -Size of Tubigrip Used Size D -Size D ($) 1 -Other single layer D Treatment Response Procedure Procedure Tolerated Well Tolerated Well Pain Scale: 0-10 Numeric Is Patient Pain Free? Yes Yes WC - Visit Discharge Discharge Condition Stable Stable Ambulatory Status Ambulatory, Ambulatory, Walker Walker Transportation Private Auto Private Auto Medication Reconcilliation completed & No No provided to patient/care provider Clinical Summary of Care Provided Yes Yes Assessment/Plan Assessment/Plan (1) Wound of left lower extremity: CODE(S): S81.802A - Unspecified open wound, left lower leg, initial encounter QUALIFIERS: Encounter type: subsequent encounter Qualified Code(s): S81.802D - Unspecified open wound, left lower leg, subsequent encounter (2) Peripheral vascular disease: CODE(S): I73.9 - Peripheral vascular disease, unspecified (3) Atherosclerotic vascular disease: CODE(S): I70.90 - Unspecified atherosclerosis (4) Essential (primary) hypertension: CODE(S): I10 - Essential (primary) hypertension (5) Non-healing wound of left lower extremity: CODE(S): S81.802A - Unspecified open wound, left lower leg, initial encounter PLAN: Plan Debridement performed today in clinic as annotated above. At home wound-care instructions: Her wound is improving. Will have her dress her wound with Promogran and cover with silicone foam bordered dressing. Will have her wear tubigrip compression to both legs. She will change dressings daily and wash with soap and water. Keep dressing clean and dry. Off-loading: The patient was instructed to avoid pressure and friction on the affected areas. Reposition every 2 hours at minimum. Avoid prolonged standing and/or dangling of legs. When seated, feet should be elevated at chest level. Frequent ambulation is encouraged. Diet: Patient encouraged to increase protein intake while taking caution to avoid high carbohydrate and/or sugar intake. Labs/cultures/imaging: Consider arterial testing if not progressing, given her history of vascular disease and monophasic pulses in her ankles/feet. Follow-up: Return in 1 week for wound care follow up. Return sooner or report to the emergency room should symptoms worsen, or new symptoms arise. Note: [employer] speech recognition teacher assistant software was used to create portions of this document. Sound-alike and misspelled words, as well as other teacher assistant errors may be contained in the documentation.
[2023-03-08 10:51] VITALS: BP 107/50; PULSE 67; RESP 18; TEMP 35.9; BMI 26.2
--- NOTE | 2023-03-08 14:30 | PCM.WC.PN ---
History of Present Illness Date of Service: 03/08/23 Chief Complaint: nonhealing traumatic wound of left guido History of Wound: Ijeoma is an 82 yo female that presents for evaluation and treatment of a nonhealing traumatic wound of her left guido that occurred from a skin tear while she was playing with her dog. This occurred on January 04, 2023. She was seen in ER and treated for cellulitis and DVT. She has 3 days left of treatment of Augmentin. She is on Eliquis for treatment of the DVT. She has a h/o aortic aneurysm with repair and smoking history with mild COPD. She also has a h/o renal artery stenosis. She has been using Adaptic and nonadherent dressing and gauze to wound except when she was home and she left it open to air. She has pain and edema L leg. Does not wear compression typically. Has mild edema to right lower leg as well. She denies odor, erythema, fever, chills. Subjective Subjective Ijeoma returns today for follow up of a nonhealing wound of her left guido. She is tolerating treatment with Promogran and adaptic and foam dressing. She has moderate drainage. She denies any increased pain, odor, edema, erythema, fever or chills. Objective Data Objective Data Vital Signs: Vital Signs Temp Pulse Resp BP 96.7 F L 67 18 107/50 L 03/08/23 10:51 03/08/23 10:51 03/08/23 10:51 03/08/23 10:51 Weight: 69.4 kg Body Mass Index (BMI) 26.2 Physical Exam Const alert, oriented x3 and no apparent distress General Appearance: cooperative and comfortable HEENT normocephalic and head/scalp atraumatic Resp normal respiratory effort Effort and Inspection: able to speak in complete sentences Cardio regular rate and regular rhythm Skin Wounds: wounds noted Wound Narrative: as in clinical panel Psych mental status grossly normal, thought process normal, cooperative and affect normal Debridement Note Debridement Note Wound debrided: left guido Laterality: Left Type of Debridement: Excisional debridement Anesthesia Used: 4% Lidocaine Solution, 5% Lidocaine Gel and Cetacaine Depth: Down to and including healthy tissue and in the subcutaneous layer Percentage of wound debrided: 100 Instrument Used: 5mm curette Tissue Removed: Yellow slough, devitalized tissue Severity: Fat Layer Exposed Amount of bleeding with debridement: Mild Bleeding Controlled with: Compression and gauze Patient tolerated procedure: Patient tolerated procedure well Post-Debridement Measurements and Additional Note: Post-Debridement Measurements/Treatment WC - Nurse 1 - General Ulcer Assessment Start: 02/15/23 11:11 Freq: Status: Active Protocol: STANLEY Activity Type Activity Date Activity User E-sign Co-sign Detail Recorded Client Recorded Date Recorded By Document 02/15/23 11:11 JF [id number] 02/15/23 11:13 JF Document 03/01/23 10:40 DL [id number] 03/01/23 10:48 DL Document 03/08/23 10:51 KW [id number] 03/08/23 10:54 KW 02/15/23 03/01/23 03/08/23 11:11 10:40 10:51 WC - Today's Visit Information Type of service Follow-up Visit Follow-up Visit Follow-up Visit (Physician/RESOURCE SPECIALIST (Physician/RESOURCE SPECIALIST (Physician/RESOURCE SPECIALIST ) ) ) Arrival Mode Ambulatory, Ambulatory, Ambulatory Walker Walker Transfer Assistance None None Patient Identification Verified (Name & Yes Yes Yes ) Patient Requires Transmission-Based No No No Precautions Safety Precautions NA Height and Weight Body Mass Index (BMI) 26.2 26.2 26.2 BMI Classification Overweight Overweight Overweight Vital Signs Temperature (97.8 F-99.1 F) 97.4 F L 97.5 F L 96.7 F L Temperature Source Temporal Temporal Temporal Pulse Rate (60-100) 63 55 L 67 Pulse Location Monitor Monitor Respiratory Rate (12-18) 16 20 H 18 Respiratory rate source Observation Observation Observation Blood Pressure (90/60-120/80) 130/67 H 108/53 L 107/50 L Blood Pressure Mean (mm Hg) 88 71 69 Source Monitor Monitor Monitor Position Semi-Fowlers Semi-Fowlers Blood Pressure Location Left Arm Left Arm History Since Last Visit- (Skip if this is Patient's initial visit) Have you changed medications since your No No No last visit? Any new allergies or adverse reactions No No No Had a fall/change in ADL's that may No No No increase risk of falls Signs or symptoms of abuse and/or No No No neglect since last visit Have you been in the hospital since your No No Yes last visit? Has dressing in place as prescribed Yes Yes No Has compression in place as prescribed Yes Yes No Has offloadiing in place as prescribed N/A N/A No Experienced any changes in pain level or No No No management Left Footwear Regular Shoe Right Footwear Regular Shoe Pain Scale: 0-10 Numeric Is Patient Pain Free? Yes Yes Yes WC - Nurse 1 - General Ulcer Measurement Start: 02/15/23 11:11 Freq: Status: Active Protocol: Activity Type Activity Date Activity User E-sign Co-sign Detail Recorded Client Recorded Date Recorded By Document 02/15/23 11:11 [id number] 02/15/23 11:13 JF Document 03/01/23 10:40 DL [id number] 03/01/23 10:48 DL Document 03/08/23 10:51 KW [id number] 03/08/23 10:54 KW 02/15/23 03/01/23 03/08/23 11:11 10:40 10:51 Wound Center Nurse 1 2-left guido -Combined with other wound No No -Current Size (cm) - Length 3.6 2.8 2.9 -Current Size (cm) - Width 2.0 1.9 1.5 -Current Size (cm) - Depth 0.2 0.1 0.1 -Total Square Cm 7.20 5.32 4.35 -Photo Taken Yes -Epithelialization Small 1-33% -Tunneling No No -Undermining/Tunneling No No -Circular Undermining No No -Exudate Amt Medium Medium Medium -Exudate Type Serosanguineous Serosanguineous Serosanguineous -Wound Margin Flat & Intact Distinct, Distinct, Outline Outline Attached Attached -Granulation Amt None Present (0 Medium (34-66%) Medium (34-66%) %) -Granulation Quality Red [place] -Slough/Fibrin Yes Yes -Necrosis Amt Large (67-100%) Medium (34-66%) Medium (34-66%) -Necrotic Tissue Type Adherent Slough Adherent Slough Adherent Slough -Structure Exposed N/A N/A -Texture (Kaitlin-wound Skin Appearance) Not Assessed Scarring Assessed -Moisture (Kaitlin-wound Skin Appearance) Assessed,Dry/ No Abnormality Assessed Scaly -Color (Kaitlin-wound Skin Appearance) Assessed, Hemosiderin Assessed Hemosiderin Staining Staining -Temperature (Kaitlin-wound Skin No Abnormality No Abnormality No Abnormality Appearance) (Pt Warm) (Pt Warm) (Pt Warm) -Tenderness on Palpation (Kaitlin-wound No No No Skin Appearance) -Ulcer Cleansing Wound Cleanser Soap and Water Wound Cleanser -Foul Odor after Cleansing No No No -Anesthetic Used 5% Lidocaine 5% Lidocaine 5% Lidocaine Gel Gel Gel Lower Limb Edema Present Yes Yes Left Calf (cm) 30.6 29 30.1 Left Ankle (cm) 19.5 18.8 19.7 WC - Nurse 2 - General Ulcer CM Notes Start: 02/15/23 11:11 Freq: Status: Active Protocol: Activity Type Activity Date Activity User E-sign Co-sign Detail Recorded Client Recorded Date Recorded By Document 02/15/23 12:03 MW [id number] 02/15/23 12:17 MW Document 03/01/23 11:04 MW Desktop 03/01/23 11:15 MW Document 03/08/23 11:15 MW [id number] 03/08/23 11:29 MW 02/15/23 03/01/23 03/08/23 12:03 11:04 11:15 Wound Center Nurse 2 2-left guido -Time 12:04 11:05 11:16 -Correct Patient Yes Yes Yes -Correct Side, Site, Position Yes Yes Yes -Correct Procedure Yes Yes Yes -Procedure Performed Yes Yes Yes -Type of Procedure Debridement Debridement Debridement -Clinical Debridement Subcutaneous Subcutaneous Subcutaneous -Tissue Removed Subcutaneous Subcutaneous Epidermis, Subcutaneous -Post Debridement (cm) - Length 3.5 2.5 2.2 -Post Debridement (cm) - Width 2.1 1.6 1.5 -Post Debridement (cm) - Depth 0.2 0.2 0.2 -Total Square (Post) (cm) 7.35 4.00 3.30 -Area of Debridement (cm) - Length 3.5 2.5 2.2 -Area of Debridement (cm) - Width 2.1 1.6 1.5 -Total Square (Area) (cm) 7.35 4.00 3.30 -Tunneling No No No -Undermining/Tunneling No No No -Circular Undermining No No No -Wound/Ulcer Outcome Not Healed Not Healed Not Healed -Ulcer Cleansing Rinsed/ Rinsed/ Rinsed/ Irrigated with Irrigated with Irrigated with Saline Saline Saline -Foul Odor after Cleansing No No No -Bioengineered Tissue No No No -Bleeding Controlled with Pressure Pressure Pressure -Treatment Response Procedure Procedure Procedure Tolerated Well Tolerated Well Tolerated Well -Offloading No No No -Debridement - Subq, 1st 20sq cm Yes Yes Yes Pain Scale: 0-10 Numeric Is Patient Pain Free? Yes Yes Yes WC - Nurse 3 - General Ulcer D/C NN Start: 02/15/23 11:11 Freq: Status: Active Protocol: Activity Type Activity Date Activity User E-sign Co-sign Detail Recorded Client Recorded Date Recorded By Document 02/15/23 12:31 RB [id number] 02/15/23 12:33 RB Document 03/01/23 11:28 RB [id number] 03/01/23 11:30 RB Document 03/08/23 11:47 MW [id number] 03/08/23 11:49 MW 02/15/23 03/01/23 03/08/23 12:31 11:28 11:47 Wound Care Center Nurse 3 2-left guido -Ulcer Cleansing Rinsed/ Rinsed/ Irrigated with Irrigated with Saline Saline -Foul Odor after Cleansing No -Negative Pressure Wound Therapy N/A -Primary Dressing Applied Mepilex Border, Mepilex Border, Mepilex Border, NonAdherent Promogran Promogran Contact Layer, Promogran -Mepilex Border 1 1 1 -Promogran 2 1 1 Right -Tubular Bandage Single Layer -Size of Tubigrip Used Size D -Size D ($) 1 Left -Lotion applied to leg before No compression wrap -Tubular Bandage Single Layer -Size of Tubigrip Used Size D -Size D ($) 1 -Other single layer D single layer tubigrip Treatment Response Procedure Procedure Procedure Tolerated Well Tolerated Well Tolerated Well Pain Scale: 0-10 Numeric Is Patient Pain Free? Yes Yes Yes Teaching: Wound Center Dressing Your Wound -Person Taught Patient -Teaching Method Discussion -Response to teaching Verbalize understanding WC - Visit Discharge Discharge Condition Stable Stable Stable Ambulatory Status Ambulatory, Ambulatory, Ambulatory, Walker Walker Walker Transportation Private Auto Private Auto Private Auto Accompanied by self Medication Reconcilliation completed & No No No provided to patient/care provider Clinical Summary of Care Provided Yes Yes Yes Assessment/Plan Assessment/Plan (1) Wound of left lower extremity: CODE(S): S81.802A - Unspecified open wound, left lower leg, initial encounter QUALIFIERS: Encounter type: subsequent encounter Qualified Code(s): S81.802D - Unspecified open wound, left lower leg, subsequent encounter (2) Peripheral vascular disease: CODE(S): I73.9 - Peripheral vascular disease, unspecified (3) Atherosclerotic vascular disease: CODE(S): I70.90 - Unspecified atherosclerosis (4) Essential (primary) hypertension: CODE(S): I10 - Essential (primary) hypertension (5) Non-healing wound of left lower extremity: CODE(S): S81.802A - Unspecified open wound, left lower leg, initial encounter (6) Venous insufficiency of both lower extremities: CODE(S): I87.2 - Venous insufficiency (chronic) (peripheral) (7) Ulcer of left guido with fat layer exposed: CODE(S): L97.822 - Non-pressure chronic ulcer of other part of left lower leg with fat layer exposed PLAN: Plan Debridement performed today in clinic as annotated above. At home wound-care instructions: Her wound is improving. Will have her continue to dress her wound with Promogran and cover with silicone foam bordered dressing for moderate drainage. Will have her wear tubigrip compression to both legs. She will change dressings daily and wash with soap and water. Keep dressing clean and dry. Due to her delayed wound healing, she would benefit from application of advanced wound healing product such as Epifix. Will apply to use this through her insurance company. Off-loading: The patient was instructed to avoid pressure and friction on the affected areas. Reposition every 2 hours at minimum. Avoid prolonged standing and/or dangling of legs. When seated, feet should be elevated at chest level. Frequent ambulation is encouraged. Diet: Patient encouraged to increase protein intake while taking caution to avoid high carbohydrate and/or sugar intake. Labs/cultures/imaging: Consider arterial testing if not progressing, given her history of vascular disease and monophasic pulses in her ankles/feet. Follow-up: Return in 1 week for wound care follow up. Return sooner or report to the emergency room should symptoms worsen, or new symptoms arise. Note: [employer] speech recognition factory representative software was used to create portions of this document. Sound-alike and misspelled words, as well as other factory representative errors may be contained in the documentation.
== END 2023-03-14 23:59 | disposition home or self-care (01) ==
LOC: WC 10:15
PROVIDERS: PCP Internal Medicine; Referring Provider Internal Medicine; Visit Provider Family Medicine
DX: I73.9 Peripheral vascular disease, unspecified (principal); J44.9 Chronic obstructive pulmonary disease, unspecified; S81.812A Laceration without foreign body, left lower leg, initial encounter; R60.0 Localized edema; Z86.718 Personal history of other venous thrombosis and embolism; X58.XXXD Exposure to other specified factors, subsequent encounter
CPT/HCPCS: 11042

== ENCOUNTER 2023-04-12 10:15 | Outpatient (RCR) | payer MEDICARE, SELFPAY ==
[2023-03-15 00:38] VITALS: BP 107/50; PULSE 67; RESP 18; TEMP 35.9; BMI 26.2
[2023-03-15 11:24] VITALS: BP 111/56; PULSE 72; RESP 18; TEMP 35.9; BMI 26.2
--- NOTE | 2023-03-15 13:11 | PN.PCM_ITS ---
History of Present Illness Date of Service: 03/15/23 Chief Complaint: nonhealing traumatic wound of left guido History of Wound: Ijeoma is an 82 yo female that presents for evaluation and treatment of a nonhealing traumatic wound of her left guido that occurred from a skin tear while she was playing with her dog. This occurred on January 04, 2023. She was seen in ER and treated for cellulitis and DVT. She has 3 days left of treatment of Augmentin. She is on Eliquis for treatment of the DVT. She has a h/o aortic aneurysm with repair and smoking history with mild COPD. She also has a h/o renal artery stenosis. She has been using Adaptic and nonadherent dressing and gauze to wound except when she was home and she left it open to air. She has pain and edema L leg. Does not wear compression typically. Has mild edema to right lower leg as well. She denies odor, erythema, fever, chills. Subjective Subjective Ijeoma returns today for follow up of a nonhealing wound of her left guido. She is tolerating treatment with Promogran and adaptic and foam dressing every other day. She has moderate drainage. She denies any increased pain, odor, edema, erythema, fever or chills. Objective Data Objective Data Vital Signs: Vital Signs Temp Pulse Resp BP 96.6 F L 72 18 111/56 L 03/15/23 11:24 03/15/23 11:24 03/15/23 11:24 03/15/23 11:24 Weight: 69.4 kg Body Mass Index (BMI) 26.2 Physical Exam Const alert, oriented x3 and no apparent distress General Appearance: cooperative and comfortable HEENT normocephalic and head/scalp atraumatic Resp normal respiratory effort Effort and Inspection: able to speak in complete sentences Cardio regular rate and regular rhythm Skin Wounds: wounds noted Wound Narrative: as in clinical panel Psych mental status grossly normal, thought process normal, cooperative and affect normal Debridement Note Debridement Note Wound debrided: left guido Laterality: Left Type of Debridement: Excisional debridement Anesthesia Used: 4% Lidocaine Solution, 5% Lidocaine Gel and Cetacaine Depth: Down to and including healthy tissue and in the subcutaneous layer Percentage of wound debrided: 100 Instrument Used: 5mm curette Tissue Removed: Yellow slough, devitalized tissue Severity: Fat Layer Exposed Amount of bleeding with debridement: Mild Bleeding Controlled with: Compression and gauze Patient tolerated procedure: Patient tolerated procedure well Post-Debridement Measurements and Additional Note: Post-Debridement Measurements/Treatment - Nurse 1 - General Ulcer Assessment Start: 03/15/23 11:23 Freq: Status: Active Protocol: STANLEY Activity Type Activity Date Activity User E-sign Co-sign Detail Recorded Client Recorded Date Recorded By Document 03/15/23 11:24 KHANH [id number] 03/15/23 11:25 RB 03/15/23 11:24 - Today's Visit Information Type of service Follow-up Visit (Physician/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 CUPPING 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 ) Arrival Mode Ambulatory Transfer Assistance None Patient Identification Verified (Name & Yes ) Patient Requires Transmission-Based No Precautions Height and Weight Body Mass Index (BMI) 26.2 BMI Classification Overweight Vital Signs Temperature (97.8 F-99.1 F) 96.6 F L Temperature Source Temporal Pulse Rate (60-100) 72 Pulse Location Monitor Respiratory Rate (12-18) 18 Respiratory rate source Observation Blood Pressure (90/60-120/80) 111/56 L Blood Pressure Mean (mm Hg) 74 Source Monitor Position Semi-Fowlers Blood Pressure Location Left Arm History Since Last Visit- (Skip if this is Patient's initial visit) Have you changed medications since your No last visit? Any new allergies or adverse reactions No Had a fall/change in ADL's that may No increase risk of falls Signs or symptoms of abuse and/or No neglect since last visit Have you been in the hospital since your No last visit? Has dressing in place as prescribed Yes Has compression in place as prescribed Yes Has offloadiing in place as prescribed No Experienced any changes in pain level or No management Pain Scale: 0-10 Numeric Is Patient Pain Free? Yes - Nurse 1 - General Ulcer Measurement Start: 03/15/23 11:23 Freq: Status: Active Protocol: Activity Type Activity Date Activity User E-sign Co-sign Detail Recorded Client Recorded Date Recorded By Document 03/15/23 11:24 KHANH [id number] 03/15/23 11:25 RB 03/15/23 11:24 Wound Center Nurse 1 2-left guido -Combined with other wound No -Current Size (cm) - Length 2.2 -Current Size (cm) - Width 1.2 -Current Size (cm) - Depth 0.2 -Total Square Cm 2.64 -Photo Taken Yes -Tunneling No -Undermining/Tunneling No -Circular Undermining No -Exudate Amt Medium -Exudate Type Serosanguineous -Wound Margin Distinct, Outline Attached -Granulation Amt Medium (34-66%) -Granulation Quality [place] -Slough/Fibrin Yes -Necrosis Amt Medium (34-66%) -Necrotic Tissue Type Adherent Slough -Structure Exposed N/A -Texture (Kaitlin-wound Skin Appearance) Assessed, Scarring -Moisture (Kaitlin-wound Skin Appearance) Assessed -Color (Kaitlin-wound Skin Appearance) Assessed -Temperature (Kaitlin-wound Skin No Abnormality Appearance) (Pt Warm) -Tenderness on Palpation (Kaitlin-wound No Skin Appearance) -Ulcer Cleansing Wound Cleanser -Foul Odor after Cleansing No -Anesthetic Used 5% Lidocaine Gel Lower Limb Edema Present Yes Left Calf (cm) 29.2 Left Ankle (cm) 19.5 - Nurse 3 - General Ulcer D/C NN Start: 03/15/23 11:23 Freq: Status: Active Protocol: Activity Type Activity Date Activity User E-sign Co-sign Detail Recorded Client Recorded Date Recorded By Document 03/15/23 11:53 DL [id number] 03/15/23 11:55 DL 03/15/23 11:53 Wound Care Center Nurse 3 2-left guido -Ulcer Cleansing Rinsed/ Irrigated with Saline -Foul Odor after Cleansing No -Primary Dressing Applied Mepilex Border, Promogran -Other Covering tubigrip -Mepilex Border 1 -Promogran 1 Treatment Response Procedure Tolerated Well Pain Scale: 0-10 Numeric Is Patient Pain Free? Yes - Visit Discharge Discharge Condition Stable Ambulatory Status Ambulatory, Walker Transportation Private Auto Facility Type Home Health Orders Sent Yes Assessment/Plan Assessment/Plan (1) Wound of left lower extremity: CODE(S): S81.802A - Unspecified open wound, left lower leg, initial encounter QUALIFIERS: Encounter type: subsequent encounter Qualified Code(s): S81.802D - Unspecified open wound, left lower leg, subsequent encounter (2) Peripheral vascular disease: CODE(S): I73.9 - Peripheral vascular disease, unspecified (3) Atherosclerotic vascular disease: CODE(S): I70.90 - Unspecified atherosclerosis (4) Essential (primary) hypertension: CODE(S): I10 - Essential (primary) hypertension (5) Non-healing wound of left lower extremity: CODE(S): S81.802A - Unspecified open wound, left lower leg, initial encounter (6) Venous insufficiency of both lower extremities: CODE(S): I87.2 - Venous insufficiency (chronic) (peripheral) (7) Ulcer of left guido with fat layer exposed: CODE(S): L97.822 - Non-pressure chronic ulcer of other part of left lower leg with fat layer exposed PLAN: Plan Debridement performed today in clinic as annotated above. At home wound-care instructions: Her wound is improving. Will have her continue to dress her wound with Promogran and cover with silicone foam bordered dressing for moderate drainage. Will have her wear tubigrip compression to both legs. She will change dressings every other day and wash with soap and water. Keep dressing clean and dry. Due to her delayed wound healing, she would benefit from application of advanced wound healing product such as Epifix. Will apply to use this through her insurance company. Off-loading: The patient was instructed to avoid pressure and friction on the affected areas. Reposition every 2 hours at minimum. Avoid prolonged standing and/or dangling of legs. When seated, feet should be elevated at chest level. Frequent ambulation is encouraged. Diet: Patient encouraged to increase protein intake while taking caution to avoid high carbohydrate and/or sugar intake. Labs/cultures/imaging: Consider arterial testing if not progressing, given her history of vascular disease and monophasic pulses in her ankles/feet. Follow-up: Return in 1 week for wound care follow up. Return sooner or report to the emergency room should symptoms worsen, or new symptoms arise. Note: [employer] speech recognition junior manufacturing engineer software was used to create portions of this document. Sound-alike and misspelled words, as well as other junior manufacturing engineer errors may be contained in the documentation.
[2023-03-22 11:08] VITALS: BP 139/65; PULSE 59; RESP 18; TEMP 35.5; BMI 26.2
--- NOTE | 2023-03-22 13:17 | PN.PCM_ITS ---
History of Present Illness Date of Service: 03/22/23 Chief Complaint: nonhealing traumatic wound of left guido History of Wound: Ijeoma is an 82 yo female that presents for evaluation and treatment of a nonhealing traumatic wound of her left guido that occurred from a skin tear while she was playing with her dog. This occurred on January 04, 2023. She was seen in ER and treated for cellulitis and DVT. She has 3 days left of treatment of Augmentin. She is on Eliquis for treatment of the DVT. She has a h/o aortic aneurysm with repair and smoking history with mild COPD. She also has a h/o renal artery stenosis. She has been using Adaptic and nonadherent dressing and gauze to wound except when she was home and she left it open to air. She has pain and edema L leg. Does not wear compression typically. Has mild edema to right lower leg as well. She denies odor, erythema, fever, chills. Subjective Subjective Ijeoma returns today for follow up of a nonhealing wound of her left guido. She is tolerating treatment with Promogran and adaptic and foam dressing every other day. She has moderate drainage. She denies any increased pain, odor, edema, erythema, fever or chills. Objective Data Objective Data Vital Signs: Vital Signs Temp Pulse Resp BP O2 Del Method 96 F L 59 L 18 139/65 H Room Air 03/22/23 11:08 03/22/23 11:08 03/22/23 11:08 03/22/23 11:08 03/22/23 11:08 Oxygen Delivery Method Room Air Weight: 69.4 kg Body Mass Index (BMI) 26.2 Physical Exam Const alert, oriented x3 and no apparent distress General Appearance: cooperative and comfortable HEENT normocephalic and head/scalp atraumatic Resp normal respiratory effort Effort and Inspection: able to speak in complete sentences Cardio regular rate and regular rhythm Skin Wounds: wounds noted Wound Narrative: as in clinical panel Psych mental status grossly normal, thought process normal, cooperative and affect normal Debridement Note Debridement Note Wound debrided: left guido Laterality: Left Type of Debridement: Excisional debridement Anesthesia Used: 4% Lidocaine Solution, 5% Lidocaine Gel and Cetacaine Depth: Down to and including healthy tissue and in the subcutaneous layer Percentage of wound debrided: 100 Instrument Used: 5mm curette Tissue Removed: Yellow slough, devitalized tissue Severity: Fat Layer Exposed Amount of bleeding with debridement: Mild Bleeding Controlled with: Compression and gauze Patient tolerated procedure: Patient tolerated procedure well Post-Debridement Measurements and Additional Note: Post-Debridement Measurements/Treatment - Nurse 1 - General Ulcer Assessment Start: 03/15/23 11:23 Freq: Status: Active Protocol: PHONG.JONATHANT Activity Type Activity Date Activity User E-sign Co-sign Detail Recorded Client Recorded Date Recorded By Document 03/15/23 11:24 RB [id number] 03/15/23 11:25 RB Document 03/22/23 11:08 MT [id number] 03/22/23 11:15 MT Edit Result 03/22/23 11:08 MT (1) [id number] 03/22/23 11:18 MT (1) Pulse Rate (60-100) => 59 L Blood Pressure (90/60-120/80) => 139/65 H Blood Pressure Mean (mm Hg) => 89 03/15/23 03/22/23 11:24 11:08 - Today's Visit Information Type of service Follow-up Visit Follow-up Visit (Physician/ENGINEERING DRAFTER (Physician/ENGINEERING DRAFTER ) ) Arrival Mode Ambulatory Ambulatory Transfer Assistance None Accompanied by self Patient Identification Verified (Name & Yes Yes ) Patient Requires Transmission-Based No Precautions Safety Precautions Fall Prevention Height and Weight Body Mass Index (BMI) 26.2 26.2 BMI Classification Overweight Overweight Vital Signs Temperature (97.8 F-99.1 F) 96.6 F L 96 F L Temperature Source Temporal Temporal Pulse Rate (60-100) 72 59 L Pulse Location Monitor Monitor Respiratory Rate (12-18) 18 18 Respiratory rate source Observation Observation Oxygen Delivery Method Room Air Blood Pressure (90/60-120/80) 111/56 L 139/65 H Blood Pressure Mean (mm Hg) 74 89 Source Monitor Monitor Position Semi-Fowlers Sitting Blood Pressure Location Left Arm Right Arm History Since Last Visit- (Skip if this is Patient's initial visit) Have you changed medications since your No last visit? Any new allergies or adverse reactions No Had a fall/change in ADL's that may No increase risk of falls Signs or symptoms of abuse and/or No neglect since last visit Have you been in the hospital since your No last visit? Has dressing in place as prescribed Yes Yes Has compression in place as prescribed Yes N/A Has offloadiing in place as prescribed No N/A Experienced any changes in pain level or No No management Left Footwear Regular Shoe Right Footwear Regular Shoe Pain Scale: 0-10 Numeric Is Patient Pain Free? Yes Yes - Nurse 1 - General Ulcer Measurement Start: 03/15/23 11:23 Freq: Status: Active Protocol: Activity Type Activity Date Activity User E-sign Co-sign Detail Recorded Client Recorded Date Recorded By Document 03/15/23 11:24 RB [id number] 03/15/23 11:25 RB Document 03/22/23 11:08 TN [id number] 03/22/23 11:15 TN 03/15/23 03/22/23 11:24 11:08 Wound Center Nurse 1 2-left guido -Combined with other wound No -Current Size (cm) - Length 2.2 1.9 -Current Size (cm) - Width 1.2 1.4 -Current Size (cm) - Depth 0.2 0.1 -Total Square Cm 2.64 2.66 -Photo Taken Yes -Tunneling No -Undermining/Tunneling No -Circular Undermining No -Exudate Amt Medium Small -Exudate Type Serosanguineous Serous -Wound Margin Distinct, Flat & Intact Outline Attached -Granulation Amt Medium (34-66%) Small (1-33%) -Granulation Quality [place] Pale -Slough/Fibrin Yes -Necrosis Amt Medium (34-66%) Large (67-100%) -Necrotic Tissue Type Adherent Slough Adherent Slough -Structure Exposed N/A -Texture (Kaitlin-wound Skin Appearance) Assessed, Assessed Scarring -Moisture (Kaitlin-wound Skin Appearance) Assessed Assessed -Color (Kaitlin-wound Skin Appearance) Assessed Assessed -Temperature (Kaitlin-wound Skin No Abnormality No Abnormality Appearance) (Pt Warm) (Pt Warm) -Tenderness on Palpation (Kaitlin-wound No No Skin Appearance) -Ulcer Cleansing Wound Cleanser Wound Cleanser -Foul Odor after Cleansing No No -Anesthetic Used 5% Lidocaine 5% Lidocaine Gel Gel Lower Limb Edema Present Yes Yes Left Calf (cm) 29.2 29.2 Left Ankle (cm) 19.5 19.5 WC - Nurse 2 - General Ulcer CM Notes Start: 03/15/23 11:23 Freq: Status: Active Protocol: Activity Type Activity Date Activity User E-sign Co-sign Detail Recorded Client Recorded Date Recorded By Document 03/15/23 13:26 PL [id number] 03/15/23 13:27 PL Document 03/22/23 12:47 PL [id number] 03/22/23 12:48 PL 03/15/23 03/22/23 13:26 12:47 Wound Center Nurse 2 2-left guido -Time 11:38 12:13 -Correct Patient Yes Yes -Correct Side, Site, Position Yes Yes -Correct Procedure Yes Yes -Procedure Performed Yes Yes -Type of Procedure Debridement Debridement -Clinical Debridement Subcutaneous Subcutaneous -Tissue Removed Subcutaneous Subcutaneous -Post Debridement (cm) - Length 2.0 1.7 -Post Debridement (cm) - Width 1.3 1.8 -Post Debridement (cm) - Depth 0.2 0.2 -Total Square (Post) (cm) 2.60 3.06 -Area of Debridement (cm) - Length 2.0 1.7 -Area of Debridement (cm) - Width 1.3 1.8 -Total Square (Area) (cm) 2.60 3.06 -Tunneling No No -Undermining/Tunneling No No -Circular Undermining No No -Wound/Ulcer Outcome Not Healed Not Healed -Ulcer Cleansing Rinsed/ Rinsed/ Irrigated with Irrigated with Saline Saline -Foul Odor after Cleansing No No -Bioengineered Tissue No Yes -Type of Bioengineered Tissue Epifix 18mm Disc -Expiration Date 12/14/27 -Product Lot Number [id number] -Percent Used 100 -Bleeding Controlled with Pressure Pressure -Treatment Response Procedure Procedure Tolerated Well Tolerated Well -Debridement - Subq, 1st 20sq cm Yes No -Apply Skin Sub - 1st 25 sq cm - Legs 1 -Epifix 18mm Disc 3 Pain Scale: 0-10 Numeric Is Patient Pain Free? Yes Yes WC - Nurse 3 - General Ulcer D/C NN Start: 03/15/23 11:23 Freq: Status: Active Protocol: Activity Type Activity Date Activity User E-sign Co-sign Detail Recorded Client Recorded Date Recorded By Document 03/15/23 11:53 DL [id number] 03/15/23 11:55 DL Document 03/22/23 12:32 RB [id number] 03/22/23 12:32 RB 03/15/23 03/22/23 11:53 12:32 Wound Care Center Nurse 3 2-left guido -Ulcer Cleansing Rinsed/ Irrigated with Saline -Foul Odor after Cleansing No -Primary Dressing Applied Mepilex Border, Promogran -Primary Dressing Covered/Secured with Dry Gauze & Roll Gauze, Secured with Tape -Other Covering tubigrip -Mepilex Border 1 -Promogran 1 Left -Tubular Bandage Single Layer -Size of Tubigrip Used Size D -Size D ($) 1 Treatment Response Procedure Procedure Tolerated Well Tolerated Well Pain Scale: 0-10 Numeric Is Patient Pain Free? Yes Yes WC - Visit Discharge Discharge Condition Stable Stable Ambulatory Status Ambulatory, Ambulatory, Walker Walker Transportation Private Auto Private Auto Medication Reconcilliation completed & No provided to patient/care provider Clinical Summary of Care Provided Yes Facility Type Home Health Orders Sent Yes Assessment/Plan Assessment/Plan (1) Wound of left lower extremity: CODE(S): S81.802A - Unspecified open wound, left lower leg, initial encounter QUALIFIERS: Encounter type: subsequent encounter Qualified Code(s): S81.802D - Unspecified open wound, left lower leg, subsequent encounter (2) Peripheral vascular disease: CODE(S): I73.9 - Peripheral vascular disease, unspecified (3) Atherosclerotic vascular disease: CODE(S): I70.90 - Unspecified atherosclerosis (4) Essential (primary) hypertension: CODE(S): I10 - Essential (primary) hypertension (5) Non-healing wound of left lower extremity: CODE(S): S81.802A - Unspecified open wound, left lower leg, initial encounter (6) Venous insufficiency of both lower extremities: CODE(S): I87.2 - Venous insufficiency (chronic) (peripheral) (7) Ulcer of left guido with fat layer exposed: CODE(S): L97.822 - Non-pressure chronic ulcer of other part of left lower leg with fat layer exposed PLAN: Plan Debridement performed today in clinic as annotated above. At home wound-care instructions: Her wound is improving slowly. Epifix #1 applied today per cab driver guidelines and rehydrated with sterile saline and covered with wound veil and secured with steristrips. She will keep dressing dry and intact and change outer dressing of gauze as needed for soiling or if drainage comes through. Will have her wear tubigrip compression to both legs. She will change dressings every other day and wash with soap and water. Keep dressing clean and dry. Off-loading: The patient was instructed to avoid pressure and friction on the affected areas. Reposition every 2 hours at minimum. Avoid prolonged standing and/or dangling of legs. When seated, feet should be elevated at chest level. Frequent ambulation is encouraged. Diet: Patient encouraged to increase protein intake while taking caution to avoid high carbohydrate and/or sugar intake. Labs/cultures/imaging: Consider arterial testing if not progressing, given her history of vascular disease and monophasic pulses in her ankles/feet. Follow-up: Return in 1 week for wound care follow up. Return sooner or report to the emergency room should symptoms worsen, or new symptoms arise. Note: [employer] speech recognition cnc machine operator software was used to create portions of this document. Sound-alike and misspelled words, as well as other cnc machine operator errors may be contained in the documentation.
[2023-03-29 12:11] VITALS: BP 161/72; PULSE 61; RESP 18; TEMP 35.7; BMI 26.2
--- NOTE | 2023-03-29 13:18 | PCM.WC.PN ---
History of Present Illness Date of Service: 03/29/23 Chief Complaint: nonhealing traumatic wound of left guido History of Wound: Ijeoma is an 82 yo female that presents for evaluation and treatment of a nonhealing traumatic wound of her left guido that occurred from a skin tear while she was playing with her dog. This occurred on January 04, 2023. She was seen in ER and treated for cellulitis and DVT. She has 3 days left of treatment of Augmentin. She is on Eliquis for treatment of the DVT. She has a h/o aortic aneurysm with repair and smoking history with mild COPD. She also has a h/o renal artery stenosis. She has been using Adaptic and nonadherent dressing and gauze to wound except when she was home and she left it open to air. She has pain and edema L leg. Does not wear compression typically. Has mild edema to right lower leg as well. She denies odor, erythema, fever, chills. Subjective Subjective Ijeoma returns today for follow up of a nonhealing wound of her left guido. She tolerated Epifix #1 application last week. She has minimal drainage. She denies any increased pain, odor, edema, erythema, fever or chills. Objective Data Objective Data Vital Signs: Vital Signs Temp Pulse Resp BP O2 Del Method 96.3 F L 61 18 161/72 H Room Air 03/29/23 12:11 03/29/23 12:11 03/29/23 12:11 03/29/23 12:11 03/22/23 11:08 Oxygen Delivery Method Room Air Weight: 69.4 kg Body Mass Index (BMI) 26.2 Physical Exam Const alert, oriented x3 and no apparent distress General Appearance: cooperative and comfortable HEENT normocephalic and head/scalp atraumatic Resp normal respiratory effort Effort and Inspection: able to speak in complete sentences Cardio regular rate and regular rhythm Skin Wounds: wounds noted Wound Narrative: as in clinical panel Psych mental status grossly normal, thought process normal, cooperative and affect normal Debridement Note Debridement Note Wound debrided: left guido Laterality: Left Type of Debridement: Excisional debridement Anesthesia Used: 4% Lidocaine Solution, 5% Lidocaine Gel and Cetacaine Depth: Down to and including healthy tissue and in the subcutaneous layer Percentage of wound debrided: 100 Instrument Used: 3mm curette Tissue Removed: Yellow slough, devitalized tissue Severity: Fat Layer Exposed Amount of bleeding with debridement: Mild Bleeding Controlled with: Compression and gauze Patient tolerated procedure: Patient tolerated procedure well Post-Debridement Measurements and Additional Note: Post-Debridement Measurements/Treatment - Nurse 1 - General Ulcer Assessment Start: 03/15/23 11:23 Freq: Status: Active Protocol: STANLEY Activity Type Activity Date Activity User E-sign Co-sign Detail Recorded Client Recorded Date Recorded By Document 03/15/23 11:24 RB [id number] 03/15/23 11:25 RB Document 03/22/23 11:08 MT [id number] 03/22/23 11:15 MT Edit Result 03/22/23 11:08 MT (1) [id number] 03/22/23 11:18 MT Document 03/29/23 12:11 RB [id number] 03/29/23 12:13 RB (1) Pulse Rate (60-100) => 59 L Blood Pressure (90/60-120/80) => 139/65 H Blood Pressure Mean (mm Hg) => 89 03/15/23 03/22/23 03/29/23 11:24 11:08 12:11 - Today's Visit Information Type of service Follow-up Visit Follow-up Visit Follow-up Visit (Physician/CARPET YARN WINDER OPERATOR (Physician/CARPET YARN WINDER OPERATOR (Physician/CARPET YARN WINDER OPERATOR ) ) ) Arrival Mode Ambulatory Ambulatory Ambulatory Transfer Assistance None None Accompanied by self Patient Identification Verified (Name & Yes Yes Yes ) Patient Requires Transmission-Based No No Precautions Safety Precautions Fall Prevention Height and Weight Body Mass Index (BMI) 26.2 26.2 26.2 BMI Classification Overweight Overweight Overweight Vital Signs Temperature (97.8 F-99.1 F) 96.6 F L 96 F L 96.3 F L Temperature Source Temporal Temporal Temporal Pulse Rate (60-100) 72 59 L 61 Pulse Location Monitor Monitor Monitor Respiratory Rate (12-18) 18 18 18 Respiratory rate source Observation Observation Observation Oxygen Delivery Method Room Air Blood Pressure (90/60-120/80) 111/56 L 139/65 H 161/72 H Blood Pressure Mean (mm Hg) 74 89 101 Source Monitor Monitor Monitor Position Semi-Fowlers Sitting Semi-Fowlers Blood Pressure Location Left Arm Right Arm Left Arm History Since Last Visit- (Skip if this is Patient's initial visit) Have you changed medications since your No No last visit? Any new allergies or adverse reactions No No Had a fall/change in ADL's that may No No increase risk of falls Signs or symptoms of abuse and/or No No neglect since last visit Have you been in the hospital since your No No last visit? Has dressing in place as prescribed Yes Yes Yes Has compression in place as prescribed Yes N/A Yes Has offloadiing in place as prescribed No N/A No Experienced any changes in pain level or No No No management Left Footwear Regular Shoe Right Footwear Regular Shoe Pain Scale: 0-10 Numeric Is Patient Pain Free? Yes Yes Yes WC - Nurse 1 - General Ulcer Measurement Start: 03/15/23 11:23 Freq: Status: Active Protocol: Activity Type Activity Date Activity User E-sign Co-sign Detail Recorded Client Recorded Date Recorded By Document 03/15/23 11:24 RB [id number] 03/15/23 11:25 RB Document 03/22/23 11:08 DC [id number] 03/22/23 11:15 DC Document 03/29/23 12:11 RB [id number] 03/29/23 12:13 RB 03/15/23 03/22/23 03/29/23 11:24 11:08 12:11 Wound Center Nurse 1 2-left guido -Combined with other wound No No -Current Size (cm) - Length 2.2 1.9 1.7 -Current Size (cm) - Width 1.2 1.4 1.1 -Current Size (cm) - Depth 0.2 0.1 0.1 -Total Square Cm 2.64 2.66 1.87 -Photo Taken Yes Yes -Tunneling No No -Undermining/Tunneling No No -Circular Undermining No No -Exudate Amt Medium Small Medium -Exudate Type Serosanguineous Serous Serosanguineous -Wound Margin Distinct, Flat & Intact Distinct, Outline Outline Attached Attached -Granulation Amt Medium (34-66%) Small (1-33%) Medium (34-66%) -Granulation Quality Wray Pale Wray -Slough/Fibrin Yes -Necrosis Amt Medium (34-66%) Large (67-100%) Medium (34-66%) -Necrotic Tissue Type Adherent Slough Adherent Slough Adherent Slough -Structure Exposed N/A N/A -Texture (Kaitlin-wound Skin Appearance) Assessed, Assessed Assessed Scarring -Moisture (Kaitlin-wound Skin Appearance) Assessed Assessed Assessed -Color (Kaitlin-wound Skin Appearance) Assessed Assessed Assessed -Temperature (Kaitlin-wound Skin No Abnormality No Abnormality No Abnormality Appearance) (Pt Warm) (Pt Warm) (Pt Warm) -Tenderness on Palpation (Kaitlin-wound No No No Skin Appearance) -Ulcer Cleansing Wound Cleanser Wound Cleanser Wound Cleanser -Foul Odor after Cleansing No No No -Anesthetic Used 5% Lidocaine 5% Lidocaine 5% Lidocaine Gel Gel Gel Lower Limb Edema Present Yes Yes Yes Left Calf (cm) 29.2 29.2 30.7 Left Ankle (cm) 19.5 19.5 21.7 WC - Nurse 2 - General Ulcer CM Notes Start: 03/15/23 11:23 Freq: Status: Active Protocol: Activity Type Activity Date Activity User E-sign Co-sign Detail Recorded Client Recorded Date Recorded By Document 03/15/23 13:26 PL [id number] 03/15/23 13:27 PL Document 03/22/23 12:47 PL [id number] 03/22/23 12:48 PL 03/15/23 03/22/23 13:26 12:47 Wound Center Nurse 2 2-left guido -Time 11:38 12:13 -Correct Patient Yes Yes -Correct Side, Site, Position Yes Yes -Correct Procedure Yes Yes -Procedure Performed Yes Yes -Type of Procedure Debridement Debridement -Clinical Debridement Subcutaneous Subcutaneous -Tissue Removed Subcutaneous Subcutaneous -Post Debridement (cm) - Length 2.0 1.7 -Post Debridement (cm) - Width 1.3 1.8 -Post Debridement (cm) - Depth 0.2 0.2 -Total Square (Post) (cm) 2.60 3.06 -Area of Debridement (cm) - Length 2.0 1.7 -Area of Debridement (cm) - Width 1.3 1.8 -Total Square (Area) (cm) 2.60 3.06 -Tunneling No No -Undermining/Tunneling No No -Circular Undermining No No -Wound/Ulcer Outcome Not Healed Not Healed -Ulcer Cleansing Rinsed/ Rinsed/ Irrigated with Irrigated with Saline Saline -Foul Odor after Cleansing No No -Bioengineered Tissue No Yes -Type of Bioengineered Tissue Epifix 18mm Disc -Expiration Date 12/14/27 -Product Lot Number [id number] -Percent Used 100 -Bleeding Controlled with Pressure Pressure -Treatment Response Procedure Procedure Tolerated Well Tolerated Well -Debridement - Subq, 1st 20sq cm Yes No -Apply Skin Sub - 1st 25 sq cm - Legs 1 -Epifix 18mm Disc 3 Pain Scale: 0-10 Numeric Is Patient Pain Free? Yes Yes WC - Nurse 3 - General Ulcer D/C NN Start: 03/15/23 11:23 Freq: Status: Active Protocol: Activity Type Activity Date Activity User E-sign Co-sign Detail Recorded Client Recorded Date Recorded By Document 03/15/23 11:53 DL [id number] 03/15/23 11:55 DL Document 03/22/23 12:32 RB [id number] 03/22/23 12:32 RB Document 03/29/23 12:43 RB [id number] 03/29/23 12:44 RB 03/15/23 03/22/23 03/29/23 11:53 12:32 12:43 Wound Care Center Nurse 3 2-left guido -Ulcer Cleansing Rinsed/ Irrigated with Saline -Foul Odor after Cleansing No -Primary Dressing Applied Mepilex Border, Promogran -Primary Dressing Covered/Secured with Dry Gauze & Dry Gauze & Roll Gauze, Roll Gauze, Secured with Secured with Tape Tape -Other Covering tubigrip -Mepilex Border 1 -Promogran 1 Left -Tubular Bandage Single Layer Single Layer -Size of Tubigrip Used Size D Size D -Size D ($) 1 1 Treatment Response Procedure Procedure Tolerated Well Tolerated Well Pain Scale: 0-10 Numeric Is Patient Pain Free? Yes Yes Yes Teaching: Wound Center Dressing Your Wound -Person Taught Patient -Teaching Method Discussion, Demonstration -Response to teaching Verbalize understanding WC - Visit Discharge Discharge Condition Stable Stable Stable Ambulatory Status Ambulatory, Ambulatory, Ambulatory, Walker Walker Walker Transportation Private Auto Private Auto Private Auto Medication Reconcilliation completed & No No provided to patient/care provider Clinical Summary of Care Provided Yes Yes Facility Type Home Health Orders Sent Yes Assessment/Plan Assessment/Plan (1) Wound of left lower extremity: CODE(S): S81.802A - Unspecified open wound, left lower leg, initial encounter QUALIFIERS: Encounter type: subsequent encounter Qualified Code(s): S81.802D - Unspecified open wound, left lower leg, subsequent encounter (2) Peripheral vascular disease: CODE(S): I73.9 - Peripheral vascular disease, unspecified (3) Atherosclerotic vascular disease: CODE(S): I70.90 - Unspecified atherosclerosis (4) Essential (primary) hypertension: CODE(S): I10 - Essential (primary) hypertension (5) Non-healing wound of left lower extremity: CODE(S): S81.802A - Unspecified open wound, left lower leg, initial encounter (6) Venous insufficiency of both lower extremities: CODE(S): I87.2 - Venous insufficiency (chronic) (peripheral) (7) Ulcer of left guido with fat layer exposed: CODE(S): L97.822 - Non-pressure chronic ulcer of other part of left lower leg with fat layer exposed PLAN: Plan Debridement performed today in clinic as annotated above. At home wound-care instructions: Her wound is improving slowly. Epifix #2 applied today per pin machine tender guidelines and rehydrated with sterile saline and covered with wound veil and secured with steristrips. She will keep dressing dry and intact and change outer dressing of gauze as needed for soiling or if drainage comes through. Will have her wear tubigrip compression to both legs. She will change dressings every other day and wash with soap and water. Keep dressing clean and dry. Off-loading: The patient was instructed to avoid pressure and friction on the affected areas. Reposition every 2 hours at minimum. Avoid prolonged standing and/or dangling of legs. When seated, feet should be elevated at chest level. Frequent ambulation is encouraged. Diet: Patient encouraged to increase protein intake while taking caution to avoid high carbohydrate and/or sugar intake. Labs/cultures/imaging: Consider arterial testing if not progressing, given her history of vascular disease and monophasic pulses in her ankles/feet. Follow-up: Return in 1 week for wound care follow up. Return sooner or report to the emergency room should symptoms worsen, or new symptoms arise. Note: [employer] speech recognition accountant controller software was used to create portions of this document. Sound-alike and misspelled words, as well as other accountant controller errors may be contained in the documentation.
[2023-04-05 11:42] VITALS: BP 166/69; PULSE 57; RESP 18; TEMP 36.1; BMI 26.2
--- NOTE | 2023-04-05 14:14 | PN.PCM_ITS ---
History of Present Illness Date of Service: 04/05/23 Chief Complaint: nonhealing traumatic wound of left guido History of Wound: Ijeoma is an 83 yo female that presents for evaluation and treatment of a nonhealing traumatic wound of her left guido that occurred from a skin tear while she was playing with her dog. This occurred on January 04, 2023. She was seen in ER and treated for cellulitis and DVT. She has 3 days left of treatment of Augmentin. She is on Eliquis for treatment of the DVT. She has a h/o aortic aneurysm with repair and smoking history with mild COPD. She also has a h/o renal artery stenosis. She has been using Adaptic and nonadherent dressing and gauze to wound except when she was home and she left it open to air. She has pain and edema L leg. Does not wear compression typically. Has mild edema to right lower leg as well. She denies odor, erythema, fever, chills. Subjective Subjective Ijeoma returns today for follow up of a nonhealing wound of her left guido. She tolerated Epifix #2 application last week. She has minimal drainage. She denies any increased pain, odor, edema, erythema, fever or chills. Objective Data Objective Data Vital Signs: Vital Signs Temp Pulse Resp BP O2 Del Method 97 F L 57 L 18 166/69 H Room Air 04/05/23 11:42 04/05/23 11:42 04/05/23 11:42 04/05/23 11:42 04/05/23 11:42 Oxygen Delivery Method Room Air Weight: 69.4 kg Body Mass Index (BMI) 26.2 Physical Exam Const alert, oriented x3 and no apparent distress General Appearance: cooperative and comfortable HEENT normocephalic and head/scalp atraumatic Resp normal respiratory effort Effort and Inspection: able to speak in complete sentences Cardio regular rate and regular rhythm Skin Wounds: wounds noted Wound Narrative: as in clinical panel Psych mental status grossly normal, thought process normal, cooperative and affect normal Debridement Note Debridement Note Wound debrided: left guido Laterality: Left Type of Debridement: Excisional debridement Anesthesia Used: 4% Lidocaine Solution, 5% Lidocaine Gel and Cetacaine Depth: Down to and including healthy tissue and in the subcutaneous layer Percentage of wound debrided: 100 Instrument Used: 3mm curette Tissue Removed: Yellow slough, devitalized tissue Severity: Fat Layer Exposed Amount of bleeding with debridement: Mild Bleeding Controlled with: Compression and gauze Patient tolerated procedure: Patient tolerated procedure well Post-Debridement Measurements and Additional Note: Post-Debridement Measurements/Treatment - Nurse 1 - General Ulcer Assessment Start: 03/15/23 11:23 Freq: Status: Active Protocol: LOWEXGissel Activity Type Activity Date Activity User E-sign Co-sign Detail Recorded Client Recorded Date Recorded By Document 03/15/23 11:24 RB [id number] 03/15/23 11:25 RB Document 03/22/23 11:08 MT [id number] 03/22/23 11:15 MT Edit Result 03/22/23 11:08 MT (1) [id number] 03/22/23 11:18 MT Document 03/29/23 12:11 RB [id number] 03/29/23 12:13 RB Document 04/05/23 11:42 MT Desktop 04/05/23 11:51 MT (1) Pulse Rate (60-100) => 59 L Blood Pressure (90/60-120/80) => 139/65 H Blood Pressure Mean (mm Hg) => 89 03/15/23 03/22/23 03/29/23 11:24 11:08 12:11 - Today's Visit Information Type of service Follow-up Visit Follow-up Visit Follow-up Visit (Physician/SLITTING MACHINE OPERATOR (Physician/SLITTING MACHINE OPERATOR (Physician/SLITTING MACHINE OPERATOR ) ) ) Arrival Mode Ambulatory Ambulatory Ambulatory Transfer Assistance None None Accompanied by self Patient Identification Verified (Name & Yes Yes Yes ) Patient Requires Transmission-Based No No Precautions Safety Precautions Fall Prevention Height and Weight Body Mass Index (BMI) 26.2 26.2 26.2 BMI Classification Overweight Overweight Overweight Vital Signs Temperature (97.8 F-99.1 F) 96.6 F L 96 F L 96.3 F L Temperature Source Temporal Temporal Temporal Pulse Rate (60-100) 72 59 L 61 Pulse Location Monitor Monitor Monitor Respiratory Rate (12-18) 18 18 18 Respiratory rate source Observation Observation Observation Oxygen Delivery Method Room Air Blood Pressure (90/60-120/80) 111/56 L 139/65 H 161/72 H Blood Pressure Mean (mm Hg) 74 89 101 Source Monitor Monitor Monitor Position Semi-Fowlers Sitting Semi-Fowlers Blood Pressure Location Left Arm Right Arm Left Arm History Since Last Visit- (Skip if this is Patient's initial visit) Have you changed medications since your No No last visit? Any new allergies or adverse reactions No No Had a fall/change in ADL's that may No No increase risk of falls Signs or symptoms of abuse and/or No No neglect since last visit Have you been in the hospital since your No No last visit? Has dressing in place as prescribed Yes Yes Yes Has compression in place as prescribed Yes N/A Yes Has offloadiing in place as prescribed No N/A No Experienced any changes in pain level or No No No management Left Footwear Regular Shoe Right Footwear Regular Shoe Pain Scale: 0-10 Numeric Is Patient Pain Free? Yes Yes Yes 04/05/23 11:42 WC - Today's Visit Information Type of service Follow-up Visit (Physician/SLITTING MACHINE OPERATOR ) Arrival Mode Ambulatory, Walker Transfer Assistance Accompanied by self Patient Identification Verified (Name & Yes ) Patient Requires Transmission-Based Precautions Safety Precautions Fall Prevention Height and Weight Body Mass Index (BMI) 26.2 BMI Classification Overweight Vital Signs Temperature (97.8 F-99.1 F) 97 F L Temperature Source Temporal Pulse Rate (60-100) 57 L Pulse Location Monitor Respiratory Rate (12-18) 18 Respiratory rate source Observation Oxygen Delivery Method Room Air Blood Pressure (90/60-120/80) 166/69 H Blood Pressure Mean (mm Hg) 101 Source Monitor Position Sitting Blood Pressure Location Left Arm History Since Last Visit- (Skip if this is Patient's initial visit) Have you changed medications since your last visit? Any new allergies or adverse reactions Had a fall/change in ADL's that may increase risk of falls Signs or symptoms of abuse and/or neglect since last visit Have you been in the hospital since your last visit? Has dressing in place as prescribed Has compression in place as prescribed Yes Has offloadiing in place as prescribed Yes Experienced any changes in pain level or No management Left Footwear Regular Shoe Right Footwear Regular Shoe Pain Scale: 0-10 Numeric Is Patient Pain Free? Yes - Nurse 1 - General Ulcer Measurement Start: 03/15/23 11:23 Freq: Status: Active Protocol: Activity Type Activity Date Activity User E-sign Co-sign Detail Recorded Client Recorded Date Recorded By Document 03/15/23 11:24 [id number] 03/15/23 11:25 RB Document 03/22/23 11:08 ND [id number] 03/22/23 11:15 ND Document 03/29/23 12:11 [id number] 03/29/23 12:13 RB Document 04/05/23 11:42 ND Desktop 04/05/23 11:51 ND 03/15/23 03/22/23 03/29/23 11:24 11:08 12:11 Wound Center Nurse 1 2-left guido -Combined with other wound No No -Current Size (cm) - Length 2.2 1.9 1.7 -Current Size (cm) - Width 1.2 1.4 1.1 -Current Size (cm) - Depth 0.2 0.1 0.1 -Total Square Cm 2.64 2.66 1.87 -Photo Taken Yes Yes -Tunneling No No -Undermining/Tunneling No No -Circular Undermining No No -Exudate Amt Medium Small Medium -Exudate Type Serosanguineous Serous Serosanguineous -Wound Margin Distinct, Flat & Intact Distinct, Outline Outline Attached Attached -Granulation Amt Medium (34-66%) Small (1-33%) Medium (34-66%) -Granulation Quality Crewe Pale Crewe -Slough/Fibrin Yes -Necrosis Amt Medium (34-66%) Large (67-100%) Medium (34-66%) -Necrotic Tissue Type Adherent Slough Adherent Slough Adherent Slough -Structure Exposed N/A N/A -Texture (Kaitlin-wound Skin Appearance) Assessed, Assessed Assessed Scarring -Moisture (Kaitlin-wound Skin Appearance) Assessed Assessed Assessed -Color (Kaitlin-wound Skin Appearance) Assessed Assessed Assessed -Temperature (Kaitlin-wound Skin No Abnormality No Abnormality No Abnormality Appearance) (Pt Warm) (Pt Warm) (Pt Warm) -Tenderness on Palpation (Kaitlin-wound No No No Skin Appearance) -Ulcer Cleansing Wound Cleanser Wound Cleanser Wound Cleanser -Foul Odor after Cleansing No No No -Anesthetic Used 5% Lidocaine 5% Lidocaine 5% Lidocaine Gel Gel Gel Lower Limb Edema Present Yes Yes Yes Left Calf (cm) 29.2 29.2 30.7 Left Ankle (cm) 19.5 19.5 21.7 09/22/23 11:42 Wound Center Nurse 1 2-left guido -Combined with other wound -Current Size (cm) - Length 1.6 -Current Size (cm) - Width 1.0 -Current Size (cm) - Depth 0.1 -Total Square Cm 1.60 -Photo Taken -Tunneling -Undermining/Tunneling -Circular Undermining -Exudate Amt Small -Exudate Type Serous -Wound Margin Flat & Intact -Granulation Amt Medium (34-66%) -Granulation Quality Pale,Crewe -Slough/Fibrin -Necrosis Amt Medium (34-66%) -Necrotic Tissue Type Adherent Slough -Structure Exposed -Texture (Kaitlin-wound Skin Appearance) Assessed -Moisture (Kaitlin-wound Skin Appearance) Assessed -Color (Kaitlin-wound Skin Appearance) Assessed -Temperature (Kaitlin-wound Skin Appearance) -Tenderness on Palpation (Kaitlin-wound No Skin Appearance) -Ulcer Cleansing Soap and Water -Foul Odor after Cleansing No -Anesthetic Used 5% Lidocaine Gel Lower Limb Edema Present Yes Left Calf (cm) 30.7 Left Ankle (cm) 21.7 WC - Nurse 2 - General Ulcer CM Notes Start: 03/15/23 11:23 Freq: Status: Active Protocol: Activity Type Activity Date Activity User E-sign Co-sign Detail Recorded Client Recorded Date Recorded By Document 03/15/23 13:26 PL [id number] 03/15/23 13:27 PL Document 03/22/23 12:47 PL [id number] 03/22/23 12:48 PL Document 03/29/23 13:49 PL [id number] 03/29/23 13:50 PL Edit Result 03/29/23 13:49 PL (1) [id number] 03/29/23 13:51 PL Document 04/05/23 13:14 PL [id number] 04/05/23 13:15 PL (1) 2-left guido - Bioengineered Tissue No => Yes - Type of Bioengineered Tissue => Epifix 18mm Disc - Expiration Date => 12/14/27 - Product Lot Number => [id number] - Percent Used => 100 - Debridement - Subq, 1st 20sq cm Yes => No - Apply Skin Sub - 1st 25 sq cm - Legs => 1 - Epifix 18mm Disc => 3 03/15/23 03/22/23 03/29/23 13:26 12:47 13:49 Wound Center Nurse 2 2-left guido -Time 11:38 12:13 12:23 -Correct Patient Yes Yes Yes -Correct Side, Site, Position Yes Yes Yes -Correct Procedure Yes Yes Yes -Procedure Performed Yes Yes Yes -Type of Procedure Debridement Debridement Debridement -Clinical Debridement Subcutaneous Subcutaneous Subcutaneous -Tissue Removed Subcutaneous Subcutaneous Subcutaneous -Post Debridement (cm) - Length 2.0 1.7 1.0 -Post Debridement (cm) - Width 1.3 1.8 0.5 -Post Debridement (cm) - Depth 0.2 0.2 0.2 -Total Square (Post) (cm) 2.60 3.06 0.50 -Area of Debridement (cm) - Length 2.0 1.7 1.0 -Area of Debridement (cm) - Width 1.3 1.8 0.5 -Total Square (Area) (cm) 2.60 3.06 0.50 -Tunneling No No No -Undermining/Tunneling No No No -Circular Undermining No No No -Wound/Ulcer Outcome Not Healed Not Healed Not Healed -Ulcer Cleansing Rinsed/ Rinsed/ Rinsed/ Irrigated with Irrigated with Irrigated with Saline Saline Saline -Foul Odor after Cleansing No No No -Bioengineered Tissue No Yes Yes -Type of Bioengineered Tissue Epifix 18mm Epifix 18mm Disc Disc -Expiration Date 12/14/27 12/14/27 -Product Lot Number [id number] -Percent Used 100 100 -Bleeding Controlled with Pressure Pressure Pressure -Treatment Response Procedure Procedure Procedure Tolerated Well Tolerated Well Tolerated Well -Debridement - Subq, 1st 20sq cm Yes No No -Apply Skin Sub - 1st 25 sq cm - Legs 1 1 -Epifix 18mm Disc 3 3 Pain Scale: 0-10 Numeric Is Patient Pain Free? Yes Yes Yes 04/05/23 13:14 Wound Center Nurse 2 2-left guido -Time 11:56 -Correct Patient Yes -Correct Side, Site, Position Yes -Correct Procedure Yes -Procedure Performed Yes -Type of Procedure Debridement -Clinical Debridement Subcutaneous -Tissue Removed Subcutaneous -Post Debridement (cm) - Length 0.7 -Post Debridement (cm) - Width 0.5 -Post Debridement (cm) - Depth 0.1 -Total Square (Post) (cm) 0.35 -Area of Debridement (cm) - Length 0.7 -Area of Debridement (cm) - Width 0.5 -Total Square (Area) (cm) 0.35 -Tunneling No -Undermining/Tunneling No -Circular Undermining No -Wound/Ulcer Outcome Not Healed -Ulcer Cleansing Rinsed/ Irrigated with Saline -Foul Odor after Cleansing No -Bioengineered Tissue Yes -Type of Bioengineered Tissue Epifix 18mm Disc -Expiration Date 12/14/27 -Product Lot Number [id number] -Percent Used 100 -Bleeding Controlled with Pressure -Treatment Response Procedure Tolerated Well -Debridement - Subq, 1st 20sq cm No -Apply Skin Sub - 1st 25 sq cm - Legs 1 -Epifix 18mm Disc 3 Pain Scale: 0-10 Numeric Is Patient Pain Free? Yes WC - Nurse 3 - General Ulcer D/C NN Start: 03/15/23 11:23 Freq: Status: Active Protocol: Activity Type Activity Date Activity User E-sign Co-sign Detail Recorded Client Recorded Date Recorded By Document 03/15/23 11:53 DL [id number] 03/15/23 11:55 DL Document 03/22/23 12:32 RB [id number] 03/22/23 12:32 RB Document 03/29/23 12:43 RB [id number] 03/29/23 12:44 RB Document 04/05/23 12:30 RB Desktop 04/05/23 12:31 RB 03/15/23 03/22/23 03/29/23 11:53 12:32 12:43 Wound Care Center Nurse 3 2-left guido -Ulcer Cleansing Rinsed/ Irrigated with Saline -Foul Odor after Cleansing No -Primary Dressing Applied Mepilex Border, Promogran -Primary Dressing Covered/Secured with Dry Gauze & Dry Gauze & Roll Gauze, Roll Gauze, Secured with Secured with Tape Tape -Other Covering tubigrip -Mepilex Border 1 -Promogran 1 Left -Tubular Bandage Single Layer Single Layer -Size of Tubigrip Used Size D Size D -Size C ($) -Size D ($) 1 1 Treatment Response Procedure Procedure Tolerated Well Tolerated Well Pain Scale: 0-10 Numeric Is Patient Pain Free? Yes Yes Yes Teaching: Wound Center Dressing Your Wound -Person Taught Patient -Teaching Method Discussion, Demonstration -Response to teaching Verbalize understanding WC - Visit Discharge Discharge Condition Stable Stable Stable Ambulatory Status Ambulatory, Ambulatory, Ambulatory, Walker Walker Walker Transportation Private Auto Private Auto Private Auto Medication Reconcilliation completed & No No provided to patient/care provider Clinical Summary of Care Provided Yes Yes Facility Type Home Health Orders Sent Yes 04/05/23 12:30 Wound Care Center Nurse 3 2-left guido -Ulcer Cleansing -Foul Odor after Cleansing -Primary Dressing Applied -Primary Dressing Covered/Secured with Dry Gauze,Dry Gauze & Roll Gauze,Secured with Tape -Other Covering -Mepilex Border -Promogran Left -Tubular Bandage Single Layer -Size of Tubigrip Used Size C -Size C ($) 1 -Size D ($) Treatment Response Procedure Tolerated Well Pain Scale: 0-10 Numeric Is Patient Pain Free? Yes Teaching: Wound Center Dressing Your Wound -Person Taught Patient -Teaching Method Discussion, Demonstration -Response to teaching Verbalize understanding WC - Visit Discharge Discharge Condition Stable Ambulatory Status Ambulatory, Walker Transportation Medication Reconcilliation completed & No provided to patient/care provider Clinical Summary of Care Provided Yes Facility Type Orders Sent Assessment/Plan Assessment/Plan (1) Wound of left lower extremity: CODE(S): S81.802A - Unspecified open wound, left lower leg, initial encounter QUALIFIERS: Encounter type: subsequent encounter Qualified Code(s): S81.802D - Unspecified open wound, left lower leg, subsequent encounter (2) Peripheral vascular disease: CODE(S): I73.9 - Peripheral vascular disease, unspecified (3) Atherosclerotic vascular disease: CODE(S): I70.90 - Unspecified atherosclerosis (4) Essential (primary) hypertension: CODE(S): I10 - Essential (primary) hypertension (5) Non-healing wound of left lower extremity: CODE(S): S81.802A - Unspecified open wound, left lower leg, initial encounter (6) Venous insufficiency of both lower extremities: CODE(S): I87.2 - Venous insufficiency (chronic) (peripheral) (7) Ulcer of left guido with fat layer exposed: CODE(S): L97.822 - Non-pressure chronic ulcer of other part of left lower leg with fat layer exposed PLAN: Plan Debridement performed today in clinic as annotated above. At home wound-care instructions: Her wound is improving slowly. Epifix #3 applied today per landfill gas collection system operator guidelines and rehydrated with sterile saline and covered with wound veil and secured with steristrips. She will keep dressing dry and intact and change outer dressing of gauze as needed for soiling or if drainage comes through. Will have her wear tubigrip compression to both legs. She will change dressings every other day and wash with soap and water. Keep dressing clean and dry. Off-loading: The patient was instructed to avoid pressure and friction on the affected areas. Reposition every 2 hours at minimum. Avoid prolonged standing and/or dangling of legs. When seated, feet should be elevated at chest level. Frequent ambulation is encouraged. Diet: Patient encouraged to increase protein intake while taking caution to avoid high carbohydrate and/or sugar intake. Labs/cultures/imaging: Consider arterial testing if not progressing, given her history of vascular disease and monophasic pulses in her ankles/feet. Follow-up: Return in 1 week for wound care follow up. Return sooner or report to the emergency room should symptoms worsen, or new symptoms arise. Note: [facility] [employer] speech recognition wire bound box machine operator software was used to create portions of this document. Sound-alike and misspelled words, as well as other wire bound box machine operator errors may be contained in the documentation.
[2023-04-12 11:14] VITALS: BP 168/67; PULSE 61; RESP 18; TEMP 36.3; BMI 26.2
--- NOTE | 2023-04-12 12:56 | PN.PCM_ITS ---
History of Present Illness Date of Service: 04/12/23 Chief Complaint: nonhealing traumatic wound of left guido History of Wound: Ijeoma is an 83 yo female that presents for evaluation and treatment of a nonhealing traumatic wound of her left guido that occurred from a skin tear while she was playing with her dog. This occurred on January 04, 2023. She was seen in ER and treated for cellulitis and DVT. She has 3 days left of treatment of Augmentin. She is on Eliquis for treatment of the DVT. She has a h/o aortic aneurysm with repair and smoking history with mild COPD. She also has a h/o renal artery stenosis. She has been using Adaptic and nonadherent dressing and gauze to wound except when she was home and she left it open to air. She has pain and edema L leg. Does not wear compression typically. Has mild edema to right lower leg as well. She denies odor, erythema, fever, chills. Subjective Subjective Ijeoma returns today for follow up of a nonhealing wound of her left guido. She tolerated Epifix #3 application last week. She has minimal drainage. She denies any increased pain, odor, edema, erythema, fever or chills. Objective Data Objective Data Vital Signs: Vital Signs Temp Pulse Resp BP O2 Del Method 97.3 F L 61 18 168/67 H Room Air 04/12/23 11:14 04/12/23 11:14 04/12/23 11:14 04/12/23 11:14 04/05/23 11:42 Oxygen Delivery Method Room Air Weight: 69.4 kg Body Mass Index (BMI) 26.2 Physical Exam Const alert, oriented x3 and no apparent distress General Appearance: cooperative and comfortable HEENT normocephalic and head/scalp atraumatic Resp normal respiratory effort Effort and Inspection: able to speak in complete sentences Cardio regular rate and regular rhythm Skin Wounds: wounds noted Wound Narrative: as in clinical panel Psych mental status grossly normal, thought process normal, cooperative and affect normal Debridement Note Debridement Note Wound debrided: left guido Laterality: Left Type of Debridement: Excisional debridement Anesthesia Used: 4% Lidocaine Solution, 5% Lidocaine Gel and Cetacaine Depth: Down to and including healthy tissue and in the subcutaneous layer Percentage of wound debrided: 100 Instrument Used: 3mm curette Tissue Removed: Yellow slough, devitalized tissue Severity: Fat Layer Exposed Amount of bleeding with debridement: Mild Bleeding Controlled with: Compression and gauze Patient tolerated procedure: Patient tolerated procedure well Post-Debridement Measurements and Additional Note: Post-Debridement Measurements/Treatment - Nurse 1 - General Ulcer Assessment Start: 03/15/23 11:23 Freq: Status: Active Protocol: STANLEY Activity Type Activity Date Activity User E-sign Co-sign Detail Recorded Client Recorded Date Recorded By Document 03/15/23 11:24 RB [id number] 03/15/23 11:25 RB Document 03/22/23 11:08 MT [id number] 03/22/23 11:15 MT Edit Result 03/22/23 11:08 MT (1) [id number] 03/22/23 11:18 MT Document 03/29/23 12:11 RB [id number] 03/29/23 12:13 RB Document 04/05/23 11:42 MT Desktop 04/05/23 11:51 MT Document 04/12/23 11:14 RB Desktop 04/12/23 11:18 RB (1) Pulse Rate (60-100) => 59 L Blood Pressure (90/60-120/80) => 139/65 H Blood Pressure Mean (mm Hg) => 89 03/15/23 03/22/23 03/29/23 11:24 11:08 12:11 - Today's Visit Information Type of service Follow-up Visit Follow-up Visit Follow-up Visit (Physician/SOURCE WATER PROTECTION SPECIALIST (Physician/SOURCE WATER PROTECTION SPECIALIST (Physician/SOURCE WATER PROTECTION SPECIALIST ) ) ) Arrival Mode Ambulatory Ambulatory Ambulatory Transfer Assistance None None Accompanied by self Patient Identification Verified (Name & Yes Yes Yes ) Patient Requires Transmission-Based No No Precautions Safety Precautions Fall Prevention Height and Weight Body Mass Index (BMI) 26.2 26.2 26.2 BMI Classification Overweight Overweight Overweight Vital Signs Temperature (97.8 F-99.1 F) 96.6 F L 96 F L 96.3 F L Temperature Source Temporal Temporal Temporal Pulse Rate (60-100) 72 59 L 61 Pulse Location Monitor Monitor Monitor Respiratory Rate (12-18) 18 18 18 Respiratory rate source Observation Observation Observation Oxygen Delivery Method Room Air Blood Pressure (90/60-120/80) 111/56 L 139/65 H 161/72 H Blood Pressure Mean (mm Hg) 74 89 101 Source Monitor Monitor Monitor Position Semi-Fowlers Sitting Semi-Fowlers Blood Pressure Location Left Arm Right Arm Left Arm History Since Last Visit- (Skip if this is Patient's initial visit) Have you changed medications since your No No last visit? Any new allergies or adverse reactions No No Had a fall/change in ADL's that may No No increase risk of falls Signs or symptoms of abuse and/or No No neglect since last visit Have you been in the hospital since your No No last visit? Has dressing in place as prescribed Yes Yes Yes Has compression in place as prescribed Yes N/A Yes Has offloadiing in place as prescribed No N/A No Experienced any changes in pain level or No No No management Left Footwear Regular Shoe Right Footwear Regular Shoe Pain Scale: 0-10 Numeric Is Patient Pain Free? Yes Yes Yes 04/05/23 04/12/23 11:42 11:14 WC - Today's Visit Information Type of service Follow-up Visit Follow-up Visit (Physician/SOURCE WATER PROTECTION SPECIALIST (Physician/SOURCE WATER PROTECTION SPECIALIST ) ) Arrival Mode Ambulatory, Ambulatory Walker Transfer Assistance None Accompanied by self Patient Identification Verified (Name & Yes Yes ) Patient Requires Transmission-Based No Precautions Safety Precautions Fall Prevention Height and Weight Body Mass Index (BMI) 26.2 26.2 BMI Classification Overweight Overweight Vital Signs Temperature (97.8 F-99.1 F) 97 F L 97.3 F L Temperature Source Temporal Temporal Pulse Rate (60-100) 57 L 61 Pulse Location Monitor Monitor Respiratory Rate (12-18) 18 18 Respiratory rate source Observation Observation Oxygen Delivery Method Room Air Blood Pressure (90/60-120/80) 166/69 H 168/67 H Blood Pressure Mean (mm Hg) 101 100 Source Monitor Monitor Position Sitting Semi-Fowlers Blood Pressure Location Left Arm Left Arm History Since Last Visit- (Skip if this is Patient's initial visit) Have you changed medications since your No last visit? Any new allergies or adverse reactions No Had a fall/change in ADL's that may No increase risk of falls Signs or symptoms of abuse and/or No neglect since last visit Have you been in the hospital since your No last visit? Has dressing in place as prescribed Yes Has compression in place as prescribed Yes Yes Has offloadiing in place as prescribed Yes No Experienced any changes in pain level or No No management Left Footwear Regular Shoe Right Footwear Regular Shoe Pain Scale: 0-10 Numeric Is Patient Pain Free? Yes Yes WC - Nurse 1 - General Ulcer Measurement Start: 03/15/23 11:23 Freq: Status: Active Protocol: Activity Type Activity Date Activity User E-sign Co-sign Detail Recorded Client Recorded Date Recorded By Document 03/15/23 11:24 RB [id number] 03/15/23 11:25 RB Document 03/22/23 11:08 WY [id number] 03/22/23 11:15 MT Document 03/29/23 12:11 RB [id number] 03/29/23 12:13 RB Document 04/05/23 11:42 MT Desktop 04/05/23 11:51 MT Document 04/12/23 11:14 RB Desktop 04/12/23 11:18 RB 03/15/23 03/22/23 03/29/23 11:24 11:08 12:11 Wound Center Nurse 1 2-left guido -Combined with other wound No No -Current Size (cm) - Length 2.2 1.9 1.7 -Current Size (cm) - Width 1.2 1.4 1.1 -Current Size (cm) - Depth 0.2 0.1 0.1 -Total Square Cm 2.64 2.66 1.87 -Photo Taken Yes Yes -Tunneling No No -Undermining/Tunneling No No -Circular Undermining No No -Exudate Amt Medium Small Medium -Exudate Type Serosanguineous Serous Serosanguineous -Wound Margin Distinct, Flat & Intact Distinct, Outline Outline Attached Attached -Granulation Amt Medium (34-66%) Small (1-33%) Medium (34-66%) -Granulation Quality Nowthen Pale Nowthen -Slough/Fibrin Yes -Necrosis Amt Medium (34-66%) Large (67-100%) Medium (34-66%) -Necrotic Tissue Type Adherent Slough Adherent Slough Adherent Slough -Structure Exposed N/A N/A -Texture (Kaitlin-wound Skin Appearance) Assessed, Assessed Assessed Scarring -Moisture (Kaitlin-wound Skin Appearance) Assessed Assessed Assessed -Color (Kaitlin-wound Skin Appearance) Assessed Assessed Assessed -Temperature (Kaitlin-wound Skin No Abnormality No Abnormality No Abnormality Appearance) (Pt Warm) (Pt Warm) (Pt Warm) -Tenderness on Palpation (Kaitlin-wound No No No Skin Appearance) -Ulcer Cleansing Wound Cleanser Wound Cleanser Wound Cleanser -Foul Odor after Cleansing No No No -Anesthetic Used 5% Lidocaine 5% Lidocaine 5% Lidocaine Gel Gel Gel Lower Limb Edema Present Yes Yes Yes Left Calf (cm) 29.2 29.2 30.7 Left Ankle (cm) 19.5 19.5 21.7 04/05/23 04/12/23 11:42 11:14 Wound Center Nurse 1 2-left guido -Combined with other wound No -Current Size (cm) - Length 1.6 0.7 -Current Size (cm) - Width 1.0 0.5 -Current Size (cm) - Depth 0.1 0.1 -Total Square Cm 1.60 0.35 -Photo Taken Yes -Tunneling No -Undermining/Tunneling No -Circular Undermining No -Exudate Amt Small Medium -Exudate Type Serous Serosanguineous -Wound Margin Flat & Intact Distinct, Outline Attached -Granulation Amt Medium (34-66%) Medium (34-66%) -Granulation Quality Pale,Nowthen Nowthen -Slough/Fibrin Yes -Necrosis Amt Medium (34-66%) Medium (34-66%) -Necrotic Tissue Type Adherent Slough Adherent Slough -Structure Exposed N/A -Texture (Kaitlin-wound Skin Appearance) Assessed Assessed -Moisture (Kaitlin-wound Skin Appearance) Assessed Assessed -Color (Kaitlin-wound Skin Appearance) Assessed Assessed -Temperature (Kaitlin-wound Skin No Abnormality Appearance) (Pt Warm) -Tenderness on Palpation (Kaitlin-wound No No Skin Appearance) -Ulcer Cleansing Soap and Water Wound Cleanser -Foul Odor after Cleansing No No -Anesthetic Used 5% Lidocaine 5% Lidocaine Gel Gel Lower Limb Edema Present Yes Yes Left Calf (cm) 30.7 30 Left Ankle (cm) 21.7 20.5 WC - Nurse 2 - General Ulcer CM Notes Start: 03/15/23 11:23 Freq: Status: Active Protocol: Activity Type Activity Date Activity User E-sign Co-sign Detail Recorded Client Recorded Date Recorded By Document 03/15/23 13:26 PL [id number] 03/15/23 13:27 PL Document 03/22/23 12:47 PL [id number] 03/22/23 12:48 PL Document 03/29/23 13:49 PL [id number] 03/29/23 13:50 PL Edit Result 03/29/23 13:49 PL (1) [id number] 03/29/23 13:51 PL Document 04/05/23 13:14 PL [id number] 04/05/23 13:15 PL Document 04/12/23 12:41 GM [id number] 04/12/23 12:43 GM Edit Result 04/12/23 12:41 GM (2) [id number] 04/12/23 12:44 GM (1) 2-left guido - Bioengineered Tissue No => Yes - Type of Bioengineered Tissue => Epifix 18mm Disc - Expiration Date => 12/14/27 - Product Lot Number => [id number] - Percent Used => 100 - Debridement - Subq, 1st 20sq cm Yes => No - Apply Skin Sub - 1st 25 sq cm - Legs => 1 - Epifix 18mm Disc => 3 (2) 2-left guido - Expiration Date => 12/14/27 - Product Lot Number => [id number] - Percent Used => 100 - Lot number of Saline Used => [id number] 03/15/23 03/22/23 03/29/23 13:26 12:47 13:49 Wound Center Nurse 2 2-left guido -Time 11:38 12:13 12:23 -Correct Patient Yes Yes Yes -Correct Side, Site, Position Yes Yes Yes -Correct Procedure Yes Yes Yes -Procedure Performed Yes Yes Yes -Type of Procedure Debridement Debridement Debridement -Clinical Debridement Subcutaneous Subcutaneous Subcutaneous -Tissue Removed Subcutaneous Subcutaneous Subcutaneous -Post Debridement (cm) - Length 2.0 1.7 1.0 -Post Debridement (cm) - Width 1.3 1.8 0.5 -Post Debridement (cm) - Depth 0.2 0.2 0.2 -Total Square (Post) (cm) 2.60 3.06 0.50 -Area of Debridement (cm) - Length 2.0 1.7 1.0 -Area of Debridement (cm) - Width 1.3 1.8 0.5 -Total Square (Area) (cm) 2.60 3.06 0.50 -Tunneling No No No -Undermining/Tunneling No No No -Circular Undermining No No No -Wound/Ulcer Outcome Not Healed Not Healed Not Healed -Ulcer Cleansing Rinsed/ Rinsed/ Rinsed/ Irrigated with Irrigated with Irrigated with Saline Saline Saline -Foul Odor after Cleansing No No No -Bioengineered Tissue No Yes Yes -Type of Bioengineered Tissue Epifix 18mm Epifix 18mm Disc Disc -Expiration Date 12/14/27 12/14/27 -Product Lot Number [id number] -Percent Used 100 100 -Lot number of Saline Used -Bleeding Controlled with Pressure Pressure Pressure -Treatment Response Procedure Procedure Procedure Tolerated Well Tolerated Well Tolerated Well -Debridement - Subq, 1st 20sq cm Yes No No -Apply Skin Sub - 1st 25 sq cm - Legs 1 1 -Epifix 18mm Disc 3 3 Pain Scale: 0-10 Numeric Is Patient Pain Free? Yes Yes Yes 04/05/23 04/12/23 13:14 12:41 Wound Center Nurse 2 2-left guido -Time 11:56 11:30 -Correct Patient Yes Yes -Correct Side, Site, Position Yes Yes -Correct Procedure Yes Yes -Procedure Performed Yes Yes -Type of Procedure Debridement Debridement -Clinical Debridement Subcutaneous Subcutaneous -Tissue Removed Subcutaneous Subcutaneous -Post Debridement (cm) - Length 0.7 0.5 -Post Debridement (cm) - Width 0.5 0.2 -Post Debridement (cm) - Depth 0.1 0.1 -Total Square (Post) (cm) 0.35 0.10 -Area of Debridement (cm) - Length 0.7 0.5 -Area of Debridement (cm) - Width 0.5 0.2 -Total Square (Area) (cm) 0.35 0.10 -Tunneling No No -Undermining/Tunneling No No -Circular Undermining No No -Wound/Ulcer Outcome Not Healed Not Healed -Ulcer Cleansing Rinsed/ Rinsed/ Irrigated with Irrigated with Saline Saline -Foul Odor after Cleansing No No -Bioengineered Tissue Yes Yes -Type of Bioengineered Tissue Epifix 18mm Epifix 18mm Disc Disc -Expiration Date 12/14/27 12/14/27 -Product Lot Number [id number] -Percent Used 100 100 -Lot number of Saline Used [id number] -Bleeding Controlled with Pressure Pressure -Treatment Response Procedure Procedure Tolerated Well Tolerated Well -Debridement - Subq, 1st 20sq cm No No -Apply Skin Sub - 1st 25 sq cm - Legs 1 1 -Epifix 18mm Disc 3 3 Pain Scale: 0-10 Numeric Is Patient Pain Free? Yes Yes - Nurse 3 - General Ulcer D/C NN Start: 03/15/23 11:23 Freq: Status: Active Protocol: Activity Type Activity Date Activity User E-sign Co-sign Detail Recorded Client Recorded Date Recorded By Document 03/15/23 11:53 DL [id number] 03/15/23 11:55 DL Document 03/22/23 12:32 RB [id number] 03/22/23 12:32 RB Document 03/29/23 12:43 RB [id number] 03/29/23 12:44 RB Document 04/05/23 12:30 RB Desktop 04/05/23 12:31 RB 03/15/23 03/22/23 03/29/23 11:53 12:32 12:43 Wound Care Center Nurse 3 2-left guido -Ulcer Cleansing Rinsed/ Irrigated with Saline -Foul Odor after Cleansing No -Primary Dressing Applied Mepilex Border, Promogran -Primary Dressing Covered/Secured with Dry Gauze & Dry Gauze & Roll Gauze, Roll Gauze, Secured with Secured with Tape Tape -Other Covering tubigrip -Mepilex Border 1 -Promogran 1 Left -Tubular Bandage Single Layer Single Layer -Size of Tubigrip Used Size D Size D -Size C ($) -Size D ($) 1 1 Treatment Response Procedure Procedure Tolerated Well Tolerated Well Pain Scale: 0-10 Numeric Is Patient Pain Free? Yes Yes Yes Teaching: Wound Center Dressing Your Wound -Person Taught Patient -Teaching Method Discussion, Demonstration -Response to teaching Verbalize understanding WC - Visit Discharge Discharge Condition Stable Stable Stable Ambulatory Status Ambulatory, Ambulatory, Ambulatory, Walker Walker Walker Transportation Private Auto Private Auto Private Auto Medication Reconcilliation completed & No No provided to patient/care provider Clinical Summary of Care Provided Yes Yes Facility Type Home Health Orders Sent Yes 04/05/23 12:30 Wound Care Center Nurse 3 2-left guido -Ulcer Cleansing -Foul Odor after Cleansing -Primary Dressing Applied -Primary Dressing Covered/Secured with Dry Gauze,Dry Gauze & Roll Gauze,Secured with Tape -Other Covering -Mepilex Border -Promogran Left -Tubular Bandage Single Layer -Size of Tubigrip Used Size C -Size C ($) 1 -Size D ($) Treatment Response Procedure Tolerated Well Pain Scale: 0-10 Numeric Is Patient Pain Free? Yes Teaching: Wound Center Dressing Your Wound -Person Taught Patient -Teaching Method Discussion, Demonstration -Response to teaching Verbalize understanding WC - Visit Discharge Discharge Condition Stable Ambulatory Status Ambulatory, Walker Transportation Medication Reconcilliation completed & No provided to patient/care provider Clinical Summary of Care Provided Yes Facility Type Orders Sent Assessment/Plan Assessment/Plan (1) Wound of left lower extremity: CODE(S): S81.802A - Unspecified open wound, left lower leg, initial encounter QUALIFIERS: Encounter type: subsequent encounter Qualified Code(s): S81.802D - Unspecified open wound, left lower leg, subsequent encounter (2) Peripheral vascular disease: CODE(S): I73.9 - Peripheral vascular disease, unspecified (3) Atherosclerotic vascular disease: CODE(S): I70.90 - Unspecified atherosclerosis (4) Essential (primary) hypertension: CODE(S): I10 - Essential (primary) hypertension (5) Non-healing wound of left lower extremity: CODE(S): S81.802A - Unspecified open wound, left lower leg, initial encounter (6) Venous insufficiency of both lower extremities: CODE(S): I87.2 - Venous insufficiency (chronic) (peripheral) (7) Ulcer of left guido with fat layer exposed: CODE(S): L97.822 - Non-pressure chronic ulcer of other part of left lower leg with fat layer exposed PLAN: Plan Debridement performed today in clinic as annotated above. At home wound-care instructions: Her wound is improving slowly. Epifix #4 applied today per dye and chemical coordinator guidelines and rehydrated with sterile saline and covered with wound veil and secured with steristrips. She will keep dressing dry and intact and change outer dressing of gauze Saturday and Saturday and apply hydrogel over wound veil. Will have her wear tubigrip compression to both legs. Keep dressing clean and dry. Off-loading: The patient was instructed to avoid pressure and friction on the affected areas. Reposition every 2 hours at minimum. Avoid prolonged standing and/or dangling of legs. When seated, feet should be elevated at chest level. Frequent ambulation is encouraged. Diet: Patient encouraged to increase protein intake while taking caution to avoid high carbohydrate and/or sugar intake. Labs/cultures/imaging: Consider arterial testing if not progressing, given her history of vascular disease and monophasic pulses in her ankles/feet. Follow-up: Return in 1 week for wound care follow up. Return sooner or report to the emergency room should symptoms worsen, or new symptoms arise. Note: [employer] speech recognition word processing machine operator software was used to create portions of this document. Sound-alike and misspelled words, as well as other word processing machine operator errors may be contained in the documentation.
== END 2023-04-13 23:59 | disposition home or self-care (01) ==
LOC: WC 10:15
PROVIDERS: PCP Internal Medicine; Referring Provider Internal Medicine; Visit Provider Family Medicine
DX: I73.9 Peripheral vascular disease, unspecified (principal); J44.9 Chronic obstructive pulmonary disease, unspecified; R60.0 Localized edema; S81.812D Laceration without foreign body, left lower leg, subsequent encounter; X58.XXXD Exposure to other specified factors, subsequent encounter; Z86.718 Personal history of other venous thrombosis and embolism; Z87.891 Personal history of nicotine dependence; I87.2 Venous insufficiency (chronic) (peripheral)
CPT/HCPCS: 11042; 15271; Q4186

== ENCOUNTER → 2023-04-18 | Outpatient (CLI) | payer MEDICARE, SELFPAY ==
--- NOTE | 2023-04-22 07:08 | PCM.PSN.6M ---
PSN 6 Minute Walk Test Interpretation Interpretation: The patient ambulated 496 feet over the course of 6 minutes beginning on room air with use of a walker. Pretesting oxygen saturation was noted to be 95% on room air. With ambulation, the emily oxygen saturation was 90%. This represents a significant exertional oxygen desaturation, consistent with a pulmonary limitation to exercise tolerance. Recommendations Recommendations: There is no indication for the use of supplemental oxygen at this time. However, close interval follow-up was recommended, given the degree of oxygen desaturation noted during this study.
== END | disposition home or self-care (01) ==
PROVIDERS: PCP Internal Medicine; Referring Provider Nurse Practitioner Acute Care; Visit Provider Nurse Practitioner Acute Care
DX: R06.09 Other forms of dyspnea (principal)

== ENCOUNTER 2023-04-19 10:20 | Outpatient (RCR) | payer MEDICARE, SELFPAY ==
[2023-04-14 00:24] VITALS: BP 168/67; PULSE 61; RESP 18; TEMP 36.3; BMI 26.2
[2023-04-19 10:45] VITALS: BP 124/64; PULSE 62; RESP 16; TEMP 36.2; BMI 26.2
--- NOTE | 2023-04-19 15:08 | PN.PCM_ITS ---
History of Present Illness Date of Service: 04/19/23 Chief Complaint: nonhealing traumatic wound of left guido History of Wound: Ijeoma is an 83 yo female that presents for evaluation and treatment of a nonhealing traumatic wound of her left guido that occurred from a skin tear while she was playing with her dog. This occurred on January 04, 2023. She was seen in ER and treated for cellulitis and DVT. She has 3 days left of treatment of Augmentin. She is on Eliquis for treatment of the DVT. She has a h/o aortic aneurysm with repair and smoking history with mild COPD. She also has a h/o renal artery stenosis. She has been using Adaptic and nonadherent dressing and gauze to wound except when she was home and she left it open to air. She has pain and edema L leg. Does not wear compression typically. Has mild edema to right lower leg as well. She denies odor, erythema, fever, chills. Subjective Subjective Ijeoma returns today for follow up of a nonhealing wound of her left guido. She tolerated Epifix #4 application last week. She is healed today. Objective Data Objective Data Vital Signs: Vital Signs Temp Pulse Resp BP O2 Del Method 97.2 F L 62 16 124/64 H Room Air 04/19/23 10:45 04/19/23 10:45 04/19/23 10:45 04/19/23 10:45 04/19/23 10:45 Oxygen Delivery Method Room Air Weight: 69.4 kg Body Mass Index (BMI) 26.2 Physical Exam Const alert, oriented x3 and no apparent distress General Appearance: cooperative and comfortable HEENT normocephalic and head/scalp atraumatic Resp normal respiratory effort Effort and Inspection: able to speak in complete sentences Cardio regular rate and regular rhythm Skin Wounds: wounds noted Wound Narrative: as in clinical panel Psych mental status grossly normal, thought process normal, cooperative and affect normal Debridement Note Debridement Note Wound debrided: left guido Laterality: Left No debridement was completed: No debridement was completed today (ulcer healed) Post-Debridement Measurements and Additional Note: Post-Debridement Measurements/Treatment PHONG - Nurse 1 - General Ulcer Assessment Start: 03/15/23 11:23 Freq: Status: Active Protocol: STANLEY Activity Type Activity Date Activity User E-sign Co-sign Detail Recorded Client Recorded Date Recorded By Document 03/15/23 11:24 RB [id number] 03/15/23 11:25 RB Document 03/22/23 11:08 MT [id number] 03/22/23 11:15 MT Edit Result 03/22/23 11:08 MT (1) [id number] 03/22/23 11:18 MT Document 03/29/23 12:11 RB [id number] 03/29/23 12:13 RB Document 04/05/23 11:42 MT Desktop 04/05/23 11:51 MT Document 04/12/23 11:14 RB Desktop 04/12/23 11:18 RB (1) Pulse Rate (60-100) => 59 L Blood Pressure (90/60-120/80) => 139/65 H Blood Pressure Mean (mm Hg) => 89 03/15/23 03/22/23 03/29/23 11:24 11:08 12:11 WC - Today's Visit Information Type of service Follow-up Visit Follow-up Visit Follow-up Visit (Physician/SURVEYOR GEOPHYSICAL PROSPECTING (Physician/SURVEYOR GEOPHYSICAL PROSPECTING (Physician/SURVEYOR GEOPHYSICAL PROSPECTING ) ) ) Arrival Mode Ambulatory Ambulatory Ambulatory Transfer Assistance None None Accompanied by self Patient Identification Verified (Name & Yes Yes Yes ) Patient Requires Transmission-Based No No Precautions Safety Precautions Fall Prevention Height and Weight Body Mass Index (BMI) 26.2 26.2 26.2 BMI Classification Overweight Overweight Overweight Vital Signs Temperature (97.8 F-99.1 F) 96.6 F L 96 F L 96.3 F L Temperature Source Temporal Temporal Temporal Pulse Rate (60-100) 72 59 L 61 Pulse Location Monitor Monitor Monitor Respiratory Rate (12-18) 18 18 18 Respiratory rate source Observation Observation Observation Oxygen Delivery Method Room Air Blood Pressure (90/60-120/80) 111/56 L 139/65 H 161/72 H Blood Pressure Mean (mm Hg) 74 89 101 Source Monitor Monitor Monitor Position Semi-Fowlers Sitting Semi-Fowlers Blood Pressure Location Left Arm Right Arm Left Arm History Since Last Visit- (Skip if this is Patient's initial visit) Have you changed medications since your No No last visit? Any new allergies or adverse reactions No No Had a fall/change in ADL's that may No No increase risk of falls Signs or symptoms of abuse and/or No No neglect since last visit Have you been in the hospital since your No No last visit? Has dressing in place as prescribed Yes Yes Yes Has compression in place as prescribed Yes N/A Yes Has offloadiing in place as prescribed No N/A No Experienced any changes in pain level or No No No management Left Footwear Regular Shoe Right Footwear Regular Shoe Pain Scale: 0-10 Numeric Is Patient Pain Free? Yes Yes Yes 04/05/23 04/12/23 11:42 11:14 WC - Today's Visit Information Type of service Follow-up Visit Follow-up Visit (Physician/SURVEYOR GEOPHYSICAL PROSPECTING (Physician/SURVEYOR GEOPHYSICAL PROSPECTING ) ) Arrival Mode Ambulatory, Ambulatory Walker Transfer Assistance None Accompanied by self Patient Identification Verified (Name & Yes Yes ) Patient Requires Transmission-Based No Precautions Safety Precautions Fall Prevention Height and Weight Body Mass Index (BMI) 26.2 26.2 BMI Classification Overweight Overweight Vital Signs Temperature (97.8 F-99.1 F) 97 F L 97.3 F L Temperature Source Temporal Temporal Pulse Rate (60-100) 57 L 61 Pulse Location Monitor Monitor Respiratory Rate (12-18) 18 18 Respiratory rate source Observation Observation Oxygen Delivery Method Room Air Blood Pressure (90/60-120/80) 166/69 H 168/67 H Blood Pressure Mean (mm Hg) 101 100 Source Monitor Monitor Position Sitting Semi-Fowlers Blood Pressure Location Left Arm Left Arm History Since Last Visit- (Skip if this is Patient's initial visit) Have you changed medications since your No last visit? Any new allergies or adverse reactions No Had a fall/change in ADL's that may No increase risk of falls Signs or symptoms of abuse and/or No neglect since last visit Have you been in the hospital since your No last visit? Has dressing in place as prescribed Yes Has compression in place as prescribed Yes Yes Has offloadiing in place as prescribed Yes No Experienced any changes in pain level or No No management Left Footwear Regular Shoe Right Footwear Regular Shoe Pain Scale: 0-10 Numeric Is Patient Pain Free? Yes Yes - Nurse 1 - General Ulcer Measurement Start: 03/15/23 11:23 Freq: Status: Active Protocol: Activity Type Activity Date Activity User E-sign Co-sign Detail Recorded Client Recorded Date Recorded By Document 03/15/23 11:24 RB [id number] 03/15/23 11:25 RB Document 03/22/23 11:08 DE [id number] 03/22/23 11:15 DE Document 03/29/23 12:11 [id number] 03/29/23 12:13 Document 04/05/23 11:42 DE Desktop 04/05/23 11:51 DE Document 04/12/23 11:14 Desktop 04/12/23 11:18 03/15/23 03/22/23 03/29/23 11:24 11:08 12:11 Wound Center Nurse 1 2-left guido -Combined with other wound No No -Current Size (cm) - Length 2.2 1.9 1.7 -Current Size (cm) - Width 1.2 1.4 1.1 -Current Size (cm) - Depth 0.2 0.1 0.1 -Total Square Cm 2.64 2.66 1.87 -Photo Taken Yes Yes -Tunneling No No -Undermining/Tunneling No No -Circular Undermining No No -Exudate Amt Medium Small Medium -Exudate Type Serosanguineous Serous Serosanguineous -Wound Margin Distinct, Flat & Intact Distinct, Outline Outline Attached Attached -Granulation Amt Medium (34-66%) Small (1-33%) Medium (34-66%) -Granulation Quality Toluca Pale Toluca -Slough/Fibrin Yes -Necrosis Amt Medium (34-66%) Large (67-100%) Medium (34-66%) -Necrotic Tissue Type Adherent Slough Adherent Slough Adherent Slough -Structure Exposed N/A N/A -Texture (Kaitlin-wound Skin Appearance) Assessed, Assessed Assessed Scarring -Moisture (Kaitlin-wound Skin Appearance) Assessed Assessed Assessed -Color (Kaitlin-wound Skin Appearance) Assessed Assessed Assessed -Temperature (Kaitlin-wound Skin No Abnormality No Abnormality No Abnormality Appearance) (Pt Warm) (Pt Warm) (Pt Warm) -Tenderness on Palpation (Kaitlin-wound No No No Skin Appearance) -Ulcer Cleansing Wound Cleanser Wound Cleanser Wound Cleanser -Foul Odor after Cleansing No No No -Anesthetic Used 5% Lidocaine 5% Lidocaine 5% Lidocaine Gel Gel Gel Lower Limb Edema Present Yes Yes Yes Left Calf (cm) 29.2 29.2 30.7 Left Ankle (cm) 19.5 19.5 21.7 04/05/23 04/12/23 11:42 11:14 Wound Center Nurse 1 2-left guido -Combined with other wound No -Current Size (cm) - Length 1.6 0.7 -Current Size (cm) - Width 1.0 0.5 -Current Size (cm) - Depth 0.1 0.1 -Total Square Cm 1.60 0.35 -Photo Taken Yes -Tunneling No -Undermining/Tunneling No -Circular Undermining No -Exudate Amt Small Medium -Exudate Type Serous Serosanguineous -Wound Margin Flat & Intact Distinct, Outline Attached -Granulation Amt Medium (34-66%) Medium (34-66%) -Granulation Quality Pale,Toluca Toluca -Slough/Fibrin Yes -Necrosis Amt Medium (34-66%) Medium (34-66%) -Necrotic Tissue Type Adherent Slough Adherent Slough -Structure Exposed N/A -Texture (Kaitlin-wound Skin Appearance) Assessed Assessed -Moisture (Kaitlin-wound Skin Appearance) Assessed Assessed -Color (Kaitlin-wound Skin Appearance) Assessed Assessed -Temperature (Kaitlin-wound Skin No Abnormality Appearance) (Pt Warm) -Tenderness on Palpation (Kaitlin-wound No No Skin Appearance) -Ulcer Cleansing Soap and Water Wound Cleanser -Foul Odor after Cleansing No No -Anesthetic Used 5% Lidocaine 5% Lidocaine Gel Gel Lower Limb Edema Present Yes Yes Left Calf (cm) 30.7 30 Left Ankle (cm) 21.7 20.5 WC - Nurse 2 - General Ulcer CM Notes Start: 03/15/23 11:23 Freq: Status: Active Protocol: Activity Type Activity Date Activity User E-sign Co-sign Detail Recorded Client Recorded Date Recorded By Document 03/15/23 13:26 PL [id number] 03/15/23 13:27 PL Document 03/22/23 12:47 PL [id number] 03/22/23 12:48 PL Document 03/29/23 13:49 PL [id number] 03/29/23 13:50 PL Edit Result 03/29/23 13:49 PL (1) [id number] 03/29/23 13:51 PL Document 04/05/23 13:14 PL [id number] 04/05/23 13:15 PL Document 04/12/23 12:41 GM [id number] 04/12/23 12:43 GM Edit Result 04/12/23 12:41 GM (2) [id number] 04/12/23 12:44 GM (1) 2-left guido - Bioengineered Tissue No => Yes - Type of Bioengineered Tissue => Epifix 18mm Disc - Expiration Date => 12/14/27 - Product Lot Number => [id number] - Percent Used => 100 - Debridement - Subq, 1st 20sq cm Yes => No - Apply Skin Sub - 1st 25 sq cm - Legs => 1 - Epifix 18mm Disc => 3 (2) 2-left guido - Expiration Date => 12/14/27 - Product Lot Number => [id number] - Percent Used => 100 - Lot number of Saline Used => [id number] 03/15/23 03/22/23 03/29/23 13:26 12:47 13:49 Wound Center Nurse 2 2-left guido -Time 11:38 12:13 12:23 -Correct Patient Yes Yes Yes -Correct Side, Site, Position Yes Yes Yes -Correct Procedure Yes Yes Yes -Procedure Performed Yes Yes Yes -Type of Procedure Debridement Debridement Debridement -Clinical Debridement Subcutaneous Subcutaneous Subcutaneous -Tissue Removed Subcutaneous Subcutaneous Subcutaneous -Post Debridement (cm) - Length 2.0 1.7 1.0 -Post Debridement (cm) - Width 1.3 1.8 0.5 -Post Debridement (cm) - Depth 0.2 0.2 0.2 -Total Square (Post) (cm) 2.60 3.06 0.50 -Area of Debridement (cm) - Length 2.0 1.7 1.0 -Area of Debridement (cm) - Width 1.3 1.8 0.5 -Total Square (Area) (cm) 2.60 3.06 0.50 -Tunneling No No No -Undermining/Tunneling No No No -Circular Undermining No No No -Wound/Ulcer Outcome Not Healed Not Healed Not Healed -Ulcer Cleansing Rinsed/ Rinsed/ Rinsed/ Irrigated with Irrigated with Irrigated with Saline Saline Saline -Foul Odor after Cleansing No No No -Bioengineered Tissue No Yes Yes -Type of Bioengineered Tissue Epifix 18mm Epifix 18mm Disc Disc -Expiration Date 12/14/27 12/14/27 -Product Lot Number [id number] -Percent Used 100 100 -Lot number of Saline Used -Bleeding Controlled with Pressure Pressure Pressure -Treatment Response Procedure Procedure Procedure Tolerated Well Tolerated Well Tolerated Well -Debridement - Subq, 1st 20sq cm Yes No No -Apply Skin Sub - 1st 25 sq cm - Legs 1 1 -Epifix 18mm Disc 3 3 Pain Scale: 0-10 Numeric Is Patient Pain Free? Yes Yes Yes 04/05/23 04/12/23 13:14 12:41 Wound Center Nurse 2 2-left guido -Time 11:56 11:30 -Correct Patient Yes Yes -Correct Side, Site, Position Yes Yes -Correct Procedure Yes Yes -Procedure Performed Yes Yes -Type of Procedure Debridement Debridement -Clinical Debridement Subcutaneous Subcutaneous -Tissue Removed Subcutaneous Subcutaneous -Post Debridement (cm) - Length 0.7 0.5 -Post Debridement (cm) - Width 0.5 0.2 -Post Debridement (cm) - Depth 0.1 0.1 -Total Square (Post) (cm) 0.35 0.10 -Area of Debridement (cm) - Length 0.7 0.5 -Area of Debridement (cm) - Width 0.5 0.2 -Total Square (Area) (cm) 0.35 0.10 -Tunneling No No -Undermining/Tunneling No No -Circular Undermining No No -Wound/Ulcer Outcome Not Healed Not Healed -Ulcer Cleansing Rinsed/ Rinsed/ Irrigated with Irrigated with Saline Saline -Foul Odor after Cleansing No No -Bioengineered Tissue Yes Yes -Type of Bioengineered Tissue Epifix 18mm Epifix 18mm Disc Disc -Expiration Date 12/14/27 12/14/27 -Product Lot Number [id number] -Percent Used 100 100 -Lot number of Saline Used [id number] -Bleeding Controlled with Pressure Pressure -Treatment Response Procedure Procedure Tolerated Well Tolerated Well -Debridement - Subq, 1st 20sq cm No No -Apply Skin Sub - 1st 25 sq cm - Legs 1 1 -Epifix 18mm Disc 3 3 Pain Scale: 0-10 Numeric Is Patient Pain Free? Yes Yes WC - Nurse 3 - General Ulcer D/C NN Start: 03/15/23 11:23 Freq: Status: Active Protocol: Activity Type Activity Date Activity User E-sign Co-sign Detail Recorded Client Recorded Date Recorded By Document 03/15/23 11:53 DL [id number] 03/15/23 11:55 DL Document 03/22/23 12:32 RB [id number] 03/22/23 12:32 RB Document 03/29/23 12:43 RB [id number] 03/29/23 12:44 RB Document 04/05/23 12:30 RB Desktop 04/05/23 12:31 RB 03/15/23 03/22/23 03/29/23 11:53 12:32 12:43 Wound Care Center Nurse 3 2-left guido -Ulcer Cleansing Rinsed/ Irrigated with Saline -Foul Odor after Cleansing No -Primary Dressing Applied Mepilex Border, Promogran -Primary Dressing Covered/Secured with Dry Gauze & Dry Gauze & Roll Gauze, Roll Gauze, Secured with Secured with Tape Tape -Other Covering tubigrip -Mepilex Border 1 -Promogran 1 Left -Tubular Bandage Single Layer Single Layer -Size of Tubigrip Used Size D Size D -Size C ($) -Size D ($) 1 1 Treatment Response Procedure Procedure Tolerated Well Tolerated Well Pain Scale: 0-10 Numeric Is Patient Pain Free? Yes Yes Yes Teaching: Wound Center Dressing Your Wound -Person Taught Patient -Teaching Method Discussion, Demonstration -Response to teaching Verbalize understanding WC - Visit Discharge Discharge Condition Stable Stable Stable Ambulatory Status Ambulatory, Ambulatory, Ambulatory, Walker Walker Walker Transportation Private Auto Private Auto Private Auto Medication Reconcilliation completed & No No provided to patient/care provider Clinical Summary of Care Provided Yes Yes Facility Type Home Health Orders Sent Yes 04/05/23 12:30 Wound Care Center Nurse 3 2-left guido -Ulcer Cleansing -Foul Odor after Cleansing -Primary Dressing Applied -Primary Dressing Covered/Secured with Dry Gauze,Dry Gauze & Roll Gauze,Secured with Tape -Other Covering -Mepilex Border -Promogran Left -Tubular Bandage Single Layer -Size of Tubigrip Used Size C -Size C ($) 1 -Size D ($) Treatment Response Procedure Tolerated Well Pain Scale: 0-10 Numeric Is Patient Pain Free? Yes Teaching: Wound Center Dressing Your Wound -Person Taught Patient -Teaching Method Discussion, Demonstration -Response to teaching Verbalize understanding WC - Visit Discharge Discharge Condition Stable Ambulatory Status Ambulatory, Walker Transportation Medication Reconcilliation completed & No provided to patient/care provider Clinical Summary of Care Provided Yes Facility Type Orders Sent Assessment/Plan Assessment/Plan (1) Wound of left lower extremity: CODE(S): S81.802A - Unspecified open wound, left lower leg, initial encou nter QUALIFIERS: Encounter type: subsequent encounter Qualified Code(s): S81.802D - Unspecified open wound, left lower leg, subsequent encounter (2) Peripheral vascular disease: CODE(S): I73.9 - Peripheral vascular disease, unspecified (3) Atherosclerotic vascular disease: CODE(S): I70.90 - Unspecified atherosclerosis (4) Essential (primary) hypertension: CODE(S): I10 - Essential (primary) hypertension (5) Non-healing wound of left lower extremity: CODE(S): S81.802A - Unspecified open wound, left lower leg, initial encounter (6) Venous insufficiency of both lower extremities: CODE(S): I87.2 - Venous insufficiency (chronic) (peripheral) (7) Ulcer of left guido with fat layer exposed: CODE(S): L97.822 - Non-pressure chronic ulcer of other part of left lower leg with fat layer exposed PLAN: Plan She is healed today. At home wound-care instructions: Will have her continue to wear tubigrip compression to both legs. Keep dressing clean and dry. Off-loading: The patient was instructed to avoid pressure and friction on the affected areas. Reposition every 2 hours at minimum. Avoid prolonged standing and/or dangling of legs. When seated, feet should be elevated at chest level. Frequent ambulation is encouraged. Diet: Patient encouraged to increase protein intake while taking caution to avoid high carbohydrate and/or sugar intake. Labs/cultures/imaging: Follow-up: She will be discharged today from treatment. We will be happy to see her in the future if needed. Note: [employer] speech recognition flatwork finisher hand software was used to create port ions of this document. Sound-alike and misspelled words, as well as other flatwork finisher hand errors may be contained in the documentation.
== END 2023-04-19 12:20 | disposition home or self-care (01) ==
LOC: WC 10:20
PROVIDERS: PCP Internal Medicine; Referring Provider Internal Medicine; Visit Provider Family Medicine
DX: L97.822 Non-pressure chronic ulcer of other part of left lower leg with fat layer exposed (principal); J44.9 Chronic obstructive pulmonary disease, unspecified; I82.409 Acute embolism and thrombosis of unspecified deep veins of unspecified lower extremity; I73.9 Peripheral vascular disease, unspecified; M79.606 Pain in leg, unspecified; R60.0 Localized edema; I87.2 Venous insufficiency (chronic) (peripheral); I10 Essential (primary) hypertension; I70.90 Unspecified atherosclerosis; S81.802D Unspecified open wound, left lower leg, subsequent encounter
CPT/HCPCS: 99213; G0463

== ENCOUNTER → 2023-04-22 | Outpatient (CLI) | payer MEDICARE, SELFPAY ==
--- NOTE | 2023-04-23 07:19 | PFT ---
INTRODUCTION: The patient is a 83-year-old female who presents for pulmonary function studies secondary to a diagnosis of dyspnea. Respiratory therapy reported good patient effort. Bronchodilators were used during testing. INTERPRETATION: Forced expiration spirometry demonstrates the presence of a moderate large airways obstructive ventilatory defect. There was no significant response to aerosolized bronchodilators. Spirograms are of good quality but do not plateau indicating slow emptying of the lungs. Body plethysmography was performed and revealed an elevated RV to 123% of predicted, indicative of underlying air trapping. Diffusing capacity by single breath CO is reduced to 47% of predicted. IMPRESSION: Irreversible moderate large airways obstructive ventilatory defect with associated air trapping and symmetric reduction in diffusing capacity.
== END | disposition home or self-care (01) ==
LOC: PSN 10:53
PROVIDERS: PCP Internal Medicine; Referring Provider Nurse Practitioner Acute Care; Visit Provider Nurse Practitioner Acute Care
DX: R06.09 Other forms of dyspnea (principal)
CPT/HCPCS: 94060; 94726; 94729

== ENCOUNTER → 2023-04-23 | Outpatient (CLI) | payer MEDICARE, SELFPAY ==
[2023-04-23 12:14] LABS: Absolute Lymphocyte Count 1.66 X10^3/uL (0.83-4.51); Absolute Neutrophil Count 5.5 X10^3/uL (2.0-7.7); Basophil# 0.09 X10^3/uL; Eosinophil# 0.21 X10^3/uL; Eosinophils% 2.4 % (0-5); Hematocrit 36.4 % (37-47); Hemoglobin 11.4 g/dL (12.0-15.0); Lymphocyte # 1.66 X10^3/ul (0.83-4.51); Lymphocyte % 19.1 % (19-41); Mean Corp Hgb Conc 31.3 g/dL (32-36); Mean Corpuscular Volume 95.8 fL (81-99); Mean Platelet Vol. 8.8 fl (6.2-12.0); Monocyte# 1.02 X10^3/uL; Monocyte% 11.7 % (0-10); NRBC Flagged by Analyzer 0 % (0-5); Neutrophil # 5.54 X10^3/uL (2.7-7.7); Neutrophil % 63.8 % (47-70); Platelet Count 289 K/mm3 (150-450); RBC Distribution Width CV 15.5 % (11.6-14.6); RBC Distribution Width SD 54.4 fl (35.1-43.9); White Blood Count 8.7 K/mm3 (4.4-11.0)
[2023-04-23 13:01] LABS: Vitamin B12 > 2000 pg/mL (211-911)
[2023-04-23 13:14] LABS: ALB/GLOB Ratio 0.7 RATIO (0.9-2.4); AST(SGOT) 16 U/L (15-37); Alanine Aminotransfer ALT/SGPT 28 U/L (13-56); Albumin, Serum 2.8 g/dL (3.2-5.0); Alkaline Phosphatase 66 U/L (45-117); Anion Gap 4 (5-15); BUN 20 mg/dL (7-18); BUN/Creat Ratio 16.1 RATIO (10-20); Calcium,Total 9.1 mg/dL (8.5-10.1); Chloride 109 mmol/L (98-107); Cholesterol 135 mg/dL (200); Creatinine, Serum 1.24 mg/dL (0.55-1.02); EST Glomerular Filtration Rate 44 mL/min (>60); Est Glom Filt Rate - Afr Amer 53 mL/min (>60); Globulin 4.1 g/dL (2.2-4.2); Glucose 93 mg/dL (74-106); High Density Lipoprotein 56 mg/dL; Potassium 3.8 mmol/L (3.5-5.1); Protein, Total 6.9 g/dL (6.4-8.2); Sodium Level 140 mmol/L (136-145); Triglycerides 105 mg/dL; Very Low Density Lipoprotein 21 mg/dL (5-40)
== END | disposition home or self-care (01) ==
LOC: BIMLAB 11:24
PROVIDERS: PCP Internal Medicine; Visit Provider Internal Medicine
DX: I10 Essential (primary) hypertension (principal); M81.0 Age-related osteoporosis without current pathological fracture; E53.8 Deficiency of other specified B group vitamins
CPT/HCPCS: 36415; 80053; 80061; 82306; 82607; 85025

== ENCOUNTER 2023-04-29 06:02 | Day surgery (SDC) | payer MEDICARE, SELFPAY ==
[2023-04-18 12:30] VITALS: PULSE 66; PULSE 71; PULSE 82; PULSE 88; PULSE 89; PULSE 90; PULSE 92; O2SAT 90; O2SAT 95
[2023-04-23 14:21] LABS: Hematocrit 37.5 % (37-47); Hemoglobin 11.7 g/dL (12.0-15.0); Mean Corp Hgb Conc 31.2 g/dL (32-36); Mean Corpuscular Hgb 30.7 pg (27.0-32.0); Mean Corpuscular Volume 98.4 fL (81-99); Mean Platelet Vol. 8.6 fl (6.2-12.0); Platelet Count 273 K/mm3 (150-450); RBC Distribution Width CV 15.7 % (11.6-14.6); RBC Distribution Width SD 56.8 fl (35.1-43.9); Red Blood Count 3.81 M/mm3 (4.2-5.4); White Blood Count 9.5 K/mm3 (4.4-11.0)
[2023-04-23 14:44] LABS: Anion Gap 3 (5-15); BUN 20 mg/dL (7-18); BUN/Creat Ratio 15.3 RATIO (10-20); Calcium,Total 9.3 mg/dL (8.5-10.1); Chloride 107 mmol/L (98-107); Creatinine, Serum 1.31 mg/dL (0.55-1.02); EST Glomerular Filtration Rate 41 mL/min (>60); Est Glom Filt Rate - Afr Amer 50 mL/min (>60); Estimated Creatinine Clearance 28.25 ml/min; Glucose 128 mg/dL (74-106); Potassium 3.9 mmol/L (3.5-5.1); Sodium Level 141 mmol/L (136-145)
--- NOTE | 2023-04-25 09:50 | EKG12_ITS ---
Test Reason : PRE OP Blood Pressure : / mmHG Vent. Rate : 058 BPM Atrial Rate : 058 BPM P-R Int : 196 ms QRS Dur : 084 ms QT Int : 424 ms P-R-T Axes : 072 072 074 degrees QTc Int : 416 ms Sinus bradycardia Otherwise normal ECG Confirmed by NAUN RODRIGUEZ, TONI ([id number]), index editor MALLORIE LOGAN ([id number]) on 04/29/2023 2:04:14 PM Referred By: Baudilio Jerome Confirmed By:TONI MAGALLON MD
--- NOTE | 2023-04-29 | LES_PTH ---
PATIENT: DANAE KYLE LOC: [facility] [place][id number] AGE/SX: 83/F ROOM: RE04/29/[address]: Dr. Baudilio Jerome MD : [id number] BED: DIS: 04/29/2023 SPEC #: [id number] RECD: 04/29/23 08:02 STATUS: ESSIE MARILEE #: [id number] ALLISON: 04/29/23 00:[address]: Baudilio Jerome DEPT: SURGICAL PATHOLOGY RECD BY: Missy Nelson ENTERED: 04/29/23 09:02 SP TYPE: Lesion OTHR DR: Dr. Natasha Louis MD Tissues: Skin of lip, NOS Procedures: Frozen Section (charge) Special Stain Group I Surgery Specimen Level IV GMS Stain (control) HEADER OPERATION: Excision mouth lesion, lip mass, frozen section PRE-OP DIAGNOSIS: Neoplasm of uncertain behavior of lip TISSUE SUBMITTED: Lower lip lesion, frozen section (long stitch - anterior 6 o'clock, short stitch - right lateral margin 9 o'clock) FROZEN SECTION DIAGNOSIS Lower lip lesion, excisional biopsy: Acanthosis, pseudoepitheliomatous hyperplasia, acute and chronic inflammation and granulation tissue reaction. Negative for malignancy. CHRISTOPHER:teri 04/29/2023 Case has been reviewed in consultation with Dr. Paz who concurs with the above diagnosis. IDC:AM MICROSCOPIC DIAGNOSIS Lower lip lesion, excisional biopsy: Focal ulceration, acute and chronic inflammation and granulation tissue reaction. Acanthosis and pseudoepitheliomatous hyperplasia. Negative for malignancy. See comment. CHRISTOPHER:teri 04/30/2023 COMMENT Special stain for fungi is positive for organisms (yeast and pseudohyphae) consistent with Cindy species; matched control is appropriate. MICROSCOPIC DESCRIPTION Slides are reviewed. GROSS DESCRIPTION Received fresh for frozen section diagnosis labeled with the patient's name is a specimen designated lower lip lesion. The specimen consists of a piece of king-white skin ellipse measuring 2.2 x 1.2 x 0.3 cm. The specimen is oriented as follows: (long stitch - anterior 6 o'clock, short stitch - right lateral margin 9 o'clock. The specimen is inked as follows: 6 o'clock, anterior tip - green, 12 o'clock, posterior tip - yellow, right lateral 9 o'clock margin - blue, 3 o'clock, medial margin - black. The specimen is serially sectioned and submitted entirely for frozen section diagnosis in two cassettes. Cassette 1 contains the anterior and posterior tips. / SJ:teri 04/29/2023 TC:2 CPT: 15106, 55343, 87392
[2023-04-29 06:33] VITALS: BP 145/71; PULSE 62; RESP 16; TEMP 36.9; O2SAT 98; BMI 23.6
[2023-04-29] MEDS: Lactated Ringers 1,000 ML 15 ML IV (06:35)
[2023-04-29] MEDS: Clindamycin 900 MG/50 ML BAG 75 MG IV (07:34)
--- NOTE | 2023-04-29 07:37 | PCM.DC.SUM ---
Providers Primary Care Physician: Dr. Natasha Louis MD Reason For Visit: Excision, Mouth Lesion Medications at Discharge Home Medications clonidine HCl 0.3 mg tablet 0.3 mg PO TID BLOOD PRESSURE 08/13/18 hydralazine 100 mg tablet 100 mg PO Q6H BLOOD PRESSURE 08/13/18 labetalol 200 mg tablet 300 mg PO TID BLOOD PRESSURE 08/13/18 lisinopril 10 mg tablet 10 mg PO DAILY blood pressure 12/01/18 cyanocobalamin (vitamin B-12) 5,000 mcg capsule 5,000 mcg PO DAILY supplement 06/08/19 omeprazole 20 mg capsule,delayed release 20 mg PO DAILY acid reflux 06/08/19 cholecalciferol (vitamin D3) 50 mcg (2,000 unit) capsule 50 mcg PO DAILY SUPPLEMENT 06/19/21 zinc 50 mg tablet 50 mg PO DAILY SUPPLEMENT 06/19/21 alendronate 70 mg tablet 70 mg PO PATINO BONES 12/29/21 amlodipine 10 mg tablet 10 mg PO DAILY BLOOD PRESSURE 07/24/22 multivitamin 1 tab PO DAILY HEALTH MAINTENANCE 07/24/22 turmeric root extract 500 mg tablet 500 mg PO DAILY SUPPLEMENT 07/24/22 calcium citrate 250 mg PO BID 09/11/22 omega-3 fatty acids 1,000 mg capsule 1,000 mg PO TID SUPPLEMENT 09/11/22 antiarthritic combination no.2 900 mg tablet (glucosamine-chondroitin) 900 mg PO BID 09/12/22 biotin 10,000 mcg capsule 10,000 mcg PO TID SUPPLEMENT 09/12/22 docusate sodium 100 mg tablet 200 mg PO BID Constipation 01/29/23 pravastatin 40 mg tablet 40 mg PO QHS #30 tabs 01/31/23 duloxetine 30 mg capsule,delayed release 30 mg PO BID 02/27/23 apixaban 5 mg tablet (Eliquis) 5 mg PO BID #60 tabs 03/19/23 alprazolam 0.25 mg tablet (Xanax) 0.25 mg PO DAILY PRN anxiety #30 tabs 03/25/23 valacyclovir 500 mg tablet (Valtrex) 500 mg PO Q12H #6 tabs 04/23/23 Weight / BMI Weight Weight: 64.5 kg Body Mass Index (BMI) 23.6 ABG / Lab / Microbiology Data 04/23/23 13:54 04/23/23 13:54 D/C Instructions Discharge Diet: Soft diet Discharge Activity: Return to Normal Activity Please Follow Up With: Baudilio Jerome MD When: end of next week Meaningful Use Info Meaningful Use Diagnoses (Choose all that apply): None applicable Discharge Plan Admission Attending Provider: Baudilio Jerome Primary Care Provider: Natasha Louis Discharge Orders/Prescriptions Prescriptions: No Action biotin 10,000 mcg capsule 10,000 mcg PO TID labetalol 200 mg tablet 300 mg PO TID clonidine HCl 0.3 mg tablet 0.3 mg PO TID hydralazine 100 mg tablet 100 mg PO Q6H docusate sodium 100 mg tablet 200 mg PO BID lisinopril 10 mg tablet 10 mg PO DAILY zinc 50 mg tablet 50 mg PO DAILY cholecalciferol (vitamin D3) 50 mcg (2,000 unit) capsule 50 mcg PO DAILY calcium citrate 250 mg calcium tablet 250 mg PO BID glucosamine-chondroitin 900 mg tablet 900 mg PO BID valacyclovir [Valtrex] 500 mg tablet 500 mg PO Q12H Qty: 6 0RF alendronate 70 mg tablet 70 mg PO PATINO omeprazole 20 MG capsule,delayed release(DR/EC) 20 mg PO DAILY cyanocobalamin (vitamin B-12) 5,000 MCG capsule 5,000 mcg PO DAILY amlodipine 10 mg tablet 10 mg PO DAILY multivitamin Tablet 1 tab PO DAILY turmeric root extract 500 mg Tablet 500 mg PO DAILY omega-3 fatty acids 1,000 mg capsule 1,000 mg PO TID duloxetine 30 mg capsule,delayed release(DR/EC) 30 mg PO BID Patient Comments: TAKE 1 CAPSULE BY MOUTH TWICE A DAY pravastatin 40 mg tablet 40 mg PO QHS Qty: 30 11RF Eliquis 5 mg tablet 5 mg PO BID Qty: 60 0RF alprazolam [Xanax] 0.25 mg tablet 0.25 mg PO DAILY PRN (Reason: anxiety) Qty: 30 0RF Referrals / Follow Up: Natasha Louis MD [Primary Care Provider] - Disposition Disposition (needs filled in before D/C Order can be placed): Home, Self Care
[2023-04-29] MEDS: Lidocaine 2% /Epi 1:100 (20ml) 20 ML VIAL (07:50)
--- NOTE | 2023-04-29 08:21 | PCM.OPRPT ---
Report of Operation Date of Procedure: 04/29/23 Pre-Operative Diagnosis: lower lip lesion Post-Operative Diagnosis: same Surgery/Procedure Performed:: excision lower lip lesion (3x2 cm) Surgeon: Baudilio Jerome Type of Anesthesia: General Anesthesiologist: Nando Trujillo Estimated Blood Loss (mL): minimal Description of Procedure: The patient was taken to the operating room on 04/29/2023. She was placed in the supine position on the operating table. She was given sufficient general endotracheal anesthesia. The head of bed was elevated 30 degrees. The patient was prepped and draped sterilely. 1% lidocaine with epinephrine was injected into the mucosa surrounding the lesion. After sufficient vasoconstriction, an ellipse was fashioned with 5 mm margins on each side of the lesion. The ellipse was incised with a 15 blade. Bipolar cautery was used for hemostasis. Next, I used tenotomy scissors to dissect the mucosa off the underlying muscle. Nylon sutures were use to richa for pathology and this was sent for frozen section. Hemostasis was achieved with bipolar cautery. I then irrigated the wound. I then heard from anesthesia that there was no evidence of malignancy. The mucosa was closed with interrupted 4-0 chromic. The patient was then awoken and brought to recovery room in stable condition. blood loss minimal replacement none. sponge, needle and instrument count correct at the end of the procedure.
[2023-04-29 08:28] VITALS: BP 137/74; BP 145/71; PULSE 64; RESP 16; TEMP 37.3; O2SAT 92
[2023-04-29 08:30] VITALS: BP 135/68; BP 145/71; PULSE 61; RESP 16; O2SAT 93
[2023-04-29 08:45] VITALS: BP 124/63; BP 145/71; PULSE 62; RESP 16; O2SAT 97
[2023-04-29 09:00] VITALS: BP 117/61; BP 145/71; PULSE 57; RESP 16; TEMP 36.8; O2SAT 93
[2023-04-29 09:30] VITALS: BP 145/71
== END 2023-04-29 09:40 | disposition home or self-care (01) ==
LOC: SDC 06:02 → AC 06:02
PROVIDERS: PCP Internal Medicine; Referring Provider Otolaryngology; Visit Provider Otolaryngology
PROC: (CPT 11446; principal; 2023-04-29 07:20)
DX: L83 Acanthosis nigricans (principal); J44.9 Chronic obstructive pulmonary disease, unspecified; K13.0 Diseases of lips; Z79.899 Other long term (current) drug therapy; I10 Essential (primary) hypertension; Z86.718 Personal history of other venous thrombosis and embolism; Z87.891 Personal history of nicotine dependence; Z79.01 Long term (current) use of anticoagulants; Z85.72 Personal history of non-Hodgkin lymphomas
CPT/HCPCS: 11446; 00300; 36415; 80048; 85027; 88305; 88312; 88331; 93005; 94618; J7120; J2405

== ENCOUNTER 2023-05-10 07:17 | Emergency (ER) | payer MEDICARE, SELFPAY ==
[2023-05-10 07:18] VITALS: BP 172/71; PULSE 66; RESP 14; TEMP 36.4; O2SAT 95; BMI 26.2
[2023-05-10 07:28] VITALS: BP 211/86; PULSE 67
--- NOTE | 2023-05-10 07:35 | RAD_ITS ---
HISTORY: CP x 4 days, history of aortic dissection status post stent. TECHNIQUE: XR Chest 1 View. COMPARISON: 07/24/2022. FINDINGS: CARDIOMEDIASTINAL BORDERS: Cardiac silhouette again upper limits of normal in size. Mediastinal contour unchanged with aortic stent graft repair. LUNGS: Resolution of right upper lobe masslike consolidation. PLEURA: No pleural effusion or pneumothorax seen. Mild hyperinflation with chronic blunting of the left costophrenic angle from scarring. OSSEOUS STRUCTURES: Old right lower lobe fractures. Thoracolumbar fusion hardware. RAD/Chest 1 View (Portable) IMPRESSION: No acute cardiopulmonary process identified. Electronically Signed: Maricel Easley MD at 8:29 EDT ,
[2023-05-10 07:48] LABS: Absolute Lymphocyte Count 1.06 X10^3/uL (0.83-4.51); Absolute Neutrophil Count 9.3 X10^3/uL (2.0-7.7); Basophil# 0.04 X10^3/uL; Basophil% 0.4 % (0-1); Eosinophil# 0.05 X10^3/uL; Eosinophils% 0.4 % (0-5); Hematocrit 38.1 % (37-47); Hemoglobin 12.1 g/dL (12.0-15.0); Lymphocyte # 1.06 X10^3/ul (0.83-4.51); Lymphocyte % 9.4 % (19-41); Mean Corp Hgb Conc 31.8 g/dL (32-36); Mean Corpuscular Hgb 30.5 pg (27.0-32.0); Mean Platelet Vol. 8.5 fl (6.2-12.0); Monocyte# 0.67 X10^3/uL; Monocyte% 5.9 % (0-10); NRBC Flagged by Analyzer 0 % (0-5); Neutrophil # 9.28 X10^3/uL (2.7-7.7); Neutrophil % 82.2 % (47-70); Platelet Count 279 K/mm3 (150-450); RBC Distribution Width CV 15.7 % (11.6-14.6); RBC Distribution Width SD 55.8 fl (35.1-43.9); Red Blood Count 3.97 M/mm3 (4.2-5.4); White Blood Count 11.3 K/mm3 (4.4-11.0)
--- NOTE | 2023-05-10 07:56 | EX.ED.DYSGE1 ---
HPI History of Present Illness Chief Complaint: Chest Pain Detail of Chief Complaint: Lower central chest pain that radiates downward to the umbilicus Informant: patient and spouse/S.O. Onset/Context/Timing Onset: Weeks (The pain has been present for 1 week) Context: - (Does not recall) Timing: Continuous Quality: Pressure sensation that waxes and wanes Location: Lower central chest radiating down to the umbilicus Current Severity: Mild Maximum Severity: Moderate Worsened by: Nothing Relieved by: Nothing Associated Symptoms Associated Symptoms: Nausea, episode of emesis yesterday Narrative Narrative: Patient is an 83-year-old woman who is a former smoker. She quit in 1974. She does have history of atherosclerotic vascular disease with a type a aortic dissection that was fixed in 2019 by stenting at the [facility]. She also has history of GERD, hypertension, large cell lymphoma that is in remission, goiter, and hyperlipidemia. She has just discomfort that started 1 week ago. It has been constant. There are no exacerbating, alleviating or precipitating factors. There is no radiation. There is no increased dyspnea from baseline. Patient's blood pressure was noted to be elevated. She was asked if she has taken her blood pressure meds. Her comment was a try. She has not taken her medication this morning nor did she take her medication yesterday. She is on hydralazine, labetalol and clonidine for her hypertension. Patient was informed of the importance of not missing any of her doses and specifically the clonidine. Patient denies pain in her back or radiation to her back. Patient does have remote history of DVT. She is on anticoagulant. She does endorse bruising easily. She denies black or maroon-colored stool. She denied hematemesis or coffee grounds with episode of emesis yesterday. There is family history cholelithiasis. She states she avoids greasy foods. She will not endorse whether greasy foods make her ill or she has an intolerance. She does endorse edema of her lower extremities. She has been sleeping in a recliner for months according to . Prior similar symptoms: No Recent Illness/Hospitalization: No [facility] Medical History Abdominal mass Abnormal CT of the chest Adjustment disorder with anxious mood Bilateral carotid bruits BiPAP (biphasic positive airway pressure) dependence Cancer Cardiology follow-up encounter COPD (chronic obstructive pulmonary disease) Cystocele with prolapse Debility Diffuse large cell lymphoma in remission Dissection of thoracic aorta (~09/04/18) DVT (deep venous thrombosis) Essential (primary) hypertension Former smoker GERD (gastroesophageal reflux disease) High cholesterol History of deep venous thrombosis (DVT) of distal vein of right lower extremity History of echocardiogram History of stress test Incontinence Nonrheumatic aortic valve stenosis Nonrheumatic mitral valve insufficiency Open wound DARRIUS (obstructive sleep apnea) Osteoarthritis Osteoporosis Peripheral vascular disease Pessary maintenance Postlaminectomy syndrome Pulmonary hypertension Renal artery stenosis Shortness of breath on exertion Sleep apnea Stage 1 mild COPD by GOLD classification Thoracic spondylosis without myelopathy Thyroid nodule Walker as ambulation aid Wears glasses Wears partial dentures Home Medications clonidine HCl 0.3 mg tablet 0.3 mg PO TID BLOOD PRESSURE 08/13/18 [History Last Taken 04/29/23] hydralazine 100 mg tablet 100 mg PO Q6H BLOOD PRESSURE 08/13/18 [History Last Taken 04/29/23] labetalol 200 mg tablet 300 mg PO TID BLOOD PRESSURE 08/13/18 [History Last Taken 04/29/23] lisinopril 10 mg tablet 10 mg PO DAILY blood pressure 12/01/18 [History Last Taken 04/29/23] cyanocobalamin (vitamin B-12) 5,000 mcg capsule 5,000 mcg PO DAILY supplement 06/08/19 [History Last Taken 07/23/22] omeprazole 20 mg capsule,delayed release 20 mg PO DAILY acid reflux 06/08/19 [History Last Taken 07/23/22] cholecalciferol (vitamin D3) 50 mcg (2,000 unit) capsule 50 mcg PO DAILY SUPPLEMENT 06/19/21 [History Last Taken 07/23/22] zinc 50 mg tablet 50 mg PO DAILY SUPPLEMENT 06/19/21 [History Last Taken 07/23/22] alendronate 70 mg tablet 70 mg PO PATINO BONES 12/29/21 [History Last Taken 07/22/22] amlodipine 10 mg tablet 10 mg PO DAILY BLOOD PRESSURE 07/24/22 [History Last Taken 04/29/23] multivitamin 1 tab PO DAILY HEALTH MAINTENANCE 07/24/22 [History Last Taken 07/24/22] turmeric root extract 500 mg tablet 500 mg PO DAILY SUPPLEMENT 07/24/22 [History Last Taken 07/24/22] calcium citrate 250 mg PO BID 09/11/22 [History Last Taken Unknown] omega-3 fatty acids 1,000 mg capsule 1,000 mg PO TID SUPPLEMENT 09/11/22 [History Last Taken Unknown] antiarthritic combination no.2 900 mg tablet (glucosamine-chondroitin) 900 mg PO BID 09/12/22 [History Last Taken Unknown] biotin 10,000 mcg capsule 10,000 mcg PO TID SUPPLEMENT 09/12/22 [History Last Taken Unknown] docusate sodium 100 mg tablet 200 mg PO BID Constipation 01/29/23 [History Last Taken Unknown] pravastatin 40 mg tablet 40 mg PO QHS #30 tabs 01/31/23 [Rx Last Taken Unknown] duloxetine 30 mg capsule,delayed release 30 mg PO BID 02/27/23 [History Last Taken Unknown] apixaban 5 mg tablet (Eliquis) 5 mg PO BID #60 tabs 03/19/23 [Rx Last Taken 04/22/23] valacyclovir 500 mg tablet (Valtrex) 500 mg PO Q12H #6 tabs 04/23/23 [Rx Last Taken Unknown] alprazolam 0.25 mg tablet (Xanax) 0.25 mg PO DAILY PRN anxiety #30 tabs 04/30/23 [Rx Last Taken Unknown] glycopyrrolate 9 mcg-formoterol 4.8 mcg HFA aerosol inhaler (Bevespi Aerosphere) 2 puff inhalation QAM AND QPM #1 inh 05/09/23 [Rx Last Taken Unknown] spacer #1 ea 05/09/23 [Rx Last Taken Unknown] Allergy/AdvReac Type Severity Reaction Status Date / Time bisoprolol Allergy bleeding Verified 05/10/23 07:18 levofloxacin [From Levaquin] Allergy anxiety Verified 05/10/23 07:18 meloxicam Allergy bleeding Verified 05/10/23 07:18 Sulfa (Sulfonamide Allergy hives Verified 05/10/23 07:18 Antibiotics) codeine AdvReac Other Verified 05/10/23 07:18 Family History Mother CAD (coronary artery disease) <65 Daughter Breast cancer Sister Breast cancer Father , at age 53 Brain aneurysm Heart disease Daughter Cancer Thyroid Cancer Uncle Myocardial infarction Uncle Myocardial infarction Surgical History History of bunionectomy of right great toe History of carpal tunnel release History of cataract surgery History of left hip replacement History of left knee replacement History of open reduction and internal fixation (ORIF) procedure History of partial hysterectomy History of stent insertion of renal artery (~07/30/18) Hx of repair of dissecting thoracic aortic aneurysm, Micah type B (~09/04/18) Previous back surgery S/P lumbar fusion S/P thyroid biopsy (~12/2021) Status post right knee replacement Social History household members: spouse current occupational status: 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 Smoking Status: Former smoker quit date: 07/15/74 pack-years: 9 Electronic Cigarette Use: not used alcohol intake: current alcohol intake frequency: a few times a month substance use type: does not use caffeine: Yes Type: coffee Number of servings: 1 what type of physical activity do you participate in: walking and weight training frequency: 3-4 times per week duration: 60-90 minutes/day seatbelt use: always do you feel safe at home: Yes additional social history: -[facility] Constitutional Constitutional ED: Denies chills, fever(s), subjective, sweats or weight loss Eyes Eyes: Denies blurry vision, change in vision or diplopia ENT ENT ED: Denies ear pain, rhinorrhea or sore throat Cardiovascular Cardiovascular: Reports chest pain; Denies orthopnea, palpitations, paroxysmal nocturnal dyspnea or racing heartbeat Respiratory/Chest Respiratory/Chest: Reports dyspnea; Denies cough, dyspnea on exertion, orthopnea or paroxysmal nocturnal dyspnea Gastrointestinal Gastrointestinal: Reports abdominal pain, nausea and vomiting; Denies constipation, diarrhea or melena Genitourinary Genitourinary ED: Denies dysuria, hematuria or urinary frequency Musculoskeletal Musculoskeletal: Reports back pain and other Details: Patient does admit to chronic low back pain. There is no new back pain. ; Denies arthralgias, myalgias or neck pain Integumentary Denies rash Neurologic Neurologic: Denies headache(s), paresthesias or weakness Endocrine Endocrinology: Denies cold intolerance or heat intolerance Hematologic/Lymphatic Hematologic/Lymphatic: Reports as per HPI EXAM Physical Exam Const Vital Signs: 05/10/23 07:18 05/10/23 07:25 05/10/23 07:28 Temperature 97.6 F L Temperature Source Temporal Pulse Rate 66 67 Respiratory Rate 14 Respiratory Effort Short of Breath Blood Pressure 172/71 H 211/86 H Blood Pressure Mean 104 127 Pulse Ox 95 Oxygen Delivery Method Room Air 05/10/23 08:17 05/10/23 09:17 05/10/23 11:00 Temperature Temperature Source Pulse Rate 67 68 62 Respiratory Rate 20 H 20 H 14 Respiratory Effort Blood Pressure 169/79 H 171/81 H 162/89 H Blood Pressure Mean 109 111 113 Pulse Ox 93 93 93 Oxygen Delivery Method Room Air Room Air Room Air Positive well nourished and well developed General Appearance ED: well developed and NAD; Negative for cyanotic, diaphoretic or pallor HEENT Reports moist mucous membranes HEENT Narrative: Head is atraumatic normocephalic. Ears are normal. Nares are patent. Posterior pharynx is normal. 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 Patient was asked if she has problems with her thyroid and she informing that she has history of goiter. General Eye ED: Negative for pale conjunctiva or scleral icterus Neck no lymphadenopathy, supple and no JVD Chest Wall inspection of chest normal and palpation of chest normal Resp normal respiratory effort and No clear to auscultation bilaterally Auscultation: rales right base Cardio regular rate, regular rhythm, S1 normal heart sound, S2 normal heart sound and no murmurs GI normal to inspection, nondistended, normoactive bowel sounds, non-tender, non-distended and no masses; Negative for hepatosplenomegaly GI Narrative: There is no palpable pulsatile mass. There is no abdominal bruit. Back/Spine no CVA tenderness Back/Spine Narrative: Inspection of the back is remarkable for scar. She had a fusion. Thoracic Spine / Upper Back: Negative for thoracic spinal tenderness Lumbar Spine / Lower Back: Negative for lumbar spinal tenderness Extremity Negative for normal to inspection Extremity Narrative: Patient has mild pitting edema bilaterally. There are several bruises noted. General Extremety ED: Yes edema General Extremity: edema Neuro oriented x3, CN's II-XII intact bilaterally and no sensory deficits noted Sensorium / Orientation: alert Motor Exam: strength 5/5 throughout Psych Mood & Affect: depressed Skin no rashes or lesions noted Skin Narrative: Multiple bruises lower extremity. General Skin Exam: Negative for jaundice or pallor MDM MDM MDM Narrative Medical decision making narrative: Patient with atypical chest pain. In light of her risk factors will obtain EKG and troponin. Since she has had pain constantly for 1 week only 1 troponin was obtained. This may be due to afterload since she does have a markedly elevated blood pressure. If it remains elevated will treat especially since she admits to noncompliance. Since there is some slight discomfort in the upper abdomen it may be due to GERD versus liver disease will obtain hepatic and lipase. Lab Data Attestation: I reviewed the patient's lab results. Lab results narrative: White count is slightly elevated with slight shift. H&H is unremarkable. Comprehensive metabolic panel is remarkable slight elevation of creatinine of 1.25 with a GFR of 43. Lipase is normal. Troponin with 1 week of pain is normal at 12. Labs: Laboratory Results - last 24 hr 05/10/23 07:30 WBC 11.3 H RBC 3.97 L Hgb 12.1 Hct 38.1 MCV 96.0 MCH 30.5 MCHC 31.8 L RDW Std Deviation 55.8 H RDW Coeff of Tom 15.7 H Plt Count 279 MPV 8.5 Immature Gran % (Auto) 1.700 H Neut % (Auto) 82.2 H Lymph % (Auto) 9.4 L Bosque % (Auto) 5.9 Eos % (Auto) 0.4 Baso % (Auto) 0.4 Absolute Neuts (auto) 9.3 H Absolute Lymphs (auto) 1.06 Nucleated RBC % 0 Sodium 137 Potassium 3.8 Chloride 109 H Carbon Dioxide 24.0 Anion Gap 4 L BUN 23 H Creatinine 1.25 H Estim Creat Clear Calc 29.61 Est GFR (MDRD) Af Amer 52 L Est GFR (MDRD) Non-Af 43 L BUN/Creatinine Ratio 18.4 Glucose 121 H Calcium 8.5 Total Bilirubin 0.50 AST 15 ALT 30 Alkaline Phosphatase 81 Troponin I High Sens 12 Total Protein 7.3 Albumin 2.8 L Globulin 4.5 H Albumin/Globulin Ratio 0.6 L Lipase 23 Radiography Chest X-Ray - ED: 1 View and Read by ED Physician (Independently reviewed by me at 0800 as negative for any acute process. Patient has a stents noted. Cardiac silhouette size is unremarkable. Lung parenchyma reveals mild chronic changes. Perihilar region is unremarkable.) Diagnostic Testing: Clinical Impression(s) from Imaging Studies Chest X-Ray 05/10/23 07:35 IMPRESSION: No acute cardiopulmonary process identified. Electronically Signed: Maricel Easley MD at 8:29 EDT Reading Location ID and State: [facility] / [place] Tel , Service support , Treatment and Re-Evaluation :: called out because was having pain. By the time the nurse got to her bed her pain had resolved. Since her work-up is unremarkable other than the elevated blood pressure we will treat her abdominal pain with IV Pepcid and Bentyl since the pain is colicky in nature. And since her blood pressure is still elevated with a systolic of 190 she will receive oral meds for her blood pressure. Patient was reassessed at 1000. Patient still complain of epigastric pain. GI cocktail was ordered. Blood pressure is 192 systolic. Additional dose of clonidine was ordered and her dose of hydralazine of 100 mg was ordered. Patient was reassessed at 1152. Her abdominal pain has improved after Pepcid. It did not resolve. Patient's blood pressure is now 162/89. Patient was told the importance of taking her blood pressure medicines especially since she has a history of aortic dissection. Discharge Plan Triage Chief Complaint: Chest Pain ED Provider: Aden Glasgow Dx/Rx/DC Orders Clinical Impression: Accelerated essential hypertension, Hyperlipemia, mixed, Hx of repair of dissecting thoracic aortic aneurysm, Veteran type B, Atherosclerotic vascular disease, COPD (chronic obstructive pulmonary disease), Central chest pain, Acute epigastric pain Instructions: ED Hypertension, Established, ED Epigastric Pain Uncertain Cause Prescriptions: No Action biotin 10,000 mcg capsule 10,000 mcg PO TID labetalol 200 mg tablet 300 mg PO TID clonidine HCl 0.3 mg tablet 0.3 mg PO TID hydralazine 100 mg tablet 100 mg PO Q6H docusate sodium 100 mg tablet 200 mg PO BID lisinopril 10 mg tablet 10 mg PO DAILY zinc 50 mg tablet 50 mg PO DAILY cholecalciferol (vitamin D3) 50 mcg (2,000 unit) capsule 50 mcg PO DAILY calcium citrate 250 mg calcium tablet 250 mg PO BID glucosamine-chondroitin 900 mg tablet 900 mg PO BID Bevespi Aerosphere 9-4.8 mcg HFA aerosol inhaler 2 puff inhalation QAM AND QPM Qty: 1 3RF (DME) spacer See Rx Instructions .ROUTE .MEDSUPPLY Qty: 1 0RF Rx Instructions: As directed valacyclovir [Valtrex] 500 mg tablet 500 mg PO Q12H Qty: 6 0RF alendronate 70 mg tablet 70 mg PO PATINO omeprazole 20 MG capsule,delayed release(DR/EC) 20 mg PO DAILY cyanocobalamin (vitamin B-12) 5,000 MCG capsule 5,000 mcg PO DAILY amlodipine 10 mg tablet 10 mg PO DAILY multivitamin Tablet 1 tab PO DAILY turmeric root extract 500 mg Tablet 500 mg PO DAILY omega-3 fatty acids 1,000 mg capsule 1,000 mg PO TID duloxetine 30 mg capsule,delayed release(DR/EC) 30 mg PO BID Patient Comments: TAKE 1 CAPSULE BY MOUTH TWICE A DAY pravastatin 40 mg tablet 40 mg PO QHS Qty: 30 11RF Eliquis 5 mg tablet 5 mg PO BID Qty: 60 0RF alprazolam [Xanax] 0.25 mg tablet 0.25 mg PO DAILY PRN (Reason: anxiety) Qty: 30 0RF Primary Care Provider: Natasha Louis Referrals: Natasha Louis MD [Primary Care Provider] - 1 Week Activity Restrictions/Additional Instructions: 1. You have to take your medicine as prescribed. It is very important not to miss any of your blood pressure medicines. You should never miss any dose of your clonidine because this can cause a rebound hypertension. Disposition Disposition: Home, Self Care
[2023-05-10 08:06] LABS: ALB/GLOB Ratio 0.6 RATIO (0.9-2.4); AST(SGOT) 15 U/L (15-37); Alanine Aminotransfer ALT/SGPT 30 U/L (13-56); Albumin, Serum 2.8 g/dL (3.2-5.0); Alkaline Phosphatase 81 U/L (45-117); Anion Gap 4 (5-15); BUN 23 mg/dL (7-18); BUN/Creat Ratio 18.4 RATIO (10-20); Calcium,Total 8.5 mg/dL (8.5-10.1); Chloride 109 mmol/L (98-107); Creatinine, Serum 1.25 mg/dL (0.55-1.02); EST Glomerular Filtration Rate 43 mL/min (>60); Est Glom Filt Rate - Afr Amer 52 mL/min (>60); Estimated Creatinine Clearance 29.61 ml/min; Globulin 4.5 g/dL (2.2-4.2); Glucose 121 mg/dL (74-106); Lipase 23 U/L (13-75); Potassium 3.8 mmol/L (3.5-5.1); Protein, Total 7.3 g/dL (6.4-8.2); Sodium Level 137 mmol/L (136-145); Troponin-I HS 12 pg/mL (3.0-54.0)
[2023-05-10 08:17] VITALS: BP 169/79; PULSE 67; RESP 20; O2SAT 93
[2023-05-10 09:17] VITALS: BP 171/81; PULSE 68; RESP 20; O2SAT 93
[2023-05-10] MEDS: Dicyclomine 10 MG Capsule 20 MG PO (09:21)
[2023-05-10] MEDS: Labetalol 200 MG Tablet PO (09:21)
[2023-05-10] MEDS: cloNIDine HCl 0.1 MG Tablet PO ×2 (09:21→10:41)
[2023-05-10] MEDS: Famotidine 200 MG/20 ML MDV 20 MG in 0.9% Normal Saline (Pres. free 8 ML 300 MG IV (09:21)
[2023-05-10] MEDS: hydrALAZINE 50 MG Tablet 100 MG PO (10:41)
[2023-05-10] MEDS: Mag Hydrox/Al Hydrox/Simeth 30 ML UDC PO (10:41)
[2023-05-10 11:00] VITALS: BP 162/89; PULSE 62; RESP 14; O2SAT 93
[2023-05-10 12:29] VITALS: BP 138/66; RESP 16
== END 2023-05-10 12:30 | disposition home or self-care (01) ==
PROVIDERS: Emergency Provider Emergency Medicine; PCP Internal Medicine; Visit Provider Emergency Medicine
DX: I10 Essential (primary) hypertension (principal); C83.30 Diffuse large B-cell lymphoma, unspecified site; J44.9 Chronic obstructive pulmonary disease, unspecified; R07.89 Other chest pain; Z87.891 Personal history of nicotine dependence; E78.2 Mixed hyperlipidemia; R10.13 Epigastric pain; E04.9 Nontoxic goiter, unspecified; Z79.899 Other long term (current) drug therapy; Z86.718 Personal history of other venous thrombosis and embolism; Z79.01 Long term (current) use of anticoagulants; R60.0 Localized edema; R06.00 Dyspnea, unspecified; M54.50 Low back pain, unspecified; F32.A Depression, unspecified; Z91.148 Patient's other noncompliance with medication regimen for other reason; I25.10 Atherosclerotic heart disease of native coronary artery without angina pectoris
CPT/HCPCS: 71045; 80053; 83690; 84484; 85025; 93005; 96374; 99285; A4216; J3490

== ENCOUNTER → 2023-05-14 | Outpatient (CLI) | payer MEDICARE, SELFPAY ==
[2023-05-14 13:45] VITALS: PULSE 600; PULSE 64; PULSE 70; PULSE 76; PULSE 81; PULSE 84; PULSE 89; O2SAT 91; O2SAT 92; O2SAT 93; O2SAT 94; O2SAT 95
--- NOTE | 2023-05-14 14:09 | CPS ---
Pt needed to take a rest at minute 2 until 3rd minute. Pt started walk back up and took another break at minute 5 until 6th minute. Pt C/O being S.O.B and was instructed how to use pursed lip breathing during her rest periods. Pt rated her S.O.B at her breaks as an 8 out of 10.
--- NOTE | 2023-05-15 08:07 | PCM.PSN.6M ---
PSN 6 Minute Walk Test 6 Minute Walk Test 6 Minute Walk Test: 6 Minute Walk Test PSN:6-Minute Walk Test Start: 05/14/23 14:06 Freq: Status: Active Protocol: [id number] Document 05/14/23 13:45 AEH (Rec: 05/14/23 14:14 AE Desktop) 6 Minute Walk Test Date Performed 05/14/23 Time Performed 12:45 Height 5 ft 5 in Weight: 155 lb Weight in Pounds 155.[address]: Tamara Assistive device used: Walker Pre-test Oxygen Delivery Method Room Air Pulse Ox 93 Pulse Rate (60-100) 600 H Dyspnea Tae Scale (0-10) 6 1st minute Oxygen Delivery Method Room Air Pulse Ox 92 Pulse Rate (60-100) 64 2nd minute Oxygen Delivery Method Bi-pap Pulse Ox 91 Pulse Rate (60-100) 84 Dyspnea Tae Scale (0-10) 8 Number of Rests Taken 1 Reported Symptoms Increased Work of Breathing 3rd minute Oxygen Delivery Method Room Air Pulse Ox 92 Pulse Rate (60-100) 81 Dyspnea Tae Scale (0-10) 8 Number of Rests Taken 1 Reported Symptoms Increased Work of Breathing 4th minute Oxygen Delivery Method Room Air Pulse Ox 94 Pulse Rate (60-100) 89 5th minute Oxygen Delivery Method Room Air Pulse Ox 92 Pulse Rate (60-100) 81 Dyspnea Tae Scale (0-10) 8 Reported Symptoms Increased Work of Breathing 6th minute Oxygen Delivery Method Room Air Pulse Ox 93 Pulse Rate (60-100) 76 Dyspnea Tae Scale (0-10) 8 Number of Rests Taken 1 Reported Symptoms Increased Work of Breathing Post-test Oxygen Delivery Method Room Air Pulse Ox 95 Pulse Rate (60-100) 70 Full Laps Walked 8 Partial Lap, Number of Tiles Walked 36 Total Distance Walked (ft) 508 05/14/23 14:09 Cardiopulmonary Services by Suzanne Lopez Pt needed to take a rest at minute 2 until 3rd minute. Pt started walk back up and took another break at minute 5 until 6th minute. Pt C/O being S.O.B and was instructed how to use pursed lip breathing during her rest periods. Pt rated her S.O.B at her breaks as an 8 out of 10. Initialized on 05/14/23 14:09 - END OF NOTE Interpretation Interpretation: The patient ambulated 508 feet over the course of 6 minutes beginning on room air with use of a walker. Pretesting oxygen saturation was noted to be 93% on room air. With ambulation, the emily oxygen saturation was 91%. There was no significant exertional oxygen desaturation. Recommendations Recommendations: There is no indication for the use of supplemental oxygen at this time.
== END | disposition home or self-care (01) ==
LOC: PSN 13:44
PROVIDERS: PCP Internal Medicine; Referring Provider Nurse Practitioner Acute Care; Visit Provider Nurse Practitioner Acute Care
DX: J44.9 Chronic obstructive pulmonary disease, unspecified (principal)
CPT/HCPCS: 94618

== ENCOUNTER → 2023-06-11 | Outpatient (CLI) | payer MEDICARE, SELFPAY ==
[2023-06-11 12:54] LABS: Anion Gap 7 (5-15); BUN 28 mg/dL (7-18); BUN/Creat Ratio 19.7 RATIO (10-20); Calcium,Total 8.6 mg/dL (8.5-10.1); Chloride 105 mmol/L (98-107); Creatinine, Serum 1.42 mg/dL (0.55-1.02); EST Glomerular Filtration Rate 37 mL/min (>60); Est Glom Filt Rate - Afr Amer 45 mL/min (>60); Glucose 99 mg/dL (74-106); Potassium 3.3 mmol/L (3.5-5.1); Sodium Level 139 mmol/L (136-145)
== END | disposition home or self-care (01) ==
LOC: LAB 11:37
PROVIDERS: PCP Internal Medicine; Visit Provider Nurse Practitioner Family
DX: I51.89 Other ill-defined heart diseases (principal); Z51.81 Encounter for therapeutic drug level monitoring; Z79.899 Other long term (current) drug therapy
CPT/HCPCS: 36415; 80048

== ENCOUNTER → 2023-06-11 | Outpatient (CLI) | payer MEDICARE, SELFPAY | END | disposition home or self-care (01) | LOC: SL 11:39 | PROVIDERS: PCP Internal Medicine; Referring Provider Nurse Practitioner Acute Care; Visit Provider Nurse Practitioner Acute Care | DX: I51.89 Other ill-defined heart diseases (principal); Z51.81 Encounter for therapeutic drug level monitoring; Z79.899 Other long term (current) drug therapy; Z99.89 Dependence on other enabling machines and devices | CPT/HCPCS: 36415; 80048; 98960; G0463 ==

== ENCOUNTER 2023-06-13 13:02 | Outpatient (RCR) | payer MEDICARE, SELFPAY ==
--- NOTE | 2023-06-13 13:46 | HP.PTEVAL ---
Patient's Visit Information Visit Information Visit Information: DANAE KYLE is a 83 year old F referred to Physical Therapy by Dr. Natasha Louis MD with a diagnosis of recurrent falls. Date of Evaluation: 06/13/23 Physical Therapist: Newton Fong, DPT, OCS, CSCS Visit Plan Frequency: 2x /Week Duration: 4-6 Weeks Plan: 2x/week for 4-6 weeks for 1. teach home based safe balance ex for improving VOR and eyesight balance with pics. 2. Teach gym based LE adn core strength adn work to I if safety allows. If unsafe then we can work to a home based HEP. Pt will need wh walker at all times. has been taught home program in past and does not stay compliant, wants to try gym. Subjective Subjective: Dr. Louis wants her back in because she does not have much strength. Falls often. Feels weaker than last time she came in. Not sure why she is getting weaker. US for blood clot was negative. No medical reason for getting weaker. 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 Has to rest from cooking. cooks the meals. sits in chair and reads alot. Sleep is Ok and no naps. No regular exercises. Knows she should. Falling now and then. Last time Nov 4 one time in the shower and fell again later while using walker. Has new shower and has bench but she slipped off of it. Fell sideways at the walker and not sure why. Fell one time sliding off chair in bedroom after sitting on the edge. Lives with in one floorwith 3 steps to enter which are no problem. Uses wh walker all the time and has for 4 yrs. 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 Not DM. No spinning. Feels unsteady on feet intermittently. Objective Objective: 94% spO2 after ambulating 50 feet with wh walker and mild SOB, recovers quickly with sitting. Ambulates with wh walker 300 feet to eval room and [facility] mod [facility] and bed I albeit slow. Steps with two rails and weak but able. Able to ambulate without AD only with CGA and not safe. L hip very unstable without walker and will not hold pelvis in position in L WB. LE AROM WFL, tightness in quad and HS apparent but able to move reflexes 1/3 patella and achilles B Sensation seems diminished to gross light touch in B feet consistent with her neuroapthy. strength 3+ ankles, 3+ knees, 3 hip abd and ext and 3+ flexion. Symmetrical. coordination to reciprocal toe and heel tap is fair. There is neuropathy in her gait pattern. Balance/Special Test Scores Functional Gait Assessment Score: 15 % Disability: 50.0000 Lower Extremity Functional Score: 28 TUG Test Time Seconds: 17 30 Second Chair Rise Test Seconds: 10 Goals Goal 1:: 12 30 sec sit to stand and 14 or better on TUG to show improved mobility Goal Time Frame: 4-6 Weeks Goal 2:: 20 on FGa to improve balance and safety Goal Time Frame: 4-6 Weeks Goal 3:: I approp gym or Home based ex program for strength and balance Goal Time Frame: 4-6 Weeks Rehabilitation Potential Physical Therapy Diagnosis: weakness and proprioceptive problems effecting safety and mobility Rehabilitation Potential: Questionable Anticipated Interventions Patient/Client Instruction: Educate patient on: Condition and Risk Factors For the Purpose of:: To improve gait and locomotor functions and To improve safety Therapeutic Exercise to Include: Strength training and Balance training For the Purpose of:: To improve nutrient delivery to tissue, To improve muscle performance and motor function, To increase tolerance to activity/condition/position, To improve gait and locomotor functions and To improve safety Text: Thank you for the opportunity to evaluate your patient. For Medicare and Medicare HMO plans, please review the plan of care and approve it. It will need to be FAXED BACK to us at [phone] for Medicare purposes. For Medicare only, by signing this I certify the plan of care. Please let me know if there are questions or concerns regarding this plan of care. Physician Signature: Date:
--- NOTE | 2023-07-16 11:23 | HP.PT.NRP ---
Patient Information Patient Information: DANAE KYLE was seen in my office for initial evaluation on 06/13/23. The following Plan of Care was established for this patient: POC Established Initial Frequency: 2x /Week Initial Duration: 4-6 Weeks Anticipated Interventions Patient/Client Instruction: Educate patient on: Condition and Risk Factors For the Purpose of:: To improve gait and locomotor functions and To improve safety Therapeutic Exercise to Include: Strength training and Balance training For the Purpose of:: To improve nutrient delivery to tissue, To improve muscle performance and motor function, To increase tolerance to activity/condition/position, To improve gait and locomotor functions and To improve safety Last Seen Last Seen: This patient was last seen in our office 06/13/23. Pertinent comments regarding their Physical therapy will appear below: Pt called to cancel her appointments as she is in hospice care. At this point I will be discontinuing this patient from physical therapy. I would be happy to see this patient again in the future if found appropriate by the physician. Thank you! Newton Fong, DPT, OCS, CSCS Balance/Gait/Functional tests Balance/Special Test Scores Functional Gait Assessment Score: 15 % Disability: 50.0000 Lower Extremity Functional Score: 28 TUG Test Time Seconds: 17 Tug Test: <20 sec.=mostly independent 30 Second Chair Rise Test Seconds: 10
== END 2023-06-13 19:00 | disposition home or self-care (01) ==
LOC: PT 13:02
PROVIDERS: PCP Internal Medicine; Visit Provider Internal Medicine
DX: R29.6 Repeated falls (principal)
CPT/HCPCS: 97162

== ENCOUNTER → 2023-06-13 | Outpatient (CLI) | payer MEDICARE, SELFPAY ==
--- NOTE | 2023-06-13 09:54 | VDLE_ITS ---
Reason For Study: swelling RIGHT LEFT GSV is normal. CFV is compressible, spontaneous, phasic, CFV is compressible, spontaneous, phasic, competent, and demonstrates normal competent and demonstrates normal augmentation. augmentation. FV is compressible, spontaneous, phasic, competent and demonstrates normal augmentation. POP V is compressible, spontaneous, phasic, competent and demonstrates normal augmentation. T/P Trunk is compressible. PTV is compressible. RT PerV is compressible. Procedure This is a venous duplex using B-mode, color flow and spectral Doppler. Exam performed in department. The exam was diagnostic. A preliminary report was called and/or faxed to Dr. Louis. VL/Venous Duplex US, Unilateral Interpretation Summary There is no evidence of right lower extremity deep vein thrombosis. Right great saphenous vein appears patent and compressible segmentally. Normal flow patterns left common f emoral vein Ordering Physician: Natasha Louis Performed By: Iker Stone RVT
== END | disposition home or self-care (01) ==
LOC: CVS 09:53
PROVIDERS: PCP Internal Medicine; Referring Provider Internal Medicine; Visit Provider Internal Medicine
DX: M79.89 Other specified soft tissue disorders (principal); Z86.718 Personal history of other venous thrombosis and embolism
CPT/HCPCS: 93971

== ENCOUNTER → 2023-06-14 | Outpatient (CLI) | payer MEDICARE, SELFPAY | END | disposition home or self-care (01) | LOC: SL 10:50 | PROVIDERS: PCP Internal Medicine; Referring Provider Internal Medicine; Visit Provider Internal Medicine | DX: Z00.00 Encounter for general adult medical examination without abnormal findings (principal) ==

== ENCOUNTER → 2023-06-24 | Outpatient (CLI) | payer MEDICARE, SELFPAY | END | disposition home or self-care (01) | LOC: SL 12:17 | PROVIDERS: PCP Internal Medicine; Visit Provider Nurse Practitioner Acute Care | DX: Z00.00 Encounter for general adult medical examination without abnormal findings (principal) ==

== ENCOUNTER → 2023-07-16 | Outpatient (CLI) | payer MEDICARE, SELFPAY ==
--- NOTE | 2023-07-16 12:35 | BD_ITS ---
STUDY: DUAL ENERGY X-RAY ABSORPTIOMETRY / DXA REASON FOR EXAM: Female, 83 years old. Osteoporosis TECHNIQUE: Bone Mineral Density (BMD) measurements of right hip and right forearm were obtained. COMPARISON: Comparison is made with prior study dated July 13, 2021. FINDINGS: Right Femur Total: g/cm2 (0.661) / T-score (-2.3) / Z-score (0.0) Right Femoral Neck: g/cm2 (0.559) / T-score (-2.6) / Z-score (-0.1) Right Forearm: g/cm2 (0.525) / T-score (-1.0) / Z-score ( ) The T-Scores on the most recent prior examination were: Right Femur Total: which represents an improvement of 3.9%. BD/Dexa Bone Density Study IMPRESSION: The patient is considered osteoporotic as outlined below according to World Joey Organization (WHO) criteria with a high fracture risk. There has been improvement of bone density since the previous examination. Reference Information: The T-score is the number of standard deviations above or below the standard which is normal for young adults at their peak bone mineral density. The World Health Organization (WHO) interprets the T-scores as follows: Above -1 Normal bone density Between -1 and -2.5 Osteopenia Equal to / or below -2.5 Osteoporosis As a practical clinical guideline, osteopenia may be graded as follows: Mild -1 through -1.5 Moderate -1.6 through -2.0 Severe -2.1 through -2.4 The Z-score is the number of standard deviations above or below age-matched controls. A Z-score of less than -1.5 would be considered abnormal. References: 1. NIH Osteoporosis and Related Bone Diseases www osteo.org 2. International Society for Clinical Densitometry www iscd.org 3. National Osteoporosis Foundation www nof.org Electronically Signed: Selvin Price MD at 14:51 EST ,
--- OUTSIDE RECORDS SUMMARY | 2023-07-16 12:57 | XMS RPT_ITS | CCD ---
Author Name Unknown Address [address] [place] [address] Organization [facility] Care Team Providers Care Loader Helper Name Role Phone Jose CORONEL, Guera Ku Unavailable [phone] Trino COIL WRAPPER, Lars Castillo Unavailable Shelley RODRIGUEZ, Trent Marin Unavailable Jose CORONEL, Guera Ku Unavailable JACQUELINE DAWSON Unavailable Unavailable PROVIDER, UNKNOWN Attending Unavailable PROVIDER, UNKNOWN Admitting Unavailable LESLIE NARVAEZ Referring Unavailable Logan Chinchilla MD Primary Care Provider Leslie Narvaez MD Unavailable [phone] Logan Chinchilla MD Primary Care Provider [phone] INEZ DAVIES Referring Unavailab MARI Hinson Admitting Unavailable MARI LAND Attending Unavailable LOGAN CHINCHILLA [facility] Unavailable DANNA ZALDIVAR Attending Unavailable DANNA ZALDIVAR Referring Unavailable LOGAN CHINCHILLA [facility] Unavailable LOGAN CHINCHILLA [facility] Unavailable DANNA ZALDIVAR Referring Unavailable LOGAN CHINCHILLA [facility] Unavailable INEZ DAVIES Referring Unavailab NELSON Hanna Attending Unavailable INEZ DAVIES Referring Unavailab LOGAN Villareal [facility] Unavailable INEZ DAVIES Attending Unavailab LOGAN Villareal [facility] Unavailable LOGAN CHINCHILLA [facility] Unavailable INEZ DAVIES Referring Unavailab DANNA Broderick Referring Unavailable LOGAN CHINCHILLA Primary [facility] Unavailable INEZ DAVIES Attending UnavailLeslie Garcia MD Unavailable [phone] Allergies Allergy Classification Reported Allergen(s) Allergy Type Date of Onset Reaction(s) Facility (20 sources) Bisoprolol; Translations: [BISOPROLOL] Drug Allergy 3 Other: See Comments, Other [facility] Work Phone: (16 sources) Codeine; Translations: [CODEINE] Drug Allergy 4 Other: See Comments, Other [facility] Work Phone: (8 sources) levoFLOXacin Drug Allergy 5 Rash [facility] Work Phone: (16 sources) meloxicam; Translations: [MELOXICAM] Drug Allergy 4 Unknown, Other [facility] Work Phone: (8 sources) CODEINE COUGH SYRUP drug allergy 5 Elevated BP [facility] Work Phone: (8 sources) SULFONAMIDE ANTIBIOTICS drug allergy 5 Hives [facility] Work Phone: (12 sources) levoFLOXacin; Translations: [LEVOFLOXACIN] Drug Allergy 4 Rash, [facility] Repository (9 sources) Sulfonamides (Antibiotic); Translations: [SULFA (SULFONAMIDE ANTIBIOTICS)] Propensity to adverse reactions to drug (disorder) 4 [facility] Repository (3 sources) Sulfonamides (Antibiotic); Translations: [SULFA ANTIBIOTICS] Propensity to adverse reactions to drug (disorder) 4 [facility] Repository (8 sources) sulfaSALAzine; Translations: [SULFASALAZINE] Drug Allergy 4 [facility] Medications Current Medications Medication Drug Class(es) Dates Sig (Normalized) Sig (Original) atenolol 25 mg oral tablet (14 sources) beta-Adrenergic Ivy Start: 12-04-2012 atenolol (TENORMIN) 25 MG tablet Indications: Post laminectomy syndrome , S/P lumbar fusion Take 25 mg by mouth. 0 12/04/2012 Active ABM-MRW-UKPSIER E ORAL (2 sources) [id number] E ORAL Indications: Post laminectomy syndrome , S/P lumbar fusion Take by mouth. 0 Active docusate sodium 100 mg oral capsule (9 sources) Start: 05-03-2017 take 1 capsule by mouth twice daily docusate sodium (COLACE) 100 MG capsule Take 1 Capsule by mouth 2 times daily. 60 Capsule 3 05/03/2017 Active Completed/Discontinued Medications Medication Drug Class(es) Dates Sig (Normalized) Sig (Original) acetaminophen 325 mg oral tablet (9 sources) Start: 08-08-2018 take 2 tablets by mouth every four hours as needed acetaminophen (TYLENOL) 325 mg tablet Take 2 tablets by mouth every 4 hours as needed for Pain. 0 08/08/2018 Active Problems Active Problems Problem Classification Problem Date Documented Date Episodic/Chronic Aortic; peripheral; and visceral artery aneurysms (15 sources) Dissection of thoracoabdominal aorta; Translations: [Dissection of aorta] Onset: 07-23-2018 08-07-2018 Chronic Cardiac dysrhythmias (4 sources) Bradycardia; Translations: [Bradycardia, unspecified] Onset: 04-16-2017 04-16-2017 Chronic Disorders of lipid metabolism (4 sources) Hyperlipidemia; Translations: [Hyperlipidemia, unspecified] Onset: 09-07-2014 09-07-2014 Chronic Esophageal disorders (7 sources) Gastroesophageal reflux disease; Translations: [Gastro-esophageal reflux disease without esophagitis] Onset: 09-04-2018 09-08-2018 Chronic Essential hypertension (13 sources) Hypertensive disorder; Translations: [Essential (primary) hypertension] Onset: 08-10-2014 09-07-2014 Chronic Heart valve disorders (20 sources) Tricuspid incompetence, non-rheumatic ; Translations: [Aortic valve disorder] Onset: 06-03-2015 09-12-2016 Chronic Lymphadenitis (1 source) Localized enlarged lymph nodes; Translations: [Localized enlarged lymph nodes] Onset: 07-23-2018 Episodic Non-Hodgkin`s lymphoma (14 sources) Diffuse non-Hodgkin's lymphoma, large cell (clinical); Translations: [Diffuse large B-cell lymphoma, unspecified site] Onset: 07-05-2009 07-05-2009 Chronic Osteoarthritis (4 sources) Osteoarthritis of knee; Translations: [Osteoarthritis of knee, unspecified] Onset: 08-25-2014 08-25-2014 Chronic Other bone disease and musculoskeletal deformities (3 sources) Adolescent idiopathic scoliosis of thoracolumbar spine; Translations: [Adolescent idiopathic scoliosis, thoracolumbar region] Chronic Other bone disease and musculoskeletal deformities (1 source) Adolescent idiopathic scoliosis, thoracolumbar region; Translations: [Adolescent idiopathic scoliosis of thoracolumbar region] Onset: 11-28-2021 Chronic Other circulatory disease (1 source) Disorder of arteries and arterioles, unspecified; Translations: [Disorder of artery or arteriole (HCC)] Onset: 09-21-2021 Chronic Other connective tissue disease (2 sources) History of total hip arthroplasty; Translations: [Presence of unspecified artificial hip joint] Onset: 12-26-2015 12-26-2015 Chronic Other nervous system disorders (2 sources) Chronic pain; Translations: [Other chronic pain] Onset: 05-01-2017 05-01-2017 Chronic Other nervous system disorders (2 sources) Chronic pain syndrome; Translations: [Chronic pain syndrome] 05-02-2017 Chronic Peripheral and visceral atherosclerosis (11 sources) Atherosclerosis of renal artery; Translations: [Renal artery stenosis] Onset: 10-05-2014 10-05-2014 Chronic Residual codes; unclassified (4 sources) Obstructive sleep apnea syndrome; Translations: [Obstructive sleep apnea (adult) (pediatric)] Onset: 09-07-2014 09-07-2014 Chronic Residual codes; unclassified (7 sources) Sleep apnea; Translations: [Sleep apnea, unspecified] Onset: 09-04-2018 09-08-2018 Chronic Spondylosis; intervertebral disc disorders; other back problems (3 sources) Post-laminectomy syndrome; Translations: [Postlaminectomy syndrome, not elsewhere classified] Onset: 10-28-2015 04-25-2017 Chronic Unclassified (4 sources) Long-term drug therapy; Translations: [Long-term (current) use of other medications] Onset: 09-07-2014 09-07-2014 Past or Other Problems Problem Classification Problem Date Documented Date Episodic/Chronic Acute and unspecified renal failure (7 sources) Acute injury of kidney; Translations: [Acute kidney failure, unspecified] Onset: 07-25-2018 09-08-2018 Episodic Coma; stupor; and brain damage (2 sources) Drowsy; Translations: [Somnolence] Onset: 05-01-2017 05-01-2017 Episodic Complication of device; implant or graft (4 sources) Mechanical complication of internal orthopedic device, implant AND/OR graft; Translations: [Breakdown (mechanical) of internal fixation device of vertebrae, initial encounter] Onset: 11-28-2021 Episodic Fluid and electrolyte disorders (6 sources) Hypokalemia; Translations: [Hypokalemia] Onset: 09-07-2014 09-07-2014 Episodic Genitourinary symptoms and ill-defined conditions (2 sources) Retention of urine; Translations: [Retention of urine, unspecified] Onset: 05-01-2017 05-01-2017 Episodic Heart valve disorders (8 sources) Heart murmur; Translations: [Cardiac murmur, unspecified] Onset: 09-09-2014 Resolved: 02-08-2016 09-09-2014 Episodic Other and unspecified benign neoplasm (7 sources) History of polyp of colon; Translations: [Personal history of colonic polyps] Onset: 06-16-2015 06-16-2015 Episodic Other and unspecified benign neoplasm (1 source) Hemangioma of intra-abdominal structures; Translations: [Hemangioma of intra-abdominal structure] Onset: 09-21-2021 Episodic Other circulatory disease (4 sources) Carotid bruit; Translations: [Other specified symptoms and signs involving the circulatory and respiratory systems] Onset: 02-13-2016 02-13-2016 Episodic Other connective tissue disease (2 sources) History of lumbar fusion; Translations: [Arthrodesis status] Onset: 10-28-2015 10-28-2015 Episodic Other lower respiratory disease (4 sources) Dyspnea; Translations: [Dyspnea, unspecified] Onset: 02-13-2016 02-13-2016 Episodic Other nervous system disorders (7 sources) Postoperative pain ; Translations: [Other acute postprocedural pain] Onset: 08-04-2018 09-08-2018 Episodic Other non-traumatic joint disorders (4 sources) Knee pain; Translations: [Pain in right knee] Onset: 08-25-2014 08-25-2014 Episodic Other non-traumatic joint disorders (4 sources) Knee joint effusion; Translations: [Effusion, right knee] Onset: 08-25-2014 08-25-2014 Episodic Other nutritional; endocrine; and metabolic disorders (4 sources) Body mass index (BMI) 25.0-25.9, adult; Translations: [Body mass index (BMI) 25.0-25.9, adult] Onset: 09-21-2016 09-21-2016 Episodic Other screening for suspected conditions (not mental disorders or infectious disease) (4 sources) Tomography - chest abnormal; Translations: [Other nonspecific abnormal finding of lung field] Onset: 07-04-2015 07-04-2015 Episodic Other upper respiratory disease (4 sources) Nasal congestion; Translations: [Nasal congestion] Onset: 09-03-2016 09-03-2016 Episodic Pleurisy; pneumothorax; pulmonary collapse (7 sources) Atelectasis; Translations: [Atelectasis] Onset: 07-30-2018 09-07-2018 Episodic Residual codes; unclassified (4 sources) Edema; Translations: [Edema, unspecified] Onset: 09-07-2014 09-07-2014 Episodic Residual codes; unclassified (4 sources) Family history of ischemic heart disease and other diseases of the circulatory system; Translations: [Family history of ischemic heart disease and other diseases of the circulatory system] 09-09-2014 Episodic Spondylosis; intervertebral disc disorders; other back problems (14 sources) Spinal stenosis in cervical region; Translations: [Spinal stenosis, cervical region] Onset: 11-08-2021 Episodic Unclassified (8 sources) Acute venous embolism and thrombosis of deep vessels of lower extremity; Translations: [Acute venous embolism and thrombosis of deep vessels of lower extremity] Onset: 09-07-2014 Resolved: 03-07-2015 09-07-2014 Results Test Name Value Interpretation Reference Range Facil ity Vital Signs Date Time Vital Sign Value Performing Clinician Facility 11-28-2021 09:53-0400 Body height 162.6 cm Nelson Walker MD Work Phone: [facility] 11-28-2021 09:53-0400 Body weight 64.41 kg Nelson Walker MD Work Phone: [facility] 11-28-2021 09:53-0400 Diastolic blood pressure 56 mm[Hg] Nelson Walker MD Work Phone: [facility] 11-28-2021 09:53-0400 Heart rate 66 /min Nelson Walker MD Work Phone: [facility] 11-28-2021 09:53-0400 Respiratory rate 16 /min Nelson Walker MD Work Phone: [facility] 11-28-2021 09:53-0400 SaO2% (BldA) [Mass fraction] 96 % Nelson Walker MD Work Phone: [facility] 11-28-2021 09:53-0400 Systolic blood pressure 132 mm[Hg] Nelson Walker MD Work Phone: [facility] 11-27-2021 12:28-0400 Body height 162.6 cm Inez Mitch PA-C Work Phone: [facility] 11-27-2021 12:28-0400 Body weight 64.41 kg Inez Mitch PA-C Work Phone: [facility] 11-27-2021 12:28-0400 Diastolic blood pressure 69 mm[Hg] Inez Mitch PA-C Work Phone: [facility] 11-27-2021 12:28-0400 Heart rate 59 /min Inez Mitch PA-C Work Phone: [facility] 11-27-2021 12:28-0400 Respiratory rate 16 /min Inez Mitch PA-C Work Phone: [facility] 11-27-2021 12:28-0400 SaO2% (BldA) [Mass fraction] 95 % Inez Mitch PA-C Work Phone: [facility] 11-27-2021 12:28-0400 Systolic blood pressure 148 mm[Hg] Inez Mitch PA-C Work Phone: [facility] 04-22-2017 08:28-0400 BMI (Body Mass Index) 25.96 kg/m2 Trent Rosa MD [facility] Work Phone: 04-22-2017 08:28-0400 BP Diastolic 64 mm[Hg] Trent Rosa MD [facility] Work Phone: 04-22-2017 08:28-0400 BP Systolic 130 mm[Hg] Trent Rosa MD [facility] Work Phone: 04-22-2017 08:28-0400 Height 165.1 cm Trent Rosa MD [facility] Work Phone: 04-22-2017 08:28-0400 Pulse (Heart Rate) 64 /min [facility] Work Phone: 04-22-2017 08:28-0400 Respiratory Rate 18 /min Trent Rosa MD [facility] Work Phone: 04-22-2017 08:28-0400 Weight 70.76 kg Trent Rosa MD [facility] Work Phone: 11-07-2016 13:12-0400 BMI (Body Mass Index) 25.96 kg/m2 [facility] Work Phone: 11-07-2016 13:12-0400 Body Temperature 98 [degF] Guera Garcia RN [facility] Work Phone: 11-07-2016 13:12-0400 BP Diastolic 79 mm[Hg] Guera Garcia RN [facility] Work Phone: 11-07-2016 13:12-0400 BP Systolic 166 mm[Hg] Guera Garcia RN [facility] Work Phone: 11-07-2016 13:12-0400 Height 165.1 cm Guera Garcia RN [facility] Work Phone: 11-07-2016 13:12-0400 Pulse (Heart Rate) 57 /min [facility] Work Phone: 11-07-2016 13:12-0400 Respiratory Rate 18 /min Guera Garcia RN [facility] Work Phone: 11-07-2016 13:12-0400 Weight 70.76 kg Guera Garcia RN [facility] Work Phone: 09-03-2016 13:47-0500 Body Temperature 98.06 [degF] [facility] Work Phone: 09-03-2016 13:47-0500 BSA (Body Surface Area) 1.76 m2 Guera Garcia RN [facility] Work Phone: 09-03-2016 13:47-0500 Height 165.1 cm Guera Garcia RN [facility] Work Phone: 09-03-2016 13:47-0500 Weight 69.09 kg Guera Garcia RN [facility] Work Phone: 09-09-2014 15:21-0500 Heart rate 44 /min Guera Garcia RN [facility] Work Phone: Encounters Encounter Date Encounter Type Care Provider Facility Start: 11-25-2022 Letter encounter Leslie pathak MD Work Phone: [facility] Start: 05-03-2022 Telephone encounter Inez Davies PA-C Work Phone: [facility] Procedures Date Procedure Procedure Detail Performing Clinician Start: 11-27-2021 Radex entir thrc lmb r crv sac spi w/skull 2/3 vw Inez Davies PA-C Work Phone: Start: 07-23-2018 Antibody screen JACQUELINE DAWSON Plan of Treatment Date Care Activity Detail Author Start: 03-15-2022 Influenza vaccination INFLUENZA (#1) [facility] Start: 02-13-2022 COVID-19 VACCINE (5 - Booster for Moderna series) COVID-19 VACCINE (5 - Booster for Moderna series) [facility] Start: 12-09-2021 COVID-19 VACCINE (5 - Booster for Moderna series) COVID-19 VACCINE (5 - Booster for Moderna series) [facility] Start: 11-06-2021 DIABETES SCREEN DIABETES SCREEN [facility] Start: 07-15-2021 ADVANCE DIRECTIVE DISCUSSION ADVANCE DIRECTIVE DISCUSSION [facility] Start: 07-15-2021 DEPRESSION ASSESSMENT DEPRESSION ASSESSMENT [facility] Start: 05-03-2018 Basic metabolic 2000 panel - Serum or Plasma Basic Metabolic Panel [facility] Start: 07-03-2017 End: 07-03-2017 Appointment Appointment [facility] Work Phone: Start: 04-22-2017 End: 04-22-2017 Appointment Appointment [facility] Work Phone: Start: 04-16-2017 End: 04-16-2017 24 hour holter monitor 24 hour holter monitor [facility] Work Phone: Start: 11-07-2016 End: 02-20-2017 MARK FLORES [facility] Work Phone: Start: 11-07-2016 End: 02-20-2017 Follow Up Appt 1 year Follow Up Appt 1 year [facility] Work Phone: Start: 09-21-2016 End: 09-21-2016 Follow Up Appt 9 months Follow Up Appt 9 months [facility] Work Phone: Start: 09-21-2016 End: 09-21-2016 PFM PFM [facility] Work Phone: Start: 09-03-2016 End: 10-04-2016 BWMercy FLORES [facility] Work Phone: Start: 09-03-2016 End: 10-04-2016 Follow Up Appt 3 months Follow Up Appt 3 months [facility] Work Phone: Start: 09-03-2016 End: 10-04-2016 Retitration with follow up (patient on CPAP currently) Retitration with follow up (patient on CPAP currently) [facility] Work Phone: Start: 02-13-2016 End: 02-13-2016 Carotid duplex Carotid duplex [facility] Work Phone: Start: 02-13-2016 End: 02-13-2016 Follow Up Appt 6 months Follow Up Appt 6 months [facility] Work Phone: Start: 02-13-2016 End: 02-13-2016 Nuclear stress test -Lexiscan Nuclear stress test -Lexiscan [facility] Work Phone: Start: 02-13-2016 End: 02-13-2016 PFM PFM [facility] Work Phone: Start: 07-04-2015 End: 07-04-2015 CSM [facility] Work Phone: Start: 07-04-2015 End: 07-04-2015 Follow Up Appt 3 months Follow Up Appt 3 months [facility] Work Phone: Start: 07-04-2015 End: 07-04-2015 Pulmonary Function Test - complete Pulmonary Function Test - complete [facility] Work Phone: Start: 06-20-2015 End: 06-20-2015 Follow Up BP Check Follow Up BP Check [facility] Work Phone: Start: 06-03-2015 End: 06-03-2015 Follow Up Appt 6 months Follow Up Appt 6 months [facility] Work Phone: Start: 06-03-2015 End: 06-03-2015 PFM PFM [facility] Work Phone: Start: 03-07-2015 End: 03-07-2015 Follow Up Appt 3 months Follow Up Appt 3 months [facility] Work Phone: Start: 03-07-2015 End: 03-07-2015 PFM PFM [facility] Work Phone: Start: 12-29-2014 End: 12-29-2014 Physical Therapy General Physical Therapy General Rehab [facility], [address] [place] [address], [id number] [facility] Work Phone: Start: 12-10-2014 End: 12-10-2014 Follow Up Appt 3 months Follow Up Appt 3 months [facility] Work Phone: Start: 12-10-2014 End: 12-10-2014 PFM PFM [facility] Work Phone: Start: 10-05-2014 End: 10-05-2014 Vascular Surgery [place], [address] [place] [address] Andre[place], [address], [address] [facility] Work Phone: Start: 09-09-2014 End: 09-09-2014 Ecg routine ecg w/least 12 lds w/i&r EKG (In office) [facility] Work Phone: Start: 09-09-2014 End: 09-09-2014 Echocardiography Echocardiogram (complete) [facility] Work Phone: Start: 09-09-2014 End: 09-09-2014 Follow Up Appt 3 months Follow Up Appt 3 months [facility] Work Phone: Start: 09-09-2014 End: 09-09-2014 PFM PFM [facility] Work Phone: Start: 09-09-2014 End: 09-09-2014 Renal doppler Renal doppler [facility] Work Phone: Start: 08-25-2014 End: 08-29-2014 *CBC with Differential *CBC with Differential [facility] Work Phone: Start: 08-25-2014 End: 08-29-2014 Bacteria identified Cx Nom (Body fld) *CUBF- Culture, Body Fluid [facility] Work Phone: Start: 08-25-2014 End: 08-29-2014 Crystals LM Nom (Body fld) *ERON - Crystals, Body Fluid [facility] Work Phone: Start: 08-25-2014 End: 08-29-2014 Glucose mass conc (Body fld) *GLUBF - Glucose, Body Fluid [facility] Work Phone: Start: 08-25-2014 End: 08-29-2014 Microscopic observation Gram stain Nom (Unsp spec) *GS - Gram Stain [facility] Work Phone: Start: 08-25-2014 End: 08-29-2014 Protein mass conc (Body fld) *PROBF - Protein, Body Fluid [facility] Work Phone: Start: 08-25-2014 End: 08-29-2014 Radiologic exam knee complete 4/more views X-Ray, Knee [facility] Work Phone: Start: 06-03-2013 Shingles (RZV) Vaccine (2 of 3) Shingles (RZV) Vaccine (2 of 3) [facility] Start: 05-10-2013 SHINGRIX VACCINE (1 of 2) SHINGRIX VACCINE (1 of 2) [facility] Start: 05-10-2013 SHINGRIX VACCINE (2 of 3) SHINGRIX VACCINE (2 of 3) [facility] Start: 05-08-2007 Pneumococcal vaccination Pneumococcal Vaccine(s) (65+ yrs) (2 - PCV) [facility] Start: 05-08-2007 PNEUMOCOCCAL: 65+ (2 - PCV) PNEUMOCOCCAL: 65+ (2 - PCV) [facility] Start: 11-12-2005 Annual wellness visit Annual Wellness Visit (G0438) [facility] Start: 2003 Screening for osteoporosis Bone Densitometry [facility] Start: 1957 Urine microalbumin profile DTAP,TDAP,TD (1 - Tdap) [facility] Start: 02-13-1956 Tetanus + diphtheria + acellular pertussis vaccine (product) Tdap Booster [facility] Patient Education OSTEOARTHRITIS [facility] Work Phone: [address] Immunizations Immunization Date Immunization Notes Care Provider Fa [facility] 03-20-2022 Influenza, injectabl e, high-dose seasonal, quadrivalent, 0.7 mL, preservative free (FIB=620) Leslie Narvaez MD Work Phone: [facility] 10-14-2021 Moderna SARS-COV-2 (COVID-19) vaccine, mRNA, spike protein, LNP, preservative free, 100 mcg/0.5 mL (primary) or 50 mcg/0.25 mL (booster) (OSE=379) Leslie Narvaez MD Work Phone: [facility] 03-11-2021 Influenza, injectabl e, high-dose seasonal, quadrivalent, 0.7 mL, preservative free (VFU=302) Leslie Narvaez MD Work Phone: [facility] 09-01-2020 Moderna SARS-COV-2 (COVID-19) vaccine, mRNA, spike protein, LNP, preservative free, 100 mcg/0.5 mL (primary) or 50 mcg/0.25 mL (booster) (IQA=256) Leslie Narvaez MD Work Phone: [facility] 08-04-2020 Moderna SARS-COV-2 (COVID-19) vaccine, mRNA, spike protein, LNP, preservative free, 100 mcg/0.5 mL (primary) or 50 mcg/0.25 mL (booster) (IDT=659) Leslie Narvaez MD Work Phone: [facility] 03-28-2020 Influenza, injectabl e, high-dose seasonal, quadrivalent, 0.7 mL, preservative free (NSD=024) Leslie Narvaez MD Work Phone: [facility] 04-01-2019 influenza, high dose seasonal, preservative-free Leslie Narvaez MD Work Phone: [facility] 03-24-2019 influenza, seasonal, injectable, preservative free Leslie Narvaez MD Work Phone: [facility] 03-22-2017 influenza, high dose seasonal, preservative-free Inez Mitch PA-C Work Phone: [facility] 03-15-2017 influenza, seasonal, injectable Inez Mitch PA-C Work Phone: [facility] 03-15-2017 influenza, seasonal, injectable, preservative free Leslie Narvaez MD Work Phone: [facility] 03-15-2017 Seasonal, trivalent, recombinant, injectable influenza vaccine, preservative free Inez Mitch PA-C Work Phone: [facility] 06-23-2016 influenza, high dose seasonal, preservative-free Inez Mitch PA-C Work Phone: [facility] 04-25-2015 influenza, high dose seasonal, preservative-free Inez Mitch PA-C Work Phone: [facility] 04-08-2013 zoster vaccine, live Lamonte Narvaez MD Work Phone: [facility] 03-15-2013 zoster vaccine, live Inez Mitch PA-C Work Phone: [facility] Work Phone: 04-14-2012 influenza virus vaccine, unspecified formulation Inez Mitch PA-C Work Phone: [facility] Work Phone: 04-17-2011 influenza virus vaccine, unspecified formulation Inez Mitch PA-C Work Phone: [facility] Work Phone: 04-25-2010 influenza virus vaccine, unspecified formulation Inez Mitch PA-C Work Phone: [facility] Work Phone: 08-02-2009 novel [id number], preservative-free, injectable Inez Mitch PA-C Work Phone: [facility] 04-09-2009 influenza virus vaccine, unspecified formulation Inez Mitch PA-C Work Phone: [facility] 05-20-2008 influenza virus vaccine, unspecified formulation Inez Mitch PA-C Work Phone: [facility] 05-26-2007 influenza virus vaccine, unspecified formulation Inez Mitch PA-C Work Phone: [facility] 05-20-2006 influenza virus vaccine, unspecified formulation Inez Mitch PA-C Work Phone: [facility] 05-08-2006 pneumococcal polysaccharide vaccine, 23 valent Inez Mitch PA-C Work Phone: [facility] 05-11-2005 influenza virus vaccine, unspecified formulation Inez Mitch PA-C Work Phone: [facility] Work Phone: NEGATED: Highlighted row has not occurred!08-08-2018 influenza, high dose seasonal, preservative-free Inez Mitch PA-C Work Phone: [facility] Payers Date Payer Category Payer Medicare HUMANA MEDICARE HUMANA GOLD PLUS [id number] 2021-Present [phone] [address] [address] [place] [address] HMO [id number] 2021 Private Health Insurance [id number] 2018 Unknown [id number] 2018 Unknown [employer] M[employer] - TRADITIONAL MEDICAL MUTUAL TRADITIONAL [id number] 2018-Present [address] [place] [address] Indemnity [id number] 2004 Medicare [id number] 2003 Medicare [id number] 1938 Unknown [id number] Social History Date Type Detail Facility Start: 11-03-2015 End: 04-16-2017 Tobacco smoking status NHIS Ex-smoker [facility] Work Phone: End: 07-15-1972 History of tobacco use Current smoker [facility] Work Phone: End: 07-15-1972 History of tobacco use Cigarette Smoker [facility] Work Phone: Start: 04-20-2020 End: 10-02-2021 Alcohol intake Current drinker of alcohol (finding) [facility] Start: 04-20-2020 End: 10-02-2021 Alcohol intake [facility] Start: 1940 Sex Assigned At Not on file [facility] Start: 10-29-2021 End: 11-27-2021 Exposure to SARS-CoV-2 (event) Not sure [facility] Start: 11-03-2015 End: 04-16-2017 Tobacco use and exposure Smokeless tobacco non-user [facility] Start: 04-16-2017 Tobacco Comment Quit [facility] Start: 1940 Sex Assigned At Female C [facility] Medical Equipment Procedure Code Equipment Code Equipment Origin al Text Equipment Identifier Dates Stent Express Sd Monorail 7mm Stainless Steel 19mm 150cm Biliary Premount - [id number] Start: 07-30-2018 Clinical Notes 09-04-2018 to 05-04-2022 Telephone Encounter - Miracle Price RN - 05/04/2022 9:17 AM EDTTelephone Encounter - Inez Davies PA-C - 05/04/2022 8:57 AM EDTNelson Walker MD - 11/28/2021 9:50 AM EDT Note Date & Type Note Facility 05-04-2022 Miscellaneous Notes Neuro SPINE CARE COORDINATION QUICK NOTE PT order faxed to requested location. Miracle Price RN Disability Aide New Order for PT placed per patient request. Will have team fax to facility of choice [facility] 11/27/2021 Patient to follow up with me after PT if still having symptoms Inez Davies PA-C May 04, 2022 8:57 AM Pt called; asking if LUCY can write her another order for physical therapy. Please send to: [facility] Please advise; ph; [phone] documented in this encounter [facility] 11-30-2021 Miscellaneous Notes At pt's request: Faxed CT Lumbar, Thoracic and Cervical Myelogram Reports to her PCP: Logan Chinchilla MD Sent via RT Fax electronic transmission documented in this encounter [facility] 11-28-2021 Note HNO ID: [id number] Author: Nelson Walker MD Service: ? Author Type: Physician Type: Progress Notes Filed: 12/04/2021 2:15 PM Note Text: SPINE SURGERY NEW PATIENT PCP: Logan Chinchilla MD REFERRING PROVIDER: Inez Davies PA-C SUBJECTIVE HISTORY OF PRESENT ILLNESS: Ijeoma Yanes is a 81 year old female CHIEF COMPLAINT: upper back pain Patient previously seen by Inez Davies PA-C on 11/27/21. Patient presents with upper back pain that started after Aortic stent secondary to aortic disection by Dr. Danna Zaldivar MD in 07/30/2018. Denies accident/injury. Pain localized to upper back. Pain described as achy, sharp. Denies radiation of pain. Denies numbness and tingling. Pain worse with Prolonged standing, prolonged standing still with home chores like dishes or cooking requiring facet loading, and walking without walker. Patient able to walk 400 feet before having to stop secondary to back/leg pain with walker. Pain improved with rest. Heat with relief. Medications include Tylenol 650 mg 1-2 tablets TID,tramadol 50 mg PRN - rarely uses, oxycodone 5 mg once a week if having severe pain, Gummies QHS. Unable to take NSAIDS secondary to stent. PRECIPITATING EVENT: Pain presented after stent DURATION OF SYMPTOMS: Greater Than 1 Year PAIN EVALUATION 11/28/2021 0955 Pain Level: 3 pain was a 10 earlier this morning Pain Location: ? lt toes Description: Cramping Duration Amount of Time: 6 Duration Units: Months Frequency: Continuous Intervention/Comfort measure: Medication Aggravating Factors: Prolonged standing Alleviating Factors: rest AMBULATORY STATUS: Impaired Community Distances ANTIPLATELET OR ANTICOAGULATION STATUS: No PREVIOUS CONSERVATIVE TREATMENTS: Tramadol Tylenol Opioids PREVIOUS SPINAL SURGERY: None ACTIVE PROBLEM LIST Lymphoma, Large Lymphoid, Diffuse (Hcc) Lymphoma, Large-Cell, Diffuse (Hcc) Hypertension Personal History of Colonic Polyps Aortic Dissection (Hcc) Bernardo (Acute Kidney Injury) (Hcc) Renal Artery Stenosis (Hcc) Atelectasis Post-Op Pain Thoracic Aortic Dissection (Hcc) Sleep Apnea Gerd (Gastroesophageal Reflux Disease) PAST MEDICAL HISTORY Diagnosis Date - Blood dyscrasia Lymphoma- in remission - Deep venous thrombosis (HCC) 09/29/2010 after foot surgery. 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 - Osteoporosis - Pneumonia due to other virus not elsewhere classified pneumonia x 2 - Rib fracture 7th rib right side from fall 07/09/15 - Sciatica right leg - Sleep apnea CPAP - Snoring - Unspecified constipation PAST SURGICAL HISTORY Procedure Laterality Date - ARTHRD ANT INTERBODY MIN DSC LUMBAR 04/2014 - ARTHRP ACETBLR/PROX FEM PROSTC AGRFT/ALGRFT 07/2013 left hip - BRNCHSC INCL FLUOR GDNCE DX W/CELL WASHG SPX September2003 BRONCHOSCOPY - CATARACT EXTRACTION HX Bilateral ,14 - COLONOSCOPY FLX DX W/COLLJ SPEC WHEN PFRMD 05/24/2005 Colonoscopy - COLONOSCOPY FLX DX W/COLLJ SPEC WHEN PFRMD 08/06/2014 Colonoscopy - COLONOSCOPY FLX DX W/COLLJ SPEC WHEN PFRMD 01/13/15 Colonoscopy - CORRECTION OF BUNION Right 2010 - EXCISION OF MEDIASTINAL TUMOR September2003 Right thoracotomy - LUMBAR SPINE FUSION COMBINED 04/2014 Has hardware - OPEN/PERQ PLACEMENT INTRAVASCULAR STENT INITIAL Bilateral 07/30/2018 Bilat renal artery stents - PAST SURGICAL HISTORY OF 03/29 right knee replacement - PAST SURGICAL HISTORY OF Left 2001 wrist. External fixator - PAST SURGICAL HISTORY OF Left 12/2017 L TKR - SIGMOIDOSCOPY FLX DX W/COLLJ SPEC BR/WA IF PFRMD 10/06/15 Sigmoidoscopy, flexible - TOTAL ABDOMINAL HYSTERECT W/WO RMVL TUBE OVARY 1981 overies intact. Menorrhagia FAMILY HISTORY Problem Relation Age of Onset - Coronary Artery Disease Mother PA, dec. age 63 - Coronary Artery Disease Father PA - Aneurysm Father - Breast Cancer Sister - Breast Cancer Daughter Social History Tobacco Use - Smoking status: Former Smoker Packs/day: 1.00 Years: 15.00 Pack years: 15.00 Types: Cigarettes Quit date: 07/15/1972 Years since quittin.4 - Smokeless tobacco: Never Used Substance Use Topics - Alcohol use: Yes Alcohol/week: 5.0 standard drinks Types: 2 Glasses of Wine (5oz) per week Comment: once or twice weekly (one glass of wine) - Drug use: No ALLERGIES Allergen Reactions - Levaquin [Levofloxa* Rash Other reaction(s): Rash - Bisoprolol Other: See Comments Discovered after being on med 3 wks.Had been to ER in [place] And an urgent care md Abram (more content not included)... [facility] 11-28-2021 History of Presen t illness Narrative Images from the original note were not included. SPINE SURGERY NEW PATIENT PCP: Logan Chinchilla MD REFERRING PROVIDER: Inez Davies PA-C SUBJECTIVE HISTORY OF PRESENT ILLNESS: Ijeoma Yanes is a 81 year old female CHIEF COMPLAINT: upper back pain Patient previously seen by Inez Davies PA-C on 11/27/21. Patient presents with upper back pain that started after Aortic stent secondary to aortic disection by Dr. Danna Zaldivar MD in 07/30/2018. Denies accident/injury. Pain localized to upper back. Pain described as achy, sharp. Denies radiation of pain. Denies numbness and tingling. Pain worse with Prolonged standing, prolonged standing still with home chores like dishes or cooking requiring facet loading, and walking without walker. Patient able to walk 400 feet before having to stop secondary to back/leg pain with walker. Pain improved with rest. Heat with relief. Medications include Tylenol 650 mg 1-2 tablets TID,tramadol 50 mg PRN - rarely uses, oxycodone 5 mg once a week if having severe pain, Gummies QHS. Unable to take NSAIDS secondary to stent. PRECIPITATING EVENT: Pain presented after stent DURATION OF SYMPTOMS: Greater Than 1 Year PAIN EVALUATION 11/28/2021 0955 Pain Level: 3 pain was a 10 earlier this morning Pain Location: lt toes Description: Cramping Duration Amount of Time: 6 Duration Units: Months Frequency: Continuous Intervention/Comfort measure: Medication Aggravating Factors: Prolonged standing Alleviating Factors: rest AMBULATORY STATUS: Impaired Community Distances ANTIPLATELET OR ANTICOAGULATION STATUS: No PREVIOUS CONSERVATIVE TREATMENTS: Tramadol Tylenol Opioids PREVIOUS SPINAL SURGERY: None ACTIVE PROBLEM LIST Lymphoma, Large Lymphoid, Diffuse (Hcc) Lymphoma, Large-Cell, Diffuse (Hcc) Hypertension Personal History of Colonic Polyps Aortic Dissection (Hcc) Bernardo (Acute Kidney Injury) (Hcc) Renal Artery Stenosis (Hcc) Atelectasis Post-Op Pain Thoracic Aortic Dissection (Hcc) Sleep Apnea Gerd (Gastroesophageal Reflux Disease) PAST MEDICAL HISTORY Diagnosis Date Blood dyscrasia Lymphoma- in remission Deep venous thrombosis (HCC) 09/29/2010 after foot surgery. R leg Disorder of bone and cartilage, unspecified OSTEOPENIA Diverticulosis of colon (without mention of hemorrhage) Esophageal reflux 10/23/2005 Essential hypertension, benign HERPES SIMPLEX NOS 11/12/2006 Tips of R fingers Hyperlipidemia 11/08/2009 HYPERTENSION NOS 10/23/2005 LYMPHOMAS NEC 10/12/2003 2019 in remissiion Lymphosarcoma, unspecified site, extranodal and solid organ sites (HCC) NON HODGKINS LYMPHOMA Osteoporosis Pneumonia due to other virus not elsewhere classified pneumonia x 2 Rib fracture 7th rib right side from fall 07/09/15 Sciatica right leg Sleep apnea CPAP Snoring Unspecified constipation PAST SURGICAL HISTORY Procedure Laterality Date ARTHRD ANT INTERBODY MIN DSC LUMBAR 04/2014 ARTHRP ACETBLR/PROX FEM PROSTC AGRFT/ALGRFT 07/2013 left hip BRNCHSC INCL FLUOR GDNCE DX W/CELL WASHG SPX September2003 BRONCHOSCOPY CATARACT EXTRACTION HX Bilateral 13,14 COLONOSCOPY FLX DX W/COLLJ SPEC WHEN PFRMD 05/24/2005 Colonoscopy COLONOSCOPY FLX DX W/COLLJ SPEC WHEN PFRMD 08/06/2014 Colonoscopy COLONOSCOPY FLX DX W/COLLJ SPEC WHEN PFRMD 01/13/15 Colonoscopy CORRECTION OF BUNION Right 2010 EXCISION OF MEDIASTINAL TUMOR September2003 Right thoracotomy LUMBAR SPINE FUSION COMBINED 04/2014 Has hardware OPEN/PERQ PLACEMENT INTRAVASCULAR STENT INITIAL Bilateral 07/30/2018 Bilat renal artery stents PAST SURGICAL HISTORY OF 03/29 right knee replacement PAST SURGICAL HISTORY OF Left 2001 wrist. External fixator PAST SURGICAL HISTORY OF Left 12/2017 L TKR SIGMOIDOSCOPY FLX DX W/COLLJ SPEC BR/WA IF PFRMD 10/06/15 Sigmoidoscopy, flexible TOTAL ABDOMINAL HYSTERECT W/WO RMVL TUBE OVARY 1981 overies intact. Menorrhagia FAMILY HISTORY Problem Relation Age of Onset Coronary Artery Disease Mother PA, dec. age 63 Coronary Artery Disease Father PA Aneurysm Father Breast Cancer Sister Breast Cancer Daughter Social History Tobacco Use Smoking status: Former Smoker Packs/day: 1.00 Years: 15.00 Pack years: 15.00 Types: Cigarettes Quit date: 07/15/1972 Years since quittin.4 Smokeless tobacco: Never Used Substance Use Topics Alcohol use: Yes Alcohol/week: 5.0 standard drinks Types: 2 Glasses of Wine (5oz) per week Comment: once or twice weekly (one glass of wine) Drug use: No ALLERGIES Allergen Reactions Levaquin [Levofloxa* Rash Other reaction(s): Rash Bisoprolol Other: See Comments Discovered after being on med 3 wks.Had been to ER in [place] And an urgent care md Bleeding Discovered after being on med 3 wks.Had been to ER in [place] And an urgent care md Meghan Other: See Comments elevated blood pressure Cough syrup ONLY Elevates BP elevated blood pressure Meloxicam Unknown Other reaction(s): Other bruising bruising Sulfa (Sulfonamide * Hives Sulfasalazine Hives MEDICATIONS: Zinc 50 mg tab Take by mouth. amLODIPine (NORVASC) 10 mg tablet Take 10 mg by mouth once daily. traMADol (ULTRAM) 50 mg tablet Take 50 mg by mouth every 6 hours as needed for pain. iv contrast (will be provided with radiology test) CT Cardiac - No IV access, insert saline lock prior to the sedation, infusion, injection for imaging exam. Discontinue saline lock post exam. If Pt. has a central line or IVAD, may access for administration according to line specific nursing protocol. Once exam is complete flush line and de-access according to line specific nursing protocol in the CT contrast administration guidelines link. polyethylene glycol 3350 (MIRALAX) 17 gram/dose powder Take by mouth as needed. furosemide (LASIX) 20 mg tablet Take 20 mg by mouth as needed. As needed for fluid retention LORazepam (ATIVAN) 0.5 mg tab Take 0.5 mg by mouth once daily. omeprazole (PRILOSEC) 20 mg capsule Take 20 mg by mouth once daily. Omeprazole Magnesium 20 mg tablet Take 20 mg by mouth once daily. lisinopril (ZESTRIL, PRINIVIL) 10 mg tablet Take 1 tablet by mouth once daily. docusate sodium (COLACE) 100 mg capsule Take 1 capsule by mouth twice daily as needed for Constipation. labetalol (TRANDATE) 200 mg tablet Take 1.5 tablets by mouth every 8 hours. Please follow up with PCP for future refills hydrALAZINE (APRESOLINE) 100 mg tablet Take 1 tablet by mouth every 6 hours. Please see PCP for future refills sennosides/docusate sodium (SENNA-S ORAL) Take by mouth twice daily. acetaminophen (TYLENOL) 325 mg tablet Take 2 tablets by mouth every 4 hours as needed for Pain. aspirin 81 mg chewable tablet Take 1 tablet by mouth once daily. cloNIDine HCl (CATAPRES) 0.3 mg tablet Take 1 tablet by mouth every 8 hours. Please see your PCP for future refills NIFEdipine ER (PROCARDIA XL) 90 mg 24 hr tablet Take 1 tablet by mouth twice daily. Please see PCP for future refills iv contrast (will be provided with radiology test) CT Cardiac - No IV access, insert saline lock prior to the sedation, infusion, injection for imaging exam. Discontinue saline lock post exam. If Pt. has a central line or IVAD, may access for administration according to line specific nursing protocol. Once exam is complete flush line and de-access according to line specific nursing protocol in the CT contrast administration guidelines link. BIOTIN ORAL Take by mouth. [place]-3 Fatty Acids-Vitamin E (FISH OIL) 1,000 mg cap Take 2 capsules by mouth three times daily. alendronate (FOSAMAX) 70 mg tablet Take 70 mg by mouth once each week. estradiol (ESTRACE) 0.01 % (0.1 mg/gram) vaginal cream Use vaginally as needed. cyanocobalamin 1,000 mcg ORAL Tab Take 1 tablet by mouth once daily. CALCIUM CARBONATE/VITAMIN D3 (CALCIUM 600 + D ORAL) Take by mouth twice daily. MULTIVITAMIN CAP Take one(1) tablet daily. GLUCOSAMINE-CHONDROITIN 500 MG-400 MG ORAL CAP Take one(1) tablet two(2) times daily. REVIEW OF SYSTEMS: GENERAL: No weight loss or malaise MUSCULOSKELETAL: See HPI NEURO: No history of headaches, syncope, paralysis, seizures or tremors Patient Entered Questionnaires PROMIS Score Percentiles PROMIS Global Health Scale 04/09/2017 Physical Health Percentile 10 Mental Health Percentile 34 Percentiles provide an indication of how the patient's score ranks in relation to the general population. Higher percentile rankings indicate better function/quality of life. 50th percentile is the average of the general population and indicates half of respondents had a worse score. Depression Screening: PHQ-9 Self-Harm (Item 9) response options: 0 Not at all 1 Several days 2 More than half the days 3 Nearly every day PHQ-9 Levels: 0-4 No to mild depression 5-9 Mild depression 10-14 Moderate depression 15-19 Moderately severe depression 20-27 Severe depression OBJECTIVE: PHYSICAL EXAM BP 132/56 Pulse 66 Resp 16 Ht 162.6 cm (5' 4 ) Wt 64.4 kg (142 lb) SpO2 96% BMI 24.37 kg/m GENERAL APPEARANCE: Well nourished, well developed, and no apparent distress. NEURO PSYCH: Patient oriented to person, place, and time. Mood pleasant. Benign affect. CARDIOVASCULAR: Palpable pulses. No edema noted. No varicosities. SKIN: Head, neck, trunk, and extremities dry, intact and without lesions. LYMPHATICS: No palpable nodes in cervical or axillae areas. Groin exam deferred. MUSCULOSKELETAL VISUAL INSPECTION CERVICAL: WNL THORACIC: WNL LUMBAR: WNL PALPATION: SPINOUS PROCESS: No pain. PARASPINALS: No pain. MUSCLE BULK: Normal and symmetrical in the upper & lower extremities. MUSCLE TONE: Normal. MOTOR: 5/5 in all muscle groups. SENSORY: Normal sensory exam GAIT: Normal. REFLEXES: +2 to bilateral U/L extremities. PROPRIOCEPTION: Normal. LONG TRACT SIGNS: No clonus. No Hoffmans. STRAIGHT LEG TEST: Not Tested. L'HERMITTES SIGN: Not tested. SPURLING'S TEST: Not tested. 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 Patient presents with upper back pain that started after Aortic stent secondary to aortic disection by Dr. Danna Zaldivar MD in 07/30/2018. Denies accident/injury. Pain localized to upper back. Pain described as achy, sharp. Denies radiation of pain. Denies numbness and tingling. Pain worse with Prolonged standing, prolonged standing still with home chores like dishes or cooking requiring facet loading, and walking without walker. Patient able to walk 400 feet before having to stop secondary to back/leg pain with walker. Pain improved with rest. Heat with relief. Medications include Tylenol 650 mg 1-2 tablets TID,tramadol 50 mg PRN - rarely uses, oxycodone 5 mg once a week if having severe pain, Gummies QHS. Unable to take NSAIDS secondary to stent. Physical exam demonstrates as above. CT myelogram cervical, thoracic, lumbar 11/08/21 reviewed and discussed showing cervical spondylosis without high-grade bony canal or foraminal compromise, as detailed. Levels of ventral cord approximation/abutment. Thoracolumbar postoperative changes with findings compatible with loosening involving the left T12 transpedicular screw. Spondylotic changes without high-grade bony canal or foraminal compromise in the thoracolumbar spine. Multiple bilateral thyroid nodules. Plan: 1. Staff note: 2. Pain abrupt onset after graft, likely nothing surgical (spine) would be useful, unilateral loose screw likely not contributing 3. Nelson Walker MD Scribe Attestation: By signing my name below, I, Froylan Byrd, attest that this documentation has been prepared under the direction and in the presence of Nelson Walker MD. Electronically Signed:leora Aldrich, November 27, 2021 10:28 PM I agree with the Chief Complaint, ROS, and Past Histories independently gathered by the clinical technical support internship and the remaining scribed note accurately describes my personal service to the patient. documented in this encounter [facility] 11-27-2021 Note HNO ID: [id number] Author: RT Alyssa(R) Service: Radiology Author Type: Technologist Type: Progress Notes Filed: 11/27/2021 1:40 PM Note Text: Radiology Service Progress Note PATIENT NAME: Ijeoma Yanes DATE OF SERVICE: November 27, 2021 TIME: 1:39 PM PATIENT IDENTITY VERIFICATION COMPLETED USING TWO (2) IDENTIFIERS: Name and Date of confirmed by patient verbally. FALL SCREENING: Has the patient had 2 falls in the last year or 1 fall with injury or currently using an Ambulatory Assistive Device (Walker, Cane, Wheelchair, Crutches, etc.)? No PATIENT GENDER DATA: Female. status: : No status: N/A PATIENT RELEVANT IMPLANT DATA REVIEWED: Not Applicable RADIOLOGY DEPARTMENT: General X-ray: Exam(s) Completed: Spine X-Ray(s): Scoliosis Series PERIPHERAL IV DATA: Not applicable SIGNED BY: RT Alyssa(R) November 27, 2021 1:39 PM [facility] 11-27-2021 Note HNO ID: [id number] Author: Inez Davies PA-C Service: ? Author Type: Physician Womens Volleyball Coach Type: Progress Notes Filed: 11/27/2021 1:24 PM Note Text: Follow Up Visit to discuss MRI results History obtained from visit on [facility] Upper back pain Initial Exam SUBJECTIVE HISTORY OF PRESENT ILLNESS: Ijeoma Yanes is a 81 year old female who presents with a chief complaint of upper back pain and is seen in consultation requested by Dr. Danna Zaldivar for an opinion regarding upper back pain. My final recommendations will be communicated back to the requesting physician by way of shared medical record or letter via US mail. Patient presents with Patient presents with upper back pain that started after Aortic stent secondary to aortic disection by Dr. Danna Zaldivar MD in 07/30/2018 Denies accident/injury Pain localized to upper back Pain described as achy, sharp Radiation: Denies Numbness/Tingling: none Denies bowel or bladder incontinence Denies difficulty with gait or balance concerns Right handed Denies difficulty with fine motor skills Pain rated 0/10, 8/10 daily 100% back pain Pain worse with Prolonged standing, prolonged standing still with home chores like dishes or cooking requiring facet loading, and walking without walker Patient able to walk 400 feet before having to stop secondary to back/leg pain with walker Pain improved with rest Heat with relief Medications: Tylenol 650 mg 1-2 tablets TID,tramadol 50 mg PRN - rarely uses, oxycodone 5 mg once a week if having severe pain, Gummies QHS Unable to take NSAIDS secondary to stent Denies recent conservative treatment to include physical therapy, chiropractor manipulation, acupuncture, or massage Treating Providers: Dr. Leslie Narvaez MD History of Spine Injections/Surgery: Jul 2016 - T12 - sacroiliac joints - Dr. Oscar MD - great relief Multiple injections prior to surgery without relief Left THR Left TKR Right TKR Worked in [employer] Activity: Not active secondary to pain The patient is here for a follow up visit to discuss myelogram results with . The patient states she continues to have pain in the upper back bilaterally. The patient also state she has numbness and tingling in left foot. The patient is taking Advil 400 mg QHS, Tylenol 650 mg 2 tablets 1-2X/day, oxycodone 5 mg QHS, Gummies QHS. The patient never started physical therapy ACTIVE PROBLEM LIST Lymphoma, Large Lymphoid, Diffuse (Hcc) Lymphoma, Large-Cell, Diffuse (Hcc) Hypertension Personal History of Colonic Polyps Aortic Dissection (Hcc) Bernardo (Acute Kidney Injury) (Hcc) Renal Artery Stenosis (Hcc) Atelectasis Post-Op Pain Thoracic Aortic Dissection (Hcc) Sleep Apnea Gerd (Gastroesophageal Reflux Disease) PAST MEDICAL HISTORY Diagnosis Date - Blood dyscrasia Lymphoma- in remission - Deep venous thrombosis (HCC) 09/29/2010 after foot surgery. R leg - Disorder of bone and cartilage, unspecified OSTEOPENIA - Diverticulosis of colon (without mention of hemorrhage) - Esophageal reflux 10/23/2005 - Essential hypertension, benign - HERPES SIMPLEX NOS 11/12/2006 Tips of R fingers - Hyperlipidemia 11/08/2009 - HYPERTENSION NOS 10/23/2005 - LYMPHOMAS NEC 10/12/2003 2019 in remissiion - Lymphosarcoma, unspecified site, extranodal and solid organ sites (HCC) NON HODGKINS LYMPHOMA - Osteoporosis - Pneumonia due to other virus not elsewhere classified pneumonia x 2 - Rib fracture 7th rib right side from fall 07/09/15 - Sciatica right leg - Sleep apnea CPAP - Snoring - Unspecified constipation PAST SURGICAL HISTORY Procedure Laterality Date - ARTHRD ANT INTERBODY MIN DSC LUMBAR 04/2014 - ARTHRP ACETBLR/PROX FEM PROSTC AGRFT/ALGRFT 07/2013 left hip - BRNCHSC INCL FLUOR GDNCE DX W/CELL WASHG SPX September2003 BRONCHOSCOPY - CATARACT EXTRACTION HX Bilateral 13,14 - COLONOSCOPY FLX DX W/COLLJ SPEC WHEN PFRMD 05/24/2005 Colonoscopy - COLONOSCOPY FLX DX W/COLLJ SPEC WHEN PFRMD 08/06/2014 Colonoscopy - COLONOSCOPY FLX DX W/COLLJ SPEC WHEN PFRMD 01/13/15 Colonoscopy - CORRECTION OF BUNION Right 2010 - EXCISION OF MEDIASTINAL TUMOR September2003 Right thoracotomy - LUMBAR SPINE FUSION COMBINED 04/2014 Has hardware - OPEN/PERQ PLACEMENT INTRAVASCULAR STENT INITIAL Bilateral 07/30/2018 Bilat renal artery stents - PAST SURGICAL HISTORY OF 03/29 right knee replacement - PAST SURGICAL HISTORY OF Left 2001 wrist. External fixator - PAST SURGICAL HISTORY OF Left 12/2017 L TKR - SIGMOIDOSCOPY FLX DX W/COLLJ SPEC BR/WA IF PFRMD 10/06/15 Sigmoidoscopy, flexible - TOTAL ABDOMINAL HYSTERECT W/WO RMVL TUBE OVARY 1981 overies intact. Menorrhagia Social History Tobacco Use - Smoking status: Former Smoker Packs/day: 1.00 Years: 15.00 Pack years: 15.00 Types: Cigarettes Quit date: 07/15/1972 Years since quittin.4 - Smokeless t (more content not included)... [facility] 11-27-2021 History of Presen t illness Narrative Radiology Service Progress Note PATIENT NAME: Ijeoma Yanes DATE OF SERVICE: November 27, 2021 TIME: 1:39 PM PATIENT IDENTITY VERIFICATION COMPLETED USING TWO (2) IDENTIFIERS: Name and Date of confirmed by patient verbally. FALL SCREENING: Has the patient had 2 falls in the last year or 1 fall with injury or currently using an Ambulatory Assistive Device (Walker, Cane, Wheelchair, Crutches, etc.)? No PATIENT GENDER DATA: Female. status: : No status: N/A PATIENT RELEVANT IMPLANT DATA REVIEWED: Not Applicable RADIOLOGY DEPARTMENT: General X-ray: Exam(s) Completed: Spine X-Ray(s): Scoliosis Series PERIPHERAL IV DATA: Not applicable SIGNED BY: RT Alyssa(R) November 27, 2021 1:39 PM documented in this encounter [facility] 11-27-2021 History of Presen t illness Narrative Follow Up Visit to discuss MRI results History obtained from visit on [facility] Path Upper back pain Initial Exam SUBJECTIVE HISTORY OF PRESENT ILLNESS: Ijeoma Yanes is a 81 year old female who presents with a chief complaint of upper back pain and is seen in consultation requested by Dr. Danna Zaldivar for an opinion regarding upper back pain. My final recommendations will be communicated back to the requesting physician by way of shared medical record or letter via US mail. Patient presents with Patient presents with upper back pain that started after Aortic stent secondary to aortic disection by Dr. Danna Zaldivar MD in 07/30/2018 Denies accident/injury Pain localized to upper back Pain described as achy, sharp Radiation: Denies Numbness/Tingling: none Denies bowel or bladder incontinence Denies difficulty with gait or balance concerns Right handed Denies difficulty with fine motor skills Pain rated 0/10, 8/10 daily 100% back pain Pain worse with Prolonged standing, prolonged standing still with home chores like dishes or cooking requiring facet loading, and walking without walker Patient able to walk 400 feet before having to stop secondary to back/leg pain with walker Pain improved with rest Heat with relief Medications: Tylenol 650 mg 1-2 tablets TID,tramadol 50 mg PRN - rarely uses, oxycodone 5 mg once a week if having severe pain, Gummies QHS Unable to take NSAIDS secondary to stent Denies recent conservative treatment to include physical therapy, chiropractor manipulation, acupuncture, or massage Treating Providers: Dr. Leslie Narvaez MD History of Spine Injections/Surgery: Jul 2016 - T12 - sacroiliac joints - Dr. Oscar MD - great relief Multiple injections prior to surgery without relief Left THR Left TKR Right TKR Worked in [employer] Activity: Not active secondary to pain The patient is here for a follow up visit to discuss myelogram results with . The patient states she continues to have pain in the upper back bilaterally. The patient also state she has numbness and tingling in left foot. The patient is taking Advil 400 mg QHS, Tylenol 650 mg 2 tablets 1-2X/day, oxycodone 5 mg QHS, Gummies QHS. The patient never started physical therapy ACTIVE PROBLEM LIST Lymphoma, Large Lymphoid, Diffuse (Hcc) Lymphoma, Large-Cell, Diffuse (Hcc) Hypertension Personal History of Colonic Polyps Aortic Dissection (Hcc) Bernardo (Acute Kidney Injury) (Hcc) Renal Artery Stenosis (Hcc) Atelectasis Post-Op Pain Thoracic Aortic Dissection (Hcc) Sleep Apnea Gerd (Gastroesophageal Reflux Disease) PAST MEDICAL HISTORY Diagnosis Date Blood dyscrasia Lymphoma- in remission Deep venous thrombosis (HCC) 09/29/2010 after foot surgery. 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 Osteoporosis Pneumonia due to other virus not elsewhere classified pneumonia x 2 Rib fracture 7th rib right side from fall 07/09/15 Sciatica right leg Sleep apnea CPAP Snoring Unspecified constipation PAST SURGICAL HISTORY Procedure Laterality Date ARTHRD ANT INTERBODY MIN DSC LUMBAR 04/2014 ARTHRP ACETBLR/PROX FEM PROSTC AGRFT/ALGRFT 07/2013 left hip BRNCHSC INCL FLUOR GDNCE DX W/CELL WASHG SPX September2003 BRONCHOSCOPY CATARACT EXTRACTION HX Bilateral 13,14 COLONOSCOPY FLX DX W/COLLJ SPEC WHEN PFRMD 05/24/2005 Colonoscopy COLONOSCOPY FLX DX W/COLLJ SPEC WHEN PFRMD 08/06/2014 Colonoscopy COLONOSCOPY FLX DX W/COLLJ SPEC WHEN PFRMD 01/13/15 Colonoscopy CORRECTION OF BUNION Right 2010 EXCISION OF MEDIASTINAL TUMOR September2003 Right thoracotomy LUMBAR SPINE FUSION COMBINED 04/2014 Has hardware OPEN/PERQ PLACEMENT INTRAVASCULAR STENT INITIAL Bilateral 07/30/2018 Bilat renal artery stents PAST SURGICAL HISTORY OF 03/29 right knee replacement PAST SURGICAL HISTORY OF Left 2001 wrist. External fixator PAST SURGICAL HISTORY OF Left 12/2017 L TKR SIGMOIDOSCOPY FLX DX W/COLLJ SPEC BR/WA IF PFRMD 10/06/15 Sigmoidoscopy, flexible TOTAL ABDOMINAL HYSTERECT W/WO RMVL TUBE OVARY 1981 overies intact. Menorrhagia Social History Tobacco Use Smoking status: Former Smoker Packs/day: 1.00 Years: 15.00 Pack years: 15.00 Types: Cigarettes Quit date: 07/15/1972 Years since quittin.4 Smokeless tobacco: Never Used Substance Use Topics Alcohol use: Yes Alcohol/week: 5.0 standard drinks Types: 2 Glasses of Wine (5oz) per week Comment: once or twice weekly (one glass of wine) Drug use: No FAMILY HISTORY Problem Relation Age of Onset Coronary Artery Disease Mother PA, dec. age 63 Coronary Artery Disease Father PA Aneurysm Father Breast Cancer Sister Breast Cancer Daughter ALLERGIES Allergen Reactions Levaquin [Levofloxa* Rash Other reaction(s): Rash Bisoprolol Other: See Comments Discovered after being on med 3 wks.Had been to ER in [place] And an urgent care md Bleeding Discovered after being on med 3 wks.Had been to ER in [place] And an urgent care md Meghan Other: See Comments elevated blood pressure Cough syrup ONLY Elevates BP elevated blood pressure Meloxicam Unknown Other reaction(s): Other bruising bruising Sulfa (Sulfonamide * Hives Sulfasalazine Hives CURRENT MEDICATIONS: Zinc 50 mg tab Take by mouth. amLODIPine (NORVASC) 10 mg tablet Take 10 mg by mouth once daily. traMADol (ULTRAM) 50 mg tablet Take 50 mg by mouth every 6 hours as needed for pain. iv contrast (will be provided with radiology test) CT Cardiac - No IV access, insert saline lock prior to the sedation, infusion, injection for imaging exam. Discontinue saline lock post exam. If Pt. has a central line or IVAD, may access for administration according to line specific nursing protocol. Once exam is complete flush line and de-access according to line specific nursing protocol in the CT contrast administration guidelines link. polyethylene glycol 3350 (MIRALAX) 17 gram/dose powder Take by mouth as needed. furosemide (LASIX) 20 mg tablet Take 20 mg by mouth as needed. As needed for fluid retention LORazepam (ATIVAN) 0.5 mg tab Take 0.5 mg by mouth once daily. omeprazole (PRILOSEC) 20 mg capsule Take 20 mg by mouth once daily. Omeprazole Magnesium 20 mg tablet Take 20 mg by mouth once daily. lisinopril (ZESTRIL, PRINIVIL) 10 mg tablet Take 1 tablet by mouth once daily. docusate sodium (COLACE) 100 mg capsule Take 1 capsule by mouth twice daily as needed for Constipation. labetalol (TRANDATE) 200 mg tablet Take 1.5 tablets by mouth every 8 hours. Please follow up with PCP for future refills hydrALAZINE (APRESOLINE) 100 mg tablet Take 1 tablet by mouth every 6 hours. Please see PCP for future refills sennosides/docusate sodium (SENNA-S ORAL) Take by mouth twice daily. acetaminophen (TYLENOL) 325 mg tablet Take 2 tablets by mouth every 4 hours as needed for Pain. aspirin 81 mg chewable tablet Take 1 tablet by mouth once daily. cloNIDine HCl (CATAPRES) 0.3 mg tablet Take 1 tablet by mouth every 8 hours. Please see your PCP for future refills NIFEdipine ER (PROCARDIA XL) 90 mg 24 hr tablet Take 1 tablet by mouth twice daily. Please see PCP for future refills iv contrast (will be provided with radiology test) CT Cardiac - No IV access, insert saline lock prior to the sedation, infusion, injection for imaging exam. Discontinue saline lock post exam. If Pt. has a central line or IVAD, may access for administration according to line specific nursing protocol. Once exam is complete flush line and de-access according to line specific nursing protocol in the CT contrast administration guidelines link. BIOTIN ORAL Take by mouth. [place]-3 Fatty Acids-Vitamin E (FISH OIL) 1,000 mg cap Take 2 capsules by mouth three times daily. alendronate (FOSAMAX) 70 mg tablet Take 70 mg by mouth once each week. estradiol (ESTRACE) 0.01 % (0.1 mg/gram) vaginal cream Use vaginally as needed. cyanocobalamin 1,000 mcg ORAL Tab Take 1 tablet by mouth once daily. CALCIUM CARBONATE/VITAMIN D3 (CALCIUM 600 + D ORAL) Take by mouth twice daily. MULTIVITAMIN CAP Take one(1) tablet daily. GLUCOSAMINE-CHONDROITIN 500 MG-400 MG ORAL CAP Take one(1) tablet two(2) times daily. REVIEW OF SYSTEMS: ROS obtained at intial visit on 10/02/2021; reviewed again today without changes per patient PAIN ASSESSMENT: See HPI. GENERAL: Denies fever, chills malaise and weight loss. HEENT: No recent change in vision or hearing. CARDIOVASCULAR: HTN, Aortic disection requiring with aortic stent 2018 RESPIRATORY: DARRIUS - BIPAP GI: Denies GI ulcers, inflammatory disease, or liver disease. : Denies change in frequency or urgency, kidney disease, and burning with urination. MUSCULOSKELETAL: Upper back pain - see HPi SKIN: Denies rash or itching. PSYCHOLOGICAL: Anxiety NEURO: Denies CVA, seizures, headaches. ENDOCRINE: Denies diabetes, thyroid disease. HEMATOLOGY/LYMPHOLOGY: DVT right leg 2010 , Lymphoma B-Cell - 2004 - great remission ALLERGIC/IMMUNOLOGICAL: Denies risks for infection, or recent MRSA infections. OBJECTIVE: PHYSICAL EXAM - Exam listed is from visit on 10/02/2021; exam completed again and changes made as listed below. BP 148/69 Pulse (!) 59 Resp 16 Ht 162.6 cm (5' 4 ) Wt 64.4 kg (142 lb) SpO2 95% BMI 24.37 kg/m GENERAL APPEARANCE: Well appearing, well-hydrated, well nourished and alert SKIN: Head, neck, trunk, and extremities dry, intact and without lesions NEURO/PSYCH: oriented to time, place, and person, speech normal, mental status intact GAIT: normal, toe walking normal, heel walking normal, able to tandem gait POSTURE: Posture and spinal curves are normal PALPATION: paraspinal tenderness; thoracic MUSCULOSKELETAL: Extended Low Back & Leg Exam Lumbar Range of Motion Flexion Touches floor Extension Normal RIGHT LEFT Lateral Bending Full Full Oblique Extension Within Normal Limits Within Normal Limits Leg Raise Straight Leg Raise Negative Negative Contralateral Straight Leg Raise Negative Negative DTRs Knee Normal Normal Ankle Normal Normal Strength of Lower Extremities Extensor Hallux Longus 5/5 5/5 Ankle Dorsiflexion 5/5 5/5 Ankle Plantarflexion 5/5 5/5 Knee Extension 5/5 5/5 NEUROSENSORY: Differentiation of sharp and light touch; Within Normal Limits Neuro Tests: None Data Review: [facility] Images reviewed Images reviewed with patient 11/08/2021 - CT myelogram of spine: Cervical spondylosis without high-grade bony canal or foraminal compromise, as detailed. Levels of ventral cord approximation/abutment. Thoracolumbar postoperative changes with findings compatible with loosening involving the left T12 transpedicular screw. Spondylotic changes without high-grade bony canal or foraminal compromise in the thoracolumbar spine. 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 Imaging: XR scoliosis 2. Physical Therapy: Consult to physical therapy 3. Medication: Continue with Tylenol 650 mg 1-2 tablets TID, oxycodone 5 mg once a week if having severe pain, Gummies QHS 4. Referrals: Consult to spine surgery for left T12 loosening screw- Dr. Denise MD 5. Considerations: Defer to surgeon 6. Follow up: PRN The patient agrees with the recommendations and plan listed above and has no further questions at this time. Medical Decision Making: Problems: Moderate: 2+ stable chronic illnesses Data: Unique test result(s) reviewed: 2 Unique test(s) ordered: 1 Assessment requiring an independent historian(s) Independent interpretation of test from other physician/QHCP Risk: Moderate: Moderate risk from testing/treatment, Drug management and Decision on elective major surgery w/o risk factors Medical Decision Making Level: 4 - Moderate SIGNATURE: Inez Davies PA-C PATIENT NAME: Ijeoma Yanes DATE: November 27, 2021 TIME: 12:45 PM documented in this encounter [facility] 11-08-2021 Miscellaneous Notes Neuro SPINE CARE COORDINATION QUICK NOTE Spoke with pt who stated she had the myelogram test today and is feeling tired, she would like an in person appt with PA to review myelogram results, asked for nurse to call back tomorrow. Will contact pt tomorrow to schedule f/u appt with PA and will instruct pt to schedule appt with PCP d/t finding of bilateral thyroid nodules. documented in this encounter [facility] 11-08-2021 Note HNO ID: [id number] Author: Sonido Rich MD Service: Radiology Author Type: Resident Type: Plan of Care Filed: 11/08/2021 5:03 PM Note Text: I received a page regarding the patient not feeling well after having a lumbar puncture and CT myelogram earlier this afternoon. She explained that she was having some mild pain in the back of her neck and that her blood pressure was a little low at 106/65, compared to her normal of in the 120s/60s. She explained that she has been drinking lots of water and has been resting, per the instructions given to her after the procedure. We discussed that some neck pain after a myelogram is not unexpected and should go away with time. Her systolic blood pressure does seem lower than her baseline, but otherwise is not too far off of her normal. I told her to continue resting and keep hydrated, while watching for any worsening of her symptoms. Ultimately I explained that without evaluating her in person it is harder to get the best sense of what is going on, so if she continues to feel unwell, the pain gets continually worse, passes out, etc. that she should go to the nearest ER. Lastly, I told her that if she had further questions she could try calling back the number she initially called and ask for the neuroradiology fellow. Sonido Rich MD PGY4 [facility] 11-08-2021 Note HNO ID: [id number] Author: RT Yolanda(R) Service: Radiology Author Type: Technologist Type: Progress Notes Filed: 11/08/2021 12:42 PM Note Text: Radiology Service Progress Note PATIENT NAME: Ijeoma Yanes DATE OF SERVICE: November 08, 2021 TIME: 12:37 PM PATIENT IDENTITY VERIFICATION COMPLETED USING TWO (2) IDENTIFIERS: Name and Date of confirmed by patient verbally and Name and Date of confirmed by identification band. FALL SCREENING: Has the patient had 2 falls in the last year or 1 fall with injury or currently using an Ambulatory Assistive Device (Walker, Cane, Wheelchair, Crutches, etc.)? No PATIENT GENDER DATA: Female. status: : No status: NO. PATIENT RELEVANT IMPLANT DATA REVIEWED: Yes RADIOLOGY DEPARTMENT: CT; Exam(s) Completed: Spine PERIPHERAL IV DATA: Not applicable SIGNED BY: RT Yolanda(R) November 08, 2021 12:37 PM [facility] 10-02-2021 Note HNO ID: [id number] Author: Inez Davies PA-C Service: ? 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 Danna Zaldivar for an opinion regarding upper back pain. My final recommendations will be communicated back to the requesting physician by way of shared medical record or letter via [place] mail. Patient presents with Patient presents with upper back pain that started after Aortic stent secondary to aortic disection by Dr. Danna Zaldivar MD in 07/30/2018 Denies accident/injury Pain localized to upper back Pain described as achy, sharp Radiation: Denies Numbness/Tingling: none Denies bowel or bladder incontinence Denies difficulty with gait or balance concerns Right handed Denies difficulty with fine motor skills Pain rated 0/10, 8/10 daily 100% back pain Pain worse with Prolonged standing, prolonged standing still with home chores like dishes or cooking requiring facet loading, and walking without walker Patient able to walk 400 feet before having to stop secondary to back/leg pain with walker Pain improved with rest Heat with relief Medications: Tylenol 650 mg 1-2 tablets TID,tramadol 50 mg PRN - rarely uses, oxycodone 5 mg once a week if having severe pain, Gummies QHS Unable to take NSAIDS secondary to stent Denies recent conservative treatment to include physical therapy, chiropractor manipulation, acupuncture, or massage Treating Providers: Dr. Leslie Narvaez MD History of Spine Injections/Surgery: Jul 2016 - T12 - sacroiliac joints - Dr. Oscar MD - great relief Multiple injections prior to surgery without relief Left THR Left TKR Right TKR Worked in [employer] Activity: Not active secondary to pain ACTIVE PROBLEM LIST Lymphoma, Large Lymphoid, Diffuse (Hcc) Lymphoma, Large-Cell, Diffuse (Hcc) Hypertension Personal History of Colonic Polyps Aortic Dissection (Hcc) Bernardo (Acute Kidney Injury) (Hcc) Renal Artery Stenosis (Hcc) Atelectasis Post-Op Pain Thoracic Aortic Dissection (Hcc) Sleep Apnea Gerd (Gastroesophageal Reflux Disease) PAST MEDICAL HISTORY Diagnosis Date - Blood dyscrasia Lymphoma- in remission - Deep venous thrombosis (HCC) 09/29/2010 after foot surgery. 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 - Osteoporosis - Pneumonia due to other virus not elsewhere classified pneumonia x 2 - Rib fracture 7th rib right side from fall 07/09/15 - Sciatica right leg - Sleep apnea CPAP - Snoring - Unspecified constipation PAST SURGICAL HISTORY Procedure Laterality Date - ARTERIAL STENT PLACEMENT, INITIAL Bilateral 07/30/2018 Bilat renal artery stents - CATARACT EXTRACTION HX Bilateral 13,14 - COLONOSCOP W/ OR W/O [facility] SPEC 05/24/2005 Colonoscopy - COLONOSCOP W/ OR W/O [facility] SPEC 08/06/2014 Colonoscopy - COLONOSCOP W/ OR W/O [facility] SPEC 01/13/15 Colonoscopy - CORRECTION OF BUNION Right 2010 - EXCISION OF MEDIASTINAL TUMOR September2003 Right thoracotomy - LUMBAR SPINE FUSION COMBINED 04/2014 Has hardware - LUMBAR SPINE FUSION,ANTER APPRCH 04/2014 - OP BRONCHOS DIAG, W/WO WASHING September2003 BRONCHOSCOPY - PAST SURGICAL HISTORY OF 03/29 right knee replacement - PAST SURGICAL HISTORY OF Left 2001 wrist. External fixator - PAST SURGICAL HISTORY OF Left 12/2017 L TKR - SIGMOIDOSCOPY FLEX DIAG 10/06/15 Sigmoidoscopy, flexible - TOTAL ABDOM HYSTERECTOMY 1981 overies intact. Menorrhagia - TOTAL HIP REPLACEMENT 07/2013 left hip Social History Tobacco Use - Smoking status: Former Smoker Packs/day: 1.00 Years: 15.00 Pack years: 15.00 Types: Cigarettes Quit date: 07/15/1972 Years since quittin.2 - Smokeless tobacco: Never Used Substance Use Topics - Alcohol use: Yes Alcohol/week: 5.0 standard drinks Types: 2 Glasses of Wine (5oz) per week Comment: once or twice weekly (one glass of wine) - Drug use: No FAMILY HISTORY Problem Relation Age of Onset - Coronary Artery Disease Mother PA, dec. age 63 - Coronary Artery Disease Father PA - Aneurysm Father - Breast Cancer Sister - Breast Cancer Daughter ALLERGIES Allergen Reactions - Levaquin [Levofloxa* Rash Other reaction(s): Rash - Bisoprolol Other: See Comments Discovered after being on med 3 wks.Had been to ER in [place] And (more content not included)... [facility] 09-21-2021 Note HNO ID: [id number] Author: Danna Zaldivar MD Service: ? Author Type: Physician Type: Progress Notes Filed: 09/21/2021 1:01 PM Note Text: Patient seen today. She is doing well. She does complain of mid upper back pain. She has had previous surgeries for degenerative spine disease and has thoracic spine hardware. On examination her abdomen soft nondistended she has absent popliteal and pedal pulses her feet are otherwise warm well perfused. CAT scan with no contrast demonstrates no evidence of aneurysmal dilatation. Had a previous contrasted CAT scan which was unremarkable. ua plan to repeat a CAT scan in 2 years. Refer to spine [facility] for reevaluation Danna Zaldivar MD [facility] 09-21-2021 Note HNO ID: [id number] Author: RT Salma(R) Service: Radiology Author Type: Technologist Type: Progress Notes Filed: 09/21/2021 11:03 AM Note Text: Radiology Service Progress Note PATIENT NAME: Ijeoma Yanes DATE OF SERVICE: September 21, 2021 TIME: 11:03 AM PATIENT IDENTITY VERIFICATION COMPLETED USING TWO (2) IDENTIFIERS: Name and Date of confirmed by patient verbally and Name and Date of confirmed by identification band. FALL SCREENING: Has the patient had 2 falls in the last year or 1 fall with injury or currently using an Ambulatory Assistive Device (Walker, Cane, Wheelchair, Crutches, etc.)? No PATIENT GENDER DATA: Female. status: : No status: NO. PATIENT RELEVANT IMPLANT DATA REVIEWED: Yes RADIOLOGY DEPARTMENT: CT; Exam(s) Completed: Cardiac PERIPHERAL IV DATA: Not applicable SIGNED BY: RT Salma(R) September 21, 2021 11:03 AM [facility] documented as of this encounter (statuses as of 11/08/2021) [facility] History of Past illness Narrative* Problem Noted Date Resolved Date Chest pain 09/04/2018 09/08/2018 Overview: C/o chest pain 09/04/18 early afternoon, described as pressure across the breasts rated at 8/10. 12-lead ECG obtained, no changes from prior ECG. Was given toradol with reduction in pain to 5/10. Given another dose of toradol overnight with full resolution of pain. Continue to monitor for acute increase in pain. A/P: Denies CP this am. Continue to monitor Stress hyperglycemia 08/04/2018 08/05/2018 Overview: A/P: Perioperative insulin resistance and exacerbation of hyperglycemia. SSI ordered to maintain BG <180. Preop testing 07/25/2018 07/30/2018 Overview[facility] Surgeon: Newton Brooks M.D. Informed Consent Completed: No STS Score: Unsupported CAD: pending Is intended procedure a CABG: TBD - is a beta ivy ordered? Yes H & P completed: Yes PA/LAT: Completed CT: Completed MRI: N/A LE US: N/A Cath:pending Echo:Completed EKG: Completed EF %: Left ventricular systolic function is normal. PI's: N/A Carotid: Completed Mapping: N/A Dental: N/A PFT's: pending Recent Labs 07/25/18 0018 WBC 10.17 HB 11.2* HCT 34.5* PLT 225 INR 1.0 CREAT 1.38* UA: Abnormal HCG:N/A ABO/ABO Confirmed: Yes Blood ordered: Will need 4 units SA Swab: Yes - results: Positive SA, on bactroban Last Dose of Anticoagulation: NA Op Note: N/A Pacemaker Check: N/A Implants: no Consults: Vascular Surgery DM: No Cardiac Surgical prep: Yes SIGNATURE: Enriqueta Riggs APRN.[employer] SYSTEMS INSTALLER CHECKED BY: DATE of SERVICE: 07/25/2018 TIME of SERVICE: 10:27 AM Anemia 05/24/2015 07/23/2018 Benign neoplasm of colon 01/13/2015 015 Rectal mass 08/06/2014 08/06/2014 Vertigo 04/03/2013 07/23/2018 Hematuria 08/25/2012 11/27/2012 Deep venous thrombosis 09/29/2010 2 Lymphoma, 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 Home BP: 182/110 Wrist cuff Office BP: 197/114 Luciano BP documented as of this encounter (statuses as of 11/27/2021) [facility] History of Past illness Narrative* Problem Noted Date Resolved Date Chest pain 09/04/2018 09/08/2018 Overview: C/o chest pain 09/04/18 early afternoon, described as pressure across the breasts rated at 8/10. 12-lead ECG obtained, no changes from prior ECG. Was given toradol with reduction in pain to 5/10. Given another dose of toradol overnight with full resolution of pain. Continue to monitor for acute increase in pain. A/P: Denies CP this am. Continue to monitor Stress hyperglycemia 08/04/2018 08/05/2018 Overview: A/P: Perioperative insulin resistance and exacerbation of hyperglycemia. SSI ordered to maintain BG <180. Preop testing 07/25/2018 07/30/2018 Overview: [facility] Surgeon: Newton Brooks M.D. Informed Consent Completed: No STS Score: Unsupported CAD: pending Is intended procedure a CABG: TBD - is a beta ivy ordered? Yes H & P completed: Yes PA/LAT: Completed CT: Completed MRI: N/A LE US: N/A Cath:pending Echo:Completed EKG: Completed EF %: Left ventricular systolic function is normal. PI's: N/A Carotid: Completed Mapping: N/A Dental: N/A PFT's: pending Recent Labs 07/25/18 0018 WBC 10.17 HB 11.2* HCT 34.5* PLT 225 INR 1.0 CREAT 1.38* UA: Abnormal HCG:N/A ABO/ABO Confirmed: Yes Blood ordered: Will need 4 units SA Swab: Yes - results: Positive SA, on bactroban Last Dose of Anticoagulation: NA Op Note: N/A Pacemaker Check: N/A Implants: no Consults: Vascular Surgery DM: No Cardiac Surgical prep: Yes SIGNATURE: Enriqueta Riggs APRN.[employer] EN[employer]S INSTALLER CHECKED BY: DATE of SERVICE: 07/25/2018 TIME of SERVICE: 10:27 AM Anemia 05/24/2015 07/23/2018 Benign neoplasm of colon 01/13/2015 015 Rectal mass 08/06/2014 08/06/2014 Vertigo 04/03/2013 07/23/2018 Hematuria 08/25/2012 11/27/2012 Deep venous thrombosis 09/29/2010 2 Lymphoma, 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 Home BP: 182/110 Wrist cuff Office BP: 197/114 Luciano BP documented as of this encounter (statuses as of 11/28/2021) [facility] History of Past illness Narrative* Problem Noted Date Resolved Date Chest pain 09/04/2018 09/08/2018 Overview: C/o chest pain 09/04/18 early afternoon, described as pressure across the breasts rated at 8/10. 12-lead ECG obtained, no changes from prior ECG. Was given toradol with reduction in pain to 5/10. Given another dose of toradol overnight with full resolution of pain. Continue to monitor for acute increase in pain. A/P: Denies CP this am. Continue to monitor Stress hyperglycemia 08/04/2018 08/05/2018 Overview: A/P: Perioperative insulin resistance and exacerbation of hyperglycemia. SSI ordered to maintain BG <180. Preop testing 07/25/2018 07/30/2018 Overview: [facility] Surgeon: Newton Brooks M.D. Informed Consent Completed: No STS Score: Unsupported CAD: pending Is intended procedure a CABG: TBD - is a beta ivy ordered? Yes H & P completed: Yes PA/LAT: Completed CT: Completed MRI: N/A LE US: N/A Cath:pending Echo:Completed EKG: Completed EF %: Left ventricular systolic function is normal. PI's: N/A Carotid: Completed Mapping: N/A Dental: N/A PFT's: pending Recent Labs 07/25/18 0018 WBC 10.17 HB 11.2* HCT 34.5* PLT 225 INR 1.0 CREAT 1.38* UA: Abnormal HCG:N/A ABO/ABO Confirmed: Yes Blood ordered: Will need 4 units SA Swab: Yes - results: Positive SA, on bactroban Last Dose of Anticoagulation: NA Op Note: N/A Pacemaker Check: N/A Implants: no Consults: Vascular Surgery DM: No Cardiac Surgical prep: Yes SIGNATURE: Enriqueta Riggs APRN.[employer] INSTALLER CHECKED BY: DATE of SERVICE: 07/25/2018 TIME of SERVICE: 10:27 AM Anemia 05/24/2015 07/23/2018 Benign neoplasm of colon 01/13/2015 015 Rectal mass 08/06/2014 08/06/2014 Vertigo 04/03/2013 07/23/2018 Hematuria 08/25/2012 11/27/2012 Deep venous thrombosis 09/29/2010 2 Lymphoma, 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 Home BP: 182/110 Wrist cuff Office BP: 197/114 Luciano BP documented as of this encounter (statuses as of 11/30/2021) [facility] History of Past illness Narrative* Problem Noted Date Resolved Date Chest pain 09/04/2018 09/08/2018 Overview: C/o chest pain 09/04/18 early afternoon, described as pressure across the breasts rated at 8/10. 12-lead ECG obtained, no changes from prior ECG. Was given toradol with reduction in pain to 5/10. Given another dose of toradol overnight with full resolution of pain. Continue to monitor for acute increase in pain. A/P: Denies CP this am. Continue to monitor Stress hyperglycemia 08/04/2018 08/05/2018 Overview: A/P: Perioperative insulin resistance and exacerbation of hyperglycemia. SSI ordered to maintain BG <180. Preop testing 07/25/2018 07/30/2018 Overview: [facility] Surgeon: Newton Brooks M.D. Informed Consent Completed: No STS Score: Unsupported CAD: pending Is intended procedure a CABG: TBD - is a beta ivy ordered? Yes H & P completed: Yes PA/LAT: Completed CT: Completed MRI: N/A LE US: N/A Cath:pending Echo:Completed EKG: Completed EF %: Left ventricular systolic function is normal. PI's: N/A Carotid: Completed Mapping: N/A Dental: N/A PFT's: pending Recent Labs 07/25/18 0018 WBC 10.17 HB 11.2* HCT 34.5* PLT 225 INR 1.0 CREAT 1.38* UA: Abnormal HCG:N/A ABO/ABO Confirmed: Yes Blood ordered: Will need 4 units SA Swab: Yes - results: Positive SA, on bactroban Last Dose of Anticoagulation: NA Op Note: N/A Pacemaker Check: N/A Implants: no Consults: Vascular Surgery DM: No Cardiac Surgical prep: Yes SIGNATURE: Enriqueta Riggs APRN.[employer] INSTALLER CHECKED BY: DATE of SERVICE: 07/25/2018 TIME of SERVICE: 10:27 AM Anemia 05/24/2015 07/23/2018 Benign neoplasm of colon 01/13/2015 015 Rectal mass 08/06/2014 08/06/2014 Vertigo 04/03/2013 07/23/2018 Hematuria 08/25/2012 11/27/2012 Deep venous thrombosis 09/29/2010 2 Lymphoma, 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 Home BP: 182/110 Wrist cuff Office BP: 197/114 Luciano BP documented as of this encounter (statuses as of 12/04/2021) [facility] History of Past illness Narrative* Problem Noted Date Resolved Date Chest pain 09/04/2018 09/08/2018 Overview: C/o chest pain 09/04/18 early afternoon, described as pressure across the breasts rated at 8/10. 12-lead ECG obtained, no changes from prior ECG. Was given toradol with reduction in pain to 5/10. Given another dose of toradol overnight with full resolution of pain. Continue to monitor for acute increase in pain. A/P: Denies CP this am. Continue to monitor Stress hyperglycemia 08/04/2018 08/05/2018 Overview: A/P: Perioperative insulin resistance and exacerbation of hyperglycemia. SSI ordered to maintain BG <180. Preop testing 07/25/2018 07/30/2018 Overview: [facility] PRE[facility] Surgeon: Newton Brooks M.D. Informed Consent Completed: No STS Score: Unsupported CAD: pending Is intended procedure a CABG: TBD - is a beta ivy ordered? Yes H & P completed: Yes PA/LAT: Completed CT: Completed MRI: N/A LE US: N/A Cath:pending Echo:Completed EKG: Completed EF %: Left ventricular systolic function is normal. PI's: N/A Carotid: Completed Mapping: N/A Dental: N/A PFT's: pending Recent Labs 07/25/18 0018 WBC 10.17 HB 11.2* HCT 34.5* PLT 225 INR 1.0 CREAT 1.38* UA: Abnormal HCG:N/A ABO/ABO Confirmed: Yes Blood ordered: Will need 4 units SA Swab: Yes - results: Positive SA, on bactroban Last Dose of Anticoagulation: NA Op Note: N/A Pacemaker Check: N/A Implants: no Consults: Vascular Surgery DM: No Cardiac Surgical prep: Yes SIGNATURE: Enriqueta Riggs APRN.[employer] INSTALLER CHECKED BY: DATE of SERVICE: 07/25/2018 TIME of SERVICE: 10:27 AM Anemia 05/24/2015 07/23/2018 Benign neoplasm of colon 01/13/2015 015 Rectal mass 08/06/2014 08/06/2014 Vertigo 04/03/2013 07/23/2018 Hematuria 08/25/2012 11/27/2012 Deep venous thrombosis 09/29/2010 2 Lymphoma, 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) [facility] this encounter [facility]* Diagnosis Adolescent idiopathic scoliosis of thoracolumbar region Scoliosis (and kyphoscoliosis), idiopathic Spinal stenosis of cervical region Spinal stenosis in cervical region Spinal stenosis of thoracic region Spinal stenosis of lumbar region without neurogenic claudication Spinal stenosis, lumbar region, without neurogenic claudication 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) [facility]* Diagnosis Adolescent idiopathic scoliosis of thoracolumbar region Scoliosis (and kyphoscoliosis), idiopathic Spinal stenosis of cervical region Spinal stenosis in cervical region Spinal stenosis of thoracic region Spinal stenosis of lumbar region without neurogenic claudication Spinal stenosis, lumbar region, without neurogenic claudication 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) [facility]* Diagnosis Chronic low back pain, unspecified back pain laterality, unspecified whether sciatica present- Primary documented in this encounter [facility] for referral (narrative)* Diagnostic Procedure Only (Routine) - Closed Specialty Diagnoses / Procedures Referred By Tatiannaac t Referred To Contact XR IMAGING Diagnoses Adolescent idiopathic scoliosis of thoracolumbar region Spinal stenosis of cervical region Spinal stenosis of thoracic region 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) Procedures XR SCOLIOSIS PA STAND/LAT 2V RADEX ENTIR THRC LMBR CRV SAC SPI W/SKULL 2/3 VW Inez Davies PA-C [address] [place] [address] Xr Imaging Referral ID Status Reason Start Date Expiration Date V isits Requested Visits Authorized [id number] Closed Auto-Generate d Referral 11/27/2021 12/27/2022 1 1 * Consult, Test, Treat (Routine) - Pending Review Specialty Diagnoses / Procedures Referred By Shirley ellis Referred To Contact Diagnoses Adolescent idiopathic scoliosis of thoracolumbar region Spinal stenosis of cervical region Spinal stenosis of thoracic region 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 60-74 MINUTES Inez Davies PA-C [address] [place] [address] Nelson Walker MD [address] [place] [address] Referral ID Status Reason Start Date Expiration Date Visits Requested Visits Authorized [id number] Pending Review PCP Requested Referral 11/27/2021 11/27/2022 1 1 [facility] Diagnostic Procedure Only (Routine) - Closed Specialty Diagnoses / Procedures Referred By Contac t Referred To Contact XR IMAGING Diagnoses Adolescent idiopathic scoliosis of thoracolumbar region Spinal stenosis of cervical region Spinal stenosis of thoracic region 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) Procedures XR SCOLIOSIS PA STAND/LAT 2V RADEX ENTIR THRC LMBR CRV SAC SPI W/SKULL 2/3 Inez Subramanian PA-C [address] [place] [address] Xr Imaging Referral ID Status Reason Start Date Expiration Date V isits Requested Visits Authorized [id number] Closed Auto-Generate d Referral 11/27/2021 12/27/2022 1 1 [facility] Summary Purpose Family History No Family History Records FoundNo Family History Records FoundNo Family History Records Found Advance Directives Documents on File Type Date Recorded 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 Advance Directive(s) Advance Directive(s) 10/24/2021 9:27 AM Advance Directive(s) 10/09/2021 3:49 PM Advance Directive(s) 09/03/2018 12:48 PM Advance Directive(s) 09/03/2018 12:58 PM Advance Directive(s) 08/07/2018 5:02 PM Advance Directive(s) 07/31/2018 12:10 PM Advance Directive(s) 07/31/2018 12:09 PM Advance Directive(s) 07/24/2018 1:49 PM Advance Directive(s) 10/06/2015 8:21 AM Advance Directive(s) 09/29/2015 10:29 AM Latest Code Status on File Code Status Date Activated Date Inactivated Comments Full Code 04/25/2017 5:05 PM 05/03/2017 3:29 PM Documents on File Type Date Recorded 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 Advance Directive(s) Advance Directive(s) 10/24/2021 9:27 AM Advance Directive(s) 10/09/2021 3:49 PM Advance Directive(s) 09/03/2018 12:48 PM Advance Directive(s) 09/03/2018 12:58 PM Advance Directive(s) 08/07/2018 5:02 PM Advance Directive(s) 07/31/2018 12:10 PM Advance Directive(s) 07/31/2018 12:09 PM Advance Directive(s) 07/24/2018 1:49 PM Advance Directive(s) 10/06/2015 8:21 AM Advance Directive(s) 09/29/2015 10:29 AM Documents on File Type Date Recorded 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 Advance Directive(s) 07/31/2018 12:09 PM Latest Code Status on File Code Status Date Activated Date Inactivated Comments Full Code 04/25/2017 5:05 PM 05/03/2017 3:29 PM Reason for Referral Specialty Diagnoses / Procedures Referred By Contac t Referred To Contact [facility] Diagnoses Chronic low back pain, unspecified back pain laterality, unspecified whether sciatica present Procedures CONSULT TO PHYSICAL THERAPY PHYSICAL THERAPY EVALUATION HIGH COMPLEX 45 MINS Inez Davies PA-C [address] [place] [address] [facility] [id number] [place] [address] Referral ID Status Reason Start Date Expiration Date Visits Requested Visits Authorized [id number] Pending Review Auto-Generat ed Referral 2 05/04/2023 1 1 Additional Source Comments INFORMATION SOURCE (unrecogn ized section and content) DATE CREATED AUTHOR AUTHOR'S ORGANIZ ATION 09/05/2021 [facility] [employer] [facility] DATE CREATED AUTHOR AUTHOR'S ORGANIZ ATION 05/08/2022 [facility] Source Comments (unrecognize d section and content) In the event this informatio n is protected by the Federal Confidentiality of Alcohol and Drug Abuse Patient Records regulations: The Federal rules restrict any use of the information to criminally investigate or prosecute any alcohol or drug abuse patient.[facility] the event this information is protected by the Federal Confidentiality of Alcohol and Drug Abuse Patient Records regulations: The Federal rules restrict any use of the information to criminally investigate or prosecute any alcohol or drug abuse patient.[facility] the event this information is protected by the Federal Confidentiality of Alcohol and Drug Abuse Patient Records regulations: The Federal rules restrict any use of the information to criminally investigate or prosecute any alcohol or drug abuse patient.[facility] the event this information is protected by the Federal Confidentiality of Alcohol and Drug Abuse Patient Records regulations: The Federal rules restrict any use of the information to criminally investigate or prosecute any alcohol or drug abuse patient.[facility] the event this information is protected by the Federal Confidentiality of Alcohol and Drug Abuse Patient Records regulations: The Federal rules restrict any use of the information to criminally investigate or prosecute any alcohol or drug abuse patient.[facility] the event this information is protected by the Federal Confidentiality of Alcohol and Drug Abuse Patient Records regulations: The Federal rules restrict any use of the information to criminally investigate or prosecute any alcohol or drug abuse patient.[facility] the event this information is protected by the Federal Confidentiality of Alcohol and Drug Abuse Patient Records regulations: The Federal rules restrict any use of the information to criminally investigate or prosecute any alcohol or drug abuse patient.[facility] Reason for Visit (unrecogniz ed section and content) Reason Comments Established Patient Follow Up Reason Comments Radio Gen HB6 Specialty Diagnoses / Procedures Referred By Contac t Referred To Contact XR IMAGING Diagnoses Adolescent idiopathic scoliosis of thoracolumbar region Spinal stenosis of cervical region Spinal stenosis of thoracic region 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) Procedures XR SCOLIOSIS PA STAND/LAT 2V RADEX ENTIR THRC LMBR CRV SAC SPI W/SKULL 2/3 Inez Subramanian PA-C [address] [place] [address] Xr Imaging Referral ID Status Reason Start Date Expiration Date V isits Requested Visits Authorized [id number] Closed Auto-Generate d Referral 11/27/2021 12/27/2022 1 1 Reason Comments Opened In Error Reason Comments Patient Request Reason Comments New Patient Specialty Diagnoses / Procedures Referred By Contac t Referred To Contact Diagnoses Adolescent idiopathic scoliosis of thoracolumbar region Spinal stenosis of cervical region Spinal stenosis of thoracic region 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 60-74 MINUTES Inez Davies PA-C [address] [place] [address] Nelson Walker MD [address] [place] [address] Referral ID Status Reason Start Date Expiration Date Visits Requested Visits Authorized [id number] Pending Review PCP Requested Referral 11/27/2021 11/27/2022 1 1 Reason Comments Patient Request Care Teams (unrecognized sec tion and content) Loader Helper Relationship Specialty Start Date End Date Leslie Narvaez MD [address] [place] [id number] Physician Orthopaedic Surgery 04/19/20 Loader Helper Relationship Specialty Start Date End Date Logan Chinchilla MD PCP - General Family Practice 12/22/13 Loader Helper Relationship Specialty Start Date End Date Logan Chinchilla MD PCP - General Family Practice 12/22/13 Loader Helper Relationship Specialty Start Date End Date Logan Chinchilla MD PCP - General Family Practice 12/22/13 Loader Helper Relationship Specialty Start Date End Date Logan Chinchilla MD PCP - General Family Practice 12/22/13 Loader Helper Relationship Specialty Start Date End Date Logan Chinchilla MD PCP - General Family Medicine 12/22/13 Loader Helper Relationship Specialty Start Date End Date Leslie Narvaez MD [address] [place] [address] Physician Orthopaedic Surgery 04/19/20 FOR RECORDS PERTAINING TO PATIENTS WHO ARE OR HAVE BEEN ENROLLED IN A CHEMICAL DEPENDENCY/SUBSTANCEABUSE PROGRAM, SOME INFORMATION MAY BE OMITTED. This clinical summary was aggregated from multiple sources. Caution should be exercised in using it in the provision of clinical care. This summary normalizes information from multiple sources, and as a consequence, information in this document may materially change the coding, format and clinical context of patient data. In addition, data may be omitted in some cases. CLINICAL DECISIONS SHOULD BE BASED ON THE PRIMARY CLINICAL RECORDS. [facility]. provides no warranty or guarantee of the accuracy or completeness of information in this document.
== END | disposition home or self-care (01) ==
PROVIDERS: PCP Internal Medicine; Referring Provider Internal Medicine; Visit Provider Internal Medicine
DX: M81.0 Age-related osteoporosis without current pathological fracture (principal)
CPT/HCPCS: 77080

== ENCOUNTER → 2023-07-25 | Outpatient (CLI) | payer MEDICARE, SELFPAY ==
--- NOTE | 2023-07-25 13:25 | RAD_ITS ---
INDICATION: THORACIC SPONDYLOSIS EXAMINATION/TECHNIQUE: X-RAY - XR Spine Thoracic 3 Views COMPARISON: Prior study dated: 08/07/2021 FINDINGS: VERTEBRAE: Preserved vertebral body height. No fracture. No spondylolisthesis. Preservation of the normal thoracic kyphosis. No substantial scoliosis. DISCS: Narrowing of mid thoracic disc spaces. Endplate spondylosis. Fusion of the lower thoracic and upper lumbar spine with pedicle screws. INCLUDED CHEST/ABDOMEN: Aortic stent is again seen extending from the aortic arch to the distal descending thoracic aorta. RAD/Thoracic Spine 3 Views IMPRESSION: Degenerative changes of the thoracic spine essentially unchanged. Electronically Signed: Chan Canales MD at 13:47 EST ,
--- OUTSIDE RECORDS SUMMARY | 2023-07-25 13:50 | XMS RPT_ITS | CCD ---
Author Name Unknown Address [address] [place] [address] Organization [facility] Care Team Providers Care 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 Name Role Phone Jose CORONEL, Guera Ku Unavailable Trino BORDER MEASURER, Lars Castillo Unavailable Shelley RODRIGUEZ, Trent Marin Unavailable Jose CORONEL, Guera Ku Unavailable JACQUELINE DAWSON Unavailable Unavailable PROVIDER, UNKNOWN Attending Unavailable PROVIDER, UNKNOWN Admitting Unavailable LESLIE NARVAEZ Referring Unavailable Logan Chinchilla MD Primary Care Provider Leslie Narvaez MD Unavailable Logan Chinchilla MD Primary Care Provider INEZ DAVIES Referring Unavailab MARI Hinson Admitting Unavailable MARI LAND Attending Unavailable LOGAN CHINCHILLA [facility] Unavailable DANNA ZALDIVAR Attending Unavailable DANNA ZALDIVAR Referring Unavailable LOGAN CHINCHILLA [facility] Unavailable LOGAN CHINCHILLA [facility] Unavailable DANNA ZALDIVAR Referring Unavailable LOGAN CHINCHILLA [facility] Unavailable INEZ DAVIES Referring Unavailab NELSON Hanna Attending Unavailable INEZ DAVIES Referring Unavailab LOGAN Villareal [facility] Unavailable INEZ DAVIES Attending Unavailab LOGAN Villareal [facility] Unavailable LOGAN CHINCHILLA [facility] Unavailable INEZ DAVIES Referring Unavailab DANNA Broderick Referring Unavailable LOGAN CHINCHILLA [facility] Unavailable INEZ DAVIES Attending UnavailLeslie Garcia MD Unavailable [phone] Allergies Allergy Classification Reported Allergen(s) Allergy Type Date of Onset Reaction(s) Facility (20 sources) Bisoprolol; Translations: [BISOPROLOL] Drug Allergy 3 Other: See Comments, Other [facility] Work Phone: (16 sources) Codeine; Translations: [CODEINE] Drug Allergy 4 Other: See Comments, Other [facility] Work Phone: (8 sources) levoFLOXacin Drug Allergy 5 Rash [facility] Work Phone: (16 sources) meloxicam; Translations: [MELOXICAM] Drug Allergy 4 Unknown, Other [facility] Work Phone: (8 sources) CODEINE COUGH SYRUP drug allergy 5 Elevated BP [facility] Work Phone: (8 sources) SULFONAMIDE ANTIBIOTICS drug allergy 5 Hives [facility] Work Phone: (12 sources) levoFLOXacin; Translations: [LEVOFLOXACIN] Drug Allergy 4 Rash, [facility] Repository (9 sources) Sulfonamides (Antibiotic); Translations: [SULFA (SULFONAMIDE ANTIBIOTICS)] Propensity to adverse reactions to drug (disorder) 4 [facility] Repository (3 sources) Sulfonamides (Antibiotic); Translations: [SULFA ANTIBIOTICS] Propensity to adverse reactions to drug (disorder) 4 [facility] Repository (8 sources) sulfaSALAzine; Translations: [SULFASALAZINE] Drug Allergy 4 [facility] Medications Current Medications Medication Drug Class(es) Dates Sig (Normalized) Sig (Original) atenolol 25 mg oral tablet (14 sources) beta-Adrenergic [facility] Start: 12-04-2012 atenolol (TENORMIN) 25 MG tablet Indications: Post laminectomy syndrome , S/P lumbar fusion Take 25 mg by mouth. 0 12/04/2012 Active MLA-FAG-NRDRODT E ORAL (2 sources) [id number] E ORAL Indications: Post laminectomy syndrome , [...] 162.6 cm Nelson Walker MD Work Phone: [facility] 11-28-2021 09:53-0400 Body weight 64.41 kg Nelson Walker MD Work Phone: [facility] 11-28-2021 09:53-0400 Diastolic blood pressure 56 mm[Hg] Neslon Walker MD Work Phone: [facility] 11-28-2021 09:53-0400 Heart rate 66 /min Nelson Walker MD Work Phone: [facility] 11-28-2021 09:53-0400 Respiratory rate 16 /min Nelsno Walker MD Work Phone: [facility] 11-28-2021 09:53-0400 SaO2% (BldA) [Mass fraction] 96 % Nelson Walker MD Work Phone: [facility] 11-28-2021 09:53-0400 Systolic blood pressure 132 mm[Hg] Nelson Walker MD Work Phone: [facility] 11-27-2021 12:28-0400 Body height 162.6 cm Inez Mitch PA-C Work Phone: [facility] 11-27-2021 12:28-0400 Body weight 64.41 kg Inez Mitch PA-C Work Phone: [facility] 11-27-2021 12:28-0400 Diastolic blood pressure 69 mm[Hg] Inez Mitch PA-C Work Phone: [facility] 11-27-2021 12:28-0400 Heart rate 59 /min Inez Mitch PA-C Work Phone: [facility] 11-27-2021 12:28-0400 Respiratory rate 16 /min Inez Mitch PA-C Work Phone: [facility] 11-27-2021 12:28-0400 SaO2% (BldA) [Mass fraction] 95 % Inez Mitch PA-C Work Phone: [facility] 11-27-2021 12:28-0400 Systolic blood pressure 148 mm[Hg] Inez Mitch PA-C Work Phone: [facility] 04-22-2017 08:28-0400 BMI (Body Mass Index) 25.96 kg/m2 Trent Rosa MD [facility] Work Phone: 04-22-2017 08:28-0400 BP Diastolic 64 mm[Hg] Trent Rosa MD [facility] Work Phone: 04-22-2017 08:28-0400 BP Systolic 130 mm[Hg] Trent Rosa MD [facility] Work Phone: 04-22-2017 08:28-0400 Height 165.1 cm Trent Rosa MD [facility] Work Phone: 04-22-2017 08:28-0400 Pulse (Heart Rate) 64 /min [facility] Work Phone: 04-22-2017 08:28-0400 Respiratory Rate 18 /min Trent Rosa MD [facility] Work Phone: 04-22-2017 08:28-0400 Weight 70.76 kg Trent Rosa MD [facility] Work Phone: 11-07-2016 13:12-0400 BMI (Body Mass Index) 25.96 kg/m2 [facility] Work Phone: 11-07-2016 13:12-0400 Body Temperature 98 [degF] Guera Garcia RN [facility] Work Phone: 11-07-2016 13:12-0400 BP Diastolic 79 mm[Hg] Guera Garcia RN [facility] Work Phone: 11-07-2016 13:12-0400 BP Systolic 166 mm[Hg] Guera Garcia RN [facility] Work Phone: 11-07-2016 13:12-0400 Height 165.1 cm Guera Garcia RN [facility] Work Phone: 11-07-2016 13:12-0400 Pulse (Heart Rate) 57 /min [facility] Work Phone: 11-07-2016 13:12-0400 Respiratory Rate 18 /min Guera Garcia RN [facility] Work Phone: 11-07-2016 13:12-0400 Weight 70.76 kg Guera Garcia RN [facility] Work Phone: 09-03-2016 13:47-0500 Body Temperature 98.06 [degF] [facility] Work Phone: 09-03-2016 13:47-0500 BSA (Body Surface Area) 1.76 m2 Guera Garcia RN [facility] Work Phone: 09-03-2016 13:47-0500 Height 165.1 cm Guera Garcia RN [facility] Work Phone: 09-03-2016 13:47-0500 Weight 69.09 kg Guera Garcia RN [facility] Work Phone: 09-09-2014 15:21-0500 Heart rate 44 /min Guera Garcia RN [facility] Work Phone: Encounters Encounter Date Encounter Type Care Provider Facility Start: 11-25-2022 Letter encounter Leslie pathak MD Work Phone: [facility] Start: 05-03-2022 Telephone encounter Inez Davies PA-C Work Phone: [facility] Procedures Date Procedure Procedure Detail Performing Clinician Start: 11-27-2021 Radex entir thrc lmb r crv sac spi w/skull 2/3 vw Inez Davies PA-C Work Phone: Start: 07-23-2018 Antibody screen JACQUELINE DAWSON Plan of Treatment Date Care Activity Detail Author Start: 03-15-2022 Influenza vaccination INFLUENZA (#1) [facility] Start: 02-13-2022 COVID-19 VACCINE (5 - Booster for Moderna series) COVID-19 VACCINE (5 - Booster for Moderna series) [facility] Start: 12-09-2021 COVID-19 VACCINE (5 - Booster for Moderna series) COVID-19 VACCINE (5 - Booster for Moderna series) [facility] Start: 11-06-2021 DIABETES SCREEN DIABETES SCREEN [facility] Start: 07-15-2021 ADVANCE DIRECTIVE DISCUSSION ADVANCE DIRECTIVE DISCUSSION [facility] Start: 07-15-2021 DEPRESSION ASSESSMENT DEPRESSION ASSESSMENT [facility] Start: 05-03-2018 Basic metabolic 2000 panel - Serum or Plasma Basic Metabolic Panel [facility] Start: 07-03-2017 End: 07-03-2017 Appointment Appointment [facility] Work Phone: Start: 04-22-2017 End: 04-22-2017 Appointment Appointment [facility] Work Phone: Start: 04-16-2017 End: 04-16-2017 24 hour holter monitor 24 hour holter monitor [facility] Work Phone: Start: 11-07-2016 End: 02-20-2017 MARK FLORES [facility] Work Phone: Start: 11-07-2016 End: 02-20-2017 Follow Up Appt 1 year Follow Up Appt 1 year [facility] Work Phone: Start: 09-21-2016 End: 09-21-2016 Follow Up Appt 9 months Follow Up Appt 9 months [facility] Work Phone: Start: 09-21-2016 End: 09-21-2016 PFM PFM [facility] Work Phone: Start: 09-03-2016 End: 10-04-2016 BWMercy FLORES [facility] Work Phone: Start: 09-03-2016 End: 10-04-2016 Follow Up Appt 3 months Follow Up Appt 3 months [facility] Work Phone: Start: 09-03-2016 End: 10-04-2016 Retitration with follow up (patient on CPAP currently) Retitration with follow up (patient on CPAP currently) [facility] Work Phone: Start: 02-13-2016 End: 02-13-2016 Carotid duplex Carotid duplex [facility] Work Phone: Start: 02-13-2016 End: 02-13-2016 Follow Up Appt 6 months Follow Up Appt 6 months [facility] Work Phone: Start: 02-13-2016 End: 02-13-2016 Nuclear stress test -Lexiscan Nuclear stress test -Lexiscan [facility] Work Phone: Start: 02-13-2016 End: 02-13-2016 PFM PFM [facility] Work Phone: Start: 07-04-2015 End: 07-04-2015 CSM [facility] Work Phone: Start: 07-04-2015 End: 07-04-2015 Follow Up Appt 3 months Follow Up Appt 3 months [facility] Work Phone: Start: 07-04-2015 End: 07-04-2015 Pulmonary Function Test - complete Pulmonary Function Test - complete [facility] Work Phone: Start: 06-20-2015 End: 06-20-2015 Follow Up BP Check Follow Up BP Check [facility] Work Phone: Start: 06-03-2015 End: 06-03-2015 Follow Up Appt 6 months Follow Up Appt 6 months [facility] Work Phone: Start: 06-03-2015 End: 06-03-2015 PFM PFM [facility] Work Phone: Start: 03-07-2015 End: 03-07-2015 Follow Up Appt 3 months Follow Up Appt 3 months [facility] Work Phone: Start: 03-07-2015 End: 03-07-2015 PFM PFM [facility] Work Phone: Start: 12-29-2014 End: 12-29-2014 Physical Therapy General Physical Therapy General Rehab [facility], [address] [place] [address], [address] [facility] Work Phone: Start: 12-10-2014 End: 12-10-2014 Follow Up Appt 3 months Follow Up Appt 3 months [facility] Work Phone: Start: 12-10-2014 End: 12-10-2014 PFM PFM [facility] Work Phone: Start: 10-05-2014 End: 10-05-2014 Vascular Surgery [place], [address] [place] [address] Andre[place], [address], [address] [facility] Work Phone: Start: 09-09-2014 End: 09-09-2014 Ecg routine ecg w/least 12 lds w/i&r EKG (In office) [facility] Work Phone: Start: 09-09-2014 End: 09-09-2014 Echocardiography Echocardiogram (complete) [facility] Work Phone: Start: 09-09-2014 End: 09-09-2014 Follow Up Appt 3 months Follow Up Appt 3 months [facility] Work Phone: Start: 09-09-2014 End: 09-09-2014 PFM PFM [facility] Work Phone: Start: 09-09-2014 End: 09-09-2014 Renal doppler Renal doppler [facility] Work Phone: Start: 08-25-2014 End: 08-29-2014 *CBC with Differential *CBC with Differential [facility] Work Phone: Start: 08-25-2014 End: 08-29-2014 Bacteria identified Cx Nom (Body fld) *CUBF- Culture, Body Fluid [facility] Work Phone: Start: 08-25-2014 End: 08-29-2014 Crystals LM Nom (Body fld) *ERON - Crystals, Body Fluid [facility] Work Phone: Start: 08-25-2014 End: 08-29-2014 Glucose mass conc (Body fld) *GLUBF - Glucose, Body Fluid [facility] Work Phone: Start: 08-25-2014 End: 08-29-2014 Microscopic observation Gram stain Nom (Unsp spec) *GS - Gram Stain [facility] Work Phone: Start: 08-25-2014 End: 08-29-2014 Protein mass conc (Body fld) *PROBF - Protein, Body Fluid [facility] Work Phone: Start: 08-25-2014 End: 08-29-2014 Radiologic exam knee complete 4/more views X-Ray, Knee [facility] Work Phone: Start: 06-03-2013 Shingles (RZV) Vaccine (2 of 3) Shingles (RZV) Vaccine (2 of 3) [facility] Start: 05-10-2013 SHINGRIX VACCINE (1 of 2) SHINGRIX VACCINE (1 of 2) [facility] Start: 05-10-2013 SHINGRIX VACCINE (2 of 3) SHINGRIX VACCINE (2 of 3) [facility] Start: 05-08-2007 Pneumococcal vaccination Pneumococcal Vaccine(s) (65+ yrs) (2 - PCV) [facility] Start: 05-08-2007 PNEUMOCOCCAL: 65+ (2 - PCV) PNEUMOCOCCAL: 65+ (2 - PCV) [facility] Start: 11-12-2005 Annual wellness visit Annual Wellness Visit (G0438) [facility] Start: 2003 Screening for osteoporosis Bone Densitometry [facility] Start: 1957 Urine microalbumin profile DTAP,TDAP,TD (1 - Tdap) [facility] Start: 02-13-1956 Tetanus + diphtheria + acellular pertussis vaccine (product) Tdap Booster [facility] Patient Education OSTEOARTHRITIS [facility] Work Phone: [address] Immunizations Immunization Date Immunization Notes Care Provider Fa [facility] 03-20-2022 Influenza, injectabl e, high-dose seasonal, quadrivalent, 0.7 mL, preservative free (DHS=158) Leslie Narvaez MD Work Phone: [facility] 10-14-2021 Moderna SARS-COV-2 (COVID-19) vaccine, mRNA, spike protein, LNP, preservative free, 100 mcg/0.5 mL (primary) or 50 mcg/0.25 mL (booster) (XQA=055) Leslie Narvaez MD Work Phone: [facility] 03-11-2021 Influenza, injectabl e, high-dose seasonal, quadrivalent, 0.7 mL, preservative free (EZE=316) Leslie Narvaez MD Work Phone: [facility] 09-01-2020 Moderna SARS-COV-2 (COVID-19) vaccine, mRNA, spike protein, LNP, preservative free, 100 mcg/0.5 mL (primary) or 50 mcg/0.25 mL (booster) (SYZ=952) Leslie Narvaez MD Work Phone: [facility] 08-04-2020 Moderna SARS-COV-2 (COVID-19) vaccine, mRNA, spike protein, LNP, preservative free, 100 mcg/0.5 mL (primary) or 50 mcg/0.25 mL (booster) (PQN=475) Leslie Narvaez MD Work Phone: [facility] 03-28-2020 Influenza, injectabl e, high-dose seasonal, quadrivalent, 0.7 mL, preservative free (FSY=996) Leslie Narvaez MD Work Phone: [facility] 04-01-2019 influenza, high dose seasonal, preservative-free Leslie Narvaez MD Work Phone: [facility] 03-24-2019 influenza, seasonal, injectable, preservative free Leslie Narvaez MD Work Phone: [facility] 03-22-2017 influenza, high dose seasonal, preservative-free Inez Mitch PA-C Work Phone: [facility] 03-15-2017 influenza, seasonal, injectable Inez Mitch PA-C Work Phone: [facility] 03-15-2017 influenza, seasonal, injectable, preservative free Leslie Narvaez MD Work Phone: [facility] 03-15-2017 Seasonal, trivalent, recombinant, injectable influenza vaccine, preservative free Inez Mitch PA-C Work Phone: [facility] 06-23-2016 influenza, high dose seasonal, preservative-free Inez Mitch PA-C Work Phone: [facility] 04-25-2015 influenza, high dose seasonal, preservative-free Inez Mitch PA-C Work Phone: [facility] 04-08-2013 zoster vaccine, live Lamonte Narvaez MD Work Phone: [facility] 03-15-2013 zoster vaccine, live Inez Mitch PA-C Work Phone: [facility] Work Phone: 04-14-2012 influenza virus vaccine, unspecified formulation Inez Mitch PA-C Work Phone: [facility] Work Phone: 04-17-2011 influenza virus vaccine, unspecified formulation Inez Mitch PA-C Work Phone: [facility] Work Phone: 04-25-2010 influenza virus vaccine, unspecified formulation Inez Mitch PA-C Work Phone: [facility] Work Phone: 08-02-2009 novel [id number], preservative-free, injectable Inez Mitch PA-C Work Phone: [facility] 04-09-2009 influenza virus vaccine, unspecified formulation Inez Mitch PA-C Work Phone: [facility] 05-20-2008 influenza virus vaccine, unspecified formulation Inez Mitch PA-C Work Phone: [facility] 05-26-2007 influenza virus vaccine, unspecified formulation Inez Mitch PA-C Work Phone: [facility] 05-20-2006 influenza virus vaccine, unspecified formulation Inez Mitch PA-C Work Phone: [facility] 05-08-2006 pneumococcal polysaccharide vaccine, 23 valent Inez Mitch PA-C Work Phone: [facility] 05-11-2005 influenza virus vaccine, unspecified formulation Inez Mitch PA-C Work Phone: [facility] Work Phone: NEGATED: Highlighted row has not occurred!08-08-2018 influenza, high dose seasonal, preservative-free Inez Mitch PA-C Work Phone: [facility] Payers Date Payer Category Payer Medicare [employer]NA MEDICARE HU[employer]NA GOLD PLUS [id number] 2021-Present [phone] [address] [address] [place] [address] HMO [id number] 2021 Private Health Insurance [id number] 2018 Unknown [id number] 2018 Unknown [employer] TRADITIONAL [id number] 2018-Present [address] [place] [address] Indemnity [id number] 2004 Medicare [id number] 2003 Medicare [id number] 1940 Unknown [id number] Social History Date Type Detail Facility Start: 11-03-2015 End: 04-16-2017 Tobacco smoking status NHIS Ex-smoker [facility] Work Phone: End: 07-15-1972 History of tobacco use Current smoker [facility] Work Phone: End: 07-15-1972 History of tobacco use Cigarette Smoker [facility] Work Phone: Start: 04-20-2020 End: 10-02-2021 Alcohol intake Current drinker of alcohol (finding) [facility] Start: 04-20-2020 End: 10-02-2021 Alcohol intake [facility] Start: 1940 Sex Assigned At Not on file [facility] Start: 10-29-2021 End: 11-27-2021 Exposure to SARS-CoV-2 (event) Not sure [facility] Start: 11-03-2015 End: 04-16-2017 Tobacco use and exposure Smokeless tobacco non-user [facility] Start: 04-16-2017 Tobacco Comment [facility]uit [facility] Start: 1940 Sex Assigned At Female C [facility] Medical Equipment Procedure Code Equipment Code Equipment Origin al Text Equipment Identifier Dates Stent Express Sd Monorail 7mm Stainless Steel 19mm 150cm Biliary Premount - [id number] Start: 07-30-2018 Clinical Notes 09-04-2018 to 05-04-2022 Telephone Encounter - Miracle Price RN - 05/04/2022 9:17 AM EDTTelephone Encounter - Inez Davies PA-C - 05/04/2022 8:57 AM EDTNelson Walker MD - 11/28/2021 9:50 AM EDT Note Date & Type Note Facility 05-04-2022 Miscellaneous Notes Neuro SPINE CARE COORDINATION QUICK NOTE PT order faxed to requested location. Miracle Price RN Manager Services New Order for PT placed per patient request. Will have team fax to facility of choice [facility] 11/27/2021 Patient to follow up with me after PT if still having symptoms Inez Davies PA-C May 04, 2022 8:57 AM Pt called; asking if LUCY can write her another order for physical therapy. Please send to: [facility] Please advise; ph; [phone] documented in this encounter [facility] 11-30-2021 Miscellaneous Notes At pt's request: Faxed CT Lumbar, Thoracic and Cervical Myelogram Reports to her PCP: Logan Chinchilla MD Sent via RT Fax electronic transmission documented in this encounter [facility] 11-28-2021 Note HNO ID: [id number] Author: Nelson Walker MD Service: ? Author [...] 10/23/2005 - [facility], unspecified site, extranodal and [...] of Onset - Coronary Artery Disease Mother ID, dec. age 63 - Coronary Artery Disease Father ID - Aneurysm Father - Breast Cancer Sister [...] med 3 wks.Had been to ER in [place] And an urgent care md Abram (more content not included)... [facility] 11-28-2021 History of Presen t illness [...] Age of Onset Coronary Artery Disease Mother ID, dec. age 63 Coronary Artery Disease Father ID Aneurysm Father Breast Cancer Sister Breast Cancer [...] med 3 wks.Had been to ER in [place] And an urgent care md Bleeding Discovered after being on med 3 wks.Had been to ER in [place] And an urgent care md Meghan Other: [...] guidelines link. BIOTIN ORAL Take by mouth. [place]-3 Fatty Acids-Vitamin E (FISH OIL) 1,000 mg [...] column of spine (HCC) As above, Ijeoma Yanes is a 81 year old female with [...] Past Histories independently gathered by the clinical call center support representative and the remaining scribed note accurately describes my personal service to the patient. documented in this encounter [facility] 11-27-2021 Note HNO ID: [id number] Author: RT Alyssa(R) Service: Radiology Author Type: [...] RT Alyssa(R) November 27, 2021 1:39 PM [facility] 11-27-2021 Note HNO ID: [id number] Author: Inez Davies PA-C Service: ? Author Type: Physician Unit Nurse Type: Progress Notes Filed: 11/27/2021 1:24 PM [...] - Smokeless t (more content not included)... 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 age 63 Coronary Artery Disease Father ID Aneurysm Father Breast Cancer Sister Breast Cancer Daughter ALLERGIES Allergen Reactions Levaquin [Levofloxa* Rash Other reaction(s): Rash Bisoprolol Other: See Comments Discovered after being on med 3 wks.Had been to ER in [place] And an urgent care md Bleeding Discovered after being on med 3 wks.Had been to ER in [place] And an urgent care md Meghan Other: [...] guidelines link. BIOTIN ORAL Take by mouth. [place]-3 Fatty Acids-Vitamin E (FISH OIL) 1,000 mg [...] TIME: 12:45 PM documented in this encounter [facility] 11-08-2021 Miscellaneous Notes Neuro SPINE CARE [...] bilateral thyroid nodules. documented in this encounter [facility] 11-08-2021 Note HNO ID: [id number] Author: Sonido Rich MD Service: Radiology Author [...] the neuroradiology fellow. Sonido Rich MD PGY4 Inpatient Care Manager Rn [facility] 11-08-2021 Note HNO ID: [id number] Author: RT Yolanda(R) Service: Radiology Author Type: [...] RT Yolanda(R) November 08, 2021 12:37 PM [facility] 10-02-2021 Note HNO ID: [id number] Author: Inez Davies PA-C Service: ? Author Type: Physician Unit Nurse Type: Progress Notes Filed: 10/02/2021 5:51 PM [...] Bilateral 13,14 - COLONOSCOP W/ OR W/O [facility] 05/24/2005 Colonoscopy - COLONOSCOP W/ OR W/O [facility] 08/06/2014 Colonoscopy - COLONOSCOP W/ OR W/O [facility] 01/13/15 Colonoscopy - CORRECTION OF [...] of Onset - Coronary Artery Disease Mother ID, dec. age 63 - Coronary Artery Disease Father ID - Aneurysm Father - Breast Cancer Sister - Breast Cancer Daughter ALLERGIES Allergen Reactions - Levaquin [Levofloxa* Rash Other reaction(s): Rash - Bisoprolol Other: See Comments Discovered after being on med 3 wks.Had been to ER in [place] And (more content not included)... [facility] 09-21-2021 Note HNO ID: [id number] Author: Danna Zaldivar MD Service: ? Author [...] scan in 2 years. Refer to [facility] [place] for reevaluation Danna Zaldivar MD [facility] 09-21-2021 Note HNO ID: [id number] Author: RT Salma(R) Service: Radiology Author Type: [...] RT Salma(R) September 21, 2021 11:03 AM [facility] documented as of this encounter (statuses as of 11/08/2021) [facility]02-21-2019 History of Past illness Narrative* Problem [...] Cardiac Surgical prep: Yes SIGNATURE: Enriqueta Riggs APRN.GENETICS TEACHER CHECKED BY: DATE of SERVICE: 07/25/2018 TIME [...] of this encounter (statuses as of 11/27/2021) [facility]2019 History of Past illness Narrative* Problem [...] Cardiac Surgical prep: Yes SIGNATURE: Enriqueta Riggs APRN.GENETICS TEACHER CHECKED BY: DATE of SERVICE: 07/25/2018 TIME [...] of this encounter (statuses as of 11/28/2021) [facility]2019 History of Past illness Narrative* Problem [...] Cardiac Surgical prep: Yes SIGNATURE: Enriqueta Riggs APRN.GENETICS TEACHER CHECKED BY: DATE of SERVICE: 07/25/2018 TIME [...] of this encounter (statuses as of 11/30/2021) [facility]2019 History of Past illness Narrative* Problem [...] Cardiac Surgical prep: Yes SIGNATURE: Enriqueta Riggs APRN.GENETICS TEACHER CHECKED BY: DATE of SERVICE: 07/25/2018 TIME [...] of this encounter (statuses as of 12/04/2021) [facility] History of Past illness Narrative* Problem [...] Cardiac Surgical prep: Yes SIGNATURE: Enriqueta Riggs APRN.GENETICS TEACHER CHECKED BY: DATE of SERVICE: 07/25/2018 TIME [...] of this encounter (statuses as of 05/04/2022) [facility] Diagnosis Adolescent idiopathic scoliosis of thoracolumbar region- Primary Scoliosis (and kyphoscoliosis), idiopathic Spinal stenosis of cervical region Spinal stenosis in cervical region Spinal stenosis of thoracic region Spinal stenosis of lumbar region without neurogenic claudication Spinal stenosis, lumbar region, without neurogenic claudication 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) [facility] encounter [facility] Diagnosis Adolescent idiopathic scoliosis of thoracolumbar region Scoliosis (and kyphoscoliosis), idiopathic Spinal stenosis of cervical region Spinal stenosis in cervical region Spinal stenosis of thoracic region Spinal stenosis of lumbar region without neurogenic claudication Spinal stenosis, lumbar region, without neurogenic claudication 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) [facility] Diagnosis Adolescent idiopathic scoliosis of thoracolumbar region Scoliosis (and kyphoscoliosis), idiopathic Spinal stenosis of cervical region Spinal stenosis in cervical region Spinal stenosis of thoracic region Spinal stenosis of lumbar region without neurogenic claudication Spinal stenosis, lumbar region, without neurogenic claudication 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) [facility] Diagnosis Chronic low back pain, unspecified back pain laterality, unspecified whether sciatica present- Primary documented in this encounter [facility] for referral (narrative)* Diagnostic Procedure Only (Routine) [...] SPI W/SKULL 2/3 VW Inez Davies PA-C [address] [place] [address] Xr Imaging Referral ID Status Reason Start Date Expiration Date V isits Requested Visits Authorized [id number] Closed Auto-Generate d Referral 11/27/2021 12/27/2022 1 1 * Consult, Test, Treat (Routine) - Pending Review Specialty Diagnoses / Procedures Referred By Sihrley ellis Referred To Contact Diagnoses Adolescent idiopathic scoliosis of thoracolumbar region Spinal stenosis of cervical region Spinal stenosis of thoracic region 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) Procedures CONSULT TO SPINE SURGERY OFFICE/OUTPATIENT [facility] 60-74 MINUTES Inez Davies PA-C [address] [place] [address] Nelson Walker MD [address] [place] [address] Referral ID Status Reason Start Date Expiration Date Visits Requested Visits Authorized [id number] Pending Review PCP Requested Referral 11/27/2021 11/27/2022 [...] SAC SPI W/SKULL 2/3 Inez Subramanian PA-C [address] [place] [address] Xr Imaging Referral ID Status Reason Start Date Expiration Date V isits Requested Visits Authorized [id number] Closed Auto-Generate d Referral 11/27/2021 12/27/2022 1 1 [facility] Summary Purpose Family History No Family History Records FoundNo Family History Records FoundNo Family History Records Found Advance Directives Documents on File Type Date Recorded 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 Advance Directive(s) Advance Directive(s) 10/24/2021 [...] Documents on File Type Date Recorded 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 Advance Directive(s) Advance Directive(s) 10/24/2021 9:27 AM Advance Directive(s) 10/09/2021 3:49 PM Advance Directive(s) 09/03/2018 12:48 PM Advance Directive(s) 09/03/2018 12:58 PM Advance Directive(s) 08/07/2018 5:02 PM Advance Directive(s) 07/31/2018 12:10 PM Advance Directive(s) 07/31/2018 12:09 PM Advance Directive(s) 07/24/2018 1:49 PM Advance Directive(s) 10/06/2015 8:21 AM Advance Directive(s) 09/29/2015 10:29 AM Documents on File Type Date Recorded 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 Advance Directive(s) 07/31/2018 12:09 PM [...] HIGH COMPLEX 45 MINS Inez Davies PA-C [address] [place] [address] [facility] [id number] [place] [address] Referral ID Status Reason Start Date Expiration Date Visits Requested Visits Authorized [id number] Pending Review Auto-Generat ed Referral 2 05/04/2023 1 1 Additional Source Comments INFORMATION SOURCE (unrecogn ized section and content) DATE CREATED AUTHOR AUTHOR'S ORGANIZ ATION 09/05/2021 [employer] DATE CREATED AUTHOR AUTHOR'S ORGANIZ ATION 05/08/2022 [facility] Source Comments (unrecognize d section and content) In the event this informatio n is protected by the Federal Confidentiality of Alcohol and Drug Abuse Patient Records regulations: The Federal rules restrict any use of the information to criminally investigate or prosecute any alcohol or drug abuse patient.[facility] event this information is protected by the Federal Confidentiality of Alcohol and Drug Abuse Patient Records regulations: The Federal rules restrict any use of the information to criminally investigate or prosecute any alcohol or drug abuse patient.[facility] the event this information is protected by the Federal Confidentiality of Alcohol and Drug Abuse Patient Records regulations: The Federal rules restrict any use of the information to criminally investigate or prosecute any alcohol or drug abuse patient.[facility] the event this information is protected by the Federal Confidentiality of Alcohol and Drug Abuse Patient Records regulations: The Federal rules restrict any use of the information to criminally investigate or prosecute any alcohol or drug abuse patient.[facility] the event this information is protected [...] or prosecute any alcohol or drug abuse patient.[facility] the event this information is protected by the Federal Confidentiality of Alcohol and Drug Abuse Patient Records regulations: The Federal rules restrict any use of the information to criminally investigate or prosecute any alcohol or drug abuse patient.[facility] Reason for Visit (unrecogniz ed section [...] SAC SPI W/SKULL 2/3 Inez Subramanian PA-C [address] [place] [address] Xr Imaging Referral ID Status Reason Start Date Expiration Date V isits Requested Visits Authorized [id number] Closed Auto-Generate d Referral 11/27/2021 12/27/2022 1 [...] (HCC) Procedures CONSULT TO SPINE SURGERY OFFICE/OUTPATIENT [facility] 60-74 MINUTES Inez Davies PA-C [address] [place] [address] Nelson Walker MD [address] [place] [address] Referral ID Status Reason Start Date Expiration Date Visits Requested Visits Authorized [id number] Pending Review PCP Requested Referral 11/27/2021 11/27/2022 1 1 Reason Comments Patient Request Care Teams (unrecognized sec tion and content) 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 Relationship Specialty Start Date End Date Leslie Narvaez MD [address] [place] [id number] Physician Orthopaedic Surgery 04/19/20 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 Relationship Specialty Start Date End Date Logan Chinchilla MD PCP - General Family Practice 12/22/13 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 Relationship Specialty Start Date End Date Logan Chinchilla MD PCP - General Family Practice 12/22/13 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 [facility]. provides no warranty or guarantee of the accuracy or completeness of information in this document.
== END | disposition home or self-care (01) ==
LOC: RAD 13:19
PROVIDERS: PCP Internal Medicine; Referring Provider Anesthesiology; Visit Provider Anesthesiology
DX: M47.894 Other spondylosis, thoracic region (principal)
CPT/HCPCS: 72072

== ENCOUNTER → 2023-08-15 | Outpatient (CLI) | payer MEDICARE, SELFPAY ==
--- NOTE | 2023-08-15 13:29 | BI_ITS ---
MAMMOGRAPHY - BILATERAL SCREENING REASON FOR EXAM: Female, 83 years old. Routine annual screening examination. PERTINENT HISTORY: Daughter with breast cancer. Sister with breast cancer. TECHNIQUE: Digital bilateral breast dionicio (3D mammographic acquisition) in the CC and MLO projections. 2-D mediolateral oblique (MLO) and craniocaudad (CC) views of both breasts were obtained. CAD: Full Field Digital Mammography with Computer Added Detection was performed. COMPARISON: Comparison is made with prior study dated February 10, 2023 and July 13, 2021 FINDINGS: Breast Composition: The breasts are heterogeneously dense, which may obscure small masses. There are no dominant masses or suspicious calcifications. Stable benign-appearing left axillary lymph nodes. Stable bilateral secretory calcifications. Stable asymmetry of breast tissue or more breast tissue is seen in the upper outer quadrant of the left breast as compared to the right side. No other significant abnormalities are identified. There has been no significant change since the prior study. BI/SCRN MAMM (CAD)W/DIONICIO BILAT IMPRESSION: Stable bilateral screening mammogram. Yearly follow-up mammogram recommended. (A) ASSESSMENT CATEGORY: BIRADS Category 2: Benign. A letter regarding these results will be sent to the patient by the facility within 30 days. Approximately 10% of breast cancers are not detected by mammography. A normal mammogram should not delay biopsy of a clinically suspicious abnormality. [id number] Electronically Signed: Selvin Price MD at 14:57 EST ,
== END | disposition home or self-care (01) ==
LOC: OPBI 13:27
PROVIDERS: PCP Internal Medicine; Referring Provider Nurse Practitioner Women's Health; Visit Provider Nurse Practitioner Women's Health
DX: Z12.31 Encounter for screening mammogram for malignant neoplasm of breast (principal); Z80.3 Family history of malignant neoplasm of breast
CPT/HCPCS: 77063; 77067

== ENCOUNTER → 2023-09-10 | Outpatient (CLI) | payer MEDICARE, SELFPAY ==
--- NOTE | 2023-09-10 14:35 | RAD_ITS ---
STUDY: X-RAY CHEST REASON FOR EXAM: Female, 83 years old. Cough. TECHNIQUE: Frontal and lateral views of the chest. COMPARISON: 07/25/2023 FINDINGS: Stable hyperinflation. Blunting of both costophrenic angles, left greater than right representing small effusions or pleural thickening. Stable marked cardiomegaly. Normal mediastinum and jonas. Prominent central pulmonary arteries, unchanged. 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 Arthrosis of both glenohumeral joints unchanged. Bilateral carotid calcification, left greater than right, unchanged. No abnormality of the visualized soft tissue structures of the upper abdomen. RAD/Chest PA and Lateral IMPRESSION: Stable chest with no acute or emergent superimposed finding. Electronically Signed: Juancarlos Jacobo MD at 9:28 EST ,
== END | disposition home or self-care (01) ==
LOC: MTRAD 14:34
PROVIDERS: PCP Internal Medicine; Referring Provider Nurse Practitioner; Visit Provider Nurse Practitioner
DX: R05.9 Cough, unspecified (principal)
CPT/HCPCS: 71046